=== PATIENT | female | born 1950 | race African-American/Black ===

== ENCOUNTER 2020-01-24 17:23 | Observation (INO) | payer OTHER, SELFPAY ==
[2020-01-24] VITALS (9 sets, daily range): BP systolic 128–148; BP diastolic 79–86; PULSE 65–76; RESP 18–21; TEMP 36.3–37.2; O2SAT 91–100
--- NOTE | ~2020-01-24 | XR_ITS ---
EXAMINATION: XR chest 1V portable INDICATION: Hypoxia and shortness of breath TECHNIQUE: Portable AP chest at 1835 hours COMPARISON: 06/08/2018 FINDINGS: The lungs are free of acute opacities. There is no pleural effusion or pneumothorax. The ca rdiomediastinal silhouette is normal. There is mild osteoarthritis of the shoulders. IMPRESSION: 1. No acute cardiopulmonary abnormality. Reviewed, dictated and finalized at location A. [employer]
--- NOTE | 2020-01-24 17:34 | ED.SOB ---
HPI - SOB/Dyspnea General Chief Complaint: Shortness of Breath/Dyspnea Stated Complaint: SOB Time Seen by Provider: 01/24/20 17:30 Source: EMS Mode of arrival: EMS Limitations: no limitations History of Present Illness HPI Narrative: Patient is a 69-year-old female with a history of congestive heart failure, hypertension, schizophrenia, COPD, asthma, diabetes, previous CVA who presents for evaluation of low oxygen saturation. Patient reportedly had oxygen saturation of 85% at outside care facility, and EMS was called. For EMS, oxygen saturation was 95% on room air. Patient was transferred to our facility is 88-91% on room air. She is denying any chest pain, she reports some nausea without vomiting. She is denying current cough or shortness of breath. Patient reports chronic right knee swelling consistent with her osteoarthritis. She is denying any other acute pain. Patient with recent Covid swab negative per EMS. Related Data Home Medications Medication Instructions Recorded Confirmed amlodipine 01/24/20 aripiprazole mg 01/24/20 benztropine 01/24/20 carbamazepine 01/24/20 divalproex PO 01/24/20 docusate sodium PO 01/24/20 ergocalciferol (vitamin D2) 01/24/20 hydralazine 01/24/20 insulin lispro unit SUBCUT 01/24/20 losartan 01/24/20 metformin mg 01/24/20 potassium chloride [Klor-Con 10] meq PO 01/24/20 simvastatin mg 01/24/20 Allergies Allergy/AdvReac Type Severity Reaction Status Date / Time Penicillins Allergy Unknown Hives / Verified 01/24/20 18:25 Red Face Review of Systems Review of Systems: Narrative: CONSTITUTIONAL: Denies fever, chills, or sweats. ENT: Denies rhinorrhea, congestion, sore throat, or otalgia. CARDIOVASCULAR: Denies chest pain, palpitations, or edema. RESPIRATORY: Denies cough or dyspnea. GASTROINTESTINAL: Denies abdominal pain, reports intermittent nausea, none currently GENITOURINARY: Denies dysuria or hematuria. SKIN: Denies rash or itching. MUSCULOSKELETAL: Denies back pain, reports chronic bilateral knee joint pain, or myalgia. NEUROLOGIC: Denies headache, numbness, or weakness. [facility] Past Medical History Medical History Asthma Congestive heart failure COPD (chronic obstructive pulmonary disease) CVA (cerebral vascular accident) Diabetes Schizophrenia Social History Social History (Updated 01/24/20 @ 17:53 by Ashley Robles MD) Alcohol intake: never Substance use: never Living arrangements: assisted living Gender identity (if verbalized by the patient): Female Exam Narrative: Exam Narrative: GENERAL: Awake, alert, conversant HEAD: Normocephalic, atraumatic. EYES: PERRLA and EOMI. ENT: Nares clear, no rhinorrhea or epistaxis. Mucous membranes moist. NECK: Supple. CHEST: No respiratory distress, breathing even and non labored, no crackles, no wheezing HEART: Regular rate, sinus rhythm ABDOMEN:Non distended, non tender EXTREMITIES: Normal range of motion. No edema. SKIN: Warm, dry, no rash. NEURO:No focal deficits. Patient appears to have mild developmental delay, possibly from CVA. Alert and oriented x3. Course Vital Signs Vital signs: Vital Signs Temperature 36.3 C L 01/24/20 17:24 Pulse Rate 70 01/24/20 17:24 Respiratory Rate 20 01/24/20 17:24 Blood Pressure 145/85 H 01/24/20 17:24 Pulse Oximetry 91 01/24/20 17:24 Temperature 36.3 C L 01/24/20 17:24 Pulse Rate 76 01/24/20 18:02 Respiratory Rate 20 01/24/20 18:02 Blood Pressure 141/86 H 01/24/20 18:02 Pulse Oximetry 99 01/24/20 19:35 MDM - SOB/Dyspnea MDM Narrative Medical decision making narrative: Patient presented for evaluation of hypoxemia found at outside facility. At the time of initial assessment, patient is borderline hypoxic here in the emergency department, no increased work of breathing. No crackles or wheezing bilaterally. Patient is really denying any complaints although
--- NOTE | 2020-01-24 17:54 | ECG_ITS ---
Measurements Intervals [place] Rate: 71 P: 38 NC: 174 QRS: 28 QRSD: 75 T: 160 QT: 411 QTc: 450 Interpretive Statements SINUS RHYTHM ST-T WAVE ABNORMALITY IN ANTEROLATERAL LEADS- CONSIDER ISCHEMIA BASELINE ARTIFACT- I, II, AVR, AVL, AVF, V1-V3 ABNORMAL ECG Electronically Signed On 01-24-2020 19:28:18 SUPERVISOR WEAVING by Willy Crawford D.O.
[2020-01-24 18:15] LABS: Base Excess ABG 4.3 mEq/l (+/-2.0); Carboxyhemoglobin 0.6 % THb (0-2.0); Fractional Inspired Oxygen 24 %; HCO3 ABG 30.3 mEq/l (22.0-26.0); Methemoglobin ABG 0.2 %THb (0-1.5); Oxygen Content ABG 18.8 %vol (16.0-22.0); Oxyhemoglobin 97.4 % THb (90.0-100.0); PCO2 ABG 51.1 mmHg (35.0-45.0); PO2 FiO2 Ratio Arterial Blood 6.54 %; Reduced Hemoglobin 1.8 %THb (0-5.0); Total Hemoglobin 13.5 g/dL (12.0-18.0); pH ABG 7.391 (7.350-7.450)
[2020-01-24 18:16] LABS: Device NASAL CANNULA; Modified Allen's Test Pass; Site Drawn LEFT RADIAL
--- NOTE | 2020-01-24 18:40 | PC.NURSE ---
PT WEANED OFF O2 2L PER DR SAUL
--- NOTE | 2020-01-24 19:10 | PC.NURSE ---
PT NOTED TO HAVE SATS 88% ROOM AIR. PLACED BACK ON 2L O2 PNC
[2020-01-24 19:15] LABS: Basophils Percent Auto 0.8 % (0.2-1.2); Eosinophils Absolute Auto 0.1 K/mm3 (0-0.3); Eosinophils Percent Auto 1.7 % (0-4.4); Hematocrit 39.4 % (37.0-47.0); Hemoglobin 13.3 g/dL (12.0-15.0); Immature Granulocyte Absolute 0.01 K/mm3 (0.00-0.031); Immature Granulocyte Percent A 0.2 % (0-0.5); Lymphocytes Absolute Auto 2.13 K/mm3 (0.9-3.2); Lymphocytes Percent Auto 40.6 % (18.3-44.2); Mean Corpuscular HGB Conc 33.8 g/dl (32-36); Mean Corpuscular Hemoglobin 32.4 pg (26-34); Mean Corpuscular Volume 95.9 fl (80-100); Mean Platelet Volume 11.7 fl (7.4-10.4); Monocytes Absolute Auto 0.5 K/mm3 (0.1-0.6); Monocytes Percent Auto 10.1 % (2.6-8.5); Neutrophils Absolute Auto 2.4 K/mm3 (1.3-6.7); Neutrophils Percent Auto 46.6 % (45.5-73.1); Platelet Count Result 209 k/mm3 (150-375); Red Blood Count 4.11 M/mm3 (4.2-5.4); Red Cell Distribution Width 12.6 % (11.5-14.5); White Blood Count 5.2 K/mm3 (4.5-10.0)
[2020-01-24 19:26] LABS: INR 0.9; Partial Thromboplastin Time 26.9 SECONDS (22.3-36.8); Prothrombin Time 12.9 Seconds (11.1-14.7)
[2020-01-24 19:29] LABS: Anion Gap 6 mmol/L (8-16); Blood Urea Nitrogen 21 mg/dL (7-17); Calcium 9.7 mg/dL (8.4-10.2); Carbon Dioxide 35 mmol/L (22-30); Chloride 100 mmol/L (98-107); Estimated CRCL calculation 44 ml/min; Estimated Glomerular Filt Rate 54; Glucose 94 mg/dL (65-105); Potassium 3.5 mmol/L (3.4-5.0); Sodium 141 mmol/L (137-145)
--- NOTE | 2020-01-24 19:36 | PC.NURSE ---
Patient O2 at 100 on 2L. Patient put at 1L.
[2020-01-24 19:41] LABS: NT Pro B Type Natriuretic Pept 290 PG/ML (5-100); Troponin I 0.018 ng/mL (0.000-0.034)
--- NOTE | 2020-01-24 21:02 | PM.IMHP ---
H&P: HPI History of Present Illness Date/Time: 01/24/20 21:02 Chief complaint: Hypoxemia Narrative: This is a pleasant 69 year old Diabetic female with COPD and CHF presented to the hospital with a complaint of increased fatigue, shortness of breath, and a poorly productive sporadic cough for the past 3 days. She was found to be saturating around 85% at the SNF. On arrival to the hospital she was found to be saturating 89% on room air. Tonight she reports that she has been sleeping a lot and has had generalized joint pains. She isn't sure if she has had fever. The patient was placed on 1 liter of oxygen via NC. She has also been swabbed for COVID-19. Currently she denies any chest pain, nausea, vomiting, abdominal pain, dysuria, hematuria, diarrhea, or rectal bleeding. No other complaints. Review of Systems Review of Systems: All systems reviewed & are unremarkable except as noted in HPI and below PMFSH Past Medical History Medical History Asthma Congestive heart failure COPD (chronic obstructive pulmonary disease) CVA (cerebral vascular accident) Diabetes Schizophrenia Surgical History Surgical History History of section, classical History of left hip replacement Family History Family History Mother Cancer Mother Heart disease Social History Social History Smoking status: Never smoker Alcohol intake: former Substance use: never Living arrangements: assisted living Gender identity (if verbalized by the patient): Female Spiritual care concerns: Yes (OK FOR VISITS) Meds Home Medications and Allergies Home Medications Medication Instructions Recorded Confirmed Type amlodipine 10 mg PO DAILY 01/24/20 01/25/20 History aripiprazole 30 mg PO DAILY 01/24/20 01/25/20 History benztropine 0.5 mg PO BID 01/24/20 01/25/20 History carbamazepine 200 mg PO BID 01/24/20 01/25/20 History divalproex 250 mg PO DAILY 01/24/20 01/25/20 History docusate sodium 100 mg PO DAILY 01/24/20 01/25/20 History ergocalciferol (vitamin D2) 50,000 mcg PO MONTHLY 01/24/20 01/25/20 History hydralazine 100 mg PO TID 01/24/20 01/25/20 History losartan 100 mg PO DAILY 01/24/20 01/25/20 History metformin 250 mg PO BID 01/24/20 01/25/20 History potassium chloride [Klor-Con 10] 10 meq PO DAILY 01/24/20 01/25/20 History simvastatin 20 mg PO HS 01/24/20 01/25/20 History Milk of Magnesia 30 ml PO HS PRN 01/25/20 01/25/20 History acetaminophen 650 mg PO Q4H PRN 01/25/20 01/25/20 History aspirin 81 mg PO DAILY 01/25/20 01/25/20 History divalproex 500 mg PO HS 01/25/20 01/25/20 History famotidine 20 mg PO DAILY 01/25/20 01/25/20 History furosemide 40 mg PO DAILY 01/25/20 01/25/20 History gabapentin 400 mg PO TID 01/25/20 01/25/20 History haloperidol 5 mg PO TID 01/25/20 01/25/20 History ibuprofen 800 mg PO Q6H PRN 01/25/20 01/25/20 History insulin lispro See Protocol SUBCUT AC 01/25/20 01/25/20 History ipratropium-albuterol 3 ml INHALATION QID PRN 01/25/20 01/25/20 History omeprazole 20 mg PO DAILY 01/25/20 01/25/20 History polyethylene glycol 1 ea MISCELLANEOUS DAILY 01/25/20 01/26/20 History sertraline 25 mg PO DAILY 01/25/20 01/25/20 History sertraline 50 mg PO DAILY 01/25/20 01/25/20 History trazodone 50 mg PO HS PRN 01/25/20 01/25/20 History albuterol sulfate [Proventil HFA] 2 puff INHALATION Q6HRT PRN #6.7 g 01/26/20 Rx clonidine [[place]-BDA-6] 1 patch TRANSDERMAL WEEKLY #4 ea 01/26/20 Rx Allergies Allergy/AdvReac Type Severity Reaction Status Date / Time Penicillins Allergy Unknown Hives / Verified 01/24/20 18:25 Red Face Vital Signs Vital Signs - 24 hr 01/24/20 17:24 01/24/20 17:25 01/24/20 17:30 Temperature 36.3 C L Pulse Rate 70 70 Respiratory Rate 20 Blood Pressure 145/85 H
[2020-01-24 22:52] LABS: Glucose Point of Care 95 (65-105)
[2020-01-25] VITALS (11 sets, daily range): BP systolic 117–210; BP diastolic 63–105; PULSE 68–93; RESP 18–20; TEMP 36.4–37.1; O2SAT 92–100
--- NOTE | 2020-01-25 02:02 | PC.NURSE ---
2130 PT RECEIVED PER STRETCHER ALERT AND ORIENTED X3. ORIENETED TO ROOM AND SURROUNDINGS.INSTRUCTED SINGLE NEEDLE OPERATOR LIGHT USE, ISOLATION PROCEEDURES AND BED ALARM USE. NO DISTRESS NOTED.
--- NOTE | 2020-01-25 04:23 | PCRCNOTE ---
Window of time for administration has passed. See next scheduled administration.
[2020-01-25 07:02] LABS: Basophils Percent Auto 0.6 % (0.2-1.2); Eosinophils Absolute Auto 0.1 K/mm3 (0-0.3); Eosinophils Percent Auto 1.6 % (0-4.4); Hematocrit 39.3 % (37.0-47.0); Hemoglobin 13.5 g/dL (12.0-15.0); Immature Granulocyte Absolute 0.01 K/mm3 (0.00-0.031); Immature Granulocyte Percent A 0.2 % (0-0.5); Lymphocytes Absolute Auto 2.66 K/mm3 (0.9-3.2); Lymphocytes Percent Auto 42.6 % (18.3-44.2); Mean Corpuscular HGB Conc 34.4 g/dl (32-36); Mean Corpuscular Hemoglobin 31.9 pg (26-34); Mean Corpuscular Volume 92.9 fl (80-100); Monocytes Absolute Auto 0.7 K/mm3 (0.1-0.6); Monocytes Percent Auto 11.2 % (2.6-8.5); Neutrophils Absolute Auto 2.7 K/mm3 (1.3-6.7); Neutrophils Percent Auto 43.8 % (45.5-73.1); Platelet Count Result 203 k/mm3 (150-375); Red Blood Count 4.23 M/mm3 (4.2-5.4); Red Cell Distribution Width 12.2 % (11.5-14.5); White Blood Count 6.2 K/mm3 (4.5-10.0)
[2020-01-25 07:20] LABS: Anion Gap 6 mmol/L (8-16); Blood Urea Nitrogen 23 mg/dL (7-17); Calcium 10.1 mg/dL (8.4-10.2); Carbon Dioxide 35 mmol/L (22-30); Chloride 102 mmol/L (98-107); Estimated CRCL calculation 45 ml/min; Estimated Glomerular Filt Rate > 60; Glucose 98 mg/dL (65-105); Magnesium 2.4 mg/dL (1.6-2.3); Potassium 3.3 mmol/L (3.4-5.0); Sodium 143 mmol/L (137-145)
[2020-01-25 08:04] LABS: D Dimer 0.32 ug/mL (<0.48)
[2020-01-25] MEDS: hydrALAZINE HCL 50 MG TABLET 100 MG PO ×3 (08:27→17:41)
[2020-01-25] MEDS: GABAPENTIN 400 MG CAPSULE PO ×3 (08:28→17:42)
[2020-01-25] MEDS: SERTRALINE HCL 25 MG TABLET PO (08:28)
[2020-01-25] MEDS: carBAMazepine 200 MG TABLET PO ×2 (08:28→17:42)
[2020-01-25] MEDS: HALOPERIDOL 5 MG TABLET PO ×3 (08:28→17:42)
[2020-01-25] MEDS: ARIPiprazole 10 MG TABLET 30 MG PO (08:28)
[2020-01-25] MEDS: SERTRALINE HCL 50 MG TABLET PO (08:29)
[2020-01-25] MEDS: PANTOPRAZOLE SOD SESQUIHYDRATE 20 MG TAB PO (08:29)
[2020-01-25] MEDS: amLODIPine BESYLATE 5 MG TABLET 10 MG PO (08:29)
[2020-01-25] MEDS: FUROSEMIDE 40 MG TABLET PO (08:29)
[2020-01-25] MEDS: ENOXAPARIN 40 MG/0.4 ML SYRINGE SUB-Q (08:29)
[2020-01-25] MEDS: DOCUSATE SODIUM 100 MG CAPSULE PO (08:29)
[2020-01-25] MEDS: FAMOTIDINE 20 MG TABLET PO (08:29)
[2020-01-25] MEDS: ASPIRIN 81 MG ENTERIC TABLET PO (08:30)
[2020-01-25] MEDS: DEXAMETHASONE SOD PHOS INJ 4 MG/ML VIAL 6 MG IV PUSH (08:30)
[2020-01-25] MEDS: DIVALPROEX SODIUM 250 MG TAB.ER.24H PO (08:31)
[2020-01-25 08:47] LABS: Glucose Point of Care 93 (65-105)
[2020-01-25 09:23] LABS: Glucose Point of Care 94 (65-105)
[2020-01-25] MEDS: ALBUTEROL SULFATE (*SP) AEROSOL 1 PUFF 2 PUFF INHALATION ×3 (10:03→21:00)
[2020-01-25] MEDS: cloNIDine HCL 0.1 MG TABLET 0.3 MG PO ×2 (10:56→17:46)
[2020-01-25] MEDS: LOSARTAN POTASSIUM 100 MG TABLET PO (10:57)
[2020-01-25] MEDS: cloNIDine 0.3 MG/24 HR PATCH 1 PATCH TRANSDERM (10:58)
[2020-01-25 12:38] LABS: Glucose Point of Care 161 (65-105)
[2020-01-25] MEDS: BENZTROPINE MESYLATE 0.5 MG TABLET PO ×2 (13:12→17:41)
[2020-01-25 14:21] LABS: SARS-CoV-2 RNA PCR Negative
[2020-01-25] MEDS: POTASSIUM CHLORIDE 20 MEQ PACKET (FOR LIQUID) 40 MEQ PO (14:21)
--- NOTE | 2020-01-25 15:46 | PM.IMPN ---
Progress Note: A&P Assessment and Plan (1) Acute respiratory failure with hypoxia: Code(s): J96.01 - Acute respiratory failure with hypoxia Status: Acute Assessment and Plan: Patient was admitted to the hospitalist service due to hypoxia of unknown origin -she is being weaned off oxygen and is 96% on 1 L at this time -will order home O2 evaluation -it is unclear why she was hypoxic on admission but it has resolved. May benefit from albuterol inhaler at discharge. Consider bronchospasm -chest x-ray normal, no signs of pneumonia -no chest pain or other evidence of heart failure -COVID-19 test negative -D-dimer negative, PE unlikely -we going home tomorrow if patient continues to improve. May need outpatient sleep study. Will order apnea link test tonight -will stop dexamethasone (2) COPD (chronic obstructive pulmonary disease): Qualifiers: COPD type: unspecified COPD Qualified Code(s): J44.9 - Chronic obstructive pulmonary disease, unspecified Code(s): J44.9 - Chronic obstructive pulmonary disease, unspecified Status: Chronic Assessment and Plan: -Continue bronchodilators -no evidence of COPD exacerbation at this time, will stop steroids (3) Congestive heart failure: Qualifiers: Heart failure type: unspecified Heart failure chronicity: chronic Qualified Code(s): I50.9 - Heart failure, unspecified Code(s): I50.9 - Heart failure, unspecified Status: Chronic Assessment and Plan: Patient appears euvolemic at this time (4) Diabetes: Qualifiers: Diabetes mellitus type: type 2 Diabetes mellitus shelter insulin use: with buttermaker continuous churn use Diabetes mellitus complication status: without complication Qualified Code(s): E11.9 - Type 2 diabetes mellitus without complications; Z79.4 - senior living (current) use of insulin Code(s): E11.9 - Type 2 diabetes mellitus without complications Status: Chronic Assessment and Plan: Last glucose 161 -accuchecks, SSI Coverage, hypoglycemic protocol (5) Schizophrenia: Qualifiers: Schizophrenia type: unspecified Qualified Code(s): F20.9 - Schizophrenia, unspecified Code(s): F20.9 - Schizophrenia, unspecified Status: Chronic Assessment and Plan: Continue home medications -chronic and stable at this time (6) Uncontrolled hypertension: Code(s): I10 - Essential (primary) hypertension Status: Acute Assessment and Plan: Patient has had significant hypertension since admission -some of her home blood pressure medications were held which could be the cause -I am going to transition her from the clonidine pill to the patch to see if this helps with a more steady state -last blood pressure 151/78, much improved from her max which was 210/105 -no neurological deficits or headache on exam Time Spent With Patient Time with patient: 25 - 35 minutes Subjective Date/time seen: 01/25/20 15:46 Interval history: Pt is a 69-year-old female here for hypoxia and hypertension. Patient was seen today and is doing well and has no complaints. She has no shortness of breath while at rest and has been walking to the commode without shortness of breath on exertion. She denies chest pain, headaches, fevers, chills, nausea, vomiting, diarrhea, constipation, abdominal pain, or leg swelling. Review of Systems Review of Systems: All systems reviewed & are unremarkable except as noted in HPI and below Exam Narrative: Exam Narrative: General: Well developed well nourished patient in NAD HEENT: normocephalic Neck: supple Neuro: Alert and oriented x4 CV:RRR Resp:CTA, no crackles, rhonchi or wheezing Abd: Soft, non distended. No pain to palpation. Positive bowel sounds Extremities: No swelling, erythema, or pain to palpation. Objective Data Vital Signs Vital Signs: Vital Signs - 24 hr 01/24/20 17:24 01/24/20 17:2
[2020-01-25 19:03] LABS: Glucose Point of Care 158 (65-105)
[2020-01-25] MEDS: SIMVASTATIN 20 MG TABLET PO (21:01)
[2020-01-25] MEDS: DIVALPROEX SODIUM ER 500 MG TAB PO (21:01)
[2020-01-25 22:24] LABS: Glucose Point of Care 154 (65-105)
[2020-01-26] MEDS: ALBUTEROL SULFATE (*SP) AEROSOL 1 PUFF 2 PUFF INHALATION ×2 (02:25→08:00)
[2020-01-26 05:35] VITALS: BP 148/82; PULSE 61; RESP 18; TEMP 36.2; O2SAT 100
[2020-01-26 06:52] LABS: Alanine Aminotransferase 9 U/L (4-35); Albumin Level 3.5 g/dL (3.5-5.1); Alkaline Phosphatase 57 U/L (38-126); Anion Gap 5 mmol/L (8-16); Aspartate Amino Transferase 18 U/L (14-36); Bilirubin,Total 0.3 mg/dL (0.2-1.3); Blood Urea Nitrogen 28 mg/dL (7-17); Calcium 9.3 mg/dL (8.4-10.2); Carbon Dioxide 33 mmol/L (22-30); Chloride 103 mmol/L (98-107); Estimated CRCL calculation 45 ml/min; Estimated Glomerular Filt Rate > 60; Glucose 93 mg/dL (65-105); Potassium 3.8 mmol/L (3.4-5.0); Sodium 141 mmol/L (137-145)
[2020-01-26 08:00] VITALS: PULSE 61; RESP 18; O2SAT 100
[2020-01-26] MEDS: SERTRALINE HCL 25 MG TABLET PO (08:05)
[2020-01-26] MEDS: DOCUSATE SODIUM 100 MG CAPSULE PO (08:05)
[2020-01-26] MEDS: SERTRALINE HCL 50 MG TABLET PO (08:05)
[2020-01-26] MEDS: FAMOTIDINE 20 MG TABLET PO (08:05)
[2020-01-26] MEDS: LOSARTAN POTASSIUM 100 MG TABLET PO (08:05)
[2020-01-26] MEDS: DIVALPROEX SODIUM 250 MG TAB.ER.24H PO (08:06)
[2020-01-26] MEDS: ARIPiprazole 10 MG TABLET 30 MG PO (08:06)
[2020-01-26] MEDS: ASPIRIN 81 MG ENTERIC TABLET PO (08:06)
[2020-01-26] MEDS: BENZTROPINE MESYLATE 0.5 MG TABLET PO (08:06)
[2020-01-26] MEDS: GABAPENTIN 400 MG CAPSULE PO ×2 (08:06→12:52)
[2020-01-26] MEDS: amLODIPine BESYLATE 5 MG TABLET 10 MG PO (08:06)
[2020-01-26] MEDS: hydrALAZINE HCL 50 MG TABLET 100 MG PO ×2 (08:07→12:51)
[2020-01-26] MEDS: carBAMazepine 200 MG TABLET PO (08:07)
[2020-01-26] MEDS: FUROSEMIDE 40 MG TABLET PO (08:07)
[2020-01-26] MEDS: ENOXAPARIN 40 MG/0.4 ML SYRINGE SUB-Q (08:14)
[2020-01-26] MEDS: HALOPERIDOL 5 MG TABLET PO ×2 (08:14→12:52)
[2020-01-26] MEDS: cloNIDine HCL 0.1 MG TABLET 0.3 MG PO (08:14)
[2020-01-26] MEDS: PANTOPRAZOLE SOD SESQUIHYDRATE 20 MG TAB PO (08:15)
[2020-01-26 10:30] VITALS: O2SAT 87
[2020-01-26 10:35] VITALS: O2SAT 92
[2020-01-26 10:40] VITALS: O2SAT 90
[2020-01-26 10:45] VITALS: O2SAT 93
--- NOTE | 2020-01-26 11:42 | PM.DS ---
DS: Admitting Diagnosis Admitting Diagnosis Admitting Diagnosis: Hypoxemia DS: Discharge Diagnosis Discharge Diagnosis (1) Acute respiratory failure with hypoxia: Code(s): J96.01 - Acute respiratory failure with hypoxia Status: Acute Assessment and Plan: Patient was admitted to the hospitalist service due to hypoxia of unknown origin -she was weaned down on her oxygen to her home settings and was doing great at 93% -suspect bronchospasm as her COVID-19 was negative, chest x-ray was negative, and D-dimer negative. PE seem less likely since the patient improved -no chest pain or other evidence of heart failure (2) COPD (chronic obstructive pulmonary disease): Qualifiers: COPD type: unspecified COPD Qualified Code(s): J44.9 - Chronic obstructive pulmonary disease, unspecified Code(s): J44.9 - Chronic obstructive pulmonary disease, unspecified Status: Chronic Assessment and Plan: -Continue bronchodilators -no evidence of COPD exacerbation at this time, steroids stopped (3) Congestive heart failure: Qualifiers: Heart failure type: unspecified Heart failure chronicity: chronic Qualified Code(s): I50.9 - Heart failure, unspecified Code(s): I50.9 - Heart failure, unspecified Status: Chronic Assessment and Plan: Patient appears euvolemic at this time (4) Diabetes: Qualifiers: Diabetes mellitus type: type 2 Diabetes mellitus terminal computer operator insulin use: with terminal computer operator use Diabetes mellitus complication status: without complication Qualified Code(s): E11.9 - Type 2 diabetes mellitus without complications; Z79.4 - superintendent marine oil terminal (current) use of insulin Code(s): E11.9 - Type 2 diabetes mellitus without complications Status: Chronic Assessment and Plan: Last glucose 140 -continue home regimen (5) Schizophrenia: Qualifiers: Schizophrenia type: unspecified Qualified Code(s): F20.9 - Schizophrenia, unspecified Code(s): F20.9 - Schizophrenia, unspecified Status: Chronic Assessment and Plan: Continue home medications -chronic and stable at this time (6) Uncontrolled hypertension: Code(s): I10 - Essential (primary) hypertension Status: Acute Assessment and Plan: Patient has had significant hypertension since admission -some of her home blood pressure medications were held which was likely the cause -blood pressure is much improved after medication adjustment. Last blood pressure 148/82 -her clonidine pill was changed to a clonidine patch -Her max which was 210/105 -no neurological deficits or headache on exam DS: Summary Hospital Course Reason for hospitalization: Acute respiratory failure with hypoxia Hospital Course: Patient is a 69-year-old female on chronic oxygen with history of schizophrenia, COPD, asthma and CHF who presented emergency room for hypoxia from the facility. Admission to the ER there was no wheezing and chest x-ray was negative. CBC within normal limits. BMP relatively normal. ABG showed chronic CO2 retention within normal pH and oxygen saturation of 99%. She was admitted to the hospitalist service to be observed. Her COVID-19 test was negative and her D-dimer was negative as well. PE seem less likely. She was back to her normal oxygen requirements and doing well on that. She had no complaints the day of discharge. Suspect possible bronchospasm. She has history of COPD and asthma but no wheezing at any time throughout the stay. Steroids were initially given but she was not discharged on any. Overall, the patient did well and was discharged back to her facility in stable condition. Date of discharge 01/26/20 Status at Discharge Overall status at discharge: patient is back to baseline Time Spent with Patient Time attestation: Total time spent providing and/or coordinating discharge services:34 min Time spent: Greater
--- NOTE | 2020-01-26 11:55 | HOMEO2EVAL ---
Home Oxygen Evaluation RC: Home Oxygen (O2) Evaluation Start: 01/25/20 15:52 Freq: ONCE Status: Active Protocol: RPE Activity Type Activity Date Activity User E-Sign Co-Sign Detail Recorded Client Recorded Date Recorded By Document 01/26/20 10:30 SUSY [email or web address] 01/26/20 11:54 SUSY Document 01/26/20 10:35 SUSY [email or web address] 01/26/20 11:54 SUSY Document 01/26/20 10:40 SUSY [email or web address] 01/26/20 11:54 SUSY Document 01/26/20 10:45 SUSY [email or web address] 01/26/20 11:54 SUSY 01/26/20 01/26/20 01/26/20 10:30 10:35 10:40 Home O2 Evaluation Test Phase Resting Resting Exercise Oxygen Delivery Room Air Nasal Cannula Nasal Cannula Oxygen Flow Rate (L/min) 1 1 Pulse Oximetry (90-100 %) 87 L 92 90 Home Oxygen Evaluation Comments 01/26/20 10:45 Home O2 Evaluation Test Phase Resting Oxygen Delivery Nasal Cannula Oxygen Flow Rate (L/min) 1 Pulse Oximetry (90-100 %) 93 Home Oxygen Evaluation Comments Pt requires 1 liters rest and activity
[2020-01-26 13:00] LABS: Glucose Point of Care 140 (65-105)
== END 2020-01-26 13:55 ==
LOC: ANHED 17:56 → ANH3MEDSUR 20:10
PROVIDERS: Physician Assistant; Admitting Provider Family Medicine; Emergency Provider Emergency Medicine; Visit Provider Family Medicine
DX: J96.01 Acute respiratory failure with hypoxia (principal); Z20.828 Contact with and (suspected) exposure to other viral communicable diseases; J44.9 Chronic obstructive pulmonary disease, unspecified; E11.9 Type 2 diabetes mellitus without complications; F20.9 Schizophrenia, unspecified; I11.0 Hypertensive heart disease with heart failure; I50.9 Heart failure, unspecified; Z79.4 Long term (current) use of insulin; Z99.81 Dependence on supplemental oxygen; Z96.642 Presence of left artificial hip joint; Z86.73 Personal history of transient ischemic attack (TIA), and cerebral infarction without residual deficits
CPT/HCPCS: 36415; 36600; 71045; 80048; 80076; 82375; 82805; 83050; 83735; 83880; 84484; 85025; 85380; 85610; 85730; 87635; 93005; 94640; 94762; 96372; 96374; 99291; A9270; C9803; G0378; G0379; J1100; J1650; U0003

== ENCOUNTER 2020-07-12 10:15 | Outpatient (CLI) | payer OTHER, SELFPAY ==
--- NOTE | ~2020-07-12 | MM_ITS ---
EXAMINATION: MM screening vibha BI w asim HISTORY: Screening mammogram TECHNIQUE: Craniocaudal and mediolateral oblique 3-D tomosynthesis images were obtained and synthetic 2-D images were generated. CAD analysis was submitted and interpreted. COMPARISON: No prior mammogram is available for comparison at this institution. BREAST PARENCHYMAL COMPOSITION: There are scattered areas of fibroglandular density. FINDINGS: There is no evidence of suspicious mass, calcification, or architectural distortion to sugg est malignancy in either breast. There has been no suspicious interval change. IMPRESSION: 1. No mammographic evidence of malignancy. 2. Recommend routine screening mammography in one year. BI-RADS Category 1: Negative Reviewed, dictated and finalized at location A.
== END 2020-07-12 10:16 | disposition home or self-care (01) ==
DX: Z12.31 Encounter for screening mammogram for malignant neoplasm of breast (principal)
CPT/HCPCS: 77063; 77067

== ENCOUNTER 2021-05-22 10:00 | Observation (INO) | payer OTHER, SELFPAY ==
[2021-05-22] VITALS (13 sets, daily range): BP systolic 75–117; BP diastolic 46–61; PULSE 59–68; RESP 13–17; TEMP 36.7; O2SAT 91–99
--- NOTE | ~2021-05-22 | CT_ITS ---
EXAMINATION: CT abdomen pelvis wo con EXAM DATE: 05/22/2021 11:23 INDICATION: Abdominal pain. TECHNIQUE: Spiral CT of the abdomen and pelvis was performed without contrast. Axial, coronal and s agittal images of the abdomen and pelvis were reviewed. The dose-length product (DLP) for this exami nation was 1109.22 mGy-cm. The exposure was tailored according to patient size (auto mA exposure con trol), and iterative reconstruction (ASIR) was used as additional dose reduction technique. There is no prior study for comparison. FINDINGS: The liver, spleen, adrenal glands and pancreas are unremarkable. Gallbladder not identifie d, patient likely has had cholecystectomy. There is no nephrolithiasis or hydronephrosis. The uter us is unremarkable. The bladder is unremarkable. There is no retroperitoneal or pelvic lymphadenop athy. There is mild scattered arteriosclerotic disease. Small umbilical fat-containing hernia. The appendix is normal. The stomach and small bowel are unremarkable. Moderately distended colon wi th air-fluid levels, no wall thickening or colitis. Patient could have diarrhea or gastroenteritis. C linical correlation. No free intraperitoneal gas. The heart is normal in size. There are no sarahi cardial or pleural effusions. The lung bases are unremarkable. There are no osteoblastic or osteoly tic lesions identified. Old right inferior ramus fracture. IMPRESSION: Moderately distended colon with air-fluid levels, consider gastroenteritis and/for diarrh ea.. Reviewed, dictated and finalized at location A. IMPRESSION: Moderately distended colon with air-fluid levels, consider gastroen teritis and/for diarrhea..
--- NOTE | ~2021-05-22 | US_ITS ---
EXAMINATION: US venous doppler [facility] DATE: 05/23/2021 16:54 INDICATION: Lower limb pain and swelling TECHNIQUE: Grayscale ultrasound images without and with compression and Doppler ultrasound images of the bilateral lower extremity veins were obtained. COMPARISON: 12/05/2017 FINDINGS: The visualized portions of right common femoral vein, profunda (deep) femoral vein, femoral vein, pop liteal vein, posterior tibial veins, peroneal veins, gastrocnemius vein and greater saphenous vein ou tflow remain patent. The visualized portions of left common femoral vein, profunda femoral vein, femoral vein, popliteal v ein, posterior tibial veins, peroneal veins, gastrocnemius vein and greater saphenous vein outflow re main patent. IMPRESSION: 1. No deep venous thrombosis in either lower limb. Reviewed, dictated and finalized at location B.
--- NOTE | ~2021-05-22 | XR_ITS ---
EXAMINATION: XR chest 1V portable EXAM DATE: 05/22/2021 10:21 INDICATION: Transient Level Of Awareness TECHNIQUE: Portable AP frontal chest x-ray was obtained. Comparison is made to prior examination from 01/24/2020. FINDINGS: The lungs are clear. There are no pleural effusions. Cardiac silhouette is prominent but magnified on this AP technique. There is no pneumothorax suspected. The bones and soft tissues are unremarkable. IMPRESSION: No acute cardiopulmonary findings. Reviewed, dictated and finalized at location A.
--- NOTE | ~2021-05-22 | CT_ITS ---
EXAMINATION: CT brain wo con EXAM DATE: 05/22/2021 11:23 INDICATION: Transient level of awareness, altered mental status. Weakness. TECHNIQUE: Spiral CT of the head was performed without contrast. Axial, coronal and sagittal images were reviewed. The dose-length product (DLP) for this examination was 605.33 mGy-cm. The exposure w as tailored according to patient size, and iterative reconstruction (ASIR) was used as additional dos e reduction technique. Comparison is made to prior examination from 06/04/2018. FINDINGS: There is no acute intraparenchymal hemorrhage. No evidence of intraparenchymal brain mass lesion. No evidence of acute infarction. Please note that initial head CT has limited sensitivity f or small or acute infarctions. There is mild periventricular and subcortical hypodensity, nonspecific but probably related to small vessel ischemic disease. There is mild prominence of the sulci and v entricles related to cerebral atrophy. There is intracranial carotid arteriosclerosis. There are n o extra-axial collections. There is no mass effect or midline shift. The orbits are unremarkable. Soft tissue is unremarkable. The visualized sinuses and mastoid air cells are well aerated. IMPRESSION: 1. No acute intracranial findings. 2. Chronic age related findings. Reviewed, dictated and finalized at location A.
--- NOTE | 2021-05-22 10:07 | ECG_ITS ---
Measurements Intervals [place] Rate: 63 P: 18 NM: 220 QRS: 45 QRSD: 80 T: 161 QT: 443 QTc: 455 Interpretive Statements SINUS RHYTHM WITH FIRST DEGREE AV BLOCK MODERATE T-WAVE ABNORMALITY, CONSIDER LATERAL ISCHEMIA [-0.1+ mV T WAVE IN I/aVL/V5/V6] COMPARED TO ECG 01/24/2020 17:29:32 FIRST DEGREE AV BLOCK NOW PRESENT Electronically Signed On 05-22-2021 14:25:13 CDT by Serena Schwarz M.D.
--- NOTE | 2021-05-22 10:17 | ED.WEAKNESS ---
HPI - Weakness General Chief complaint: Weakness Stated complaint: ALOC, low BP Source: RN notes reviewed History of Present Illness HPI Narrative: [facility] for altered mental status. Per the staff the patient was unresponsive this morning facility and EMS was called when EMS arrived the patient was seen up in bed and awake and alert patient is currently awake and alert x2 she has no complaints at this time she was noted by EMS upon initial arrival to have a low blood pressure and has a low blood pressure upon initial arrival to the emergency department there is no known history of nausea vomiting or diarrhea patient denies any fevers or chills chest pain shortness of breath abdominal pain or any other symptom Related Data Home Medications Medication Instructions Recorded Confirmed aripiprazole 30 mg PO DAILY 01/24/20 01/25/20 benztropine 0.5 mg PO BID 01/24/20 01/25/20 carbamazepine 200 mg PO BID 01/24/20 01/25/20 divalproex 250 mg PO DAILY 01/24/20 01/25/20 docusate sodium 100 mg PO DAILY 01/24/20 01/25/20 ergocalciferol (vitamin D2) 50,000 mcg PO MONTHLY 01/24/20 01/25/20 hydralazine 100 mg PO TID 01/24/20 01/25/20 losartan 100 mg PO DAILY 01/24/20 01/25/20 potassium chloride [Klor-Con 10] 10 meq PO DAILY 01/24/20 01/25/20 simvastatin 20 mg PO HS 01/24/20 01/25/20 Milk of Magnesia 30 ml PO HS PRN 01/25/20 01/25/20 acetaminophen 650 mg PO Q4H PRN 01/25/20 01/25/20 aspirin 81 mg PO DAILY 01/25/20 01/25/20 divalproex 500 mg PO HS 01/25/20 01/25/20 furosemide 40 mg PO DAILY 01/25/20 01/25/20 gabapentin 400 mg PO TID 01/25/20 01/25/20 haloperidol 5 mg PO TID 01/25/20 01/25/20 ibuprofen 800 mg PO Q6H PRN 01/25/20 01/25/20 ipratropium-albuterol 3 ml INHALATION QID PRN 01/25/20 01/25/20 omeprazole 20 mg PO DAILY 01/25/20 01/25/20 polyethylene glycol 1 ea MISCELLANEOUS DAILY 01/25/20 01/26/20 sertraline 25 mg PO DAILY 01/25/20 01/25/20 sertraline 100 mg PO DAILY 01/25/20 01/25/20 trazodone 50 mg PO HS PRN 01/25/20 01/25/20 carvedilol 3.125 mg PO BID 05/22/21 nifedipine 60 mg PO DAILY 05/22/21 05/22/21 pantoprazole PO 05/22/21 05/22/21 Allergies Allergy/AdvReac Type Severity Reaction Status Date / Time Penicillins Allergy Unknown Hives / Verified 05/22/21 11:05 Red Face Review of Systems Review of Systems: Gen.: Denies fevers or chills ENT: Denies congestion Respiratory: Denies shortness of breath or cough CV: Denies chest pain GI: Denies abdominal pain nausea, emesis or diarrhea Musculoskeletal: Denies back pain or muscle pain Neuro: Reports episode of altered mental status Skin: Denies rash Except as documented, all other systems reviewed and negative [facility] Past Medical History Medical History Asthma Cerebrovascular accident Chronic obstructive pulmonary disease Congestive heart failure Deep venous thrombosis Gastroesophageal reflux disease Hypertension Migraine headache Schizophrenia Type 2 diabetes mellitus Vitamin D deficiency Surgical History Surgical History (Updated 05/22/21 @ 13:13 by Chel York PA-C) History of arthroscopy of right knee History of section, classical History of cholecystectomy History of left hip replacement History of sinus surgery Family History Family History (Updated 05/22/21 @ 13:15 by Chel York PA-C) Mother Cancer Heart disease Cerebrovascular accident Social History Social History Social History: Surrogate decision maker: Code status: Full code Smoking status: Never smoker Alcohol intake: former Substance use: never Gender identity (if verbalized by the patient): Female Spiritual care concerns: Yes (OK FOR VISITS) Exam Narrative: APPEARANCE: No acute distress, nontoxic, resting in bed EYES: EOMI HEENT: Normocephalic, atraumatic, OMM RESPIRATORY: No respira
[2021-05-22 10:51] LABS: Basophils Absolute Auto 0.1 K/mm3 (0.0-0.1); Eosinophils Absolute Auto 0.1 K/mm3 (0-0.3); Eosinophils Percent Auto 2.1 % (0-4.4); Hematocrit 33.6 % (37.0-47.0); Hemoglobin 10.9 g/dL (12.0-15.0); Immature Granulocyte Absolute 0.01 K/mm3 (0.00-0.031); Immature Granulocyte Percent A 0.2 % (0-0.5); Lymphocytes Absolute Auto 1.36 K/mm3 (0.9-3.2); Lymphocytes Percent Auto 28.3 % (18.3-44.2); Mean Corpuscular HGB Conc 32.4 g/dl (32-36); Mean Corpuscular Hemoglobin 31.7 pg (26-34); Mean Corpuscular Volume 97.7 fl (80-100); Mean Platelet Volume 10.7 fl (7.4-10.4); Monocytes Absolute Auto 0.7 K/mm3 (0.1-0.6); Neutrophils Absolute Auto 2.6 K/mm3 (1.3-6.7); Neutrophils Percent Auto 53.4 % (45.5-73.1); Platelet Count Result 156 k/mm3 (150-375); Red Blood Count 3.44 M/mm3 (4.2-5.4); Red Cell Distribution Width 13.3 % (11.5-14.5); White Blood Count 4.8 K/mm3 (4.5-10.0)
[2021-05-22 10:55] LABS: Add Urine Microscopic? YES; Appearance Urine Cloudy (Clear); Bilirubin Urine Negative (Negative); Blood Urine Negative (Negative); Color Urine Yellow (Yellow); Glucose Urine UA Negative (Negative); Hyaline Casts Urine 15-19 /lpf; Ketones Urine Negative (Negative); Leukocyte Esterase Ur Negative LEU/UL (Negative); Mucus Urine Rare /lpf; Nitrate Urine Negative (Negative); Protein Urine 1+ mg/dL (Negative); RBC Urine 0-2 /hpf (0-2); Specific Grav Ur 1.021 (1.001-1.035); Squamous Epithelial Cell Urine Rare /hpf (Few); Urobilinogen Urine Negative mg/dL (<2.0)
[2021-05-22 11:02] LABS: Lactic Acid Reflex 1.4 mmol/L (0.7-2.1)
[2021-05-22 11:03] LABS: Alanine Aminotransferase 10 U/L (4-35); Albumin Level 3.8 g/dL (3.5-5.1); Alkaline Phosphatase 69 U/L (38-126); Anion Gap 8 mmol/L (8-16); Aspartate Amino Transferase 24 U/L (14-36); Bilirubin,Total 0.4 mg/dL (0.2-1.3); Blood Urea Nitrogen 46 mg/dL (7-17); Calcium 8.7 mg/dL (8.4-10.2); Carbon Dioxide 29 mmol/L (22-30); Chloride 102 mmol/L (98-107); Estimated CRCL calculation 21 ml/min; Estimated Glomerular Filt Rate 21; Glucose 121 mg/dL (65-110); Lipase 83 U/L (23-300); Sodium 139 mmol/L (137-145)
[2021-05-22 11:08] LABS: Partial Thromboplastin Time 26.2 SECONDS (22.3-36.8)
[2021-05-22 11:13] LABS: INR 1.2; Prothrombin Time 14.3 Seconds (11.1-14.7)
[2021-05-22 11:44] LABS: SARS-CoV-2 RNA PCR Negative
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
[2021-05-22] MEDS: SODIUM CHLORIDE 0.9% IV 1,000 ML 80 ML IV CONT (14:06)
[2021-05-22] MEDS: DIVALPROEX SODIUM ER 500 MG TAB.24H PO (23:18)
[2021-05-22] MEDS: SIMVASTATIN 20 MG TABLET PO (23:18)
[2021-05-22] MEDS: traZODone HCL 50 MG TABLET PO (23:19)
[2021-05-22] MEDS: ACETAMINOPHEN 325 MG TABLET 650 MG PO (23:22)
[2021-05-23] VITALS (15 sets, daily range): BP systolic 145–207; BP diastolic 86–101; PULSE 67–86; RESP 16–18; TEMP 36.1–36.4; O2SAT 93–96
[2021-05-23] MEDS: SODIUM CHLORIDE 0.9% IV 1,000 ML 90 ML IV CONT ×2 (03:35→13:55)
[2021-05-23 05:51] LABS: Basophils Percent Auto 0.5 % (0.2-1.2); Eosinophils Absolute Auto 0.2 K/mm3 (0-0.3); Eosinophils Percent Auto 4.2 % (0-4.4); Hematocrit 35.9 % (37.0-47.0); Hemoglobin 11.4 g/dL (12.0-15.0); Immature Granulocyte Absolute 0.01 K/mm3 (0.00-0.031); Immature Granulocyte Percent A 0.3 % (0-0.5); Lymphocytes Absolute Auto 1.31 K/mm3 (0.9-3.2); Lymphocytes Percent Auto 34.7 % (18.3-44.2); Mean Corpuscular HGB Conc 31.8 g/dl (32-36); Mean Corpuscular Hemoglobin 31.8 pg (26-34); Mean Corpuscular Volume 100.3 fl (80-100); Mean Platelet Volume 10.8 fl (7.4-10.4); Monocytes Absolute Auto 0.5 K/mm3 (0.1-0.6); Monocytes Percent Auto 13.2 % (2.6-8.5); Neutrophils Absolute Auto 1.8 K/mm3 (1.3-6.7); Neutrophils Percent Auto 47.1 % (45.5-73.1); Platelet Count Result 166 k/mm3 (150-375); Red Blood Count 3.58 M/mm3 (4.2-5.4); White Blood Count 3.8 K/mm3 (4.5-10.0)
[2021-05-23 05:58] LABS: Anion Gap 6 mmol/L (8-16); Blood Urea Nitrogen 31 mg/dL (7-17); Calcium 8.6 mg/dL (8.4-10.2); Carbon Dioxide 28 mmol/L (22-30); Chloride 108 mmol/L (98-107); Estimated CRCL calculation 42 ml/min; Estimated Glomerular Filt Rate 49; Glucose 85 mg/dL (65-110); Potassium 3.3 mmol/L (3.4-5.0); Sodium 142 mmol/L (137-145)
[2021-05-23 06:03] LABS: Magnesium 2.1 mg/dL (1.6-2.3)
[2021-05-23 06:46] LABS: Valproic Acid 46.8 ug/mL (50-120)
[2021-05-23 08:12] LABS: Thyroid Stimulating Hormone Reflex 0.609 uIU/mL (0.465-4.68)
--- NOTE | 2021-05-23 08:23 | PM.IMPN ---
Progress Note: A&P Assessment and Plan (1) Unresponsive episode: Code(s): R41.89 - Other symptoms and signs involving cognitive functions and awareness Status: Acute Assessment and Plan: -Patient was reportedly unresponsive for staff at her care facility prior to arrival, though she was alert and oriented to her baseline on EMS arrival. -Her blood pressures were soft however and wondering if that may have caused her decrease in mentation. - No focal findings were noted on exam in her brain CT was unremarkable. -run of v tach this morning, cardiology consulted (2) V tach: Code(s): I47.2 - Ventricular tachycardia Status: Acute Assessment and Plan: -noted on tele today, possibly the cause of unresponsive episode/syncope? -cardiology consult -event monitor on discharge? (3) Elevated troponin: Code(s): R77.8 - Other specified abnormalities of plasma proteins Status: Acute Assessment and Plan: -first trop elevated, serial troponins pending -due to run of vtach? -cardiology consulted (4) Hypotension: Code(s): I95.9 - Hypotension, unspecified Status: Acute Assessment and Plan: -Likely due to hypovolemia as she appears quite dry on exam and blood pressures have improved with IV fluid rehydration. -For now will continue to hold her antihypertensives. -Monitor orthostatic vital signs Q shift. -Initiate fall precautions. (5) Acute kidney injury: Code(s): N17.9 - Acute kidney failure, unspecified Status: Acute Assessment and Plan: -Likely due to hypovolemia and hypoperfusion from hypotension. -I suspect her renal function will improve with IV fluid rehydration alone. -Avoid nephrotoxic agents. -Improving (6) Abnormal computed tomography of abdomen and pelvis: Code(s): R93.5 - Abnormal findings on diagnostic imaging of other abdominal regions, including retroperitoneum Status: Acute Assessment and Plan: -CT shows moderately distended colon with air-fluid levels consistent with gastroenteritis and/or diarrhea. -She denies GI symptoms at this time and her abdominal exam was benign. -Monitor. (7) Hypertension: Code(s): I10 - Essential (primary) hypertension Status: Acute Assessment and Plan: -Blood pressures were soft on arrival but have responded nicely to IV fluid rehydration. -For now will continue to hold antihypertensives and monitor. (8) Schizophrenia: Qualifiers: Schizophrenia type: unspecified Qualified Code(s): F20.9 - Schizophrenia, unspecified Code(s): F20.9 - Schizophrenia, unspecified Status: Chronic Assessment and Plan: -Continue home medications. Subjective Date/time seen: 05/23/21 08:24 Interval history: 70-year-old female with coronary artery disease, congestive heart failure, hypertension, diabetes, schizophrenia, and depression, admitted for unresponsive episode witnessed at her care facility. This morning had a run of v tach. When I saw her today she was naked requesting to go home. She is A/Ox2-3 which is reportedly her baseline. She also ripped her monitor off and does not want to wear it because she thinks it is itchy. She denies cp, sob, N/V/D/abd pain. Denies leg pain or swelling however on exam she is tender in both calves bilaterally and has 1+ edema. Review of Systems Review of Systems: ROS unobtainable: Yes unobtainable due to mental status Exam Narrative: General: Well-developed elderly female sitting up in bed. Weight: 89.5 kg. BMI: 30.9. HEENT: PERRL. Sclerae anicteric. Dry mucous membranes. Poor dental hygiene with multiple missing teeth. Neck: Supple. Respiratory: Respirations are even and nonlabored. Lungs are clear to auscultation bilaterally. Cardiovascular: Regular rate and rhythm with S1-S2. Gastrointestinal: Abdomen is soft, obese, nontender, and
[2021-05-23] MEDS: POTASSIUM CHLORIDE 20 MEQ TABLET PO (08:25)
[2021-05-23] MEDS: polyethylene glycoL 3350 17 GM POWD.PACK PO (08:26)
[2021-05-23] MEDS: ENOXAPARIN 30 MG/0.3 ML SYRINGE SUB-Q (08:26)
[2021-05-23] MEDS: PANTOPRAZOLE SOD SESQUIHYDRATE 20 MG TAB PO (08:27)
[2021-05-23] MEDS: carBAMazepine 200 MG TABLET PO ×2 (08:27→17:48)
[2021-05-23] MEDS: ARIPiprazole 10 MG TABLET 30 MG PO (08:27)
[2021-05-23] MEDS: BENZTROPINE MESYLATE 0.5 MG TABLET PO ×2 (08:27→17:47)
[2021-05-23] MEDS: HALOPERIDOL 5 MG TABLET PO ×3 (08:27→17:48)
[2021-05-23] MEDS: ASPIRIN 81 MG ENTERIC TABLET PO (08:27)
[2021-05-23] MEDS: GABAPENTIN 400 MG CAPSULE PO ×3 (08:27→17:47)
[2021-05-23] MEDS: DOCUSATE SODIUM 100 MG CAPSULE PO (08:27)
[2021-05-23] MEDS: carvediloL 3.125 MG TABLET PO ×2 (08:28→17:48)
[2021-05-23] MEDS: DIVALPROEX SODIUM ER 250 MG TAB.24H PO (09:16)
[2021-05-23 10:05] LABS: Troponin I 0.114 ng/mL (0.000-0.034)
[2021-05-23 12:22] LABS: Troponin I 0.112 ng/mL (0.000-0.034)
--- NOTE | 2021-05-23 15:21 | PCCCNOTE ---
On 05/23/21, the student, [Catherine Baca], provided care and completed [facility] documentation on this patient. I have reviewed the student's documentation and agree with the findings.
[2021-05-23] MEDS: SERTRALINE HCL 25 MG TABLET PO (15:51)
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
[2021-05-23] MEDS: SIMVASTATIN 20 MG TABLET PO (20:30)
[2021-05-23] MEDS: DIVALPROEX SODIUM ER 500 MG TAB.24H PO (20:31)
[2021-05-23] MEDS: ACETAMINOPHEN 325 MG TABLET 650 MG PO (20:32)
[2021-05-23] MEDS: hydrALAZINE HCL 20 MG/ML VIAL 10 MG IV PUSH (23:57)
[2021-05-24] VITALS (13 sets, daily range): BP systolic 145–235; BP diastolic 74–124; PULSE 77–96; RESP 18–20; TEMP 36.4–37.1; O2SAT 94–99
[2021-05-24] MEDS: SODIUM CHLORIDE 0.9% IV 1,000 ML 90 ML IV CONT
[2021-05-24 05:58] LABS: Basophils Absolute Auto 0.1 K/mm3 (0.0-0.1); Basophils Percent Auto 1.4 % (0.2-1.2); Eosinophils Absolute Auto 0.2 K/mm3 (0-0.3); Eosinophils Percent Auto 5.4 % (0-4.4); Hematocrit 38.8 % (37.0-47.0); Hemoglobin 12.4 g/dL (12.0-15.0); Immature Granulocyte Absolute 0.01 K/mm3 (0.00-0.031); Immature Granulocyte Percent A 0.3 % (0-0.5); Lymphocytes Absolute Auto 1.59 K/mm3 (0.9-3.2); Lymphocytes Percent Auto 44.9 % (18.3-44.2); Mean Corpuscular Hemoglobin 31.2 pg (26-34); Mean Corpuscular Volume 97.5 fl (80-100); Mean Platelet Volume 10.5 fl (7.4-10.4); Monocytes Absolute Auto 0.5 K/mm3 (0.1-0.6); Monocytes Percent Auto 14.4 % (2.6-8.5); Neutrophils Absolute Auto 1.2 K/mm3 (1.3-6.7); Neutrophils Percent Auto 33.6 % (45.5-73.1); Platelet Count Result 194 k/mm3 (150-375); Red Blood Count 3.98 M/mm3 (4.2-5.4); Red Cell Distribution Width 12.6 % (11.5-14.5); White Blood Count 3.5 K/mm3 (4.5-10.0)
[2021-05-24] MEDS: hydrALAZINE HCL 20 MG/ML VIAL 10 MG IV PUSH (06:12)
[2021-05-24 06:17] LABS: Alanine Aminotransferase 9 U/L (4-35); Albumin Level 3.7 g/dL (3.5-5.1); Alkaline Phosphatase 86 U/L (38-126); Anion Gap 3 mmol/L (8-16); Aspartate Amino Transferase 22 U/L (14-36); Bilirubin,Total 0.3 mg/dL (0.2-1.3); Blood Urea Nitrogen 16 mg/dL (7-17); Calcium 8.5 mg/dL (8.4-10.2); Carbon Dioxide 32 mmol/L (22-30); Chloride 104 mmol/L (98-107); Estimated CRCL calculation 75 ml/min; Estimated Glomerular Filt Rate > 60; Glucose 92 mg/dL (65-110); Magnesium 1.9 mg/dL (1.6-2.3); Potassium 3.3 mmol/L (3.4-5.0); Sodium 139 mmol/L (137-145)
[2021-05-24] MEDS: POTASSIUM CHLORIDE 20 MEQ TABLET 40 MEQ PO (08:07)
[2021-05-24] MEDS: GABAPENTIN 400 MG CAPSULE PO ×3 (08:07→16:42)
[2021-05-24] MEDS: ENOXAPARIN 30 MG/0.3 ML SYRINGE SUB-Q (08:08)
[2021-05-24] MEDS: ARIPiprazole 10 MG TABLET 30 MG PO (08:08)
[2021-05-24] MEDS: SERTRALINE HCL 25 MG TABLET PO (08:08)
[2021-05-24] MEDS: PANTOPRAZOLE SOD SESQUIHYDRATE 20 MG TAB PO (08:08)
[2021-05-24] MEDS: DOCUSATE SODIUM 100 MG CAPSULE PO (08:08)
[2021-05-24] MEDS: carvediloL 3.125 MG TABLET PO ×2 (08:08→16:42)
[2021-05-24] MEDS: ASPIRIN 81 MG ENTERIC TABLET PO (08:09)
[2021-05-24] MEDS: HALOPERIDOL 5 MG TABLET PO ×3 (08:09→16:42)
[2021-05-24] MEDS: carBAMazepine 200 MG TABLET PO ×2 (08:10→16:42)
[2021-05-24] MEDS: DIVALPROEX SODIUM ER 250 MG TAB.24H PO (08:10)
[2021-05-24] MEDS: ACETAMINOPHEN 325 MG TABLET 650 MG PO (09:18)
[2021-05-24] MEDS: BENZTROPINE MESYLATE 0.5 MG TABLET PO ×2 (09:19→16:42)
[2021-05-24 10:56] LABS: Anion Gap 4 mmol/L (8-16); Blood Urea Nitrogen 16 mg/dL (7-17); Calcium 8.6 mg/dL (8.4-10.2); Carbon Dioxide 31 mmol/L (22-30); Chloride 103 mmol/L (98-107); Estimated CRCL calculation 73 ml/min; Estimated Glomerular Filt Rate > 60; Glucose 108 mg/dL (65-110); Potassium 3.7 mmol/L (3.4-5.0); Sodium 138 mmol/L (137-145)
--- NOTE | 2021-05-24 12:27 | PM.IMPN ---
Progress Note: A&P Assessment and Plan (1) Unresponsive episode: Code(s): R41.89 - Other symptoms and signs involving cognitive functions and awareness Status: Acute Assessment and Plan: -Patient was reportedly unresponsive for staff at her care facility prior to arrival, though she was alert and oriented to her baseline on EMS arrival. -Her blood pressures were soft however and wondering if that may have caused her decrease in mentation. - No focal findings were noted on exam in her brain CT was unremarkable. -run of v tach reported 05/23/21 was actually sinus tach with artifact (2) Hypertension: Code(s): I10 - Essential (primary) hypertension Status: Acute Assessment and Plan: -Blood pressures were soft on arrival but have responded nicely to IV fluid rehydration. -Today BP spiked and increased to 235/124. All of her HTN meds had been on hold due to the hypotension. These have been restarted. -will monitor closely (3) Hypotension: Code(s): I95.9 - Hypotension, unspecified Status: Acute Assessment and Plan: -Likely due to hypovolemia as she appeared quite dry on exam and blood pressures increased with IV fluid rehydration. -Her home HTN meds have been restarted as above (4) Acute kidney injury: Code(s): N17.9 - Acute kidney failure, unspecified Status: Acute Assessment and Plan: -Likely due to hypovolemia and hypoperfusion from hypotension. -Resolved with IV fluid rehydration alone. -Avoid nephrotoxic agents. (5) Abnormal computed tomography of abdomen and pelvis: Code(s): R93.5 - Abnormal findings on diagnostic imaging of other abdominal regions, including retroperitoneum Status: Acute Assessment and Plan: -CT shows moderately distended colon with air-fluid levels consistent with gastroenteritis and/or diarrhea. -She denies GI symptoms at this time and her abdominal exam was benign. -Monitor. (6) Schizophrenia: Qualifiers: Schizophrenia type: unspecified Qualified Code(s): F20.9 - Schizophrenia, unspecified Code(s): F20.9 - Schizophrenia, unspecified Status: Chronic Assessment and Plan: -Continue home medications. (7) V tach: Code(s): I47.2 - Ventricular tachycardia Status: Deleted Assessment and Plan: -noted on tele 05/23/21 but after being reviewed by cardiology they believe it to have been sinus tach with artifact -no further cardiac workup indicated (8) Elevated troponin: Code(s): R77.8 - Other specified abnormalities of plasma proteins Status: Acute Assessment and Plan: -trops elevated but flat -likely due to hypotension and renal insufficiency -no evidence of ACS -cardiology has signed off Subjective Date/time seen: 05/24/21 12:27 Interval history: 70-year-old female with coronary artery disease, congestive heart failure, hypertension, diabetes, schizophrenia, and depression, admitted for unresponsive episode witnessed at her care facility. Today patient is A/Ox3 and wants to go home. She has no complaints. Denies cp/sob/N/V/D/abd pain. No further syncopal or unresponsive episodes. Denies DE or dizziness. Review of Systems Review of Systems: All systems reviewed & are unremarkable except as noted in HPI and below Exam Narrative: General: Well-developed elderly female sitting up in chair at bedside. Weight: 89.5 kg. BMI: 30.9. HEENT: PERRL. Sclerae anicteric. mucous membranes moist. Poor dental hygiene with multiple missing teeth. Neck: Supple. Respiratory: Respirations are even and nonlabored. Lungs are clear to auscultation bilaterally. Cardiovascular: Regular rate and rhythm with S1-S2. Gastrointestinal: Abdomen is soft, obese, nontender, and nondistended with positive bowel sounds. Skin: Warm and dry. No rash or lesions on limited exam. Extremities: No cya
[2021-05-24] MEDS: hydrALAZINE HCL 50 MG TABLET 100 MG PO ×2 (14:12→16:42)
[2021-05-24] MEDS: FUROSEMIDE 40 MG TABLET PO (14:12)
[2021-05-24] MEDS: NIFEdipine 30 MG TAB.ER.24 60 MG PO (14:12)
[2021-05-24] MEDS: LOSARTAN POTASSIUM 100 MG TABLET PO (14:12)
[2021-05-24] MEDS: DIVALPROEX SODIUM ER 500 MG TAB.24H PO (21:32)
[2021-05-24] MEDS: SIMVASTATIN 20 MG TABLET PO (21:32)
[2021-05-25 06:00] VITALS: BP 174/81; PULSE 74; RESP 18; TEMP 37.2; O2SAT 97
[2021-05-25 06:45] LABS: Eosinophils Absolute Auto 0.2 K/mm3 (0-0.3); Eosinophils Percent Auto 4.4 % (0-4.4); Hematocrit 37.3 % (37.0-47.0); Hemoglobin 12.4 g/dL (12.0-15.0); Lymphocytes Absolute Auto 1.85 K/mm3 (0.9-3.2); Lymphocytes Percent Auto 47.9 % (18.3-44.2); Mean Corpuscular HGB Conc 33.2 g/dl (32-36); Mean Corpuscular Hemoglobin 31.7 pg (26-34); Mean Corpuscular Volume 95.4 fl (80-100); Mean Platelet Volume 10.9 fl (7.4-10.4); Monocytes Absolute Auto 0.5 K/mm3 (0.1-0.6); Monocytes Percent Auto 13.7 % (2.6-8.5); Neutrophils Absolute Auto 1.3 K/mm3 (1.3-6.7); Platelet Count Result 204 k/mm3 (150-375); Red Blood Count 3.91 M/mm3 (4.2-5.4); Red Cell Distribution Width 12.8 % (11.5-14.5); White Blood Count 3.9 K/mm3 (4.5-10.0)
[2021-05-25 07:03] LABS: Alanine Aminotransferase 7 U/L (4-35); Albumin Level 3.7 g/dL (3.5-5.1); Alkaline Phosphatase 84 U/L (38-126); Anion Gap 6 mmol/L (8-16); Aspartate Amino Transferase 18 U/L (14-36); Bilirubin,Total 0.3 mg/dL (0.2-1.3); Blood Urea Nitrogen 18 mg/dL (7-17); Calcium 8.7 mg/dL (8.4-10.2); Carbon Dioxide 31 mmol/L (22-30); Chloride 104 mmol/L (98-107); Estimated CRCL calculation 58 ml/min; Estimated Glomerular Filt Rate > 60; Glucose 93 mg/dL (65-110); Potassium 3.4 mmol/L (3.4-5.0); Sodium 141 mmol/L (137-145)
[2021-05-25 08:26] VITALS: PULSE 88
[2021-05-25] MEDS: carvediloL 3.125 MG TABLET PO (08:26)
[2021-05-25] MEDS: LOSARTAN POTASSIUM 100 MG TABLET PO (08:27)
[2021-05-25] MEDS: DIVALPROEX SODIUM ER 250 MG TAB.24H PO (08:27)
[2021-05-25] MEDS: DOCUSATE SODIUM 100 MG CAPSULE PO (08:28)
[2021-05-25] MEDS: NIFEdipine 10 MG CAPSULE 30 MG PO (08:28)
[2021-05-25] MEDS: NIFEdipine 30 MG TAB.ER.24 60 MG PO (08:28)
[2021-05-25] MEDS: PANTOPRAZOLE SOD SESQUIHYDRATE 20 MG TAB PO (08:29)
[2021-05-25] MEDS: hydrALAZINE HCL 50 MG TABLET 100 MG PO ×2 (08:29→12:10)
[2021-05-25] MEDS: SERTRALINE HCL 25 MG TABLET PO (08:29)
[2021-05-25] MEDS: POTASSIUM CHLORIDE 10 MEQ TABLET.ER PO (08:29)
[2021-05-25] MEDS: carBAMazepine 200 MG TABLET PO (08:29)
[2021-05-25] MEDS: HALOPERIDOL 5 MG TABLET PO ×2 (08:29→12:10)
[2021-05-25] MEDS: BENZTROPINE MESYLATE 0.5 MG TABLET PO (08:30)
[2021-05-25] MEDS: ASPIRIN 81 MG ENTERIC TABLET PO (08:30)
[2021-05-25] MEDS: ARIPiprazole 10 MG TABLET 30 MG PO (08:30)
[2021-05-25] MEDS: GABAPENTIN 400 MG CAPSULE PO ×2 (08:30→12:10)
[2021-05-25] MEDS: FUROSEMIDE 40 MG TABLET PO (08:30)
[2021-05-25] MEDS: ENOXAPARIN 30 MG/0.3 ML SYRINGE SUB-Q (08:31)
--- NOTE | 2021-05-25 10:52 | PM.DS ---
DS: Admitting Diagnosis Discharge Date 05/25/21 Admitting Diagnosis hypotension DS: Discharge Diagnosis Discharge Diagnosis (1) Unresponsive episode: Code(s): R41.89 - Other symptoms and signs involving cognitive functions and awareness Status: Acute Assessment and Plan: -Patient was reportedly unresponsive for staff at her care facility prior to arrival, though she was alert and oriented to her baseline on EMS arrival. -Her blood pressures were soft however and wondering if that may have caused her decrease in mentation. -No focal findings were noted on exam in her brain CT was unremarkable. -run of v tach reported 05/23/21 was actually sinus tach with artifact -no further episodes for duration of her admission (2) Hypertension: Code(s): I10 - Essential (primary) hypertension Status: Acute Assessment and Plan: -Blood pressures were soft on arrival but responded nicely to IV fluid rehydration. -Due to IVF and holding her BP meds, yesterday her BP spiked and increased to 235/124. She remains asymptomatic with this. -All of her HTN meds had been on hold due to the hypotension. These have been restarted and she is back down to 154/90 -stable for discharge, continue home medications and pcp follow up (3) Hypotension: Code(s): I95.9 - Hypotension, unspecified Status: Acute Assessment and Plan: -Likely due to hypovolemia as she appeared quite dry on exam and blood pressures increased with IV fluid rehydration. -Her home HTN meds have been restarted as above (4) Acute kidney injury: Code(s): N17.9 - Acute kidney failure, unspecified Status: Acute Assessment and Plan: -Likely due to hypovolemia and hypoperfusion from hypotension. -Resolved with IV fluid rehydration alone. -Avoid nephrotoxic agents. (5) Abnormal computed tomography of abdomen and pelvis: Code(s): R93.5 - Abnormal findings on diagnostic imaging of other abdominal regions, including retroperitoneum Status: Acute Assessment and Plan: -CT shows moderately distended colon with air-fluid levels consistent with gastroenteritis and/or diarrhea. -She denies GI symptoms at this time and her abdominal exam was benign. (6) Schizophrenia: Qualifiers: Schizophrenia type: unspecified Qualified Code(s): F20.9 - Schizophrenia, unspecified Code(s): F20.9 - Schizophrenia, unspecified Status: Chronic Assessment and Plan: -Continued home medications. -stable (7) V tach: Code(s): I47.2 - Ventricular tachycardia Status: Deleted Assessment and Plan: -noted on tele 05/23/21 but after being reviewed by cardiology they believe it to have been sinus tach with artifact -no further cardiac workup indicated (8) Elevated troponin: Code(s): R77.8 - Other specified abnormalities of plasma proteins Status: Acute Assessment and Plan: -trops elevated but flat -likely due to hypotension and renal insufficiency -no evidence of ACS -cardiology has signed off DS: Summary Hospital Course Reason for hospitalization: 70-year-old female with coronary artery disease, congestive heart failure, hypertension, diabetes, schizophrenia, and depression, admitted for unresponsive episode witnessed at her care facility and hypotension. Please see HPI for further details. Hospital Course: Please see above for details of hospital course. Status at Discharge Cognitive/behavioral status at discharge: stable Functional status at discharge: independent ambulation Time Spent with Patient Time attestation: Total time spent providing and/or coordinating discharge services: 35 Time spent: Greater than 30 minutes Exam Narrative: General: Well-developed elderly female sitting up in chair at bedside. Weight: 89.5 kg. BMI: 30.9. HEENT: PERRL. Sclerae anicteric. mucous membranes moist.
[2021-05-25 11:28] VITALS: BP 154/90
[2021-05-25 13:03] LABS: EDCOVIDSCREEN Negative (Negative)
--- NOTE | 2021-05-28 07:33 | PC.NURSE ---
Blood cx is negative
== END 2021-05-25 14:50 ==
LOC: ANHED 10:36 → ANH3MEDSUR 13:44
PROVIDERS: Internal Medicine; Physician Assistant; Admitting Provider Internal Medicine; Emergency Provider Emergency Medicine; Visit Provider Hospitalist
DX: R41.89 Other symptoms and signs involving cognitive functions and awareness (principal); I49.9 Cardiac arrhythmia, unspecified; R77.8 Other specified abnormalities of plasma proteins; R09.02 Hypoxemia; R93.5 Abnormal findings on diagnostic imaging of other abdominal regions, including retroperitoneum; N17.9 Acute kidney failure, unspecified; I95.9 Hypotension, unspecified; N28.9 Disorder of kidney and ureter, unspecified; E86.0 Dehydration; R53.1 Weakness; M79.605 Pain in left leg; M79.604 Pain in right leg; M79.89 Other specified soft tissue disorders; J44.9 Chronic obstructive pulmonary disease, unspecified; I11.0 Hypertensive heart disease with heart failure; I50.9 Heart failure, unspecified; E11.9 Type 2 diabetes mellitus without complications; I25.10 Atherosclerotic heart disease of native coronary artery without angina pectoris; F32.9 Major depressive disorder, single episode, unspecified; E55.9 Vitamin D deficiency, unspecified; K21.9 Gastro-esophageal reflux disease without esophagitis; F20.9 Schizophrenia, unspecified; Z86.718 Personal history of other venous thrombosis and embolism; Z86.73 Personal history of transient ischemic attack (TIA), and cerebral infarction without residual deficits; Z79.82 Long term (current) use of aspirin; Z87.891 Personal history of nicotine dependence; Z79.51 Long term (current) use of inhaled steroids; Z20.822 Contact with and (suspected) exposure to COVID-19
CPT/HCPCS: 36415; 70450; 71045; 74176; 80048; 80053; 80164; 81001; 83605; 83690; 83735; 84443; 84484; 85025; 85610; 85730; 87040; 87426; 93005; 93970; 96360; 96361; 96372; 96374; 99285; A9270; C9803; G0378; G0379; J0360; J1650; J7030; U0003; U0005

== ENCOUNTER 2021-06-10 09:07 | Emergency (ER) | payer OTHER, SELFPAY ==
--- NOTE | ~2021-06-10 | XR_ITS ---
EXAMINATION: XR chest 2V DATE: 06/10/2021 09:46 INDICATION: Midsternal chest pain TECHNIQUE: frontal and lateral views of the chest were obtained. COMPARISON: Chest radiograph dated 05/22/2021 FINDINGS: The lungs remain clear with no focal airspace opacities, pulmonary edema, pleural effusion or pneumot horax. The cardiomediastinal silhouette is normal. Mild thoracic spondylosis. IMPRESSION: 1. No acute cardiopulmonary disease. Reviewed, dictated and finalized at location B.
[2021-06-10 09:07] VITALS: BP 112/79; PULSE 68; RESP 16; TEMP 36.1; O2SAT 96
[2021-06-10 09:16] VITALS: PULSE 66
--- NOTE | 2021-06-10 09:17 | ECG_ITS ---
Measurements Intervals [place] Rate: 52 P: 33 NH: 191 QRS: 22 QRSD: 86 T: 212 QT: 473 QTc: 443 Interpretive Statements SINUS BRADYCARDIA DIFFUSE NONSPECIFIC T-WAVE ABNORMALITY COMPARED TO ECG 05/22/2021 10:13:34 SINUS BRADYCARDIA NOW PRESENT Electronically Signed On 06-10-2021 16:24:40 CDT by Elvis Serna M.D.
[2021-06-10 09:37] LABS: Basophils Percent Auto 0.7 % (0.2-1.2); Eosinophils Absolute Auto 0.1 K/mm3 (0-0.3); Eosinophils Percent Auto 2.1 % (0-4.4); Hematocrit 33.7 % (37.0-47.0); Hemoglobin 10.9 g/dL (12.0-15.0); Immature Granulocyte Absolute 0.01 K/mm3 (0.00-0.031); Immature Granulocyte Percent A 0.2 % (0-0.5); Lymphocytes Absolute Auto 1.23 K/mm3 (0.9-3.2); Lymphocytes Percent Auto 28.2 % (18.3-44.2); Mean Corpuscular HGB Conc 32.3 g/dl (32-36); Mean Corpuscular Hemoglobin 31.5 pg (26-34); Mean Corpuscular Volume 97.4 fl (80-100); Mean Platelet Volume 10.2 fl (7.4-10.4); Monocytes Absolute Auto 0.5 K/mm3 (0.1-0.6); Monocytes Percent Auto 11.2 % (2.6-8.5); Neutrophils Absolute Auto 2.5 K/mm3 (1.3-6.7); Neutrophils Percent Auto 57.6 % (45.5-73.1); Platelet Count Result 191 k/mm3 (150-375); Red Blood Count 3.46 M/mm3 (4.2-5.4); Red Cell Distribution Width 13.1 % (11.5-14.5); White Blood Count 4.4 K/mm3 (4.5-10.0)
[2021-06-10 09:47] LABS: INR 1.1; Prothrombin Time 14.1 Seconds (11.1-14.7)
[2021-06-10 09:48] LABS: Partial Thromboplastin Time 27.9 SECONDS (22.3-36.8)
[2021-06-10 09:50] LABS: Alanine Aminotransferase 8 U/L (4-35); Alkaline Phosphatase 72 U/L (38-126); Anion Gap 8 mmol/L (8-16); Aspartate Amino Transferase 19 U/L (14-36); Bilirubin,Total 0.3 mg/dL (0.2-1.3); Blood Urea Nitrogen 13 mg/dL (7-17); Calcium 8.9 mg/dL (8.4-10.2); Carbon Dioxide 33 mmol/L (22-30); Chloride 99 mmol/L (98-107); Estimated CRCL calculation 82 ml/min; Estimated Glomerular Filt Rate > 60; Glucose 110 mg/dL (65-110); Lipase 56 U/L (23-300); Sodium 140 mmol/L (137-145)
[2021-06-10 10:00] LABS: Troponin I 0.023 ng/mL (0.000-0.034)
--- NOTE | 2021-06-10 10:11 | ED.CHESTPAIN ---
HPI - Chest Pain General Chief Complaint: Chest Pain Stated Complaint: chest pain, SOB Time Seen by Provider: 06/10/21 09:57 Source: patient and EMS Mode of arrival: EMS Limitations: no limitations History of Present Illness HPI narrative: The patient is a 70-year-old female with a past medical history of CVA, coronary artery disease, congestive heart failure, hypertension, diabetes, schizophrenia, and depression, with recent hospitalization, presenting to this emergency department for evaluation of chest pain and shortness of breath. Patient reports chest pain that begins on the right side of her chest and radiates to the right shoulder that began approximately 2 days ago. Pain is dull, aching in nature. Denies radiation of pain to the jaw, neck, abdomen. Denies ripping or tearing sensation to the flank. Patient reports associated shortness of breath and cough with a small amount of sputum production. She denies fever, chills, nausea or vomiting. Denies associated diaphoresis. Patient is not ambulatory, denies any specific leg swelling or calf pain. No redness that she has noticed. Patient alerted the nursing staff at the care facility and was transferred here for evaluation. Apparently, patient was given a nitroglycerin in route which caused her blood pressure to lower, and did not change her pain. Related Data Home Medications Medication Instructions Recorded Confirmed aripiprazole 30 mg PO DAILY 01/24/20 05/22/21 benztropine 0.5 mg PO BID 01/24/20 05/22/21 carbamazepine 200 mg PO BID 01/24/20 05/22/21 divalproex 250 mg PO DAILY 01/24/20 05/22/21 docusate sodium 100 mg PO DAILY 01/24/20 05/22/21 ergocalciferol (vitamin D2) 50,000 mcg PO MONTHLY 01/24/20 05/22/21 hydralazine 100 mg PO TID 01/24/20 05/22/21 losartan 100 mg PO DAILY 01/24/20 05/22/21 potassium chloride [Klor-Con 10] 10 meq PO DAILY 01/24/20 05/22/21 simvastatin 20 mg PO HS 01/24/20 05/22/21 Milk of Magnesia 30 ml PO HS PRN 01/25/20 05/22/21 acetaminophen 650 mg PO Q4H PRN 01/25/20 05/22/21 aspirin 81 mg PO DAILY 01/25/20 05/22/21 divalproex 500 mg PO HS 01/25/20 05/22/21 furosemide 40 mg PO DAILY 01/25/20 05/22/21 gabapentin 400 mg PO TID 01/25/20 05/22/21 haloperidol 5 mg PO TID 01/25/20 05/22/21 ibuprofen 800 mg PO Q6H PRN 01/25/20 05/22/21 ipratropium-albuterol 3 ml INHALATION QID PRN 01/25/20 05/22/21 omeprazole 20 mg PO DAILY 01/25/20 05/22/21 polyethylene glycol 1 ea MISCELLANEOUS DAILY 01/25/20 05/22/21 sertraline 25 mg PO DAILY 01/25/20 05/22/21 sertraline 100 mg PO DAILY 01/25/20 05/22/21 trazodone 50 mg PO HS PRN 01/25/20 05/22/21 carvedilol 3.125 mg PO BID 05/22/21 05/22/21 nifedipine 60 mg PO DAILY 05/22/21 05/22/21 pantoprazole 20 mg PO DAILY 05/22/21 05/22/21 Allergies Allergy/AdvReac Type Severity Reaction Status Date / Time Penicillins Allergy Unknown Hives / Verified 06/10/21 09:46 Red Face Review of Systems Review of Systems: CONSTITUTIONAL: Denies fever, chills, or sweats. EYES: Denies visual changes, redness, or discharge. ENT: Denies rhinorrhea, congestion, sore throat, or otalgia. CARDIOVASCULAR: Reports chest pain, denies palpitations or edema RESPIRATORY: Reports cough and shortness of breath GASTROINTESTINAL: Denies abdominal pain, nausea, vomiting, or diarrhea. GENITOURINARY: Denies dysuria or hematuria. SKIN: Denies rash or itching. MUSCULOSKELETAL: Denies back pain, joint pain, or myalgia. NEUROLOGIC: Denies headache, numbness, or weakness. [facility] Past Medical History Medical History Asthma Cerebrovascular accident Chronic obstructive pulmonary disease Congestive heart failure Deep venous thrombosis Gastroesophageal reflux disease Hypertension Migraine headache Schizophrenia Type 2 diabetes mellitus Diet-controlled. Vitamin D deficiency Surgical History Surgical History History of arthroscopy of right kn
[2021-06-10 10:16] VITALS: BP 127/70; PULSE 52; RESP 17; O2SAT 97
[2021-06-10] MEDS: POTASSIUM CHLORIDE 20 MEQ PACKET (FOR LIQUID) 40 MEQ PO (10:27)
[2021-06-10 10:33] LABS: D Dimer 0.39 ug/mL (<0.48)
[2021-06-10 11:01] VITALS: BP 154/88; PULSE 54; RESP 19; O2SAT 97
[2021-06-10 11:16] VITALS: BP 166/88; PULSE 55; RESP 21; O2SAT 97
[2021-06-10 11:31] VITALS: BP 157/90; PULSE 58; RESP 21; O2SAT 98
--- NOTE | 2021-06-10 11:48 | PC.NURSE ---
Pt angry that she is being discharged. states Get Dr. Washington, he says I need to be admitted Told pt that we do not have a Dr by that name. She states you have Felix on your shirt! there has to be a Dr. Washington!, I had a heart attack Thursday, Thursday and Thursday! I need to be admitted Pt continuing to yell at this RN.
== END 2021-06-10 12:26 ==
LOC: ANHED 11:17
PROVIDERS: Emergency Provider Emergency Medicine
DX: R07.89 Other chest pain (principal); E87.6 Hypokalemia; I25.10 Atherosclerotic heart disease of native coronary artery without angina pectoris; I50.9 Heart failure, unspecified; I11.0 Hypertensive heart disease with heart failure; E11.9 Type 2 diabetes mellitus without complications; E55.9 Vitamin D deficiency, unspecified; J45.909 Unspecified asthma, uncomplicated; K21.9 Gastro-esophageal reflux disease without esophagitis; F32.A Depression, unspecified; F20.9 Schizophrenia, unspecified; Z86.73 Personal history of transient ischemic attack (TIA), and cerebral infarction without residual deficits; Z86.718 Personal history of other venous thrombosis and embolism; Z79.82 Long term (current) use of aspirin; Z96.642 Presence of left artificial hip joint; Z87.891 Personal history of nicotine dependence; R00.1 Bradycardia, unspecified
CPT/HCPCS: 36415; 71046; 80053; 83690; 84484; 85025; 85380; 85610; 85730; 93005; 99284; A9270

== ENCOUNTER 2021-07-01 11:17 | Emergency (ER) | payer OTHER, SELFPAY ==
[2021-07-01] VITALS (23 sets, daily range): BP systolic 88–170; BP diastolic 59–101; PULSE 67–81; RESP 13–24; TEMP 36.8; O2SAT 96–100
--- NOTE | ~2021-07-01 | CT_ITS ---
EXAMINATION: CT brain wo con INDICATION: Transient alteration of awareness COMPARISON: 05/22/2021 TECHNIQUE: Standard unenhanced head CT. The dose-length product (DLP) was 605.33 mGy-cm. The mA was a djusted according to patient size. Iterative reconstruction technique was employed. FINDINGS: There is no intracranial hemorrhage, acute infarction, or abnormal mass lesion. The ventric les are normal. There is no abnormal mass effect or midline shift. The craig-white matter differentiat ion is normal. The basal cisterns are patent. Intracranial calcified cerebral atherosclerosis is note d. The orbits are normal. The paranasal sinuses, mastoids and calvarium are normal. IMPRESSION: 1. No acute intracranial abnormality. Reviewed, dictated and finalized at location A.
--- NOTE | 2021-07-01 11:27 | ECG_ITS ---
Measurements Intervals [place] Rate: 68 P: 44 DC: 175 QRS: 15 QRSD: 75 T: 157 QT: 453 QTc: 483 Interpretive Statements SINUS RHYTHM ST-T WAVE ABNORMALITY IN HIGH LATERAL LEADS- CONSIDER ISCHEMIA BASELINE ARTIFACT- V3, V6 ABNORMAL ECG Electronically Signed On 07-01-2021 15:23:13 CDT by Willy Crawford D.O.
[2021-07-01 11:49] LABS: Basophils Absolute Auto 0.1 K/mm3 (0.0-0.1); Basophils Percent Auto 1.1 % (0.2-1.2); Eosinophils Absolute Auto 0.1 K/mm3 (0-0.3); Hemoglobin 13.3 g/dL (12.0-15.0); Immature Granulocyte Absolute 0.01 K/mm3 (0.00-0.031); Immature Granulocyte Percent A 0.2 % (0-0.5); Lymphocytes Absolute Auto 1.63 K/mm3 (0.9-3.2); Lymphocytes Percent Auto 36.7 % (18.3-44.2); Mean Corpuscular HGB Conc 32.4 g/dl (32-36); Mean Corpuscular Hemoglobin 31.3 pg (26-34); Mean Corpuscular Volume 96.5 fl (80-100); Mean Platelet Volume 10.1 fl (7.4-10.4); Monocytes Absolute Auto 0.4 K/mm3 (0.1-0.6); Neutrophils Absolute Auto 2.3 K/mm3 (1.3-6.7); Platelet Count Result 310 k/mm3 (150-375); Red Blood Count 4.25 M/mm3 (4.2-5.4); Red Cell Distribution Width 12.9 % (11.5-14.5); White Blood Count 4.4 K/mm3 (4.5-10.0)
[2021-07-01 12:00] LABS: Alanine Aminotransferase 18 U/L (6-35); Albumin Level 4.5 g/dL (3.5-5.1); Alkaline Phosphatase 107 U/L (38-126); Anion Gap 10 mmol/L (8-16); Aspartate Amino Transferase 30 U/L (14-36); Bilirubin,Total 0.4 mg/dL (0.2-1.3); Blood Urea Nitrogen 20 mg/dL (7-17); Calcium 9.5 mg/dL (8.4-10.2); Carbon Dioxide 29 mmol/L (22-30); Chloride 100 mmol/L (98-107); Estimated Glomerular Filt Rate 60; Glucose 139 mg/dL (65-110); Potassium 3.7 mmol/L (3.4-5.0); Sodium 139 mmol/L (137-145)
--- NOTE | 2021-07-01 13:05 | PC.NURSE ---
CT REPORTS UNABLE TO SCAN PT BECAUSE SHE HITTING STAFF AND YELLING CALLING STAFF MOTHER PHAM PERAZA NOTIFIED
--- NOTE | 2021-07-01 13:45 | PC.NURSE ---
PT REFUSING LAB DRAWS, EKG OR ANY OTHER TXs. PT HITTING AT STAFF AND YELLING CUSS WORDS.
[2021-07-01] MEDS: HALOPERIDOL LACTATE 5 MG/ML VIAL IV PUSH (14:02)
[2021-07-01] MEDS: SODIUM CHLORIDE 0.9% IV 1,000 ML 999 ML IV CONT (14:02)
[2021-07-01 14:21] LABS: Appearance Urine Clear (Clear); Bilirubin Urine Negative (Negative); Color Urine Yellow (Yellow); Glucose Urine UA Trace mg/dL (Negative); Ketones Urine Negative (Negative); Leukocyte Esterase Ur Negative LEU/UL (Negative); Nitrate Urine Negative (Negative); Protein Urine 2+ mg/dL (Negative); Urobilinogen Urine 0.2 mg/dL (<2.0); pH Urine 7.5 (5.0-9.0)
[2021-07-01 14:27] LABS: Add Urine Microscopic? YES; Blood Urine Trace-Intact (Negative)
[2021-07-01 14:30] LABS: Bacteria Urine Trace /hpf; Mucus Urine Rare /lpf; Squamous Epithelial Cell Urine Occasional /hpf (Few)
[2021-07-01 14:45] LABS: Amphetamine Screen Urine Negative (Negative); Barbiturate Screen Urine Negative (Negative); Benzodiazepines Screen Urine Negative (Negative); Cannabinoid Screen Urine Negative (Negative); Cocaine Screen Urine Negative (Negative); Methadone Screen Urine Negative (Negative); Opiate Screen Urine Negative (Negative); Phencyclidine Screen Urine Negative (Negative)
--- NOTE | 2021-07-01 15:27 | ED.SYNCOPE ---
HPI - Syncope General Chief Complaint: Syncope Stated Complaint: altered LOC Time Seen by Provider: 07/01/21 12:08 Source: patient, RN notes reviewed, old records reviewed, corporate intern and other History of Present Illness HPI narrative: Patient presents with a syncopal event. Per reports patient was bathing herself in the sink when she passed out and fell backwards she was unresponsive. Nursing feeling noted low blood pressure they called EMS and transfer the patient to the ER for further evaluation. Patient was alert and responsive at the time of ER and reported yes to all review of systems questions Related Data Home Medications Medication Instructions Recorded Confirmed aripiprazole 30 mg PO DAILY 01/24/20 05/22/21 benztropine 0.5 mg PO BID 01/24/20 05/22/21 carbamazepine 200 mg PO BID 01/24/20 05/22/21 divalproex 250 mg PO DAILY 01/24/20 05/22/21 docusate sodium 100 mg PO DAILY 01/24/20 05/22/21 ergocalciferol (vitamin D2) 50,000 mcg PO MONTHLY 01/24/20 05/22/21 hydralazine 100 mg PO TID 01/24/20 05/22/21 losartan 100 mg PO DAILY 01/24/20 05/22/21 potassium chloride [Klor-Con 10] 10 meq PO DAILY 01/24/20 05/22/21 simvastatin 20 mg PO HS 01/24/20 05/22/21 Milk of Magnesia 30 ml PO HS PRN 01/25/20 05/22/21 acetaminophen 650 mg PO Q4H PRN 01/25/20 05/22/21 aspirin 81 mg PO DAILY 01/25/20 05/22/21 divalproex 500 mg PO HS 01/25/20 05/22/21 furosemide 40 mg PO DAILY 01/25/20 05/22/21 gabapentin 400 mg PO TID 01/25/20 05/22/21 haloperidol 5 mg PO TID 01/25/20 05/22/21 ibuprofen 800 mg PO Q6H PRN 01/25/20 05/22/21 ipratropium-albuterol 3 ml INHALATION QID PRN 01/25/20 05/22/21 omeprazole 20 mg PO DAILY 01/25/20 05/22/21 polyethylene glycol 1 ea MISCELLANEOUS DAILY 01/25/20 05/22/21 sertraline 25 mg PO DAILY 01/25/20 05/22/21 sertraline 100 mg PO DAILY 01/25/20 05/22/21 trazodone 50 mg PO HS PRN 01/25/20 05/22/21 carvedilol 3.125 mg PO BID 05/22/21 05/22/21 nifedipine 60 mg PO DAILY 05/22/21 05/22/21 pantoprazole 20 mg PO DAILY 05/22/21 05/22/21 Allergies Allergy/AdvReac Type Severity Reaction Status Date / Time Penicillins Allergy Unknown Hives / Verified 06/10/21 09:46 Red Face Review of Systems Review of Systems: ROS unobtainable: Yes other (Patient answered yes to all review of systems questions) PMFSH Past Medical History Medical History Asthma Cerebrovascular accident Chronic obstructive pulmonary disease Congestive heart failure Deep venous thrombosis Gastroesophageal reflux disease Hypertension Migraine headache Schizophrenia Type 2 diabetes mellitus Diet-controlled. Vitamin D deficiency Surgical History Surgical History History of arthroscopy of right knee History of section, classical History of cholecystectomy History of left hip replacement History of sinus surgery Family History Family History Mother Cancer Heart disease Cerebrovascular accident Social History Social History Social History: Lives at: [facility]. Likes to color and do crafts. Surrogate decision maker: Jose Hunt, sibling. Code status: Full code Smoking status: Former smoker Tobacco type: cigarettes Second hand tobacco smoke exposure: No Alcohol intake: never Substance use: never Additional living arrangements comments: Resident at [facility]. Additional occupation/education comments: Disabled. Spiritual care concerns: No Exam Narrative: GENERAL: Well-appearing, well-nourished, and in no acute distress. HEAD: Normocephalic, atraumatic. EYES: PERRLA and EOMI. ENT: Nares clear, no rhinorrhea or epistaxis. Mucous membranes moist. NECK: Supple. No masses. No JVD CHEST: Clear to auscultation. No respiratory distress. No wheezes
== END 2021-07-01 16:20 ==
PROVIDERS: Emergency Provider Emergency Medicine
DX: R55 Syncope and collapse (principal); J44.9 Chronic obstructive pulmonary disease, unspecified; I50.9 Heart failure, unspecified; I11.0 Hypertensive heart disease with heart failure; E11.9 Type 2 diabetes mellitus without complications; E55.9 Vitamin D deficiency, unspecified; F20.9 Schizophrenia, unspecified; Z79.82 Long term (current) use of aspirin; Z86.718 Personal history of other venous thrombosis and embolism; Z86.73 Personal history of transient ischemic attack (TIA), and cerebral infarction without residual deficits; Z87.891 Personal history of nicotine dependence; R94.31 Abnormal electrocardiogram [ECG] [EKG]
CPT/HCPCS: 36415; 70450; 80053; 80307; 81001; 85025; 87086; 93005; 96361; 96374; 99284; J1630; J7030

== ENCOUNTER 2021-09-04 08:38 | Outpatient (CLI) | payer OTHER, SELFPAY ==
--- NOTE | ~2021-09-04 | MM_ITS ---
EXAMINATION: MM screening vibha BI w asim HISTORY: Screening TECHNIQUE: Craniocaudal and mediolateral oblique 3-D tomosynthesis images were obtained and synthetic 2-D images were generated. CAD analysis was submitted and interpreted. COMPARISON: 07/12/2020 BREAST PARENCHYMAL COMPOSITION: Breast composed of scattered areas of fibroglandular density FINDINGS: There is possible new area of architectural distortion/asymmetry in the outer aspect of the right breast on CC view. The left breast is stable without evidence for malignancy. IMPRESSION: 1. Possible new area of architectural distortion/asymmetry outer aspect of the right breast on CC vie w. 2. Additional mammographic views and possible breast ultrasound are recommended. BI-RADS Category 0: Incomplete: Needs additional imaging evaluation. Reviewed, dictated and finalized at location L. IMPRESSION: 1. Possible new area of architectural distortion/asymmetry outer aspect of the right breast on CC view. 2. Additional mammographic views and possible breast ultrasound are recommended . BI-RADS Category 0: Incomplete: Needs additional imaging evaluation.
== END 2021-09-04 08:39 | disposition home or self-care (01) ==
LOC: ANHIMG 08:46
DX: Z12.31 Encounter for screening mammogram for malignant neoplasm of breast (principal); R92.8 Other abnormal and inconclusive findings on diagnostic imaging of breast
CPT/HCPCS: 77063; 77067

== ENCOUNTER 2021-09-10 10:58 | Inpatient (IN) | payer OTHER, SELFPAY ==
[2021-09-10] VITALS (39 sets, daily range): BP systolic 144–206; BP diastolic 74–88; PULSE 54–68; RESP 15–24; TEMP 36.3–36.6; O2SAT 99–100; BMI 35.6
--- NOTE | ~2021-09-10 | XR_ITS ---
EXAMINATION: XR shoulder RT min 2V INDICATION: Right shoulder pain TECHNIQUE: Four views of the right shoulder are submitted. COMPARISON: None FINDINGS: Normal alignment. No fracture. There is mild osteoarthritis of the acromioclavicular and gl enohumeral joints. Soft tissues are unremarkable. There are patchy opacities of the visualized right hemithorax. IMPRESSION: 1. No acute osseous abnormality. 2. Patchy opacities of the right lung, possibly infectious or inflammatory. Reviewed, dictated and finalized at location B.
--- NOTE | ~2021-09-10 | XR_ITS ---
XR chest 2V 09/10/2021 12:20 Indication: Possible pneumonia Procedure: 2 view chest Comparison: Comparison to multiple prior studies sequentially, with oldest reviewed study dated 07/2021. Findings: There is bilateral upper lobe airspace disease. There are prominent bilateral katlin, suspici ous for lymphadenopathy. No pleural effusion or pneumothorax. No acute osseous abnormality. No acute osseous abnormality. Impression: 1: Bilateral upper lobe airspace disease, suspicious for pneumonia. 2: Bilateral hilar prominence, suspicious for lymphadenopathy. Reviewed, dictated and finalized at location A. Impression: 1: Bilateral upper lobe airspace disease, suspicious for pneumonia. 2: Bilateral hilar prominence, suspicious for lymphadenopathy.
--- NOTE | ~2021-09-10 | XR_ITS ---
XR chest 2V 09/11/2021 11:20 Indication: Shortness of breath Procedure: AP and lateral views of the chest Comparison: Comparison to multiple prior studies sequentially, with oldest reviewed study dated 09/2019. Findings: Cardiomegaly. Pulmonary vascular congestion. No pleural effusion or pneumothorax. No acute osseous abnormality. There are calcified mediastinal lymph nodes, consistent with chronic granulomato us disease. Impression: 1: Cardiomegaly with pulmonary vascular congestion. Reviewed, dictated and finalized at location L. Impression: 1: Cardiomegaly with pulmonary vascular congestion.
--- NOTE | ~2021-09-10 | CT_ITS ---
EXAMINATION: CTA chest PE protocol DATE: 09/11/2021 10:52 INDICATION: Shortness of breath. Elevated d-dimer. TECHNIQUE: Computed tomography angiography (CTA) of the chest was performed with 100 mL Omnipaque-350 intravenous contrast timed to evaluate the pulmonary arteries. Coronal maximum intensity projection 3D-reconstructions were created by the technologist. Automated exposure control and iterative reconst ruction technique were employed. Exam dose: 368.73 mGy-cm total exam DLP. COMPARISON: 09/10/2021 AP and lateral chest FINDINGS: There is diagnostic contrast enhancement of the pulmonary arteries and no evidence of pulmo nary embolism. No thoracic aortic aneurysm or dissection. Heart size is within normal limits. There is coronary artery calcification. Mitral annulus calcificat ion. No pericardial effusion. Mild bilateral upper lower lobe dependent atelectasis Minimal bilateral pleural effusion. Mild prominence of the bilateral hilar lymph nodes. No mediastinal lymphadenopathy. No suspicious osteolytic or osteoblastic lesions are noted. IMPRESSION: No evidence of pulmonary embolism Mild bilateral upper and lower lobe dependent atelectasis Reviewed, dictated and finalized at Location A. Reviewed, dictated and finalized at location A.
--- NOTE | ~2021-09-10 | CT_ITS ---
EXAMINATION: CT knee RT wo con DATE: 09/12/2021 14:04 INDICATION: TECHNIQUE: High resolution computed tomography (CT) of the right knee was performed without intraveno us contrast. Additional sagittal and coronal reconstructions were performed. Automated exposure contr ol and iterative reconstruction technique were employed. The dose-length product was 566.97 mGy-cm. COMPARISON: Radiographs dated 09/11/2021 FINDINGS: Mild genu vera. There is advanced osteoarthritis in medial compartment with remodeling of the cortex at the anterior two thirds of the medial tibial plateau which now parallels the contour of the juxtap osed anterior weightbearing medial femoral condyle. Moderate to large marginal osteophytes are presen t. Small to moderate-sized marginal osteophytes in the lateral and patellofemoral compartments. Mild lateral sided joint space narrowing at the patellofemoral articulation with mild lateral patellar til t. No fracture. Small right knee joint effusion. Likely age-related mild fatty atrophy of the muscula ture of the distal thigh and proximal calf. IMPRESSION: 1. Tricompartmental osteoarthritis at the right knee, advanced in the medial compartment with seconda ry mild genu varus. Reviewed, dictated and finalized at location A. IMPRESSION: 1. Tricompartmental osteoarthritis at the right knee, advanced in the medial co mpartment with secondary mild genu varus.
--- NOTE | ~2021-09-10 | XR_ITS ---
XR knee RT 3V 09/11/2021 11:20 Indication: Right knee pain after fall Procedure: 3 views right knee Comparison: No prior studies for comparison. Findings: Severe tricompartment osteoarthritis. Moderate joint effusion. No acute fracture is identif ied. Impression: 1: Severe tricompartment osteoarthritis of the right knee. 2: Moderate joint effusion. Reviewed, dictated and finalized at location L. Impression: 1: Severe tricompartment osteoarthritis of the right knee. 2: Moderate joint effusion.
--- NOTE | 2021-09-10 11:29 | PC.NURSE ---
Pt returning from x ray
--- NOTE | 2021-09-10 11:48 | PC.NURSE ---
national facilities manager of nursing facility called, wondering if pt could have workup for UTI while here. Pt has strong urine smell, urgency, and more incontinence than normal.
[2021-09-10 12:19] LABS: Basophils Percent Auto 0.6 % (0.2-1.2); Eosinophils Absolute Auto 0.2 K/mm3 (0-0.3); Eosinophils Percent Auto 3.1 % (0-4.4); Hematocrit 32.6 % (37.0-47.0); Hemoglobin 9.6 g/dL (12.0-15.0); Immature Granulocyte Absolute 0.01 K/mm3 (0.00-0.031); Immature Granulocyte Percent A 0.2 % (0-0.5); Immature Platelet Fraction Pct 6.3 % (0.9-11.2); Lymphocytes Absolute Auto 0.94 K/mm3 (0.9-3.2); Lymphocytes Percent Auto 19.5 % (18.3-44.2); Mean Corpuscular HGB Conc 29.4 g/dl (32-36); Mean Corpuscular Hemoglobin 31.5 pg (26-34); Mean Corpuscular Volume 106.9 fl (80-100); Mean Platelet Volume 10.7 fl (7.4-10.4); Monocytes Absolute Auto 0.7 K/mm3 (0.1-0.6); Monocytes Percent Auto 14.9 % (2.6-8.5); Neutrophils Percent Auto 61.7 % (45.5-73.1); Platelet Count Result 165 k/mm3 (150-375); Red Blood Count 3.05 M/mm3 (4.2-5.4); Red Cell Distribution Width 14.9 % (11.5-14.5); White Blood Count 4.8 K/mm3 (4.5-10.0)
[2021-09-10 12:23] LABS: Appearance Urine Clear (Clear); Bilirubin Urine Negative (Negative); Blood Urine Negative (Negative); Color Urine Yellow (Yellow); Glucose Urine UA Negative (Negative); Ketones Urine Negative (Negative); Leukocyte Esterase Ur Negative LEU/UL (Negative); Nitrate Urine Negative (Negative); Protein Urine Negative (Negative); Specific Grav Ur 1.015 (1.001-1.035); Urobilinogen Urine 0.2 mg/dL (<2.0)
[2021-09-10 12:25] LABS: Add Urine Microscopic? NO
[2021-09-10 12:29] LABS: Blood Urea Nitrogen 19 mg/dL (7-17); Calcium 8.3 mg/dL (8.4-10.2); Carbon Dioxide > 40 mmol/L (22-30); Chloride 101 mmol/L (98-107); Estimated CRCL calculation 59 ml/min; Estimated Glomerular Filt Rate > 60; Glucose 109 mg/dL (65-110); Potassium 3.6 mmol/L (3.4-5.0); Sodium 147 mmol/L (137-145)
[2021-09-10 12:48] LABS: Band Neutrophils Percent 1 % (0-6); Basophils Absolute Manual 0.04 K/mm3 (0.0-0.1); Basophils Percent Manual 1 % (0-1); Eosinophils Absolute Manual 0.09 K/mm3 (0.02-0.5); Eosinophils Percent Manual 2 % (0-4); Lymphocytes Absolute Manual 1.48 K/mm3 (1.1-4.5); Metamyelocytes Percent 6 %; Monocytes Absolute Manual 0.14 K/mm3 (0.1-0.90); Monocytes Percent Manual 3 % (3-9); Myelocytes Percent 1 %; Neutrophils Absolute Manual 2.64 K/mm3 (1.7-7.2); Neutrophils Percent Manual 54 % (46-73); Plasma Cells 1; Platelet Estimate Adequate (Adequate); Total Cells Counted 100
[2021-09-10 12:49] LABS: Atypical Lymphocytes Present; Hypochromasia 1+ (NORMAL); Stomatocytes 1+ (NORMAL)
[2021-09-10 12:58] LABS: Alveolar/Arterial O2 Gradient 59.8 mmHg; Base Excess ABG 10.1 mEq/l (+/-2.0); Carboxyhemoglobin 0.2 % THb (0-2.0); Fractional Inspired Oxygen 32 %; HCO3 ABG 38.2 mEq/l (22.0-26.0); Methemoglobin ABG 0.1 %THb (0-1.5); Oxygen Content ABG 14.6 %vol (16.0-22.0); PO2 ABG 82.6 mmHg (80.0-100.0); PO2 FiO2 Ratio Arterial Blood 2.58 %; Reduced Hemoglobin 5.7 %THb (0-5.0); pH ABG 7.335 (7.350-7.450)
[2021-09-10 13:01] LABS: PCO2 ABG 73.3 mmHg (35.0-45.0)
[2021-09-10 13:02] LABS: Device NASAL CANNULA; Modified Allen's Test Pass; Site Drawn RIGHT RADIAL
--- NOTE | 2021-09-10 13:50 | ED.GENADULT ---
HPI - General Adult General Chief complaint: Extremity Injury, Upper Stated complaint: arm injury Time Seen by Provider: 09/10/21 11:00 History of Present Illness HPI narrative: Patient is a 71-year-old female who presents ER from her long-term for evaluation of her right shoulder. Patient had a fall 3 days ago and injured her right shoulder and there is concerned that may be fractured or dislocated on outside x-ray. Patient maintains range of motion has pain over the posterior aspect of her shoulder. The long-term is also concerned she may have some sort of infection as she has been more confused and fatigued than usual. Patient is awake alert but does seem to be little blunted in her reaction. Patient reports she did not strike her head when she fell 3 days ago. She is not on any blood thinning medication. Related Data Home Medications Medication Instructions Recorded Confirmed aripiprazole 30 mg tablet 30 mg PO DAILY 01/24/20 05/22/21 benztropine 0.5 mg tablet 0.5 mg PO BID 01/24/20 05/22/21 carbamazepine 200 mg tablet 200 mg PO BID 01/24/20 05/22/21 divalproex 250 mg tablet,extended 250 mg PO DAILY 01/24/20 05/22/21 release 24 hr docusate sodium 100 mg capsule 100 mg PO DAILY 01/24/20 05/22/21 ergocalciferol (vitamin D2) 1,250 50,000 mcg PO MONTHLY 01/24/20 05/22/21 mcg (50,000 unit) capsule hydralazine 100 mg tablet 100 mg PO TID 01/24/20 05/22/21 losartan 100 mg tablet 100 mg PO DAILY 01/24/20 05/22/21 potassium chloride 10 mEq 10 meq PO DAILY 01/24/20 05/22/21 tablet,extended release (Klor-Con) simvastatin 20 mg tablet 20 mg PO HS 01/24/20 05/22/21 Milk of Magnesia 30 ml PO HS PRN Constipation 01/25/20 05/22/21 acetaminophen 325 mg tablet 650 mg PO Q4H PRN PAIN 01/25/20 05/22/21 aspirin 81 mg tablet,delayed 81 mg PO DAILY 01/25/20 05/22/21 release divalproex 500 mg tablet,extended 500 mg PO HS 01/25/20 05/22/21 release 24 hr furosemide 40 mg tablet 40 mg PO DAILY 01/25/20 05/22/21 gabapentin 400 mg tablet 400 mg PO TID 01/25/20 05/22/21 haloperidol 5 mg tablet 5 mg PO TID 01/25/20 05/22/21 ibuprofen 800 mg tablet 800 mg PO Q6H PRN Pain 01/25/20 05/22/21 ipratropium 0.5 mg-albuterol 3 mg 3 ml inhalation QID PRN Shortness 01/25/20 05/22/21 (2.5 mg base)/3 mL nebulization Of Breath Or Wheezing soln omeprazole 20 mg capsule,delayed 20 mg PO DAILY 01/25/20 05/22/21 release polyethylene glycol 1 ea miscellaneous DAILY 01/25/20 05/22/21 sertraline 25 mg tablet 25 mg PO DAILY 01/25/20 05/22/21 sertraline 50 mg tablet 100 mg PO DAILY 01/25/20 05/22/21 trazodone 50 mg tablet 50 mg PO HS PRN Insomnia 01/25/20 05/22/21 carvedilol 3.125 mg tablet 3.125 mg PO BID 05/22/21 05/22/21 nifedipine 60 mg tablet,extended 60 mg PO DAILY 05/22/21 05/22/21 release pantoprazole 20 mg tablet,delayed 20 mg PO DAILY 05/22/21 05/22/21 release Allergies Allergy/AdvReac Type Severity Reaction Status Date / Time Penicillins Allergy Unknown Hives / Verified 09/10/21 11:24 Red Face Review of Systems Review of Systems: All systems reviewed & are unremarkable except as noted in HPI and below Constitutional: Constitutional: Denies chills, Reports fatigue and Denies fever(s) ENT: Denies nasal congestion and Denies sore throat Cardiovascular: Cardiovascular: Denies chest pain, Denies rapid heart rate and Denies radiating jaw, neck or arm pain Respiratory: Respiratory: Denies chest congestion, Reports cough and Denies dyspnea Gastrointestinal: Gastrointestinal: Denies abdominal pain, Denies nausea and Denies vomiting Musculoskeletal: Musculoskeletal: Reports arthralgias and Denies joint swelling [facility] Past Medical History Medical History (Updated 09/10/21 @ 15:36 by Luis Manuel Alberts MD) Asthma Cerebrovascular accident Chronic obstructive pulmonary disease Deep venous thrombosis Gastroesophageal reflux disease Hypertension Migraine headache Schizophrenia Suspected 2019 novel coronavirus infection Type
[2021-09-10 14:14] LABS: SARS-CoV-2 RNA PCR Negative
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
--- NOTE | 2021-09-10 18:03 | ADMGEN ---
This patient, Yenny Hernandez, was admitted to IMU Room 204-01 on 09/10/21 at 1657. Patient/family oriented to hospital policies and general routines including ID bracelet, bed and alarms, visiting hours, pain management, procedures, bathroom and other care routines, personal items, smoking policy, room service/diet, and visiting hours. Information on how to activate the Rapid Response Team has been discussed. Patient/Family are encouraged to report perceived risks to care and to ask questions if they do not understand what they are told or what they should do.
[2021-09-10] MEDS: IPRATROPIUM BR 0.02% INH SOLN 0.5 MG/2.5 ML VIAL INHALATION (19:24)
[2021-09-10 19:39] LABS: Alveolar/Arterial O2 Gradient 68.4 mmHg; Base Excess ABG 12.2 mEq/l (+/-2.0); Carboxyhemoglobin 0.3 % THb (0-2.0); Fractional Inspired Oxygen 35 %; HCO3 ABG 40.4 mEq/l (22.0-26.0); Methemoglobin ABG 0.3 %THb (0-1.5); Oxygen Content ABG 15.5 %vol (16.0-22.0); Oxygen Saturation ABG 96.6 % (95.0-100.0); Oxyhemoglobin 95.4 % THb (90.0-100.0); PO2 ABG 94.9 mmHg (80.0-100.0); PO2 FiO2 Ratio Arterial Blood 2.71 %; Total Hemoglobin 11.5 g/dL (12.0-18.0); pH ABG 7.354 (7.350-7.450)
[2021-09-10 19:43] LABS: PCO2 ABG 74.2 mmHg (35.0-45.0)
[2021-09-10 19:44] LABS: Device BIPAP; Modified Allen's Test Pass; Site Drawn LEFT RADIAL
[2021-09-10 19:45] LABS: Expiratory Pressure 6 cmH2O; Inspiratory Pressure 12 cmH2O
[2021-09-10] MEDS: ACETAMINOPHEN 325 MG TABLET 650 MG PO (20:03)
[2021-09-11] VITALS (33 sets, daily range): BP systolic 151–213; BP diastolic 72–96; PULSE 55–94; RESP 16–30; TEMP 35.9–36.8; O2SAT 89–100
--- NOTE | 2021-09-11 00:15 | PC.NURSE ---
Dr. Celeste notified of elevated blood pressure, Patient has not been restarted on home blood pressure medications. Order to start Coreg, Hydralazine and clonidine, first dose now.
[2021-09-11] MEDS: ACETAMINOPHEN 325 MG TABLET 650 MG PO ×2 (01:06→20:40)
[2021-09-11] MEDS: carvediloL 3.125 MG TABLET PO ×3 (01:06→20:41)
[2021-09-11] MEDS: cloNIDine HCL 0.1 MG TABLET 0.3 MG PO ×3 (01:06→20:42)
[2021-09-11] MEDS: hydrALAZINE HCL 50 MG TABLET 100 MG PO ×4 (01:06→17:53)
[2021-09-11] MEDS: IPRATROPIUM BR 0.02% INH SOLN 0.5 MG/2.5 ML VIAL INHALATION ×4 (02:30→20:35)
[2021-09-11 04:46] LABS: Basophils Percent Auto 0.8 % (0.2-1.2); Eosinophils Absolute Auto 0.2 K/mm3 (0-0.3); Eosinophils Percent Auto 4.3 % (0-4.4); Hematocrit 33.1 % (37.0-47.0); Hemoglobin 10.2 g/dL (12.0-15.0); Immature Granulocyte Absolute 0.01 K/mm3 (0.00-0.031); Immature Granulocyte Percent A 0.3 % (0-0.5); Lymphocytes Absolute Auto 1.13 K/mm3 (0.9-3.2); Lymphocytes Percent Auto 30.1 % (18.3-44.2); Mean Corpuscular HGB Conc 30.8 g/dl (32-36); Mean Corpuscular Volume 103.8 fl (80-100); Monocytes Absolute Auto 0.7 K/mm3 (0.1-0.6); Monocytes Percent Auto 17.8 % (2.6-8.5); Neutrophils Absolute Auto 1.8 K/mm3 (1.3-6.7); Neutrophils Percent Auto 46.7 % (45.5-73.1); Platelet Count Result 155 k/mm3 (150-375); Red Blood Count 3.19 M/mm3 (4.2-5.4); Red Cell Distribution Width 14.5 % (11.5-14.5); White Blood Count 3.8 K/mm3 (4.5-10.0)
[2021-09-11 04:53] LABS: Hemoglobin A1C 5.3 % (<5.7)
[2021-09-11 05:04] LABS: Alanine Aminotransferase 10 U/L (6-35); Albumin Level 3.2 g/dL (3.5-5.1); Alkaline Phosphatase 66 U/L (38-126); Aspartate Amino Transferase 16 U/L (14-36); Bilirubin,Total 0.3 mg/dL (0.2-1.3); Blood Urea Nitrogen 16 mg/dL (7-17); Calcium 8.6 mg/dL (8.4-10.2); Carbon Dioxide > 40 mmol/L (22-30); Chloride 100 mmol/L (98-107); Estimated CRCL calculation 67 ml/min; Estimated Glomerular Filt Rate > 60; Glucose 92 mg/dL (65-110); Magnesium 2.1 mg/dL (1.6-2.3); Potassium 3.5 mmol/L (3.4-5.0); Sodium 143 mmol/L (137-145)
[2021-09-11 08:26] LABS: Glucose Point of Care 92 mg/dl (65-105)
--- NOTE | 2021-09-11 08:30 | P.PNIM_ITS ---
Progress Note: A&P Assessment and Plan (1) Acute respiratory failure with hypercapnia: Code(s): J96.02 - Acute respiratory failure with hypercapnia Status: Acute Assessment and Plan: * Blood gas repeated is showing respiratory acidosis that is compensated, CO2 has increased * BiPAP increased to 17/6 with a rate of 24 * PULM consult thank you for your help * Checks x-ray indicates pneumonia and lymphadenopathy * repeat chest xray * Consider CT of the chest * Continue neb treatments * Repeat ABG at 7:00 p.m. * Adjust therapy as indicated (2) Pneumonia: Code(s): J18.9 - Pneumonia, unspecified organism Status: Acute Assessment and Plan: * Chest x-ray indicates bilateral upper lobe airspace disease suspicious for pneumonia, bilateral Heller her prominence suspicious for lymphadenopathy from 09/10/21 * Repeat chest xray ordered * CT of the chest ordered * Pulmonary consult * Azithromycin and ceftriaxone on board * White blood cell count 4.8 * Sputum culture ordered * Blood culture ordered * Trend chest x-ray (3) Lymphadenopathy: Code(s): R59.1 - Generalized enlarged lymph nodes Status: Acute Assessment and Plan: * Indicated on the chest x-ray * CTA ordered * Pulmonology consult * Currently no indication of malignancy at this time (4) Chronic obstructive pulmonary disease: Code(s): J44.9 - Chronic obstructive pulmonary disease, unspecified Status: Acute Assessment and Plan: * Continue home neb treatments * Trend respiratory status * Adjust therapy as indicated * No acute exacerbation at this time (5) Acute metabolic encephalopathy: Code(s): G93.41 - Metabolic encephalopathy Status: Acute Assessment and Plan: * Appears patient is at baseline * Seems to be getting better now that she is on bipap * Appears to be hypercapnic with a P CO2 73.3 * Continue BiPAP 12/6 BR of 20 * Urine does not appear to be infectious * Could be from the multiple meds used for her schizophrenia * Hold haloperidol and trazodone (6) Hypertension: Code(s): I10 - Essential (primary) hypertension Status: Acute Assessment and Plan: * Current BP 184/81 * Continue Home carvedilol 3.125 mg p.o. b.i.d., clonidine patch hydralazine 100 mg p.o. t.i.d., losartan 100 mg p.o. daily, nifedipine 60 mg p.o. daily * Trend Blood pressure * Adjust therapy as indicated (7) Gastroesophageal reflux disease: Code(s): K21.9 - Gastro-esophageal reflux disease without esophagitis Status: Acute Assessment and Plan: * Continue home Protonix adjust dose to 40 mg p.o. daily (8) Type 2 diabetes mellitus: Code(s): E11.9 - Type 2 diabetes mellitus without complications Status: Acute Assessment and Plan: * Current glucose 96 * No current medical control * Diabetic diet * Insulin Lispro sliding scale * Accu-checks * Ac and HS * Obtain a HgbA1c in the a.m. (9) Schizophrenia: Qualifiers: Schizophrenia type: unspecified Qualified Code(s): F20.9 - Schizophrenia, unspecified Code(s): F20.9 - Schizophrenia, unspecified Status: Chronic Assessment and Plan: * Continue home medications * Adjust therapy as indicated
--- NOTE | 2021-09-11 08:30 | PM.IMPN ---
Progress Note: A&P Assessment and Plan (1) Acute respiratory failure with hypercapnia: Code(s): J96.02 - Acute respiratory failure with hypercapnia Status: Acute Assessment and Plan: Blood gas repeated is showing respiratory acidosis that is compensated, CO2 has increased BiPAP increased to 17/6 with a rate of 24 PULM consult thank you for your help Checks x-ray indicates pneumonia and lymphadenopathy repeat chest xray Consider CT of the chest Continue neb treatments Repeat ABG at 7:00 p.m. Adjust therapy as indicated (2) Pneumonia: Code(s): J18.9 - Pneumonia, unspecified organism Status: Acute Assessment and Plan: Chest x-ray indicates bilateral upper lobe airspace disease suspicious for pneumonia, bilateral Heller her prominence suspicious for lymphadenopathy from 09/10/21 Repeat chest xray ordered CT of the chest ordered Pulmonary consult Azithromycin and ceftriaxone on board White blood cell count 4.8 Sputum culture ordered Blood culture ordered Trend chest x-ray (3) Lymphadenopathy: Code(s): R59.1 - Generalized enlarged lymph nodes Status: Acute Assessment and Plan: Indicated on the chest x-ray CTA ordered Pulmonology consult Currently no indication of malignancy at this time (4) Chronic obstructive pulmonary disease: Code(s): J44.9 - Chronic obstructive pulmonary disease, unspecified Status: Acute Assessment and Plan: Continue home neb treatments Trend respiratory status Adjust therapy as indicated No acute exacerbation at this time (5) Acute metabolic encephalopathy: Code(s): G93.41 - Metabolic encephalopathy Status: Acute Assessment and Plan: Appears patient is at baseline Seems to be getting better now that she is on bipap Appears to be hypercapnic with a P CO2 73.3 Continue BiPAP 12/6 BR of 20 Urine does not appear to be infectious Could be from the multiple meds used for her schizophrenia Hold haloperidol and trazodone (6) Hypertension: Code(s): I10 - Essential (primary) hypertension Status: Acute Assessment and Plan: Current BP 184/81 Continue Home carvedilol 3.125 mg p.o. b.i.d., clonidine patch hydralazine 100 mg p.o. t.i.d., losartan 100 mg p.o. daily, nifedipine 60 mg p.o. daily Trend Blood pressure Adjust therapy as indicated (7) Gastroesophageal reflux disease: Code(s): K21.9 - Gastro-esophageal reflux disease without esophagitis Status: Acute Assessment and Plan: Continue home Protonix adjust dose to 40 mg p.o. daily (8) Type 2 diabetes mellitus: Code(s): E11.9 - Type 2 diabetes mellitus without complications Status: Acute Assessment and Plan: Current glucose 96 No current medical control Diabetic diet Insulin Lispro sliding scale Accu-checks Ac and HS Obtain a HgbA1c in the a.m. (9) Schizophrenia: Qualifiers: Schizophrenia type: unspecified Qualified Code(s): F20.9 - Schizophrenia, unspecified Code(s): F20.9 - Schizophrenia, unspecified Status: Chronic Assessment and Plan: Continue home medications Adjust therapy as indicated (10) NIGEL (obstructive sleep apnea): Code(s): G47.33 - Obstructive sleep apnea (adult) (pediatric) Status: Acute Assessment and Plan: Continue home CPAP or BiPAP at home settings (11) Chest pain: Code(s): R07.9 - Chest pain, unspecified Status: Acute Assessment and Plan: Reports intermittent chest pain, with shortness of breath Seems to only last a few minutes then dissipates Chest xray ordered Trop ordered BNP ordered Probably related to PNA Continue to monitor tele Time Spent With Patient Time with patient: Greater than 35 minutes Subjective Date
[2021-09-11] MEDS: ENOXAPARIN 40 MG/0.4 ML SYRINGE SUB-Q (08:35)
[2021-09-11 09:08] LABS: NT Pro B Type Natriuretic Pept 1370 pg/mL (5-100); Troponin I 0.017 ng/mL (0.000-0.034)
--- NOTE | 2021-09-11 12:42 | PM.CNPUL ---
Assessment and Plan Assessment and plan (1) Chronic respiratory failure with hypoxia and hypercapnia: Code(s): J96.11 - Chronic respiratory failure with hypoxia; J96.12 - Chronic respiratory failure with hypercapnia Status: Acute Assessment and Plan: Patient with chronic hypoxemic respiratory failure on 3 L nasal cannula 24-7. Patient has chronic hypercarbic respiratory failure dating back to blood gas on 01/13/2018 with a pH of 7.37/66/91. Patient had a blood gas on 06/04/2018 with pH of 7.30/67/63. currently the patient has a blood gas of 7.34/73/82 and a serum bicarbonate of greater than 40. The etiology of her chronic hypercarbic respiratory failure includes pneumonia, obesity hypoventilation syndrome, doubt hypothyroidism (TSH 0.609 on 05/23/2021), untreated sleep apnea, cardiac disease and asthma/COPD overlap. Of note she has minimal tobacco exposure per her account at approximately 1 PY and quit in 2002. she is and at a negative CT angiogram of the chest excluding pulmonary embolism. She has no interstitial lung disease or evidence of emphysema on her CT scan. I do not feel she is having an active exacerbation of COPD or asthma at this time. Patient is afebrile with no leukocytosis. Her COVID RT PCR test is negative, blood cultures are negative. Patient is on azithromycin and ceftriaxone day 2 currently. She is at her baseline 3 L nasal cannula and will attempt to wean to maintain saturations greater than 90%. Patient may have obstructive sleep apnea and she will ultimately need an outpatient split night sleep study to confirm this. I will order a echocardiogram to assess LV, RV function and valvular function. I will order a BMP for the morning. Patient may have asthma as she has had intermittent symptoms all her life that have improved with p.r.n. albuterol. Currently the patient is on levalbuterol and ipratropium nebulizers q.6 hours and I will add budesonide 500 mcg nebulized q.12 hours. Patient stated that the BiPAP pressures were uncomfortable for her and that she could not sleep with these pressures. I placed her on the a VATS mode and changed the settings to maximize comfort which ended up AVAPS rate of 16, tidal volume 500, EPAP 5, minimal inspiratory pressure 6, maximal inspiratory pressure 25, inspiratory time 1.0 seconds, rise of 4 and 30%. I will place the patient on these settings tonight and obtain an overnight oximetry and a blood gas in the morning prior to removal. Discussed with Nba Barrios, will follow with you. History of Present Illness History of Present Illness Consult date: 09/11/21 Chief complaint: hypercapnic encephalopathy,bilateral pneumonia Narrative: 09/11/2021: This is a new pulmonary consult for hypoxemic and hypercarbic respiratory failure. 71-year-old woman with a history of hypertension, DVT, asthma, COPD, hypoxic respiratory failure on 3 L at the shelter, CVA, schizophrenia, morbid obesity, schizophrenia and status post recent falls and syncopal episodes. Is difficult to get accurate information from the patient. The patient tells me that at age 11 she was admitted to the hospital and they told her she had asthma. She had shortness of breath and dyspnea on exertion throughout her life and intermittently was taking albuterol since age 23. She says that when she took the albuterol this helps her breathe, helps her take deeper breaths and open her up. Patient remembers as a child the tobacco smoking irritated her. At baseline currently patient is in a wheelchair since 2019 due to weakness is and frequent falls. She has no rest shortness of breath. She takes a short-acting beta agonist 2 times a day and she says it helps her. She wears 3 L nasal cannula at rest, with any activity and at night. We called the shelter and the patient is not on any CPAP and is compliant with her 3 L nasal cannula. patient smoked tobacco from [id number] at 3 at appr
[2021-09-11] MEDS: FUROSEMIDE 40 MG TABLET PO (14:04)
[2021-09-11] MEDS: LOSARTAN POTASSIUM 100 MG TABLET PO (14:04)
[2021-09-11] MEDS: SERTRALINE HCL 50 MG TABLET 100 MG PO (14:05)
[2021-09-11] MEDS: POTASSIUM CHLORIDE 10 MEQ TABLET.ER 20 MEQ PO (14:05)
[2021-09-11] MEDS: NIFEdipine 30 MG TAB.ER.24 60 MG PO ×2 (14:05→20:41)
--- NOTE | 2021-09-11 14:05 | ECHO_ITS ---
Patient Info Name: Yenny Hernandez Age: 71 years : 1950 Gender: Female Ht: 62 in Wt: 195 lbs BSA: 2.01 m2 HR: 68 bpm BP: 213 / 96 mmHg Technical Quality: Good Exam Date: 09/11/2021 4:18 PM Exam Location: [facility] Patient Status: Inpatient Admit Date: 09/10/2021 Staff Ordering Physician: Elvis Vuong MD Stenotype Operator: Peyton Benito RDCS Attending Provider: Ashley Martinez DO Referring Physician: Yevgeniy ANDERSON; Exam Type: CA echo doppler color flow Study Info Indications - ASSESS LV RV FUNCTION Complete two-dimensional, color flow and Doppler transthoracic echocardiogram is performed. Summary 1. Complete two-dimensional, color flow and Doppler transthoracic echocardiogram is performed. 2. Left ventricular systolic function is normal, estimated at 60-65%. 3. The left ventricular diastolic function is grade I diastolic dysfunction. 4. Left atrial chamber dimension is mildly enlarged. 5. There is mild aortic valve calcification. 6. There is mild mitral valve regurgitation. 7. There is mild mitral valve calcification. 8. There is mild tricuspid valve regurgitation. 9. Severe pulmonary hypertension, estimated pulmonary arterial systolic pressure is 63 mmHg. Left Ventricle Left ventricular chamber dimension is normal. Left ventricular systolic function is normal, estimated at 60-65%. There is no increased left ventricular wall thickness. Left ventricular septal wall motion is normal. The left ventricular diastolic function is grade I diastolic dysfunction. Right Ventricle Right ventricular chamber dimension is normal. Right ventricular systolic function is normal. Left Atria Left atrial chamber dimension is mildly enlarged. Right Atria Right atrial chamber dimension is normal. Atrial Septum Intact interatrial septum visualized by color flow imaging. Aortic Valve The aortic valve is not well visualized. There is no aortic valve stenosis. There is no aortic valve regurgitation. There is mild aortic valve calcification. Pulmonic Valve The pulmonic valve is normal. There is no pulmonic valve stenosis. There is no pulmonic regurgitation. Mitral Valve The mitral valve has normal leaflets. There is no mitral valve stenosis. There is mild mitral valve regurgitation. There is mild mitral valve calcification. Tricuspid Valve The tricuspid valve leaflets are normal. There is no significant tricuspid valve stenosis. There is mild tricuspid valve regurgitation. Severe pulmonary hypertension, estimated pulmonary arterial systolic pressure is 63 mmHg. Pericardium/Pleural The pericardium appears normal. There is no pericardial effusion. Inferior Vena Cava Normal inferior vena cava with <50% collapse upon inspiration consistent with elevated right atrial pressure, 10 mmHg. Aorta The aortic root size at the sinus of Valsalva is normal. The prox ascending aorta size is normal. Left Ventricular Outflow Tract Name Value Normal LVOT 2D LVOT Diameter 2.0 cm LVOT Doppler LVOT Peak Gradient 5 mmHg LVOT Mean Gradient
[2021-09-11] MEDS: SERTRALINE HCL 25 MG TABLET PO (14:06)
[2021-09-11] MEDS: GABAPENTIN 400 MG CAPSULE PO ×2 (14:06→17:53)
[2021-09-11] MEDS: BUDESONIDE RESPULE NEB 0.5 MG/2 ML AMP INHALATION ×2 (14:58→20:35)
[2021-09-11 20:37] LABS: Glucose Point of Care 124 mg/dl (65-105)
[2021-09-11] MEDS: ATORVASTATIN 20 MG TABLET PO (20:41)
[2021-09-11] MEDS: DIVALPROEX SODIUM DR 250 MG TABEC 500 MG PO (20:41)
[2021-09-11] MEDS: BENZTROPINE MESYLATE 0.5 MG TABLET PO (20:42)
[2021-09-11] MEDS: carBAMazepine 200 MG TABLET PO (20:42)
[2021-09-12] VITALS (22 sets, daily range): BP systolic 105–193; BP diastolic 48–106; PULSE 52–90; RESP 16–20; TEMP 36.3–36.4; O2SAT 65–100
--- NOTE | 2021-09-12 03:30 | PCRCNOTE ---
0200 UPD treatment on 09/12 not given due to pt being on apnea link. Next available administration is 0800.
[2021-09-12 05:28] LABS: Alveolar/Arterial O2 Gradient 89.2 mmHg; Base Excess ABG 10.1 mEq/l (+/-2.0); Fractional Inspired Oxygen 30 %; Oxygen Content ABG 16.3 %vol (16.0-22.0); Oxygen Saturation ABG 94.5 % (95.0-100.0); Oxyhemoglobin 92.3 % THb (90.0-100.0); PCO2 ABG 48.3 mmHg (35.0-45.0); PO2 FiO2 Ratio Arterial Blood 2.27 %; Site Drawn RIGHT RADIAL; Total Hemoglobin 12.5 g/dL (12.0-18.0); pH ABG 7.478 (7.350-7.450)
[2021-09-12 05:29] LABS: Device OTHER DEVICE; Modified Allen's Test Unable to perform
[2021-09-12 06:41] LABS: Eosinophils Absolute Auto 0.2 K/mm3 (0-0.3); Eosinophils Percent Auto 4.2 % (0-4.4); Hematocrit 35.7 % (37.0-47.0); Hemoglobin 11.6 g/dL (12.0-15.0); Immature Granulocyte Absolute 0.01 K/mm3 (0.00-0.031); Immature Granulocyte Percent A 0.3 % (0-0.5); Lymphocytes Absolute Auto 1.23 K/mm3 (0.9-3.2); Lymphocytes Percent Auto 32.2 % (18.3-44.2); Mean Corpuscular HGB Conc 32.5 g/dl (32-36); Mean Corpuscular Hemoglobin 32.2 pg (26-34); Mean Corpuscular Volume 99.2 fl (80-100); Mean Platelet Volume 10.3 fl (7.4-10.4); Monocytes Absolute Auto 0.7 K/mm3 (0.1-0.6); Monocytes Percent Auto 17.8 % (2.6-8.5); Neutrophils Absolute Auto 1.7 K/mm3 (1.3-6.7); Neutrophils Percent Auto 44.5 % (45.5-73.1); Platelet Count Result 183 k/mm3 (150-375); Red Cell Distribution Width 14.3 % (11.5-14.5); White Blood Count 3.8 K/mm3 (4.5-10.0)
[2021-09-12 06:52] LABS: Alanine Aminotransferase 11 U/L (6-35); Albumin Level 3.5 g/dL (3.5-5.1); Alkaline Phosphatase 74 U/L (38-126); Aspartate Amino Transferase 18 U/L (14-36); Bilirubin,Total 0.4 mg/dL (0.2-1.3); Blood Urea Nitrogen 12 mg/dL (7-17); Calcium 8.8 mg/dL (8.4-10.2); Carbon Dioxide > 40 mmol/L (22-30); Chloride 94 mmol/L (98-107); Estimated CRCL calculation 59 ml/min; Estimated Glomerular Filt Rate > 60; Glucose 90 mg/dL (65-110); Potassium 3.3 mmol/L (3.4-5.0); Sodium 139 mmol/L (137-145)
[2021-09-12 06:59] LABS: NT Pro B Type Natriuretic Pept 1440 pg/mL (5-100)
--- NOTE | 2021-09-12 08:00 | P.PNIM_ITS ---
Progress Note: A&P Assessment and Plan (1) Acute respiratory failure with hypercapnia: Code(s): J96.02 - Acute respiratory failure with hypercapnia Status: Acute Assessment and Plan: * Blood gas repeated is better with a CO2 of 48.3 and pH 7.478 pO 2 68.0, HCO3 35.0 * BiPAP increased to 17/6 with a rate of 24 * PULM consult thank you for your help * Currently on room air * Checks x-ray from 09/11/21 shows pulmonary congestion * Consider CTA No PE, atelectasis * Continue neb treatments * Adjust therapy as indicated * Pulm started on advair (2) Obesity hypoventilation syndrome: Code(s): E66.2 - Morbid (severe) obesity with alveolar hypoventilation Status: Acute Assessment and Plan: * See above * She will go back on bipap (3) Pneumonia: Code(s): J18.9 - Pneumonia, unspecified organism Status: Acute Assessment and Plan: * Chest x-ray indicates bilateral upper lobe airspace disease suspicious for pneumonia, bilateral Heller her prominence suspicious for lymphadenopathy from 09/10/21 * Repeat chest xray 09/11/21 shows pulmonary vascular congestion * CT of the chest no PE * Pulmonary consult * Azithromycin and ceftriaxone continued * White blood cell count 3.8 * Sputum culture ordered * Blood culture NGTD * Trend chest x-ray (4) Joint effusion of knee: Code(s): M25.469 - Effusion, unspecified knee Status: Acute Assessment and Plan: * Xray shows moderate joint effusion * Consulted orthopedic surgery thank you for your help * Will need probable aspiration * Uric acid ordered (5) Lymphadenopathy: Code(s): R59.1 - Generalized enlarged lymph nodes Status: Acute Assessment and Plan: * Indicated on the chest x-ray * CTA No PE atelectasis * Pulmonology consult * Currently no indication of malignancy at this time (6) Chronic obstructive pulmonary disease: Code(s): J44.9 - Chronic obstructive pulmonary disease, unspecified Status: Acute Assessment and Plan: * Continue home neb treatments * Trend respiratory status * Adjust therapy as indicated * No acute exacerbation at this time (7) Acute metabolic encephalopathy: Code(s): G93.41 - Metabolic encephalopathy Status: Acute Assessment and Plan: * Resolved * Appears patient is at baseline * Seems to be getting better now that she is on bipap * Appears to be hypercapnic with a P CO2 73.3 * Continue BiPAP / BR of 20 * Urine does not appear to be infectious * Could be from the multiple meds used for her schizophrenia * Hold haloperidol and trazodone (8) Hypertension: Code(s): I10 - Essential (primary) hypertension Status: Acute Assessment and Plan: * Current BP 178/92 * Continue Home carvedilol 3.125 mg p.o. b.i.d., clonidine patch hydralazine 100 mg p.o. t.i.d., losartan 100 mg p.o. daily, nifedipine 60 mg p.o. daily * Increased nifedipine to 60mg BID * Trend Blood pressure * Adjust therapy as indicated (9) Gastroesophageal reflux disease: Code(s): K21.9 - Gastro-esophageal reflux disease without esophagitis Status: Acute Assessment and Plan: * Continue home Protonix adjust dose to 40 mg p.o. daily (10) Type 2 diabetes me
--- NOTE | 2021-09-12 08:00 | PM.IMPN ---
Progress Note: A&P Assessment and Plan (1) Acute respiratory failure with hypercapnia: Code(s): J96.02 - Acute respiratory failure with hypercapnia Status: Acute Assessment and Plan: Blood gas repeated is better with a CO2 of 48.3 and pH 7.478 pO 2 68.0, HCO3 35.0 BiPAP increased to 17/6 with a rate of 24 PULM consult thank you for your help Currently on room air Checks x-ray from 09/11/21 shows pulmonary congestion Consider CTA No PE, atelectasis Continue neb treatments Adjust therapy as indicated Pulm started on advair (2) Obesity hypoventilation syndrome: Code(s): E66.2 - Morbid (severe) obesity with alveolar hypoventilation Status: Acute Assessment and Plan: See above She will go back on bipap (3) Pneumonia: Code(s): J18.9 - Pneumonia, unspecified organism Status: Acute Assessment and Plan: Chest x-ray indicates bilateral upper lobe airspace disease suspicious for pneumonia, bilateral Heller her prominence suspicious for lymphadenopathy from 09/10/21 Repeat chest xray 09/11/21 shows pulmonary vascular congestion CT of the chest no PE Pulmonary consult Azithromycin and ceftriaxone continued White blood cell count 3.8 Sputum culture ordered Blood culture NGTD Trend chest x-ray (4) Joint effusion of knee: Code(s): M25.469 - Effusion, unspecified knee Status: Acute Assessment and Plan: Xray shows moderate joint effusion Consulted orthopedic surgery thank you for your help Will need probable aspiration Uric acid ordered (5) Lymphadenopathy: Code(s): R59.1 - Generalized enlarged lymph nodes Status: Acute Assessment and Plan: Indicated on the chest x-ray CTA No PE atelectasis Pulmonology consult Currently no indication of malignancy at this time (6) Chronic obstructive pulmonary disease: Code(s): J44.9 - Chronic obstructive pulmonary disease, unspecified Status: Acute Assessment and Plan: Continue home neb treatments Trend respiratory status Adjust therapy as indicated No acute exacerbation at this time (7) Acute metabolic encephalopathy: Code(s): G93.41 - Metabolic encephalopathy Status: Acute Assessment and Plan: Resolved Appears patient is at baseline Seems to be getting better now that she is on bipap Appears to be hypercapnic with a P CO2 73.3 Continue BiPAP 12/6 BR of 20 Urine does not appear to be infectious Could be from the multiple meds used for her schizophrenia Hold haloperidol and trazodone (8) Hypertension: Code(s): I10 - Essential (primary) hypertension Status: Acute Assessment and Plan: Current BP 178/92 Continue Home carvedilol 3.125 mg p.o. b.i.d., clonidine patch hydralazine 100 mg p.o. t.i.d., losartan 100 mg p.o. daily, nifedipine 60 mg p.o. daily Increased nifedipine to 60mg BID Trend Blood pressure Adjust therapy as indicated (9) Gastroesophageal reflux disease: Code(s): K21.9 - Gastro-esophageal reflux disease without esophagitis Status: Acute Assessment and Plan: Continue home Protonix adjust dose to 40 mg p.o. daily (10) Type 2 diabetes mellitus: Code(s): E11.9 - Type 2 diabetes mellitus without complications Status: Acute Assessment and Plan: Current glucose 90 No current medical control Diabetic diet Insulin Lispro sliding scale Accu-checks Ac and HS A1c 5.3 (11) Schizophrenia: Qualifiers: Schizophrenia type: unspecified Qualified Code(s): F20.9 - Schizophrenia, unspecified Code(s): F20.9 - Schizophrenia, unspecified Status: Chronic Assessment and Plan: Continue home medications Adjust therapy as indicated (12) Chest pain: Code(s): R07.9 - Chest pain, unspecifi
[2021-09-12] MEDS: IPRATROPIUM BR 0.02% INH SOLN 0.5 MG/2.5 ML VIAL INHALATION (08:37)
[2021-09-12] MEDS: BUDESONIDE RESPULE NEB 0.5 MG/2 ML AMP INHALATION ×2 (08:38→20:22)
[2021-09-12 08:41] LABS: Glucose Point of Care 94 mg/dl (65-105)
[2021-09-12] MEDS: cloNIDine HCL 0.1 MG TABLET 0.3 MG PO ×2 (09:28→20:13)
[2021-09-12] MEDS: NIFEdipine 30 MG TAB.ER.24 60 MG PO ×2 (09:28→20:12)
[2021-09-12] MEDS: GABAPENTIN 400 MG CAPSULE PO ×3 (09:29→17:20)
[2021-09-12] MEDS: ARIPiprazole 10 MG TABLET 30 MG PO (09:29)
[2021-09-12] MEDS: POTASSIUM CHLORIDE 10 MEQ TABLET.ER 20 MEQ PO (09:29)
[2021-09-12] MEDS: ASPIRIN 81 MG ENTERIC TABLET PO (09:29)
[2021-09-12] MEDS: SERTRALINE HCL 25 MG TABLET PO (09:30)
[2021-09-12] MEDS: BENZTROPINE MESYLATE 0.5 MG TABLET PO ×2 (09:30→20:12)
[2021-09-12 09:31] LABS: Uric Acid 4.9 mg/dL (2.5-7.5)
[2021-09-12] MEDS: SERTRALINE HCL 50 MG TABLET 100 MG PO (09:32)
[2021-09-12] MEDS: hydrALAZINE HCL 50 MG TABLET 100 MG PO ×3 (09:32→17:20)
[2021-09-12] MEDS: carBAMazepine 200 MG TABLET PO ×2 (09:33→20:12)
[2021-09-12] MEDS: PANTOPRAZOLE 40 MG TABLET PO (09:33)
[2021-09-12] MEDS: carvediloL 3.125 MG TABLET PO ×2 (09:33→20:12)
[2021-09-12] MEDS: ENOXAPARIN 40 MG/0.4 ML SYRINGE SUB-Q (09:34)
[2021-09-12] MEDS: DIVALPROEX SODIUM DR 250 MG TABEC 500 MG PO ×2 (09:34→20:13)
[2021-09-12] MEDS: FUROSEMIDE INJ 40 MG/4 ML VIAL IV PUSH ×2 (09:34→17:21)
[2021-09-12] MEDS: LOSARTAN POTASSIUM 100 MG TABLET PO (09:34)
--- NOTE | 2021-09-12 09:46 | PM.PNPUL ---
Progress Note: A&P Assessment and Plan (1) Obesity hypoventilation syndrome: Code(s): E66.2 - Morbid (severe) obesity with alveolar hypoventilation Status: Acute Assessment and Plan: 09/11 Patient with morbid obesity, chronic hypoxemic respiratory failure on 3 L nasal cannula 24-7. Patient has chronic hypercarbic respiratory failure dating back to blood gas on 01/13/2018 with a pH of 7.37/66/91. Patient had a blood gas on 06/04/2018 with pH of 7.30/67/63. currently the patient has a blood gas of 7.34/73/82 and a serum bicarbonate of greater than 40. She has minimal tobacco exposure at approximately 1 pack year and quit in 2002, no emphesema on CT scan of chest, no pulmonary embolism by CT angiogram and no interstitial lung disease with normal TSH on 05/23/2021. The patient has obesity hypoventilation syndrome with chronic hypercarbic respiratory failure and hypoxemic respiratory failure. The patient would benefit from noninvasive ventilation To prevent subsequent deterioration and to prevent hospitalizations in the future.. She struggled with the BiPAP and tolerated the AVAPS much better. Patient is afebrile with no leukocytosis. Her COVID RT PCR test is negative, blood cultures are negative. Patient is on azithromycin and ceftriaxone day 2 currently. She is at her baseline 3 L nasal cannula and will attempt to wean to maintain saturations greater than 90%. I will order a echocardiogram to assess LV, RV function and valvular function. I will order a BMP for the morning. Patient stated that the BiPAP pressures were uncomfortable for her and that she could not sleep with these pressures. I placed her on the a VATS mode and changed the settings to maximize comfort which ended up AVAPS rate of 16, tidal volume 500, EPAP 5, minimal inspiratory pressure 6, maximal inspiratory pressure 25, inspiratory time 1.0 seconds, rise of 4 and 30%. I will place the patient on these settings tonight and obtain an overnight oximetry and a blood gas in the morning prior to removal. 09/12 patient wore the noninvasive ventilator with AVAPS mode rate of 16, tidal volume 500, EPAP 5, minimal inspiratory pressure 6, maximal inspiratory pressure 25, inspiratory time 1.0 seconds, rise of 4 and 30% overnight. she said she tolerated this well and slept well. ABG prior to removal of the mask was 7.48/48/68. Patient had an overnight oximetry on the above settings and her time with saturation less than or equal to 88% was 29 minutes or 8% of the monitored time. The settings provide adequate ventilation and I will increase her FiO2 to 35% and repeat an overnight oximetry on these settings. Our urgent care technician will call [facility] to determine if they can implement BiPAP or noninvasive ventilation with a trilogy machine. Echocardiogram demonstrates normal LV function 60-65%, grade 1 diastolic dysfunction, mildly enlarged left atrium mild mitral regurg, mild tricuspid regurg with severe pulmonary hypertension with an estimated PASP of 63. Her BNP is elevated at 1440. Will discuss increasing diuretics with hospitalist team. Discussed with Nba Barrios, will follow with you. (2) Asthma: Code(s): J45.909 - Unspecified asthma, uncomplicated Status: Acute Assessment and Plan: The patient has had intermittent symptoms since childhood which have responded to p.r.n. albuterol in the past. The albuterol helps her take deeper breaths and relieves chest tightness. Currently the patient is improved on inhaled budesonide 500 mcg b.i.d., levalbuterol and ipratropium nebulizers. I will DC ipratroprium. Will continue. No wheezing and I will not treat with systemic steroids at this time. Subjective Date/time seen: 09/12/21 09:46 Interval history: 09/11/2021:? This is a new pulmonary consult for hypoxemic and hypercarbic respiratory failure. ? 71-year-old woman with a history of hypertension, DVT, asthma, CO
[2021-09-12 12:19] LABS: Glucose Point of Care 175 mg/dl (65-105)
--- NOTE | 2021-09-12 14:48 | PC.NURSE ---
This patient, Yenny Hernandez, was transferred to [facility] on 09/12/21 at 1435. Personal belongings sent with patient. Report given to Summer GOMEZ. Appropriate documentation sent with patient.
[2021-09-12 16:44] LABS: Glucose Point of Care 122 mg/dl (65-105)
--- NOTE | 2021-09-12 17:12 | PCPTNOTE ---
Will see patient once evaluated by ortho surgeon. Will follow.
[2021-09-12] MEDS: ATORVASTATIN 20 MG TABLET PO (20:12)
[2021-09-12] MEDS: ACETAMINOPHEN 325 MG TABLET 650 MG PO (20:15)
[2021-09-12 21:01] LABS: Glucose Point of Care 98 mg/dl (65-105)
[2021-09-13] VITALS (20 sets, daily range): BP systolic 111–151; BP diastolic 56–76; PULSE 51–72; RESP 14–20; TEMP 35.7–36.9; O2SAT 92–98
--- NOTE | 2021-09-13 05:33 | PCRCNOTE ---
0200 breathing treatment omitted due to patient being on an apnea link.
[2021-09-13 06:01] LABS: Alveolar/Arterial O2 Gradient 127.9 mmHg; Fractional Inspired Oxygen 35 %; HCO3 ABG 35.6 mEq/l (22.0-26.0); Oxygen Content ABG 16.5 %vol (16.0-22.0); Oxygen Saturation ABG 92.4 % (95.0-100.0); Oxyhemoglobin 89.8 % THb (90.0-100.0); PCO2 ABG 51.5 mmHg (35.0-45.0); PO2 ABG 61.8 mmHg (80.0-100.0); PO2 FiO2 Ratio Arterial Blood 1.77 %; Total Hemoglobin 13.1 g/dL (12.0-18.0); pH ABG 7.457 (7.350-7.450)
[2021-09-13 06:05] LABS: Device NON-INVASIVE VENT; Modified Allen's Test Pass; Non-Invasive Expiratory Pressure 5 CMH2O; Non-Invasive Inspiratory Pressure 16 CMH2O; Non-Invasive Vent Rate 20 /MIN; Site Drawn RIGHT RADIAL
[2021-09-13 06:55] LABS: Basophils Absolute Auto 0.1 K/mm3 (0.0-0.1); Basophils Percent Auto 1.4 % (0.2-1.2); Eosinophils Absolute Auto 0.2 K/mm3 (0-0.3); Hematocrit 39.5 % (37.0-47.0); Hemoglobin 12.7 g/dL (12.0-15.0); Immature Granulocyte Absolute 0.01 K/mm3 (0.00-0.031); Immature Granulocyte Percent A 0.2 % (0-0.5); Lymphocytes Absolute Auto 1.51 K/mm3 (0.9-3.2); Lymphocytes Percent Auto 34.2 % (18.3-44.2); Mean Corpuscular HGB Conc 32.2 g/dl (32-36); Mean Corpuscular Hemoglobin 32.2 pg (26-34); Mean Platelet Volume 10.7 fl (7.4-10.4); Monocytes Absolute Auto 0.8 K/mm3 (0.1-0.6); Monocytes Percent Auto 18.1 % (2.6-8.5); Neutrophils Absolute Auto 1.8 K/mm3 (1.3-6.7); Neutrophils Percent Auto 41.1 % (45.5-73.1); Platelet Count Result 202 k/mm3 (150-375); Red Blood Count 3.95 M/mm3 (4.2-5.4); Red Cell Distribution Width 14.5 % (11.5-14.5); White Blood Count 4.4 K/mm3 (4.5-10.0)
--- NOTE | 2021-09-13 07:00 | PM.DS ---
DS: Admitting Diagnosis Discharge Date 09/14/21 0700 Admitting Diagnosis Acute on chronic respiratory failure DS: Discharge Diagnosis Discharge Diagnosis (1) Acute respiratory failure with hypercapnia: Code(s): J96.02 - Acute respiratory failure with hypercapnia Status: Acute Assessment and Plan: Blood gas repeated is better with a CO2 of 48.3 and pH 7.478 pO 2 68.0, HCO3 35.0 BiPAP increased to 17/6 with a rate of 24 PULM consult thank you for your help Currently on room air Checks x-ray from 09/11/21 shows pulmonary congestion Consider CTA No PE, atelectasis Continue neb treatments Adjust therapy as indicated Pulm started on advair Bipap at night with 4L bleed in (2) Obesity hypoventilation syndrome: Code(s): E66.2 - Morbid (severe) obesity with alveolar hypoventilation Status: Acute Assessment and Plan: See above She will go back on bipap (3) Pneumonia: Code(s): J18.9 - Pneumonia, unspecified organism Status: Acute Assessment and Plan: Chest x-ray indicates bilateral upper lobe airspace disease suspicious for pneumonia, bilateral Heller her prominence suspicious for lymphadenopathy from 09/10/21 Repeat chest xray 09/11/21 shows pulmonary vascular congestion CT of the chest no PE Pulmonary consult Azithromycin and ceftriaxone continued White blood cell count 3.8 Sputum culture ordered Blood culture NGTD Trend chest x-ray (4) Joint effusion of knee: Code(s): M25.469 - Effusion, unspecified knee Status: Acute Assessment and Plan: Xray shows moderate joint effusion Consulted orthopedic surgery thank you for your help Will need probable aspiration Uric acid 4.9 Patient is refusing wanting to do anything right now (5) Lymphadenopathy: Code(s): R59.1 - Generalized enlarged lymph nodes Status: Acute Assessment and Plan: Indicated on the chest x-ray CTA No PE atelectasis Pulmonology consult Currently no indication of malignancy at this time (6) Chronic obstructive pulmonary disease: Code(s): J44.9 - Chronic obstructive pulmonary disease, unspecified Status: Acute Assessment and Plan: Continue home neb treatments Trend respiratory status Adjust therapy as indicated No acute exacerbation at this time (7) Acute metabolic encephalopathy: Code(s): G93.41 - Metabolic encephalopathy Status: Acute Assessment and Plan: Resolved Appears patient is at baseline Seems to be getting better now that she is on bipap Appears to be hypercapnic with a P CO2 73.3 Continue BiPAP /6 BR of 20 Urine does not appear to be infectious Could be from the multiple meds used for her schizophrenia Hold haloperidol and trazodone (8) Hypertension: Code(s): I10 - Essential (primary) hypertension Status: Acute Assessment and Plan: Current BP 111/56 Continue Home carvedilol 3.125 mg p.o. b.i.d., clonidine patch hydralazine 100 mg p.o. t.i.d., losartan 100 mg p.o. daily, nifedipine 60 mg p.o. daily Increased nifedipine to 60mg BID Trend Blood pressure Adjust therapy as indicated (9) Gastroesophageal reflux disease: Code(s): K21.9 - Gastro-esophageal reflux disease without esophagitis Status: Acute Assessment and Plan: Continue home Protonix adjust dose to 40 mg p.o. daily (10) Type 2 diabetes mellitus: Code(s): E11.9 - Type 2 diabetes mellitus without complications Status: Acute Assessment and Plan: Current glucose 90 No current medical control Diabetic diet Insulin Lispro sliding scale Accu-checks Ac and HS A1c 5.3 (11) Schizophrenia: Qualifiers: Schizophrenia type: unspecified Qualified Code(s): F20.9 - Schizophrenia, unspecified Code(s): F20.9 - Schiz
[2021-09-13 07:12] LABS: Alanine Aminotransferase 11 U/L (6-35); Albumin Level 3.7 g/dL (3.5-5.1); Alkaline Phosphatase 75 U/L (38-126); Anion Gap 6 mmol/L (8-16); Aspartate Amino Transferase 19 U/L (14-36); Bilirubin,Total 0.5 mg/dL (0.2-1.3); Blood Urea Nitrogen 14 mg/dL (7-17); Carbon Dioxide 38 mmol/L (22-30); Chloride 94 mmol/L (98-107); Estimated CRCL calculation 57 ml/min; Estimated Glomerular Filt Rate > 60; Glucose 90 mg/dL (65-110); Potassium 3.3 mmol/L (3.4-5.0); Sodium 138 mmol/L (137-145)
[2021-09-13] MEDS: BUDESONIDE RESPULE NEB 0.5 MG/2 ML AMP INHALATION (07:39)
--- NOTE | 2021-09-13 07:39 | PM.CNOR ---
Assessment and Plan Assessment and plan (1) Joint effusion of knee: Code(s): M25.469 - Effusion, unspecified knee Status: Acute Plan This patient is a 71-year-old female was brought in through the senior care for worsening of chronic respiratory failure. She has history of severe COPD. She has been seen by the manager architectural. A CT angiogram ruled out pulmonary embolism. She was noted to have pain and swelling in the right knee. She reports that she did fall last Thursday and her knee was more sore after that. She has a history of chronic right knee pain at least 3 years duration she states. Currently today she feels it is approximately as sore as it normally is. She normally mobilizes in a wheelchair at the senior care. This is in part because of her severe right knee arthritis. She had an echocardiogram which shows severe pulmonary hypertension 63 mmHg. On exam she is a very pleasant female no acute distress. She answered questions appropriately and seemed to be a good historian this morning. She had full range of motion of her right hip without discomfort. Range of motion of right knee was from 0-125 degrees with mild discomfort medially. She had moderate tenderness over the medial joint line. Ahtv-lz-dzyzuiqk effusion is palpable. She has moderate pseudolaxity to varus valgus stress. She has moderately obese. No significant parapatellar tenderness. Skin looks normal. No warmth. She has a 2+ dorsalis pedis pulse. Normal sensation the right foot. Normal motor function in the right foot. She was able do a straight leg raise against resistance demonstrating only minimal discomfort at medial knee with this maneuver and 5/5 quadriceps strength the same finding minimal discomfort medial knee. X-rays were nonweightbearing and showed prominent wear of the medial tibial plateau and flattening of the medial femoral condyle consistent with advanced medial compartment osteoarthritis. CT scan showed the same showed no evidence of fracture. It did show a spah-iw-eveqcbfz effusion the CT scan. Her laboratory studies show negative urinalysis, hemoglobin A1c of 5.3%. White count of 4.4 1000 platelets 2 100-1000 neutrophils slightly low at 41.1%. Impression: Patient has advanced medial compartment osteoarthritis in her right knee. I discussed with her the option of a cortisone injection into the knee. She declines stating that it does not bother her enough to warrant that at this time. I talked to her about getting a blood test done to make sure she does not have evidence of a severe infection in her body and we will order a sedimentation rate and CRP. If the CRP is greater than 10 times normal then I would strongly advise aspirating the right knee and sending this for culture but she does not have clinical findings to indicate a septic arthritis in the knee currently. She does not have the hypersensitivity or pain with range of motion that we would usually see with an inflammatory arthritis such as infection or gout. will order CRP and sedimentation rate and follow-up with that. Her activity level may be weight-bearing as tolerated on the right leg using the walker with transfers and wheelchair for most of her mobilization as she has been doing for last few years. History of Present Illness HPI Consult date: 09/13/21 Chief complaint: hypercapnic encephalopathy,bilateral pneumonia [facility] Past Medical History Medical History Asthma Cerebrovascular accident Chronic obstructive pulmonary disease Deep venous thrombosis Gastroesophageal reflux disease Hypertension Migraine headache Schizophrenia Suspected 2019 novel coronavirus infection Type 2 diabetes mellitus Diet-controlled. Surgical History Surgical History History of arthroscopy of right knee History of section, classical History of cholecy
[2021-09-13 08:05] LABS: Glucose Point of Care 101 mg/dl (65-105)
--- NOTE | 2021-09-13 08:27 | PM.PNPUL ---
Progress Note: A&P Assessment and Plan (1) Obesity hypoventilation syndrome: Code(s): E66.2 - Morbid (severe) obesity with alveolar hypoventilation Status: Acute Assessment and Plan: 09/11 Patient with morbid obesity, chronic hypoxemic respiratory failure on 3 L nasal cannula 24-7. Patient has chronic hypercarbic respiratory failure dating back to blood gas on 01/13/2018 with a pH of 7.37/66/91. Patient had a blood gas on 06/04/2018 with pH of 7.30/67/63. currently the patient has a blood gas of 7.34/73/82 and a serum bicarbonate of greater than 40. She has minimal tobacco exposure at approximately 1 pack year and quit in 2002, no emphesema on CT scan of chest, no pulmonary embolism by CT angiogram and no interstitial lung disease with normal TSH on 05/23/2021. The patient has obesity hypoventilation syndrome with chronic hypercarbic respiratory failure and hypoxemic respiratory failure. The patient would benefit from noninvasive ventilation To prevent subsequent deterioration and to prevent hospitalizations in the future.. She struggled with the BiPAP and tolerated the AVAPS much better. Patient is afebrile with no leukocytosis. Her COVID RT PCR test is negative, blood cultures are negative. Patient is on azithromycin and ceftriaxone day 2 currently. She is at her baseline 3 L nasal cannula and will attempt to wean to maintain saturations greater than 90%. I will order a echocardiogram to assess LV, RV function and valvular function. I will order a BMP for the morning. Patient stated that the BiPAP pressures were uncomfortable for her and that she could not sleep with these pressures. I placed her on the a VATS mode and changed the settings to maximize comfort which ended up AVAPS rate of 16, tidal volume 500, EPAP 5, minimal inspiratory pressure 6, maximal inspiratory pressure 25, inspiratory time 1.0 seconds, rise of 4 and 30%. I will place the patient on these settings tonight and obtain an overnight oximetry and a blood gas in the morning prior to removal. 09/12 patient wore the noninvasive ventilator with AVAPS mode rate of 16, tidal volume 500, EPAP 5, minimal inspiratory pressure 6, maximal inspiratory pressure 25, inspiratory time 1.0 seconds, rise of 4 and 30% overnight. she said she tolerated this well and slept well. ABG prior to removal of the mask was 7.48/48/68. Patient had an overnight oximetry on the above settings and her time with saturation less than or equal to 88% was 29 minutes or 8% of the monitored time. The settings provide adequate ventilation and I will increase her FiO2 to 35% and repeat an overnight oximetry on these settings. Our specialist wound care will call [facility] to determine if they can implement BiPAP or noninvasive ventilation with a trilogy machine. Echocardiogram demonstrates normal LV function 60-65%, grade 1 diastolic dysfunction, mildly enlarged left atrium mild mitral regurg, mild tricuspid regurg with severe pulmonary hypertension with an estimated PASP of 63. Her BNP is elevated at 1440. Will discuss increasing diuretics with hospitalist team. Lasix changed to IV. 09/13 We spoke with [facility] and they can not administer a noninvasive ventilation with an AVAPS mode but can administer BiPAP. Last night the patient was placed on BiPAP rate of 20, 16/5, 35%, inspiratory time 0.9 seconds, rise of 2 with a rise of 1 our fastest and a rise of 5 the slowest. Patient said she wore this with a fullface mask and did well and slept well. Patient had an ABG prior to removal of the BiPAP with a pH of 7.46/52/62. Patient had an overnight oximetry on the settings with time of saturation less than or equal to 88% at 18 minutes or 6% of the monitored time. The time with saturation less than 88% was toward the end of the night and the tracing was sporadic during this time. The above BiPAP settings provide adequate ventilation and the overnight oxi
[2021-09-13 08:43] LABS: CRP 0.6 mg/dL (<1.0)
[2021-09-13] MEDS: ARIPiprazole 10 MG TABLET 30 MG PO (09:01)
[2021-09-13] MEDS: ASPIRIN 81 MG ENTERIC TABLET PO (09:02)
[2021-09-13] MEDS: carBAMazepine 200 MG TABLET PO ×2 (09:02→21:29)
[2021-09-13] MEDS: BENZTROPINE MESYLATE 0.5 MG TABLET PO ×2 (09:02→21:28)
[2021-09-13] MEDS: cloNIDine HCL 0.1 MG TABLET 0.3 MG PO ×2 (09:03→21:29)
[2021-09-13] MEDS: carvediloL 3.125 MG TABLET PO ×2 (09:03→21:29)
[2021-09-13] MEDS: ENOXAPARIN 40 MG/0.4 ML SYRINGE SUB-Q (09:04)
[2021-09-13] MEDS: DIVALPROEX SODIUM DR 250 MG TABEC 500 MG PO ×2 (09:04→21:29)
[2021-09-13] MEDS: FUROSEMIDE INJ 40 MG/4 ML VIAL IV PUSH (09:05)
[2021-09-13] MEDS: LOSARTAN POTASSIUM 100 MG TABLET PO (09:05)
[2021-09-13] MEDS: GABAPENTIN 400 MG CAPSULE PO ×3 (09:05→17:09)
[2021-09-13] MEDS: hydrALAZINE HCL 50 MG TABLET 100 MG PO ×3 (09:05→17:09)
[2021-09-13 09:06] LABS: Erythrocyte Sedimentation Rate 16 mm/hr (0-20)
[2021-09-13] MEDS: PANTOPRAZOLE 40 MG TABLET PO (09:06)
[2021-09-13] MEDS: NIFEdipine 30 MG TAB.ER.24 60 MG PO ×2 (09:06→21:30)
[2021-09-13] MEDS: SERTRALINE HCL 50 MG TABLET 100 MG PO (09:07)
[2021-09-13] MEDS: POTASSIUM CHLORIDE 10 MEQ TABLET.ER 20 MEQ PO (09:07)
[2021-09-13] MEDS: SERTRALINE HCL 25 MG TABLET PO (09:08)
[2021-09-13 11:34] LABS: Glucose Point of Care 114 mg/dl (65-105)
[2021-09-13] MEDS: FLUTICASONE/SALMETEROL 230-21 MCG INHALER 1 PUFF 2 PUFF INHALATION ×2 (12:47→20:37)
[2021-09-13] MEDS: POTASSIUM CHLORIDE 20 MEQ TABLET 40 MEQ PO (12:53)
--- NOTE | 2021-09-13 14:15 | P.PNIM_ITS ---
Progress Note: A&P Assessment and Plan (1) Acute respiratory failure with hypercapnia: Code(s): J96.02 - Acute respiratory failure with hypercapnia Status: Acute Assessment and Plan: * Blood gas repeated is better with a CO2 of 48.3 and pH 7.478 pO 2 68.0, HCO3 35.0 * BiPAP increased to 17/6 with a rate of 24 * PULM consult thank you for your help * Currently on room air * Checks x-ray from 09/11/21 shows pulmonary congestion * Consider CTA No PE, atelectasis * Continue neb treatments * Adjust therapy as indicated * Pulm started on advair * Bipap at night with 4L bleed in (2) Obesity hypoventilation syndrome: Code(s): E66.2 - Morbid (severe) obesity with alveolar hypoventilation Status: Acute Assessment and Plan: * See above * She will go back on bipap (3) Pneumonia: Code(s): J18.9 - Pneumonia, unspecified organism Status: Acute Assessment and Plan: * Chest x-ray indicates bilateral upper lobe airspace disease suspicious for pneumonia, bilateral Heller her prominence suspicious for lymphadenopathy from 09/10/21 * Repeat chest xray 09/11/21 shows pulmonary vascular congestion * CT of the chest no PE * Pulmonary consult * Azithromycin and ceftriaxone continued * White blood cell count 3.8 * Sputum culture ordered * Blood culture NGTD * Trend chest x-ray (4) Joint effusion of knee: Code(s): M25.469 - Effusion, unspecified knee Status: Acute Assessment and Plan: * Xray shows moderate joint effusion * Consulted orthopedic surgery thank you for your help * Will need probable aspiration * Uric acid 4.9 * Patient is refusing wanting to do anything right now (5) Lymphadenopathy: Code(s): R59.1 - Generalized enlarged lymph nodes Status: Acute Assessment and Plan: * Indicated on the chest x-ray * CTA No PE atelectasis * Pulmonology consult * Currently no indication of malignancy at this time (6) Chronic obstructive pulmonary disease: Code(s): J44.9 - Chronic obstructive pulmonary disease, unspecified Status: Acute Assessment and Plan: * Continue home neb treatments * Trend respiratory status * Adjust therapy as indicated * No acute exacerbation at this time (7) Acute metabolic encephalopathy: Code(s): G93.41 - Metabolic encephalopathy Status: Acute Assessment and Plan: * Resolved * Appears patient is at baseline * Seems to be getting better now that she is on bipap * Appears to be hypercapnic with a P CO2 73.3 * Continue BiPAP 12/6 BR of 20 * Urine does not appear to be infectious * Could be from the multiple meds used for her schizophrenia * Hold haloperidol and trazodone (8) Hypertension: Code(s): I10 - Essential (primary) hypertension Status: Acute Assessment and Plan: * Current BP 111/56 * Continue Home carvedilol 3.125 mg p.o. b.i.d., clonidine patch hydralazine 100 mg p.o. t.i.d., losartan 100 mg p.o. daily, nifedipine 60 mg p.o. daily * Increased nifedipine to 60mg BID * Trend Blood pressure * Adjust therapy as indicated (9) Gastroesophageal reflux disease: Code(s): K21.9 - Gastro-esophageal reflux disease without esophagitis Status: Acute Assessment and Plan: * Continue home Protonix
--- NOTE | 2021-09-13 14:15 | PM.IMPN ---
Progress Note: A&P Assessment and Plan (1) Acute respiratory failure with hypercapnia: Code(s): J96.02 - Acute respiratory failure with hypercapnia Status: Acute Assessment and Plan: Blood gas repeated is better with a CO2 of 48.3 and pH 7.478 pO 2 68.0, HCO3 35.0 BiPAP increased to 17/6 with a rate of 24 PULM consult thank you for your help Currently on room air Checks x-ray from 09/11/21 shows pulmonary congestion Consider CTA No PE, atelectasis Continue neb treatments Adjust therapy as indicated Pulm started on advair Bipap at night with 4L bleed in (2) Obesity hypoventilation syndrome: Code(s): E66.2 - Morbid (severe) obesity with alveolar hypoventilation Status: Acute Assessment and Plan: See above She will go back on bipap (3) Pneumonia: Code(s): J18.9 - Pneumonia, unspecified organism Status: Acute Assessment and Plan: Chest x-ray indicates bilateral upper lobe airspace disease suspicious for pneumonia, bilateral Heller her prominence suspicious for lymphadenopathy from 09/10/21 Repeat chest xray 09/11/21 shows pulmonary vascular congestion CT of the chest no PE Pulmonary consult Azithromycin and ceftriaxone continued White blood cell count 3.8 Sputum culture ordered Blood culture NGTD Trend chest x-ray (4) Joint effusion of knee: Code(s): M25.469 - Effusion, unspecified knee Status: Acute Assessment and Plan: Xray shows moderate joint effusion Consulted orthopedic surgery thank you for your help Will need probable aspiration Uric acid 4.9 Patient is refusing wanting to do anything right now (5) Lymphadenopathy: Code(s): R59.1 - Generalized enlarged lymph nodes Status: Acute Assessment and Plan: Indicated on the chest x-ray CTA No PE atelectasis Pulmonology consult Currently no indication of malignancy at this time (6) Chronic obstructive pulmonary disease: Code(s): J44.9 - Chronic obstructive pulmonary disease, unspecified Status: Acute Assessment and Plan: Continue home neb treatments Trend respiratory status Adjust therapy as indicated No acute exacerbation at this time (7) Acute metabolic encephalopathy: Code(s): G93.41 - Metabolic encephalopathy Status: Acute Assessment and Plan: Resolved Appears patient is at baseline Seems to be getting better now that she is on bipap Appears to be hypercapnic with a P CO2 73.3 Continue BiPAP / BR of 20 Urine does not appear to be infectious Could be from the multiple meds used for her schizophrenia Hold haloperidol and trazodone (8) Hypertension: Code(s): I10 - Essential (primary) hypertension Status: Acute Assessment and Plan: Current BP 111/56 Continue Home carvedilol 3.125 mg p.o. b.i.d., clonidine patch hydralazine 100 mg p.o. t.i.d., losartan 100 mg p.o. daily, nifedipine 60 mg p.o. daily Increased nifedipine to 60mg BID Trend Blood pressure Adjust therapy as indicated (9) Gastroesophageal reflux disease: Code(s): K21.9 - Gastro-esophageal reflux disease without esophagitis Status: Acute Assessment and Plan: Continue home Protonix adjust dose to 40 mg p.o. daily (10) Type 2 diabetes mellitus: Code(s): E11.9 - Type 2 diabetes mellitus without complications Status: Acute Assessment and Plan: Current glucose 90 No current medical control Diabetic diet Insulin Lispro sliding scale Accu-checks Ac and HS A1c 5.3 (11) Schizophrenia: Qualifiers: Schizophrenia type: unspecified Qualified Code(s): F20.9 - Schizophrenia, unspecified Code(s): F20.9 - Schizophrenia, unspecified Status: Chronic Assessment and Plan: Continue home medications Adjust therapy as
[2021-09-13 16:37] LABS: Glucose Point of Care 116 mg/dl (65-105)
[2021-09-13] MEDS: ACETAMINOPHEN 325 MG TABLET 650 MG PO (17:08)
[2021-09-13] MEDS: FUROSEMIDE 40 MG TABLET PO (17:10)
[2021-09-13] MEDS: ATORVASTATIN 20 MG TABLET PO (21:28)
[2021-09-14] VITALS (9 sets, daily range): BP systolic 143–179; BP diastolic 71–81; PULSE 57–72; RESP 15–20; TEMP 36.5; O2SAT 92–96
[2021-09-14 00:01] LABS: Glucose Point of Care 109 mg/dl (65-105)
[2021-09-14 05:23] LABS: Basophils Percent Auto 0.8 % (0.2-1.2); Eosinophils Absolute Auto 0.2 K/mm3 (0-0.3); Eosinophils Percent Auto 4.1 % (0-4.4); Hemoglobin 12.5 g/dL (12.0-15.0); Immature Granulocyte Absolute 0.01 K/mm3 (0.00-0.031); Immature Granulocyte Percent A 0.3 % (0-0.5); Lymphocytes Absolute Auto 1.34 K/mm3 (0.9-3.2); Mean Corpuscular HGB Conc 32.1 g/dl (32-36); Mean Corpuscular Hemoglobin 32.1 pg (26-34); Mean Corpuscular Volume 100.3 fl (80-100); Mean Platelet Volume 10.8 fl (7.4-10.4); Monocytes Absolute Auto 0.8 K/mm3 (0.1-0.6); Monocytes Percent Auto 20.1 % (2.6-8.5); Neutrophils Absolute Auto 1.6 K/mm3 (1.3-6.7); Neutrophils Percent Auto 40.7 % (45.5-73.1); Platelet Count Result 220 k/mm3 (150-375); Red Blood Count 3.89 M/mm3 (4.2-5.4); Red Cell Distribution Width 14.9 % (11.5-14.5); White Blood Count 3.9 K/mm3 (4.5-10.0)
[2021-09-14 05:39] LABS: Alanine Aminotransferase 9 U/L (6-35); Albumin Level 3.6 g/dL (3.5-5.1); Alkaline Phosphatase 75 U/L (38-126); Anion Gap 7 mmol/L (8-16); Aspartate Amino Transferase 21 U/L (14-36); Bilirubin,Total 0.4 mg/dL (0.2-1.3); Blood Urea Nitrogen 16 mg/dL (7-17); Calcium 8.9 mg/dL (8.4-10.2); Carbon Dioxide 36 mmol/L (22-30); Chloride 97 mmol/L (98-107); Estimated CRCL calculation 51 ml/min; Estimated Glomerular Filt Rate > 60; Glucose 90 mg/dL (65-110); Magnesium 2.1 mg/dL (1.6-2.3); Potassium 3.4 mmol/L (3.4-5.0); Sodium 140 mmol/L (137-145)
[2021-09-14 06:18] LABS: EDCOVIDSCREEN Negative (Negative)
[2021-09-14 07:40] LABS: Glucose Point of Care 132 mg/dl (65-105)
[2021-09-14] MEDS: NIFEdipine 30 MG TAB.ER.24 60 MG PO (09:12)
[2021-09-14] MEDS: carBAMazepine 200 MG TABLET PO (09:12)
[2021-09-14] MEDS: BENZTROPINE MESYLATE 0.5 MG TABLET PO (09:12)
[2021-09-14] MEDS: cloNIDine HCL 0.1 MG TABLET 0.3 MG PO (09:12)
[2021-09-14] MEDS: LOSARTAN POTASSIUM 100 MG TABLET PO (09:13)
[2021-09-14] MEDS: GABAPENTIN 400 MG CAPSULE PO (09:13)
[2021-09-14] MEDS: carvediloL 3.125 MG TABLET PO (09:13)
[2021-09-14] MEDS: ARIPiprazole 10 MG TABLET 30 MG PO (09:13)
[2021-09-14] MEDS: POTASSIUM CHLORIDE 10 MEQ TABLET.ER 20 MEQ PO (09:13)
[2021-09-14] MEDS: hydrALAZINE HCL 50 MG TABLET 100 MG PO (09:13)
[2021-09-14] MEDS: FUROSEMIDE 40 MG TABLET PO (09:14)
[2021-09-14] MEDS: DIVALPROEX SODIUM DR 250 MG TABEC 500 MG PO (09:14)
[2021-09-14] MEDS: PANTOPRAZOLE 40 MG TABLET PO (09:14)
[2021-09-14] MEDS: SERTRALINE HCL 25 MG TABLET PO (09:14)
[2021-09-14] MEDS: ASPIRIN 81 MG ENTERIC TABLET PO (09:14)
[2021-09-14] MEDS: ENOXAPARIN 40 MG/0.4 ML SYRINGE SUB-Q (09:14)
[2021-09-14] MEDS: SERTRALINE HCL 50 MG TABLET 100 MG PO (09:14)
[2021-09-14] MEDS: FLUTICASONE/SALMETEROL 230-21 MCG INHALER 1 PUFF 2 PUFF INHALATION (09:18)
== END 2021-09-14 10:00 | DRG 133 ==
LOC: ANHED 15:36 → ANHIMU 19:23 → ANH2MED 09-13 15:59 → ANHIMU 09-16 10:30
PROVIDERS: Internal Medicine Pulmonary Disease; Orthopaedic Surgery; Admitting Provider Student in an Organized Health Care Education/Training Program; Emergency Provider Emergency Medicine; Visit Provider Nurse Practitioner
DX: J96.22 Acute and chronic respiratory failure with hypercapnia (principal); J18.9 Pneumonia, unspecified organism; J44.0 Chronic obstructive pulmonary disease with (acute) lower respiratory infection; J96.11 Chronic respiratory failure with hypoxia; G93.41 Metabolic encephalopathy; I11.0 Hypertensive heart disease with heart failure; I50.32 Chronic diastolic (congestive) heart failure; E66.2 Morbid (severe) obesity with alveolar hypoventilation; E11.9 Type 2 diabetes mellitus without complications; K21.9 Gastro-esophageal reflux disease without esophagitis; F20.9 Schizophrenia, unspecified; I27.20 Pulmonary hypertension, unspecified; R59.1 Generalized enlarged lymph nodes; M17.11 Unilateral primary osteoarthritis, right knee; M25.461 Effusion, right knee; M25.511 Pain in right shoulder; R07.9 Chest pain, unspecified; R60.9 Edema, unspecified; I08.1 Rheumatic disorders of both mitral and tricuspid valves; Z86.718 Personal history of other venous thrombosis and embolism; Z68.35 Body mass index [BMI] 35.0-35.9, adult; Z79.82 Long term (current) use of aspirin; Z87.891 Personal history of nicotine dependence; Z90.49 Acquired absence of other specified parts of digestive tract; Z96.642 Presence of left artificial hip joint; Z99.81 Dependence on supplemental oxygen; Z91.81 History of falling; Z99.3 Dependence on wheelchair; Z86.69 Personal history of other diseases of the nervous system and sense organs; Z86.73 Personal history of transient ischemic attack (TIA), and cerebral infarction without residual deficits
CPT/HCPCS: 36415; 36600; 51701; 71046; 71275; 73030; 73562; 73700; 80048; 80053; 81003; 82375; 82805; 82948; 83036; 83050; 83735; 83880; 84484; 84550; 85025; 85055; 85380; 85652; 86140; 87040; 87426; 93306; 94002; 94003; 94640; 94762; 96365; 96375; 97161; 99285; A9270; C9803; J0456; J0696; J1650; J1940; Q9967; U0003; U0005

== ENCOUNTER 2021-10-14 13:23 | Outpatient (CLI) | payer OTHER, SELFPAY ==
--- NOTE | ~2021-10-14 | MM_ITS ---
EXAMINATION: MM diagnostic vibha RT w asim HISTORY: Right breast asymmetry on screening mammogram TECHNIQUE: Additional 3-D tomosynthesis images of the right breast were performed and synthetic 2-D i mages were generated. CAD analysis was submitted and interpreted. COMPARISON: 09/04/2021, 07/12/2020 BREAST PARENCHYMAL COMPOSITION: There are scattered areas of fibroglandular density. FINDINGS: There is a return to baseline fibroglandular appearance with spot compression of the right breast in the area questioned on screening mammogram. IMPRESSION: 1. No mammographic evidence of malignancy. 2. Recommend routine screening mammography in one year. BI-RADS Category 1: Negative Reviewed, dictated and finalized at location A.
== END 2021-10-14 13:24 | disposition home or self-care (01) ==
LOC: ANHIMG 13:25
PROVIDERS: Visit Provider Internal Medicine Hematology & Oncology
DX: R92.8 Other abnormal and inconclusive findings on diagnostic imaging of breast (principal)
CPT/HCPCS: 77061; 77065; G0279

== ENCOUNTER 2021-10-31 10:06 | Outpatient (CLI) | payer OTHER, SELFPAY ==
--- NOTE | 2021-10-31 13:00 | WPDPFTINT ---
PFT Procedure Performed PFT Procedure Performed Spirometry with Pre/Post Bronchodilator Plethysmography (Lung Vol) Diffusing Cap (DLCO) Flow Vol Loop PFT Interpretation Lung volumes were measured with the body plethysmography method. Lung volumes are unremarkable. Spirometry showed diminished expiratory flow rates and a diminished FEV1 to FVC ratio 67% consistent with obstructive airway disease. Following administration of a bronchodilator there was significant increase in the FVC. The flow volume loop is consistent with obstructive airway disease. Lung diffusion capacity is moderately reduced at 57% predicted. Impression: Moderate obstructive airway disease with significant response to bronchodilators on this testing. Moderately reduced lung diffusion capacity.
== END 2021-10-31 10:07 | disposition home or self-care (01) ==
LOC: ANHPFT 10:09
PROVIDERS: Visit Provider Internal Medicine Pulmonary Disease
DX: R06.02 Shortness of breath (principal)
CPT/HCPCS: 94060; 94726; 94729

== ENCOUNTER 2022-02-01 18:47 | Inpatient (IN) | payer OTHER, SELFPAY ==
[2022-02-01] VITALS (7 sets, daily range): BP systolic 178–179; BP diastolic 82–92; PULSE 67–74; RESP 15–20; TEMP 36.4; O2SAT 85–96
--- NOTE | ~2022-02-01 | XR_ITS ---
EXAMINATION: XR chest 1V portable INDICATION: Altered mental status TECHNIQUE: Portable AP chest at 1143 hours COMPARISON: 09/11/2021 FINDINGS: There are minimal airspace opacities of the lung bases. No pleural effusion or pneumothorax . The cardiomediastinal silhouette is normal. Moderate osteoarthritis is noted in the shoulders. IMPRESSION: 1. Minimal bibasilar airspace opacities, consistent with atelectasis versus pneumonia. Reviewed, dictated and finalized at location A. L FINANCIAL SPECIALIST IMPRESSION: 1. Minimal bibasilar airspace opacities, consistent with atelectasis versus pne umonia.
--- NOTE | ~2022-02-01 | XR_ITS ---
EXAMINATION: XR knee RT 3V DATE: 02/01/2022 19:50 INDICATION: Generalized right knee pain TECHNIQUE: AP, oblique and flexed lateral views of the right knee were obtained COMPARISON: None. FINDINGS: Alignment is normal. No fracture. Severe osteoarthritis in the medial compartment with severe joint space narrowing best appreciated on the lateral image and with remodeling with increased concavity to the anteromedial articular surface of the medial tibial plateau. Additional osteoarthritis with smal l to moderate size marginal ossified to lateral and patellofemoral compartments. Small right knee adan nt effusion at the suprapatellar pouch. Soft tissues are unremarkable. Subcutaneous edema at the visu alized proximal lower leg. IMPRESSION: 1. Tricompartmental osteoarthritis at the right knee, severe in the medial compartment with likely re active small right knee joint effusion. Reviewed, dictated and finalized at location A. ING MACHINE FEEDER IMPRESSION: 1. Tricompartmental osteoarthritis at the right knee, severe in the medial comp artment with likely reactive small right knee joint effusion.
--- NOTE | 2022-02-01 18:54 | ECG_ITS ---
Measurements Intervals [place] Rate: 68 P: 54 [place]: 187 QRS: 43 QRSD: 83 T: 139 QT: 423 QTc: 450 Interpretive Statements SINUS RHYTHM NONSPECIFIC T-WAVE ABNORMALITY COMPARED TO ECG 07/01/2021 15:05:24 NO SIGNIFICANT CHANGES Electronically Signed On 02-01-2022 21:18:22 LAPIDARIST by Serena Schwarz M.D.
--- NOTE | 2022-02-01 19:05 | ED.GENADULT ---
HPI - General Adult General Chief complaint: Altered Mental Status Stated complaint: AMS LOW BP Time Seen by Provider: 02/01/22 19:01 History of Present Illness HPI narrative: Patient is a 71-year-old female who presents ER with reports of hypertension and confusion from her residential. Apparently patient was falling asleep while she was eating her dinner and that is why she got sent in. Patient is alert and orient x4 but has history of schizophrenia. She was reporting that she injured her knee earlier in the day and has some pain on the right side. However at the same time she is reporting she is always worried about the affected knee because she had a fracture in that knee as a child but never healed and she would like it checked out today. Patient denies any chest pain or chest pressure or cough. She has difficulty providing additional history. [facility] chart review shows history of hypercapnia which could be affecting patient today. Related Data Home Medications Medication Instructions Recorded Confirmed aripiprazole 30 mg tablet 30 mg PO DAILY 01/24/20 02/02/22 benztropine 0.5 mg tablet 0.5 mg PO BID 01/24/20 02/02/22 carbamazepine 200 mg tablet 200 mg PO BID 01/24/20 02/02/22 docusate sodium 100 mg capsule 100 mg PO DAILY 01/24/20 02/02/22 ergocalciferol (vitamin D2) 1,250 1,250 mcg PO MONTHLY 01/24/20 02/02/22 mcg (50,000 unit) capsule hydralazine 100 mg tablet 100 mg PO TID 01/24/20 02/02/22 losartan 100 mg tablet 100 mg PO DAILY 01/24/20 02/02/22 potassium chloride 10 mEq 20 meq PO DAILY 01/24/20 02/02/22 tablet,extended release (Klor-Con) Milk of Magnesia 30 ml PO DAILY PRN Constipation 01/25/20 02/02/22 aspirin 81 mg tablet,delayed 81 mg PO DAILY 01/25/20 02/02/22 release furosemide 40 mg tablet 20 mg PO DAILY 01/25/20 02/02/22 gabapentin 400 mg tablet 400 mg PO TID 01/25/20 02/02/22 haloperidol 5 mg tablet 5 mg PO BID 01/25/20 02/02/22 ibuprofen 800 mg tablet 800 mg PO Q8H PRN Pain 01/25/20 02/02/22 polyethylene glycol See Rx Instructions .Route .COMPLEX 01/25/20 02/02/22 sertraline 25 mg tablet 25 mg PO DAILY 01/25/20 02/02/22 sertraline 50 mg tablet 50 mg PO DAILY 01/25/20 02/02/22 trazodone 50 mg tablet 50 mg PO HS 01/25/20 02/02/22 carvedilol 3.125 mg tablet 3.125 mg PO BID 05/22/21 02/02/22 nifedipine 60 mg tablet,extended 60 mg PO DAILY 05/22/21 02/02/22 release pantoprazole 20 mg tablet,delayed 40 mg PO DAILY 05/22/21 02/02/22 release Artificial Tears 1 drp EACH EYE Q6H PRN Dry Eye(S) 09/10/21 02/02/22 acetaminophen 500 mg tablet 1,000 mg PO BID 09/10/21 02/02/22 atorvastatin 20 mg tablet 20 mg PO HS 09/10/21 02/02/22 clonidine HCl 0.3 mg tablet 0.3 mg PO Q12H 09/10/21 02/02/22 nystatin 100,000 unit/gram topical 1 applic topical BID 09/10/21 02/02/22 cream olanzapine 10 mg tablet 10 mg PO DAILY 09/10/21 02/02/22 divalproex 500 mg tablet,delayed 500 mg PO BID 09/11/21 02/02/22 release budesonide-formoterol HFA 80 2 puff inhalation BID 02/02/22 02/02/22 mcg-4.5 mcg/actuation aerosol inhaler (Symbicort) ferrous sulfate 325 mg (65 mg 325 mg PO DAILY 02/02/22 02/02/22 iron) tablet Allergies Allergy/AdvReac Type Severity Reaction Status Date / Time Penicillins Allergy Unknown Hives / Verified 10/14/21 09:35 Red Face Review of Systems Review of Systems: All systems reviewed & are unremarkable except as noted in HPI and below Constitutional: Constitutional: Denies chills, Reports fatigue and Denies fever(s) Cardiovascular: Cardiovascular: Denies chest pain, Denies rapid heart rate and Denies radiating jaw, neck or arm pain Respiratory: Respiratory: Denies cough and Denies dyspnea Gastrointestinal: Gastrointestinal: Denies abdominal pain, Denies nausea and Denies vomiting Musculoskeletal: Musculoskeletal: Reports arthralgias, Denies joint swelling and Denies muscle cramps Neurologic: Denies syncope, Denies numbness and Denies weakness PMFSH Past Medical History Med
[2022-02-01 19:06] LABS: Add Urine Microscopic? NO; Appearance Urine Clear (Clear); Bilirubin Urine Negative (Negative); Blood Urine Negative (Negative); Color Urine Light Yellow (Yellow); Glucose Urine UA Negative (Negative); Ketones Urine Negative (Negative); Leukocyte Esterase Ur Negative LEU/UL (Negative); Nitrate Urine Negative (Negative); Protein Urine Negative (Negative); Specific Grav Ur 1.015 (1.001-1.035); Urobilinogen Urine 0.2 mg/dL (<2.0); pH Urine 5.5 (5.0-9.0)
[2022-02-01 19:13] LABS: RBC Urine 0-2 /hpf (0-2); Squamous Epithelial Cell Urine Rare /hpf (Few); WBC Urine 0-3 /hpf
[2022-02-01 19:15] LABS: Basophils Percent Auto 0.8 % (0.2-1.2); Eosinophils Absolute Auto 0.1 K/mm3 (0-0.3); Eosinophils Percent Auto 2.9 % (0-4.4); Hemoglobin 13.2 g/dL (12.0-15.0); Lymphocytes Absolute Auto 2.07 K/mm3 (0.9-3.2); Lymphocytes Percent Auto 42.9 % (18.3-44.2); Mean Corpuscular HGB Conc 31.4 g/dl (32-36); Mean Corpuscular Hemoglobin 32.2 pg (26-34); Mean Corpuscular Volume 102.4 fl (80-100); Mean Platelet Volume 10.1 fl (7.4-10.4); Monocytes Absolute Auto 0.6 K/mm3 (0.1-0.6); Monocytes Percent Auto 12.8 % (2.6-8.5); Neutrophils Percent Auto 40.6 % (45.5-73.1); Platelet Count Result 177 k/mm3 (150-375); Red Cell Distribution Width 13.9 % (11.5-14.5); White Blood Count 4.8 K/mm3 (4.5-10.0)
[2022-02-01 19:24] LABS: Alanine Aminotransferase 14 U/L (6-35); Albumin Level 4.4 g/dL (3.5-5.1); Alkaline Phosphatase 69 U/L (38-126); Anion Gap 5 mmol/L (8-16); Aspartate Amino Transferase 21 U/L (14-36); Bilirubin,Total 0.3 mg/dL (0.2-1.3); Blood Urea Nitrogen 28 mg/dL (7-17); Calcium 8.6 mg/dL (8.4-10.2); Carbon Dioxide 35 mmol/L (22-30); Chloride 99 mmol/L (98-107); Estimated CRCL calculation 52 ml/min; Estimated Glomerular Filt Rate 60; Glucose 90 mg/dL (65-110); Potassium 3.9 mmol/L (3.4-5.0); Sodium 139 mmol/L (137-145)
[2022-02-01 19:25] LABS: Alveolar/Arterial O2 Gradient 21.4 mmHg; Base Excess ABG 2.1 mEq/l (+/-2.0); Carboxyhemoglobin 1.1 % THb (0-2.0); Fractional Inspired Oxygen 21 %; HCO3 ABG 29.6 mEq/l (22.0-26.0); Methemoglobin ABG 0.2 %THb (0-1.5); Oxygen Content ABG 16.8 %vol (16.0-22.0); PCO2 ABG 58.7 mmHg (35.0-45.0); PO2 FiO2 Ratio Arterial Blood 2.76 %; Reduced Hemoglobin 12.3 %THb (0-5.0); Total Hemoglobin 13.8 g/dL (12.0-18.0)
[2022-02-01 19:26] LABS: Oxygen Saturation ABG 87.4 % (95.0-100.0)
[2022-02-01 19:27] LABS: Device ROOM AIR; Modified Allen's Test Unable to perform; Oxyhemoglobin 86.4 % THb (90.0-100.0); Site Drawn RIGHT RADIAL
[2022-02-01 19:35] LABS: INR 1.1; Prothrombin Time 14.2 Seconds (11.1-14.7)
[2022-02-01 19:36] LABS: Partial Thromboplastin Time 27.8 SECONDS (22.3-36.8)
[2022-02-01] MEDS: ALBUTEROL SULFATE NEB 2.5 MG/3 ML INH 10 MG INHALATION (21:26)
[2022-02-01] MEDS: IPRATROPIUM BR 0.02% INH SOLN 0.5 MG/2.5 ML VIAL 1 MG INHALATION (21:26)
[2022-02-01] MEDS: methylPREDNISolone SOD SUCC 125 MG VIAL IV PUSH (21:53)
[2022-02-01 23:09] LABS: Influenza A QL RT-PCR Negative (Negative); Influenza B QL RT-PCR Negative (Negative); SARS-CoV-2 RNA PCR Negative
--- NOTE | 2022-02-01 23:17 | PC.NURSE ---
Patient 85% on room air and placed on 3L O2 per verbal order from Dr Alberts
--- NOTE | 2022-02-01 23:26 | PM.IMHP ---
H&P: HPI History of Present Illness Date/Time: 02/01/22 23:26 Chief Complaint: Altered mental status Narrative: This is a 71-[facility]-old female [facility] double was sent to the emergency room due to altered mental status patient was obtunded and lethargic while eating dinner. Here preliminary workup was significant for a slightly elevated creatinine from her usual a chest x-ray was significant for opacities. At the time of my visit patient was unable to give any history which I have obtained upon reviewing medical records and speaking to emergency room physician. Patient was hypoxic in the emergency room an ABG showed elevated pCO2 58, PO2 of 58 pH of 7.32 patient was placed on supplemental oxygen by nasal cannula. Patient is been admitted for further evaluation management and treatment. Review of Systems Review of Systems: ROS unobtainable: Yes unobtainable due to mental status PMFSH Past Medical History Medical History Asthma Cerebrovascular accident Chronic obstructive pulmonary disease Deep venous thrombosis Gastroesophageal reflux disease Hypertension Migraine headache Schizophrenia Suspected 2019 novel coronavirus infection Type 2 diabetes mellitus Diet-controlled. Surgical History Surgical History History of arthroscopy of right knee History of section, classical History of cholecystectomy History of left hip replacement History of sinus surgery Family History Family History Mother Heart disease Cancer Cerebrovascular accident Sibling Pacemaker Social History Social History Social History: Lives at: [facility]. Likes to color and do crafts. Her surrogate is Carri Rangel her medical case manager. She does have 4 children which she stated are all over the area. She also stated that her son Jorge is here however he does not know much about her. She wishes to be a go code at this time. Code status: Full code Smoking packs per day: 1 Smoking cigarettes per day: 20.0 Years smoked: 21 Smoking pack-years: 21.00 Smoking status: Former smoker Tobacco type: cigarettes Second hand tobacco smoke exposure: Yes Additional smoking assessment comments: Patient was around a lot of folks at smoked Alcohol intake: never Substance use: never Substance use type: does not use Lack of Transportation: No Lack of Food: Never True Current Housing: I Have Housing Concerned About Future Housing: No Difficulty Paying Gas/Electric Bills: No Difficulty Paying for Meds: No Currently Unemployed: No Education: High School Diploma/GED Difficulty w/ Childcare or Family Care: No Additional living arrangements comments: Resident at [facility]. Additional occupation/education comments: Disabled. Gender identity (if verbalized by the patient): Female Sexual Orientation (if Verbalized by the Patient): Straight or Heterosexual Spiritual care concerns: No Agree to blood products: Yes Meds Home Medications and Allergies Home Medications Medication Instructions Recorded Confirmed Type aripiprazole 30 mg tablet 30 mg PO DAILY 01/24/20 02/02/22 History benztropine 0.5 mg tablet 0.5 mg PO BID 01/24/20 02/02/22 History carbamazepine 200 mg tablet 200 mg PO BID 01/24/20 02/02/22 History docusate sodium 100 mg capsule 100 mg PO DAILY 01/24/20 02/02/22 History ergocalciferol (vitamin D2) 1,250 1,250 mcg PO MONTHLY 01/24/20 02/02/22 History mcg (50,000 unit) capsule hydralazine 100 mg tablet 100 mg PO TID 01/24/20 02/02/22 History losartan 100 mg tablet 100 mg PO DAILY 01/24/20 02/02/22 History potassium chloride 10 mEq 20 meq PO DAILY 01/24/20 02/02/22 History tablet,extended release (Klor-Con) Milk of Magnesia 30 ml PO DA
--- NOTE | 2022-02-01 23:59 | PC.NURSE ---
Talked to Nereida in lab to add on BNP at 23:59
[2022-02-02] VITALS (21 sets, daily range): BP systolic 113–191; BP diastolic 54–95; PULSE 71–88; RESP 16–20; TEMP 36.6–37.1; O2SAT 91–100; BMI 33.7
[2022-02-02 00:23] LABS: NT Pro B Type Natriuretic Pept 250 pg/mL (5-100)
--- NOTE | 2022-02-02 00:45 | ADMGEN ---
This patient, Yenny Hernandez, was admitted to IMU Room 213-01 at 0045. Patient/family oriented to hospital policies and general routines including ID bracelet, bed and alarms, visiting hours, pain management, procedures, bathroom and other care routines, personal items, smoking policy, room service/diet, and visiting hours. Information on how to activate the Rapid Response Team has been discussed. Patient/Family are encouraged to report perceived risks to care and to ask questions if they do not understand what they are told or what they should do.
[2022-02-02] MEDS: HYDROcodone/acetaminophen (*CRX) 5-325 MG TABLET 1 TAB PO (02:52)
[2022-02-02] MEDS: ALBUTEROL SULFATE NEB 2.5 MG/3 ML INH 5 MG INHALATION ×2 (03:13→08:46)
[2022-02-02] MEDS: IPRATROPIUM BR 0.02% INH SOLN 0.5 MG/2.5 ML VIAL INHALATION ×4 (03:13→20:47)
[2022-02-02] MEDS: cefTRIAXone 2 GM in SODIUM CHLORIDE 0.9% IV 100 ML 200 ML IVPB (03:40)
[2022-02-02] MEDS: methylPREDNISolone SOD SUCC 125 MG VIAL 60 MG IV PUSH (05:32)
[2022-02-02] MEDS: hydrALAZINE HCL 20 MG/ML VIAL 10 MG IV PUSH (06:27)
[2022-02-02] MEDS: SERTRALINE HCL 50 MG TABLET PO (08:06)
[2022-02-02] MEDS: BENZTROPINE MESYLATE 0.5 MG TABLET PO ×2 (08:06→17:21)
[2022-02-02] MEDS: SERTRALINE HCL 25 MG TABLET PO (08:06)
[2022-02-02] MEDS: PANTOPRAZOLE 40 MG TABLET PO (08:06)
[2022-02-02] MEDS: NIFEdipine 30 MG TAB.ER.24 60 MG PO (08:07)
[2022-02-02] MEDS: HALOPERIDOL 5 MG TABLET PO ×2 (08:07→17:22)
[2022-02-02] MEDS: carBAMazepine 200 MG TABLET PO ×2 (08:07→17:21)
[2022-02-02] MEDS: GABAPENTIN 400 MG CAPSULE PO ×2 (08:07→17:21)
[2022-02-02] MEDS: FERROUS SULFATE 324 MG TABLET PO (08:07)
[2022-02-02] MEDS: DOCUSATE SODIUM 100 MG CAPSULE PO (08:07)
[2022-02-02] MEDS: carvediloL 3.125 MG TABLET PO ×2 (08:07→20:59)
[2022-02-02] MEDS: OLANZapine 5 MG TABLET 10 MG PO (08:08)
[2022-02-02] MEDS: cloNIDine HCL 0.1 MG TABLET 0.3 MG PO ×2 (08:08→20:59)
[2022-02-02] MEDS: ACETAMINOPHEN 500 MG TABLET 1000 MG PO ×2 (08:08→17:21)
[2022-02-02] MEDS: ARIPiprazole 10 MG TABLET 30 MG PO (08:08)
[2022-02-02] MEDS: DIVALPROEX SODIUM DR 250 MG TABEC 500 MG PO ×2 (08:08→17:21)
[2022-02-02] MEDS: hydrALAZINE HCL 50 MG TABLET 100 MG PO ×3 (08:08→17:22)
[2022-02-02] MEDS: FLUTICASONE/SALMETEROL 45-21 MCG INHALER 1 PUFF 2 PUFF INHALATION (08:47)
[2022-02-02] MEDS: ASPIRIN 81 MG ENTERIC TABLET PO (09:14)
--- NOTE | 2022-02-02 09:14 | PM.IMPN ---
Progress Note: A&P Assessment and Plan (1) Pneumonia: Code(s): J18.9 - Pneumonia, unspecified organism Status: Acute Assessment and Plan: Patient started on Rocephin and Zithromax Cultures in progress (2) Chronic respiratory failure with hypoxia and hypercapnia: Code(s): J96.11 - Chronic respiratory failure with hypoxia; J96.12 - Chronic respiratory failure with hypercapnia Status: Acute Assessment and Plan: On supplemental oxygen by nasal cannula Continue to monitor (3) NIGEL (obstructive sleep apnea): Code(s): G47.33 - Obstructive sleep apnea (adult) (pediatric) Status: Acute Assessment and Plan: Unclear if use of CPAP at nighttime (4) Gastroesophageal reflux disease: Code(s): K21.9 - Gastro-esophageal reflux disease without esophagitis Status: Acute Assessment and Plan: PPI as needed (5) Chronic obstructive pulmonary disease: Code(s): J44.9 - Chronic obstructive pulmonary disease, unspecified Status: Acute Assessment and Plan: Breathing treatments as needed Continue home meds (6) Right knee pain: Code(s): M25.561 - Pain in right knee Status: Acute Assessment and Plan: X-ray ordered Subjective Date/time seen: 02/02/22 09:14 Patient was seen during the morning rounds today. Patient has mild shortness of breath. No chest pain. No abdominal pain, nausea, no vomiting. Mood stable. Review of Systems Review of Systems: ROS unobtainable: Yes unobtainable due to mental status Exam Narrative: Patient is laying in a bed Const: General: comfortable, no acute distress, well developed, awake, patient obtunded and average body habitus Nutritional Appearance: average body habitus Orientation/consciousness: patient oriented x3 and patient obtunded HENMT: Head: normal to inspection, normocephalic and atraumatic Ears: hearing grossly normal bilaterally Face/Nose/Sinus: normal facial exam Face and sinus: normal facial exam Eyes: General: appearance normal, both eyes and all related structures Pupils: Equal, round and reactive pupils present EOM: EOMs intact bilaterally Neck: Neck: full ROM, no lymphadenopathy and no JVD Thyroid: thyroid normal Lymphatic: no lymphadenopathy noted Resp: Effort & Inspection: normal respiratory effort and able to speak in complete sentences Auscultation: clear to auscultation bilaterally Cardio: Jugular venous distension: no JVD Rate: regular rate Rhythm: regular rhythm Heart sounds: S1 normal heart sound present and S2 normal heart sound present : General: Yes deferred Skin: Rashes: no rashes Wounds: no wounds Neuro: General: patient oriented x3, CN's II-XI intact bilaterally, patient obtunded and Unable to assess gait Cranial nerves: Yes CN's II-XII intact bilaterally and Yes Equal, round and reactive pupils present Cognition (Neuro): abnormal cognition (Lethargy) Speech: normal speech Gait exam (Neuro): Unable to assess gait Motor exam (neuro): 5/5 motor strength present throughout Extrem: General: normal to inspection, full ROM, no joint enlargement and no pedal edema Objective Data Vital Signs Vital Signs: Vital Signs - 24 hr 02/01/22 18:42 02/01/22 19:30 02/01/22 21:26 Temperature 36.4 C L Pulse Rate 69 67 Respiratory Rate 20 16 Blood Pressure 179/92 H Pulse Oximetry 96 93 Oxygen Delivery Room Air Nasal Cannula Oxygen Flow Rate 3 02/01/22 22:31 02/01/22 23:00 02/01/22 23:13 Temperature Pulse Rate 70 74 Respiratory Rate 15 18 Blood Pressure 178/82 H Pulse Oximetry 92 85 L Oxygen Delivery Oxygen Flow Rate 02/01/22 23:17 02/02/22 00:56 02/02/22 04:21 Temperature 36.6 C 37.1 C Pulse Rate 71 84 Respiratory Rate 20 20 Blood Pressure 190/95 H 191/87 H Pulse Oximetry 85 L 98 99 Oxygen Delivery Oxygen Flow Rate 02/02/22 03:13 02/02/22 03:25 02/02/22 03:13 Temperature Pulse Rate 79 81 Respir
--- NOTE | 2022-02-02 09:18 | PM.CNPUL ---
Assessment and Plan Assessment and plan (1) Obesity hypoventilation syndrome: Code(s): E66.2 - Morbid (severe) obesity with alveolar hypoventilation Status: Acute Assessment and Plan: Regarding her OHS: Patient with morbid obesity, chronic hypoxemic respiratory failure on 3 L nasal cannula 24-7.? Patient has chronic hypercarbic respiratory failure dating back to blood gas on 01/13/2018 with a pH of 7.37/66/91.? Patient had a blood gas on 06/04/2018 with pH of 7.30/67/63.? On 09/10/2021 the patient had a blood gas of 7.34/73/82 and a serum bicarbonate of greater than 40.? She has minimal tobacco exposure at approximately 1 pack year and quit in 2002, no emphysema on CT scan of chest, no pulmonary embolism by CT angiogram and no interstitial lung disease with normal TSH on 05/23/2021.?The patient has obesity hypoventilation syndrome?with chronic hypercarbic respiratory failure and hypoxemic respiratory failure. Last hospitalization the patient was placed on BiPAP 16/5 and a blood gas at the end of the night was 7.46/52/62 and the patient was discharged with the settings. Unfortunately the patient is intolerant to BiPAP mask and right now is telling me that she cannot tolerate any BiPAP mask. Currently her blood gas on admission was 7.32/59/58 on room air with a serum bicarbonate of 35. This represents a compensated chronic respiratory acidosis and I do not believe this blood gas explains any altered mental status. Since the patient cannot tolerate BiPAP mask our goal will be to provide adequate oxygenation through the evening and I will obtain an overnight oximetry on 2 L nasal cannula tonight. (2) Asthma-COPD overlap syndrome: Code(s): J44.9 - Chronic obstructive pulmonary disease, unspecified Status: Acute Assessment and Plan: Patient with a history of childhood asthma, history of minimal tobacco use by her report (1 PY), no evidence of emphysema on her CT scan of the chest, PFTs on 10/31/2021 with FEV1 0.91, 58%, with bronchodilator response on PFTs 10/31/2021),?hypoxic respiratory failure on 3 L NC 11/09 at the half-way, pulmonary hypertension (Echo 09/11/2021 with PASP of 63 with normal RV size and function normal right atrial size). She was admitted with 2 weeks history of increasing phlegm that improved and is now at baseline, worsening shortness of breath 1 week off for inhaled medicine, and now she has no wheezing and says that she is breathing normally. She has no fever, no leukocytosis and no purulence secretions. Although she has minimal bibasilar infiltrates on her chest x-ray I am not convinced she has pneumonia. Agree with ceftriaxone and azithromycin until blood cultures are negative for 24 hours and then would discontinue. She has no wheezing on exam, no change in her phlegm production or color of the phlegm currently. She told me she was not taking her inhalers for a week. She feels better after being treated with Solu-Medrol and nebulized bronchodilators in the hospital. I am not convinced she has an asthma or COPD exacerbation and at this time I will continue nebulized albuterol at 2.5 mg q.4 hours, nebulized ipratropium at 0.5 mg q.4 hours and nebulized budesonide 500 mcg q.12 hours. I will discontinue the systemic steroids and follow her clinically. currently patient is on 2 L nasal cannula saturation 96%. I will check an overnight oximetry on 2 L nasal cannula. Of note the patient is on multiple medications that could cause altered mental status include: aripoprazole 30 Q am, benztropine 0.5 mg p.o. b.i.d., carbamazepine 200 BIDWM, clonidine 0.3 mg p.o. Q 12, divalproex 500 mg p.o. b.i.d.WM , gabapentin 400 mg p.o. t.i.d., Haldol 5 mg p.o. b.i.d., olanzapine 10 mg p.o. q.day sertraline 25 mg and 50 mg p.o. q.day, and trazodone 50 mg p.o. q.h.s. hospitalist team to consider simplification of this medical regimen. Will follow with you. History of Present Illness History of
[2022-02-02] MEDS: MICONAZOLE NITRATE 2% CREAM 30 GM TUBE 1 APPLIC TOPICAL ×2 (11:09→20:59)
[2022-02-02] MEDS: ALBUTEROL SULFATE NEB 2.5 MG/3 ML INH INHALATION ×2 (14:21→20:47)
[2022-02-02] MEDS: BUDESONIDE RESPULE NEB 0.5 MG/2 ML AMP INHALATION (20:47)
[2022-02-02] MEDS: ATORVASTATIN 20 MG TABLET PO (20:59)
[2022-02-02] MEDS: traZODone HCL 50 MG TABLET PO (20:59)
[2022-02-03] VITALS (26 sets, daily range): BP systolic 110–179; BP diastolic 52–87; PULSE 62–82; RESP 10–21; TEMP 36.1–37.1; O2SAT 92–99
--- NOTE | 2022-02-03 01:30 | PCRCNOTE ---
pt on sleep study. 0000 treatment ommited as to not disturb study.
[2022-02-03] MEDS: cefTRIAXone 2 GM in SODIUM CHLORIDE 0.9% IV 100 ML 200 ML IVPB (03:10)
[2022-02-03] MEDS: ALBUTEROL SULFATE NEB 2.5 MG/3 ML INH INHALATION ×6 (04:59→23:48)
[2022-02-03] MEDS: IPRATROPIUM BR 0.02% INH SOLN 0.5 MG/2.5 ML VIAL INHALATION ×6 (04:59→23:48)
[2022-02-03 05:32] LABS: Hematocrit 35.6 % (37.0-47.0); Hemoglobin 11.4 g/dL (12.0-15.0); Mean Platelet Volume 10.9 fl (7.4-10.4); Platelet Count Result 165 k/mm3 (150-375); Red Blood Count 3.56 M/mm3 (4.2-5.4); Red Cell Distribution Width 13.7 % (11.5-14.5); White Blood Count 4.7 K/mm3 (4.5-10.0)
[2022-02-03 05:37] LABS: Alveolar/Arterial O2 Gradient 33.6 mmHg; Base Excess ABG 8.3 mEq/l (+/-2.0); Fractional Inspired Oxygen 28 %; HCO3 ABG 36.4 mEq/l (22.0-26.0); Oxygen Content ABG 16.1 %vol (16.0-22.0); Oxygen Saturation ABG 95.3 % (95.0-100.0); Oxyhemoglobin 94.3 % THb (90.0-100.0); Total Hemoglobin 12.1 g/dL (12.0-18.0); pH ABG 7.337 (7.350-7.450)
[2022-02-03 05:38] LABS: Device NASAL CANNULA; Modified Allen's Test Unable to perform; PCO2 ABG 69.5 mmHg (35.0-45.0); Site Drawn RIGHT RADIAL
[2022-02-03 05:47] LABS: Alanine Aminotransferase 10 U/L (6-35); Albumin Level 3.5 g/dL (3.5-5.1); Alkaline Phosphatase 46 U/L (38-126); Anion Gap 4 mmol/L (8-16); Aspartate Amino Transferase 16 U/L (14-36); Bilirubin,Total 0.2 mg/dL (0.2-1.3); Blood Urea Nitrogen 34 mg/dL (7-17); Calcium 8.1 mg/dL (8.4-10.2); Carbon Dioxide 33 mmol/L (22-30); Chloride 98 mmol/L (98-107); Estimated CRCL calculation 36 ml/min; Estimated Glomerular Filt Rate 49; Glucose 106 mg/dL (65-110); Potassium 3.4 mmol/L (3.4-5.0); Sodium 135 mmol/L (137-145)
[2022-02-03] MEDS: BENZTROPINE MESYLATE 0.5 MG TABLET PO ×2 (08:12→16:44)
[2022-02-03] MEDS: HALOPERIDOL 5 MG TABLET PO ×2 (08:13→16:45)
[2022-02-03] MEDS: SERTRALINE HCL 25 MG TABLET PO (08:13)
[2022-02-03] MEDS: GABAPENTIN 400 MG CAPSULE PO ×2 (08:13→16:44)
[2022-02-03] MEDS: cloNIDine HCL 0.1 MG TABLET 0.3 MG PO ×2 (08:13→21:50)
[2022-02-03] MEDS: ACETAMINOPHEN 500 MG TABLET 1000 MG PO ×2 (08:13→16:45)
[2022-02-03] MEDS: NIFEdipine 30 MG TAB.ER.24 60 MG PO (08:14)
[2022-02-03] MEDS: DOCUSATE SODIUM 100 MG CAPSULE PO (08:14)
[2022-02-03] MEDS: hydrALAZINE HCL 50 MG TABLET 100 MG PO ×3 (08:14→16:44)
[2022-02-03] MEDS: OLANZapine 5 MG TABLET 10 MG PO (08:14)
[2022-02-03] MEDS: FERROUS SULFATE 324 MG TABLET PO (08:14)
[2022-02-03] MEDS: ARIPiprazole 10 MG TABLET 30 MG PO (08:14)
[2022-02-03] MEDS: SERTRALINE HCL 50 MG TABLET PO (08:15)
[2022-02-03] MEDS: carvediloL 3.125 MG TABLET PO ×2 (08:15→21:49)
[2022-02-03] MEDS: PANTOPRAZOLE 40 MG TABLET PO (08:15)
[2022-02-03] MEDS: DIVALPROEX SODIUM DR 250 MG TABEC 500 MG PO ×2 (08:16→16:44)
[2022-02-03] MEDS: carBAMazepine 200 MG TABLET PO ×2 (08:16→16:45)
[2022-02-03] MEDS: ASPIRIN 81 MG ENTERIC TABLET PO (08:17)
[2022-02-03] MEDS: MICONAZOLE NITRATE 2% CREAM 30 GM TUBE 1 APPLIC TOPICAL ×2 (08:26→21:48)
[2022-02-03] MEDS: polyethylene glycoL 3350 17 GM POWD.PACK PO (08:26)
[2022-02-03] MEDS: ENOXAPARIN 40 MG/0.4 ML SYRINGE SUB-Q (08:26)
[2022-02-03] MEDS: BUDESONIDE RESPULE NEB 0.5 MG/2 ML AMP INHALATION ×2 (09:12→21:41)
--- NOTE | 2022-02-03 10:17 | PCPTNOTE ---
Attempted PT evaluation, pt too drowsy to participate in skilled therapy. RN made aware of pt's drowsiness. Will follow
--- NOTE | 2022-02-03 12:06 | PM.PNPUL ---
Progress Note: A&P Assessment and Plan (1) Obesity hypoventilation syndrome: Code(s): E66.2 - Morbid (severe) obesity with alveolar hypoventilation Status: Acute Assessment and Plan: 71-year-old female with a history of psychiatric illness on multiple medications, also history of chronic hypoxemic hypercapnic respiratory failure probably related to obesity hypo ventilation syndrome with previous elevation of pulmonary artery systolic pressure on echocardiogram presented with confusion. Patient has been refusing treatment with noninvasive ventilatory support. respiratory status has improved over the last 24 hours. Currently the patient is fully alert oriented x3. Physical exam showed clear lungs. Plan: continue to monitor respiratory status. Out of bed to chair. Repeat blood gases today. Repeat testing for RSV, Influenza. (2) Hypoxia: Code(s): R09.02 - Hypoxemia Status: Acute (3) Hypercarbia: Code(s): R06.89 - Other abnormalities of breathing Status: Acute (4) Chronic respiratory failure with hypoxia and hypercapnia: Code(s): J96.11 - Chronic respiratory failure with hypoxia; J96.12 - Chronic respiratory failure with hypercapnia Status: Acute (5) Type 2 diabetes mellitus: Code(s): E11.9 - Type 2 diabetes mellitus without complications Status: Acute (6) Schizophrenia: Qualifiers: Schizophrenia type: unspecified Qualified Code(s): F20.9 - Schizophrenia, unspecified Code(s): F20.9 - Schizophrenia, unspecified Status: Chronic Subjective Date/time seen: 02/03/22 12:06 71-year-old female with history of obesity, chronic hypoxemic hypercapnic respiratory failure likely related to obesity hypoventilation, history of elevated pulmonary artery systolic pressure on last echocardiogram, history of psychiatric illness on multiple medications, [facility] resident, presented with a 1 day history of confusion. She was found to have acute on chronic hypercapnic respiratory failure, no evidence of pneumonia on chest x-ray. Patient refusing treatment with BiPAP. Currently she is fully awake oriented. She stated that her breathing is better. She has chest on supplemental oxygen. Past medical history is also significant for asthma. Review of Systems Review of Systems: All system review is negative except as noted in HPI and below. Exam Narrative: GENERAL APPEARANCE: Well developed, well nourished, alert and cooperative, and appears to be in no acute distress while on supplemental oxygen via nasal cannula SKIN: Inspection of the skin reveals no rashes, ulcerations or petechiae. HEENT: Sclerae anicteric and conjunctivae pink and moist. Extraocular movements were intact and pupils were equal, round. The oral mucosa, hard and soft palate, tongue and posterior pharynx were normal. NECK: Supple. There was no thyroid enlargement, and no tenderness, or masses were felt. LUNGS: Auscultation of the lungs revealed normal breath sounds without any other adventitious sounds or rubs. CARDIAC: There was a regular rate and rhythm without any murmurs, gallops, rubs. ABDOMEN: Soft and nontender with normal bowel sounds. LYMPH NODES: No lymphadenopathy was appreciated in the neck EXTREMITIES: No cyanosis, clubbing or edema. NEUROLOGIC: Alert and oriented x 3. Objective Data Vital Signs Vital Signs: Vital Signs - 24 hr 02/02/22 14:17 02/02/22 14:27 02/02/22 16:00 Temperature 37.1 C Pulse Rate 82 87 77 Respiratory Rate 18 18 16 Blood Pressure 113/54 L Pulse Oximetry 98 Oxygen Delivery Oxygen Flow Rate 02/02/22 16:00 02/02/22 16:00 02/02/22 18:00 Temperature Pulse Rate 81 78 Respiratory Rate Blood Pressure Pulse Oximetry 93 Oxygen Delivery Nasal Cannula Oxygen Flow Rate 3 02/02/22 20:50 02/02/22 20:50 02/02/22 20:59 Temperature Pulse Rate 77 78 Respiratory Rate 16 Blood Pressure Pulse Oximet
[2022-02-03 14:50] LABS: Alveolar/Arterial O2 Gradient 4.2 mmHg; Base Excess ABG 7.1 mEq/l (+/-2.0); Fractional Inspired Oxygen 24 %; HCO3 ABG 35.6 mEq/l (22.0-26.0); Oxygen Content ABG 17.5 %vol (16.0-22.0); Oxygen Saturation ABG 96.2 % (95.0-100.0); Oxyhemoglobin 95.4 % THb (90.0-100.0); PO2 ABG 92.4 mmHg (80.0-100.0); PO2 FiO2 Ratio Arterial Blood 3.85 %; pH ABG 7.319 (7.350-7.450)
[2022-02-03 14:54] LABS: PCO2 ABG 70.9 mmHg (35.0-45.0)
[2022-02-03 14:55] LABS: Device NASAL CANNULA; Modified Allen's Test Pass; Site Drawn RIGHT RADIAL
[2022-02-03 16:35] LABS: Influenza A QL RT-PCR Negative (Negative); Influenza B QL RT-PCR Negative (Negative); RSV RNA, RT-PCR Negative (Negative); SARS-CoV-2 RNA PCR Negative
--- NOTE | 2022-02-03 16:42 | PM.IMPN ---
Progress Note: A&P Assessment and Plan (1) Pneumonia: Code(s): J18.9 - Pneumonia, unspecified organism Status: Acute Assessment and Plan: Patient started on Rocephin and Zithromax blood culture negative so far (2) Chronic respiratory failure with hypoxia and hypercapnia: Code(s): J96.11 - Chronic respiratory failure with hypoxia; J96.12 - Chronic respiratory failure with hypercapnia Status: Acute Assessment and Plan: On supplemental oxygen by nasal cannula Continue to monitor (3) NIGEL (obstructive sleep apnea): Code(s): G47.33 - Obstructive sleep apnea (adult) (pediatric) Status: Acute Assessment and Plan: Unclear if use of CPAP at nighttime (4) Gastroesophageal reflux disease: Code(s): K21.9 - Gastro-esophageal reflux disease without esophagitis Status: Acute Assessment and Plan: PPI as needed (5) Chronic obstructive pulmonary disease: Code(s): J44.9 - Chronic obstructive pulmonary disease, unspecified Status: Acute Assessment and Plan: Breathing treatments as needed Continue home meds (6) Right knee pain: Code(s): M25.561 - Pain in right knee Status: Acute Assessment and Plan: X-ray ordered (7) Respiratory failure with hypercapnia: Code(s): J96.92 - Respiratory failure, unspecified with hypercapnia Status: Acute Assessment and Plan: Abg showed worsening PCO2 with worsening pH BiPAP needed, patient at risk of intubation however still adamantly declines biPAP (8) Respiratory acidosis: Code(s): E87.29 - Other acidosis Status: Acute Assessment and Plan: repeat ABg showed worsening pH and PCO2 If patient continues to decline BiPAP we will be left with the only option of ICU transfer for Intubation. Pulmonology following Subjective Date/time seen: 02/03/22 16:42 Seen and examined at bedside, denies any chest pain, SOB, or abd pain and no vomiting. Firmly rejects BIPAP. Review of Systems Review of Systems: ROS unobtainable: Yes unobtainable due to mental status Exam Narrative: Patient is laying in a bed Const: General: comfortable, no acute distress, well developed, awake, patient obtunded and average body habitus Nutritional Appearance: average body habitus Orientation/consciousness: patient oriented x3 and patient obtunded HENMT: Head: normal to inspection, normocephalic and atraumatic Ears: hearing grossly normal bilaterally Face/Nose/Sinus: normal facial exam Face and sinus: normal facial exam Eyes: General: appearance normal, both eyes and all related structures Pupils: Equal, round and reactive pupils present EOM: EOMs intact bilaterally Neck: Neck: full ROM, no lymphadenopathy and no JVD Thyroid: thyroid normal Lymphatic: no lymphadenopathy noted Resp: Effort & Inspection: normal respiratory effort and able to speak in complete sentences Auscultation: clear to auscultation bilaterally Cardio: Jugular venous distension: no JVD Rate: regular rate Rhythm: regular rhythm Heart sounds: S1 normal heart sound present and S2 normal heart sound present : General: Yes deferred Skin: Rashes: no rashes Wounds: no wounds Neuro: General: patient oriented x3, CN's II-XI intact bilaterally, patient obtunded and Unable to assess gait Cranial nerves: Yes CN's II-XII intact bilaterally and Yes Equal, round and reactive pupils present Cognition (Neuro): abnormal cognition (Lethargy) Speech: normal speech Gait exam (Neuro): Unable to assess gait Motor exam (neuro): 5/5 motor strength present throughout Extrem: General: normal to inspection, full ROM, no joint enlargement and no pedal edema Objective Data Vital Signs Vital Signs: Vital Signs - 24 hr 02/02/22 18:00 02/02/22 20:50 02/02/22 20:50 Temperature Pulse Rate 78 77 Respiratory Rate 16 Blood Pressure Pulse Oximetry 91 Oxygen Delivery Room Air Oxygen Flow Rate Fr
[2022-02-03] MEDS: ATORVASTATIN 20 MG TABLET PO (21:49)
[2022-02-03] MEDS: traZODone HCL 50 MG TABLET PO (21:50)
[2022-02-04] VITALS (25 sets, daily range): BP systolic 112–177; BP diastolic 61–91; PULSE 61–82; RESP 14–20; TEMP 36.4–37.1; O2SAT 93–100
[2022-02-04] MEDS: ALBUTEROL SULFATE NEB 2.5 MG/3 ML INH INHALATION ×5 (03:00→22:29)
[2022-02-04] MEDS: IPRATROPIUM BR 0.02% INH SOLN 0.5 MG/2.5 ML VIAL INHALATION ×5 (03:01→22:29)
[2022-02-04] MEDS: cefTRIAXone 2 GM in SODIUM CHLORIDE 0.9% IV 100 ML 200 ML IVPB (03:45)
[2022-02-04 05:45] LABS: Alveolar/Arterial O2 Gradient 71.1 mmHg; Base Excess ABG 6.1 mEq/l (+/-2.0); Fractional Inspired Oxygen 30 %; HCO3 ABG 33.5 mEq/l (22.0-26.0); Oxygen Content ABG 16.2 %vol (16.0-22.0); Oxygen Saturation ABG 92.6 % (95.0-100.0); Oxyhemoglobin 91.7 % THb (90.0-100.0); PO2 ABG 69.4 mmHg (80.0-100.0); PO2 FiO2 Ratio Arterial Blood 2.31 %; Total Hemoglobin 12.5 g/dL (12.0-18.0); pH ABG 7.347 (7.350-7.450)
[2022-02-04 05:48] LABS: Device BIPAP; Modified Allen's Test Pass; PCO2 ABG 62.5 mmHg (35.0-45.0); Site Drawn RIGHT RADIAL
[2022-02-04 05:49] LABS: Expiratory Pressure 4 cmH2O; Inspiratory Pressure 8 cmH2O
[2022-02-04] MEDS: BUDESONIDE RESPULE NEB 0.5 MG/2 ML AMP INHALATION ×2 (08:08→22:29)
--- NOTE | 2022-02-04 08:52 | PCPTNOTE ---
Attempted PT evaluation, pt getting breathing treatment.
[2022-02-04] MEDS: polyethylene glycoL 3350 17 GM POWD.PACK PO (10:47)
[2022-02-04] MEDS: HALOPERIDOL 5 MG TABLET PO ×2 (10:48→18:23)
[2022-02-04] MEDS: NIFEdipine 30 MG TAB.ER.24 60 MG PO (10:48)
[2022-02-04] MEDS: BENZTROPINE MESYLATE 0.5 MG TABLET PO ×2 (10:48→18:24)
[2022-02-04] MEDS: hydrALAZINE HCL 50 MG TABLET 100 MG PO ×3 (10:48→18:23)
[2022-02-04] MEDS: ASPIRIN 81 MG ENTERIC TABLET PO (10:49)
[2022-02-04] MEDS: cloNIDine HCL 0.1 MG TABLET 0.3 MG PO ×2 (10:49→20:28)
[2022-02-04] MEDS: ACETAMINOPHEN 500 MG TABLET 1000 MG PO ×2 (10:49→18:23)
[2022-02-04] MEDS: DOCUSATE SODIUM 100 MG CAPSULE PO (10:49)
[2022-02-04] MEDS: ARIPiprazole 10 MG TABLET 30 MG PO (10:49)
[2022-02-04] MEDS: FERROUS SULFATE 324 MG TABLET PO (10:49)
[2022-02-04] MEDS: SERTRALINE HCL 50 MG TABLET PO (10:50)
[2022-02-04] MEDS: carvediloL 3.125 MG TABLET PO ×2 (10:50→20:28)
[2022-02-04] MEDS: GABAPENTIN 400 MG CAPSULE PO ×3 (10:50→18:23)
[2022-02-04] MEDS: carBAMazepine 200 MG TABLET PO ×2 (10:50→18:23)
[2022-02-04] MEDS: PANTOPRAZOLE 40 MG TABLET PO (10:51)
[2022-02-04] MEDS: SERTRALINE HCL 25 MG TABLET PO (10:51)
[2022-02-04] MEDS: OLANZapine 5 MG TABLET 10 MG PO (10:51)
[2022-02-04] MEDS: ENOXAPARIN 40 MG/0.4 ML SYRINGE SUB-Q (10:51)
[2022-02-04] MEDS: DIVALPROEX SODIUM DR 250 MG TABEC 500 MG PO ×2 (10:52→18:24)
[2022-02-04] MEDS: MICONAZOLE NITRATE 2% CREAM 30 GM TUBE 1 APPLIC TOPICAL ×2 (10:52→20:31)
--- NOTE | 2022-02-04 11:40 | PM.PNPUL ---
Progress Note: A&P Assessment and Plan (1) Obesity hypoventilation syndrome: Code(s): E66.2 - Morbid (severe) obesity with alveolar hypoventilation Status: Acute Assessment and Plan: 71-year-old female with a history of psychiatric illness on multiple medications, also history of chronic hypoxemic hypercapnic respiratory failure probably related to obesity hypo ventilation syndrome with previous elevation of pulmonary artery systolic pressure on echocardiogram presented with confusion. Patient has been refusing treatment with noninvasive ventilatory support. she finally agreed to start BiPAP support last night. Blood gases this a.m. showed improvement of hypercapnic respiratory acidosis. Patient is willing to continue with BiPAP support again at night and p.r.n. during the day. serum creatinine higher this a.m. Plan: Out of bed to chair. BiPAP support at night and also p.r.n. during the day. (2) Hypoxia: Code(s): R09.02 - Hypoxemia Status: Acute (3) Hypercarbia: Code(s): R06.89 - Other abnormalities of breathing Status: Acute (4) Chronic respiratory failure with hypoxia and hypercapnia: Code(s): J96.11 - Chronic respiratory failure with hypoxia; J96.12 - Chronic respiratory failure with hypercapnia Status: Acute (5) Type 2 diabetes mellitus: Code(s): E11.9 - Type 2 diabetes mellitus without complications Status: Acute (6) Schizophrenia: Qualifiers: Schizophrenia type: unspecified Qualified Code(s): F20.9 - Schizophrenia, unspecified Code(s): F20.9 - Schizophrenia, unspecified Status: Chronic Subjective Date/time seen: 02/04/22 11:40 patient has no new respiratory symptoms. She finally agreed to start a BiPAP treatment yesterday. She was started on low pressure BiPAP support as she had difficulty getting use to high pressures. She tolerated BiPAP 10/4 and kept the BiPAP on throughout the night. She is fully alert this morning. Review of Systems Review of Systems: All system review is negative except as noted in HPI and below. Exam Narrative: GENERAL APPEARANCE: Well developed, well nourished, alert and cooperative, and appears to be in no acute distress while on supplemental oxygen via nasal cannula SKIN: Inspection of the skin reveals no rashes, ulcerations or petechiae. HEENT: Sclerae anicteric and conjunctivae pink and moist. Extraocular movements were intact and pupils were equal, round. The oral mucosa, hard and soft palate, tongue and posterior pharynx were normal. NECK: Supple. There was no thyroid enlargement, and no tenderness, or masses were felt. LUNGS: Auscultation of the lungs revealed normal breath sounds without any other adventitious sounds or rubs. CARDIAC: There was a regular rate and rhythm without any murmurs, gallops, rubs. ABDOMEN: Soft and nontender with normal bowel sounds. LYMPH NODES: No lymphadenopathy was appreciated in the neck EXTREMITIES: No cyanosis, clubbing or edema. NEUROLOGIC: Alert and oriented x 3. Objective Data Vital Signs Vital Signs: Vital Signs - 24 hr 02/03/22 12:05 02/03/22 12:00 02/03/22 12:00 Temperature Pulse Rate 67 70 Respiratory Rate 20 Blood Pressure Pulse Oximetry 97 Oxygen Delivery Nasal Cannula Oxygen Flow Rate 1 Fraction of Inspired Oxygen 02/03/22 12:18 02/03/22 12:00 02/03/22 15:47 Temperature 36.1 C L Pulse Rate 62 70 67 Respiratory Rate 20 15 20 Blood Pressure 139/71 Pulse Oximetry 97 95 Oxygen Delivery BiPAP Oxygen Flow Rate Fraction of Inspired Oxygen 02/03/22 15:50 02/03/22 16:07 02/03/22 16:00 Temperature Pulse Rate 68 65 Respiratory Rate 20 20 Blood Pressure Pulse Oximetry 95 Oxygen Delivery BiPAP Oxygen Flow Rate Fraction of Inspired Oxygen 35 02/03/22 16:00 02/03/22 14:00 02/03/22 16:00 Temperature 36.8 C Pulse Rate 65 63 64 Respiratory Rate 20 Blood Pressur
--- NOTE | 2022-02-04 18:51 | PM.IMPN ---
Progress Note: A&P Assessment and Plan (1) Pneumonia: Code(s): J18.9 - Pneumonia, unspecified organism Status: Acute Assessment and Plan: Patient started on Rocephin and Zithromax blood culture negative so far (2) Chronic respiratory failure with hypoxia and hypercapnia: Code(s): J96.11 - Chronic respiratory failure with hypoxia; J96.12 - Chronic respiratory failure with hypercapnia Status: Acute Assessment and Plan: Now on BiPAP hypercapnea and acidosis improving continue monitoring ] Appreciate help from pulmonology (3) NIGEL (obstructive sleep apnea): Code(s): G47.33 - Obstructive sleep apnea (adult) (pediatric) Status: Acute Assessment and Plan: Encouraged to continue using BiPAP (4) Gastroesophageal reflux disease: Code(s): K21.9 - Gastro-esophageal reflux disease without esophagitis Status: Acute Assessment and Plan: PPI as needed (5) Chronic obstructive pulmonary disease: Code(s): J44.9 - Chronic obstructive pulmonary disease, unspecified Status: Acute Assessment and Plan: Breathing treatments as needed Continue home meds (6) Right knee pain: Code(s): M25.561 - Pain in right knee Status: Acute Assessment and Plan: X-ray ordered (7) Respiratory failure with hypercapnia: Code(s): J96.92 - Respiratory failure, unspecified with hypercapnia Status: Acute Assessment and Plan: Abg showed worsening PCO2 with worsening pH BiPAP needed, patient at risk of intubation however still adamantly declines biPAP (8) Respiratory acidosis: Code(s): E87.29 - Other acidosis Status: Acute Assessment and Plan: repeat ABg showed worsening pH and PCO2 finally agreed using BiPAP and improvement noted clinically and on labs Pulmonology following Subjective Date/time seen: 02/04/22 18:51 Review of Systems Review of Systems: Seen at bedside this mornign, noted marked improvement with use of BiPAP, denies any abd pain, diarrhea, focal weakness and no chest pain. Patient will likely discharge on BiPAP All other systems reviewed adn negative except as noted above Exam Narrative: Patient is laying in a bed Const: General: comfortable, no acute distress, well developed, awake, patient obtunded and average body habitus Nutritional Appearance: average body habitus Orientation/consciousness: patient oriented x3 and patient obtunded HENMT: Head: normal to inspection, normocephalic and atraumatic Ears: hearing grossly normal bilaterally Face/Nose/Sinus: normal facial exam Face and sinus: normal facial exam Eyes: General: appearance normal, both eyes and all related structures Pupils: Equal, round and reactive pupils present EOM: EOMs intact bilaterally Neck: Neck: full ROM, no lymphadenopathy and no JVD Thyroid: thyroid normal Lymphatic: no lymphadenopathy noted Resp: Effort & Inspection: normal respiratory effort and able to speak in complete sentences Auscultation: clear to auscultation bilaterally Cardio: Jugular venous distension: no JVD Rate: regular rate Rhythm: regular rhythm Heart sounds: S1 normal heart sound present and S2 normal heart sound present : General: Yes deferred Skin: Rashes: no rashes Wounds: no wounds Neuro: General: patient oriented x3, CN's II-XI intact bilaterally, patient obtunded and Unable to assess gait Cranial nerves: Yes CN's II-XII intact bilaterally and Yes Equal, round and reactive pupils present Cognition (Neuro): abnormal cognition (Lethargy) Speech: normal speech Gait exam (Neuro): Unable to assess gait Motor exam (neuro): 5/5 motor strength present throughout Extrem: General: normal to inspection, full ROM, no joint enlargement and no pedal edema Objective Data Vital Signs Vital Signs: Vital Signs - 24 hr 02/03/22 20:00 02/03/22 21:41 02/03/22 21:41 Temperature 97.7 F Pulse Rate 69 71 71 Respirator
[2022-02-04] MEDS: ATORVASTATIN 20 MG TABLET PO (20:27)
[2022-02-04] MEDS: traZODone HCL 50 MG TABLET PO (20:29)
[2022-02-04] MEDS: HYDROcodone/acetaminophen (*CRX) 5-325 MG TABLET 1 TAB PO (20:36)
[2022-02-05] VITALS (23 sets, daily range): BP systolic 115–163; BP diastolic 57–77; PULSE 60–108; RESP 14–22; TEMP 36.4–36.9; O2SAT 87–100
--- NOTE | 2022-02-05 02:09 | PCRCNOTE ---
0000 updraft treatment not given due to the last treatment being given at 22:29. Next treatment will be administered at 0300.
[2022-02-05] MEDS: cefTRIAXone 2 GM in SODIUM CHLORIDE 0.9% IV 100 ML IVPB (03:06)
[2022-02-05] MEDS: ALBUTEROL SULFATE NEB 2.5 MG/3 ML INH INHALATION ×5 (03:30→20:06)
[2022-02-05] MEDS: IPRATROPIUM BR 0.02% INH SOLN 0.5 MG/2.5 ML VIAL INHALATION ×5 (03:30→20:06)
[2022-02-05 05:18] LABS: Basophils Percent Auto 0.9 % (0.2-1.2); Eosinophils Absolute Auto 0.2 K/mm3 (0-0.3); Eosinophils Percent Auto 4.7 % (0-4.4); Hemoglobin 11.2 g/dL (12.0-15.0); Immature Granulocyte Absolute 0.01 K/mm3 (0.00-0.031); Immature Granulocyte Percent A 0.3 % (0-0.5); Lymphocytes Absolute Auto 1.23 K/mm3 (0.9-3.2); Lymphocytes Percent Auto 36.5 % (18.3-44.2); Mean Corpuscular Hemoglobin 32.1 pg (26-34); Mean Corpuscular Volume 100.3 fl (80-100); Monocytes Absolute Auto 0.6 K/mm3 (0.1-0.6); Monocytes Percent Auto 16.6 % (2.6-8.5); Neutrophils Absolute Auto 1.4 K/mm3 (1.3-6.7); Platelet Count Result 142 k/mm3 (150-375); Red Blood Count 3.49 M/mm3 (4.2-5.4); Red Cell Distribution Width 13.1 % (11.5-14.5); White Blood Count 3.4 K/mm3 (4.5-10.0)
[2022-02-05 05:23] LABS: Chloride 102 mmol/L (98-107)
[2022-02-05 05:27] LABS: Alanine Aminotransferase 11 U/L (6-35); Albumin Level 3.4 g/dL (3.5-5.1); Alkaline Phosphatase 53 U/L (38-126); Anion Gap 2 mmol/L (8-16); Aspartate Amino Transferase 15 U/L (14-36); Bilirubin,Total 0.2 mg/dL (0.2-1.3); Blood Urea Nitrogen 22 mg/dL (7-17); Calcium 8.3 mg/dL (8.4-10.2); Carbon Dioxide 36 mmol/L (22-30); Estimated CRCL calculation 65 ml/min; Estimated Glomerular Filt Rate > 60; Glucose 87 mg/dL (65-110); Potassium 3.7 mmol/L (3.4-5.0); Sodium 140 mmol/L (137-145)
[2022-02-05] MEDS: BUDESONIDE RESPULE NEB 0.5 MG/2 ML AMP INHALATION ×2 (09:14→20:06)
[2022-02-05] MEDS: ENOXAPARIN 40 MG/0.4 ML SYRINGE SUB-Q (09:46)
[2022-02-05] MEDS: hydrALAZINE HCL 50 MG TABLET 100 MG PO ×3 (09:47→17:23)
[2022-02-05] MEDS: ASPIRIN 81 MG ENTERIC TABLET PO (09:47)
[2022-02-05] MEDS: cloNIDine HCL 0.1 MG TABLET 0.3 MG PO ×2 (09:47→21:09)
[2022-02-05] MEDS: GABAPENTIN 400 MG CAPSULE PO ×3 (09:47→17:25)
[2022-02-05] MEDS: carBAMazepine 200 MG TABLET PO ×2 (09:47→17:25)
[2022-02-05] MEDS: ACETAMINOPHEN 500 MG TABLET 1000 MG PO ×2 (09:48→17:25)
[2022-02-05] MEDS: AZITHROMYCIN 250 MG TABLET 500 MG PO (09:48)
[2022-02-05] MEDS: FERROUS SULFATE 324 MG TABLET PO (09:48)
[2022-02-05] MEDS: ARIPiprazole 10 MG TABLET 30 MG PO (09:48)
[2022-02-05] MEDS: SERTRALINE HCL 50 MG TABLET PO (09:48)
[2022-02-05] MEDS: DOCUSATE SODIUM 100 MG CAPSULE PO (09:48)
[2022-02-05] MEDS: NIFEdipine 30 MG TAB.ER.24 60 MG PO (09:49)
[2022-02-05] MEDS: SERTRALINE HCL 25 MG TABLET PO (09:49)
[2022-02-05] MEDS: BENZTROPINE MESYLATE 0.5 MG TABLET PO ×2 (09:49→17:25)
[2022-02-05] MEDS: HALOPERIDOL 5 MG TABLET PO ×2 (09:49→17:25)
[2022-02-05] MEDS: OLANZapine 5 MG TABLET 10 MG PO (09:49)
[2022-02-05] MEDS: carvediloL 3.125 MG TABLET PO ×2 (09:49→21:09)
[2022-02-05] MEDS: MICONAZOLE NITRATE 2% CREAM 30 GM TUBE 1 APPLIC TOPICAL ×2 (09:49→21:09)
[2022-02-05] MEDS: PANTOPRAZOLE 40 MG TABLET PO (09:49)
[2022-02-05] MEDS: DIVALPROEX SODIUM DR 250 MG TABEC 500 MG PO ×2 (09:50→17:25)
--- NOTE | 2022-02-05 10:53 | PM.PNPUL ---
Progress Note: A&P Assessment and Plan (1) Obesity hypoventilation syndrome: Code(s): E66.2 - Morbid (severe) obesity with alveolar hypoventilation Status: Acute Assessment and Plan: 71-year-old female with a history of psychiatric illness on multiple medications, also history of chronic hypoxemic hypercapnic respiratory failure probably related to obesity hypo ventilation syndrome with previous elevation of pulmonary artery systolic pressure on echocardiogram presented with confusion. Patient has been refusing treatment with noninvasive ventilatory support. she finally agreed to start BiPAP support two days ago. After using BiPAP support for 1 night blood gases showed some improvement of hypercapnic respiratory failure. She again did not use BiPAP support last night. She is fully alert this a.m.. She will try BiPAP support tonight. Plan: Out of bed to chair. BiPAP support at night and also p.r.n. during the day. Will repeat blood gases today. (2) Hypoxia: Code(s): R09.02 - Hypoxemia Status: Acute (3) Hypercarbia: Code(s): R06.89 - Other abnormalities of breathing Status: Acute (4) Chronic respiratory failure with hypoxia and hypercapnia: Code(s): J96.11 - Chronic respiratory failure with hypoxia; J96.12 - Chronic respiratory failure with hypercapnia Status: Acute (5) Type 2 diabetes mellitus: Code(s): E11.9 - Type 2 diabetes mellitus without complications Status: Acute (6) Schizophrenia: Qualifiers: Schizophrenia type: unspecified Qualified Code(s): F20.9 - Schizophrenia, unspecified Code(s): F20.9 - Schizophrenia, unspecified Status: Chronic Subjective Date/time seen: 02/05/22 10:53 Patient has no new respiratory symptoms. She did not use BiPAP support last night. Out of bed sitting in chair this a.m. no shortness of breath. Review of Systems Review of Systems: All system review is negative except as noted in HPI and below. Exam Narrative: GENERAL APPEARANCE: Well developed, well nourished, alert and cooperative, and appears to be in no acute distress while on supplemental oxygen via nasal cannula SKIN: Inspection of the skin reveals no rashes, ulcerations or petechiae. HEENT: Sclerae anicteric and conjunctivae pink and moist. Extraocular movements were intact and pupils were equal, round. The oral mucosa, hard and soft palate, tongue and posterior pharynx were normal. NECK: Supple. There was no thyroid enlargement, and no tenderness, or masses were felt. LUNGS: Auscultation of the lungs revealed normal breath sounds without any other adventitious sounds or rubs. CARDIAC: There was a regular rate and rhythm without any murmurs, gallops, rubs. ABDOMEN: Soft and nontender with normal bowel sounds. LYMPH NODES: No lymphadenopathy was appreciated in the neck EXTREMITIES: No cyanosis, clubbing or edema. NEUROLOGIC: Alert and oriented x 3. Objective Data Vital Signs Vital Signs: Vital Signs - 24 hr 02/04/22 10:59 02/04/22 12:00 02/04/22 13:06 Temperature 36.6 C Pulse Rate 72 70 Respiratory Rate 16 Blood Pressure 177/91 H Pulse Oximetry 100 Oxygen Delivery Nasal Cannula Oxygen Flow Rate 2 02/04/22 12:00 02/04/22 12:00 02/04/22 14:00 Temperature Pulse Rate 77 81 Respiratory Rate Blood Pressure Pulse Oximetry 100 Oxygen Delivery Nasal Cannula Oxygen Flow Rate 2 02/04/22 15:38 02/04/22 15:47 02/04/22 16:00 Temperature Pulse Rate 75 76 76 Respiratory Rate 20 18 Blood Pressure Pulse Oximetry Oxygen Delivery Oxygen Flow Rate 02/04/22 16:00 02/04/22 16:00 02/04/22 18:00 Temperature 36.4 C Pulse Rate 74 Respiratory Rate 14 Blood Pressure 136/68 Pulse Oximetry 97 97 Oxygen Delivery Nasal Cannula Oxygen Flow Rate 2 02/04/22 20:28 02/04/22 20:00 02/04/22 20:00 Temperature 36.4 C Pulse Rate 68 66 Respiratory Rate 20 B
[2022-02-05 12:24] LABS: Alveolar/Arterial O2 Gradient 53.5 mmHg; Base Excess ABG 8.6 mEq/l (+/-2.0); Fractional Inspired Oxygen 28 %; HCO3 ABG 36.9 mEq/l (22.0-26.0); Oxygen Content ABG 15.8 %vol (16.0-22.0); Oxygen Saturation ABG 89.4 % (95.0-100.0); PO2 ABG 62.2 mmHg (80.0-100.0); PO2 FiO2 Ratio Arterial Blood 2.22 %; Total Hemoglobin 12.5 g/dL (12.0-18.0); pH ABG 7.333 (7.350-7.450)
[2022-02-05 12:50] LABS: Modified Allen's Test Pass; PCO2 ABG 71.1 mmHg (35.0-45.0); Site Drawn LEFT RADIAL
[2022-02-05 12:51] LABS: Device NASAL CANNULA
--- NOTE | 2022-02-05 18:19 | PM.IMPN ---
Progress Note: A&P Assessment and Plan (1) Pneumonia: Code(s): J18.9 - Pneumonia, unspecified organism Status: Acute Assessment and Plan: Patient started on Rocephin and Zithromax blood culture negative so far 02/05/2022 interval history: patient is morbidly obese with psychotic illness and resident [facility] emergency department with altered mental status seen by pinion polisher most likely secondary to hypercarbic respiratory failure patient had been refusing BiPAP in and now patient has agreed to use BiPAP, this has improved her mentation and today patient states feeling better will continue the BiPAP at nighttime will continue to monitor and further recommendation to follow. (2) Chronic respiratory failure with hypoxia and hypercapnia: Code(s): J96.11 - Chronic respiratory failure with hypoxia; J96.12 - Chronic respiratory failure with hypercapnia Status: Acute Assessment and Plan: Now on BiPAP hypercapnea and acidosis improving continue monitoring ] Appreciate help from pulmonology (3) NIGEL (obstructive sleep apnea): Code(s): G47.33 - Obstructive sleep apnea (adult) (pediatric) Status: Acute Assessment and Plan: Encouraged to continue using BiPAP (4) Gastroesophageal reflux disease: Code(s): K21.9 - Gastro-esophageal reflux disease without esophagitis Status: Acute Assessment and Plan: PPI as needed (5) Chronic obstructive pulmonary disease: Code(s): J44.9 - Chronic obstructive pulmonary disease, unspecified Status: Acute Assessment and Plan: Breathing treatments as needed Continue home meds (6) Right knee pain: Code(s): M25.561 - Pain in right knee Status: Acute Assessment and Plan: X-ray ordered (7) Respiratory failure with hypercapnia: Code(s): J96.92 - Respiratory failure, unspecified with hypercapnia Status: Acute Assessment and Plan: Abg showed worsening PCO2 with worsening pH BiPAP needed, patient at risk of intubation however still adamantly declines biPAP (8) Respiratory acidosis: Code(s): E87.29 - Other acidosis Status: Acute Assessment and Plan: repeat ABg showed worsening pH and PCO2 finally agreed using BiPAP and improvement noted clinically and on labs Pulmonology following Subjective Date/time seen: 02/05/22 18:19 Altered mental status HPI-Narrative: This is a 71-year-old female [facility] resident double was sent to the emergency room due to altered mental status patient was obtunded and lethargic while eating dinner.? Here preliminary workup was significant for a slightly elevated creatinine from her usual a chest x-ray was significant for opacities.? At the time of my visit patient was unable to give any history which I have obtained upon reviewing medical records and speaking to emergency room physician.? Patient was hypoxic in the emergency room an ABG showed elevated pCO2 58, PO2 of 58 pH of 7.32 patient was placed on supplemental oxygen by nasal cannula.? Patient is been admitted for further evaluation management and treatment. 02/05/2022 interval history: patient is morbidly obese with psychotic illness and [facility] emergency department with altered mental status seen by pinion polisher most likely secondary to hypercarbic respiratory failure patient had been refusing BiPAP in and now patient has agreed to use BiPAP, this has improved her mentation and today patient states feeling better will continue the BiPAP at nighttime will continue to monitor and further recommendation to follow. Review of Systems Review of Systems: ROS unobtainable: Yes unobtainable due to mental status Exam Narrative: Patient is comfortable, NAD HEENT: eyes are clear and none icteric LUNGS: bilateral poor air entry HEART: RR S1S2 ABD: BS+, Soft and nontender Lower extremities: no edema SKIN: nonjaundiced Neuro: gr
[2022-02-05] MEDS: HYDROcodone/acetaminophen (*CRX) 5-325 MG TABLET 1 TAB PO (21:08)
[2022-02-05] MEDS: ATORVASTATIN 20 MG TABLET PO (21:09)
[2022-02-05] MEDS: traZODone HCL 50 MG TABLET PO (21:09)
[2022-02-06] VITALS (23 sets, daily range): BP systolic 104–179; BP diastolic 61–87; PULSE 62–84; RESP 14–20; TEMP 36.1–36.8; O2SAT 94–99
[2022-02-06] MEDS: ALBUTEROL SULFATE NEB 2.5 MG/3 ML INH INHALATION ×5 (00:29→21:06)
[2022-02-06] MEDS: IPRATROPIUM BR 0.02% INH SOLN 0.5 MG/2.5 ML VIAL INHALATION ×5 (00:29→21:06)
[2022-02-06] MEDS: cefTRIAXone 2 GM in SODIUM CHLORIDE 0.9% IV 100 ML IVPB (05:15)
[2022-02-06] MEDS: BUDESONIDE RESPULE NEB 0.5 MG/2 ML AMP INHALATION ×2 (08:27→21:06)
[2022-02-06 08:44] LABS: Blood Urea Nitrogen 16 mg/dL (7-17); Calcium 8.8 mg/dL (8.4-10.2); Carbon Dioxide > 40 mmol/L (22-30); Chloride 100 mmol/L (98-107); Estimated CRCL calculation 66 ml/min; Estimated Glomerular Filt Rate > 60; Glucose 96 mg/dL (65-110); Potassium 4.6 mmol/L (3.4-5.0); Sodium 142 mmol/L (137-145)
[2022-02-06 08:48] LABS: Hematocrit 36.6 % (37.0-47.0); Hemoglobin 11.5 g/dL (12.0-15.0); Mean Corpuscular HGB Conc 31.4 g/dl (32-36); Mean Corpuscular Hemoglobin 31.5 pg (26-34); Mean Corpuscular Volume 100.3 fl (80-100); Mean Platelet Volume 10.3 fl (7.4-10.4); Platelet Count Result 162 k/mm3 (150-375); Red Blood Count 3.65 M/mm3 (4.2-5.4); Red Cell Distribution Width 12.8 % (11.5-14.5); White Blood Count 3.6 K/mm3 (4.5-10.0)
[2022-02-06] MEDS: carvediloL 3.125 MG TABLET PO ×2 (09:09→20:50)
[2022-02-06] MEDS: OLANZapine 5 MG TABLET 10 MG PO (09:09)
[2022-02-06] MEDS: PANTOPRAZOLE 40 MG TABLET PO (09:09)
[2022-02-06] MEDS: NIFEdipine 30 MG TAB.ER.24 60 MG PO (09:09)
[2022-02-06] MEDS: HALOPERIDOL 5 MG TABLET PO ×2 (09:09→17:39)
[2022-02-06] MEDS: SERTRALINE HCL 50 MG TABLET PO (09:09)
[2022-02-06] MEDS: SERTRALINE HCL 25 MG TABLET PO (09:09)
[2022-02-06] MEDS: AZITHROMYCIN 250 MG TABLET 500 MG PO (09:09)
[2022-02-06] MEDS: ASPIRIN 81 MG ENTERIC TABLET PO (09:10)
[2022-02-06] MEDS: BENZTROPINE MESYLATE 0.5 MG TABLET PO ×2 (09:10→17:39)
[2022-02-06] MEDS: GABAPENTIN 400 MG CAPSULE PO ×3 (09:10→17:39)
[2022-02-06] MEDS: ARIPiprazole 10 MG TABLET 30 MG PO (09:10)
[2022-02-06] MEDS: DIVALPROEX SODIUM DR 250 MG TABEC 500 MG PO ×2 (09:10→17:39)
[2022-02-06] MEDS: ACETAMINOPHEN 500 MG TABLET 1000 MG PO ×2 (09:10→17:39)
[2022-02-06] MEDS: hydrALAZINE HCL 50 MG TABLET 100 MG PO ×3 (09:11→17:39)
[2022-02-06] MEDS: carBAMazepine 200 MG TABLET PO ×2 (09:11→17:39)
[2022-02-06] MEDS: cloNIDine HCL 0.1 MG TABLET 0.3 MG PO ×2 (09:11→20:51)
[2022-02-06] MEDS: ENOXAPARIN 40 MG/0.4 ML SYRINGE SUB-Q (09:11)
[2022-02-06] MEDS: FERROUS SULFATE 324 MG TABLET PO (09:11)
[2022-02-06] MEDS: MICONAZOLE NITRATE 2% CREAM 30 GM TUBE 1 APPLIC TOPICAL ×2 (09:11→20:52)
[2022-02-06 11:37] LABS: Alveolar/Arterial O2 Gradient 51.2 mmHg; Base Excess ABG 6.9 mEq/l (+/-2.0); Fractional Inspired Oxygen 28 %; HCO3 ABG 33.8 mEq/l (22.0-26.0); Oxygen Content ABG 15.9 %vol (16.0-22.0); Oxygen Saturation ABG 94.9 % (95.0-100.0); Oxyhemoglobin 93.9 % THb (90.0-100.0); PCO2 ABG 59.7 mmHg (35.0-45.0); PO2 FiO2 Ratio Arterial Blood 2.79 %; pH ABG 7.371 (7.350-7.450)
[2022-02-06 11:41] LABS: Device NASAL CANNULA; Modified Allen's Test Pass; Site Drawn RIGHT RADIAL
--- NOTE | 2022-02-06 12:50 | PM.DS ---
DS: Summary Time Spent with Patient Time attestation: Total time spent providing and/or coordinating discharge services: DS: Data Data Completed and Pending Labs on day of discharge: Labs from last 24 hours 02/06/22 02/06/22 02/06/22 11:26 08:24 08:24 WBC 3.6 L RBC 3.65 L Hgb 11.5 L Hct 36.6 L MCV 100.3 H MCH 31.5 MCHC 31.4 L RDW 12.8 Plt Count 162 MPV 10.3 Puncture Site Right radial ABG pH 7.371 ABG pCO2 59.7 H ABG pO2 78.0 L ABG PO2/FiO2 Ratio 2.79 ABG HCO3 33.8 H ABG O2 Saturation 94.9 L ABG O2 Content 15.9 L ABG Base Excess 6.9 A-a Gradient 51.2 Oxyhemoglobin 93.9 Total Hemoglobin 12.0 O2 Delivery Device Nasal cannula O2 Liters/Min 2.0 FiO2 28 Sodium 142 Potassium 4.6 Chloride 100 Carbon Dioxide > 40 H Anion Gap BUN 16 Creatinine 0.70 Estim Creat Clear Calc 66 Estimated GFR > 60 Glucose 96 Calcium 8.8 02/05/22 12:09 WBC RBC Hgb Hct MCV MCH MCHC RDW Plt Count MPV Puncture Site Left radial ABG pH 7.333 L ABG pCO2 71.1 H* ABG pO2 62.2 L ABG PO2/FiO2 Ratio 2.22 ABG HCO3 36.9 H ABG O2 Saturation 89.4 L ABG O2 Content 15.8 L ABG Base Excess 8.6 A-a Gradient 53.5 Oxyhemoglobin 90.0 Total Hemoglobin 12.5 O2 Delivery Device Nasal cannula O2 Liters/Min 2.0 FiO2 28 Sodium Potassium Chloride Carbon Dioxide Anion Gap BUN Creatinine Estim Creat Clear Calc Estimated GFR Glucose Calcium Preliminary micro results at discharge 02/02/22 04:34 Blood Culture - Preliminary Blood 02/02/22 04:34 Blood Culture - Preliminary Blood Discharge Plan Discharge Attending physician on discharge: Shaneka Merida Consulting providers: Elvis Vuong Discharging Clinician: Shaneka Merida [facility] Activity: as tolerated Diet: heart healthy Discharge Instructions: patient to follow up with her student services director and primary care provider as soon as possible. Patient Instructions: Antibiotic Form, Melatonin (By mouth), Asthma (DC) Stand Alone Forms: General Discharge Information Discharge Medications: New hydrocodone-acetaminophen 5-325 mg Tablet 1 tablet PO Q4H PRN (Reason: Pain Rated 4-6) Qty: 12 0RF albuterol sulfate 2.5 mg /3 mL (0.083 %) Solution For Nebulization 2.5 mg inhalation Q4HRT Qty: 30 0RF ipratropium bromide 0.02 % Solution 0.5 mg inhalation Q4HRT Qty: 30 0RF budesonide [Pulmicort] 0.5 mg/2 mL Suspension For Nebulization 0.5 mg inhalation Q12HRT Qty: 30 0RF Continued benztropine 0.5 mg tablet 0.5 mg PO BID carbamazepine 200 mg tablet 200 mg PO BID aripiprazole 30 mg tablet 30 mg PO DAILY hydralazine 100 mg tablet 100 mg PO TID docusate sodium 100 mg capsule 100 mg PO DAILY ergocalciferol (vitamin D2) 1,250 mcg (50,000 unit) capsule 1,250 mcg PO MONTHLY haloperidol 5 mg Tablet 5 mg PO BID Hold Instructions: until reviewed by primary provider aspirin 81 mg Tablet,Delayed Release (Dr/Ec) 81 mg PO DAILY sertraline 25 mg Tablet 25 mg PO DAILY Rx Instructions: GIVE WITH 50MG TO EQUAL 75MG DAILY sertraline 50 mg Tablet 50 mg PO DAILY Rx Instructions: take with 25mg to equal 75 mg daily polyethylene glycol Powder See Rx Instructions .ROUTE .COMPLEX Rx Instructions: 17 grams PO Daily gabapentin 400 mg Tablet 400 mg PO TID trazodone 50 mg Tablet 50 mg PO HS Hold Instructions: do not give until reviewed by primary care provider Milk of Magnesia 30 ml PO DAILY PRN (Reason: Constipation) albuterol sulfate [Proventil HFA] 90 mcg/actuation Hfa Aerosol Inhaler 2 puff inhalation Q6HRT PRN (Reason: Shortness Of Breath) Qty: 6.7 0RF carvedilol 3.125 mg Tablet 3.125 mg PO BID pantoprazole 20 mg tablet,delayed r
[2022-02-06 13:34] LABS: EDCOVIDSCREEN Negative (Negative)
--- NOTE | 2022-02-06 14:05 | PM.PNPUL ---
Progress Note: A&P Assessment and Plan (1) Obesity hypoventilation syndrome: Code(s): E66.2 - Morbid (severe) obesity with alveolar hypoventilation Status: Acute Assessment and Plan: 71-year-old female with a history of psychiatric illness on multiple medications, also history of chronic hypoxemic hypercapnic respiratory failure related to obesity hypo ventilation syndrome with previous elevation of pulmonary artery systolic pressure on echocardiogram presented with confusion. Patient had been refusing treatment with noninvasive ventilatory support. she finally agreed to start BiPAP support 3 days ago. After using BiPAP support for 1 night blood gases showed some improvement of hypercapnic respiratory failure. She again did not use BiPAP support 2 days ago. ABGs today after she used BiPAP support last night showed further improvement of hypercapnic respiratory failure. PH now in normal range and pCO2 low 50's mmHg. review previous hospitalization in 2019 showed that the patient had adequate apnealimk study on BiPAP 12/6 Plan: Out of bed to chair. BiPAP 12/6 along with 3 liters/minute supplemental oxygen tonight and [facility]. Will consider possible DC following [facility] tonight. The case was discussed with the hospitalist (2) Hypoxia: Code(s): R09.02 - Hypoxemia Status: Acute (3) Hypercarbia: Code(s): R06.89 - Other abnormalities of breathing Status: Acute (4) Chronic respiratory failure with hypoxia and hypercapnia: Code(s): J96.11 - Chronic respiratory failure with hypoxia; J96.12 - Chronic respiratory failure with hypercapnia Status: Acute (5) Type 2 diabetes mellitus: Code(s): E11.9 - Type 2 diabetes mellitus without complications Status: Acute (6) Schizophrenia: Qualifiers: Schizophrenia type: unspecified Qualified Code(s): F20.9 - Schizophrenia, unspecified Code(s): F20.9 - Schizophrenia, unspecified Status: Chronic Subjective Date/time seen: 02/06/22 14:05 Patient fully awake, has no new respiratory symptoms. Use BiPAP support last night. ABGs done today showed further correction of hypercapnic respiratory acidosis. Review of Systems Review of Systems: All system review is negative except as noted in HPI and below. Exam Narrative: GENERAL APPEARANCE: Well developed, well nourished, alert and cooperative, and appears to be in no acute distress while on supplemental oxygen via nasal cannula SKIN: Inspection of the skin reveals no rashes, ulcerations or petechiae. HEENT: Sclerae anicteric and conjunctivae pink and moist. Extraocular movements were intact and pupils were equal, round. The oral mucosa, hard and soft palate, tongue and posterior pharynx were normal. NECK: Supple. There was no thyroid enlargement, and no tenderness, or masses were felt. LUNGS: Auscultation of the lungs revealed normal breath sounds without any other adventitious sounds or rubs. CARDIAC: There was a regular rate and rhythm without any murmurs, gallops, rubs. ABDOMEN: Soft and nontender with normal bowel sounds. LYMPH NODES: No lymphadenopathy was appreciated in the neck EXTREMITIES: No cyanosis, clubbing or edema. NEUROLOGIC: Alert and oriented x 3. Objective Data Vital Signs Vital Signs: Vital Signs - 24 hr 02/05/22 16:00 02/05/22 16:10 02/05/22 16:00 Temperature 36.6 C Pulse Rate 67 62 86 Respiratory Rate 18 18 18 Blood Pressure 142/66 H Pulse Oximetry 99 Oxygen Delivery Oxygen Flow Rate Fraction of Inspired Oxygen 02/05/22 16:00 02/05/22 16:00 02/05/22 18:00 Temperature Pulse Rate 65 69 Respiratory Rate Blood Pressure Pulse Oximetry 97 Oxygen Delivery Nasal Cannula Oxygen Flow Rate 2 Fraction of Inspired Oxygen 02/05/22 20:08 02/05/22 20:08 02/05/22 20:00 Temperature 36.4 C L Pulse Rate 67 67 108 H Respiratory Rate 16 16 20 Blood Pressure 163/77 H Pulse Oxime
[2022-02-06] MEDS: HYDROcodone/acetaminophen (*CRX) 5-325 MG TABLET 1 TAB PO (20:50)
[2022-02-06] MEDS: traZODone HCL 50 MG TABLET PO (20:52)
[2022-02-06] MEDS: ATORVASTATIN 20 MG TABLET PO (20:52)
--- NOTE | 2022-02-06 23:01 | PCRCNOTE ---
[facility] started .
[2022-02-07] VITALS (15 sets, daily range): BP systolic 153–182; BP diastolic 75–92; PULSE 58–79; RESP 16–19; TEMP 36–36.4; O2SAT 94–100
[2022-02-07] MEDS: BUDESONIDE RESPULE NEB 0.5 MG/2 ML AMP INHALATION (08:40)
[2022-02-07] MEDS: ALBUTEROL SULFATE NEB 2.5 MG/3 ML INH INHALATION ×2 (08:40→13:14)
[2022-02-07] MEDS: IPRATROPIUM BR 0.02% INH SOLN 0.5 MG/2.5 ML VIAL INHALATION ×2 (08:40→13:14)
[2022-02-07] MEDS: cloNIDine HCL 0.1 MG TABLET 0.3 MG PO (08:45)
[2022-02-07] MEDS: OLANZapine 5 MG TABLET 10 MG PO (08:45)
[2022-02-07] MEDS: FERROUS SULFATE 324 MG TABLET PO (08:45)
[2022-02-07] MEDS: carBAMazepine 200 MG TABLET PO (08:45)
[2022-02-07] MEDS: ASPIRIN 81 MG ENTERIC TABLET PO (08:46)
[2022-02-07] MEDS: carvediloL 3.125 MG TABLET PO (08:46)
[2022-02-07] MEDS: SERTRALINE HCL 25 MG TABLET PO (08:46)
[2022-02-07] MEDS: SERTRALINE HCL 50 MG TABLET PO (08:46)
[2022-02-07] MEDS: NIFEdipine 30 MG TAB.ER.24 60 MG PO (08:46)
[2022-02-07] MEDS: ARIPiprazole 10 MG TABLET 30 MG PO (08:46)
[2022-02-07] MEDS: DIVALPROEX SODIUM DR 250 MG TABEC 500 MG PO (08:46)
[2022-02-07] MEDS: HALOPERIDOL 5 MG TABLET PO (08:46)
[2022-02-07] MEDS: GABAPENTIN 400 MG CAPSULE PO (08:46)
[2022-02-07] MEDS: ACETAMINOPHEN 500 MG TABLET 1000 MG PO (08:46)
[2022-02-07] MEDS: PANTOPRAZOLE 40 MG TABLET PO (08:46)
[2022-02-07] MEDS: hydrALAZINE HCL 50 MG TABLET 100 MG PO (08:46)
[2022-02-07] MEDS: BENZTROPINE MESYLATE 0.5 MG TABLET PO (08:47)
[2022-02-07] MEDS: MICONAZOLE NITRATE 2% CREAM 30 GM TUBE 1 APPLIC TOPICAL (08:47)
--- NOTE | 2022-02-07 09:44 | PM.PNPUL ---
Progress Note: A&P Assessment and Plan (1) Obesity hypoventilation syndrome: Code(s): E66.2 - Morbid (severe) obesity with alveolar hypoventilation Status: Acute Assessment and Plan: 71-year-old female with a history of psychiatric illness on multiple medications, also history of chronic hypoxemic hypercapnic respiratory failure related to obesity hypo ventilation syndrome with previous elevation of pulmonary artery systolic pressure on echocardiogram presented with confusion. clinical status has improved following BiPAP support especially at night. Patient initially refusing BiPAP support. [facility] on BiPAP support 12/6 and 3 L supplemental oxygen showed no oxyhemoglobin desaturation. Plan: Okay to DC patient to care home today. Patient will resume her BiPAP 12/6 at the care home at night along with supplemental oxygen 3 liters/minute. Would like to see the patient in the outpatient clinic for follow-up in approximately 3-4 weeks. (2) Hypoxia: Code(s): R09.02 - Hypoxemia Status: Acute (3) Hypercarbia: Code(s): R06.89 - Other abnormalities of breathing Status: Acute (4) Chronic respiratory failure with hypoxia and hypercapnia: Code(s): J96.11 - Chronic respiratory failure with hypoxia; J96.12 - Chronic respiratory failure with hypercapnia Status: Acute (5) Type 2 diabetes mellitus: Code(s): E11.9 - Type 2 diabetes mellitus without complications Status: Acute (6) Schizophrenia: Qualifiers: Schizophrenia type: unspecified Qualified Code(s): F20.9 - Schizophrenia, unspecified Code(s): F20.9 - Schizophrenia, unspecified Status: Chronic Subjective Date/time seen: 02/07/22 09:44 Patient doing better. Slept well on BiPAP 12/6 and supplemental oxygen. Underwent [facility], eager to be d/c today. Review of Systems Review of Systems: All system review is negative except as noted in HPI and below. Exam Narrative: GENERAL APPEARANCE: Well developed, well nourished, alert and cooperative, and appears to be in no acute distress while on supplemental oxygen via nasal cannula SKIN: Inspection of the skin reveals no rashes, ulcerations or petechiae. HEENT: Sclerae anicteric and conjunctivae pink and moist. Extraocular movements were intact and pupils were equal, round. The oral mucosa, hard and soft palate, tongue and posterior pharynx were normal. NECK: Supple. There was no thyroid enlargement, and no tenderness, or masses were felt. LUNGS: Auscultation of the lungs revealed normal breath sounds without any other adventitious sounds or rubs. CARDIAC: There was a regular rate and rhythm without any murmurs, gallops, rubs. ABDOMEN: Soft and nontender with normal bowel sounds. LYMPH NODES: No lymphadenopathy was appreciated in the neck EXTREMITIES: No cyanosis, clubbing or edema. NEUROLOGIC: Alert and oriented x 3. Objective Data Vital Signs Vital Signs: Vital Signs - 24 hr 02/06/22 11:29 02/06/22 12:00 02/06/22 16:18 Temperature 36.8 C Pulse Rate 76 67 72 Respiratory Rate 14 16 20 Blood Pressure 125/61 Pulse Oximetry 97 Oxygen Delivery Oxygen Flow Rate Fraction of Inspired Oxygen 02/06/22 16:30 02/06/22 16:00 02/06/22 12:00 Temperature 36.2 C L Pulse Rate 72 68 Respiratory Rate 20 16 Blood Pressure 152/79 H Pulse Oximetry 99 94 Oxygen Delivery Nasal Cannula Oxygen Flow Rate 2 Fraction of Inspired Oxygen 02/06/22 10:00 02/06/22 12:00 02/06/22 14:00 Temperature Pulse Rate 66 71 72 Respiratory Rate Blood Pressure Pulse Oximetry Oxygen Delivery Oxygen Flow Rate Fraction of Inspired Oxygen 02/06/22 16:00 02/06/22 16:00 02/06/22 18:00 Temperature Pulse Rate 67 76 Respiratory Rate Blood Pressure Pulse Oximetry 94 Oxygen Delivery Nasal Cannula Oxygen Flow Rate 2 Fraction of Inspired Oxygen 02/06/22 20:00 02/06/22 20:50
--- NOTE | 2022-02-07 11:01 | PM.IMPN ---
Progress Note: A&P Assessment and Plan (1) Pneumonia: Code(s): J18.9 - Pneumonia, unspecified organism Status: Acute Assessment and Plan: Patient started on Rocephin and Zithromax blood culture negative so far 02/06/2022 interval history: patient is morbidly obese with psychotic illness and resident of shelter patient emergency department with altered mental status seen by reel worker most likely secondary to hypercarbic respiratory failure patient had been refusing BiPAP in and now patient has agreed to use BiPAP, repeat ABG today showed 7.371/ 59.7/78, patient's CO2 has improved, this has improved her mentation and today patient states feeling better will continue the BiPAP at nighttime will continue to monitor and further recommendation to follow (2) Chronic respiratory failure with hypoxia and hypercapnia: Code(s): J96.11 - Chronic respiratory failure with hypoxia; J96.12 - Chronic respiratory failure with hypercapnia Status: Acute Assessment and Plan: Now on BiPAP hypercapnea and acidosis improving continue monitoring ] Appreciate help from pulmonology (3) NIGEL (obstructive sleep apnea): Code(s): G47.33 - Obstructive sleep apnea (adult) (pediatric) Status: Acute Assessment and Plan: Encouraged to continue using BiPAP (4) Gastroesophageal reflux disease: Code(s): K21.9 - Gastro-esophageal reflux disease without esophagitis Status: Acute Assessment and Plan: PPI as needed (5) Chronic obstructive pulmonary disease: Code(s): J44.9 - Chronic obstructive pulmonary disease, unspecified Status: Acute Assessment and Plan: Breathing treatments as needed Continue home meds (6) Right knee pain: Code(s): M25.561 - Pain in right knee Status: Acute Assessment and Plan: X-ray ordered (7) Respiratory failure with hypercapnia: Code(s): J96.92 - Respiratory failure, unspecified with hypercapnia Status: Acute Assessment and Plan: Abg showed worsening PCO2 with worsening pH BiPAP needed, patient at risk of intubation however still adamantly declines biPAP (8) Respiratory acidosis: Code(s): E87.29 - Other acidosis Status: Acute Assessment and Plan: repeat ABg showed worsening pH and PCO2 finally agreed using BiPAP and improvement noted clinically and on labs Pulmonology following Subjective Date/time seen: 02/06/22 11:01 02/06/2022 interval history: patient is morbidly obese with psychotic illness and resident of shelter patient emergency department with altered mental status seen by reel worker most likely secondary to hypercarbic respiratory failure patient had been refusing BiPAP in and now patient has agreed to use BiPAP, repeat ABG today showed 7.371/ 59.7/78, patient's CO2 has improved, this has improved her mentation and today patient states feeling better will continue the BiPAP at nighttime will continue to monitor and further recommendation to follow. Review of Systems Review of Systems: ROS unobtainable: Yes unobtainable due to mental status Exam Narrative: Patient is comfortable, NAD HEENT: eyes are clear and none icteric LUNGS: bilateral poor air entry HEART: RR S1S2 ABD: BS+, Soft and nontender Lower extremities: no edema SKIN: nonjaundiced Neuro: grossly intact. Objective Data Vital Signs Vital Signs: Vital Signs - 24 hr 02/06/22 11:29 02/06/22 12:00 02/06/22 16:18 Temperature 98.3 F Pulse Rate 76 67 72 Respiratory Rate 14 16 20 Blood Pressure 125/61 Pulse Oximetry 97 Oxygen Delivery Oxygen Flow Rate Fraction of Inspired Oxygen 02/06/22 16:30 02/06/22 16:00 02/06/22 12:00 Temperature 97.1 F L Pulse Rate 72 68 Respiratory Rate 20 16 Blood Pressure 152/79 H Pulse Oximetry 99 94 Oxygen Delivery Nasal Cannula Oxygen Flow Rate 2 Fraction of Inspired Oxygen 02/06/22 12:00
--- NOTE | 2022-02-07 11:02 | PM.DS ---
DS: Admitting Diagnosis Discharge Date 02/07/2022 Admitting Diagnosis alter mental status DS: Discharge Diagnosis Discharge Diagnosis (1) Pneumonia: Code(s): J18.9 - Pneumonia, unspecified organism Status: Acute Assessment and Plan: Patient started on Rocephin and Zithromax blood culture negative so far 02/06/2022 interval history: patient is morbidly obese with psychotic illness and resident of retirement patient emergency department with altered mental status seen by stove tender most likely secondary to hypercarbic respiratory failure patient had been refusing BiPAP in and now patient has agreed to use BiPAP, repeat ABG today showed 7.371/ 59.7/78, patient's CO2 has improved, this has improved her mentation and today patient states feeling better will continue the BiPAP at nighttime will continue to monitor and further recommendation to follow (2) Chronic respiratory failure with hypoxia and hypercapnia: Code(s): J96.11 - Chronic respiratory failure with hypoxia; J96.12 - Chronic respiratory failure with hypercapnia Status: Acute Assessment and Plan: Now on BiPAP hypercapnea and acidosis improving continue monitoring ] Appreciate help from pulmonology (3) NIGEL (obstructive sleep apnea): Code(s): G47.33 - Obstructive sleep apnea (adult) (pediatric) Status: Acute Assessment and Plan: Encouraged to continue using BiPAP (4) Gastroesophageal reflux disease: Code(s): K21.9 - Gastro-esophageal reflux disease without esophagitis Status: Acute Assessment and Plan: PPI as needed (5) Chronic obstructive pulmonary disease: Code(s): J44.9 - Chronic obstructive pulmonary disease, unspecified Status: Acute Assessment and Plan: Breathing treatments as needed Continue home meds (6) Right knee pain: Code(s): M25.561 - Pain in right knee Status: Acute Assessment and Plan: X-ray ordered (7) Respiratory failure with hypercapnia: Code(s): J96.92 - Respiratory failure, unspecified with hypercapnia Status: Acute Assessment and Plan: Abg showed worsening PCO2 with worsening pH BiPAP needed, patient at risk of intubation however still adamantly declines biPAP (8) Respiratory acidosis: Code(s): E87.29 - Other acidosis Status: Acute Assessment and Plan: repeat ABg showed worsening pH and PCO2 finally agreed using BiPAP and improvement noted clinically and on labs Pulmonology following DS: Summary Hospital Course Reason for hospitalization: Chief Complaint: Altered mental status Narrative: This is a 71-year-old female retirement resident double was sent to the emergency room due to altered mental status patient was obtunded and lethargic while eating dinner.? Here preliminary workup was significant for a slightly elevated creatinine from her usual a chest x-ray was significant for opacities.? At the time of my visit patient was unable to give any history which I have obtained upon reviewing medical records and speaking to emergency room physician.? Patient was hypoxic in the emergency room an ABG showed elevated pCO2 58, PO2 of 58 pH of 7.32 patient was placed on supplemental oxygen by nasal cannula.? Patient is been admitted for further evaluation management and treatment. Hospital Course: ?patient is morbidly obese with psychotic illness and resident of retirement patient emergency department with altered mental status seen by stove tender most likely secondary to hypercarbic respiratory failure patient had been refusing BiPAP in and now patient has agreed to use BiPAP,? repeat ABG today showed 7.371/ 59.7/78,? patient's CO2 has improved, this has improved her mentation and today patient states feeling better will continue the BiPAP at nighttime will continue to monitor and further recommendation to follow today patient is clinically stable will discharge patient back to [facility]
== END 2022-02-07 13:32 | DRG 133 ==
LOC: ANHED 20:25 → ANHIMU 02-02 00:18
PROVIDERS: Emergency Medicine; Internal Medicine; Internal Medicine Pulmonary Disease; Admitting Provider Internal Medicine; Emergency Provider Emergency Medicine; Visit Provider Family Medicine
DX: J96.22 Acute and chronic respiratory failure with hypercapnia (principal); J18.9 Pneumonia, unspecified organism; E87.29 Other acidosis; E66.2 Morbid (severe) obesity with alveolar hypoventilation; J96.21 Acute and chronic respiratory failure with hypoxia; E11.9 Type 2 diabetes mellitus without complications; J44.0 Chronic obstructive pulmonary disease with (acute) lower respiratory infection; F20.9 Schizophrenia, unspecified; M25.561 Pain in right knee; Z68.35 Body mass index [BMI] 35.0-35.9, adult; Z20.822 Contact with and (suspected) exposure to COVID-19; K21.9 Gastro-esophageal reflux disease without esophagitis; I10 Essential (primary) hypertension; Z96.642 Presence of left artificial hip joint; Z86.73 Personal history of transient ischemic attack (TIA), and cerebral infarction without residual deficits; Z86.16 Personal history of COVID-19; Z90.49 Acquired absence of other specified parts of digestive tract; Z87.891 Personal history of nicotine dependence; Z86.718 Personal history of other venous thrombosis and embolism
CPT/HCPCS: 36415; 36600; 51701; 71045; 73562; 80048; 80053; 81003; 82375; 82805; 83050; 83880; 85025; 85027; 85610; 85730; 87040; 87426; 87636; 87637; 93005; 94002; 94003; 94640; 94660; 94762; 96365; 96367; 96374; 96375; 97161; 99285; A9270; C9803; G0378; G0379; J0360; J0456; J0696; J1650; J2930

== ENCOUNTER 2022-04-29 09:17 | Inpatient (IN) | payer OTHER, SELFPAY ==
[2022-04-29] VITALS (49 sets, daily range): BP systolic 118–208; BP diastolic 61–111; PULSE 45–68; RESP 10–22; TEMP 36–36.8; O2SAT 91–100; BMI 36.4
--- NOTE | ~2022-04-29 | CT_ITS ---
EXAMINATION: CT brain wo con DATE: 04/29/2022 10:18 INDICATION: Altered mental status TECHNIQUE: Computed tomography (CT) of the head was performed without intravenous contrast. Sagittal and coronal reconstructions were performed. The mA was adjusted according to patient size. Iterative reconstruction technique was employed. The dose-length product was 605.33 mGy-cm. COMPARISON: head CT dated 07/01/2021 FINDINGS: No acute intracranial hemorrhage, acute infarction or abnormal extra axial fluid collection. Ventricl es are normal and symmetric. No mass/mass effect. Intracranial calcified cerebral atherosclerosis is noted. The orbits, paranasal sinuses and mastoid air cells are normal. IMPRESSION: 1. No acute intracranial process. Reviewed, dictated and finalized at location L.
--- NOTE | ~2022-04-29 | XR_ITS ---
Portable chest x-ray Comparison: 02/01/2022 Clinical History: Altered mental status Findings: Possible minimal central congestive change. No consolidation or pleural effusion. Cardiom ediastinal silhouette is stable. Bones and soft tissues are unremarkable. Impression: Possible minimal central congestive change. Reviewed, dictated and finalized at location . Impression: Possible minimal central congestive change.
--- NOTE | 2022-04-29 09:26 | ECG_ITS ---
Measurements Intervals [place] Rate: 57 P: 42 CT: 197 QRS: 19 QRSD: 88 T: 215 QT: 464 QTc: 454 Interpretive Statements SINUS BRADYCARDIA T WAVE ABNORMALITY IN DIFFUSE LEADS- CONSIDER ISCHEMIA ABNORMAL ECG COMPARED TO ECG 02/01/2022 18:46:41 SINUS BRADYCARDIA NOW PRESENT T WAVE ABNORMALITY IS MORE PRONOUNCED Electronically Signed On 04-29-2022 9:37:15 CDT by Willy Crawford D.O.
--- NOTE | 2022-04-29 10:03 | ED.AMS ---
HPI - Altered Mental Status General Chief Complaint: Altered Mental Status <Jeanna Lombardi PA-C - Last Filed: 04/29/22 12:57> Stated Complaint: AMS <Jeanna Lombardi PA-C - Last Filed: 04/29/22 12:57> Time Seen by Provider: 04/29/22 09:39 <Jeanna Lombardi PA-C - Last Filed: 04/29/22 12:57> Source: EMS and old records reviewed <MISAEL Johnson Last Filed: 04/29/22 12:57> Mode of arrival: EMS <MISAEL Johnson Last Filed: 04/29/22 12:57> Limitations: altered mental status <Jeanna Lombardi PA-C - Last Filed: 04/29/22 12:57> History of Present Illness HPI narrative: This is a 71-year-old female that presents to the emergency department for altered mental status. Patient from local nursing facility. Noted to be very lethargic today. She was given a dose of Haldol this morning. Also was found not wearing her oxygen. She is supposed to be on 3 L via nasal cannula chronically due to her COPD. Patient is arousable to sternal rub. Unable to obtain any history from her. <Jeanna Lombardi PA-C - Last Filed: 04/29/22 12:57> Related Data Home Medications: Home Medications Medication Instructions Recorded Confirmed aripiprazole 30 mg tablet 30 mg PO DAILY 01/24/20 04/29/22 benztropine 0.5 mg tablet 0.5 mg PO BID 01/24/20 04/29/22 carbamazepine 200 mg tablet 200 mg PO BID 01/24/20 04/29/22 docusate sodium 100 mg capsule 100 mg PO DAILY 01/24/20 04/29/22 ergocalciferol (vitamin D2) 1,250 1,250 mcg PO MONTHLY 01/24/20 04/29/22 mcg (50,000 unit) capsule hydralazine 100 mg tablet 100 mg PO TID 01/24/20 04/29/22 aspirin 81 mg tablet,delayed 81 mg PO DAILY 01/25/20 04/29/22 release haloperidol 5 mg tablet 5 mg PO BID 01/25/20 04/29/22 polyethylene glycol See Rx Instructions .Route .COMPLEX 01/25/20 04/29/22 sertraline 25 mg tablet 25 mg PO DAILY 01/25/20 04/29/22 sertraline 50 mg tablet 50 mg PO DAILY 01/25/20 04/29/22 trazodone 50 mg tablet 50 mg PO HS 01/25/20 04/29/22 carvedilol 3.125 mg tablet 3.125 mg PO BID 05/22/21 04/29/22 nifedipine 60 mg tablet,extended 60 mg PO DAILY 05/22/21 04/29/22 release Artificial Tears 1 drp EACH EYE Q6H PRN Dry Eye(S) 09/10/21 04/29/22 acetaminophen 500 mg tablet 1,000 mg PO BID 09/10/21 04/29/22 atorvastatin 20 mg tablet 20 mg PO HS 09/10/21 04/29/22 clonidine HCl 0.3 mg tablet 0.3 mg PO Q12H 09/10/21 04/29/22 nystatin 100,000 unit/gram topical 1 applic topical BID 09/10/21 04/29/22 cream olanzapine 10 mg tablet 10 mg PO DAILY 09/10/21 04/29/22 divalproex 500 mg tablet,delayed 500 mg PO BID 09/11/21 04/29/22 release budesonide-formoterol HFA 80 2 puff inhalation BID 02/02/22 03/04/22 mcg-4.5 mcg/actuation aerosol inhaler (Symbicort) ferrous sulfate 325 mg (65 mg 325 mg PO DAILY 02/02/22 04/29/22 iron) tablet gabapentin 400 mg capsule 400 mg TID 04/29/22 04/29/22 omeprazole 20 mg capsule,delayed 20 mg DAILY 04/29/22 04/29/22 release <Jeanna Lombardi PA-C - Last Filed: 04/29/22 12:57> Allergies/Adverse Reactions: Allergies Allergy/AdvReac Type Severity Reaction Status Date / Time Penicillins Allergy Unknown Hives / Verified 04/29/22 11:22 Red Face <Jeanna Lombardi PA-C - Last Filed: 04/29/22 12:57> Review of Systems Review of Systems: ROS unobtainable: Yes unobtainable due to mental status <Jeanna Lombardi PA-C - Last Filed: 04/29/22 12:57> FOR[facility], [facility] Past Medical History Medical History: Medical History Asthma Cerebrovascular accident Chronic obstructive pulmonary disease Deep venous thrombosis Gastroesophageal reflux disease Hypertension Migraine headache Schizophrenia Suspected 2019 novel coronavirus infection Type 2 diabetes mellitus Diet-controlled. <Jeanna Lombardi PA-C - Last Filed: 04/29/22 12:57> Surgical History Surgical History: Surgical History H
[2022-04-29 10:30] LABS: Alveolar/Arterial O2 Gradient 47.3 mmHg; Base Excess ABG 7.8 mEq/l (+/-2.0); Carboxyhemoglobin 0.8 % THb (0-2.0); Fractional Inspired Oxygen 28 %; Methemoglobin ABG 0.3 %THb (0-1.5); Oxygen Content ABG 16.8 %vol (16.0-22.0); Oxygen Saturation ABG 92.6 % (95.0-100.0); Oxyhemoglobin 92.3 % THb (90.0-100.0); PO2 ABG 70.8 mmHg (80.0-100.0); PO2 FiO2 Ratio Arterial Blood 2.53 %; Reduced Hemoglobin 6.6 %THb (0-5.0); Total Hemoglobin 12.9 g/dL (12.0-18.0); pH ABG 7.335 (7.350-7.450)
[2022-04-29 10:31] LABS: Device NASAL CANNULA; PCO2 ABG 69.1 mmHg (35.0-45.0); Site Drawn LEFT BRACHIAL
--- NOTE | 2022-04-29 10:40 | PC.NURSE ---
respiratory at bedside setting up bipap.
[2022-04-29 10:49] LABS: Basophils Percent Auto 0.8 % (0.2-1.2); Eosinophils Absolute Auto 0.1 K/mm3 (0-0.3); Eosinophils Percent Auto 3.4 % (0-4.4); Hematocrit 38.4 % (37.0-47.0); Hemoglobin 12.3 g/dL (12.0-15.0); Lymphocytes Absolute Auto 1.45 K/mm3 (0.9-3.2); Lymphocytes Percent Auto 38.1 % (18.3-44.2); Mean Corpuscular Hemoglobin 32.1 pg (26-34); Mean Corpuscular Volume 100.3 fl (80-100); Mean Platelet Volume 10.2 fl (7.4-10.4); Monocytes Absolute Auto 0.5 K/mm3 (0.1-0.6); Monocytes Percent Auto 13.9 % (2.6-8.5); Neutrophils Absolute Auto 1.7 K/mm3 (1.3-6.7); Neutrophils Percent Auto 43.8 % (45.5-73.1); Platelet Count Result 148 k/mm3 (150-375); Red Blood Count 3.83 M/mm3 (4.2-5.4); Red Cell Distribution Width 12.4 % (11.5-14.5); White Blood Count 3.8 K/mm3 (4.5-10.0)
[2022-04-29 10:59] LABS: Lactic Acid Reflex 0.7 mmol/L (0.7-2.0)
[2022-04-29 11:00] LABS: INR 1.1; Partial Thromboplastin Time 27.7 SECONDS (22.3-36.8); Prothrombin Time 14.1 Seconds (11.1-14.7)
[2022-04-29 11:03] LABS: Alanine Aminotransferase 13 U/L (6-35); Albumin Level 3.6 g/dL (3.5-5.1); Alkaline Phosphatase 59 U/L (38-126); Anion Gap -1 mmol/L (8-16); Aspartate Amino Transferase 20 U/L (14-36); Bilirubin,Total 0.3 mg/dL (0.2-1.3); Blood Urea Nitrogen 24 mg/dL (7-17); CRP < 0.5 mg/dL (<1.0); Calcium 8.3 mg/dL (8.4-10.2); Carbon Dioxide 38 mmol/L (22-30); Chloride 104 mmol/L (98-107); Estimated Glomerular Filt Rate > 60; Glucose 100 mg/dL (65-110); Potassium 3.9 mmol/L (3.4-5.0); Sodium 141 mmol/L (137-145)
[2022-04-29 11:11] LABS: Troponin I 0.012 ng/mL (0.000-0.034)
[2022-04-29 11:20] LABS: Amphetamine Screen Urine Negative (Negative); Barbiturate Screen Urine Negative (Negative); Benzodiazepines Screen Urine Negative (Negative); Cannabinoid Screen Urine Negative (Negative); Cocaine Screen Urine Negative (Negative); Methadone Screen Urine Negative (Negative); Opiate Screen Urine Negative (Negative); Phencyclidine Screen Urine Negative (Negative)
--- NOTE | 2022-04-29 11:20 | PC.NURSE ---
Spoke with [facility] to confirm CODE STATUS and have nursing facility paperwork faxed to [facility]. Per facility, patient is a full code, confirmed penicillin allergy. P
--- NOTE | 2022-04-29 11:23 | PC.NURSE ---
Spoke with Adrián at [facility], will fax over paperwork for patient.
[2022-04-29 11:29] LABS: Appearance Urine Clear (Clear); Bacteria Urine None Seen /hpf; Bilirubin Urine Negative (Negative); Blood Urine Negative (Negative); Color Urine Yellow (Yellow); Glucose Urine UA Negative (Negative); Ketones Urine Trace mg/dL (Negative); Leukocyte Esterase Ur Negative LEU/UL (Negative); Need Manual Microscopic Reviewed; Nitrate Urine Negative (Negative); Protein Urine Trace mg/dL (Negative); RBC Urine 0-2 /hpf (0-2); Specific Grav Ur 1.024 (1.001-1.035); Squamous Epithelial Cell Urine None seen /hpf (Few); Urobilinogen Urine 0.2 mg/dL (<2.0); WBC Urine 0-5 /hpf; pH Urine 6.5 (5.0-9.0)
[2022-04-29 11:31] LABS: Add Urine Microscopic? YES
[2022-04-29 11:41] LABS: Influenza A QL RT-PCR Negative (Negative); Influenza B QL RT-PCR Negative (Negative); SARS-CoV-2 RNA PCR Negative
[2022-04-29 11:43] LABS: NT Pro B Type Natriuretic Pept 783 pg/mL (19.9-100)
--- NOTE | 2022-04-29 11:50 | PC.NURSE ---
Spoke with ANANYA Meeks, about hypertension and paperwork faxed from facility. Pt is full code.
[2022-04-29 12:12] LABS: Base Excess ABG 8.7 mEq/l (+/-2.0); Carboxyhemoglobin 0.6 % THb (0-2.0); Fractional Inspired Oxygen 25 %; HCO3 ABG 36.8 mEq/l (22.0-26.0); Methemoglobin ABG 0.4 %THb (0-1.5); Oxygen Content ABG 16.3 %vol (16.0-22.0); PCO2 ABG 67.5 mmHg (35.0-45.0); PO2 ABG 54.1 mmHg (80.0-100.0); PO2 FiO2 Ratio Arterial Blood 2.16 %; Reduced Hemoglobin 12.6 %THb (0-5.0); Total Hemoglobin 13.4 g/dL (12.0-18.0); pH ABG 7.354 (7.350-7.450)
[2022-04-29 12:13] LABS: Device NON-INVASIVE VENT; Non-Invasive Expiratory Pressure 5 CMH2O; Non-Invasive Inspiratory Pressure 18 CMH2O; Non-Invasive Vent Rate 15 /MIN; Oxygen Saturation ABG 85.5 % (95.0-100.0); Oxyhemoglobin 86.4 % THb (90.0-100.0); Site Drawn LEFT BRACHIAL
--- NOTE | 2022-04-29 12:35 | PC.NURSE ---
Tolerating bipap well, sleeping at this time.
--- NOTE | 2022-04-29 13:30 | PM.IMHP ---
H&P: HPI History of Present Illness Date/Time: 04/29/22 13:30 Chief Complaint: Lethargy. Narrative: This is a 71-year-old female with chronic respiratory failure on oxygen, obesity hypoventilation syndrome, coronary artery disease, congestive heart failure, hypertension, diabetes, schizophrenia, and depression who presented to the emergency department via EMS from [facility] for evaluation of lethargy. She is currently on BiPAP and is able to speak somewhat through the mask however it is difficult for her and thus some of the following history is supplemented via a review of her electronic medical records. Staff found her without her oxygen this morning and she was reportedly lethargic and minimally responsive. She was placed on BiPAP on arrival to the emergency department and a blood gas drawn 1 hour thereafter showed a pH of 7.335 and a pCO2 of 69.1. She is much more awake and alert at this time. She has no current complaints and denies fever, chills, sweats, sinus congestion, sore throat, chest pain, shortness of breath, cough, nausea, vomiting, and diarrhea. Review of Systems Review of Systems: Twelve systems were reviewed and are negative except for as per HPI. [facility] Past Medical History Medical History (Updated 04/29/22 @ 20:17 by Chel York PA-C) Asthma-COPD overlap syndrome Cerebrovascular accident Chronic respiratory failure with hypoxia and hypercapnia Deep venous thrombosis Gastroesophageal reflux disease Hypertension Migraine headache Obesity hypoventilation syndrome Schizophrenia Type 2 diabetes mellitus Diet-controlled. Surgical History Surgical History History of arthroscopy of right knee History of section, classical History of cholecystectomy History of left hip replacement History of sinus surgery Family History Family History Mother Heart disease Cancer Cerebrovascular accident Sibling Pacemaker Social History Social History (Updated 04/29/22 @ 20:12 by Chel York PA-C) Social History: Lives at: [facility]. Likes to color and do crafts. Her surrogate is Carri Rangel her major case detective. She does have 4 children which she stated are all over the area. She also stated that her son Jorge is here however he does not know much about her. Code status: Full code Smoking packs per day: 1 Smoking cigarettes per day: 20.0 Years smoked: 21 Smoking pack-years: 21.00 Smoking status: Former smoker Tobacco type: cigarettes Second hand tobacco smoke exposure: Yes Additional smoking assessment comments: Patient was around a lot of folks that smoked. Alcohol intake: never Substance use: never Substance use type: does not use Lack of Transportation: No Lack of Food: Never True Current Housing: I Have Housing Concerned About Future Housing: No Difficulty Paying Gas/Electric Bills: No Difficulty Paying for Meds: No Currently Unemployed: No Education: High School Diploma/GED Difficulty w/ Childcare or Family Care: Decline to Answer Living arrangements: [facility] Additional living arrangements comments: Resident at [facility]. Occupation/Education: retired Additional occupation/education comments: Disabled. Gender identity (if verbalized by the patient): Female Sexual Orientation (if Verbalized by the Patient): Straight or Heterosexual Spiritual care concerns: No Agree to blood products: Yes Meds Home Medications and Allergies Home Medications Medication Instructions Recorded Confirmed Type aripiprazole 30 mg tablet 30 mg PO DAILY 01/24/20 04/29/22 History benztropine 0.5 mg tablet 0.5 mg PO BID 01/24/20 04/29/22 History carbamazepine 200 mg tablet 200 mg PO BID 01/24/20 04/29/22 History docusate sodium 100 mg capsule 100 mg PO DAILY 01/24/20 04/29/22 History
--- NOTE | 2022-04-29 13:58 | PC.NURSE ---
LALO Youssef, called from [facility]. States patient is able to swallow meds whole, feed herself, uses a wheelchair for distances but is able to stand and pivot to bathroom at baseline.
--- NOTE | 2022-04-29 14:01 | PC.NURSE ---
Meds updated for according to custodial records.
--- NOTE | 2022-04-29 16:00 | PC.NURSE ---
ANANYA Meeks aware of BP. No new orders at this time.
--- NOTE | 2022-04-29 16:59 | PC.NURSE ---
Called report to Laura in IMU
--- NOTE | 2022-04-29 17:30 | PC.NURSE ---
Pt lethargic during most of the shift. Upon checking and taking upstairs for admission, patient is alert, answering questions appropriately, waving at people in the hallway and saying hello as she is being transported upstairs. Improvement in status.
--- NOTE | 2022-04-29 18:12 | PC.NURSE ---
Spoke with Domonique at [facility]. Aware patient has been admitted.
[2022-04-29 20:54] LABS: Glucose Point of Care 88 mg/dl (65-105)
[2022-04-29] MEDS: traZODone HCL 50 MG TABLET PO (21:49)
[2022-04-29] MEDS: ACETAMINOPHEN 500 MG TABLET 1000 MG PO (21:49)
[2022-04-29] MEDS: DIVALPROEX SODIUM DR 250 MG TABEC 500 MG PO (21:49)
[2022-04-29] MEDS: carvediloL 3.125 MG TABLET PO (21:50)
[2022-04-29] MEDS: ATORVASTATIN 20 MG TABLET PO (21:50)
[2022-04-29] MEDS: GABAPENTIN 400 MG CAPSULE PO (21:50)
[2022-04-29] MEDS: carBAMazepine 200 MG TABLET PO (21:50)
[2022-04-29] MEDS: hydrALAZINE HCL 50 MG TABLET 100 MG PO (21:50)
[2022-04-29] MEDS: BENZTROPINE MESYLATE 0.5 MG TABLET PO (21:50)
[2022-04-29] MEDS: cloNIDine HCL 0.1 MG TABLET 0.3 MG PO (21:53)
[2022-04-30] VITALS (14 sets, daily range): BP systolic 100–188; BP diastolic 54–96; PULSE 56–76; RESP 18–20; TEMP 35.7–36.7; O2SAT 94–100
[2022-04-30] MEDS: IPRATROPIUM BR 0.02% INH SOLN 0.5 MG/2.5 ML VIAL INHALATION ×2 (02:10→08:02)
[2022-04-30] MEDS: ALBUTEROL SULFATE NEB 2.5 MG/3 ML INH INHALATION ×2 (02:10→08:02)
[2022-04-30 04:10] LABS: Hematocrit 38.9 % (37.0-47.0); Hemoglobin 12.8 g/dL (12.0-15.0); Mean Corpuscular HGB Conc 32.9 g/dl (32-36); Mean Corpuscular Volume 94.2 fl (80-100); Mean Platelet Volume 10.7 fl (7.4-10.4); Platelet Count Result 166 k/mm3 (150-375); Red Blood Count 4.13 M/mm3 (4.2-5.4); Red Cell Distribution Width 11.9 % (11.5-14.5); White Blood Count 3.5 K/mm3 (4.5-10.0)
[2022-04-30 04:22] LABS: Anion Gap 0 mmol/L (8-16); Blood Urea Nitrogen 20 mg/dL (7-17); Calcium 8.7 mg/dL (8.4-10.2); Carbon Dioxide 38 mmol/L (22-30); Chloride 100 mmol/L (98-107); Estimated CRCL calculation 62 ml/min; Estimated Glomerular Filt Rate > 60; Glucose 97 mg/dL (65-110); Magnesium 2.2 mg/dL (1.6-2.3); Potassium 3.8 mmol/L (3.4-5.0); Sodium 138 mmol/L (137-145)
[2022-04-30 05:55] LABS: Alveolar/Arterial O2 Gradient 62.1 mmHg; Base Excess ABG 11.1 mEq/l (+/-2.0); Fractional Inspired Oxygen 32 %; HCO3 ABG 38.1 mEq/l (22.0-26.0); Oxygen Content ABG 18.9 %vol (16.0-22.0); Oxygen Saturation ABG 97.2 % (95.0-100.0); Oxyhemoglobin 96.1 % THb (90.0-100.0); PO2 ABG 95.4 mmHg (80.0-100.0); PO2 FiO2 Ratio Arterial Blood 2.98 %; Total Hemoglobin 13.9 g/dL (12.0-18.0); pH ABG 7.418 (7.350-7.450)
[2022-04-30 05:57] LABS: Device NASAL CANNULA; Modified Allen's Test Pass; PCO2 ABG 60.4 mmHg (35.0-45.0); Site Drawn LEFT RADIAL
[2022-04-30] MEDS: OLANZapine 5 MG TABLET 10 MG PO (08:32)
[2022-04-30] MEDS: hydrALAZINE HCL 50 MG TABLET 100 MG PO ×2 (08:32→12:36)
[2022-04-30] MEDS: ACETAMINOPHEN 500 MG TABLET 1000 MG PO (08:32)
[2022-04-30] MEDS: BENZTROPINE MESYLATE 0.5 MG TABLET PO (08:33)
[2022-04-30] MEDS: ARIPiprazole 10 MG TABLET 30 MG PO (08:33)
[2022-04-30] MEDS: SERTRALINE HCL 50 MG TABLET PO (08:33)
[2022-04-30] MEDS: ASPIRIN 81 MG ENTERIC TABLET PO (08:33)
[2022-04-30] MEDS: DIVALPROEX SODIUM DR 250 MG TABEC 500 MG PO (08:33)
[2022-04-30] MEDS: NIFEdipine 30 MG TAB.ER.24 60 MG PO (08:33)
[2022-04-30] MEDS: carBAMazepine 200 MG TABLET PO (08:33)
[2022-04-30] MEDS: ENOXAPARIN 40 MG/0.4 ML SYRINGE SUB-Q (08:34)
[2022-04-30] MEDS: cloNIDine HCL 0.1 MG TABLET 0.3 MG PO (08:34)
[2022-04-30] MEDS: GABAPENTIN 400 MG CAPSULE PO ×2 (08:34→12:36)
[2022-04-30] MEDS: FERROUS SULFATE 324 MG TABLET PO (08:34)
[2022-04-30] MEDS: polyethylene glycoL 3350 17 GM POWD.PACK PO (08:34)
[2022-04-30] MEDS: MAGNESIUM OXIDE 400 MG TABLET PO (08:34)
[2022-04-30] MEDS: POTASSIUM CHLORIDE 10 MEQ TABLET.ER PO (08:34)
[2022-04-30] MEDS: DOCUSATE SODIUM 100 MG CAPSULE PO (08:34)
[2022-04-30] MEDS: SERTRALINE HCL 25 MG TABLET PO (08:34)
[2022-04-30] MEDS: carvediloL 3.125 MG TABLET PO (08:34)
[2022-04-30] MEDS: MICONAZOLE NITRATE 2% CREAM 30 GM TUBE 1 APPLIC TOPICAL (08:35)
[2022-04-30] MEDS: PANTOPRAZOLE 40 MG TABLET PO (08:35)
[2022-04-30] MEDS: HALOPERIDOL 5 MG TABLET PO (08:55)
--- NOTE | 2022-04-30 10:37 | PM.DS ---
DS: Admitting Diagnosis Discharge Date 04/30/22 Admitting Diagnosis Lethargy DS: Discharge Diagnosis Discharge Diagnosis (1) Acute on chronic respiratory failure with hypoxia and hypercapnia: Code(s): J96.21 - Acute and chronic respiratory failure with hypoxia; J96.22 - Acute and chronic respiratory failure with hypercapnia Status: Acute (2) Altered mental status: Code(s): R41.82 - Altered mental status, unspecified Status: Acute (3) Asthma-COPD overlap syndrome: Code(s): J44.9 - Chronic obstructive pulmonary disease, unspecified Status: Acute (4) Obesity hypoventilation syndrome: Code(s): E66.2 - Morbid (severe) obesity with alveolar hypoventilation Status: Acute (5) Hypertension: Code(s): I10 - Essential (primary) hypertension Status: Acute (6) Schizophrenia: Qualifiers: Schizophrenia type: unspecified Qualified Code(s): F20.9 - Schizophrenia, unspecified Code(s): F20.9 - Schizophrenia, unspecified Status: Chronic DS: Summary Hospital Course Reason for hospitalization: 71yo female with chronic respiratory failure on oxygen, obesity hypoventilation syndrome, coronary artery disease, congestive heart failure, hypertension, diabetes, schizophrenia, and depression who presented to the emergency department via EMS from [facility] for evaluation of lethargy. Please see H&P for details. Hospital Course: Patient here for lethargy and found to have acute on chronic respiratory failure. Staff found her without her oxygen and she was reportedly lethargic and minimally responsive. She also received Haldol prior to the onset of her symptoms which also contributed to her symptoms. She was placed on BiPAP on arrival to the emergency department and a blood gas drawn 1 hour thereafter showed ABG 7.33/69/71 on 2L. With the BiPAP, she had clinically improvement. CT brain showing no acute findings. Chest x-ray was mostly clear and no evidence to suggest asthma or COPD exacerbation. Her home medications were resumed. WBC slightly now but more chronic and felt related to her medications. CBC otherwise was normal. EKG showed T wave changes but more chronic findings. ABG 7.42/60/95 on 3L. She had clinical improvement. She was able to be discharged on 04/30/22. She was agreeable to wear the BiPAP so will send her back with the current settings. Status at Discharge Cognitive/behavioral status at discharge: Stable Time Spent with Patient Time attestation: Total time spent providing and/or coordinating discharge services: 39 minutes Time spent: Greater than 30 minutes Exam Narrative: AF 97.3 188/96 76 18 97% 3L Gen - NARD Chest - few basilar crackles o/w distant breath sounds. No wheezing. nml RR CV - RRR S1/S2. Tele showing PVCs Abd - Soft, NT/ND, Positive BS Ext - No pedal edema Psych - pleasant and cooperative Skin - Warm and dry DS: Data Data Completed and Pending Labs on day of discharge: Labs from last 24 hours 04/30/22 04/30/22 04/30/22 05:36 03:52 03:52 WBC 3.5 L RBC 4.13 L Hgb 12.8 Hct 38.9 MCV 94.2 D MCH 31.0 MCHC 32.9 RDW 11.9 Plt Count 166 MPV 10.7 H Immature Gran % (Auto) Neut % (Auto) Lymph % (Auto) Kemper % (Auto) Eos % (Auto) Baso % (Auto) Lymph # (Auto) Kemper # (Auto) Eos # (Auto) Baso # (Auto) Abs Immat Gran (auto) Absolute Neuts (auto) Absolute Nucleated RBC Nucleated RBC % PT INR APTT Puncture Site Left radial ABG pH 7.418 ABG pCO2 60.4 H* ABG pO2 95.4 ABG PO2/FiO2 Ratio 2.98 ABG HCO3 38.1 H ABG O2 Saturation 97.2 ABG O2 Content 18.9 ABG Base Excess 11.1 A-a Gradient 62.1 Oxyhemoglobin 96.1 Carboxyhemoglobin Methemoglobin Reduced Hemoglobin Total Hemoglobin 13.9 O2 Delivery Device Nasal cannula O2 Liters/Min 3.0 Vent Rate FiO2 32 Expirator
== END 2022-04-30 13:58 | DRG 133 ==
LOC: ANHED 12:47 → ANHIMU 16:37
PROVIDERS: Emergency Medicine; Physician Assistant; Admitting Provider Internal Medicine; Emergency Provider Physician Assistant; Visit Provider Internal Medicine
DX: J96.21 Acute and chronic respiratory failure with hypoxia (principal); E66.2 Morbid (severe) obesity with alveolar hypoventilation; I50.9 Heart failure, unspecified; E11.9 Type 2 diabetes mellitus without complications; J44.9 Chronic obstructive pulmonary disease, unspecified; R41.82 Altered mental status, unspecified; J96.22 Acute and chronic respiratory failure with hypercapnia; Z68.36 Body mass index [BMI] 36.0-36.9, adult; I10 Essential (primary) hypertension; F20.9 Schizophrenia, unspecified; I25.10 Atherosclerotic heart disease of native coronary artery without angina pectoris; F32.A Depression, unspecified
CPT/HCPCS: 36415; 36600; 70450; 71045; 80048; 80053; 80307; 81001; 82375; 82805; 82948; 83050; 83605; 83735; 83880; 84484; 85025; 85027; 85610; 85730; 86140; 87636; 93005; 94002; 94640; 99285; A9270; J1650

== ENCOUNTER 2022-05-14 12:20 | Inpatient (IN) | payer OTHER, SELFPAY ==
[2022-05-14] VITALS (34 sets, daily range): BP systolic 117–190; BP diastolic 70–99; PULSE 51–106; RESP 10–25; TEMP 35.8–36.7; O2SAT 91–100; BMI 36.8
--- NOTE | ~2022-05-14 | XR_ITS ---
XR hand LT min 3V DATE: 05/14/2022 14:02 INDICATION: Pain, swelling TECHNIQUE: 3 views of left hand COMPARISON: None FINDINGS: No fracture or dislocation, periosteal reaction or bone destruction. Joint spaces are prese rved. No erosive change or chondrocalcinosis. IMPRESSION: Negative Reviewed, dictated and finalized at location B. IMPRESSION: Negative
--- NOTE | ~2022-05-14 | XR_ITS ---
Portable chest x-ray Comparison: 04/29/2022 Clinical History: Weakness Findings: Lungs are clear, without focal consolidation or pleural effusion. Cardiomediastinal silho uette is stable. Bones and soft tissues are unremarkable. Impression: Clear lungs. Reviewed, dictated and finalized at location . Impression: Clear lungs.
--- NOTE | ~2022-05-14 | XR_ITS ---
EXAMINATION: XR knee RT 3V DATE: 05/14/2022 14:02 INDICATION: Right knee pain TECHNIQUE: Two views of the right knee were obtained. COMPARISON: 02/01/2022 FINDINGS: Alignment is normal. No fracture or osteochondral lesion. There is severe osteoarthritis in the medial compartment. There is moderate osteoarthritis in the lateral compartment. Soft tissues ar e unremarkable. IMPRESSION: 1. Osteoarthritis without acute osseous abnormality. Reviewed, dictated and finalized at location F.
[2022-05-14 12:53] LABS: Basophils Percent Auto 0.8 % (0.2-1.2); Eosinophils Absolute Auto 0.1 K/mm3 (0-0.3); Eosinophils Percent Auto 2.1 % (0-4.4); Hematocrit 38.4 % (37.0-47.0); Immature Granulocyte Absolute 0.01 K/mm3 (0.00-0.031); Immature Granulocyte Percent A 0.2 % (0-0.5); Mean Corpuscular HGB Conc 31.3 g/dl (32-36); Mean Corpuscular Hemoglobin 31.7 pg (26-34); Mean Corpuscular Volume 101.6 fl (80-100); Mean Platelet Volume 10.5 fl (7.4-10.4); Monocytes Absolute Auto 0.5 K/mm3 (0.1-0.6); Monocytes Percent Auto 10.2 % (2.6-8.5); Neutrophils Absolute Auto 2.5 K/mm3 (1.3-6.7); Neutrophils Percent Auto 52.7 % (45.5-73.1); Platelet Count Result 142 k/mm3 (150-375); Red Blood Count 3.78 M/mm3 (4.2-5.4); White Blood Count 4.7 K/mm3 (4.5-10.0)
--- NOTE | 2022-05-14 12:56 | PC.NURSE ---
Pt moved from room 11 to room 10 at this time, due to call light not working.
[2022-05-14 13:02] LABS: Alanine Aminotransferase 11 U/L (6-35); Albumin Level 3.8 g/dL (3.5-5.1); Alkaline Phosphatase 55 U/L (38-126); Aspartate Amino Transferase 17 U/L (14-36); Bilirubin,Total 0.4 mg/dL (0.2-1.3); Blood Urea Nitrogen 24 mg/dL (7-17); Calcium 8.8 mg/dL (8.4-10.2); Carbon Dioxide > 40 mmol/L (22-30); Chloride 97 mmol/L (98-107); Estimated CRCL calculation 53 ml/min; Estimated Glomerular Filt Rate > 60; Glucose 122 mg/dL (65-110); INR 1.1; Potassium 3.9 mmol/L (3.4-5.0); Prothrombin Time 13.8 Seconds (11.1-14.7); Sodium 141 mmol/L (137-145)
[2022-05-14 13:02] LABS: Base Excess ABG 5.9 mEq/l (+/-2.0); Fractional Inspired Oxygen 32 %; HCO3 ABG 34.3 mEq/l (22.0-26.0); PO2 ABG 58.1 mmHg (80.0-100.0); PO2 FiO2 Ratio Arterial Blood 1.82 %; Total Hemoglobin 12.3 g/dL (12.0-18.0); pH ABG 7.307 (7.350-7.450)
[2022-05-14 13:03] LABS: Partial Thromboplastin Time 27.3 SECONDS (22.3-36.8)
[2022-05-14 13:06] LABS: PCO2 ABG 70.1 mmHg (35.0-45.0)
[2022-05-14 13:07] LABS: Device NASAL CANNULA; Modified Allen's Test Pass; Oxygen Saturation ABG 86.5 % (95.0-100.0); Oxyhemoglobin 86.5 % THb (90.0-100.0); Site Drawn RIGHT RADIAL
[2022-05-14] MEDS: ONDANSETRON INJ 4 MG/2 ML VIAL IV PUSH (13:35)
--- NOTE | 2022-05-14 13:39 | ED.GENADULT ---
HPI - General Adult General Chief complaint: Altered Mental Status Stated complaint: ams Time Seen by Provider: 05/14/22 12:34 History of Present Illness HPI narrative: Patient is a 71-year-old female who presents ER with altered mental status. Fall found at her snf unresponsive on the ground. They thought patient was coding. She turned out to have a pulse. EMS arrived and placed her on oxygen as her O2 sat was low. Patient alert and orient x3 though she is kind to fall asleep. She reports she wears 3 L of O2 chronically. She is unsure why she is not wearing at the snf. She has no complaints of chest pain or shortness of breath. She does report some right knee pain and left hand pain. Related Data Home Medications Medication Instructions Recorded Confirmed aripiprazole 30 mg tablet 30 mg PO DAILY 01/24/20 05/14/22 benztropine 0.5 mg tablet 0.5 mg PO BID 01/24/20 05/14/22 carbamazepine 200 mg tablet 200 mg PO BID 01/24/20 05/14/22 docusate sodium 100 mg capsule 100 mg PO DAILY 01/24/20 05/14/22 ergocalciferol (vitamin D2) 1,250 1,250 mcg PO MONTHLY 01/24/20 05/14/22 mcg (50,000 unit) capsule hydralazine 100 mg tablet 100 mg PO TID 01/24/20 05/14/22 aspirin 81 mg tablet,delayed 81 mg PO DAILY 01/25/20 05/14/22 release haloperidol 5 mg tablet 5 mg PO BID 01/25/20 05/14/22 polyethylene glycol See Rx Instructions .Route .COMPLEX 01/25/20 05/14/22 sertraline 25 mg tablet 25 mg PO DAILY 01/25/20 05/14/22 sertraline 50 mg tablet 50 mg PO DAILY 01/25/20 05/14/22 trazodone 50 mg tablet 50 mg PO HS 01/25/20 05/14/22 carvedilol 3.125 mg tablet 3.125 mg PO BID 05/22/21 05/14/22 nifedipine 60 mg tablet,extended 60 mg PO DAILY 05/22/21 05/14/22 release Artificial Tears 1 drp EACH EYE Q6H PRN Dry Eye(S) 09/10/21 05/14/22 acetaminophen 500 mg tablet 1,000 mg PO BID 09/10/21 05/14/22 atorvastatin 20 mg tablet 20 mg PO HS 09/10/21 05/14/22 clonidine HCl 0.3 mg tablet 0.3 mg PO Q12H 09/10/21 05/14/22 olanzapine 10 mg tablet 10 mg PO DAILY 09/10/21 05/14/22 divalproex 500 mg tablet,delayed 500 mg PO BID 09/11/21 05/14/22 release ferrous sulfate 325 mg (65 mg 325 mg PO DAILY 02/02/22 05/14/22 iron) tablet albuterol sulfate 2.5 mg/3 mL 2.5 mg inhalation Q6H 04/29/22 05/14/22 (0.083 %) solution for nebulization gabapentin 400 mg capsule 400 mg PO TID 04/29/22 05/14/22 ipratropium bromide 0.02 % 0.5 mg inhalation Q6H 04/29/22 05/14/22 solution for inhalation omeprazole 20 mg capsule,delayed 20 mg PO DAILY 04/29/22 05/14/22 release polyvinyl alcohol 1.4 % eye drops 1 drp EACH EYE Q6H PRN Dry Eye(S) 04/29/22 05/14/22 Allergies Allergy/AdvReac Type Severity Reaction Status Date / Time Penicillins Allergy Unknown Hives / Verified 05/14/22 13:43 Red Face PMFSH Past Medical History Medical History Asthma-COPD overlap syndrome Cerebrovascular accident Chronic respiratory failure with hypoxia and hypercapnia Deep venous thrombosis Gastroesophageal reflux disease Hypertension Migraine headache Obesity hypoventilation syndrome Schizophrenia Type 2 diabetes mellitus Diet-controlled. Surgical History Surgical History History of arthroscopy of right knee History of section, classical History of cholecystectomy History of left hip replacement History of sinus surgery Family History Family History Mother Heart disease Cancer Cerebrovascular accident Sibling Pacemaker Social History Social History Social History: Lives at: [facility]. Likes to color and do crafts. Her surrogate is Carri Rangel her manager rn case. She does have 4 children which she stated are all over the area. She also stated that her son Jorge is here however he does not
[2022-05-14 14:07] LABS: Appearance Urine Clear (Clear); Bacteria Urine None Seen /hpf; Bilirubin Urine 1+ (Negative); Blood Urine Negative (Negative); Color Urine Dark Yellow (Yellow); Glucose Urine UA Negative (Negative); Ketones Urine Trace mg/dL (Negative); Leukocyte Esterase Ur Negative LEU/UL (Negative); Need Manual Microscopic Reviewed; Nitrate Urine Negative (Negative); Protein Urine Trace mg/dL (Negative); RBC Urine 0-2 /hpf (0-2); Specific Grav Ur 1.029 (1.001-1.035); Squamous Epithelial Cell Urine None seen /hpf (Few); WBC Urine 0-5 /hpf; pH Urine 5.5 (5.0-9.0)
[2022-05-14 14:08] LABS: Add Urine Microscopic? YES
--- NOTE | 2022-05-14 15:00 | PM.IMHP ---
H&P: HPI History of Present Illness Date/Time: 05/14/22 15:00 Chief Complaint: Hypoxic, confusion. Narrative: This is a 71-year-old female with chronic respiratory failure on oxygen, obesity hypoventilation syndrome, coronary artery disease, congestive heart failure, hypertension, diabetes, schizophrenia, and depression who presented to the emergency department via EMS from [facility] for evaluation of confusion and hypoxia. Patient provides the following history however some of the following is supplemented via a review of her electronic medical records as she is not the greatest historian. She is known to myself and the hospitalist service from several previous admissions for acute on chronic hypercapnic respiratory failure and she was most recently admitted overnight just 2 weeks ago for the same. This morning staff apparently found her unresponsive with an SpO2 of 85%. EMS was reportedly called out for cardiac arrest however the patient had a pulse on their arrival and no CPR was in progress. She was placed on BiPAP on arrival as her ABG showed a pH of 7.307, pCO2 70.1, and bicarb of 34.3. She is much more awake now and she has no current complaints aside from left hand pain and right knee pain of which she cannot give me specifics. She admits that she frequently pulls off her BiPAP at night during this sleep and she states she does not remember doing that. She denies fever, chills, sweats, headache, cold and flu symptoms, chest pain, pleuritic pain, palpitations, cough, nausea, vomiting, diarrhea, and dysuria. She has not had any recent falls or head trauma. Review of Systems Review of Systems: Twelve systems were reviewed and are negative except for as per HPI. [facility] Past Medical History Medical History Asthma-COPD overlap syndrome Cerebrovascular accident Chronic respiratory failure with hypoxia and hypercapnia Deep venous thrombosis Gastroesophageal reflux disease Hypertension Migraine headache Obesity hypoventilation syndrome Schizophrenia Type 2 diabetes mellitus Diet-controlled. Surgical History Surgical History History of arthroscopy of right knee History of section, classical History of cholecystectomy History of left hip replacement History of sinus surgery Family History Family History Mother Heart disease Cancer Cerebrovascular accident Sibling Pacemaker Social History Social History (Updated 05/14/22 @ 21:47 by Chel York PA-C) Social History: Lives at: [facility]. Likes to color and do crafts. Her surrogate is Carri Rangel her vocational case manager. She does have 4 children which she stated are all over the area. She also stated that her son Jorge is here however he does not know much about her. Code status: Full code Smoking packs per day: 1 Smoking cigarettes per day: 20.0 Years smoked: 21 Smoking pack-years: 21.00 Smoking status: Former smoker Tobacco type: cigarettes Second hand tobacco smoke exposure: Yes Additional smoking assessment comments: Patient was around a lot of folks that smoked. Alcohol intake: never Substance use: never Substance use type: does not use Lack of Transportation: No Lack of Food: Never True Current Housing: I Have Housing Concerned About Future Housing: No Difficulty Paying Gas/Electric Bills: No Difficulty Paying for Meds: No Currently Unemployed: No Education: High School Diploma/GED Difficulty w/ Childcare or Family Care: No Living arrangements: snf Additional living arrangements comments: Resident at [facility]. Occupation/Education: retired Additional occupation/education comments: Disabled. Spiritual care concerns: Yes Agree to blood products: Yes Meds Home Medication
[2022-05-14 15:53] LABS: Influenza A QL RT-PCR Negative (Negative); Influenza B QL RT-PCR Negative (Negative); SARS-CoV-2 RNA PCR Negative
[2022-05-14 16:31] LABS: Alveolar/Arterial O2 Gradient 59.2 mmHg; Base Excess ABG 11.9 mEq/l (+/-2.0); Fractional Inspired Oxygen 35 %; HCO3 ABG 40.7 mEq/l (22.0-26.0); Oxygen Content ABG 17.4 %vol (16.0-22.0); Oxyhemoglobin 96.1 % THb (90.0-100.0); PO2 ABG 101.2 mmHg (80.0-100.0); PO2 FiO2 Ratio Arterial Blood 2.89 %; Total Hemoglobin 12.8 g/dL (12.0-18.0); pH ABG 7.343 (7.350-7.450)
[2022-05-14 16:35] LABS: Device NON-INVASIVE VENT; Modified Allen's Test Pass; PCO2 ABG 76.7 mmHg (35.0-45.0); Site Drawn RIGHT RADIAL
[2022-05-14 16:36] LABS: Non-Invasive Expiratory Pressure 7 CMH2O; Non-Invasive Inspiratory Pressure 18 CMH2O; Non-Invasive Vent Rate 18 /MIN
--- NOTE | 2022-05-14 16:45 | ADMGEN ---
This patient, Yenny Hernandez, was admitted to IMU Room 207-01. Patient/family oriented to hospital policies and general routines including ID bracelet, bed and alarms, visiting hours, pain management, procedures, bathroom and other care routines, personal items, smoking policy, room service/diet, and visiting hours. Information on how to activate the Rapid Response Team has been discussed. Patient/Family are encouraged to report perceived risks to care and to ask questions if they do not understand what they are told or what they should do.
--- NOTE | 2022-05-14 16:54 | PC.NURSE ---
Son, Dileep, called for update of pt. Update given and son aware for admission.
[2022-05-14 19:48] LABS: Alveolar/Arterial O2 Gradient 70.7 mmHg; Base Excess ABG 6.4 mEq/l (+/-2.0); Fractional Inspired Oxygen 30 %; HCO3 ABG 33.9 mEq/l (22.0-26.0); Oxygen Content ABG 17.2 %vol (16.0-22.0); Oxygen Saturation ABG 92.9 % (95.0-100.0); Oxyhemoglobin 92.3 % THb (90.0-100.0); PO2 FiO2 Ratio Arterial Blood 2.33 %; Total Hemoglobin 13.2 g/dL (12.0-18.0); pH ABG 7.353 (7.350-7.450)
[2022-05-14 19:53] LABS: Device BIPAP; Modified Allen's Test Pass; PCO2 ABG 62.3 mmHg (35.0-45.0); Site Drawn LEFT RADIAL
[2022-05-14 19:54] LABS: Expiratory Pressure 8 cmH2O; Inspiratory Pressure 20 cmH2O
[2022-05-14] MEDS: hydrALAZINE HCL 50 MG TABLET 100 MG PO (23:01)
[2022-05-14] MEDS: DIVALPROEX SODIUM DR 250 MG TABEC 500 MG PO (23:02)
[2022-05-14] MEDS: GABAPENTIN 400 MG CAPSULE PO (23:03)
[2022-05-14] MEDS: cloNIDine HCL 0.1 MG TABLET 0.3 MG PO (23:03)
[2022-05-14] MEDS: HALOPERIDOL 5 MG TABLET PO (23:03)
[2022-05-14] MEDS: carvediloL 3.125 MG TABLET PO (23:04)
[2022-05-14] MEDS: carBAMazepine 200 MG TABLET PO (23:05)
[2022-05-14] MEDS: traZODone HCL 50 MG TABLET PO (23:05)
[2022-05-14] MEDS: BENZTROPINE MESYLATE 0.5 MG TABLET PO (23:05)
[2022-05-14] MEDS: ATORVASTATIN 20 MG TABLET PO (23:05)
[2022-05-15] VITALS (18 sets, daily range): BP systolic 150–162; BP diastolic 60–86; PULSE 57–90; RESP 18–20; TEMP 36.2–36.4; O2SAT 94–100
[2022-05-15] MEDS: IPRATROPIUM BR 0.02% INH SOLN 0.5 MG/2.5 ML VIAL INHALATION ×3 (02:34→13:44)
[2022-05-15] MEDS: ALBUTEROL SULFATE NEB 2.5 MG/3 ML INH INHALATION ×3 (02:34→13:44)
[2022-05-15 04:25] LABS: Hematocrit 37.3 % (37.0-47.0); Hemoglobin 12.3 g/dL (12.0-15.0); Immature Platelet Fraction Pct 6.5 % (0.9-11.2); Mean Corpuscular Hemoglobin 32.2 pg (26-34); Mean Corpuscular Volume 97.6 fl (80-100); Mean Platelet Volume 10.9 fl (7.4-10.4); Platelet Count Result 148 k/mm3 (150-375); Red Blood Count 3.82 M/mm3 (4.2-5.4); White Blood Count 3.7 K/mm3 (4.5-10.0)
[2022-05-15 04:38] LABS: Anion Gap 2 mmol/L (8-16); Blood Urea Nitrogen 27 mg/dL (7-17); Calcium 9.3 mg/dL (8.4-10.2); Carbon Dioxide 39 mmol/L (22-30); Chloride 98 mmol/L (98-107); Estimated CRCL calculation 55 ml/min; Estimated Glomerular Filt Rate > 60; Glucose 86 mg/dL (65-110); Magnesium 2.2 mg/dL (1.6-2.3); Sodium 139 mmol/L (137-145)
[2022-05-15] MEDS: hydrALAZINE HCL 50 MG TABLET 100 MG PO (09:47)
[2022-05-15] MEDS: NIFEdipine 30 MG TAB.ER.24 60 MG PO (09:47)
[2022-05-15] MEDS: ACETAMINOPHEN 500 MG TABLET 1000 MG PO (09:47)
[2022-05-15] MEDS: OLANZapine 5 MG TABLET 10 MG PO (09:47)
[2022-05-15] MEDS: FERROUS SULFATE 324 MG TABLET PO (09:47)
[2022-05-15] MEDS: SERTRALINE HCL 50 MG TABLET PO (09:47)
[2022-05-15] MEDS: PANTOPRAZOLE 40 MG TABLET PO (09:47)
[2022-05-15] MEDS: HALOPERIDOL 5 MG TABLET PO (09:48)
[2022-05-15] MEDS: ARIPiprazole 10 MG TABLET 30 MG PO (09:48)
[2022-05-15] MEDS: DIVALPROEX SODIUM DR 250 MG TABEC 500 MG PO (09:48)
[2022-05-15] MEDS: SERTRALINE HCL 25 MG TABLET PO (09:48)
[2022-05-15] MEDS: BENZTROPINE MESYLATE 0.5 MG TABLET PO (09:48)
[2022-05-15] MEDS: cloNIDine HCL 0.1 MG TABLET 0.3 MG PO (09:48)
[2022-05-15] MEDS: carBAMazepine 200 MG TABLET PO (09:48)
[2022-05-15] MEDS: ASPIRIN 81 MG ENTERIC TABLET PO (09:49)
[2022-05-15] MEDS: GABAPENTIN 400 MG CAPSULE PO (09:49)
[2022-05-15] MEDS: DOCUSATE SODIUM 100 MG CAPSULE PO (09:49)
[2022-05-15] MEDS: carvediloL 3.125 MG TABLET PO (09:49)
[2022-05-15] MEDS: polyethylene glycoL 3350 17 GM POWD.PACK PO (09:49)
[2022-05-15] MEDS: ENOXAPARIN 40 MG/0.4 ML SYRINGE SUB-Q (09:50)
[2022-05-15 12:12] LABS: EDCOVIDSCREEN Negative (Negative)
--- NOTE | 2022-05-15 14:32 | PM.DS ---
DS: Admitting Diagnosis Discharge Date 05/15/2022 Admitting Diagnosis Hypoxic, confusion. DS: Discharge Diagnosis Discharge Diagnosis (1) Chronic respiratory failure with hypoxia and hypercapnia: Code(s): J96.11 - Chronic respiratory failure with hypoxia; J96.12 - Chronic respiratory failure with hypercapnia Status: Acute (2) Altered mental status: Code(s): R41.82 - Altered mental status, unspecified Status: Acute (3) Asthma-COPD overlap syndrome: Code(s): J44.9 - Chronic obstructive pulmonary disease, unspecified Status: Acute (4) Obesity hypoventilation syndrome: Code(s): E66.2 - Morbid (severe) obesity with alveolar hypoventilation Status: Acute (5) Type 2 diabetes mellitus: Code(s): E11.9 - Type 2 diabetes mellitus without complications Status: Acute (6) Hypertension: Code(s): I10 - Essential (primary) hypertension Status: Acute (7) Schizophrenia: Qualifiers: Schizophrenia type: unspecified Qualified Code(s): F20.9 - Schizophrenia, unspecified Code(s): F20.9 - Schizophrenia, unspecified Status: Chronic Plan The patient presented to the emergency department via EMS for evaluation after she was found minimally responsive and hypoxic as per HPI. Labs, imaging, EKG, and all reports were personally reviewed. According to documentation, the patient was found essentially unresponsive and hypoxic. ABG today was as per HPI and she was started on BiPAP with improvement in her respiratory acidosis. She is back to her baseline mentation thus her altered mental status can be attributed to the hypercapnia. She is to wear her BiPAP with naps and at nighttime and the importance of being compliant with the same was discussed. There is no history or physical exam signs to suggest acute asthma or COPD exacerbations. Vital signs were reviewed and they have been stable. Her home medications will be reviewed and resumed as appropriate. DS: Summary Hospital Course Reason for hospitalization: Hypoxic, confusion. Narrative: This is a 71-year-old female with chronic respiratory failure on oxygen, obesity hypoventilation syndrome, coronary artery disease, congestive heart failure, hypertension, diabetes, schizophrenia, and depression who presented to the emergency department via EMS from [facility] for evaluation of confusion and hypoxia. Patient provides the following history however some of the following is supplemented via a review of her electronic medical records as she is not the greatest historian. She is known to myself and the hospitalist service from several previous admissions for acute on chronic hypercapnic respiratory failure and she was most recently admitted overnight just 2 weeks ago for the same. This morning staff apparently found her unresponsive with an SpO2 of 85%. EMS was reportedly called out for cardiac arrest however the patient had a pulse on their arrival and no CPR was in progress. She was placed on BiPAP on arrival as her ABG showed a pH of 7.307, pCO2 70.1, and bicarb of 34.3. She is much more awake now and she has no current complaints aside from left hand pain and right knee pain of which she cannot give me specifics. She admits that she frequently pulls off her BiPAP at night during this sleep and she states she does not remember doing that. She denies fever, chills, sweats, headache, cold and flu symptoms, chest pain, pleuritic pain, palpitations, cough, nausea, vomiting, diarrhea, and dysuria. She has not had any recent falls or head trauma. Hospital Course: Patient was found hypoxic patient is reluctant to wear her BiPAP, patient was placed on BiPAP while in the hospital her symptoms have improved and patient is now her baseline, instructed and agreeable to wear her BiPAP, patient is clinically stable will discharge the patient today back to halfway Time Spent with Patient Time attestation: Total time spent provid
== END 2022-05-15 14:53 | DRG 133 ==
LOC: ANHED 13:23 → ANHIMU 16:06
PROVIDERS: Physician Assistant; Admitting Provider Family Medicine; Emergency Provider Emergency Medicine; Visit Provider Family Medicine
DX: J96.21 Acute and chronic respiratory failure with hypoxia (principal); J96.22 Acute and chronic respiratory failure with hypercapnia; J44.9 Chronic obstructive pulmonary disease, unspecified; I11.0 Hypertensive heart disease with heart failure; I50.9 Heart failure, unspecified; Z99.81 Dependence on supplemental oxygen; E66.2 Morbid (severe) obesity with alveolar hypoventilation; Z20.822 Contact with and (suspected) exposure to COVID-19; I25.10 Atherosclerotic heart disease of native coronary artery without angina pectoris; F32.A Depression, unspecified; K21.9 Gastro-esophageal reflux disease without esophagitis; F20.9 Schizophrenia, unspecified; Z96.642 Presence of left artificial hip joint; Z86.718 Personal history of other venous thrombosis and embolism; Z86.73 Personal history of transient ischemic attack (TIA), and cerebral infarction without residual deficits; Z90.49 Acquired absence of other specified parts of digestive tract; Z87.891 Personal history of nicotine dependence; Z79.82 Long term (current) use of aspirin; Z68.36 Body mass index [BMI] 36.0-36.9, adult
CPT/HCPCS: 36415; 36600; 71045; 73130; 73562; 80048; 80053; 81001; 82805; 83735; 85025; 85027; 85055; 85610; 85730; 87426; 87636; 94002; 94003; 94640; 96374; 99285; A9270; C9803; J1650; J2405

== ENCOUNTER 2022-07-24 13:48 | Emergency (ER) | payer OTHER, SELFPAY ==
[2022-07-24] VITALS (7 sets, daily range): BP systolic 161–205; BP diastolic 70–107; PULSE 62–73; RESP 14–23; TEMP 36.6; O2SAT 94–100
--- NOTE | ~2022-07-24 | XR_ITS ---
XR chest 2V DATE: 07/24/2022 15:41 INDICATION: Chest pain TECHNIQUE: 2 views COMPARISON: 05/14/2022 portable AP chest at 1310 hours FINDINGS: There is mild infiltrate or atelectasis primarily involving the left lower lung, especially the left lung base. . No pleural effusion or pulmonary vascular congestion or pneumothorax is detected. Borderline heart size. Aortic arch calcification. IMPRESSION: Mild left lower lung infiltrate and/or atelectasis; pneumonia is not excluded Reviewed, dictated and finalized at location L. IMPRESSION: Mild left lower lung infiltrate and/or atelectasis; pneumonia is no t excluded
--- NOTE | 2022-07-24 13:52 | ECG_ITS ---
Measurements Intervals [place] Rate: 74 P: 47 AR: 187 QRS: 29 QRSD: 81 T: 167 QT: 385 QTc: 428 Interpretive Statements SINUS RHYTHM POSSIBLE LEFT ATRIAL ENLARGEMENT [-0.1mV P WAVE IN V1/V2] LOW QRS VOLTAGE IN PRECORDIAL LEADS [QRS DEFLECTION < 1.0 mV IN CHEST LEADS] POSSIBLE RIGHT VENTRICULAR CONDUCTION DELAY [RSR (QR) IN V1/V2] NONSPECIFIC T-WAVE ABNORMALITY COMPARED TO ECG 04/29/2022 09:30:26 SINUS RHYTHM NOW PRESENT Electronically Signed On 07-24-2022 14:12:22 CDT by Deborah Kumar M.D.
[2022-07-24] MEDS: ASPIRIN 81 MG CHEWABLE TABLET 324 MG PO (14:06)
[2022-07-24 14:18] LABS: INR 1.1; Prothrombin Time 14.5 Seconds (11.1-14.7)
[2022-07-24 14:19] LABS: Alanine Aminotransferase 13 U/L (6-35); Albumin Level 4.2 g/dL (3.5-5.1); Alkaline Phosphatase 64 U/L (38-126); Aspartate Amino Transferase 19 U/L (14-36); Basophils Percent Auto 0.5 % (0.2-1.2); Bilirubin,Total 0.5 mg/dL (0.2-1.3); Blood Urea Nitrogen 25 mg/dL (7-17); Calcium 8.5 mg/dL (8.4-10.2); Carbon Dioxide > 40 mmol/L (22-30); Chloride 94 mmol/L (98-107); Eosinophils Absolute Auto 0.1 K/mm3 (0-0.3); Eosinophils Percent Auto 2.2 % (0-4.4); Estimated CRCL calculation 57 ml/min; Estimated Glomerular Filt Rate > 60; Glucose 147 mg/dL (65-110); Hematocrit 37.4 % (37.0-47.0); Hemoglobin 11.8 g/dL (12.0-15.0); Immature Granulocyte Absolute 0.01 K/mm3 (0.00-0.031); Immature Granulocyte Percent A 0.2 % (0-0.5); Lipase 69 U/L (23-300); Lymphocytes Absolute Auto 1.45 K/mm3 (0.9-3.2); Lymphocytes Percent Auto 22.6 % (18.3-44.2); Mean Corpuscular HGB Conc 31.6 g/dl (32-36); Mean Corpuscular Hemoglobin 32.4 pg (26-34); Mean Corpuscular Volume 102.7 fl (80-100); Mean Platelet Volume 10.4 fl (7.4-10.4); Monocytes Absolute Auto 0.8 K/mm3 (0.1-0.6); Monocytes Percent Auto 12.6 % (2.6-8.5); Neutrophils Percent Auto 61.9 % (45.5-73.1); Partial Thromboplastin Time 28.1 SECONDS (22.3-36.8); Platelet Count Result 164 k/mm3 (150-375); Potassium 3.2 mmol/L (3.4-5.0); Red Blood Count 3.64 M/mm3 (4.2-5.4); Red Cell Distribution Width 13.9 % (11.5-14.5); Sodium 139 mmol/L (137-145); White Blood Count 6.4 K/mm3 (4.5-10.0)
[2022-07-24 14:30] LABS: Troponin I 0.013 ng/mL (0.000-0.034)
[2022-07-24] MEDS: BELLADONNA ALK/PHENOB ELIX 10 ML, MAG HYDROX/ALUMINUM HYD/SIMETH 30 ML, LIDOCAINE HCL 2... PO (16:23)
--- NOTE | 2022-07-24 16:25 | ED.CHESTPAIN ---
HPI - Chest Pain General Chief Complaint: Chest Pain Stated Complaint: chest pressure Time Seen by Provider: 07/24/22 15:30 History of Present Illness HPI narrative: This is a 71-year-old female, with past history of COPD and chronic CO2 retention, schizophrenia, brought in by EMS from her halfway complaining of chest pain beginning last night at approximately 10 PM. The patient describes the pain as sharp, substernal and in the right lower lung amaya. There are no obvious aggravating or alleviating factors and the pain is rated 5/10. EMS reports elevated blood pressure and improvement of symptoms with albuterol nebs. Related Data Home Medications Medication Instructions Recorded Confirmed aripiprazole 30 mg tablet 30 mg PO DAILY 01/24/20 06/25/22 benztropine 0.5 mg tablet 0.5 mg PO BID 01/24/20 06/25/22 carbamazepine 200 mg tablet 200 mg PO BID 01/24/20 06/25/22 docusate sodium 100 mg capsule 100 mg PO DAILY 01/24/20 06/25/22 ergocalciferol (vitamin D2) 1,250 1,250 mcg PO MONTHLY 01/24/20 06/25/22 mcg (50,000 unit) capsule hydralazine 100 mg tablet 100 mg PO TID 01/24/20 06/25/22 aspirin 81 mg tablet,delayed 81 mg PO DAILY 01/25/20 06/25/22 release haloperidol 5 mg tablet 5 mg PO BID 01/25/20 06/25/22 polyethylene glycol See Rx Instructions .Route .COMPLEX 01/25/20 06/25/22 sertraline 25 mg tablet 25 mg PO DAILY 01/25/20 06/25/22 sertraline 50 mg tablet 50 mg PO DAILY 01/25/20 06/25/22 trazodone 50 mg tablet 50 mg PO HS 01/25/20 06/25/22 carvedilol 3.125 mg tablet 3.125 mg PO BID 05/22/21 06/25/22 nifedipine 60 mg tablet,extended 60 mg PO DAILY 05/22/21 06/25/22 release Artificial Tears 1 drp EACH EYE Q6H PRN Dry Eye(S) 09/10/21 06/25/22 acetaminophen 500 mg tablet 1,000 mg PO BID 09/10/21 06/25/22 atorvastatin 20 mg tablet 20 mg PO HS 09/10/21 06/25/22 clonidine HCl 0.3 mg tablet 0.3 mg PO Q12H 09/10/21 06/25/22 olanzapine 10 mg tablet 10 mg PO DAILY 09/10/21 06/25/22 divalproex 500 mg tablet,delayed 500 mg PO BID 09/11/21 06/25/22 release ferrous sulfate 325 mg (65 mg 325 mg PO DAILY 02/02/22 06/25/22 iron) tablet gabapentin 400 mg capsule 400 mg PO TID 04/29/22 06/25/22 omeprazole 20 mg capsule,delayed 20 mg PO DAILY 04/29/22 06/25/22 release polyvinyl alcohol 1.4 % eye drops 1 drp EACH EYE Q6H PRN Dry Eye(S) 04/29/22 06/25/22 Allergies Allergy/AdvReac Type Severity Reaction Status Date / Time Penicillins Allergy Unknown Hives / Verified 07/24/22 13:56 Red Face Review of Systems Review of Systems: CONSTITUTIONAL: Denies fever, chills, or sweats. CARDIOVASCULAR: Chest pain denies palpitations, or edema. RESPIRATORY: Denies cough or dyspnea. GASTROINTESTINAL: Denies abdominal pain, nausea, vomiting, or diarrhea. GENITOURINARY: Denies dysuria or hematuria. SKIN: Denies rash or itching. MUSCULOSKELETAL: Denies back pain, joint pain, or myalgia. NEUROLOGIC: Denies headache, numbness, dizziness, or weakness. PSYCHIATRIC: Denies anxiety or depression. [facility] Past Medical History Medical History Asthma-COPD overlap syndrome Cerebrovascular accident Chronic respiratory failure with hypoxia and hypercapnia Deep venous thrombosis Gastroesophageal reflux disease Hypertension Migraine headache Obesity hypoventilation syndrome Schizophrenia Type 2 diabetes mellitus Diet-controlled. Surgical History Surgical History History of arthroscopy of right knee History of section, classical History of cholecystectomy History of left hip replacement History of sinus surgery Family History Family History Mother Heart disease Cancer Cerebrovascular accident Sibling Pacemaker Social History Social History Social History: Lives at: [facility].
[2022-07-24] MEDS: hydrALAZINE HCL 50 MG TABLET 100 MG PO (17:35)
== END 2022-07-24 17:55 ==
PROVIDERS: Emergency Medicine; Emergency Provider Preventive Medicine Aerospace Medicine
DX: J18.9 Pneumonia, unspecified organism (principal); R09.1 Pleurisy; J44.9 Chronic obstructive pulmonary disease, unspecified; I10 Essential (primary) hypertension; E11.9 Type 2 diabetes mellitus without complications; K21.9 Gastro-esophageal reflux disease without esophagitis; E66.2 Morbid (severe) obesity with alveolar hypoventilation; Z68.39 Body mass index [BMI] 39.0-39.9, adult; F20.9 Schizophrenia, unspecified; Z99.81 Dependence on supplemental oxygen; Z96.642 Presence of left artificial hip joint; Z86.718 Personal history of other venous thrombosis and embolism; Z86.73 Personal history of transient ischemic attack (TIA), and cerebral infarction without residual deficits; Z87.891 Personal history of nicotine dependence; Z90.49 Acquired absence of other specified parts of digestive tract; Z79.82 Long term (current) use of aspirin; R94.31 Abnormal electrocardiogram [ECG] [EKG]
CPT/HCPCS: 36415; 71046; 80053; 83690; 84484; 85025; 85610; 85730; 93005; 96365; 99284; A9270; J0131

== ENCOUNTER 2022-08-09 09:59 | Inpatient (IN) | payer OTHER, SELFPAY ==
[2022-08-09] VITALS (20 sets, daily range): BP systolic 127–182; BP diastolic 76–101; PULSE 71–91; RESP 17–22; TEMP 36.2–37.1; O2SAT 93–100; BMI 38.8
--- NOTE | ~2022-08-09 | XR_ITS ---
XR chest 1V portable DATE: 08/09/2022 11:33 INDICATION: Hypoxia TECHNIQUE: Portable upright AP chest on 08/05/2022 at 1132 hours COMPARISON: 07/24/2022 AP and lateral chest FINDINGS: Mild atelectasis or infiltrate is suggested in the lower lung zones, left greater than righ t. No pulmonary vascular congestion or pleural effusion or pneumothorax is evident. Heart size is not optimally evaluated on AP projection because of magnification. Osteopenia. IMPRESSION: Mild infiltrate or atelectasis in the left lower lobe and to a lesser extent right lung b ase Reviewed, dictated and finalized at location A. IMPRESSION: Mild infiltrate or atelectasis in the left lower lobe and to a less er extent right lung base
--- NOTE | ~2022-08-09 | CT_ITS ---
EXAMINATION: CT brain wo con DATE: 08/09/2022 12:00 INDICATION: Altered mental status. Transient alteration of awareness. TECHNIQUE: Computed tomography (CT) of the head was performed without intravenous contrast. The mA wa s adjusted according to patient size. Iterative reconstruction technique was employed. Exam dose: 83 2.33 mGy-cm total exam DLP. COMPARISON: 04/29/2022 CT brain FINDINGS: The examination is limited by motion artifact despite 2 sets of images being obtained. Intracranial calcified atherosclerosis is again noted. No intracranial mass lesion or hemorrhage or cerebrovascular accident, midline shift or mass effect i s evident. No subdural or epidural hematoma is detected. No fracture or bone destruction of the cranial vault is detected. There is patchy soft tissue thickening of the ethmoid air cells bilaterally and minimal mucoperiostea l thickening of the maxillary and sphenoid sinuses. The mastoid air cells are unremarkable. No fracture or bone destruction of the cranial vault. IMPRESSION: No acute intracranial finding Reviewed, dictated and finalized at Location A. Reviewed, dictated and finalized at location A.
--- NOTE | ~2022-08-09 | XR_ITS ---
XR chest 1V portable DATE: 08/10/2022 05:24 INDICATION: Shallow breathing, lethargy. Hypoxia. TECHNIQUE: Portable AP chest on 08/10/2022 at 0522 hours 07/24/2022 2 view chest COMPARISON: 08/05/2022 portable AP chest on 1132 hours FINDINGS: This is a limited rotated single portable AP view. R size appears borderline. There is pulmonary vascular redistribution which may indicate pulmonary ve nous hypertension. Suggestion of mild bilateral perihilar and basilar infiltrate and/atelectasis. No pleural effusion or pneumothorax. IMPRESSION: Limited rotated AP chest suggesting congestive changes, mild bilateral perihilar and basi lar infiltrate and/atelectasis Reviewed, dictated and finalized at location A. IMPRESSION: Limited rotated AP chest suggesting congestive changes, mild bilate ral perihilar and basilar infiltrate and/atelectasis
--- NOTE | ~2022-08-09 | XR_ITS ---
MODIFIED ESOPHAGRAM HISTORY: Aspiration pneumonia TECHNIQUE: Modified barium esophagram was performed on 08/12/2022. I administered fluoroscopy and perf ormed the exam with speech pathologist. Patient was seated for lateral fluoroscopic imaging for delia stion of thin liquids, pudding, solids and quantified amounts, followed by thin liquids in uncontroll ed amounts. This was recorded on tape. A single fluoroscopic spot image was also recorded. The DAP fo r this procedure was 1.943 Gycm2. The amount of fluoroscopy time used during this procedure was 1.8 m inutes. FINDINGS: Oral stage: Reduced lingual movement. Pharyngeal stage: Reduced laryngeal elevation and tongue base retraction resulting in vallecular resi due. Small amount of laryngeal penetration without aspiration.. Cervical/esophageal stage: Adequate function. IMPRESSION: Mild oropharyngeal dysphagia with small amount of laryngeal penetration without aspiratio n. Please correlate with speech pathologist findings and specific feeding recommendations. Reviewed, dictated and finalized at location A. IMPRESSION: Mild oropharyngeal dysphagia with small amount of laryngeal penetra tion without aspiration. Please correlate with speech pathologist findings and specific feeding recommendations.
--- NOTE | ~2022-08-09 | XR_ITS ---
EXAMINATION: XR chest 1V portable Exam Date/Time: 08/11/2022 14:06 CDT HISTORY: shortness of breath Comparison: 08/10/2022. RESULT: Lines, tubes, and devices: None. Lungs and pleura: Ill-defined patchy groundglass opacities and diffuse reticular opacities, with ind istinct vessels, improving since the prior study. Cardiomediastinal silhouette: Stable. Other: No acute osseous or upper abdominal finding. IMPRESSION: Improving atelectasis/edema. Reviewed, dictated and finalized at location K.
--- NOTE | 2022-08-09 10:12 | ECG_ITS ---
Measurements Intervals [place] Rate: 72 P: 20 RI: 187 QRS: 41 QRSD: 82 T: -77 QT: 410 QTc: 449 Interpretive Statements SINUS RHYTHM NONSPECIFIC T-WAVE ABNORMALITY ABNORMAL ECG COMPARED TO ECG 07/24/2022 13:55:32 NO SIGNIFICANT CHANGES Electronically Signed On 08-10-2022 8:19:20 CDT by Elvis Serna M.D.
--- NOTE | 2022-08-09 10:15 | ED.AMS ---
HPI - Altered Mental Status General Chief Complaint: Altered Mental Status Stated Complaint: UNRESPONSIVE PAINFUL STIMULI History of Present Illness HPI narrative: HPI limited by patient's altered mental status This is a 71-year-old female, with past history of COPD and schizophrenia, brought from her fdc by EMS for altered mental status. EMS reports the patient was found minimally responsive to painful stimuli. On arrival she was on her home O2 (4L) satting 88%. Blood sugar noted at 70, for which she was given a bolus of dextrose. Patient was placed on nonrebreather at 15 L with improvement of O2 to 100% and transported. Related Data Home Medications Medication Instructions Recorded Confirmed benztropine 0.5 mg tablet 0.5 mg PO BID 01/24/20 08/09/22 carbamazepine 200 mg tablet 200 mg PO BID 01/24/20 08/09/22 hydralazine 100 mg tablet 100 mg PO TID 01/24/20 08/09/22 haloperidol 5 mg tablet 5 mg PO BID 01/25/20 08/09/22 sertraline 25 mg tablet 25 mg PO DAILY 01/25/20 08/09/22 sertraline 50 mg tablet 50 mg PO DAILY 01/25/20 08/09/22 trazodone 50 mg tablet 50 mg PO HS 01/25/20 08/09/22 carvedilol 3.125 mg tablet 3.125 mg PO BID 05/22/21 08/09/22 nifedipine 60 mg tablet,extended 60 mg PO DAILY 05/22/21 06/25/22 release Artificial Tears 1 drp EACH EYE Q6H PRN Dry Eye(S) 09/10/21 08/09/22 acetaminophen 500 mg tablet 1,000 mg PO BID 09/10/21 08/09/22 atorvastatin 20 mg tablet 20 mg PO HS 09/10/21 08/09/22 clonidine HCl 0.3 mg tablet 0.3 mg PO Q12H 09/10/21 08/09/22 olanzapine 10 mg tablet 10 mg PO Q12H 09/10/21 08/09/22 divalproex 500 mg tablet,delayed 500 mg PO DAILY 09/11/21 08/09/22 release gabapentin 400 mg capsule 400 mg PO TID 04/29/22 08/09/22 polyvinyl alcohol 1.4 % eye drops 1 drp EACH EYE Q6H PRN Dry Eye(S) 04/29/22 08/09/22 divalproex 250 mg tablet,extended 750 mg PO HS 08/09/22 08/09/22 release 24 hr fluticasone propionate 110 1 puff inhalation BID 08/09/22 08/09/22 mcg/actuation HFA aerosol inhaler (Flovent HFA) nystatin-triamcinolone topical 1 applic topical BID 08/09/22 08/09/22 cream polyethylene glycol 3350 17 gram 17 g PO DAILY 08/09/22 08/09/22 oral powder packet Allergies Allergy/AdvReac Type Severity Reaction Status Date / Time Penicillins Allergy Unknown Hives / Verified 07/24/22 13:56 Red Face Review of Systems Review of Systems: Unable to obtain review of systems due to patient's altered mental status PMFSH Past Medical History Medical History Asthma-COPD overlap syndrome Cerebrovascular accident Chronic respiratory failure with hypoxia and hypercapnia Deep venous thrombosis Gastroesophageal reflux disease Hypertension Migraine headache Obesity hypoventilation syndrome Schizophrenia Type 2 diabetes mellitus Diet-controlled. Surgical History Surgical History History of arthroscopy of right knee History of section, classical History of cholecystectomy History of left hip replacement History of sinus surgery Family History Family History Mother Heart disease Cancer Cerebrovascular accident Sibling Pacemaker Social History Social History Social History: Lives at: [facility]. Likes to color and do crafts. Her surrogate is Carri Rangel her pillowcase folder. She does have 4 children which she stated are all over the area. She also stated that her son Jorge is here however he does not know much about her. Code status: Full code Smoking packs per day: 1 Smoking cigarettes per day: 20.0 Years smoked: 21 Smoking pack-years: 21.00 Smoking status: Never smoker Tobacco type: cigarettes Second hand tobacco smoke exposure: Yes Additional smoking assessment comments: Patient was around a lot
[2022-08-09] MEDS: ALBUTEROL SULFATE NEB 2.5 MG/3 ML INH 5 MG INHALATION (10:35)
[2022-08-09] MEDS: IPRATROPIUM BR 0.02% INH SOLN 0.5 MG/2.5 ML VIAL INHALATION ×2 (10:35→21:15)
[2022-08-09] MEDS: SODIUM CHLORIDE 0.9% IV 1,000 ML 999 ML IV CONT (10:45)
[2022-08-09] MEDS: CEFEPIME 2 GM/NS 50 ML 2 GM/50 ML BAG IVPB (10:46)
[2022-08-09 10:48] LABS: Base Excess ABG 9.5 mEq/l (+/-2.0); Fractional Inspired Oxygen 60 %; HCO3 ABG 38.1 mEq/l (22.0-26.0); Oxygen Content ABG 17.2 %vol (16.0-22.0); Oxygen Saturation ABG 99.6 % (95.0-100.0); Oxyhemoglobin 98.1 % THb (90.0-100.0); PO2 FiO2 Ratio Arterial Blood 4.63 %; pH ABG 7.327 (7.350-7.450)
[2022-08-09 10:49] LABS: PCO2 ABG 74.4 mmHg (35.0-45.0); Site Drawn LEFT RADIAL
[2022-08-09 10:50] LABS: Device OTHER DEVICE; Modified Allen's Test Pass
[2022-08-09 10:54] LABS: Basophils Percent Auto 0.6 % (0.2-1.2); Eosinophils Percent Auto 0.3 % (0-4.4); Hematocrit 34.1 % (37.0-47.0); Hemoglobin 10.6 g/dL (12.0-15.0); Immature Granulocyte Absolute 0.05 K/mm3 (0.00-0.031); Immature Granulocyte Percent A 0.7 % (0-0.5); Lymphocytes Absolute Auto 0.76 K/mm3 (0.9-3.2); Lymphocytes Percent Auto 10.7 % (18.3-44.2); Mean Corpuscular HGB Conc 31.1 g/dl (32-36); Mean Platelet Volume 10.8 fl (7.4-10.4); Monocytes Absolute Auto 1.2 K/mm3 (0.1-0.6); Monocytes Percent Auto 16.8 % (2.6-8.5); Neutrophils Absolute Auto 5.1 K/mm3 (1.3-6.7); Neutrophils Percent Auto 70.9 % (45.5-73.1); Platelet Count Result 151 k/mm3 (150-375); Red Blood Count 3.31 M/mm3 (4.2-5.4); Red Cell Distribution Width 13.1 % (11.5-14.5); White Blood Count 7.1 K/mm3 (4.5-10.0)
[2022-08-09 11:06] LABS: INR 1.1; Prothrombin Time 14.8 Seconds (11.1-14.7)
[2022-08-09 11:07] LABS: Partial Thromboplastin Time 30.5 SECONDS (22.3-36.8)
[2022-08-09 11:09] LABS: Alanine Aminotransferase 11 U/L (6-35); Albumin Level 3.5 g/dL (3.5-5.1); Alkaline Phosphatase 57 U/L (38-126); Aspartate Amino Transferase 19 U/L (14-36); Bilirubin,Total 0.3 mg/dL (0.2-1.3); Blood Urea Nitrogen 21 mg/dL (7-17); CRP 5.7 mg/dL (<1.0); Calcium 7.8 mg/dL (8.4-10.2); Carbon Dioxide > 40 mmol/L (22-30); Chloride 98 mmol/L (98-107); Estimated CRCL calculation 62 ml/min; Estimated Glomerular Filt Rate > 60; Glucose 184 mg/dL (65-110); Potassium 3.6 mmol/L (3.4-5.0); Sodium 137 mmol/L (137-145)
[2022-08-09 11:11] LABS: Appearance Urine Clear (Clear); Bacteria Urine None Seen /hpf; Bilirubin Urine 1+ (Negative); Blood Urine Negative (Negative); Color Urine Dark Yellow (Yellow); Glucose Urine UA Negative (Negative); Ketones Urine Trace mg/dL (Negative); Leukocyte Esterase Ur Trace LEU/UL (Negative); Need Manual Microscopic Reviewed; Nitrate Urine Negative (Negative); Protein Urine 1+ mg/dL (Negative); Specific Grav Ur 1.034 (1.001-1.035); Squamous Epithelial Cell Urine Occasional /hpf (Few); WBC Urine 0-5 /hpf; pH Urine 5.5 (5.0-9.0)
[2022-08-09 11:12] LABS: Add Urine Microscopic? YES
[2022-08-09] MEDS: AZITHROMYCIN 500 MG/NS 250 ML 500 MG/250 ML BAG 250 MG IVPB (11:17)
[2022-08-09 11:24] LABS: Ethanol < 10 mg/dL (<10)
[2022-08-09 11:36] LABS: Amphetamine Screen Urine Negative (Negative); Barbiturate Screen Urine Positive (Negative); Benzodiazepines Screen Urine Negative (Negative); Cannabinoid Screen Urine Negative (Negative); Cocaine Screen Urine Negative (Negative); Methadone Screen Urine Negative (Negative); Opiate Screen Urine Negative (Negative); Phencyclidine Screen Urine Negative (Negative)
[2022-08-09 13:19] LABS: Influenza A QL RT-PCR Negative (Negative); Influenza B QL RT-PCR Negative (Negative); SARS-CoV-2 RNA PCR Negative (Negative)
--- NOTE | 2022-08-09 14:41 | PM.IMHP ---
H&P: HPI History of Present Illness Date/Time: 08/09/22 14:41 Chief Complaint: Altered mental status Narrative: This is a 71-year-old female patient who has a history of COPD and schizophrenia. The patient was brought here from the emergency room due to altered mental status. The patient was minimally responsive when she was brought to the emergency room. The patient is typically on oxygen at 4 L per nasal cannula and she is only setting any% on that. Her blood sugar was noted to be 70. The patient was given a bolus of dextrose. Patient was placed on Airvo. The patient was answering questions yes and but would not open her eyes. The patient was satting 100% on the Airvo. H&H is 10.6 and 34.1. ABGs pH 7.327. CO2 was 74.4 PO2 was 278. Bicarb 38.1. Glucose 184. Calcium 7.8. Patient was positive for barbiturates. She was negative for influenza A/B and COVID. Head CT shows no acute intracranial finding. Chest x-ray was read asMild infiltrate or atelectasis in the left lower lobe and to a lesser extent right lung base. The patient was given nebulizer treatments azithromycin and cefepime. The patient is being admitted to observation on 08/09/2022 Review of Systems Review of Systems: All systems reviewed & are unremarkable except as noted in HPI and below Constitutional: Constitutional: Reports as per HPI and Reports no additional constitutional complaints Eyes: Eyes: Reports as per HPI and Reports no additional eye complaints ENT: Reports system reviewed and no additional complaints, except as documented and Reports Normal hearing present Cardiovascular: Cardiovascular: Reports no additional cardiovascular complaints Respiratory: Respiratory: Reports no additional respiratory complaints and Reports no additional respiratory complaints Gastrointestinal: Gastrointestinal: Reports as per HPI and Reports no additional gastrointestinal complaints Musculoskeletal: Musculoskeletal: Reports no additional musculoskeletal complaints Integumentary/Breasts: Skin/Breast: Reports system reviewed and no additional complaints, except as docu and Reports as per HPI Neurologic: Reports system reviewed and no additional complaints, except as documented, Reports as per HPI and Reports Normal hearing present Psychiatric: Psychiatric: Reports no additional psychiatric complaints and Reports as per HPI Endocrine: Endocrine: Reports no additional endocrine complaints Hematologic/Lymphatic: Hematologic/Lymphatic: Reports no additional hematologic/lymphatic complaints Allergic/Immunologic: Allergic/Immunologic: Reports no additional allergic/immunologic complaints [facility] Past Medical History Medical History (Updated 08/09/22 @ 19:30 by Megan Harkins NP) Asthma-COPD overlap syndrome Cerebrovascular accident CHF (congestive heart failure), NYHA class I Chronic respiratory failure with hypoxia and hypercapnia Deep venous thrombosis Depression Gastroesophageal reflux disease Hypertension Joint effusion of knee Migraine headache Obesity hypoventilation syndrome Obesity hypoventilation syndrome NIGEL (obstructive sleep apnea) Pneumonia Pneumonia Right knee buckling Right knee pain Schizophrenia Seizures Type 2 diabetes mellitus Diet-controlled. Surgical History Surgical History History of arthroscopy of right knee History of section, classical History of cholecystectomy History of left hip replacement History of sinus surgery Family History Family History Mother Heart disease Cancer Cerebrovascular accident Sibling Pacemaker Social History Social History Social History: [facility] Likes to color and do crafts. Her surrogate is Carri Rangel her sample case porter. She does have 4 children which she stated are all over the
--- NOTE | 2022-08-09 17:35 | ADMGEN ---
This patient, Yenny Hernandez, was admitted to IMU Room 204-01 at 1728. Patient/family oriented to hospital policies and general routines including ID bracelet, bed and alarms, visiting hours, pain management, procedures, bathroom and other care routines, personal items, smoking policy, room service/diet, and visiting hours. Information on how to activate the Rapid Response Team has been discussed. Patient/Family are encouraged to report perceived risks to care and to ask questions if they do not understand what they are told or what they should do.
--- NOTE | 2022-08-09 17:35 | PCRCNOTE ---
Window of time for administration has passed. See next scheduled administration.
[2022-08-09] MEDS: carBAMazepine 200 MG TABLET PO (20:55)
[2022-08-09] MEDS: ATORVASTATIN 20 MG TABLET PO (20:56)
[2022-08-09] MEDS: GABAPENTIN 400 MG CAPSULE PO (20:56)
[2022-08-09] MEDS: BETAMETHASONE/CLOTRIMAZOLE CR 45 GM TUBE 1 APPLIC TOPICAL (20:57)
[2022-08-09] MEDS: cloNIDine HCL 0.1 MG TABLET 0.3 MG PO (20:58)
[2022-08-09] MEDS: DIVALPROEX SODIUM ER 250 MG TAB.24H 750 MG PO (21:00)
[2022-08-09] MEDS: OLANZapine 5 MG TABLET 10 MG PO (21:00)
[2022-08-09] MEDS: traZODone HCL 50 MG TABLET PO (21:01)
[2022-08-09] MEDS: methylPREDNISolone SOD SUCC 40 MG VIAL IV PUSH (21:08)
[2022-08-09] MEDS: ALBUTEROL SULFATE NEB 2.5 MG/3 ML INH INHALATION (21:14)
[2022-08-10] VITALS (25 sets, daily range): BP systolic 132–165; BP diastolic 78–108; PULSE 61–90; RESP 16–26; TEMP 36.6–37.1; O2SAT 98–100
[2022-08-10] MEDS: IPRATROPIUM BR 0.02% INH SOLN 0.5 MG/2.5 ML VIAL INHALATION ×4 (02:48→20:20)
[2022-08-10] MEDS: ALBUTEROL SULFATE NEB 2.5 MG/3 ML INH INHALATION ×4 (02:49→20:20)
[2022-08-10 05:24] LABS: Alveolar/Arterial O2 Gradient 117.6 mmHg; Base Excess ABG 7.5 mEq/l (+/-2.0); Carboxyhemoglobin 0.3 % THb (0-2.0); Fractional Inspired Oxygen 40 %; HCO3 ABG 35.9 mEq/l (22.0-26.0); Methemoglobin ABG 0.5 %THb (0-1.5); Oxygen Content ABG 16.7 %vol (16.0-22.0); Oxygen Saturation ABG 95.3 % (95.0-100.0); Oxyhemoglobin 94.7 % THb (90.0-100.0); PO2 ABG 85.6 mmHg (80.0-100.0); PO2 FiO2 Ratio Arterial Blood 2.14 %; Reduced Hemoglobin 4.5 %THb (0-5.0); Total Hemoglobin 12.5 g/dL (12.0-18.0)
[2022-08-10 05:25] LABS: PCO2 ABG 71.3 mmHg (35.0-45.0)
[2022-08-10 05:26] LABS: Device HIGH FLOW THERAPY; Modified Allen's Test Pass; Site Drawn LEFT RADIAL
[2022-08-10] MEDS: hydrALAZINE HCL 50 MG TABLET 100 MG PO ×3 (05:57→21:10)
[2022-08-10] MEDS: methylPREDNISolone SOD SUCC 40 MG VIAL IV PUSH (05:57)
[2022-08-10 07:52] LABS: Glucose Point of Care 141 mg/dl (65-105)
[2022-08-10] MEDS: FLUTICASONE PROP 110 MCG INHALER 12 GM (*SP) 1 PUFF INHALATION ×2 (08:29→20:20)
[2022-08-10] MEDS: polyethylene glycoL 3350 17 GM POWD.PACK PO (10:29)
[2022-08-10] MEDS: BETAMETHASONE/CLOTRIMAZOLE CR 45 GM TUBE 1 APPLIC TOPICAL ×2 (10:29→20:32)
[2022-08-10] MEDS: OLANZapine 5 MG TABLET 10 MG PO ×2 (10:29→20:34)
[2022-08-10] MEDS: HALOPERIDOL 5 MG TABLET PO ×2 (10:30→17:58)
[2022-08-10] MEDS: cloNIDine HCL 0.1 MG TABLET 0.3 MG PO ×2 (10:30→20:32)
[2022-08-10] MEDS: GABAPENTIN 400 MG CAPSULE PO ×2 (10:30→17:58)
[2022-08-10] MEDS: SERTRALINE HCL 50 MG TABLET PO (10:31)
[2022-08-10] MEDS: carvediloL 3.125 MG TABLET PO ×2 (10:31→20:31)
[2022-08-10] MEDS: carBAMazepine 200 MG TABLET PO ×2 (10:31→17:58)
[2022-08-10] MEDS: SERTRALINE HCL 25 MG TABLET PO (10:31)
[2022-08-10] MEDS: AZITHROMYCIN 500 MG/NS 250 ML 500 MG/250 ML BAG 250 MG IVPB (10:32)
--- NOTE | 2022-08-10 10:49 | PM.IMPN ---
Progress Note: A&P Assessment and Plan (1) Acute on chronic respiratory failure with hypoxia and hypercapnia: Code(s): J96.21 - Acute and chronic respiratory failure with hypoxia; J96.22 - Acute and chronic respiratory failure with hypercapnia Status: Acute Assessment and Plan: Patient normally on 4 L O2 nasal cannula chronically. She also wears BiPAP obesity hypoventilation syndrome but is only compliant 4 nights per week. Patient was found unresponsive. Urine drug screen is positive for barbiturates (does not appear to be on phenobarb). ABG noted but the hypecarbia could be related to being unresponsive and/or from her minimal compliance with BiPAP. She tolerated BiPAP last night. Wean to her baseline 4L. Repeat ABG in the morning (2) Altered mental status: Qualifiers: Altered mental status type: unspecified Qualified Code(s): R41.82 - Altered mental status, unspecified Code(s): R41.82 - Altered mental status, unspecified Status: Acute Assessment and Plan: Patient was found unresponsive at the assisted. She was minimal responsive to painful stimuli. CT of the brain showed no acute intracranial findings. She states that she felt the nursing was 'giving me too many pills' and 'they looked different'. Urine drug screen is positive for barbiturates (she is not on phenobarb). She was seen here in April with altered mental status and similar presentation. Related to seizures? Related to noncompliance with BiPAP? AMS related to inadvertent medication mix up? Will notify the assisted of this possibility. If seizure, would expect worsening acidosis possibly. Neuro checks. Compliance with BiPAP discussed. (3) Community acquired pneumonia: Qualifiers: Laterality: unspecified laterality Qualified Code(s): J18.9 - Pneumonia, unspecified organism Code(s): J18.9 - Pneumonia, unspecified organism Status: Acute Assessment and Plan: Patient found unresponsive at the assisted. Chest x-ray on admission showed mild airspace disease in left lower lobe. Consider atelectasis. Repeat chest x-ray shows congestive changes and mild bilateral perihilar and basilar infiltrates. She does have a productive cough. No fever. White count normal. Blood cultures and sputum culture ordered. She has been started on azithromycin and Rocephin. Continue nebulizer treatments. (4) CHF (congestive heart failure), NYHA class I: Code(s): I50.9 - Heart failure, unspecified Status: Acute Assessment and Plan: Patient has a history chronic diastolic CHF. Echocardiogram in August 2021 showing EF of 60-65% with grade 1 diastolic dysfunction, mild valvular disease and severe pulmonary hypertension. Continue Coreg. (5) Seizures: Code(s): R56.9 - Unspecified convulsions Status: Acute Assessment and Plan: As above. AMS related to unrecognized seizures. Continue divalproex and Tegretol. Check level. Seizure precautions. Neuro checks (6) Obesity hypoventilation syndrome: Code(s): E66.2 - Morbid (severe) obesity with alveolar hypoventilation Status: Acute Assessment and Plan: As above. Continue with BiPAP (7) Hypertension: Code(s): I10 - Essential (primary) hypertension Status: Acute Assessment and Plan: Patient's blood pressure was reviewed on 08/10 Blood pressure remains mildly elevated at times. On Coreg, Clonidine and hydralazine. Will continue current medications and monitor for now. (8) Type 2 diabetes mellitus: Code(s): E11.9 - Type 2 diabetes mellitus without complications Status: Acute Assessment and Plan: The patient's blood glucose was reviewed on 08/10 Glucose remains well controlled. Start AccuCheks covering with sliding scale. Hypoglycemia protocol will be available as needed. Check A1c (9) Chronic obstructive pulmonary disease: Code(s): J
[2022-08-10 11:46] LABS: Glucose Point of Care 140 mg/dl (65-105)
[2022-08-10 14:16] LABS: Basophils Percent Auto 0.4 % (0.2-1.2); Hematocrit 34.3 % (37.0-47.0); Hemoglobin 10.6 g/dL (12.0-15.0); Immature Granulocyte Absolute 0.04 K/mm3 (0.00-0.031); Immature Granulocyte Percent A 0.4 % (0-0.5); Lymphocytes Absolute Auto 0.88 K/mm3 (0.9-3.2); Mean Corpuscular HGB Conc 30.9 g/dl (32-36); Mean Corpuscular Hemoglobin 32.5 pg (26-34); Mean Corpuscular Volume 105.2 fl (80-100); Monocytes Absolute Auto 0.8 K/mm3 (0.1-0.6); Monocytes Percent Auto 8.4 % (2.6-8.5); Neutrophils Percent Auto 81.8 % (45.5-73.1); Platelet Count Result 148 k/mm3 (150-375); Red Blood Count 3.26 M/mm3 (4.2-5.4); Red Cell Distribution Width 13.1 % (11.5-14.5); White Blood Count 9.8 K/mm3 (4.5-10.0)
[2022-08-10 14:22] LABS: Anion Gap 0 mmol/L (8-16); Blood Urea Nitrogen 21 mg/dL (7-17); Carbon Dioxide 38 mmol/L (22-30); Chloride 99 mmol/L (98-107); Estimated CRCL calculation 57 ml/min; Estimated Glomerular Filt Rate > 60; Glucose 170 mg/dL (65-110); Lactic Acid Reflex 1.3 mmol/L (0.7-2.0); Potassium 3.8 mmol/L (3.4-5.0); Sodium 137 mmol/L (137-145)
[2022-08-10 14:31] LABS: Hemoglobin A1C 5.2 % (<5.7)
[2022-08-10 14:45] LABS: Iron 39 ug/dL (37-170)
[2022-08-10 14:54] LABS: Percent Iron Saturation 16 % (20-50)
[2022-08-10 15:17] LABS: Thyroid Stimulating Hormone Reflex 0.107 uIU/mL (0.465-4.68)
[2022-08-10 15:33] LABS: Folic Acid > 20.0 ng/mL (2.76->20)
[2022-08-10] MEDS: DIVALPROEX SODIUM ER 500 MG TAB.24H PO (15:41)
[2022-08-10 15:59] LABS: Free T4 Free Thyroxine Reflex 1.02 ng/dL (0.78-2.19)
[2022-08-10 16:09] LABS: Glucose Point of Care 125 mg/dl (65-105)
[2022-08-10 16:41] LABS: Total Triiodothyronine (T3) 0.57 NG/ML (0.97-1.69)
[2022-08-10] MEDS: ACETAMINOPHEN 325 MG TABLET 650 MG PO ×2 (18:07→21:09)
[2022-08-10 20:12] LABS: Glucose Point of Care 118 mg/dl (65-105)
[2022-08-10] MEDS: DIVALPROEX SODIUM ER 250 MG TAB.24H 750 MG PO (20:31)
[2022-08-10] MEDS: ATORVASTATIN 20 MG TABLET PO (20:31)
[2022-08-10] MEDS: traZODone HCL 50 MG TABLET PO (20:32)
[2022-08-10] MEDS: guaiFENesin/DEXTROMETHORPHAN 10 ML UDC PO (21:09)
[2022-08-11] VITALS (33 sets, daily range): BP systolic 115–146; BP diastolic 59–79; PULSE 54–76; RESP 11–22; TEMP 35.8–37.2; O2SAT 92–100
[2022-08-11] MEDS: ALBUTEROL SULFATE NEB 2.5 MG/3 ML INH INHALATION ×4 (02:15→21:43)
[2022-08-11] MEDS: IPRATROPIUM BR 0.02% INH SOLN 0.5 MG/2.5 ML VIAL INHALATION ×4 (02:15→21:43)
[2022-08-11 04:48] LABS: Anion Gap 1 mmol/L (8-16); Blood Urea Nitrogen 27 mg/dL (7-17); Calcium 7.9 mg/dL (8.4-10.2); Carbon Dioxide 38 mmol/L (22-30); Chloride 98 mmol/L (98-107); Estimated CRCL calculation 57 ml/min; Estimated Glomerular Filt Rate > 60; Glucose 84 mg/dL (65-110); Potassium 3.8 mmol/L (3.4-5.0); Sodium 137 mmol/L (137-145)
[2022-08-11 05:47] LABS: Alveolar/Arterial O2 Gradient 52.3 mmHg; Base Excess ABG 6.4 mEq/l (+/-2.0); Fractional Inspired Oxygen 30 %; HCO3 ABG 34.8 mEq/l (22.0-26.0); Oxygen Content ABG 14.7 %vol (16.0-22.0); Oxygen Saturation ABG 93.2 % (95.0-100.0); Oxyhemoglobin 93.6 % THb (90.0-100.0); PO2 ABG 75.9 mmHg (80.0-100.0); PO2 FiO2 Ratio Arterial Blood 2.53 %; Total Hemoglobin 11.1 g/dL (12.0-18.0)
[2022-08-11 05:54] LABS: pH ABG 7.297 (7.350-7.450)
[2022-08-11 05:55] LABS: Device NON-INVASIVE VENT; Modified Allen's Test Pass; Non-Invasive Expiratory Pressure 6 CMH2O; Non-Invasive Inspiratory Pressure 12 CMH2O; Non-Invasive Vent Rate 12 /MIN; PCO2 ABG 72.9 mmHg (35.0-45.0); Site Drawn RIGHT RADIAL
[2022-08-11] MEDS: hydrALAZINE HCL 50 MG TABLET 100 MG PO ×2 (06:09→21:26)
[2022-08-11 08:02] LABS: Glucose Point of Care 82 mg/dl (65-105)
[2022-08-11] MEDS: FLUTICASONE PROP 110 MCG INHALER 12 GM (*SP) 1 PUFF INHALATION ×2 (08:24→21:44)
[2022-08-11] MEDS: polyethylene glycoL 3350 17 GM POWD.PACK PO (09:49)
[2022-08-11] MEDS: carBAMazepine 200 MG TABLET PO (09:49)
[2022-08-11] MEDS: cloNIDine HCL 0.1 MG TABLET 0.3 MG PO ×2 (09:50→20:31)
[2022-08-11] MEDS: OLANZapine 5 MG TABLET 10 MG PO ×2 (09:50→20:34)
[2022-08-11] MEDS: DIVALPROEX SODIUM ER 500 MG TAB.24H PO (09:50)
[2022-08-11] MEDS: carvediloL 3.125 MG TABLET PO ×2 (09:50→20:30)
[2022-08-11] MEDS: HALOPERIDOL 5 MG TABLET PO (09:50)
[2022-08-11] MEDS: SERTRALINE HCL 50 MG TABLET PO (09:50)
[2022-08-11] MEDS: predniSONE 20 MG TABLET 40 MG PO (09:50)
[2022-08-11] MEDS: SERTRALINE HCL 25 MG TABLET PO (09:51)
[2022-08-11] MEDS: GABAPENTIN 400 MG CAPSULE PO (09:51)
[2022-08-11] MEDS: BETAMETHASONE/CLOTRIMAZOLE CR 45 GM TUBE 1 APPLIC TOPICAL ×2 (09:51→20:29)
[2022-08-11] MEDS: AZITHROMYCIN 500 MG/NS 250 ML 500 MG/250 ML BAG 250 MG IVPB (10:14)
--- NOTE | 2022-08-11 10:28 | PM.IMPN ---
Progress Note: A&P Assessment and Plan (1) Acute on chronic respiratory failure with hypoxia and hypercapnia: Code(s): J96.21 - Acute and chronic respiratory failure with hypoxia; J96.22 - Acute and chronic respiratory failure with hypercapnia Status: Acute Assessment and Plan: Patient normally on 4 L O2 nasal cannula chronically. She also wears BiPAP for obesity hypoventilation syndrome but is only compliant 4 nights per week. Patient was found unresponsive. Urine drug screen is positive for barbiturates (does not appear to be on phenobarb). ABG noted but the hypercarbia could be related to being unresponsive and/or from her minimal compliance with BiPAP. Her ABG is still not at goal She was here in april and her BiPAP settings were higher so will readjusted and check ABG in the morning. Continue O2 and wean to 4L while awake (2) Altered mental status: Qualifiers: Altered mental status type: unspecified Qualified Code(s): R41.82 - Altered mental status, unspecified Code(s): R41.82 - Altered mental status, unspecified Status: Acute Assessment and Plan: Patient was found unresponsive at the [facility]. She was minimal responsive to painful stimuli. CT of the brain showed no acute intracranial findings. She states that she felt the nursing was 'giving me too many pills' and 'they looked different'. Urine drug screen is positive for barbiturates (she is not on phenobarb or other meds to cause this). The poitive UDS goes unexplained. She was seen here in April with altered mental status and similar presentation. Related to seizures? Related to noncompliance with BiPAP? Related to inadvertent medication mix up? service coordinator notified about the possibility of usp mixing up the medications. If seizure, would expect worsening acidosis possibly. Follow. (3) Community acquired pneumonia: Qualifiers: Laterality: unspecified laterality Qualified Code(s): J18.9 - Pneumonia, unspecified organism Code(s): J18.9 - Pneumonia, unspecified organism Status: Acute Assessment and Plan: Patient found unresponsive at the [facility]. Chest x-ray on admission showed mild airspace disease in left lower lobe. Consider atelectasis vs aspiration. Repeat chest x-ray shows congestive changes and mild bilateral perihilar and basilar infiltrates. She does have a productive cough. No fever. White count normal. Blood cultures and sputum culture ordered. She has been started on azithromycin and Rocephin. Continue nebulizer treatments. Continue abx. Change to oral when O2 requirement improved. (4) CHF (congestive heart failure), NYHA class I: Code(s): I50.9 - Heart failure, unspecified Status: Acute Assessment and Plan: Patient has a history chronic diastolic CHF. Echo in August 2021 showing EF of 60-65% with grade 1 diastolic dysfunction, mild valvular disease and severe pulmonary hypertension. Continue Coreg. (5) Seizures: Code(s): R56.9 - Unspecified convulsions Status: Acute Assessment and Plan: As above. AMS related to unrecognized seizures? VPA level okay. Continue divalproex and Tegretol. Continue seizure precautions. (6) Obesity hypoventilation syndrome: Code(s): E66.2 - Morbid (severe) obesity with alveolar hypoventilation Status: Acute Assessment and Plan: As above. Continue with BiPAP with sleep (7) Hypertension: Code(s): I10 - Essential (primary) hypertension Status: Acute Assessment and Plan: Patient's blood pressure was reviewed on 08/11 Blood pressure better controlled. On Coreg, Clonidine and hydralazine. Also on Procardia but on hold at this time Will continue current medications and monitor for now. (8) Type 2 diabetes mellitus: Code(s): E11.9 - Type 2 diabetes mellitus without complications Status: Acute Assessment and Plan:
[2022-08-11 12:09] LABS: Glucose Point of Care 110 mg/dl (65-105)
[2022-08-11 13:13] LABS: Glucose Point of Care 113 mg/dl (65-105)
[2022-08-11 13:37] LABS: Alveolar/Arterial O2 Gradient 68.2 mmHg; Base Excess ABG 8.6 mEq/l (+/-2.0); Fractional Inspired Oxygen 36 %; HCO3 ABG 38.1 mEq/l (22.0-26.0); Oxygen Saturation ABG 95.8 % (95.0-100.0); Oxyhemoglobin 95.2 % THb (90.0-100.0); PO2 FiO2 Ratio Arterial Blood 2.58 %; Total Hemoglobin 11.9 g/dL (12.0-18.0)
[2022-08-11 13:38] LABS: PCO2 ABG 82.3 mmHg (35.0-45.0); pH ABG 7.283 (7.350-7.450)
[2022-08-11 13:39] LABS: Device NASAL CANNULA; Modified Allen's Test Pass; Site Drawn LEFT RADIAL
[2022-08-11 17:13] LABS: Alveolar/Arterial O2 Gradient 65.2 mmHg; Fractional Inspired Oxygen 30 %; HCO3 ABG 38.1 mEq/l (22.0-26.0); Oxygen Content ABG 14.6 %vol (16.0-22.0); Oxyhemoglobin 90.8 % THb (90.0-100.0); PO2 ABG 63.5 mmHg (80.0-100.0); PO2 FiO2 Ratio Arterial Blood 2.12 %; Total Hemoglobin 11.4 g/dL (12.0-18.0); pH ABG 7.339 (7.350-7.450)
[2022-08-11 17:14] LABS: Modified Allen's Test Pass; PCO2 ABG 72.5 mmHg (35.0-45.0); Site Drawn RIGHT RADIAL
[2022-08-11 17:17] LABS: Device NON-INVASIVE VENT
[2022-08-11 17:50] LABS: Glucose Point of Care 120 mg/dl (65-105)
[2022-08-11 19:58] LABS: Glucose Point of Care 187 mg/dl (65-105)
[2022-08-11] MEDS: ATORVASTATIN 20 MG TABLET PO (20:29)
[2022-08-11] MEDS: DIVALPROEX SODIUM ER 250 MG TAB.24H 750 MG PO (20:32)
[2022-08-11] MEDS: traZODone HCL 50 MG TABLET PO (20:35)
[2022-08-12] VITALS (24 sets, daily range): BP systolic 126–160; BP diastolic 57–89; PULSE 53–79; RESP 16–22; TEMP 36.1–36.8; O2SAT 74–100
[2022-08-12] MEDS: IPRATROPIUM BR 0.02% INH SOLN 0.5 MG/2.5 ML VIAL INHALATION ×3 (02:39→21:03)
[2022-08-12] MEDS: ALBUTEROL SULFATE NEB 2.5 MG/3 ML INH INHALATION ×3 (02:39→21:03)
[2022-08-12 04:42] LABS: Basophils Percent Auto 0.3 % (0.2-1.2); Eosinophils Percent Auto 0.5 % (0-4.4); Hematocrit 30.9 % (37.0-47.0); Hemoglobin 9.8 g/dL (12.0-15.0); Immature Granulocyte Absolute 0.02 K/mm3 (0.00-0.031); Immature Granulocyte Percent A 0.3 % (0-0.5); Lymphocytes Absolute Auto 1.56 K/mm3 (0.9-3.2); Lymphocytes Percent Auto 25.8 % (18.3-44.2); Mean Corpuscular HGB Conc 31.7 g/dl (32-36); Mean Corpuscular Hemoglobin 33.1 pg (26-34); Mean Corpuscular Volume 104.4 fl (80-100); Mean Platelet Volume 10.5 fl (7.4-10.4); Monocytes Absolute Auto 0.9 K/mm3 (0.1-0.6); Monocytes Percent Auto 14.4 % (2.6-8.5); Neutrophils Absolute Auto 3.6 K/mm3 (1.3-6.7); Neutrophils Percent Auto 58.7 % (45.5-73.1); Platelet Count Result 156 k/mm3 (150-375); Red Blood Count 2.96 M/mm3 (4.2-5.4); White Blood Count 6.1 K/mm3 (4.5-10.0)
[2022-08-12 04:57] LABS: Albumin Level 3.3 g/dL (3.5-5.1); Blood Urea Nitrogen 26 mg/dL (7-17); Calcium 8.3 mg/dL (8.4-10.2); Carbon Dioxide > 40 mmol/L (22-30); Chloride 99 mmol/L (98-107); Estimated CRCL calculation 64 ml/min; Estimated Glomerular Filt Rate > 60; Glucose 91 mg/dL (65-110); Magnesium 2.4 mg/dL (1.6-2.3); Phosphorus 3.4 mg/dL (2.5-4.5); Sodium 138 mmol/L (137-145)
[2022-08-12 05:22] LABS: Base Excess ABG 11.7 mEq/l (+/-2.0); Fractional Inspired Oxygen 30 %; HCO3 ABG 39.6 mEq/l (22.0-26.0); Oxygen Content ABG 14.9 %vol (16.0-22.0); Oxygen Saturation ABG 94.8 % (95.0-100.0); Oxyhemoglobin 93.9 % THb (90.0-100.0); PO2 ABG 79.1 mmHg (80.0-100.0); PO2 FiO2 Ratio Arterial Blood 2.64 %; Total Hemoglobin 11.2 g/dL (12.0-18.0); pH ABG 7.362 (7.350-7.450)
[2022-08-12 05:24] LABS: Device NON-INVASIVE VENT; Modified Allen's Test Pass; Non-Invasive Expiratory Pressure 8 CMH2O; Non-Invasive Inspiratory Pressure 20 CMH2O; Non-Invasive Vent Rate 12 /MIN; PCO2 ABG 71.3 mmHg (35.0-45.0); Site Drawn LEFT RADIAL
[2022-08-12] MEDS: hydrALAZINE HCL 50 MG TABLET 100 MG PO ×3 (06:03→21:48)
[2022-08-12] MEDS: SERTRALINE HCL 50 MG TABLET PO (08:17)
[2022-08-12] MEDS: OLANZapine 5 MG TABLET 10 MG PO ×2 (08:17→20:57)
[2022-08-12] MEDS: predniSONE 20 MG TABLET 40 MG PO (08:19)
[2022-08-12] MEDS: carBAMazepine 200 MG TABLET PO ×2 (08:20→16:56)
[2022-08-12] MEDS: HALOPERIDOL 5 MG TABLET PO ×2 (08:21→16:57)
[2022-08-12] MEDS: carvediloL 3.125 MG TABLET PO ×2 (08:21→20:55)
[2022-08-12] MEDS: GABAPENTIN 400 MG CAPSULE PO ×3 (08:21→16:56)
[2022-08-12] MEDS: polyethylene glycoL 3350 17 GM POWD.PACK PO (08:22)
[2022-08-12] MEDS: cloNIDine HCL 0.1 MG TABLET 0.3 MG PO ×2 (08:23→20:55)
[2022-08-12] MEDS: SERTRALINE HCL 25 MG TABLET PO (08:23)
[2022-08-12] MEDS: DIVALPROEX SODIUM ER 500 MG TAB.24H PO (08:24)
[2022-08-12 09:04] LABS: Glucose Point of Care 86 mg/dl (65-105)
[2022-08-12] MEDS: FLUTICASONE PROP 110 MCG INHALER 12 GM (*SP) 1 PUFF INHALATION ×2 (09:12→21:10)
[2022-08-12 11:50] LABS: Glucose Point of Care 178 mg/dl (65-105)
[2022-08-12] MEDS: AZITHROMYCIN 500 MG/NS 250 ML 500 MG/250 ML BAG 250 MG IVPB (11:59)
[2022-08-12] MEDS: BETAMETHASONE/CLOTRIMAZOLE CR 45 GM TUBE 1 APPLIC TOPICAL ×2 (12:07→20:58)
--- NOTE | 2022-08-12 14:08 | PCSTNOTE ---
Please refer to the Bedside Swallow Evaluation in the EMR. Please note, silent aspiration cannot be ruled out at bedside.
--- NOTE | 2022-08-12 15:45 | PCSTNOTE ---
Please refer to the Modified Barium Swallow Evaluation in the EMR.
--- NOTE | 2022-08-12 15:46 | PM.DS ---
DS: Admitting Diagnosis Discharge Date 08/12/22 Admitting Diagnosis Altered mental status DS: Discharge Diagnosis Discharge Diagnosis (1) Acute on chronic respiratory failure with hypoxia and hypercapnia: Code(s): J96.21 - Acute and chronic respiratory failure with hypoxia; J96.22 - Acute and chronic respiratory failure with hypercapnia Status: Acute (2) Altered mental status: Qualifiers: Altered mental status type: unspecified Qualified Code(s): R41.82 - Altered mental status, unspecified Code(s): R41.82 - Altered mental status, unspecified Status: Acute (3) Community acquired pneumonia: Qualifiers: Laterality: unspecified laterality Qualified Code(s): J18.9 - Pneumonia, unspecified organism Code(s): J18.9 - Pneumonia, unspecified organism Status: Acute (4) CHF (congestive heart failure), NYHA class I: Code(s): I50.9 - Heart failure, unspecified Status: Acute (5) Seizures: Code(s): R56.9 - Unspecified convulsions Status: Acute (6) Obesity hypoventilation syndrome: Code(s): E66.2 - Morbid (severe) obesity with alveolar hypoventilation Status: Acute (7) Hypertension: Code(s): I10 - Essential (primary) hypertension Status: Acute (8) Type 2 diabetes mellitus: Code(s): E11.9 - Type 2 diabetes mellitus without complications Status: Acute (9) Chronic obstructive pulmonary disease: Code(s): J44.9 - Chronic obstructive pulmonary disease, unspecified Status: Acute (10) Schizophrenia: Qualifiers: Schizophrenia type: unspecified Qualified Code(s): F20.9 - Schizophrenia, unspecified Code(s): F20.9 - Schizophrenia, unspecified Status: Chronic DS: Summary Hospital Course Reason for hospitalization: 71yo female with COPD and schizophrenia her for altered mental status. Please see H&P for details. Hospital Course: Patient was [facility] unresponsive at the [facility].? She was minimal responsive to painful stimuli.? CT of the brain showed no acute intracranial findings.? She states that she felt the nursing was 'giving me too many pills' and 'they looked different'. Urine drug screen is positive for barbiturates (she is not on phenobarb or other meds to cause this). The positive UDS goes unexplained. She was seen here in April with altered mental status and similar presentation. facility coordinator notified about the possibility of [facility]dc mixing up the medications. Patient normally on 3-4 L O2 nasal cannula chronically.? She also wears BiPAP for obesity hypoventilation syndrome but is only compliant 4 nights per week.? Patient was found unresponsive.? ABG noted with hypercarbia. BiPAP adjusted and her repeat ABG improved. Her mental status improved as well. No dysrhythmias noted ont tele. Chest x-ray on admission showed mild airspace disease in left lower lobe.? Consider atelectasis vs aspiration.? Repeat chest x-ray shows congestive changes and mild bilateral perihilar and basilar infiltrates.? She does have a productive cough but no fever and white count normal.? Blood cultures NGTD.? She has been started on azithromycin and Rocephin and nebulizer treatments.?Patient has a history chronic diastolic CHF.? Echo in August 2021 showing EF of 60-65% with grade 1 diastolic dysfunction, mild valvular disease and severe pulmonary hypertension.?Not felt to have acuter CHF. She has seizures and AMS could be related to unrecognized seizures VPA level okay. We continued divalproex and Tegretol.?She had a MBS showing no overt aspiration but some penetration but the patient was able to clear this. Spoke with the therapist who recommended regular with thin liquid diet. Patient overall did well and was able to be discharged on 08/12. Status at Discharge Cognitive/behavioral status at discharge: stable Time Spent with Patient Time attestation: Total time spent providing and/or coor
[2022-08-12 16:18] LABS: Glucose Point of Care 171 mg/dl (65-105)
[2022-08-12 17:02] LABS: SARS-CoV-2 RNA PCR Negative (Negative)
--- NOTE | 2022-08-12 19:22 | PC.NURSE ---
1700- orders to discharge to [facility]-- report given to Neal MAY- waiting for ambulance for transport back to facility
[2022-08-12 20:15] LABS: Glucose Point of Care 122 mg/dl (65-105)
[2022-08-12] MEDS: ATORVASTATIN 20 MG TABLET PO (20:57)
[2022-08-12] MEDS: traZODone HCL 50 MG TABLET PO (20:58)
[2022-08-12] MEDS: DIVALPROEX SODIUM ER 250 MG TAB.24H 750 MG PO (20:58)
--- NOTE | 2022-08-12 22:11 | PC.NURSE ---
patient left via ambulance, RN called [facility] to update RN.
[2022-08-14 08:35] LABS: Carbamazepine Tegretol 4.6 mcg/mL (4.0-12.0)
[2022-08-14 10:10] LABS: Non-Invasive Expiratory Pressure 8 CMH2O; Non-Invasive Inspiratory Pressure 20 CMH2O; Non-Invasive Vent Rate 12 /MIN
--- NOTE | 2022-08-21 08:36 | PC.NURSE ---
Blood cx are negative.
== END 2022-08-12 22:15 | DRG 139 ==
LOC: ANHED 10:06 → ANHIMU 16:55
PROVIDERS: Internal Medicine; Nurse Practitioner; Admitting Provider Internal Medicine; Emergency Provider Preventive Medicine Aerospace Medicine; Visit Provider Internal Medicine
DX: J18.9 Pneumonia, unspecified organism (principal); J96.21 Acute and chronic respiratory failure with hypoxia; I11.0 Hypertensive heart disease with heart failure; I50.32 Chronic diastolic (congestive) heart failure; E66.2 Morbid (severe) obesity with alveolar hypoventilation; R56.9 Unspecified convulsions; Z99.81 Dependence on supplemental oxygen; F20.9 Schizophrenia, unspecified; J96.22 Acute and chronic respiratory failure with hypercapnia; Z91.199 Patient's noncompliance with other medical treatment and regimen due to unspecified reason; E11.9 Type 2 diabetes mellitus without complications; R40.4 Transient alteration of awareness; J44.0 Chronic obstructive pulmonary disease with (acute) lower respiratory infection; Z20.822 Contact with and (suspected) exposure to COVID-19; K21.9 Gastro-esophageal reflux disease without esophagitis; Z96.642 Presence of left artificial hip joint; Z68.38 Body mass index [BMI] 38.0-38.9, adult; Z86.718 Personal history of other venous thrombosis and embolism; Z86.73 Personal history of transient ischemic attack (TIA), and cerebral infarction without residual deficits; Z90.49 Acquired absence of other specified parts of digestive tract
CPT/HCPCS: 36415; 36600; 70450; 71045; 80048; 80053; 80069; 80156; 80164; 80307; 81001; 82375; 82607; 82728; 82746; 82805; 82948; 83036; 83050; 83540; 83550; 83605; 83735; 84439; 84443; 84480; 85025; 85610; 85730; 86140; 87040; 87635; 87636; 92526; 92610; 92611; 93005; 94002; 94003; 94640; 96365; 96367; 99285; A9270; G0378; J0456; J0692; J0696; J2920; J7030; J7512

== ENCOUNTER 2022-08-25 10:06 | Inpatient (IN) | payer OTHER, SELFPAY ==
[2022-08-25] VITALS (17 sets, daily range): BP systolic 166–196; BP diastolic 76–95; PULSE 60–75; RESP 16–20; TEMP 36.3–37.2; O2SAT 94–100; BMI 39.9
--- NOTE | ~2022-08-25 | CT_ITS ---
EXAMINATION: CT brain wo con DATE: 08/25/2022 11:02 INDICATION: Altered mental status TECHNIQUE: Computed tomography (CT) of the head was performed without intravenous contrast. Sagittal and coronal reconstructions were performed. The mA was adjusted according to patient size. Iterative reconstruction technique was employed. The dose-length product was 681.00 mGy-cm. COMPARISON: head CT dated 08/09/2022 FINDINGS: No acute intracranial hemorrhage, acute infarction or abnormal extra axial fluid collection. May: Whi te matter Ventricles are normal and symmetric. No mass/mass effect. Moderate mucosal thickening throu ghout the paranasal sinuses. Small bilateral mastoid effusions. The orbits are normal. Intracranial c alcified cerebral atherosclerosis is noted. Hyperostosis frontalis. IMPRESSION: 1. No acute intracranial process. 2. Mild scattered white matter hypoattenuation consistent with chronic small vessel ischemic disease. Reviewed, dictated and finalized at location A. IMPRESSION: 1. No acute intracranial process. 2. Mild scattered white matter hypoattenuation consistent with chronic small ve ssel ischemic disease.
--- NOTE | ~2022-08-25 | XR_ITS ---
EXAMINATION: XR chest 1V portable INDICATION: Altered mental status TECHNIQUE: Portable AP chest at 1117 hours COMPARISON: 08/11/2022 FINDINGS: Cardiomegaly is noted. There are diffuse opacities throughout all lung zones. No pleural ef fusion or pneumothorax. IMPRESSION: 1. Diffuse lung disease which could reflect multifocal pneumonia versus pulmonary edema. Reviewed, dictated and finalized at location B. IMPRESSION: 1. Diffuse lung disease which could reflect multifocal pneumonia versus pulmona ry edema.
--- NOTE | ~2022-08-25 | XR_ITS ---
EXAMINATION: [id number] DATE: 08/27/2022 08:38 INDICATION: Medial right-sided knee pain post fall TECHNIQUE: AP and crosstable lateral views of the right knee were obtained. COMPARISON: None. FINDINGS: Alignment is normal. No fracture. Tricompartmental osteoarthritis with marginal osteophytes in all 3 compartments. There is remodeling of the articular surface of the medial tibial plateau suggesting th is is severe although this is not apparent as joint space narrowing likely due to nonweightbearing im aging. Soft tissues are unremarkable. No significant knee joint effusion or layering lipohemarthrosis . IMPRESSION: 1. 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 Reviewed, dictated and finalized at location A. IMPRESSION: 1. 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
--- NOTE | 2022-08-25 10:13 | ECG_ITS ---
Measurements Intervals [place] Rate: 64 P: 38 WY: 184 QRS: 36 QRSD: 81 T: 266 QT: 471 QTc: 487 Interpretive Statements SINUS RHYTHM NONSPECIFIC T-WAVE ABNORMALITY- DIFFUSE LEADS PROLONGED QT INTERVAL BASELINE ARTIFACT- V6 ABNORMAL ECG COMPARED TO ECG 08/09/2022 10:37:51 PROLONGED QT INTERVAL NOW PRESENT Electronically Signed On 08-25-2022 10:20:19 CDT by Willy Crawford D.O.
--- NOTE | 2022-08-25 10:17 | ED.AMS ---
HPI - Altered Mental Status General Chief Complaint: Altered Mental Status Stated Complaint: AMS History of Present Illness HPI narrative: This is a 71-year-old female, with past history of COPD and schizophrenia, well-known to me who is brought in by EMS from her [facility] for altered mental status. EMS reports, they were contacted for reduced responsiveness. On arrival, they state that patient was sitting in a wheelchair, with her head tilted forward with obvious difficulty breathing. Patient's O2 sats reported at 83% on 2 L. EMS reports with repositioning and increasing her O2 to 4 L, her mental status quickly began improving and her sats improved to 100%. There are no other reported changes in the patient's health. Related Data Home Medications Medication Instructions Recorded Confirmed benztropine 0.5 mg tablet 0.5 mg PO BID 01/24/20 08/25/22 carbamazepine 200 mg tablet 200 mg PO BID 01/24/20 08/25/22 hydralazine 100 mg tablet 100 mg PO TID 01/24/20 08/25/22 haloperidol 5 mg tablet 5 mg PO BID 01/25/20 08/25/22 sertraline 25 mg tablet 25 mg PO DAILY 01/25/20 08/25/22 sertraline 50 mg tablet 50 mg PO DAILY 01/25/20 08/25/22 trazodone 50 mg tablet 50 mg PO HS 01/25/20 08/25/22 carvedilol 3.125 mg tablet 3.125 mg PO BID 05/22/21 08/25/22 Artificial Tears 1 drp EACH EYE Q6H PRN Dry Eye(S) 09/10/21 08/25/22 atorvastatin 20 mg tablet 20 mg PO HS 09/10/21 08/25/22 clonidine HCl 0.3 mg tablet 0.3 mg PO Q12H 09/10/21 08/25/22 olanzapine 10 mg tablet 10 mg PO Q12H 09/10/21 08/25/22 gabapentin 400 mg capsule 400 mg PO TID 04/29/22 08/25/22 polyvinyl alcohol 1.4 % eye drops 1 drp EACH EYE Q6H PRN Dry Eye(S) 04/29/22 08/25/22 fluticasone propionate 110 1 puff inhalation BID 08/09/22 08/25/22 mcg/actuation HFA aerosol inhaler (Flovent HFA) nifedipine 60 mg tablet,extended 60 mg PO DAILY 08/09/22 08/25/22 release 24 hr (Procardia XL) nystatin-triamcinolone topical 1 applic topical BID 08/09/22 08/25/22 cream polyethylene glycol 3350 17 gram 17 g PO DAILY 08/09/22 08/25/22 oral powder packet divalproex 250 mg tablet,extended 750 mg PO HS 08/10/22 08/25/22 release 24 hr divalproex 500 mg tablet,extended 500 mg PO DAILY 08/10/22 08/25/22 release 24 hr aripiprazole 30 mg tablet 30 mg PO DAILY 08/25/22 08/25/22 aspirin 81 mg tablet 81 mg PO DAILY 08/25/22 08/25/22 docusate sodium 100 mg capsule 100 mg PO DAILY 08/25/22 08/25/22 ergocalciferol (vitamin D2) 1,250 1,250 mcg PO MONTHLY 08/25/22 08/25/22 mcg (50,000 unit) capsule famotidine 20 mg tablet 20 mg PO DAILY 08/25/22 08/25/22 ferrous sulfate 325 mg (65 mg 325 mg PO DAILY 08/25/22 08/25/22 iron) tablet Allergies Allergy/AdvReac Type Severity Reaction Status Date / Time Penicillins Allergy Unknown Hives / Verified 08/25/22 11:12 [place] Review of Systems Review of Systems: Unable to obtain review of systems due to patient's altered mental status [facility] Past Medical History Medical History (Updated 08/25/22 @ 13:45 by Chel York PA-C) Asthma-COPD overlap syndrome Cerebrovascular accident Chronic respiratory failure with hypoxia and hypercapnia Deep venous thrombosis Depression Diastolic congestive heart failure EF 60 to 65% in August 2021. Gastroesophageal reflux disease Hypertension Migraine headache Obesity hypoventilation syndrome Obstructive sleep apnea treated with BiPAP Pulmonary hypertension Severe on echo in August 2021 with an estimated PASP of 63 mmHg. Schizophrenia Seizure disorder Type 2 diabetes mellitus Diet-controlled with a recent A1c of 5.2%. Surgical History Surgical History (Updated 08/25/22 @ 13:50 by Chel York PA-C) History of arthroscopy of right knee History of cardiac catheterization History of section, classical History of cholecystectomy History of left hip replacement History of sinus surgery Family History Family History
[2022-08-25 10:27] LABS: Basophils Percent Auto 0.8 % (0.2-1.2); Eosinophils Absolute Auto 0.1 K/mm3 (0-0.3); Eosinophils Percent Auto 1.4 % (0-4.4); Hematocrit 35.6 % (37.0-47.0); Immature Granulocyte Absolute 0.02 K/mm3 (0.00-0.031); Immature Granulocyte Percent A 0.4 % (0-0.5); Lymphocytes Absolute Auto 1.08 K/mm3 (0.9-3.2); Mean Corpuscular HGB Conc 30.9 g/dl (32-36); Mean Corpuscular Hemoglobin 33.4 pg (26-34); Mean Corpuscular Volume 108.2 fl (80-100); Mean Platelet Volume 10.1 fl (7.4-10.4); Monocytes Absolute Auto 0.5 K/mm3 (0.1-0.6); Monocytes Percent Auto 10.4 % (2.6-8.5); Neutrophils Absolute Auto 3.2 K/mm3 (1.3-6.7); Platelet Count Result 177 k/mm3 (150-375); Red Blood Count 3.29 M/mm3 (4.2-5.4); Red Cell Distribution Width 14.2 % (11.5-14.5); White Blood Count 4.9 K/mm3 (4.5-10.0)
--- NOTE | 2022-08-25 10:29 | PC.NURSE ---
bladder scanned at this time, most found 189ml
[2022-08-25 10:32] LABS: Fractional Inspired Oxygen 28 %; HCO3 VBG 36.6 mEq/l (24.0-30.0); PO2 VBG 67.4 mmHg (35.0-45.0); pH VBG 7.337 (7.300-7.400)
[2022-08-25 10:34] LABS: Device NASAL CANNULA; PCO2 VBG 69.9 mmHg (42.0-48.0)
[2022-08-25 10:41] LABS: Acetaminophen < 10 ug/mL (10-30); Ethanol < 10 mg/dL (<10); Salicylate < 1.0 mg/dL (2-20)
[2022-08-25] MEDS: IPRATROPIUM BR 0.02% INH SOLN 0.5 MG/2.5 ML VIAL 1 MG INHALATION (10:46)
[2022-08-25] MEDS: ALBUTEROL SULFATE NEB 2.5 MG/3 ML INH 5 MG INHALATION (10:46)
[2022-08-25 10:51] LABS: NT Pro B Type Natriuretic Pept 5760 pg/mL (19.9-100); Troponin I 0.032 ng/mL (0.000-0.034)
[2022-08-25 10:58] LABS: Alanine Aminotransferase 15 U/L (6-35); Albumin Level 3.7 g/dL (3.5-5.1); Alkaline Phosphatase 60 U/L (38-126); Aspartate Amino Transferase 24 U/L (14-36); Bilirubin,Total 0.3 mg/dL (0.2-1.3); Blood Urea Nitrogen 17 mg/dL (7-17); Calcium 8.4 mg/dL (8.4-10.2); Carbon Dioxide > 40 mmol/L (22-30); Chloride 97 mmol/L (98-107); Estimated Glomerular Filt Rate > 60; Glucose 105 mg/dL (65-110); Potassium 3.4 mmol/L (3.4-5.0); Sodium 139 mmol/L (137-145)
[2022-08-25 11:02] LABS: Platelet Estimate Adequate (Adequate)
[2022-08-25 11:03] LABS: Anisocytosis 1+ (NORMAL)
[2022-08-25 11:07] LABS: Appearance Urine Clear (Clear); Bacteria Urine None Seen /hpf; Bilirubin Urine Negative (Negative); Blood Urine Negative (Negative); Color Urine Dark Yellow (Yellow); Glucose Urine UA Negative (Negative); Ketones Urine Trace mg/dL (Negative); Leukocyte Esterase Ur Negative LEU/UL (Negative); Need Manual Microscopic Reviewed; Nitrate Urine Negative (Negative); Protein Urine 2+ mg/dL (Negative); RBC Urine 0-2 /hpf (0-2); Specific Grav Ur 1.028 (1.001-1.035); Squamous Epithelial Cell Urine None seen /hpf (Few); WBC Urine 0-5 /hpf
[2022-08-25 11:08] LABS: Add Urine Microscopic? YES
[2022-08-25 11:15] LABS: Thyroid Stimulating Hormone 0.667 uIU/mL (0.465-4.680)
[2022-08-25 11:20] LABS: Amphetamine Screen Urine Negative (Negative); Barbiturate Screen Urine Negative (Negative); Benzodiazepines Screen Urine Negative (Negative); Cannabinoid Screen Urine Negative (Negative); Cocaine Screen Urine Negative (Negative); Methadone Screen Urine Negative (Negative); Opiate Screen Urine Negative (Negative); Phencyclidine Screen Urine Negative (Negative)
[2022-08-25 11:33] LABS: Schistocytes None Seen (NORMAL)
--- NOTE | 2022-08-25 13:06 | PM.IMHP ---
H&P: HPI History of Present Illness Date/Time: 08/25/22 13:45 Chief Complaint: Altered mental status. Narrative: This is a 71-year-old female with chronic respiratory failure on oxygen, obstructive sleep apnea on BiPAP, obesity hypoventilation syndrome, coronary artery disease, diastolic congestive heart failure, hypertension, diet-controlled diabetes, seizures, schizophrenia, and depression who presented to the emergency department via EMS from [facility] for evaluation of altered mental status. Patient provides the following history however some of the following is supplemented via a review of her EMR as she does not really remember what happened today. She is well known to myself and the hospitalist service and she seems to be at her baseline. Staff at her nursing facility found her sitting in her wheelchair with her head tilted forward and she was reportedly difficult to arouse. She was hypoxic with an SpO2 of 83% on 2 L and with repositioning and increasing her oxygen she quickly improved. The patient does not really remember the event is wondering if she may have had a seizure and in fact she thinks he may have had a seizure yesterday. She was afebrile on arrival to the emergency department with stable vital signs and blood pressures in the 160s systolic. CMP and CBC are comparable to prior lab draws. Her proBNP however is markedly elevated from her baseline. Urinalysis and urine drug screen were really unremarkable. Head CT showed no acute findings. Chest x-ray showed diffuse lung disease which could reflect multifocal pneumonia versus pulmonary edema. Given her elevated proBNP and swelling in the extremities, she was started on diuretics and she is being admitted in this setting. With further questioning she does endorse mild orthopnea and increasing swelling in her feet. He has no current complaint and she denies fever, chills, sweats, sinus congestion, sore throat, cough, chest pain, nausea, vomiting, diarrhea, and dysuria. Review of Systems Review of Systems: Twelve systems were reviewed and are negative except for as per HPI. [facility] Past Medical History Medical History (Updated 08/25/22 @ 13:45 by Chel Yrok PA-C) Asthma-COPD overlap syndrome Cerebrovascular accident Chronic respiratory failure with hypoxia and hypercapnia Deep venous thrombosis Depression Diastolic congestive heart failure EF 60 to 65% in August 2021. Gastroesophageal reflux disease Hypertension Migraine headache Obesity hypoventilation syndrome Obstructive sleep apnea treated with BiPAP Pulmonary hypertension Severe on echo in August 2021 with an estimated PASP of 63 mmHg. Schizophrenia Seizure disorder Type 2 diabetes mellitus Diet-controlled with a recent A1c of 5.2%. Surgical History Surgical History (Updated 08/25/22 @ 13:50 by Chel York PA-C) History of arthroscopy of right knee History of cardiac catheterization History of section, classical History of cholecystectomy History of left hip replacement History of sinus surgery Family History Family History Mother Heart disease Cancer Cerebrovascular accident Sibling Pacemaker Social History Social History (Updated 08/25/22 @ 13:47 by Chel York PA-C) Social History: Surrogate medical decision maker: Carri Rangel. Code status: Full code. Smoking packs per day: 1 Smoking cigarettes per day: 20.0 Years smoked: 21 Smoking pack-years: 21.00 Smoking status: Never smoker Second hand tobacco smoke exposure: Yes Alcohol intake: unknown Substance use: unknown Substance use type: does not use Lack of Transportation: No Lack of Food: Never True Current Housing: I Have Housing Concerned About Future Housing: No Difficulty Paying Gas/Electric Bills: No Difficulty Paying for Meds: No Currently Unemployed: No Education: High School Diploma/GED Di
--- NOTE | 2022-08-25 15:35 | PC.NURSE ---
This patient, Yenny Hernandez, was admitted to Medical Room 341-01. Patient/family oriented to hospital policies and general routines including ID bracelet, bed and alarms, visiting hours, pain management, procedures, bathroom and other care routines, personal items, smoking policy, room service/diet, and visiting hours. Information on how to activate the Rapid Response Team has been discussed. Patient/Family are encouraged to report perceived risks to care and to ask questions if they do not understand what they are told or what they should do.
[2022-08-25 16:28] LABS: Troponin I 0.019 ng/mL (0.000-0.034)
[2022-08-25 16:52] LABS: Valproic Acid 69.9 ug/mL (50-120)
[2022-08-25] MEDS: FUROSEMIDE INJ 40 MG/4 ML VIAL IV PUSH (17:31)
[2022-08-25] MEDS: carBAMazepine 200 MG TABLET PO (23:08)
[2022-08-25] MEDS: DIVALPROEX SODIUM ER 250 MG TAB.24H 750 MG PO (23:08)
[2022-08-25] MEDS: cloNIDine HCL 0.1 MG TABLET 0.3 MG PO (23:08)
[2022-08-25] MEDS: BENZTROPINE MESYLATE 0.5 MG TABLET PO (23:08)
[2022-08-25] MEDS: OLANZapine 5 MG TABLET 10 MG PO (23:09)
[2022-08-25] MEDS: carvediloL 3.125 MG TABLET PO (23:09)
[2022-08-26] VITALS (25 sets, daily range): BP systolic 116–187; BP diastolic 51–97; PULSE 57–85; RESP 14–18; TEMP 36.1–37.1; O2SAT 91–100
[2022-08-26] MEDS: hydrALAZINE HCL 50 MG TABLET 100 MG PO ×2 (06:04→20:42)
[2022-08-26 06:25] LABS: Basophils Percent Auto 0.7 % (0.2-1.2); Eosinophils Absolute Auto 0.1 K/mm3 (0-0.3); Eosinophils Percent Auto 2.5 % (0-4.4); Hematocrit 37.2 % (37.0-47.0); Hemoglobin 11.5 g/dL (12.0-15.0); Immature Granulocyte Absolute 0.01 K/mm3 (0.00-0.031); Immature Granulocyte Percent A 0.2 % (0-0.5); Lymphocytes Absolute Auto 1.28 K/mm3 (0.9-3.2); Lymphocytes Percent Auto 31.5 % (18.3-44.2); Mean Corpuscular HGB Conc 30.9 g/dl (32-36); Mean Corpuscular Hemoglobin 32.4 pg (26-34); Mean Corpuscular Volume 104.8 fl (80-100); Mean Platelet Volume 9.9 fl (7.4-10.4); Monocytes Absolute Auto 0.8 K/mm3 (0.1-0.6); Monocytes Percent Auto 19.5 % (2.6-8.5); Neutrophils Absolute Auto 1.9 K/mm3 (1.3-6.7); Neutrophils Percent Auto 45.6 % (45.5-73.1); Platelet Count Result 195 k/mm3 (150-375); Red Blood Count 3.55 M/mm3 (4.2-5.4); Red Cell Distribution Width 13.6 % (11.5-14.5); White Blood Count 4.1 K/mm3 (4.5-10.0)
[2022-08-26 06:49] LABS: Blood Urea Nitrogen 10 mg/dL (7-17); Calcium 8.7 mg/dL (8.4-10.2); Carbon Dioxide > 40 mmol/L (22-30); Chloride 91 mmol/L (98-107); Estimated CRCL calculation 86 ml/min; Estimated Glomerular Filt Rate > 60; Glucose 95 mg/dL (65-110); Magnesium 1.6 mg/dL (1.6-2.3); Potassium 3.3 mmol/L (3.4-5.0); Sodium 137 mmol/L (137-145)
[2022-08-26] MEDS: FLUTICASONE PROP 110 MCG INHALER 12 GM (*SP) 1 PUFF INHALATION ×2 (07:02→19:12)
[2022-08-26] MEDS: ALBUTEROL SULFATE NEB 2.5 MG/3 ML INH INHALATION ×4 (07:02→19:12)
[2022-08-26] MEDS: IPRATROPIUM BR 0.02% INH SOLN 0.5 MG/2.5 ML VIAL INHALATION ×4 (07:03→19:12)
[2022-08-26] MEDS: ARIPiprazole 10 MG TABLET 30 MG PO (08:57)
[2022-08-26] MEDS: POTASSIUM CHLORIDE 20 MEQ ER TABLET PO (08:57)
[2022-08-26] MEDS: DOCUSATE SODIUM 100 MG CAPSULE PO (08:58)
[2022-08-26] MEDS: FAMOTIDINE 20 MG TABLET PO (08:58)
[2022-08-26] MEDS: carvediloL 3.125 MG TABLET PO ×2 (08:58→20:42)
[2022-08-26] MEDS: DIVALPROEX SODIUM ER 500 MG TAB.24H PO (08:58)
[2022-08-26] MEDS: cloNIDine HCL 0.1 MG TABLET 0.3 MG PO ×2 (08:58→20:42)
[2022-08-26] MEDS: FERROUS SULFATE 324 MG TABLET PO (08:58)
[2022-08-26] MEDS: ASPIRIN 81 MG ENTERIC TABLET PO (08:58)
[2022-08-26] MEDS: BENZTROPINE MESYLATE 0.5 MG TABLET PO ×2 (08:58→20:42)
[2022-08-26] MEDS: BETAMETHASONE/CLOTRIMAZOLE CR 15 GM TUBE 1 APPLIC TOPICAL ×2 (08:58→17:10)
[2022-08-26] MEDS: carBAMazepine 200 MG TABLET PO ×2 (08:58→20:41)
[2022-08-26] MEDS: HALOPERIDOL 5 MG TABLET PO (08:59)
[2022-08-26] MEDS: OLANZapine 5 MG TABLET 10 MG PO ×2 (08:59→20:42)
[2022-08-26] MEDS: SERTRALINE HCL 25 MG TABLET PO (08:59)
[2022-08-26] MEDS: SERTRALINE HCL 50 MG TABLET PO (08:59)
[2022-08-26] MEDS: NIFEdipine 30 MG TAB.ER.24 60 MG PO (08:59)
[2022-08-26] MEDS: polyethylene glycoL 3350 17 GM POWD.PACK PO (08:59)
[2022-08-26] MEDS: GABAPENTIN 400 MG CAPSULE PO ×2 (08:59→17:10)
[2022-08-26] MEDS: FUROSEMIDE INJ 40 MG/4 ML VIAL IV PUSH ×2 (08:59→17:10)
--- NOTE | 2022-08-26 10:59 | PC.NURSE ---
Patient was not responding verbally, very lethargic, and drowsy. Dr Merida is the hospitalist overseeing this patient and was on the unit at the time. Crop Puller notified him of patient's changes from this morning during morning medication pass. Vital signs were taken and within normal limits (see VITALS). Dr Merida was at bedside and reviewed vital signs. nfl player Analia was notified as well and assessed the patient. Crop Puller and nfl player were able to arouse patient, but patient went right back to not responding seconds later. Will continue to monitor patient and take vitals signs again.
--- NOTE | 2022-08-26 13:11 | ECHO_ITS ---
Patient Info Name: Yenny Hernandez Age: 71 years : 1950 Gender: Female Ht: 60 in Wt: 211 lbs BSA: 2.07 m2 HR: 72 bpm BP: 182 / 82 mmHg Heart Rhythm: Sinus Rhythm Technical Quality: Fair Exam Date: 08/26/2022 11:12 AM Exam Location: [facility] Patient Status: Inpatient Admit Date: 08/25/2022 Staff Ordering Physician: Chel York PA-C Associate Merchant: Kevin Gómez RDCS Attending Provider: Benjamin Leavitt MD Referring Physician: Jaylen SALAZAR; Exam Type: CA echo doppler color flow Study Info Indications - CHF/pulmonary edema Complete two-dimensional, color flow and Doppler transthoracic echocardiogram is performed. Summary 1. Complete two-dimensional, color flow and Doppler transthoracic echocardiogram is performed. 2. Left ventricular chamber dimension is normal. 3. Left ventricular systolic function is normal, estimated at 60-65%. 4. The left ventricular diastolic function is grade I diastolic dysfunction. 5. E/e' 17 is elevated. 6. Left atrial chamber dimension is mildly enlarged. 7. The aortic valve is not well visualized. Cannot determine number of aortic valve leaflets. 8. There is moderate aortic valve sclerosis. 9. There is mild aortic valve stenosis with a peak velocity of 170 cm/s, mean gradient of 6 mmHg, and aortic valve area of 1.6 cm2. 10. The mitral valve has moderately calcified annulus. 11. There is trace mitral valve regurgitation. 12. There is mild to moderate tricuspid valve regurgitation. 13. Moderate pulmonary hypertension, estimated pulmonary arterial systolic pressure is 52 mmHg. 14. There is mild pulmonic regurgitation. Left Ventricle E/e' 17 is elevated. Left ventricular chamber dimension is normal. Left ventricular systolic function is normal, estimated at 60-65%. The left ventricular diastolic function is grade I diastolic dysfunction. Right Ventricle Right ventricular systolic function is normal and with normal TAPSE 2.6 cm. Right ventricular chamber dimension is normal. Left Atria Left atrial chamber dimension is mildly enlarged. Right Atria Right atrial chamber dimension is normal. Aortic Valve The aortic valve is not well visualized. Cannot determine number of aortic valve leaflets. There is moderate aortic valve sclerosis. There is mild aortic valve stenosis with a peak velocity of 170 cm/s, mean gradient of 6 mmHg, and aortic valve area of 1.6 cm2. There is no aortic valve regurgitation. Pulmonic Valve There is mild pulmonic regurgitation. Mitral Valve The mitral valve has moderately calcified annulus. There is no mitral valve stenosis. There is trace mitral valve regurgitation. Tricuspid Valve There is mild to moderate tricuspid valve regurgitation. Moderate pulmonary hypertension, estimated pulmonary arterial systolic pressure is 52 mmHg. Pericardium/Pleural There is no pericardial effusion. Inferior Vena Cava Normal inferior vena cava with >50% collapse upon inspiration consistent with normal right atrial pressure, 5 mmHg. Aorta The aortic root size at the sinus of Valsalva is normal. Left Ventricular Outflow Tract Name Value Normal LVOT 2D LVOT Diameter 1.7 cm LVOT Doppler LVOT Peak Gradient 6 mmHg
--- NOTE | 2022-08-26 14:04 | WPDPN ---
Progress Note: A&P Assessment and Plan (1) Altered mental status: Qualifiers: Altered mental status type: unspecified Qualified Code(s): R41.82 - Altered mental status, unspecified Code(s): R41.82 - Altered mental status, unspecified Status: Acute Assessment and Plan: 08/26/2022 interval history: Patient is a poor historian and unable to provider detail ROS, patient was sent with AMS most likely due to polypharmacy as patient is on depakot, Tegretol, clinidine, gabapentin, haldol, and zypreza, unable to wean patient of these medications as high risk of withdrawal, and also found to have shortness of breath 2/2 congestive heart failure, patient is being diurese, will monitor, patient c/o right knee pain, not sure about injury, its appear swollen, will do x-ray and have PT/OT evaluate the patient. (2) CHF (congestive heart failure): Qualifiers: Heart failure chronicity: acute Heart failure type: unspecified Qualified Code(s): I50.9 - Heart failure, unspecified Code(s): I50.9 - Heart failure, unspecified Status: Acute Assessment and Plan: patient with shortness of breath suspect secondary to congestive heart failure patient is being diuresed etiology uncertain will follow-up on cardiac echo (3) Seizure disorder: Code(s): G40.909 - Epilepsy, unspecified, not intractable, without status epilepticus Status: Acute Assessment and Plan: patient with history of seizures discharge on Depakote and Tegretol, will clinically monitor Subjective Date/time seen: 08/26/22 14:04 Interval history: Altered mental status. HPI-Narrative: This is a 71-year-old female with chronic respiratory failure on oxygen, obstructive sleep apnea on BiPAP, obesity hypoventilation syndrome, coronary artery disease, diastolic congestive heart failure, hypertension, diet-controlled diabetes, seizures, schizophrenia, and depression who presented to the emergency department via EMS from [facility] for evaluation of altered mental status. Patient provides the following history however some of the following is supplemented via a review of her EMR as she does not really remember what happened today. She is well known to myself and the hospitalist service and she seems to be at her baseline. Staff at her nursing facility found her sitting in her wheelchair with her head tilted forward and she was reportedly difficult to arouse. She was hypoxic with an SpO2 of 83% on 2 L and with repositioning and increasing her oxygen she quickly improved. The patient does not really remember the event is wondering if she may have had a seizure and in fact she thinks he may have had a seizure yesterday. She was afebrile on arrival to the emergency department with stable vital signs and blood pressures in the 160s systolic. CMP and CBC are comparable to prior lab draws. Her proBNP however is markedly elevated from her baseline. Urinalysis and urine drug screen were really unremarkable. Head CT showed no acute findings. Chest x-ray showed diffuse lung disease which could reflect multifocal pneumonia versus pulmonary edema. Given her elevated proBNP and swelling in the extremities, she was started on diuretics and she is being admitted in this setting. With further questioning she does endorse mild orthopnea and increasing swelling in her feet. He has no current complaint and she denies fever, chills, sweats, sinus congestion, sore throat, cough, chest pain, nausea, vomiting, diarrhea, and dysuria. 08/26/2022 interval history: Patient is a poor historian and unable to provider detail ROS, patient was sent with AMS most likely due to polypharmacy as patient is on depakot, Tegretol, clinidine, gabapentin, haldol, and zypreza, unable to wean patient of these medications as high risk of withdrawal, and also found to have shortness of breath 2/2 congestive heart failure, patient is being diurese, will monitor, patient c/o r
[2022-08-26] MEDS: ATORVASTATIN 20 MG TABLET PO (20:42)
[2022-08-26] MEDS: traZODone HCL 50 MG TABLET PO (20:42)
[2022-08-26] MEDS: DIVALPROEX SODIUM ER 250 MG TAB.24H 750 MG PO (20:42)
[2022-08-27] VITALS (20 sets, daily range): BP systolic 126–154; BP diastolic 73–94; PULSE 60–77; RESP 14–18; TEMP 36.3–36.4; O2SAT 93–100
[2022-08-27] MEDS: hydrALAZINE HCL 50 MG TABLET 100 MG PO ×2 (05:42→20:18)
[2022-08-27 05:56] LABS: Hematocrit 36.2 % (37.0-47.0); Hemoglobin 11.3 g/dL (12.0-15.0); Mean Corpuscular HGB Conc 31.2 g/dl (32-36); Mean Corpuscular Hemoglobin 33.2 pg (26-34); Mean Corpuscular Volume 106.5 fl (80-100); Mean Platelet Volume 10.1 fl (7.4-10.4); Platelet Count Result 207 k/mm3 (150-375); Red Cell Distribution Width 13.9 % (11.5-14.5); White Blood Count 3.5 K/mm3 (4.5-10.0)
[2022-08-27 06:12] LABS: Blood Urea Nitrogen 10 mg/dL (7-17); Calcium 8.3 mg/dL (8.4-10.2); Carbon Dioxide > 40 mmol/L (22-30); Chloride 89 mmol/L (98-107); Estimated CRCL calculation 63 ml/min; Estimated Glomerular Filt Rate > 60; Glucose 90 mg/dL (65-110); Magnesium 1.5 mg/dL (1.6-2.3); Potassium 3.3 mmol/L (3.4-5.0); Sodium 138 mmol/L (137-145)
[2022-08-27] MEDS: IPRATROPIUM BR 0.02% INH SOLN 0.5 MG/2.5 ML VIAL INHALATION ×2 (08:15→20:08)
[2022-08-27] MEDS: ALBUTEROL SULFATE NEB 2.5 MG/3 ML INH INHALATION ×2 (08:16→20:08)
--- NOTE | 2022-08-27 08:17 | PC.NURSE ---
Spoke with Dr. Merida in regards to patients condition update yesterday after AM medications in previous notation. Dr. Merida verbalized to continue all AM medications as patient is on several psych medications and that it is a fragile weaning process that cannot be abruptly stopped.
[2022-08-27] MEDS: MAGNESIUM SULF 2 GM/WATER 50ML 2 GM/50 ML BAG IVPB (09:34)
[2022-08-27] MEDS: POTASSIUM CHLORIDE 20 MEQ PACKET (FOR LIQUID) 40 MEQ PO (09:36)
[2022-08-27] MEDS: POTASSIUM CHLORIDE 20 MEQ ER TABLET PO (09:36)
[2022-08-27] MEDS: BETAMETHASONE/CLOTRIMAZOLE CR 15 GM TUBE 1 APPLIC TOPICAL ×2 (09:36→17:57)
[2022-08-27] MEDS: ARIPiprazole 10 MG TABLET 30 MG PO (09:36)
[2022-08-27] MEDS: ASPIRIN 81 MG ENTERIC TABLET PO (09:36)
[2022-08-27] MEDS: BENZTROPINE MESYLATE 0.5 MG TABLET PO ×2 (09:36→20:20)
[2022-08-27] MEDS: ENOXAPARIN 40 MG/0.4 ML SYRINGE SUB-Q (09:37)
[2022-08-27] MEDS: DIVALPROEX SODIUM ER 500 MG TAB.24H PO (09:37)
[2022-08-27] MEDS: FERROUS SULFATE 324 MG TABLET PO (09:37)
[2022-08-27] MEDS: DOCUSATE SODIUM 100 MG CAPSULE PO (09:37)
[2022-08-27] MEDS: FUROSEMIDE INJ 40 MG/4 ML VIAL IV PUSH ×2 (09:37→20:18)
[2022-08-27] MEDS: carvediloL 3.125 MG TABLET PO ×2 (09:37→20:19)
[2022-08-27] MEDS: GABAPENTIN 400 MG CAPSULE PO ×2 (09:37→17:57)
[2022-08-27] MEDS: carBAMazepine 200 MG TABLET PO ×2 (09:37→20:19)
[2022-08-27] MEDS: cloNIDine HCL 0.1 MG TABLET 0.3 MG PO ×2 (09:37→20:19)
[2022-08-27] MEDS: SERTRALINE HCL 25 MG TABLET PO (09:38)
[2022-08-27] MEDS: MAGNESIUM OXIDE 400 MG TABLET PO (09:38)
[2022-08-27] MEDS: OLANZapine 5 MG TABLET 10 MG PO ×2 (09:38→20:18)
[2022-08-27] MEDS: NIFEdipine 30 MG TAB.ER.24 60 MG PO (09:38)
[2022-08-27] MEDS: HALOPERIDOL 5 MG TABLET PO ×2 (09:38→17:57)
[2022-08-27] MEDS: SERTRALINE HCL 50 MG TABLET PO (09:38)
[2022-08-27] MEDS: polyethylene glycoL 3350 17 GM POWD.PACK PO (09:38)
[2022-08-27] MEDS: FAMOTIDINE 20 MG TABLET PO (09:43)
[2022-08-27] MEDS: DOXYCYCLINE HYCLATE 100 MG TABLET PO ×2 (10:22→18:00)
[2022-08-27] MEDS: guaiFENesin 12 HR 600 MG TABCR PO ×2 (11:48→20:19)
--- NOTE | 2022-08-27 13:34 | PCRCNOTE ---
Window of time for administration has passed. See next scheduled administration.
--- NOTE | 2022-08-27 14:50 | PC.NURSE ---
Gave an update on patient to [facility].
--- NOTE | 2022-08-27 15:18 | WPDPN ---
Progress Note: A&P Assessment and Plan (1) Altered mental status: Qualifiers: Altered mental status type: unspecified Qualified Code(s): R41.82 - Altered mental status, unspecified Code(s): R41.82 - Altered mental status, unspecified Status: Acute Assessment and Plan: 08/27/2022 interval history: Patient is a poor historian and unable to provider detail ROS, patient remains confused patient was sent with AMS most likely due to polypharmacy as patient is on depakot, Tegretol, clinidine, gabapentin, haldol, and zypreza, unable to wean patient of these medications as high risk of withdrawal, and also found to have shortness of breath 2/2 congestive heart failure, patient is being diurese, will monitor, patient c/o right knee pain, not sure about injury, its appear swollen, x-ray showed severed OA, will consult orthopedic for further recommendation to follow and have PT/OT evaluate the patient. (2) CHF (congestive heart failure): Qualifiers: Heart failure chronicity: acute Heart failure type: unspecified Qualified Code(s): I50.9 - Heart failure, unspecified Code(s): I50.9 - Heart failure, unspecified Status: Acute Assessment and Plan: patient with shortness of breath suspect secondary to congestive heart failure patient is being diuresed etiology uncertain will follow-up on cardiac echo (3) Seizure disorder: Code(s): G40.909 - Epilepsy, unspecified, not intractable, without status epilepticus Status: Acute Assessment and Plan: patient with history of seizures discharge on Depakote and Tegretol, will clinically monitor Subjective Date/time seen: 08/27/22 15:18 Interval history: Altered mental status. HPI-Narrative: This is a 71-year-old female with chronic respiratory failure on oxygen, obstructive sleep apnea on BiPAP, obesity hypoventilation syndrome, coronary artery disease, diastolic congestive heart failure, hypertension, diet-controlled diabetes, seizures, schizophrenia, and depression who presented to the emergency department via EMS from [facility] for evaluation of altered mental status. Patient provides the following history however some of the following is supplemented via a review of her EMR as she does not really remember what happened today. She is well known to myself and the hospitalist service and she seems to be at her baseline. Staff at her nursing facility found her sitting in her wheelchair with her head tilted forward and she was reportedly difficult to arouse. She was hypoxic with an SpO2 of 83% on 2 L and with repositioning and increasing her oxygen she quickly improved. The patient does not really remember the event is wondering if she may have had a seizure and in fact she thinks he may have had a seizure yesterday. She was afebrile on arrival to the emergency department with stable vital signs and blood pressures in the 160s systolic. CMP and CBC are comparable to prior lab draws. Her proBNP however is markedly elevated from her baseline. Urinalysis and urine drug screen were really unremarkable. Head CT showed no acute findings. Chest x-ray showed diffuse lung disease which could reflect multifocal pneumonia versus pulmonary edema. Given her elevated proBNP and swelling in the extremities, she was started on diuretics and she is being admitted in this setting. With further questioning she does endorse mild orthopnea and increasing swelling in her feet. He has no current complaint and she denies fever, chills, sweats, sinus congestion, sore throat, cough, chest pain, nausea, vomiting, diarrhea, and dysuria. 08/27/2022 interval history: Patient is a poor historian and unable to provider detail ROS, patient remains confused patient was sent with AMS most likely due to polypharmacy as patient is on depakot, Tegretol, clinidine, gabapentin, haldol, and zypreza, unable to wean patient of these medications as high risk of withdrawal,
--- NOTE | 2022-08-27 16:56 | PCRCNOTE ---
Window of time for administration has passed. See next scheduled administration.
--- NOTE | 2022-08-27 17:50 | PC.NURSE ---
Sample Paster called pharmacy because Pyxis will not allow RN to pull scheduled 1700 Lasix. medical laboratory technicians spoke with pharmacist and will tube up medication to floor.
[2022-08-27] MEDS: ATORVASTATIN 20 MG TABLET PO (20:19)
[2022-08-27] MEDS: traZODone HCL 50 MG TABLET PO (20:19)
[2022-08-27] MEDS: DIVALPROEX SODIUM ER 250 MG TAB.24H 750 MG PO (20:19)
[2022-08-28] VITALS (8 sets, daily range): BP systolic 177–178; BP diastolic 88–89; PULSE 60–71; RESP 17–18; TEMP 36.1; O2SAT 98–100
[2022-08-28] MEDS: DOXYCYCLINE HYCLATE 100 MG TABLET PO (05:43)
[2022-08-28] MEDS: hydrALAZINE HCL 50 MG TABLET 100 MG PO (05:43)
[2022-08-28 05:46] LABS: Hematocrit 36.2 % (37.0-47.0); Hemoglobin 11.4 g/dL (12.0-15.0); Mean Corpuscular HGB Conc 31.5 g/dl (32-36); Mean Corpuscular Hemoglobin 32.9 pg (26-34); Mean Corpuscular Volume 104.6 fl (80-100); Mean Platelet Volume 9.9 fl (7.4-10.4); Platelet Count Result 197 k/mm3 (150-375); Red Blood Count 3.46 M/mm3 (4.2-5.4); Red Cell Distribution Width 13.6 % (11.5-14.5); White Blood Count 2.3 K/mm3 (4.5-10.0)
[2022-08-28 06:02] LABS: Blood Urea Nitrogen 15 mg/dL (7-17); Calcium 8.1 mg/dL (8.4-10.2); Carbon Dioxide > 40 mmol/L (22-30); Chloride 87 mmol/L (98-107); Estimated CRCL calculation 63 ml/min; Estimated Glomerular Filt Rate > 60; Glucose 88 mg/dL (65-110); Magnesium 1.8 mg/dL (1.6-2.3); Potassium 3.4 mmol/L (3.4-5.0); Sodium 134 mmol/L (137-145)
[2022-08-28] MEDS: IPRATROPIUM BR 0.02% INH SOLN 0.5 MG/2.5 ML VIAL INHALATION (07:32)
[2022-08-28] MEDS: ALBUTEROL SULFATE NEB 2.5 MG/3 ML INH INHALATION (07:32)
[2022-08-28] MEDS: FLUTICASONE PROP 110 MCG INHALER 12 GM (*SP) 1 PUFF INHALATION (07:34)
[2022-08-28] MEDS: polyethylene glycoL 3350 17 GM POWD.PACK PO (09:31)
[2022-08-28] MEDS: POTASSIUM CHLORIDE 20 MEQ PACKET (FOR LIQUID) 40 MEQ PO (09:32)
[2022-08-28] MEDS: ASPIRIN 81 MG ENTERIC TABLET PO (09:33)
[2022-08-28] MEDS: BENZTROPINE MESYLATE 0.5 MG TABLET PO (09:33)
[2022-08-28] MEDS: ARIPiprazole 10 MG TABLET 30 MG PO (09:33)
[2022-08-28] MEDS: BETAMETHASONE/CLOTRIMAZOLE CR 15 GM TUBE 1 APPLIC TOPICAL (09:33)
[2022-08-28] MEDS: carBAMazepine 200 MG TABLET PO (09:34)
[2022-08-28] MEDS: DIVALPROEX SODIUM ER 500 MG TAB.24H PO (09:34)
[2022-08-28] MEDS: carvediloL 3.125 MG TABLET PO (09:34)
[2022-08-28] MEDS: cloNIDine HCL 0.1 MG TABLET 0.3 MG PO (09:34)
[2022-08-28] MEDS: FERROUS SULFATE 325 MG TABLET DR PO (09:35)
[2022-08-28] MEDS: DOCUSATE SODIUM 100 MG CAPSULE PO (09:35)
[2022-08-28] MEDS: FAMOTIDINE 20 MG TABLET PO (09:35)
[2022-08-28] MEDS: GABAPENTIN 400 MG CAPSULE PO (09:35)
[2022-08-28] MEDS: FUROSEMIDE INJ 40 MG/4 ML VIAL IV PUSH (09:35)
[2022-08-28] MEDS: ENOXAPARIN 40 MG/0.4 ML SYRINGE SUB-Q (09:35)
[2022-08-28] MEDS: MAGNESIUM OXIDE 400 MG TABLET PO (09:36)
[2022-08-28] MEDS: HALOPERIDOL 5 MG TABLET PO (09:36)
[2022-08-28] MEDS: guaiFENesin 12 HR 600 MG TABCR PO (09:36)
[2022-08-28] MEDS: OLANZapine 5 MG TABLET 10 MG PO (09:36)
[2022-08-28] MEDS: NIFEdipine 30 MG TAB.ER.24 60 MG PO (09:36)
[2022-08-28] MEDS: SERTRALINE HCL 50 MG TABLET PO (09:36)
[2022-08-28] MEDS: POTASSIUM CHLORIDE 20 MEQ ER TABLET PO (09:36)
[2022-08-28] MEDS: SERTRALINE HCL 25 MG TABLET PO (09:36)
--- NOTE | 2022-08-28 10:25 | P.CDI_ITS ---
CDI Query Clarification Request Documented history of CHF. CHF noted on the assessment and plan. Patient receiving Lasix. Patient presented with complaints of shortness of breath,orthopnea and increased LE edema. Elevated BNP on 08/25/22 lab work. Pulmonary edema noted on the 08/25/22 chest xray. Please specify type and acuity of heart failure if known. * Acute * Chronic * Acute on Chronic * Unknown * Systolic * Diastolic * Combined Systolic and Diastolic * Unknown <Elida Dao RN - Last Filed: 08/28/22 10:32> Provider Comments most likely acute on chronic diastolic congestive heart failure <Shaneka Merida MD - Last Filed: 09/25/22 07:15>
--- NOTE | 2022-08-28 10:55 | PM.DS ---
DS: Admitting Diagnosis Discharge Date 08/28/2022 Admitting Diagnosis Altered mental status. DS: Discharge Diagnosis Discharge Diagnosis (1) Altered mental status: Qualifiers: Altered mental status type: unspecified Qualified Code(s): R41.82 - Altered mental status, unspecified Code(s): R41.82 - Altered mental status, unspecified Status: Acute Assessment and Plan: 08/27/2022 interval history: Patient is a poor historian and unable to provider detail ROS, patient remains confused patient was sent with AMS most likely due to polypharmacy as patient is on depakot, Tegretol, clinidine, gabapentin, haldol, and zypreza, unable to wean patient of these medications as high risk of withdrawal, and also found to have shortness of breath 2/2 congestive heart failure, patient is being diurese, will monitor, patient c/o right knee pain, not sure about injury, its appear swollen, x-ray showed severed OA, will consult orthopedic for further recommendation to follow and have PT/OT evaluate the patient. (2) CHF (congestive heart failure): Qualifiers: Heart failure chronicity: acute Heart failure type: unspecified Qualified Code(s): I50.9 - Heart failure, unspecified Code(s): I50.9 - Heart failure, unspecified Status: Acute Assessment and Plan: patient with shortness of breath suspect secondary to congestive heart failure patient is being diuresed etiology uncertain will follow-up on cardiac echo (3) Seizure disorder: Code(s): G40.909 - Epilepsy, unspecified, not intractable, without status epilepticus Status: Chronic Assessment and Plan: patient with history of seizures discharge on Depakote and Tegretol, will clinically monitor DS: Summary Hospital Course Reason for hospitalization: Altered mental status. Narrative: This is a 71-year-old female with chronic respiratory failure on oxygen, obstructive sleep apnea on BiPAP, obesity hypoventilation syndrome, coronary artery disease, diastolic congestive heart failure, hypertension, diet-controlled diabetes, seizures, schizophrenia, and depression who presented to the emergency department via EMS from [facility] for evaluation of altered mental status. Patient provides the following history however some of the following is supplemented via a review of her EMR as she does not really remember what happened today. She is well known to myself and the hospitalist service and she seems to be at her baseline. Staff at her nursing facility found her sitting in her wheelchair with her head tilted forward and she was reportedly difficult to arouse. She was hypoxic with an SpO2 of 83% on 2 L and with repositioning and increasing her oxygen she quickly improved. The patient does not really remember the event is wondering if she may have had a seizure and in fact she thinks he may have had a seizure yesterday. She was afebrile on arrival to the emergency department with stable vital signs and blood pressures in the 160s systolic. CMP and CBC are comparable to prior lab draws. Her proBNP however is markedly elevated from her baseline. Urinalysis and urine drug screen were really unremarkable. Head CT showed no acute findings. Chest x-ray showed diffuse lung disease which could reflect multifocal pneumonia versus pulmonary edema. Given her elevated proBNP and swelling in the extremities, she was started on diuretics and she is being admitted in this setting. With further questioning she does endorse mild orthopnea and increasing swelling in her feet. He has no current complaint and she denies fever, chills, sweats, sinus congestion, sore throat, cough, chest pain, nausea, vomiting, diarrhea, and dysuria. Hospital Course: Patient is a poor historian and unable to provider detail ROS, patient remains confused patient was sent with AMS most likely due to polypharmacy as patient is on depakot, Tegretol, clinidine, gabapentin, haldol,
[2022-08-28 12:32] LABS: SARS-CoV-2 RNA PCR Negative (Negative)
[2022-08-29 19:04] LABS: Carbamazepine Tegretol 4.3 mcg/mL (4.0-12.0)
--- NOTE | 2022-09-25 13:29 | PM.CNOR ---
History of Present Illness HPI Consult date: 09/25/22 Chief complaint: New Onset CHF Narrative: I HAVE REVIEWED THE CHART AND ALL PROVIDER NOTES. THERE ARE NO ORTHOPEDIC PROBLEMS THAT I HAVE FOUND DOCUMENTED. THE PATIENT WAS DISCHARGED PRIOR TO BEING SEEN FOR ORTHOPEDIC CONSULT. FOR[facility]LY [facility] Past Medical History Medical History (Updated 09/03/22 @ 14:25 by Catina Roblero PA-C) Asthma-COPD overlap syndrome Cerebrovascular accident Chronic respiratory failure with hypoxia and hypercapnia Deep venous thrombosis Depression Diastolic congestive heart failure EF 60 to 65% in August 2021. Gastroesophageal reflux disease Hypertension Migraine headache Obesity hypoventilation syndrome Obstructive sleep apnea treated with BiPAP Pulmonary hypertension Severe on echo in August 2021 with an estimated PASP of 63 mmHg. Schizophrenia Seizure disorder Type 2 diabetes mellitus Diet-controlled with a recent A1c of 5.2%. Surgical History Surgical History (Updated 08/25/22 @ 13:50 by Chel York PA-C) History of arthroscopy of right knee History of cardiac catheterization History of section, classical History of cholecystectomy History of left hip replacement History of sinus surgery Family History Family History Mother Heart disease Cancer Cerebrovascular accident Sibling Pacemaker Social History Social History (Updated 08/25/22 @ 13:47 by Chel York PA-C) Social History: Surrogate medical decision maker: Carri Juan Carlos. Code status: Full code. Smoking packs per day: 1 Smoking cigarettes per day: 20.0 Years smoked: 21 Smoking pack-years: 21.00 Smoking status: Former smoker Tobacco type: cigarettes Second hand tobacco smoke exposure: Yes Alcohol intake: never Substance use: never Substance use type: does not use Lack of Transportation: No Lack of Food: Never True Current Housing: I Have Housing Concerned About Future Housing: No Difficulty Paying Gas/Electric Bills: No Difficulty Paying for Meds: No Currently Unemployed: No Education: High School Diploma/GED Difficulty w/ Childcare or Family Care: No Living arrangements: alf Additional living arrangements comments: Resident at [facility]. Likes to color and do crafts. Has 4 children. Occupation/Education: retired Additional occupation/education comments: Disabled. Spiritual care concerns: No Agree to blood products: Yes Meds Home Medications and Allergies Home Medications Medication Instructions Recorded Confirmed Type benztropine 0.5 mg tablet 0.5 mg PO Q12H 01/24/20 08/31/22 History carbamazepine 200 mg tablet 200 mg PO Q12H 01/24/20 08/31/22 History hydralazine 100 mg tablet 100 mg PO TID 01/24/20 08/31/22 History haloperidol 5 mg tablet 5 mg PO Q12H 01/25/20 08/31/22 History sertraline 25 mg tablet 25 mg PO DAILY 01/25/20 08/31/22 History sertraline 50 mg tablet 50 mg PO DAILY 01/25/20 08/31/22 History trazodone 50 mg tablet 50 mg PO HS 01/25/20 08/31/22 History albuterol sulfate 90 mcg/actuation 2 puff inhalation Q6HRT PRN 01/26/20 08/31/22 Rx aerosol inhaler (Proventil HFA) Shortness Of Breath #6.7 grams carvedilol 3.125 mg tablet 3.125 mg PO Q12H 05/22/21 08/31/22 History Artificial Tears 1 drp EACH EYE Q6H PRN Dry Eye(S) 09/10/21 08/31/22 History atorvastatin 20 mg tablet 20 mg PO HS 09/10/21 08/31/22 History clonidine HCl 0.3 mg tablet 0.3 mg PO Q12H 09/10/21 08/31/22 History olanzapine 10 mg tablet 10 mg PO Q12H 09/10/21 08/31/22 History gabapentin 400 mg capsule 400 mg PO TID 04/29/22 08/31/22 History polyvinyl alcohol 1.4 % eye drops 1 drp EACH EYE Q6H PRN Dry Eye(S) 04/29/22 08/31/22 History ipratropium 0.5 mg-albuterol 3 mg 3 ml inhalation QID #180 mL 06/25/22 08/31/22 Rx (2.5 mg base)/3 mL nebulization soln fluticasone propionate 110 1 puff inhalation BID 08/09/22 08/31/22 History mcg/actua
== END 2022-08-28 13:43 | DRG 194 ==
LOC: ANHED 12:49 → ANH3MED 13:23
PROVIDERS: Physician Assistant; Admitting Provider Hospitalist; Emergency Provider Preventive Medicine Aerospace Medicine; Visit Provider Family Medicine
DX: I11.0 Hypertensive heart disease with heart failure (principal); I50.33 Acute on chronic diastolic (congestive) heart failure; J96.11 Chronic respiratory failure with hypoxia; Z99.81 Dependence on supplemental oxygen; E66.2 Morbid (severe) obesity with alveolar hypoventilation; F20.9 Schizophrenia, unspecified; E11.9 Type 2 diabetes mellitus without complications; D64.9 Anemia, unspecified; F32.A Depression, unspecified; R41.82 Altered mental status, unspecified; T42.1X5A Adverse effect of iminostilbenes, initial encounter; T42.6X5A Adverse effect of other antiepileptic and sedative-hypnotic drugs, initial encounter; T43.4X5A Adverse effect of butyrophenone and thiothixene neuroleptics, initial encounter; T43.595A Adverse effect of other antipsychotics and neuroleptics, initial encounter; J96.12 Chronic respiratory failure with hypercapnia; G40.909 Epilepsy, unspecified, not intractable, without status epilepticus; K21.9 Gastro-esophageal reflux disease without esophagitis; I25.10 Atherosclerotic heart disease of native coronary artery without angina pectoris; Z96.642 Presence of left artificial hip joint; Z68.37 Body mass index [BMI] 37.0-37.9, adult; Z86.73 Personal history of transient ischemic attack (TIA), and cerebral infarction without residual deficits; Z86.718 Personal history of other venous thrombosis and embolism; Z90.49 Acquired absence of other specified parts of digestive tract
CPT/HCPCS: 36415; 70450; 71045; 73560; 80048; 80053; 80156; 80164; 80307; 81001; 82803; 83735; 83880; 84443; 84484; 85025; 85027; 87635; 93005; 93306; 94640; 96374; 99285; A9270; G0378; G0379; J1650; J1940; J3475

== ENCOUNTER 2022-08-31 10:39 | Inpatient (IN) | payer OTHER, SELFPAY ==
[2022-08-31] VITALS (14 sets, daily range): BP systolic 124–175; BP diastolic 69–92; PULSE 51–72; RESP 15–20; TEMP 36.2–36.6; O2SAT 93–100; BMI 36.7
--- NOTE | ~2022-08-31 | XR_ITS ---
Portable chest x-ray Comparison: 08/31/2022 Clinical History: CHF Findings: Possible minimal central congestive change. Lungs are otherwise clear. No consolidation or pleural effusion. Cardiomediastinal silhouette is stable. Bones and soft tissues are unremarkable. Impression: Possible minimal central congestive changes. Reviewed, dictated and finalized at location . Impression: Possible minimal central congestive changes.
--- NOTE | ~2022-08-31 | XR_ITS ---
XR chest 1V portable DATE: 08/31/2022 11:20 INDICATION: Shortness of breath TECHNIQUE: Portable AP chest on 08/31/2022 at 1118 hours COMPARISON: 08/25/2022 portable AP chest at 1117 hours FINDINGS: Cardiomegaly. There is pulmonary vascular congestion. Small pleural effusions are suggested by mild blunting of the costophrenic angles. There are mild bibasilar infiltrates and/atelectasis. IMPRESSION: Cardiomegaly, pulmonary vascular congestion Bibasilar infiltrate or atelectasis Reviewed, dictated and finalized at location A.
--- NOTE | ~2022-08-31 | CT_ITS ---
EXAMINATION: CT brain wo con DATE: 08/31/2022 13:22 INDICATION: Altered mental state TECHNIQUE: Computed tomography (CT) of the head was performed without intravenous contrast. The mA wa s adjusted according to patient size. Iterative reconstruction technique was employed. Exam dose: 75 6.67 mGy-cm total exam DLP. COMPARISON: 08/25/2022 CT brain FINDINGS: Bilateral vertebral artery, basilar artery and bilateral carotid siphon internal carotid ar darshan calcifications. There is nonspecific diminished attenuation of the cerebral white matter, likely due to chronic small vessel ischemic changes. No intracranial mass lesion or hemorrhage or cerebrovascular accident is detected. No midline shift o r mass effect. No subdural or epidural hematoma. Slight posterior left maxillary sinus mucosal thickening and focal opacified anterior right ethmoid a ir cell. The included paranasal sinuses are otherwise unremarkable. There is some right mastoid effusions. The left mastoid air cells are unremarkable. No fracture or bone destruction of the cranial vault. IMPRESSION: Cerebral atherosclerosis and chronic small vessel ischemic changes of cerebral white mat ter No acute intracranial finding Reviewed, dictated and finalized at Location A. Reviewed, dictated and finalized at location A. IMPRESSION: Cerebral atherosclerosis and chronic small vessel ischemic changes of cerebral white matter No acute intracranial finding
--- NOTE | 2022-08-31 10:43 | ECG_ITS ---
Measurements Intervals [place] Rate: 61 P: 15 MA: 192 QRS: 16 QRSD: 88 T: 260 QT: 452 QTc: 459 Interpretive Statements SINUS RHYTHM ST-T WAVE ABNORMALITY IN DIFFUSE LEADS- CONSIDER ISCHEMIA PROLONGED QT INTERVAL BASELINE WANDER- II, III, AVR, AVL, AVF, V4-V5 ABNORMAL ECG COMPARED TO ECG 08/25/2022 10:13:42 ST-T WAVE ABNORMALITY NOW PRESENT Electronically Signed On 08-31-2022 16:21:56 CDT by Willy Crawford D.O.
[2022-08-31 11:03] LABS: Basophils Percent Auto 1.1 % (0.2-1.2); Eosinophils Absolute Auto 0.1 K/mm3 (0-0.3); Hematocrit 38.9 % (37.0-47.0); Hemoglobin 12.2 g/dL (12.0-15.0); Immature Granulocyte Absolute 0.01 K/mm3 (0.00-0.031); Immature Granulocyte Percent A 0.3 % (0-0.5); Lymphocytes Absolute Auto 1.36 K/mm3 (0.9-3.2); Lymphocytes Percent Auto 38.1 % (18.3-44.2); Mean Corpuscular HGB Conc 31.4 g/dl (32-36); Mean Corpuscular Hemoglobin 32.8 pg (26-34); Mean Corpuscular Volume 104.6 fl (80-100); Monocytes Absolute Auto 0.5 K/mm3 (0.1-0.6); Monocytes Percent Auto 13.2 % (2.6-8.5); Neutrophils Absolute Auto 1.6 K/mm3 (1.3-6.7); Neutrophils Percent Auto 45.3 % (45.5-73.1); Platelet Count Result 194 k/mm3 (150-375); Red Blood Count 3.72 M/mm3 (4.2-5.4); White Blood Count 3.6 K/mm3 (4.5-10.0)
[2022-08-31 11:09] LABS: Alveolar/Arterial O2 Gradient < 0.0 mmHg; Base Excess ABG 13.7 mEq/l (+/-2.0); Fractional Inspired Oxygen 28 %; HCO3 ABG 39.3 mEq/l (22.0-26.0); Oxygen Content ABG 17.9 %vol (16.0-22.0); Oxygen Saturation ABG 98.8 % (95.0-100.0); Oxyhemoglobin 96.8 % THb (90.0-100.0); PCO2 ABG 53.8 mmHg (35.0-45.0); PO2 ABG 136.8 mmHg (80.0-100.0); PO2 FiO2 Ratio Arterial Blood 4.89 %; pH ABG 7.482 (7.350-7.450)
[2022-08-31 11:10] LABS: Device NASAL CANNULA; Modified Allen's Test Pass; Site Drawn RIGHT RADIAL
[2022-08-31 11:15] LABS: INR 1.1; Prothrombin Time 14.7 Seconds (11.1-14.7)
[2022-08-31 11:16] LABS: Partial Thromboplastin Time 27.3 SECONDS (22.3-36.8)
[2022-08-31 11:24] LABS: Alanine Aminotransferase 13 U/L (6-35); Albumin Level 3.8 g/dL (3.5-5.1); Alkaline Phosphatase 53 U/L (38-126); Aspartate Amino Transferase 21 U/L (14-36); Bilirubin,Total 0.4 mg/dL (0.2-1.3); Blood Urea Nitrogen 29 mg/dL (7-17); Calcium 8.6 mg/dL (8.4-10.2); Carbon Dioxide > 40 mmol/L (22-30); Chloride 89 mmol/L (98-107); Estimated CRCL calculation 33 ml/min; Estimated Glomerular Filt Rate 45; Glucose 113 mg/dL (65-110); Potassium 3.5 mmol/L (3.4-5.0); Sodium 136 mmol/L (137-145)
[2022-08-31 11:57] LABS: NT Pro B Type Natriuretic Pept 4900 pg/mL (19.9-100)
--- NOTE | 2022-08-31 13:03 | ED.GENADULT ---
HPI - General Adult General Chief complaint: Altered Mental Status Stated complaint: AMS, SOB, HYPOTENSIVE Time Seen by Provider: 08/31/22 10:39 History of Present Illness HPI narrative: Patient is a 8-year-old female who presents ER with new alteration mental status. Is noticed that she is poorly responsive at her detention. Patient has history of hypercapnia as well as CHF. Patient was recently hospitalized. Patient awakens and tries to speak to sternal rub but otherwise can provide no history. EMS report stated patient was hypotensive but there is no such hypotension at this time. Related Data Home Medications Medication Instructions Recorded Confirmed benztropine 0.5 mg tablet 0.5 mg PO Q12H 01/24/20 08/31/22 carbamazepine 200 mg tablet 200 mg PO Q12H 01/24/20 08/31/22 hydralazine 100 mg tablet 100 mg PO TID 01/24/20 08/31/22 haloperidol 5 mg tablet 5 mg PO Q12H 01/25/20 08/31/22 sertraline 25 mg tablet 25 mg PO DAILY 01/25/20 08/31/22 sertraline 50 mg tablet 50 mg PO DAILY 01/25/20 08/31/22 trazodone 50 mg tablet 50 mg PO HS 01/25/20 08/31/22 carvedilol 3.125 mg tablet 3.125 mg PO Q12H 05/22/21 08/31/22 Artificial Tears 1 drp EACH EYE Q6H PRN Dry Eye(S) 09/10/21 08/31/22 atorvastatin 20 mg tablet 20 mg PO HS 09/10/21 08/31/22 clonidine HCl 0.3 mg tablet 0.3 mg PO Q12H 09/10/21 08/31/22 olanzapine 10 mg tablet 10 mg PO Q12H 09/10/21 08/31/22 gabapentin 400 mg capsule 400 mg PO TID 04/29/22 08/31/22 polyvinyl alcohol 1.4 % eye drops 1 drp EACH EYE Q6H PRN Dry Eye(S) 04/29/22 08/31/22 fluticasone propionate 110 1 puff inhalation BID 08/09/22 08/31/22 mcg/actuation HFA aerosol inhaler (Flovent HFA) nifedipine 60 mg tablet,extended 60 mg PO DAILY 08/09/22 08/31/22 release 24 hr (Procardia XL) nystatin-triamcinolone topical 1 applic topical Q12H 08/09/22 08/31/22 cream polyethylene glycol 3350 17 gram 17 g PO DAILY 08/09/22 08/31/22 oral powder packet divalproex 250 mg tablet,extended 750 mg PO HS 08/10/22 08/31/22 release 24 hr divalproex 500 mg tablet,extended 500 mg PO DAILY 08/10/22 08/31/22 release 24 hr aripiprazole 30 mg tablet 30 mg PO DAILY 08/25/22 08/31/22 aspirin 81 mg tablet 81 mg PO DAILY 08/25/22 08/31/22 docusate sodium 100 mg capsule 100 mg PO DAILY 08/25/22 08/31/22 ergocalciferol (vitamin D2) 1,250 1,250 mcg PO MONTHLY 08/25/22 08/31/22 mcg (50,000 unit) capsule famotidine 20 mg tablet 20 mg PO DAILY 08/25/22 08/31/22 ferrous sulfate 325 mg (65 mg 325 mg PO DAILY 08/25/22 08/31/22 iron) tablet doxycycline hyclate 100 mg tablet 100 mg PO Q12H 08/31/22 08/31/22 Allergies Allergy/AdvReac Type Severity Reaction Status Date / Time Penicillins Allergy Unknown Hives / Verified 08/31/22 10:46 Red Face Review of Systems Review of Systems: ROS unobtainable: Yes unobtainable due to mental status PMFSH Past Medical History Medical History (Updated 08/31/22 @ 18:49 by Luis Manuel Alberts MD) Asthma-COPD overlap syndrome Cerebrovascular accident Chronic respiratory failure with hypoxia and hypercapnia Deep venous thrombosis Depression Diastolic congestive heart failure EF 60 to 65% in August 2021. Gastroesophageal reflux disease Hypertension Migraine headache Obesity hypoventilation syndrome Obstructive sleep apnea treated with BiPAP Pulmonary hypertension Severe on echo in August 2021 with an estimated PASP of 63 mmHg. Schizophrenia Seizure disorder Type 2 diabetes mellitus Diet-controlled with a recent A1c of 5.2%. Surgical History Surgical History (Updated 08/25/22 @ 13:50 by Chel York PA-C) History of arthroscopy of right knee History of cardiac catheterization History of section, classical History of cholecystectomy History of left hip replacement History of sinus surgery Family History Family History Mother Heart disease Cancer Cerebrovascular accident Sibling Pacemaker Soci
--- NOTE | 2022-08-31 13:14 | PM.IMHP ---
H&P: HPI History of Present Illness Date/Time: 08/31/22 13:15 Chief Complaint: Altered mental status. Narrative: This is a 71-year-old female with chronic respiratory failure on oxygen, obstructive sleep apnea on BiPAP, obesity hypoventilation syndrome, coronary artery disease, diastolic congestive heart failure, hypertension, diet-controlled diabetes, seizures, schizophrenia, and depression who presented to the emergency department via EMS from [facility] for evaluation of altered mental status. The patient provides the following history. According to EMS, the patient was found slumped over in her chair without her oxygen. On EMS arrival she was alert to person only with slurred speech and appeared drowsy and less responsive than usual. She was placed on 4 L and she eventually came around and was more responsive. Vital signs have been stable since arrival. Labs were significant for an elevated BUN and creatinine from baseline (she was just discharged from the hospital couple of days ago after being treated for CHF exacerbation). She is being admitted in this setting for further treatment and evaluation. The patient is well known to myself and at the time my evaluation she is alert and oriented and at her baseline. Her only complaint is that she is hungry and she is specifically requesting a banana. She reports having a cough earlier this morning though that is not necessarily unusual for her. She denies fever, chills, sweats, headache, chest pain, shortness a breath, nausea, vomiting, diarrhea, dysuria, and concerns for seizure today. Review of Systems Review of Systems: Twelve systems were reviewed and are negative except for as per HPI. [facility] Past Medical History Medical History (Updated 09/01/22 @ 00:23 by Chel York PA-C) Asthma-COPD overlap syndrome Cerebrovascular accident Chronic respiratory failure with hypoxia and hypercapnia Deep venous thrombosis Depression Diastolic congestive heart failure EF 60 to 65% in August 2021. Gastroesophageal reflux disease Hypertension Migraine headache Obesity hypoventilation syndrome Obstructive sleep apnea treated with BiPAP Pulmonary hypertension Severe on echo in August 2021 with an estimated PASP of 63 mmHg. Schizophrenia Seizure disorder Type 2 diabetes mellitus Diet-controlled with a recent A1c of 5.2%. Surgical History Surgical History (Updated 08/25/22 @ 13:50 by Chel York PA-C) History of arthroscopy of right knee History of cardiac catheterization History of section, classical History of cholecystectomy History of left hip replacement History of sinus surgery Family History Family History Mother Heart disease Cancer Cerebrovascular accident Sibling Pacemaker Social History Social History (Updated 08/25/22 @ 13:47 by Chel York PA-C) Social History: Surrogate medical decision maker: Carri Rangel. Code status: Full code. Smoking packs per day: 1 Smoking cigarettes per day: 20.0 Years smoked: 21 Smoking pack-years: 21.00 Smoking status: Former smoker Tobacco type: cigarettes Second hand tobacco smoke exposure: Yes Alcohol intake: never Substance use: never Substance use type: does not use Lack of Transportation: No Lack of Food: Never True Current Housing: I Have Housing Concerned About Future Housing: No Difficulty Paying Gas/Electric Bills: No Difficulty Paying for Meds: No Currently Unemployed: No Education: High School Diploma/GED Difficulty w/ Childcare or Family Care: No Living arrangements: jail Additional living arrangements comments: Resident at [facility]. Likes to color and do crafts. Has 4 children. Occupation/Education: retired Additional occupation/education comments: Disabled. Spiritual care concerns: No Agree to blood products: Yes Meds Home Medica
--- NOTE | 2022-08-31 15:01 | PC.NURSE ---
Called Britney at [facility] and gave report on pt - informed pt has a room and will be admitted. [phone]
--- NOTE | 2022-08-31 16:04 | ADMGEN ---
This patient, Yenny Hernandez, was admitted to IMU Room 232-01. Patient/family oriented to hospital policies and general routines including ID bracelet, bed and alarms, visiting hours, pain management, procedures, bathroom and other care routines, personal items, smoking policy, room service/diet, and visiting hours. Information on how to activate the Rapid Response Team has been discussed. Patient/Family are encouraged to report perceived risks to care and to ask questions if they do not understand what they are told or what they should do.
[2022-08-31 16:44] LABS: Glucose Point of Care 85 mg/dl (65-105)
[2022-08-31] MEDS: ACETAMINOPHEN 325 MG TABLET 650 MG PO (17:19)
[2022-08-31] MEDS: SODIUM CHLORIDE 0.9% IV 1,000 ML 80 ML IV CONT (17:19)
[2022-08-31 20:33] LABS: Glucose Point of Care 108 mg/dl (65-105)
[2022-09-01] VITALS (25 sets, daily range): BP systolic 121–170; BP diastolic 69–117; PULSE 57–78; RESP 11–20; TEMP 35.9–36.4; O2SAT 97–100
[2022-09-01 04:54] LABS: Hematocrit 42.2 % (37.0-47.0); Hemoglobin 13.4 g/dL (12.0-15.0); Mean Corpuscular HGB Conc 31.8 g/dl (32-36); Mean Corpuscular Hemoglobin 33.5 pg (26-34); Mean Corpuscular Volume 105.5 fl (80-100); Platelet Count Result 193 k/mm3 (150-375); Red Cell Distribution Width 13.5 % (11.5-14.5); White Blood Count 2.8 K/mm3 (4.5-10.0)
[2022-09-01 05:26] LABS: Blood Urea Nitrogen 28 mg/dL (7-17); Calcium 8.7 mg/dL (8.4-10.2); Carbon Dioxide > 40 mmol/L (22-30); Chloride 88 mmol/L (98-107); Estimated CRCL calculation 44 ml/min; Estimated Glomerular Filt Rate > 60; Glucose 93 mg/dL (65-110); Potassium 3.8 mmol/L (3.4-5.0); Sodium 139 mmol/L (137-145)
[2022-09-01 05:50] LABS: Alveolar/Arterial O2 Gradient 40.4 mmHg; Base Excess ABG 10.7 mEq/l (+/-2.0); Fractional Inspired Oxygen 32 %; HCO3 ABG 40.2 mEq/l (22.0-26.0); Methemoglobin ABG 0.4 %THb (0-1.5); Oxygen Content ABG 19.2 %vol (16.0-22.0); Oxygen Saturation ABG 96.5 % (95.0-100.0); Oxyhemoglobin 94.9 % THb (90.0-100.0); PO2 ABG 95.9 mmHg (80.0-100.0); Reduced Hemoglobin 3.7 %THb (0-5.0); Total Hemoglobin 14.3 g/dL (12.0-18.0); pH ABG 7.327 (7.350-7.450)
[2022-09-01 05:51] LABS: Modified Allen's Test Pass; PCO2 ABG 78.5 mmHg (35.0-45.0); Site Drawn RIGHT RADIAL
[2022-09-01 05:52] LABS: Device NASAL CANNULA
[2022-09-01] MEDS: TRIAMCINOLONE ACET 0.1% CREAM 15 GM TUBE 1 APPLIC TOPICAL ×2 (08:46→20:18)
[2022-09-01] MEDS: NIFEdipine 30 MG TAB.ER.24 60 MG PO (08:46)
[2022-09-01] MEDS: ARIPiprazole 10 MG TABLET 30 MG PO (08:46)
[2022-09-01] MEDS: DIVALPROEX SODIUM ER 500 MG TAB.24H PO (08:46)
[2022-09-01] MEDS: OLANZapine 5 MG TABLET 10 MG PO ×2 (08:46→20:17)
[2022-09-01] MEDS: GABAPENTIN 400 MG CAPSULE PO ×3 (08:46→18:16)
[2022-09-01] MEDS: BENZTROPINE MESYLATE 0.5 MG TABLET PO ×2 (08:46→20:19)
[2022-09-01] MEDS: ASPIRIN 81 MG CHEWABLE TABLET PO (08:47)
[2022-09-01] MEDS: carBAMazepine 200 MG TABLET PO ×2 (08:47→20:17)
[2022-09-01] MEDS: FERROUS SULFATE 325 MG TABLET DR BY MOUTH (08:47)
[2022-09-01] MEDS: SERTRALINE HCL 25 MG TABLET 75 MG PO (08:47)
[2022-09-01] MEDS: DOCUSATE SODIUM 100 MG CAPSULE PO (08:47)
[2022-09-01] MEDS: POTASSIUM CHLORIDE 20 MEQ PACKET (FOR LIQUID) PO (08:47)
[2022-09-01] MEDS: guaiFENesin 12 HR 600 MG TABCR PO ×2 (08:47→20:17)
[2022-09-01] MEDS: MAGNESIUM OXIDE 400 MG TABLET PO (08:47)
[2022-09-01] MEDS: polyethylene glycoL 3350 17 GM POWD.PACK PO (08:47)
[2022-09-01] MEDS: HALOPERIDOL 5 MG TABLET PO ×2 (08:47→20:17)
[2022-09-01] MEDS: cloNIDine HCL 0.1 MG TABLET 0.3 MG PO ×2 (08:47→20:17)
[2022-09-01] MEDS: hydrALAZINE HCL 50 MG TABLET 100 MG PO ×3 (08:47→18:16)
[2022-09-01] MEDS: carvediloL 3.125 MG TABLET PO ×2 (08:47→20:17)
[2022-09-01] MEDS: FAMOTIDINE 20 MG TABLET PO (08:47)
[2022-09-01] MEDS: MICONAZOLE NITRATE 2% CREAM 30 GM TUBE 1 APPLIC TOPICAL ×2 (08:48→20:18)
[2022-09-01] MEDS: FLUTICASONE PROP 110 MCG INHALER 12 GM (*SP) 1 PUFF INHALATION ×2 (08:49→20:45)
[2022-09-01] MEDS: IPRATROPIUM BR 0.02% INH SOLN 0.5 MG/2.5 ML VIAL INHALATION ×3 (10:53→20:41)
[2022-09-01] MEDS: ALBUTEROL SULFATE NEB 2.5 MG/3 ML INH INHALATION ×3 (10:53→20:41)
--- NOTE | 2022-09-01 14:58 | PM.IMPN ---
Progress Note: A&P Assessment and Plan (1) Altered mental status: Qualifiers: Altered mental status type: unspecified Qualified Code(s): R41.82 - Altered mental status, unspecified Code(s): R41.82 - Altered mental status, unspecified Status: Acute (2) Acute on chronic respiratory failure with hypoxia and hypercapnia: Code(s): J96.21 - Acute and chronic respiratory failure with hypoxia; J96.22 - Acute and chronic respiratory failure with hypercapnia Status: Acute (3) Acute kidney injury: Code(s): N17.9 - Acute kidney failure, unspecified Status: Acute (4) Diastolic congestive heart failure: Code(s): I50.30 - Unspecified diastolic (congestive) heart failure Status: Acute (5) Pulmonary edema: Qualifiers: Chronicity: acute Qualified Code(s): J81.0 - Acute pulmonary edema Code(s): J81.1 - Chronic pulmonary edema Status: Acute (6) Obstructive sleep apnea treated with BiPAP: Code(s): G47.33 - Obstructive sleep apnea (adult) (pediatric) Status: Acute (7) Asthma-COPD overlap syndrome: Code(s): J44.9 - Chronic obstructive pulmonary disease, unspecified Status: Acute (8) Chronic obstructive pulmonary disease: Code(s): J44.9 - Chronic obstructive pulmonary disease, unspecified Status: Acute (9) Schizophrenia: Qualifiers: Schizophrenia type: unspecified Qualified Code(s): F20.9 - Schizophrenia, unspecified Code(s): F20.9 - Schizophrenia, unspecified Status: Chronic (10) Seizure disorder: Code(s): G40.909 - Epilepsy, unspecified, not intractable, without status epilepticus Status: Acute Plan patient presented with altered mental status. Patient reports has some problem with the right lower extremity that she has wanted to get some sort of surgery on. I am not sure what she is referring to. Looks like recent admission workup reveals severe osteoarthritis on the right knee and was suggested to have a orthopedic follow-up as an outpatient for surgical evaluation. She has history of seizures and multiple different medications Depakote Tegretol clonidine gabapentin Haldol and Zyprexa some which are for her underlying schizophrenia and depression. She has a history of obstructive sleep apnea on BiPAP obesity hypoventilation syndrome coronary artery disease diastolic congestive heart failure hypertension diet-controlled diabetes seizures. She is from [facility]. She was apparently poorly responsive at the nursing facility and was found slumped over in her chair without her oxygen. She was only responsive to sternal rub in the ER. EMS reported patient to be hypotensive however blood pressure was adequate upon arrival to the ER. She was alert to person only with slurred speech and appeared drowsy and rhythm less responsive than usual. She is placed on 4 L and eventually improved and became more responsive. Workup in the ER revealed WBCs 3.6 normal hemoglobin creatinine 1.4 normal LFT BNP off 4900 ABG 7.48/53/136/39 chest x-ray with cardiomegaly and pulmonary vascular congestion bibasilar infiltrate or atelectasis. Head CT with cerebral atherosclerosis and chronic small-vessel ischemic disease of cerebral white matter with no acute intracranial finding. She has mild leukopenia noted in previous labs on and off mild VARSHA on admission with creatinine 1.4. Previous BNP level was 5760 and most recent admission. VARSHA resolved today will stop her IV fluid. Resume all her home medication. Subjective Date/time seen: 09/01/22 14:58 Interval history: patient presented with altered mental status. Patient reports has some problem with the right lower extremity that she has wanted to get some sort of surgery on. I am not sure what she is referring to. Looks like recent admission workup reveals severe osteoarthritis on the right knee and was suggested to have a orthopedic foll
--- NOTE | 2022-09-01 16:09 | PCPTNOTE ---
On 09/01/22, the student, Tiffani Worthington, provided care and completed [employer] documentation on this patient. I have reviewed the student's documentation and agree with the findings.
[2022-09-01] MEDS: DIVALPROEX SODIUM ER 250 MG TAB.24H 750 MG PO (20:16)
[2022-09-01] MEDS: ATORVASTATIN 20 MG TABLET PO (20:17)
[2022-09-01] MEDS: traZODone HCL 50 MG TABLET PO (20:17)
[2022-09-02] VITALS (23 sets, daily range): BP systolic 142–179; BP diastolic 82–102; PULSE 51–68; RESP 16–22; TEMP 35.7–37.1; O2SAT 18–100
[2022-09-02 06:51] LABS: Basophils Percent Auto 1.1 % (0.2-1.2); Eosinophils Absolute Auto 0.2 K/mm3 (0-0.3); Eosinophils Percent Auto 6.1 % (0-4.4); Hematocrit 43.5 % (37.0-47.0); Hemoglobin 13.6 g/dL (12.0-15.0); Immature Granulocyte Absolute 0.01 K/mm3 (0.00-0.031); Immature Granulocyte Percent A 0.4 % (0-0.5); Lymphocytes Absolute Auto 1.47 K/mm3 (0.9-3.2); Lymphocytes Percent Auto 52.7 % (18.3-44.2); Mean Corpuscular HGB Conc 31.3 g/dl (32-36); Mean Corpuscular Hemoglobin 32.7 pg (26-34); Mean Corpuscular Volume 104.6 fl (80-100); Mean Platelet Volume 10.3 fl (7.4-10.4); Monocytes Absolute Auto 0.4 K/mm3 (0.1-0.6); Monocytes Percent Auto 15.8 % (2.6-8.5); Neutrophils Absolute Auto 0.7 K/mm3 (1.3-6.7); Neutrophils Percent Auto 23.9 % (45.5-73.1); Platelet Count Result 174 k/mm3 (150-375); Red Blood Count 4.16 M/mm3 (4.2-5.4); Red Cell Distribution Width 13.3 % (11.5-14.5); White Blood Count 2.8 K/mm3 (4.5-10.0)
[2022-09-02] MEDS: ALBUTEROL SULFATE NEB 2.5 MG/3 ML INH INHALATION ×3 (07:02→19:20)
[2022-09-02] MEDS: IPRATROPIUM BR 0.02% INH SOLN 0.5 MG/2.5 ML VIAL INHALATION ×3 (07:02→19:20)
[2022-09-02 07:09] LABS: Alanine Aminotransferase 12 U/L (6-35); Albumin Level 3.8 g/dL (3.5-5.1); Alkaline Phosphatase 61 U/L (38-126); Aspartate Amino Transferase 19 U/L (14-36); Bilirubin,Total 0.4 mg/dL (0.2-1.3); Blood Urea Nitrogen 18 mg/dL (7-17); Calcium 8.8 mg/dL (8.4-10.2); Carbon Dioxide > 40 mmol/L (22-30); Chloride 88 mmol/L (98-107); Estimated CRCL calculation 62 ml/min; Estimated Glomerular Filt Rate > 60; Glucose 83 mg/dL (65-110); Magnesium 2.1 mg/dL (1.6-2.3); Sodium 135 mmol/L (137-145)
[2022-09-02] MEDS: FLUTICASONE PROP 110 MCG INHALER 12 GM (*SP) 1 PUFF INHALATION ×2 (07:19→19:23)
[2022-09-02 07:48] LABS: Platelet Estimate Adequate (Adequate)
[2022-09-02 07:49] LABS: Large Platelets Present; Macrocytosis 1+ (NORMAL); Schistocytes None Seen (NORMAL)
[2022-09-02] MEDS: NIFEdipine 30 MG TAB.ER.24 60 MG PO (08:29)
[2022-09-02] MEDS: ARIPiprazole 10 MG TABLET 30 MG PO (08:29)
[2022-09-02] MEDS: ACETAMINOPHEN 325 MG TABLET 650 MG PO ×2 (08:29→20:34)
[2022-09-02] MEDS: polyethylene glycoL 3350 17 GM POWD.PACK PO (08:29)
[2022-09-02] MEDS: BENZTROPINE MESYLATE 0.5 MG TABLET PO ×2 (08:30→20:34)
[2022-09-02] MEDS: DIVALPROEX SODIUM ER 500 MG TAB.24H PO (08:30)
[2022-09-02] MEDS: FAMOTIDINE 20 MG TABLET PO (08:30)
[2022-09-02] MEDS: FERROUS SULFATE 325 MG TABLET DR BY MOUTH (08:30)
[2022-09-02] MEDS: MAGNESIUM OXIDE 400 MG TABLET PO (08:30)
[2022-09-02] MEDS: cloNIDine HCL 0.1 MG TABLET 0.3 MG PO ×2 (08:30→20:34)
[2022-09-02] MEDS: FUROSEMIDE 40 MG TABLET PO (08:30)
[2022-09-02] MEDS: SERTRALINE HCL 25 MG TABLET 75 MG PO (08:30)
[2022-09-02] MEDS: DOCUSATE SODIUM 100 MG CAPSULE PO (08:30)
[2022-09-02] MEDS: carvediloL 3.125 MG TABLET PO ×2 (08:30→20:35)
[2022-09-02] MEDS: GABAPENTIN 400 MG CAPSULE PO ×3 (08:30→16:19)
[2022-09-02] MEDS: OLANZapine 5 MG TABLET 10 MG PO ×2 (08:30→20:34)
[2022-09-02] MEDS: carBAMazepine 200 MG TABLET PO ×2 (08:30→20:35)
[2022-09-02] MEDS: HALOPERIDOL 5 MG TABLET PO ×2 (08:31→20:34)
[2022-09-02] MEDS: hydrALAZINE HCL 50 MG TABLET 100 MG PO ×3 (08:31→16:19)
[2022-09-02] MEDS: TRIAMCINOLONE ACET 0.1% CREAM 15 GM TUBE 1 APPLIC TOPICAL ×2 (08:36→21:02)
[2022-09-02] MEDS: ASPIRIN 81 MG CHEWABLE TABLET PO (08:36)
[2022-09-02] MEDS: MICONAZOLE NITRATE 2% CREAM 30 GM TUBE 1 APPLIC TOPICAL ×2 (08:36→21:02)
[2022-09-02] MEDS: guaiFENesin 12 HR 600 MG TABCR PO ×2 (08:36→20:34)
--- NOTE | 2022-09-02 09:25 | PC.NURSE ---
Addendum entered by Gayathri Sanderson RN 09/02/22 09:33: This patient, Yenny Hernandez, was transferred to 255 on 09/02/22 at 0933. Personal belongings sent with patient. Appropriate documentation sent with patient. Original Note: This patient, Yenny Hernandez, was transferred to [ ] on 09/02/22 at 0933. Personal belongings sent with patient. Report given to [ ]. Appropriate documentation sent with patient.
[2022-09-02] MEDS: POTASSIUM CHLORIDE 20 MEQ PACKET (FOR LIQUID) PO (10:03)
[2022-09-02 12:10] LABS: Glucose Point of Care 104 mg/dl (65-105)
--- NOTE | 2022-09-02 14:23 | PM.IMPN ---
Progress Note: A&P Assessment and Plan (1) Altered mental status: Qualifiers: Altered mental status type: unspecified Qualified Code(s): R41.82 - Altered mental status, unspecified Code(s): R41.82 - Altered mental status, unspecified Status: Acute (2) Acute on chronic respiratory failure with hypoxia and hypercapnia: Code(s): J96.21 - Acute and chronic respiratory failure with hypoxia; J96.22 - Acute and chronic respiratory failure with hypercapnia Status: Acute (3) Acute kidney injury: Code(s): N17.9 - Acute kidney failure, unspecified Status: Acute (4) Diastolic congestive heart failure: Code(s): I50.30 - Unspecified diastolic (congestive) heart failure Status: Acute (5) Pulmonary edema: Qualifiers: Chronicity: acute Qualified Code(s): J81.0 - Acute pulmonary edema Code(s): J81.1 - Chronic pulmonary edema Status: Acute (6) Obstructive sleep apnea treated with BiPAP: Code(s): G47.33 - Obstructive sleep apnea (adult) (pediatric) Status: Acute (7) Asthma-COPD overlap syndrome: Code(s): J44.9 - Chronic obstructive pulmonary disease, unspecified Status: Acute (8) Chronic obstructive pulmonary disease: Code(s): J44.9 - Chronic obstructive pulmonary disease, unspecified Status: Acute (9) Schizophrenia: Qualifiers: Schizophrenia type: unspecified Qualified Code(s): F20.9 - Schizophrenia, unspecified Code(s): F20.9 - Schizophrenia, unspecified Status: Chronic (10) Seizure disorder: Code(s): G40.909 - Epilepsy, unspecified, not intractable, without status epilepticus Status: Acute Plan 09/02/2022: patient presented with altered mental status. Patient reports has some problem with the right lower extremity that she has wanted to get some sort of surgery on. I am not sure what she is referring to. Looks like recent admission workup reveals severe osteoarthritis on the right knee and was suggested to have a orthopedic follow-up as an outpatient for surgical evaluation. She has history of seizures and multiple different medications Depakote Tegretol clonidine gabapentin Haldol and Zyprexa some which are for her underlying schizophrenia and depression. She has a history of obstructive sleep apnea on BiPAP obesity hypoventilation syndrome coronary artery disease diastolic congestive heart failure hypertension diet-controlled diabetes seizures. She is from [facility]. She was apparently poorly responsive at the nursing facility and was found slumped over in her chair without her oxygen. She was only responsive to sternal rub in the ER. EMS reported patient to be hypotensive however blood pressure was adequate upon arrival to the ER. She was alert to person only with slurred speech and appeared drowsy and rhythm less responsive than usual. She is placed on 4 L and eventually improved and became more responsive. Workup in the ER revealed WBCs 3.6 normal hemoglobin creatinine 1.4 normal LFT BNP off 4900 ABG 7.48/53/136/39 chest x-ray with cardiomegaly and pulmonary vascular congestion bibasilar infiltrate or atelectasis. Head CT with cerebral atherosclerosis and chronic small-vessel ischemic disease of cerebral white matter with no acute intracranial finding. She has mild leukopenia noted in previous labs on and off mild VARSHA on admission with creatinine 1.4. Previous BNP level was 5760 and most recent admission. VARSHA resolved and IV fluid has been stopped. Resume all her home medication. Will recheck ABG in a.m.. Does have mild pulmonary vascular congestion on chest x-ray on admission. Recheck chest x-ray in a.m. and repeat labs. If stable mental status preston plan to DC back to [facility] Subjective Date/time seen: 09/02/22 14:23 Interval history: patient presented with altered mental status. Patient reports has some problem with the right lowe
[2022-09-02] MEDS: DIVALPROEX SODIUM ER 250 MG TAB.24H 750 MG PO (20:34)
[2022-09-02] MEDS: traZODone HCL 50 MG TABLET PO (20:35)
[2022-09-02] MEDS: ATORVASTATIN 20 MG TABLET PO (20:35)
[2022-09-03] VITALS (19 sets, daily range): BP systolic 130–184; BP diastolic 61–91; PULSE 55–78; RESP 16–19; TEMP 36.1–37.1; O2SAT 95–100
[2022-09-03] MEDS: IPRATROPIUM BR 0.02% INH SOLN 0.5 MG/2.5 ML VIAL INHALATION ×4 (01:41→21:05)
[2022-09-03] MEDS: ALBUTEROL SULFATE NEB 2.5 MG/3 ML INH INHALATION ×4 (01:41→21:04)
[2022-09-03 05:39] LABS: Alveolar/Arterial O2 Gradient 25.3 mmHg; Base Excess ABG 12.4 mEq/l (+/-2.0); Fractional Inspired Oxygen 24 %; HCO3 ABG 39.7 mEq/l (22.0-26.0); Oxygen Content ABG 17.1 %vol (16.0-22.0); Oxygen Saturation ABG 93.6 % (95.0-100.0); Oxyhemoglobin 91.9 % THb (90.0-100.0); PO2 ABG 69.7 mmHg (80.0-100.0); Total Hemoglobin 13.2 g/dL (12.0-18.0); pH ABG 7.411 (7.350-7.450)
[2022-09-03 05:41] LABS: Device NASAL CANNULA; Modified Allen's Test Pass; Site Drawn RIGHT RADIAL
[2022-09-03 05:48] LABS: Basophils Percent Auto 1.5 % (0.2-1.2); Eosinophils Absolute Auto 0.1 K/mm3 (0-0.3); Hematocrit 37.8 % (37.0-47.0); Hemoglobin 12.4 g/dL (12.0-15.0); Lymphocytes Absolute Auto 1.31 K/mm3 (0.9-3.2); Lymphocytes Percent Auto 50.2 % (18.3-44.2); Mean Corpuscular HGB Conc 32.8 g/dl (32-36); Mean Corpuscular Hemoglobin 33.1 pg (26-34); Mean Corpuscular Volume 100.8 fl (80-100); Mean Platelet Volume 9.9 fl (7.4-10.4); Monocytes Absolute Auto 0.4 K/mm3 (0.1-0.6); Monocytes Percent Auto 16.9 % (2.6-8.5); Neutrophils Absolute Auto 0.7 K/mm3 (1.3-6.7); Neutrophils Percent Auto 26.4 % (45.5-73.1); Platelet Count Result 167 k/mm3 (150-375); Red Blood Count 3.75 M/mm3 (4.2-5.4); White Blood Count 2.6 K/mm3 (4.5-10.0)
[2022-09-03 06:16] LABS: Alanine Aminotransferase 9 U/L (6-35); Albumin Level 3.4 g/dL (3.5-5.1); Alkaline Phosphatase 55 U/L (38-126); Aspartate Amino Transferase 16 U/L (14-36); Bilirubin,Total 0.3 mg/dL (0.2-1.3); Blood Urea Nitrogen 17 mg/dL (7-17); Calcium 8.6 mg/dL (8.4-10.2); Carbon Dioxide > 40 mmol/L (22-30); Chloride 86 mmol/L (98-107); Estimated CRCL calculation 63 ml/min; Estimated Glomerular Filt Rate > 60; Glucose 90 mg/dL (65-110); Potassium 3.7 mmol/L (3.4-5.0); Sodium 130 mmol/L (137-145)
[2022-09-03] MEDS: FLUTICASONE PROP 110 MCG INHALER 12 GM (*SP) 1 PUFF INHALATION ×2 (09:04→21:07)
[2022-09-03] MEDS: DOCUSATE SODIUM 100 MG CAPSULE PO (09:10)
[2022-09-03] MEDS: POTASSIUM CHLORIDE 20 MEQ PACKET (FOR LIQUID) PO (09:10)
[2022-09-03] MEDS: GABAPENTIN 400 MG CAPSULE PO ×3 (09:11→16:55)
[2022-09-03] MEDS: BENZTROPINE MESYLATE 0.5 MG TABLET PO ×2 (09:11→20:57)
[2022-09-03] MEDS: NIFEdipine 30 MG TAB.ER.24 60 MG PO (09:11)
[2022-09-03] MEDS: ASPIRIN 81 MG CHEWABLE TABLET PO (09:11)
[2022-09-03] MEDS: hydrALAZINE HCL 50 MG TABLET 100 MG PO ×3 (09:11→16:55)
[2022-09-03] MEDS: carvediloL 3.125 MG TABLET PO ×2 (09:11→20:57)
[2022-09-03] MEDS: FAMOTIDINE 20 MG TABLET PO (09:11)
[2022-09-03] MEDS: MAGNESIUM OXIDE 400 MG TABLET PO (09:12)
[2022-09-03] MEDS: ARIPiprazole 10 MG TABLET 30 MG PO (09:12)
[2022-09-03] MEDS: OLANZapine 5 MG TABLET 10 MG PO ×2 (09:12→20:57)
[2022-09-03] MEDS: cloNIDine HCL 0.1 MG TABLET 0.3 MG PO ×2 (09:12→20:57)
[2022-09-03] MEDS: SERTRALINE HCL 25 MG TABLET 75 MG PO (09:13)
[2022-09-03] MEDS: carBAMazepine 200 MG TABLET PO ×2 (09:13→20:58)
[2022-09-03] MEDS: FUROSEMIDE 40 MG TABLET PO (09:13)
[2022-09-03] MEDS: FERROUS SULFATE 325 MG TABLET DR BY MOUTH (09:13)
[2022-09-03] MEDS: DIVALPROEX SODIUM ER 500 MG TAB.24H PO (09:13)
[2022-09-03] MEDS: guaiFENesin 12 HR 600 MG TABCR PO ×2 (09:13→20:57)
[2022-09-03] MEDS: TRIAMCINOLONE ACET 0.1% CREAM 15 GM TUBE 1 APPLIC TOPICAL ×2 (09:14→21:02)
[2022-09-03] MEDS: MICONAZOLE NITRATE 2% CREAM 30 GM TUBE 1 APPLIC TOPICAL ×2 (09:14→21:02)
[2022-09-03] MEDS: HALOPERIDOL 5 MG TABLET PO ×2 (09:14→20:57)
[2022-09-03] MEDS: polyethylene glycoL 3350 17 GM POWD.PACK PO (09:18)
[2022-09-03] MEDS: amLODIPine BESYLATE 5 MG TABLET 10 MG PO (11:16)
[2022-09-03 12:12] LABS: Blood Urea Nitrogen 14 mg/dL (7-17); Carbon Dioxide > 40 mmol/L (22-30); Chloride 84 mmol/L (98-107); Potassium 3.9 mmol/L (3.4-5.0); Sodium 129 mmol/L (137-145)
[2022-09-03 12:13] LABS: Calcium 8.5 mg/dL (8.4-10.2); Estimated CRCL calculation 73 ml/min; Estimated Glomerular Filt Rate > 60; Glucose 97 mg/dL (65-110)
--- NOTE | 2022-09-03 14:10 | PM.IMPN ---
Progress Note: A&P Assessment and Plan (1) Acute on chronic respiratory failure with hypoxia and hypercapnia: Code(s): J96.21 - Acute and chronic respiratory failure with hypoxia; J96.22 - Acute and chronic respiratory failure with hypercapnia Status: Acute Assessment and Plan: Patient was found to be hypoxic on EMS arrival with an ABG revealing a pCO2 to more elevated than usual for her. Patient states that she chronically wears 3 L of oxygen at home. Patient was placed on 4 L when she presented to the hospital was wean down to maintain greater than 90%. Patient instructed to wear her BiPAP as prescribed. (2) Altered mental status: Qualifiers: Altered mental status type: unspecified Qualified Code(s): R41.82 - Altered mental status, unspecified Code(s): R41.82 - Altered mental status, unspecified Status: Resolved Assessment and Plan: Patient from [facility] and they called EMS due to patient being unresponsive. Workup in the ER revealed: WBCs 3.6 normal hemoglobin creatinine 1.4 normal LFT BNP off 4900 ABG 7.48/53/136/39 chest x-ray with cardiomegaly and pulmonary vascular congestion bibasilar infiltrate or atelectasis. Head CT with cerebral atherosclerosis and chronic small-vessel ischemic disease of cerebral white matter with no acute intracranial finding. (3) Acute kidney injury: Code(s): N17.9 - Acute kidney failure, unspecified Status: Acute Assessment and Plan: with you patient was found have a creatinine of 1.4 which is above her baseline. Patient was given IV fluids in AKA resolved. IV fluids then discontinued. (4) Diastolic congestive heart failure: Code(s): I50.30 - Unspecified diastolic (congestive) heart failure Status: Acute Assessment and Plan: Patient had echocardiogram on 08/26/2022 that revealed EF of 60-65%, grade 1 diastolic dysfunction mild valvular disease and moderate pulmonary hypertension. Continue furosemide daily. (5) Pulmonary edema: Qualifiers: Chronicity: acute Qualified Code(s): J81.0 - Acute pulmonary edema Code(s): J81.1 - Chronic pulmonary edema Status: Acute Assessment and Plan: chest x-ray revealing pulmonary edema. Repeat chest x-ray on 09/03/2022 showing possible minimal central congestive changes. (6) Obstructive sleep apnea treated with BiPAP: Code(s): G47.33 - Obstructive sleep apnea (adult) (pediatric) Status: Acute Assessment and Plan: Instructed to wear BiPAP at home and BiPAP provided in the facility. (7) Asthma-COPD overlap syndrome: Code(s): J44.9 - Chronic obstructive pulmonary disease, unspecified Status: Acute Assessment and Plan: DuoNebs p.r.n.. Continue home medications as prescribed. (8) Chronic obstructive pulmonary disease: Code(s): J44.9 - Chronic obstructive pulmonary disease, unspecified Status: Acute Assessment and Plan: See above (9) Seizure disorder: Code(s): G40.909 - Epilepsy, unspecified, not intractable, without status epilepticus Status: Chronic Assessment and Plan: She has history of seizures and multiple different medications Depakote Tegretol clonidine gabapentin Haldol and Zyprexa some which are for her underlying schizophrenia and depression. (10) Schizophrenia: Qualifiers: Schizophrenia type: unspecified Qualified Code(s): F20.9 - Schizophrenia, unspecified Code(s): F20.9 - Schizophrenia, unspecified Status: Chronic Assessment and Plan: Continue home medications. (11) Hyponatremia: Code(s): E87.1 - Hypo-osmolality and hyponatremia Status: Acute Assessment and Plan: Patient found to have a sodium of 129 which is below her baseline. She typically runs in the mid 130s. Fluid restriction initiated. She is on daily furosemide but this is a daily m
[2022-09-03 16:09] LABS: Creatinine Urine 29.4 mg/dL
[2022-09-03 16:10] LABS: Sodium Urine Random 93 meq/L
[2022-09-03 19:47] LABS: Glucose Point of Care 104 mg/dl (65-105)
[2022-09-03] MEDS: DIVALPROEX SODIUM ER 250 MG TAB.24H 750 MG PO (20:56)
[2022-09-03] MEDS: ATORVASTATIN 20 MG TABLET PO (20:57)
[2022-09-03] MEDS: traZODone HCL 50 MG TABLET PO (20:57)
[2022-09-04] VITALS (23 sets, daily range): BP systolic 126–154; BP diastolic 61–78; PULSE 53–86; RESP 16–22; TEMP 36.4–36.9; O2SAT 95–100
[2022-09-04] MEDS: ALBUTEROL SULFATE NEB 2.5 MG/3 ML INH INHALATION ×4 (03:01→19:59)
[2022-09-04] MEDS: IPRATROPIUM BR 0.02% INH SOLN 0.5 MG/2.5 ML VIAL INHALATION ×4 (03:01→19:59)
[2022-09-04 05:35] LABS: Hemoglobin 11.9 g/dL (12.0-15.0); Mean Corpuscular HGB Conc 32.2 g/dl (32-36); Mean Corpuscular Hemoglobin 32.1 pg (26-34); Mean Corpuscular Volume 99.7 fl (80-100); Mean Platelet Volume 10.2 fl (7.4-10.4); Platelet Count Result 164 k/mm3 (150-375); Red Blood Count 3.71 M/mm3 (4.2-5.4); Red Cell Distribution Width 12.8 % (11.5-14.5); White Blood Count 2.8 K/mm3 (4.5-10.0)
[2022-09-04 05:55] LABS: Alanine Aminotransferase 9 U/L (6-35); Albumin Level 3.3 g/dL (3.5-5.1); Alkaline Phosphatase 50 U/L (38-126); Aspartate Amino Transferase 18 U/L (14-36); Bilirubin,Total 0.4 mg/dL (0.2-1.3); Blood Urea Nitrogen 17 mg/dL (7-17); Calcium 8.5 mg/dL (8.4-10.2); Carbon Dioxide > 40 mmol/L (22-30); Chloride 85 mmol/L (98-107); Estimated CRCL calculation 63 ml/min; Estimated Glomerular Filt Rate > 60; Glucose 86 mg/dL (65-110); Potassium 3.9 mmol/L (3.4-5.0); Sodium 127 mmol/L (137-145)
[2022-09-04 06:16] LABS: Cortisol Random 4.84 ug/dL
[2022-09-04] MEDS: FLUTICASONE PROP 110 MCG INHALER 12 GM (*SP) 1 PUFF INHALATION ×2 (09:14→20:00)
[2022-09-04] MEDS: SODIUM CHLORIDE 0.9% IV 500 ML 100 ML IV CONT (10:01)
[2022-09-04] MEDS: ASPIRIN 81 MG CHEWABLE TABLET PO (10:02)
[2022-09-04] MEDS: DIVALPROEX SODIUM ER 500 MG TAB.24H PO (10:02)
[2022-09-04] MEDS: HALOPERIDOL 5 MG TABLET PO ×2 (10:03→21:09)
[2022-09-04] MEDS: amLODIPine BESYLATE 5 MG TABLET 10 MG PO (10:03)
[2022-09-04] MEDS: carBAMazepine 200 MG TABLET PO ×2 (10:03→21:09)
[2022-09-04] MEDS: SERTRALINE HCL 25 MG TABLET 75 MG PO (10:03)
[2022-09-04] MEDS: BENZTROPINE MESYLATE 0.5 MG TABLET PO ×2 (10:03→21:10)
[2022-09-04] MEDS: carvediloL 3.125 MG TABLET PO ×2 (10:04→21:09)
[2022-09-04] MEDS: hydrALAZINE HCL 50 MG TABLET 100 MG PO ×3 (10:04→17:52)
[2022-09-04] MEDS: FAMOTIDINE 20 MG TABLET PO (10:04)
[2022-09-04] MEDS: guaiFENesin 12 HR 600 MG TABCR PO ×2 (10:04→21:09)
[2022-09-04] MEDS: OLANZapine 5 MG TABLET 10 MG PO ×2 (10:04→21:09)
[2022-09-04] MEDS: MAGNESIUM OXIDE 400 MG TABLET PO (10:04)
[2022-09-04] MEDS: GABAPENTIN 400 MG CAPSULE PO ×3 (10:04→17:52)
[2022-09-04] MEDS: DOCUSATE SODIUM 100 MG CAPSULE PO (10:04)
[2022-09-04] MEDS: POTASSIUM CHLORIDE 20 MEQ PACKET (FOR LIQUID) PO (10:05)
[2022-09-04] MEDS: polyethylene glycoL 3350 17 GM POWD.PACK PO (10:05)
[2022-09-04] MEDS: ARIPiprazole 10 MG TABLET 30 MG PO (10:05)
[2022-09-04] MEDS: FERROUS SULFATE 325 MG TABLET DR BY MOUTH (10:05)
[2022-09-04] MEDS: NIFEdipine 30 MG TAB.ER.24 60 MG PO (10:05)
[2022-09-04] MEDS: cloNIDine HCL 0.1 MG TABLET 0.3 MG PO ×2 (10:05→21:09)
[2022-09-04] MEDS: TRIAMCINOLONE ACET 0.1% CREAM 15 GM TUBE 1 APPLIC TOPICAL ×2 (10:06→21:10)
[2022-09-04] MEDS: MICONAZOLE NITRATE 2% CREAM 30 GM TUBE 1 APPLIC TOPICAL ×2 (10:06→21:10)
[2022-09-04 14:10] LABS: Blood Urea Nitrogen 18 mg/dL (7-17); Calcium 8.5 mg/dL (8.4-10.2); Carbon Dioxide > 40 mmol/L (22-30); Chloride 86 mmol/L (98-107); Estimated CRCL calculation 63 ml/min; Estimated Glomerular Filt Rate > 60; Glucose 107 mg/dL (65-110); Sodium 129 mmol/L (137-145)
--- NOTE | 2022-09-04 15:48 | P.PNIM_ITS ---
Progress Note: A&P Assessment and Plan (1) Acute on chronic respiratory failure with hypoxia and hypercapnia: Code(s): J96.21 - Acute and chronic respiratory failure with hypoxia; J96.22 - Acute and chronic respiratory failure with hypercapnia Status: Acute Assessment and Plan: Patient was found to be hypoxic on EMS arrival with an ABG revealing a pCO2 to more elevated than usual for her. Patient states that she chronically wears 3 L of oxygen at home. * Patient was placed on 4 L when she presented to the hospital was wean down to maintain greater than 90%. * Patient instructed to wear her BiPAP as prescribed. (2) Altered mental status: Qualifiers: Altered mental status type: unspecified Qualified Code(s): R41.82 - Altered mental status, unspecified Code(s): R41.82 - Altered mental status, unspecified Status: Resolved Assessment and Plan: Patient from [facility] and they called EMS due to patient being unresponsive. Workup in the ER revealed: * WBCs 3.6 normal hemoglobin creatinine 1.4 normal LFT BNP off 4900 ABG 7.48/53/136/39 * chest x-ray with cardiomegaly and pulmonary vascular congestion bibasilar i nfiltrate or atelectasis. * Head CT with cerebral atherosclerosis and chronic small-vessel ischemic disease of cerebral white matter with no acute intracranial finding. (3) Acute kidney injury: Code(s): N17.9 - Acute kidney failure, unspecified Status: Acute Assessment and Plan: with you patient was found have a creatinine of 1.4 which is above her baseline. * Patient was given IV fluids in AKA resolved. * IV fluids then discontinued. (4) Diastolic congestive heart failure: Code(s): I50.30 - Unspecified diastolic (congestive) heart failure Status: Acute Assessment and Plan: Patient had echocardiogram on 08/26/2022 that revealed EF of 60-65%, grade 1 diastolic dysfunction mild valvular disease and moderate pulmonary hypertension. Continue furosemide daily. (5) Pulmonary edema: Qualifiers: Chronicity: acute Qualified Code(s): J81.0 - Acute pulmonary edema Code(s): J81.1 - Chronic pulmonary edema Status: Acute Assessment and Plan: chest x-ray revealing pulmonary edema. Repeat chest x-ray on 09/03/2022 showing possible minimal central congestive changes. (6) Obstructive sleep apnea treated with BiPAP: Code(s): G47.33 - Obstructive sleep apnea (adult) (pediatric) Status: Acute Assessment and Plan: Instructed to wear BiPAP at home and BiPAP provided in the facility. (7) Asthma-COPD overlap syndrome: Code(s): J44.9 - Chronic obstructive pulmonary disease, unspecified Status: Acute Assessment and Plan: DuoNebs p.r.n.. Continue home medications as prescribed. (8) Chronic obstructive pulmonary disease: Code(s): J44.9 - Chronic obstructive pulmonary disease, unspecified Status: Acute Assessment and Plan: See above (9) Seizure disorder: Code(s): G40.909 - Epilepsy, unspecified, not intractable, without status epilepticus Status: Chronic Assessment and Plan: She has history of seizures and multiple different medications Depakote Tegretol clonidine gabapentin Haldol and Zyprexa some which are for her underlying schizophrenia and depression. (10) Schizophrenia: Qualifiers: Schizophrenia type: unspecified Qualified Code(s): F20.9 - Schizophrenia, unspecified Code(s): F20.9 - Schizophrenia, unspecified
[2022-09-04] MEDS: traZODone HCL 50 MG TABLET PO (21:09)
[2022-09-04] MEDS: DIVALPROEX SODIUM ER 250 MG TAB.24H 750 MG PO (21:09)
[2022-09-04] MEDS: ATORVASTATIN 20 MG TABLET PO (21:09)
[2022-09-05] VITALS (8 sets, daily range): BP systolic 133–140; BP diastolic 65–67; PULSE 56–78; RESP 16–27; TEMP 36.7–36.8; O2SAT 95–100
--- NOTE | 2022-09-05 05:53 | PCRCNOTE ---
Pt given 0200 TX
[2022-09-05 07:47] LABS: Alanine Aminotransferase 10 U/L (6-35); Albumin Level 3.3 g/dL (3.5-5.1); Alkaline Phosphatase 52 U/L (38-126); Aspartate Amino Transferase 16 U/L (14-36); Bilirubin,Total 0.3 mg/dL (0.2-1.3); Blood Urea Nitrogen 20 mg/dL (7-17); Calcium 8.6 mg/dL (8.4-10.2); Carbon Dioxide > 40 mmol/L (22-30); Chloride 88 mmol/L (98-107); Estimated CRCL calculation 63 ml/min; Estimated Glomerular Filt Rate > 60; Glucose 93 mg/dL (65-110); Potassium 3.9 mmol/L (3.4-5.0); Sodium 131 mmol/L (137-145)
[2022-09-05] MEDS: IPRATROPIUM BR 0.02% INH SOLN 0.5 MG/2.5 ML VIAL INHALATION ×2 (07:58→13:05)
[2022-09-05] MEDS: ALBUTEROL SULFATE NEB 2.5 MG/3 ML INH INHALATION ×2 (07:58→13:04)
[2022-09-05] MEDS: MAGNESIUM OXIDE 400 MG TABLET PO (08:05)
[2022-09-05] MEDS: amLODIPine BESYLATE 5 MG TABLET 10 MG PO (08:06)
[2022-09-05] MEDS: ARIPiprazole 10 MG TABLET 30 MG PO (08:06)
[2022-09-05] MEDS: carBAMazepine 200 MG TABLET PO (08:06)
[2022-09-05] MEDS: BENZTROPINE MESYLATE 0.5 MG TABLET PO (08:06)
[2022-09-05] MEDS: cloNIDine HCL 0.1 MG TABLET 0.3 MG PO (08:06)
[2022-09-05] MEDS: OLANZapine 5 MG TABLET 10 MG PO (08:06)
[2022-09-05] MEDS: FAMOTIDINE 20 MG TABLET PO (08:06)
[2022-09-05] MEDS: GABAPENTIN 400 MG CAPSULE PO ×2 (08:06→12:13)
[2022-09-05] MEDS: ASPIRIN 81 MG CHEWABLE TABLET PO (08:06)
[2022-09-05] MEDS: guaiFENesin 12 HR 600 MG TABCR PO (08:06)
[2022-09-05] MEDS: NIFEdipine 30 MG TAB.ER.24 60 MG PO (08:06)
[2022-09-05] MEDS: hydrALAZINE HCL 50 MG TABLET 100 MG PO ×2 (08:06→12:13)
[2022-09-05] MEDS: DIVALPROEX SODIUM ER 500 MG TAB.24H PO (08:07)
[2022-09-05] MEDS: SERTRALINE HCL 25 MG TABLET 75 MG PO (08:07)
[2022-09-05] MEDS: HALOPERIDOL 5 MG TABLET PO (08:07)
[2022-09-05] MEDS: DOCUSATE SODIUM 100 MG CAPSULE PO (08:07)
[2022-09-05] MEDS: carvediloL 3.125 MG TABLET PO (08:07)
[2022-09-05] MEDS: polyethylene glycoL 3350 17 GM POWD.PACK PO (08:07)
[2022-09-05] MEDS: FERROUS SULFATE 325 MG TABLET DR BY MOUTH (08:07)
[2022-09-05] MEDS: MICONAZOLE NITRATE 2% CREAM 30 GM TUBE 1 APPLIC TOPICAL (08:07)
[2022-09-05] MEDS: POTASSIUM CHLORIDE 20 MEQ PACKET (FOR LIQUID) PO (08:07)
[2022-09-05] MEDS: TRIAMCINOLONE ACET 0.1% CREAM 15 GM TUBE 1 APPLIC TOPICAL (08:08)
[2022-09-05 09:25] LABS: Basophils Percent Auto 0.7 % (0.2-1.2); Eosinophils Absolute Auto 0.1 K/mm3 (0-0.3); Eosinophils Percent Auto 3.2 % (0-4.4); Hemoglobin 11.8 g/dL (12.0-15.0); Lymphocytes Absolute Auto 1.22 K/mm3 (0.9-3.2); Lymphocytes Percent Auto 43.4 % (18.3-44.2); Mean Corpuscular HGB Conc 31.9 g/dl (32-36); Mean Corpuscular Hemoglobin 32.6 pg (26-34); Mean Corpuscular Volume 102.2 fl (80-100); Mean Platelet Volume 10.5 fl (7.4-10.4); Monocytes Absolute Auto 0.5 K/mm3 (0.1-0.6); Monocytes Percent Auto 19.2 % (2.6-8.5); Neutrophils Absolute Auto 0.9 K/mm3 (1.3-6.7); Neutrophils Percent Auto 33.5 % (45.5-73.1); Platelet Count Result 168 k/mm3 (150-375); Red Blood Count 3.62 M/mm3 (4.2-5.4); Red Cell Distribution Width 13.2 % (11.5-14.5); White Blood Count 2.8 K/mm3 (4.5-10.0)
--- NOTE | 2022-09-05 12:49 | PM.DS ---
DS: Admitting Diagnosis Discharge Date 09/05/22 Admitting Diagnosis CHF exacerbation DS: Discharge Diagnosis Discharge Diagnosis (1) Acute on chronic respiratory failure with hypoxia and hypercapnia: Code(s): J96.21 - Acute and chronic respiratory failure with hypoxia; J96.22 - Acute and chronic respiratory failure with hypercapnia Status: Acute Assessment and Plan: Patient was found to be hypoxic on EMS arrival with an ABG revealing a pCO2 to more elevated than usual for her. Patient states that she chronically wears 3 L of oxygen at home. Patient was placed on 4 L when she presented to the hospital was wean down to maintain greater than 90%. Patient instructed to wear her BiPAP as prescribed. (2) Altered mental status: Qualifiers: Altered mental status type: unspecified Qualified Code(s): R41.82 - Altered mental status, unspecified Code(s): R41.82 - Altered mental status, unspecified Status: Resolved Assessment and Plan: Patient from [facility] and they called EMS due to patient being unresponsive. Workup in the ER revealed: WBCs 3.6 normal hemoglobin creatinine 1.4 normal LFT BNP off 4900 ABG 7.48/53/136/39 chest x-ray with cardiomegaly and pulmonary vascular congestion bibasilar infiltrate or atelectasis. Head CT with cerebral atherosclerosis and chronic small-vessel ischemic disease of cerebral white matter with no acute intracranial finding. (3) Acute kidney injury: Code(s): N17.9 - Acute kidney failure, unspecified Status: Acute Assessment and Plan: with you patient was found have a creatinine of 1.4 which is above her baseline. Patient was given IV fluids in AKA resolved. IV fluids then discontinued. (4) Diastolic congestive heart failure: Code(s): I50.30 - Unspecified diastolic (congestive) heart failure Status: Acute Assessment and Plan: Patient had echocardiogram on 08/26/2022 that revealed EF of 60-65%, grade 1 diastolic dysfunction mild valvular disease and moderate pulmonary hypertension. Continue furosemide daily. (5) Pulmonary edema: Qualifiers: Chronicity: acute Qualified Code(s): J81.0 - Acute pulmonary edema Code(s): J81.1 - Chronic pulmonary edema Status: Acute Assessment and Plan: chest x-ray revealing pulmonary edema. Repeat chest x-ray on 09/03/2022 showing possible minimal central congestive changes. (6) Obstructive sleep apnea treated with BiPAP: Code(s): G47.33 - Obstructive sleep apnea (adult) (pediatric) Status: Acute Assessment and Plan: Instructed to wear BiPAP at home and BiPAP provided in the facility. (7) Asthma-COPD overlap syndrome: Code(s): J44.9 - Chronic obstructive pulmonary disease, unspecified Status: Acute Assessment and Plan: DuoNebs p.r.n.. Continue home medications as prescribed. (8) Chronic obstructive pulmonary disease: Code(s): J44.9 - Chronic obstructive pulmonary disease, unspecified Status: Acute Assessment and Plan: See above (9) Seizure disorder: Code(s): G40.909 - Epilepsy, unspecified, not intractable, without status epilepticus Status: Chronic Assessment and Plan: She has history of seizures and multiple different medications Depakote Tegretol clonidine gabapentin Haldol and Zyprexa some which are for her underlying schizophrenia and depression. (10) Schizophrenia: Qualifiers: Schizophrenia type: unspecified Qualified Code(s): F20.9 - Schizophrenia, unspecified Code(s): F20.9 - Schizophrenia, unspecified Status: Chronic Assessment and Plan: Continue home medications. (11) Hyponatremia: Code(s): E87.1 - Hypo-osmolality and hyponatremia Status: Acute Assessment and Plan: Patient found to have a sodium of 129 which is below her baseline. She typically runs in
[2022-09-05] MEDS: FLUTICASONE PROP 110 MCG INHALER 12 GM (*SP) 1 PUFF INHALATION (13:05)
--- NOTE | 2022-09-05 17:08 | PC.NURSE ---
attempted to call report to [facility] 3x. discharge packet faxed over, awaiting EMS
== END 2022-09-05 20:30 | DRG 469 ==
LOC: ANHED 11:04 → ANHIMU 15:14 → ANH2MED 09-02 09:23
PROVIDERS: Internal Medicine; Physician Assistant; Admitting Provider Chiropractor; Emergency Provider Emergency Medicine; Visit Provider Internal Medicine Critical Care Medicine
DX: N17.9 Acute kidney failure, unspecified (principal); I27.20 Pulmonary hypertension, unspecified; E87.1 Hypo-osmolality and hyponatremia; E66.2 Morbid (severe) obesity with alveolar hypoventilation; I11.0 Hypertensive heart disease with heart failure; I50.32 Chronic diastolic (congestive) heart failure; F20.9 Schizophrenia, unspecified; R41.82 Altered mental status, unspecified; J44.9 Chronic obstructive pulmonary disease, unspecified; G40.909 Epilepsy, unspecified, not intractable, without status epilepticus; J96.11 Chronic respiratory failure with hypoxia; J96.12 Chronic respiratory failure with hypercapnia; F45.8 Other somatoform disorders; I25.10 Atherosclerotic heart disease of native coronary artery without angina pectoris; E11.9 Type 2 diabetes mellitus without complications; K21.9 Gastro-esophageal reflux disease without esophagitis; F32.A Depression, unspecified; M17.11 Unilateral primary osteoarthritis, right knee; R47.81 Slurred speech; Z99.81 Dependence on supplemental oxygen; Z87.891 Personal history of nicotine dependence; Z88.0 Allergy status to penicillin; Z86.73 Personal history of transient ischemic attack (TIA), and cerebral infarction without residual deficits; Z86.718 Personal history of other venous thrombosis and embolism; Z68.36 Body mass index [BMI] 36.0-36.9, adult; Z99.89 Dependence on other enabling machines and devices; Z90.49 Acquired absence of other specified parts of digestive tract; Z96.642 Presence of left artificial hip joint
CPT/HCPCS: 36415; 36600; 70450; 71045; 80048; 80053; 82375; 82533; 82570; 82805; 82948; 83050; 83735; 83880; 84300; 85025; 85027; 85610; 85730; 93005; 94002; 94003; 94640; 96360; 96361; 97161; 99285; A9270; G0378; G0379; J7030; J7040

== ENCOUNTER 2022-10-31 12:52 | Emergency (ER) | payer OTHER, SELFPAY ==
[2022-10-31] VITALS (26 sets, daily range): BP systolic 135–174; BP diastolic 66–86; PULSE 62–70; RESP 16–20; TEMP 36.6; O2SAT 97–100
--- NOTE | ~2022-10-31 | CT_ITS ---
EXAMINATION: CT brain wo con DATE: 10/31/2022 14:55 INDICATION: Head injury. TECHNIQUE: Computed tomography (CT) of the head was performed without intravenous contrast. The mA wa s adjusted according to patient size. Iterative reconstruction technique was employed. The dose-lengt h product was 605.33 mGy-cm. COMPARISON: Head CT 08/31/2022 FINDINGS: There are scattered areas of low attenuation in the cerebral white matter. There is an empt y sella. There is no intracranial hemorrhage, acute infarction, or abnormal intracranial mass lesion. The ventricles are normal in size. The paranasal sinuses are clear. The orbits are normal. There are small bilateral mastoid effusions. IMPRESSION: 1. Stable mild nonspecific cerebral white matter disease, which likely represents chronic small vesse l ischemic disease. Reviewed, dictated and finalized at location A. IMPRESSION: 1. Stable mild nonspecific cerebral white matter disease, which likely represen ts chronic small vessel ischemic disease.
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
--- NOTE | ~2022-10-31 | XR_ITS ---
Right Knee Technique: AP, lateral, and oblique views were obtained. Clinical History: Pain Findings: No fracture or dislocation is seen. Osseous alignment is anatomic. There is advanced degene rative change of the medial compartment, with medial joint line spurring and medial compartment narro wing. There is mild to moderate degenerative change of the lateral patellofemoral compartment.. Small joint effusion is seen. Impression: Tricompartmental osteoarthritis, as detailed above, worst in the medial compartment. Small joint effusion. Reviewed, dictated and finalized at location M. Impression: Tricompartmental osteoarthritis, as detailed above, worst in the medial compart ment. Small joint effusion.
--- NOTE | ~2022-10-31 | XR_ITS ---
Left ankle Technique: AP, oblique, and lateral views were obtained. Clinical History: Pain Findings: No acute fracture or dislocation is seen., Healed fracture deformities of the distal fibula noted. Osseous alignment is anatomic. Ankle mortise and other visualized joint spaces are preserved. Soft tissues are otherwise unremarkable. Impression: No acute abnormality. Reviewed, dictated and finalized at location . Impression: No acute abnormality.
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
== END 2022-10-31 19:08 | disposition home or self-care (01) ==
PROVIDERS: Emergency Provider Preventive Medicine Aerospace Medicine
DX: M25.561 Pain in right knee (principal); M25.572 Pain in left ankle and joints of left foot; V49.50XA Passenger injured in collision with unspecified motor vehicles in traffic accident, initial encounter; J96.12 Chronic respiratory failure with hypercapnia; J96.11 Chronic respiratory failure with hypoxia; J44.9 Chronic obstructive pulmonary disease, unspecified; I11.0 Hypertensive heart disease with heart failure; I50.30 Unspecified diastolic (congestive) heart failure; F32.A Depression, unspecified; K21.9 Gastro-esophageal reflux disease without esophagitis; G47.33 Obstructive sleep apnea (adult) (pediatric); F20.9 Schizophrenia, unspecified; E11.9 Type 2 diabetes mellitus without complications; G40.909 Epilepsy, unspecified, not intractable, without status epilepticus; Z79.82 Long term (current) use of aspirin; Z86.73 Personal history of transient ischemic attack (TIA), and cerebral infarction without residual deficits; Z86.718 Personal history of other venous thrombosis and embolism; Z87.891 Personal history of nicotine dependence
CPT/HCPCS: 70450; 72125; 73562; 73610; 99284

== ENCOUNTER 2023-02-27 11:23 | Outpatient (CLI) | payer OTHER, SELFPAY ==
[2023-02-27 11:45] LABS: Hematocrit 32.6 % (37.0-47.0); Hemoglobin 10.1 g/dL (12.0-15.0); Mean Corpuscular Hemoglobin 33.4 pg (26-34); Mean Corpuscular Volume 107.9 fl (80-100); Platelet Count Result 147 k/mm3 (150-375); Red Blood Count 3.02 M/mm3 (4.2-5.4); Red Cell Distribution Width 13.5 % (11.5-14.5); White Blood Count 4.5 K/mm3 (4.5-10.0)
== END 2023-02-27 11:24 | disposition home or self-care (01) ==
LOC: ANHLAB 11:25
PROVIDERS: Visit Provider Internal Medicine Hematology & Oncology
DX: D64.9 Anemia, unspecified (principal)
CPT/HCPCS: 36415; 85027

== ENCOUNTER 2023-04-26 21:36 | Emergency (ER) | payer OTHER, SELFPAY ==
[2023-04-26] VITALS (8 sets, daily range): BP systolic 139–159; BP diastolic 79–90; PULSE 59–67; RESP 16–19; TEMP 36.9; O2SAT 97–100
--- NOTE | ~2023-04-26 | XR_ITS ---
Clinical Indication: Chest pain PA and lateral views of the chest: Comparison: 09/03/2022 Findings: The lungs are clear, without evidence of focal consolidation or pleural effusion. Cardiome diastinal silhouette is stable. Bones and soft tissues are unremarkable. Impression: Clear lungs. Reviewed, dictated and finalized at location . Impression: Clear lungs.
--- NOTE | ~2023-04-26 | CT_ITS ---
Non-contrast Head CT History: Altered mental status COMPARISON: 10/31/2022 Technique: Axial non-contrast imaging of the brain was performed. Dose reduction technique was used on this scan by utilizing automated exposure control and iterative reconstruction technique. The dose -length product (DLP) was 681.00 mGy-cm. Findings: There is no evidence of intracranial hemorrhage, mass lesion, or acute infarct. Brain par enchyma appears normal. The ventricles and subarachnoid spaces are normal in size. The calvarium ap pears normal. The visualized paranasal sinuses and mastoid air cells are clear. Impression: No significant abnormality seen. Reviewed, dictated and finalized at location . Impression: No significant abnormality seen.
--- NOTE | 2023-04-26 21:42 | ECG_ITS ---
Measurements Intervals [place] Rate: 59 P: 44 [place]: 180 QRS: 35 QRSD: 80 T: 134 QT: 450 QTc: 447 Interpretive Statements SINUS BRADYCARDIA BORDERLINE ST-T WAVE ABNORMALITY- DIFFUSE LEADS BASELINE ARTIFACT- I, II, III, AVR, AVL, AVF, V1-V6 BORDERLINE ECG COMPARED TO ECG 08/31/2022 10:44:37 SINUS BRADYCARDIA NOW PRESENT PROLONGED QT INTERVAL NO LONGER PRESENT Electronically Signed On 04-27-2023 6:38:01 CDT by Willy Crawford D.O.
[2023-04-26 22:04] LABS: Eosinophils Absolute Auto 0.1 K/mm3 (0-0.3); Eosinophils Percent Auto 3.5 % (0-4.4); Hematocrit 39.7 % (37.0-47.0); Hemoglobin 12.6 g/dL (12.0-15.0); Lymphocytes Absolute Auto 1.17 K/mm3 (0.9-3.2); Lymphocytes Percent Auto 37.1 % (18.3-44.2); Mean Corpuscular HGB Conc 31.7 g/dl (32-36); Mean Corpuscular Hemoglobin 32.4 pg (26-34); Mean Corpuscular Volume 102.1 fl (80-100); Mean Platelet Volume 10.8 fl (7.4-10.4); Monocytes Absolute Auto 0.5 K/mm3 (0.1-0.6); Monocytes Percent Auto 15.6 % (2.6-8.5); Neutrophils Absolute Auto 1.4 K/mm3 (1.3-6.7); Neutrophils Percent Auto 42.8 % (45.5-73.1); Platelet Count Result 221 k/mm3 (150-375); Red Blood Count 3.89 M/mm3 (4.2-5.4); White Blood Count 3.2 K/mm3 (4.5-10.0)
[2023-04-26 22:14] LABS: Alanine Aminotransferase 11 U/L (6-35); Alkaline Phosphatase 70 U/L (38-126); Anion Gap 1 mmol/L (8-16); Aspartate Amino Transferase 24 U/L (14-36); Bilirubin,Total 0.5 mg/dL (0.2-1.3); Blood Urea Nitrogen 18 mg/dL (7-17); Carbon Dioxide 38 mmol/L (22-30); Chloride 101 mmol/L (98-107); Estimated CRCL calculation 47 ml/min; Estimated Glomerular Filt Rate > 60; Glucose 95 mg/dL (65-110); Lactic Acid Reflex 0.9 mmol/L (0.7-2.0); Potassium 3.3 mmol/L (3.4-5.0); Sodium 140 mmol/L (137-145)
[2023-04-26 23:05] LABS: Influenza A QL RT-PCR Negative (Negative); Influenza B QL RT-PCR Negative (Negative); RSV RNA, RT-PCR Negative (Negative); SARS-CoV-2 RNA PCR Negative (Negative)
--- NOTE | 2023-04-26 23:29 | PC.NURSE ---
Magnesium added to pre sent labs. This RN spoke chary Padron.
[2023-04-26 23:49] LABS: Magnesium 2.2 mg/dL (1.6-2.3)
--- NOTE | 2023-04-27 00:01 | ED.AMS ---
HPI - Altered Mental Status General Chief Complaint: Syncope Stated Complaint: pain all over Time Seen by Provider: 04/26/23 23:28 Source: patient and EMS Mode of arrival: EMS Limitations: altered mental status History of Present Illness HPI narrative: This is a 72 year old female that presents to the ER for altered mental status. Patient with decreased mentation noted at her nursing facility. She was normal around 8:30. They went to check on her about an hour later and she was very lethargic. Facility reports she currently has COVID. Unable to obtain any further history from the patient. Related Data Home Medications Medication Instructions Recorded Confirmed benztropine 0.5 mg tablet 0.5 mg PO Q12H 01/24/20 08/31/22 carbamazepine 200 mg tablet 200 mg PO Q12H 01/24/20 08/31/22 hydralazine 100 mg tablet 100 mg PO TID 01/24/20 08/31/22 haloperidol 5 mg tablet 5 mg PO Q12H 01/25/20 08/31/22 sertraline 25 mg tablet 25 mg PO DAILY 01/25/20 08/31/22 sertraline 50 mg tablet 50 mg PO DAILY 01/25/20 08/31/22 trazodone 50 mg tablet 50 mg PO HS 01/25/20 08/31/22 carvedilol 3.125 mg tablet 3.125 mg PO Q12H 05/22/21 08/31/22 Artificial Tears 1 drp EACH EYE Q6H PRN Dry Eye(S) 09/10/21 08/31/22 atorvastatin 20 mg tablet 20 mg PO HS 09/10/21 08/31/22 clonidine HCl 0.3 mg tablet 0.3 mg PO Q12H 09/10/21 08/31/22 olanzapine 10 mg tablet 10 mg PO Q12H 09/10/21 08/31/22 gabapentin 400 mg capsule 400 mg PO TID 04/29/22 08/31/22 polyvinyl alcohol 1.4 % eye drops 1 drp EACH EYE Q6H PRN Dry Eye(S) 04/29/22 08/31/22 fluticasone propionate 110 1 puff inhalation BID 08/09/22 08/31/22 mcg/actuation HFA aerosol inhaler (Flovent HFA) nifedipine 60 mg tablet,extended 60 mg PO DAILY 08/09/22 08/31/22 release 24 hr (Procardia XL) nystatin-triamcinolone topical 1 applic topical Q12H 08/09/22 08/31/22 cream polyethylene glycol 3350 17 gram 17 g PO DAILY 08/09/22 08/31/22 oral powder packet divalproex 250 mg tablet,extended 750 mg PO HS 08/10/22 08/31/22 release 24 hr divalproex 500 mg tablet,extended 500 mg PO DAILY 08/10/22 08/31/22 release 24 hr aripiprazole 30 mg tablet 30 mg PO DAILY 08/25/22 08/31/22 aspirin 81 mg tablet 81 mg PO DAILY 08/25/22 08/31/22 docusate sodium 100 mg capsule 100 mg PO DAILY 08/25/22 08/31/22 ergocalciferol (vitamin D2) 1,250 1,250 mcg PO MONTHLY 08/25/22 08/31/22 mcg (50,000 unit) capsule famotidine 20 mg tablet 20 mg PO DAILY 08/25/22 08/31/22 ferrous sulfate 325 mg (65 mg 325 mg PO DAILY 08/25/22 08/31/22 iron) tablet doxycycline hyclate 100 mg tablet 100 mg PO Q12H 08/31/22 08/31/22 Allergies Allergy/AdvReac Type Severity Reaction Status Date / Time Penicillins Allergy Unknown Hives / Verified 04/26/23 21:46 [place] Review of Systems Review of Systems: ROS unobtainable: Yes unobtainable due to mental status PMFSH Past Medical History Medical History Asthma-COPD overlap syndrome Cerebrovascular accident Chronic respiratory failure with hypoxia and hypercapnia Deep venous thrombosis Depression Diastolic congestive heart failure EF 60 to 65% in August 2021. Gastroesophageal reflux disease Hypertension Migraine headache Obesity hypoventilation syndrome Obstructive sleep apnea treated with BiPAP Pulmonary hypertension Severe on echo in August 2021 with an estimated PASP of 63 mmHg. Schizophrenia Seizure disorder Type 2 diabetes mellitus Diet-controlled with a recent A1c of 5.2%. Surgical History Surgical History History of arthroscopy of right knee History of cardiac catheterization History of section, classical History of cholecystectomy History of left hip replacement History of sinus surgery Family History Family History Mother Heart disease Cancer Cerebrovascular accident Sibling Pacemaker Soc
[2023-04-27 00:03] LABS: Troponin I 0.014 ng/mL (0.000-0.034)
[2023-04-27 00:16] LABS: Alveolar/Arterial O2 Gradient 10.7 mmHg; Base Excess ABG 6.9 mEq/l (+/-2.0); Carboxyhemoglobin 0.7 % THb (0-2.0); Fractional Inspired Oxygen 21 %; HCO3 ABG 34.1 mEq/l (22.0-26.0); Methemoglobin ABG 0.3 %THb (0-1.5); Oxygen Content ABG 17.2 %vol (16.0-22.0); Oxygen Saturation ABG 92.2 % (95.0-100.0); Oxyhemoglobin 91.1 % THb (90.0-100.0); PO2 ABG 66.6 mmHg (80.0-100.0); PO2 FiO2 Ratio Arterial Blood 3.17 %; Reduced Hemoglobin 7.9 %THb (0-5.0); Total Hemoglobin 13.4 g/dL (12.0-18.0); pH ABG 7.369 (7.350-7.450)
[2023-04-27 00:18] LABS: Device ROOM AIR; Modified Allen's Test Pass; PCO2 ABG 60.5 mmHg (35.0-45.0); Site Drawn LEFT RADIAL
[2023-04-27 00:19] LABS: NT Pro B Type Natriuretic Pept 336 pg/mL (19.9-100)
--- NOTE | 2023-04-27 00:20 | PC.NURSE ---
EDP ANANYA Meeks VORB 500 mL normal saline to run with potassium.
[2023-04-27] MEDS: POTASSIUM CHLORIDE INJ 40 MEQ in SODIUM CHLORIDE 0.9% IV 500 ML 130 MEQ IVPB (00:21)
[2023-04-27] MEDS: SODIUM CHLORIDE 0.9% IV 500 ML 999 ML IV CONT (00:22)
[2023-04-27 00:33] VITALS: BP 169/92; PULSE 59; RESP 20; O2SAT 100
[2023-04-27 00:34] LABS: CRP < 0.5 mg/dL (<1.0)
[2023-04-27 00:36] LABS: Appearance Urine Clear (Clear); Bilirubin Urine Negative (Negative); Blood Urine Negative (Negative); Color Urine Yellow (Yellow); Glucose Urine UA Negative (Negative); Ketones Urine Negative (Negative); Leukocyte Esterase Ur Negative LEU/UL (Negative); Nitrate Urine Negative (Negative); Protein Urine Negative (Negative); Specific Grav Ur 1.015 (1.001-1.035); Urobilinogen Urine 0.2 mg/dL (<2.0); pH Urine 5.5 (5.0-9.0)
[2023-04-27 00:46] VITALS: BP 176/89; PULSE 59; RESP 20; O2SAT 100
[2023-04-27 00:48] LABS: Add Urine Microscopic? NO
[2023-04-27 01:01] VITALS: BP 182/84; PULSE 57; RESP 17; O2SAT 100
[2023-04-27 02:30] LABS: Amphetamine Screen Urine Negative (Negative); Barbiturate Screen Urine Negative (Negative); Benzodiazepines Screen Urine Negative (Negative); Cannabinoid Screen Urine Negative (Negative); Cocaine Screen Urine Negative (Negative); Methadone Screen Urine Negative (Negative); Opiate Screen Urine Negative (Negative); Phencyclidine Screen Urine Negative (Negative)
[2023-04-27 03:13] VITALS: BP 180/75; PULSE 72; RESP 17; O2SAT 98
--- NOTE | 2023-04-27 03:40 | PC.NURSE ---
Report called to [facility] at this time. Spoke w Bre. Pt transport on way.
[2023-04-27 03:42] VITALS: BP 169/76; PULSE 70; RESP 16; O2SAT 100
== END 2023-04-27 04:23 ==
PROVIDERS: Emergency Medicine; Emergency Provider Physician Assistant
DX: R40.4 Transient alteration of awareness (principal); E87.6 Hypokalemia; Z20.822 Contact with and (suspected) exposure to COVID-19; J44.9 Chronic obstructive pulmonary disease, unspecified; J96.11 Chronic respiratory failure with hypoxia; J96.12 Chronic respiratory failure with hypercapnia; I50.30 Unspecified diastolic (congestive) heart failure; I11.0 Hypertensive heart disease with heart failure; I27.20 Pulmonary hypertension, unspecified; G40.909 Epilepsy, unspecified, not intractable, without status epilepticus; E11.9 Type 2 diabetes mellitus without complications; E66.2 Morbid (severe) obesity with alveolar hypoventilation; Z68.23 Body mass index [BMI] 23.0-23.9, adult; K21.9 Gastro-esophageal reflux disease without esophagitis; F20.9 Schizophrenia, unspecified; F32.A Depression, unspecified; Z96.642 Presence of left artificial hip joint; Z86.718 Personal history of other venous thrombosis and embolism; Z86.73 Personal history of transient ischemic attack (TIA), and cerebral infarction without residual deficits; Z87.891 Personal history of nicotine dependence; Z90.49 Acquired absence of other specified parts of digestive tract; Z79.82 Long term (current) use of aspirin; R00.1 Bradycardia, unspecified; R94.31 Abnormal electrocardiogram [ECG] [EKG]
CPT/HCPCS: 36415; 36600; 70450; 71046; 80053; 80307; 81003; 82375; 82805; 83050; 83605; 83735; 83880; 84484; 85025; 86140; 87637; 93005; 96365; 96366; 99284; J3480; J7040

== ENCOUNTER 2023-05-01 18:34 | Emergency (ER) | payer OTHER, SELFPAY ==
[2023-05-01] VITALS (8 sets, daily range): BP systolic 158–197; BP diastolic 85–97; PULSE 61–66; RESP 15–19; TEMP 35.4; O2SAT 93–100
--- NOTE | ~2023-05-01 | CT_ITS ---
EXAMINATION: CT BRAIN W/O DATE: 05/01/2023 19:33 INDICATION: Altered mental status TECHNIQUE: Computed tomography (CT) of the head was performed without intravenous contrast. The dose- length product was 756.00 mGy-cm. Automated exposure control and iterative reconstruction technique w ere employed. COMPARISON: CT dated 04/26/2023 FINDINGS: Generalized atrophy. There are scattered mild periventricular and subcortical white matter changes, most likely related to small vessel ischemic disease (microangiopathy). There is intracrania l atherosclerosis. No ventriculomegaly or midline shift. Midline sagittal images demonstrate a normal corpus callosum, c raniovertebral junction and sella turcica. Basilar cisterns are patent. Paranasal sinuses and mastoids are pneumatized. No depressed skull fractures. IMPRESSION: 1. No acute intracranial abnormality. Reviewed, dictated and finalized at location A.
--- NOTE | ~2023-05-01 | XR_ITS ---
[id number] 05/01/2023 22:59 Indication: Right knee pain Procedure: 3 views right knee Comparison: 08/27/2022 Findings: There is severe tricompartment osteoarthritis of the right knee. Small joint effusion. Ther e is atherosclerosis. No acute fracture or traumatic malalignment. No foreign bodies. Impression: 1: Severe osteoarthritis with small knee effusion. Reviewed, dictated and finalized at location A. Impression: 1: Severe osteoarthritis with small knee effusion.
--- NOTE | ~2023-05-01 | XR_ITS ---
XR elbow LT 2V 05/01/2023 22:59 Indication: Left elbow pain Procedure: 2 views left elbow Comparison: No prior studies for comparison. Findings: Severe osteoarthritis of the left elbow with prominent marginal osteophytes. No acute fract ure is identified. There is a joint effusion, nonspecific. Impression: 1: Severe osteoarthritis. 2: Moderate joint effusion. Reviewed, dictated and finalized at location A. Impression: 1: Severe osteoarthritis. 2: Moderate joint effusion.
--- NOTE | ~2023-05-01 | XR_ITS ---
EXAMINATION: XR chest 1V portable 05/01/2023 19:38 INDICATION: Dyspnea PROCEDURE: AP portable chest COMPARISON: Comparison to multiple prior studies sequentially, with oldest reviewed study dated 08/25. FINDINGS: The lungs are clear. Cardiomegaly. There are no pleural effusions. There is no pneumothora x suspected. IMPRESSION: 1: NO ACUTE CARDIOPULMONARY DISEASE. Reviewed, dictated and finalized at location A.
--- NOTE | 2023-05-01 18:38 | ECG_ITS ---
Measurements Intervals [place] Rate: 62 P: 39 TN: 180 QRS: 21 QRSD: 84 T: 159 QT: 421 QTc: 429 Interpretive Statements SINUS RHYTHM POSSIBLE LEFT ATRIAL ENLARGEMENT INCOMPLETE RIGHT BUNDLE BRANCH BLOCK MINIMAL Q WAVES- INFERIOR LEADS NONSPECIFIC ST-T WAVE ABNORMALITY- DIFFUSE LEADS BORDERLINE ECG NO PREVIOUS ECG AVAILABLE FOR COMPARISON Electronically Signed On 05-01-2023 20:31:26 CDT by Willy Crawford D.O.
[2023-05-01 18:50] LABS: Glucose Point of Care 102 mg/dl (65-105)
--- NOTE | 2023-05-01 18:52 | ED.AMS ---
HPI - Altered Mental Status General Chief Complaint: Altered Mental Status Stated Complaint: UNRESPONSIVE S/P SYNCOPAL EPISODE Time Seen by Provider: 05/01/23 18:38 Source: EMS Mode of arrival: EMS Limitations: altered mental status History of Present Illness HPI narrative: 72-year-old with a history of seizure disorder, hypertension unknown psychiatric disorder was brought in from shelter with a complaint of being unresponsive for past 1-1/2 hour as per the EMS patient does have periods of unresponsiveness holds this episode is more than normal for her. Patient was given 2 mg of Narcan EN route no change. Upon arrival to the ER patient is unresponsive however she is able to maintain her respirations and the secretions I did do a sternal rub and patient is awake MD complaint: altered mental status Context: unknown Related Data Home Medications Medication Instructions Recorded Confirmed acetaminophen 500 mg tablet 1,000 mg TID 05/02/23 albuterol sulfate 90 mcg/actuation inhalation 05/02/23 aerosol inhaler amlodipine 5 mg tablet mg 05/02/23 aripiprazole 30 mg tablet mg 05/02/23 aspirin 81 mg tablet 81 mg PO DAILY 05/02/23 atorvastatin 40 mg tablet mg 05/02/23 benztropine 0.5 mg tablet mg 05/02/23 carbamazepine 200 mg tablet mg 05/02/23 carvedilol 3.125 mg tablet mg 05/02/23 divalproex 250 mg tablet,extended mg PO 05/02/23 release 24 hr divalproex 500 mg tablet,extended mg PO 05/02/23 release 24 hr docusate sodium 100 mg capsule mg PO 05/02/23 ergocalciferol (vitamin D2) 1,250 05/02/23 mcg (50,000 unit) capsule famotidine 20 mg tablet mg 05/02/23 ferrous sulfate 325 mg (65 mg mg 05/02/23 iron) tablet fluticasone propionate 110 inhalation 05/02/23 mcg/actuation HFA aerosol inhaler furosemide 40 mg tablet mg 05/02/23 gabapentin 400 mg capsule mg 05/02/23 guaifenesin 600 mg tablet, mg PO 05/02/23 extended release 12 hr (Mucinex) haloperidol 5 mg tablet mg 05/02/23 hydralazine 50 mg tablet mg 05/02/23 ipratropium 0.5 mg-albuterol 3 mg ml inhalation 05/02/23 (2.5 mg base)/3 mL nebulization soln magnesium oxide mg 05/02/23 olanzapine 2.5 mg tablet mg 05/02/23 potassium chloride 10 mEq meq PO 05/02/23 tablet,extended release(part/cryst) potassium chloride 20 mEq meq PO 05/02/23 tablet,extended release(part/cryst) sertraline 25 mg tablet mg 05/02/23 sertraline 50 mg tablet 100 mg 05/02/23 trazodone 50 mg tablet mg 05/02/23 vitamin B complex 1 tablet PO DAILY 05/02/23 Allergies Allergy/AdvReac Type Severity Reaction Status Date / Time Penicillins Allergy Unknown Verified 05/01/23 20:26 Review of Systems Review of Systems: ROS unobtainable: Yes unobtainable due to mental status Exam Narrative: GENERAL: Unresponsive, well-nourished, and in no acute distress. HEAD: Normocephalic, atraumatic. EYES: PERRLA and EOMI. pupils constricted ENT: Nares clear, no rhinorrhea or epistaxis. Mucous membranes moist. NECK: Supple. CHEST: Clear to auscultation. No respiratory distress. HEART: Regular rate and rhythm. No murmur heard. Normal peripheral pulses. ABDOMEN: Soft, nontender, nondistended, normal active bowel sounds. EXTREMITIES: Normal range of motion. No edema. SKIN: Warm, dry, no rash. NEURO: No focal deficits. Course Vital Signs Vital signs: Vital Signs Temperature 35.4 C L 05/01/23 18:37 Pulse Rate 62 05/01/23 18:37 Respiratory Rate 16 05/01/23 18:37 Blood Pressure 158/89 H 05/01/23 18:37 Pulse Oximetry 100 05/01/23 18:37 Oxygen Delivery Nasal Cannula 05/01/23 18:37 Oxygen Flow Rate 3 05/01/23 18:37 Temperature 36.5 C 05/02/23 00:47 Pulse Rate 71 05/02/23 02:15 Respiratory Rate 18 05/02/23 02:15 Blood Pressure 186/96 H 05/02/23 02:15 Pulse Oximetry 91 05/02/23 02:15 Oxygen Delivery Nasal Cannula 05/01/23 19:02 Oxygen Flow Rate 3 05/01/23 19:02 MDM - Altered Mental Status Differen
[2023-05-01] MEDS: SODIUM CHLORIDE 0.9% IV 1,000 ML 150 ML IV CONT (19:02)
[2023-05-01 19:04] LABS: Basophils Percent Auto 0.9 % (0.2-1.2); Eosinophils Absolute Auto 0.1 K/mm3 (0-0.3); Eosinophils Percent Auto 1.9 % (0-4.4); Hematocrit 39.7 % (37.0-47.0); Hemoglobin 12.5 g/dL (12.0-15.0); Immature Granulocyte Absolute 0.01 K/mm3 (0.00-0.031); Immature Granulocyte Percent A 0.2 % (0-0.5); Lymphocytes Absolute Auto 1.53 K/mm3 (0.9-3.2); Lymphocytes Percent Auto 36.3 % (18.3-44.2); Mean Corpuscular HGB Conc 31.5 g/dl (32-36); Mean Corpuscular Hemoglobin 32.6 pg (26-34); Mean Corpuscular Volume 103.7 fl (80-100); Mean Platelet Volume 11.7 fl (7.4-10.4); Monocytes Absolute Auto 0.6 K/mm3 (0.1-0.6); Monocytes Percent Auto 14.9 % (2.6-8.5); Neutrophils Absolute Auto 1.9 K/mm3 (1.3-6.7); Neutrophils Percent Auto 45.8 % (45.5-73.1); Platelet Count Result 187 k/mm3 (150-375); Red Blood Count 3.83 M/mm3 (4.2-5.4); Red Cell Distribution Width 12.7 % (11.5-14.5); White Blood Count 4.2 K/mm3 (4.5-10.0)
[2023-05-01 19:07] LABS: Alveolar/Arterial O2 Gradient 13.8 mmHg; Base Excess ABG 4.1 mEq/l (+/-2.0); Fractional Inspired Oxygen 32 %; HCO3 ABG 31.9 mEq/l (22.0-26.0); Oxygen Content ABG 18.6 %vol (16.0-22.0); Oxygen Saturation ABG 98.5 % (95.0-100.0); Oxyhemoglobin 97.5 % THb (90.0-100.0); PO2 ABG 140.8 mmHg (80.0-100.0); Total Hemoglobin 13.4 g/dL (12.0-18.0); pH ABG 7.323 (7.350-7.450)
[2023-05-01 19:10] LABS: PCO2 ABG 62.9 mmHg (35.0-45.0)
[2023-05-01 19:11] LABS: Device NASAL CANNULA; Modified Allen's Test Pass; Site Drawn LEFT RADIAL
[2023-05-01 19:18] LABS: Prothrombin Time 13.2 Seconds (11.1-14.7)
[2023-05-01 19:31] LABS: Valproic Acid 49.6 ug/mL (50-120)
[2023-05-01 19:38] LABS: Lactic Acid Reflex 1.1 mmol/L (0.7-2.0)
[2023-05-01 19:41] LABS: Appearance Urine Clear (Clear); Bilirubin Urine Negative (Negative); Blood Urine Negative (Negative); Color Urine Yellow (Yellow); Glucose Urine UA Negative (Negative); Ketones Urine Negative (Negative); Leukocyte Esterase Ur Negative LEU/UL (Negative); Nitrate Urine Negative (Negative); Protein Urine Negative (Negative); Specific Grav Ur 1.009 (1.001-1.035); Urobilinogen Urine 0.2 mg/dL (<2.0)
[2023-05-01 19:52] LABS: Add Urine Microscopic? NO
[2023-05-01 22:20] LABS: Alveolar/Arterial O2 Gradient < 0.0 mmHg; Base Excess ABG 6.1 mEq/l (+/-2.0); Fractional Inspired Oxygen 28 %; HCO3 ABG 34.1 mEq/l (22.0-26.0); Oxygen Content ABG 18.9 %vol (16.0-22.0); Oxygen Saturation ABG 98.4 % (95.0-100.0); Oxyhemoglobin 97.3 % THb (90.0-100.0); PO2 ABG 133.4 mmHg (80.0-100.0); PO2 FiO2 Ratio Arterial Blood 4.76 %; Total Hemoglobin 13.7 g/dL (12.0-18.0); pH ABG 7.336 (7.350-7.450)
[2023-05-01 22:23] LABS: Device NASAL CANNULA; Modified Allen's Test Pass; PCO2 ABG 65.2 mmHg (35.0-45.0); Site Drawn LEFT RADIAL
--- NOTE | 2023-05-01 22:28 | PC.NURSE ---
Twila, with [facility] called for update on patient
--- NOTE | 2023-05-01 23:09 | PC.NURSE ---
Assumed care of pt at this time. Pt A&Ox3, upright on stretcher, with c/o R knee and L arm pain.
[2023-05-02 00:06] VITALS: BP 203/102; PULSE 60; RESP 17; O2SAT 96
[2023-05-02] MEDS: hydrALAZINE HCL 20 MG/ML VIAL 10 MG IV PUSH ×2 (00:28→04:07)
[2023-05-02 00:47] VITALS: BP 184/83; PULSE 62; RESP 16; TEMP 36.5
--- NOTE | 2023-05-02 01:24 | PC.NURSE ---
Pt is a hard stick. This RN attempted x2 for CMP. Phlebotomy called.
[2023-05-02 01:57] LABS: Alanine Aminotransferase 11 U/L (6-35); Albumin Level 4.2 g/dL (3.5-5.1); Alkaline Phosphatase 76 U/L (38-126); Anion Gap 5 mmol/L (8-16); Aspartate Amino Transferase 24 U/L (14-36); Bilirubin,Total 0.6 mg/dL (0.2-1.3); Blood Urea Nitrogen 16 mg/dL (7-17); Carbon Dioxide 35 mmol/L (22-30); Chloride 102 mmol/L (98-107); Estimated Glomerular Filt Rate > 60; Glucose 83 mg/dL (65-110); Potassium 3.6 mmol/L (3.4-5.0); Sodium 142 mmol/L (137-145)
[2023-05-02 02:15] VITALS: BP 186/96; PULSE 71; RESP 18; O2SAT 91
[2023-05-02 03:32] VITALS: BP 193/101; PULSE 71; RESP 17; O2SAT 100
[2023-05-02 04:04] VITALS: BP 204/101; PULSE 66; RESP 18
[2023-05-05 00:39] LABS: Carbamazepine Tegretol 7.2 mcg/mL (4.0-12.0)
== END 2023-05-02 04:24 ==
PROVIDERS: Family Medicine; Emergency Provider Emergency Medicine
DX: R41.82 Altered mental status, unspecified (principal); R55 Syncope and collapse; G40.909 Epilepsy, unspecified, not intractable, without status epilepticus; I10 Essential (primary) hypertension; F99 Mental disorder, not otherwise specified; M17.11 Unilateral primary osteoarthritis, right knee; M19.022 Primary osteoarthritis, left elbow; Z79.82 Long term (current) use of aspirin; I45.10 Unspecified right bundle-branch block; R94.31 Abnormal electrocardiogram [ECG] [EKG]
CPT/HCPCS: 36415; 36600; 70450; 71045; 73070; 73560; 80053; 80156; 80164; 82805; 82948; 83605; 85025; 85610; 93005; 96361; 96374; 96376; 99284; J0360; J7030

== ENCOUNTER 2023-08-11 09:41 | Emergency (ER) | payer OTHER, SELFPAY ==
--- NOTE | ~2023-08-11 | XR_ITS ---
EXAMINATION: XR knee RT 3V DATE: 08/11/2023 11:31 INDICATION: Right knee injury. TECHNIQUE: 3 views of right knee were obtained. COMPARISON: Right knee radiographs 10/31/2022 FINDINGS: There is varus angulation at the knee. No fracture. There is severe osteoarthritis of media l compartment and mild osteoarthritis of lateral and patellofemoral compartments. No knee joint effus ion. IMPRESSION: 1. Severe right knee osteoarthritis. Reviewed, dictated and finalized at location A.
--- NOTE | ~2023-08-11 | CT_ITS ---
EXAMINATION: CT brain wo con DATE: 08/11/2023 11:15 INDICATION: Trauma with indeterminate head injury and lower extremity fracture. TECHNIQUE: Computed tomography (CT) of the head was performed without intravenous contrast. Sagittal and coronal reconstructions were performed. The mA was adjusted according to patient size. Iterative reconstruction technique was employed. The dose-length product was 605.33 mGy-cm. COMPARISON: head CT dated 05/01/2023 FINDINGS: No fracture. No acute intracranial hemorrhage, acute infarction or abnormal extra axial fluid collect ion. There is mild scattered white matter hypoattenuation consistent with chronic small vessel ischem ic disease. There is an empty sella. Ventricles are normal and symmetric. No mass/mass effect. Small right mastoid effusion. The orbits, paranasal sinuses and left mastoid air cells are normal. Intracra nial calcified cerebral atherosclerosis is noted. IMPRESSION: 1. No fracture or acute intracranial process. 2. Mild scattered white matter hypoattenuation consistent with chronic small vessel ischemic disease. Reviewed, dictated and finalized at location B. IMPRESSION: 1. No fracture or acute intracranial process. 2. Mild scattered white matter hypoattenuation consistent with chronic small ve ssel ischemic disease.
--- NOTE | ~2023-08-11 | XR_ITS ---
EXAMINATION: XR hip RT min 3V w AP pelvis DATE: 08/11/2023 11:32 INDICATION: Right hip injury. TECHNIQUE: An anteroposterior view the pelvis and 3 views of right hip were obtained. COMPARISON: Pelvis and hip radiographs 01/13/2018 FINDINGS: Bone alignment is normal. No acute fracture. There is plate and screw fixation of left femu r. There is mild right hip osteoarthritis and moderate left hip osteoarthritis. IMPRESSION: 1. Mild right hip osteoarthritis and moderate left hip osteoarthritis. Reviewed, dictated and finalized at location A.
--- NOTE | ~2023-08-11 | XR_ITS ---
EXAMINATION: XR tibia fibula LT 2V DATE: 08/11/2023 11:31 INDICATION: Left lower leg injury. TECHNIQUE: 2 views of left tibia and fibula on 3 radiographs were obtained. COMPARISON: None. FINDINGS: There are old healed fractures of the distal tibia and fibula. No acute fracture. There is mild left knee osteoarthritis. There is mild ankle joint osteoarthritis. No knee joint effusion. Part ially visualized is instrumentation of the left femur. IMPRESSION: 1. Mild polyarticular osteoarthritis. Reviewed, dictated and finalized at location A.
[2023-08-11 09:40] VITALS: BP 167/91; PULSE 65; RESP 16; TEMP 36.4; O2SAT 99
--- NOTE | 2023-08-11 10:57 | ED.GENADULT ---
HPI - General Adult General Chief complaint: Extremity Injury, Lower Stated complaint: leg fx Time Seen by Provider: 08/11/23 09:46 History of Present Illness HPI narrative: 72-year-old female presenting to the emergency department for evaluation after a suspected ground level fall. Patient began complaining of bilateral leg pain. X-ray was done at the facility showing a left fibular fracture, patient is complaining of right knee pain and the right leg is shortened and externally rotated, patient is unsure if she struck her head or not. Patient denies any other pain or injury. Related Data Home Medications Medication Instructions Recorded Confirmed benztropine 0.5 mg tablet 0.5 mg PO Q12H 01/24/20 06/02/23 carbamazepine 200 mg tablet 200 mg PO Q12H 01/24/20 06/02/23 hydralazine 100 mg tablet 100 mg PO TID 01/24/20 06/02/23 haloperidol 5 mg tablet 5 mg PO Q12H 01/25/20 06/02/23 sertraline 25 mg tablet 25 mg PO DAILY 01/25/20 06/02/23 sertraline 50 mg tablet 50 mg PO DAILY 01/25/20 06/02/23 trazodone 50 mg tablet 50 mg PO HS 01/25/20 06/02/23 carvedilol 3.125 mg tablet 3.125 mg PO Q12H 05/22/21 06/02/23 Artificial Tears 1 drp EACH EYE Q6H PRN Dry Eye(S) 09/10/21 06/02/23 atorvastatin 20 mg tablet 20 mg PO HS 09/10/21 06/02/23 clonidine HCl 0.3 mg tablet 0.3 mg PO Q12H 09/10/21 06/02/23 olanzapine 10 mg tablet 10 mg PO Q12H 09/10/21 06/02/23 gabapentin 400 mg capsule 400 mg PO TID 04/29/22 06/02/23 polyvinyl alcohol 1.4 % eye drops 1 drp EACH EYE Q6H PRN Dry Eye(S) 04/29/22 06/02/23 fluticasone propionate 110 1 puff inhalation BID 08/09/22 06/02/23 mcg/actuation HFA aerosol inhaler (Flovent HFA) nifedipine 60 mg tablet,extended 60 mg PO DAILY 08/09/22 06/02/23 release 24 hr (Procardia XL) nystatin-triamcinolone topical 1 applic topical Q12H 08/09/22 06/02/23 cream polyethylene glycol 3350 17 gram 17 g PO DAILY 08/09/22 06/02/23 oral powder packet divalproex 250 mg tablet,extended 750 mg PO HS 08/10/22 06/02/23 release 24 hr divalproex 500 mg tablet,extended 500 mg PO DAILY 08/10/22 06/02/23 release 24 hr aripiprazole 30 mg tablet 30 mg PO DAILY 08/25/22 06/02/23 aspirin 81 mg tablet 81 mg PO DAILY 08/25/22 06/02/23 docusate sodium 100 mg capsule 100 mg PO DAILY 08/25/22 06/02/23 ergocalciferol (vitamin D2) 1,250 1,250 mcg PO MONTHLY 08/25/22 06/02/23 mcg (50,000 unit) capsule famotidine 20 mg tablet 20 mg PO DAILY 08/25/22 06/02/23 ferrous sulfate 325 mg (65 mg 325 mg PO DAILY 08/25/22 06/02/23 iron) tablet doxycycline hyclate 100 mg tablet 100 mg PO Q12H 08/31/22 06/02/23 acetaminophen 500 mg tablet 1,000 mg TID 05/02/23 06/02/23 albuterol sulfate 90 mcg/actuation inhalation 05/02/23 06/02/23 aerosol inhaler amlodipine 5 mg tablet mg 05/02/23 06/02/23 aripiprazole 30 mg tablet mg 05/02/23 06/02/23 aspirin 81 mg tablet 81 mg PO DAILY 05/02/23 06/02/23 atorvastatin 40 mg tablet mg 05/02/23 06/02/23 benztropine 0.5 mg tablet mg 05/02/23 06/02/23 carbamazepine 200 mg tablet mg 05/02/23 06/02/23 carvedilol 3.125 mg tablet mg 05/02/23 06/02/23 divalproex 250 mg tablet,extended mg PO 05/02/23 06/02/23 release 24 hr divalproex 500 mg tablet,extended mg PO 05/02/23 06/02/23 release 24 hr docusate sodium 100 mg capsule mg PO 05/02/23 06/02/23 ergocalciferol (vitamin D2) 1,250 05/02/23 06/02/23 mcg (50,000 unit) capsule famotidine 20 mg tablet mg 05/02/23 06/02/23 ferrous sulfate 325 mg (65 mg mg 05/02/23 06/02/23 iron) tablet fluticasone propionate 110 inhalation 05/02/23 06/02/23 mcg/actuation HFA aerosol inhaler furosemide 40 mg tablet mg 05/02/23 06/02/23 gabapentin 400 mg capsule mg 05/02/23 06/02/23 guaifenesin 600 mg tablet, mg PO 05/02/23 06/02/23 extended release 12 hr (Mucinex) haloperidol 5 mg tablet mg 05/02/23 06/02/23 hydralazine 50 mg tablet mg 05/02/23 06/02/23 ipratropium 0.5 mg-albuterol 3 mg ml inhalation 05/02/23 06/02/23 (2.5 mg base)/3 mL nebulization soln magnesium oxide mg
[2023-08-11 11:45] VITALS: BP 172/89; PULSE 72; RESP 18; O2SAT 100
[2023-08-11 12:31] VITALS: BP 185/100; O2SAT 100
[2023-08-11 14:02] VITALS: BP 177/100; O2SAT 100
[2023-08-11 14:03] VITALS: O2SAT 100
[2023-08-11 15:30] VITALS: BP 194/94; PULSE 65; RESP 16; O2SAT 94
== END 2023-08-11 16:45 ==
PROVIDERS: Emergency Provider Emergency Medicine
DX: S09.90XA Unspecified injury of head, initial encounter (principal); M79.604 Pain in right leg; M79.605 Pain in left leg; I11.0 Hypertensive heart disease with heart failure; I50.30 Unspecified diastolic (congestive) heart failure; E11.9 Type 2 diabetes mellitus without complications; Z87.891 Personal history of nicotine dependence; W19.XXXA Unspecified fall, initial encounter
CPT/HCPCS: 70450; 73502; 73562; 73590; 99284

== ENCOUNTER 2024-04-21 18:10 | Emergency (ER) | payer OTHER, SELFPAY ==
--- NOTE | ~2024-04-21 | XR_ITS ---
XR knee RT 3V Ordering provider: Jon Travis MD History: . pain . Comparison: None. FINDINGS: BONES: No acute fracture or dislocation. JOINT SPACES: Severe narrowing of the medial compartment. Marginal osteophytes in the patella and kne e. SOFT TISSUES: Normal. IMPRESSION: No acute osseous abnormality right knee. Severe osteoarthritic changes. Reviewed, dictated and finalized at location A. ER ROOM ATTENDANT
--- NOTE | ~2024-04-21 | XR_ITS ---
XR chest 2V Ordering provider: Forrest Rene III, DO History: 73 years Female with . weakness . Comparison: May 01, 2023 FINDINGS: MEDIASTINUM: The cardiac silhouette is slightly enlarged. Prominent katlin. LUNGS: No infiltrates, effusions or pneumothorax. OTHER: No free air under the diaphragm. Degenerative changes of the spine with kyphosis centered at t he level of T12-L1. IMPRESSION: No acute cardiopulmonary pathology. Reviewed, dictated and finalized at location A. T MAGISTRATE
[2024-04-21 18:09] VITALS: PULSE 67; RESP 15; TEMP 36.8; O2SAT 100
[2024-04-21 18:19] VITALS: BP 170/86
--- NOTE | 2024-04-21 18:19 | ECG_ITS ---
Test Date: 2024-04-21 18:21:33 Measurements Intervals [place] Rate: 68 P: 52 [place]: 211 QRS: 33 QRSD: 69 T: 52 QT: 389 QTc: 415 Interpretive Statements SINUS RHYTHM WITH FIRST DEGREE AV BLOCK LOW QRS VOLTAGE IN PRECORDIAL LEADS [QRS DEFLECTION < 1.0 mV IN CHEST LEADS] NONSPECIFIC T-WAVE ABNORMALITY No previous ECG available for comparison Electronically Signed On 04-22-2024 16:22:14 NURSE OB by Deborah Kumar M.D.
[2024-04-21 18:33] LABS: Basophils Percent Auto 0.4 % (0.2-1.2); Eosinophils Absolute Auto 0.1 K/mm3 (0-0.3); Eosinophils Percent Auto 2.1 % (0-4.4); Hematocrit 36.7 % (37.0-47.0); Hemoglobin 11.8 g/dL (12.0-15.0); Immature Granulocyte Absolute 0.02 K/mm3 (0.00-0.031); Immature Granulocyte Percent A 0.4 % (0-0.5); Lymphocytes Absolute Auto 1.74 K/mm3 (0.9-3.2); Lymphocytes Percent Auto 32.6 % (18.3-44.2); Mean Corpuscular HGB Conc 32.2 g/dl (32-36); Mean Corpuscular Hemoglobin 32.7 pg (26-34); Mean Corpuscular Volume 101.7 fl (80-100); Mean Platelet Volume 9.9 fl (7.4-10.4); Monocytes Absolute Auto 0.9 K/mm3 (0.1-0.6); Monocytes Percent Auto 16.5 % (2.6-8.5); Neutrophils Absolute Auto 2.6 K/mm3 (1.3-6.7); Platelet Count Result 195 k/mm3 (150-375); Red Blood Count 3.61 M/mm3 (4.2-5.4); Red Cell Distribution Width 12.9 % (11.5-14.5); White Blood Count 5.3 K/mm3 (4.5-10.0)
[2024-04-21 18:43] LABS: Alanine Aminotransferase 12 U/L (6-35); Albumin Level 4.1 g/dL (3.5-5.1); Alkaline Phosphatase 82 U/L (38-126); Anion Gap 4 mmol/L (4-12); Aspartate Amino Transferase 21 U/L (14-36); Bilirubin,Total 0.3 mg/dL (0.2-1.3); Blood Urea Nitrogen 35 mg/dL (7-17); Calcium 8.8 mg/dL (8.4-10.2); Carbon Dioxide 37 mmol/L (22-30); Chloride 94 mmol/L (98-107); Estimated CRCL calculation 28 ml/min; Estimated Glomerular Filt Rate 33; Glucose 106 mg/dL (65-110); Sodium 135 mmol/L (137-145)
[2024-04-21 20:11] VITALS: BP 175/96; PULSE 70; RESP 15; O2SAT 100
[2024-04-21 20:24] LABS: Add Urine Microscopic? YES; Appearance Urine Turbid (Clear); Bacteria Urine 4+ /hpf; Bilirubin Urine Negative (Negative); Blood Urine 2+ (Negative); Color Urine Yellow (Yellow); Glucose Urine UA Negative (Negative); Hyaline Casts Urine Present /lpf; Ketones Urine Negative (Negative); Leukocyte Esterase Ur 3+ LEU/UL (Negative); Need Manual Microscopic Reviewed; Nitrate Urine Negative (Negative); Protein Urine 1+ mg/dL (Negative); RBC Urine >100 /hpf (0-2); Specific Grav Ur 1.015 (1.001-1.035); Squamous Epithelial Cell Urine None Seen /hpf (Few); Urobilinogen Urine 0.2 mg/dL (<2.0); WBC Urine >100 /hpf (0-3); pH Urine 5.5 (5.0-9.0)
[2024-04-21 20:32] LABS: Influenza A QL RT-PCR Negative (Negative); Influenza B QL RT-PCR Negative (Negative); RSV RNA, RT-PCR Negative (Negative); SARS-CoV-2 RNA PCR Negative (Negative)
--- NOTE | 2024-04-21 21:16 | ED_ITS ---
HPI - General Adult General Chief complaint: Weakness Stated complaint: weakness Time Seen by Provider: 04/21/24 19:30 History of Present Illness HPI narrative: Patient is a 71-year-old female who presents emergency department with chief complaint of lethargy patient is from [facility] and the patient has history of developmental delays and facility report that she has been more tired than usual and there were concerns for possible infection. The patient otherwise has no real complaint Related Data Home Medications ?Medication ?Instructions ?Recorded ?Confirmed ?Last Taken ?Type benztropine 0.5 mg tablet 0.5 mg PO Q12H 01/24/20 06/02/23 01/24/20 16:00 History carbamazepine 200 mg tablet 200 mg PO Q12H 01/24/20 06/02/23 01/24/20 16:00 History hydralazine 100 mg tablet 100 mg PO TID 01/24/20 06/02/23 01/24/20 08:00 History haloperidol 5 mg tablet 5 mg PO Q12H 01/25/20 06/02/23 01/24/20 16:00 History sertraline 25 mg tablet 25 mg PO DAILY 01/25/20 06/02/23 01/24/20 08:00 History sertraline 50 mg tablet 50 mg PO DAILY 01/25/20 06/02/23 01/24/20 08:00 History trazodone 50 mg tablet 50 mg PO HS 01/25/20 06/02/23 Unknown History carvedilol 3.125 mg tablet 3.125 mg PO Q12H 05/22/21 06/02/23 Unknown History Artificial Tears 1 drp EACH EYE Q6H PRN Dry Eye(S) 09/10/21 06/02/23 Unknown History atorvastatin 20 mg tablet 20 mg PO HS 09/10/21 06/02/23 Unknown History olanzapine 10 mg tablet 10 mg PO Q12H 09/10/21 06/02/23 Unknown History gabapentin 400 mg capsule 400 mg PO TID 04/29/22 06/02/23 Unknown History fluticasone propionate 110 1 puff inhalation BID 08/09/22 06/02/23 Unknown History mcg/actuation HFA aerosol inhaler (Flovent HFA) polyethylene glycol 3350 17 gram 17 g PO DAILY 08/09/22 06/02/23 Unknown History oral powder packet divalproex 250 mg tablet,extended 750 mg PO HS 08/10/22 06/02/23 Unknown History release 24 hr divalproex 500 mg tablet,extended 500 mg PO DAILY 08/10/22 06/02/23 Unknown History release 24 hr aripiprazole 30 mg tablet 30 mg PO DAILY 08/25/22 06/02/23 Unknown History aspirin 81 mg tablet 81 mg PO DAILY 08/25/22 06/02/23 Unknown History docusate sodium 100 mg capsule 100 mg PO DAILY 08/25/22 06/02/23 Unknown History ergocalciferol (vitamin D2) 1,250 1,250 mcg PO MONTHLY 08/25/22 06/02/23 Unknown History mcg (50,000 unit) capsule famotidine 20 mg tablet 20 mg PO DAILY 08/25/22 06/02/23 Unknown History ferrous sulfate 325 mg (65 mg 325 mg PO DAILY 08/25/22 06/02/23 Unknown History iron) tablet acetaminophen 500 mg tablet 1,000 mg TID 05/02/23 06/02/23 Unknown History albuterol sulfate 90 mcg/actuation inhalation 05/02/23 06/02/23 Unknown History aerosol inhaler amlodipine 5 mg tablet mg 05/02/23 06/02/23 Unknown History aripiprazole 30 mg tablet mg 05/02/23 06/02/23 Unknown History aspirin 81 mg tablet 81 mg PO DAILY 05/02/23 06/02/23 Unknown History atorvastatin 40 mg tablet mg 05/02/23 06/02/23 Unknown History benztropine 0.5 mg tablet mg 05/02/23 06/02/23 Unknown History carbamazepine 200 mg tablet mg 05/02/23 06/02/23 Unknown History carvedilol 3.125 mg tablet mg 05/02/23 06/02/23 Unknown History divalproex 250 mg tablet,extended mg PO 05/02/23 06/02/23 Unknown History release 24 hr divalproex 500 mg tablet,extended mg PO 05/02/23 06/02/23 Unknown History release 24 hr docusate sodium 100 mg capsule mg PO 05/02/23 06/02/23 Unknown History ergocalciferol (vitamin D2) 1,250 05/02/23 06/02/23 Unknown History mcg (50,000 unit) capsule famotidine 20 mg tablet mg 05/02/23 06/02/23 Unknown History ferrous sulfate 325 mg (65 mg mg 05/02/23 06/02/23 Unknown History iron) tablet fluticasone propionate 110 inhalation 05/02/23 06/02/23 Unknown History mcg/actuation HFA aerosol inhaler furosemide 40 mg tablet mg 05/02/23 06/02/23 Unknown History gabapentin 400 mg capsule mg 05/02/23 06/02/23 Unknown History guaifenesin 600 mg tablet, mg PO 05/02/23 06/02/23 Unknown History extended release 12 hr (Mucinex) haloperidol 5 mg tablet mg 05/02/23 06/02/23 Unknown History hydralazine 50 mg tablet mg 05/02/23 06/02/23 Unknown History ipratropium 0.5 mg-albuterol 3 mg ml inhalation 05/02/23 06/02/23 Unknown History (2.5 mg base)/3 mL nebulization soln magnesium oxide mg 05/02/23 06/02/23 Unknown History olanzapine 2.5 mg tablet mg 05/02/23 06/02/23 Unknown History potassium chloride 10 mEq meq PO 05/02/23 06/02/23 Unknown History tablet,extended release(part/cryst) potassium chloride 20 mEq meq PO 05/02/23 06/02/23 Unknown History tablet,extended release(part/cryst) sertraline 25 mg tablet mg 05/02/23 06/02/23 Unknown History sertraline 50 mg tablet 100 mg 05/02/23 06/02/23 Unknown History trazodone 50 mg tablet mg 05/02/23 06/02/23 Unknown History vitamin B complex 1 tablet PO DAILY 05/02/23 06/02/23 Unknown History mirabegron 50 mg tablet,extended 50 mg PO DAILY 12/14/23 Unknown History release 24 hr spironolactone 25 mg tablet 25 mg PO DAILY 12/14/23 Unknown History Allergies Allergy/AdvReac Type Severity Reaction Status Date / Time Penicillins Allergy Unknown Hives / Verified 12/14/23 09:14 Red Face Review of Systems 2 Review of Systems: A 10 system review of systems was completed on the patient and is negative except for what is stated in the HPI. Nursing and ancillary documentation was reviewed. [facility] Past Medical History Medical History Seizure disorder Pulmonary hypertension Severe on echo in August 2021 with an estimated PASP of 63 mmHg. Diastolic congestive heart failure EF 60 to 65% in August 2021. Obstructive sleep apnea treated with BiPAP Depression Chronic respiratory failure with hypoxia and hypercapnia Asthma-COPD overlap syndrome Obesity hypoventilation syndrome Hypertension Deep venous thrombosis Gastroesophageal reflux disease Type 2 diabetes mellitus Diet-controlled with a recent A1c of 5.2%. Migraine headache Cerebrovascular accident Schizophrenia Surgical History Surgical History History of cardiac catheterization History of cholecystectomy History of sinus surgery History of arthroscopy of right knee History of section, classical History of left hip replacement Family History Family History Mother Heart disease Cancer Cerebrovascular accident Sibling Pacemaker Social History Social History Social History: Surrogate medical decision maker: Carri Rangel. Code status: Full code. Smoking packs per day: 1 Smoking cigarettes per day: 20.0 Years smoked: 21 Smoking pack-years: 21.00 Smoking status: Former smoker Tobacco type: cigarettes Second hand tobacco smoke exposure: Yes Alcohol intake: never Substance use: never Substance use type: does not use Lack of Transportation: No Lack of Food: Never True Current Housing: I Have Housing Concerned About Future Housing: No Difficulty Paying Gas/Electric Bills: No Difficulty Paying for Meds: No Currently Unemployed: No Education: High School Diploma/GED Difficulty w/ Childcare or Family Care: No Living arrangements: correction Additional living arrangements comments: Resident at [facility]. Likes to color and do crafts. Has 4 children. Occupation/Education: retired Additional occupation/education comments: Disabled. Spiritual care concerns: No Agree to blood products: Yes Exam 2 Narrative: GENERAL: Well-appearing, well-nourished, and in no acute distress. HEAD: Normocephalic, atraumatic. EYES: PERRLA and EOMI. ENT: Nares clear, no rhinorrhea or epistaxis. Mucous membranes moist. NECK: Supple. CHEST: Clear to auscultation. No respiratory distress. HEART: Regular rate and rhythm. No murmur heard. Normal peripheral pulses. ABDOMEN: Soft, nontender, nondistended, normal active bowel sounds. EXTREMITIES: Normal range of motion tenderness palpation in the right knee. No edema. SKIN: Warm, dry, no rash. NEURO: No focal deficits. Alert and oriented x3. PSYCH: Normal mood and affect. Course Course Emergency Course: Differential diagnosis includes UTI, pneumonia, COVID, flu, RSV, electrolyte abnormality, dehydration Patient did have a slightly elevated creatinine at 1.55 patient had a white count of 5.3 urinalysis was turbid with 4+ bacteria greater than 100 whites 3+ leukocyte esterase chest x-ray was negative the patient also complained of right knee pain x-ray showed severe osteoarthritis The patient is currently afebrile and vital signs are stable the patient be given a dose of Rocephin in the emergency department and plan will be to discharge the patient back to her facility on antibiotics. Vital Signs Vital signs: Vital Signs Temperature 36.8 C 04/21/24 18:09 Pulse Rate 67 04/21/24 18:09 Respiratory Rate 15 04/21/24 18:09 Pulse Oximetry 100 04/21/24 18:09 Oxygen Delivery Nasal Cannula 04/21/24 18:09 Oxygen Flow Rate 3 04/21/24 18:09 Temperature 36.8 C 04/21/24 18:09 Pulse Rate 70 04/21/24 20:11 Respiratory Rate 15 04/21/24 20:11 Blood Pressure 175/96 H 04/21/24 20:11 Pulse Oximetry 100 04/21/24 20:11 Oxygen Delivery Nasal Cannula 04/21/24 18:09 Oxygen Flow Rate 3 04/21/24 18:09 Medical Decision Making Vital Signs Vital Signs: Vital Signs Temperature 36.8 C 04/21/24 18:09 Pulse Rate 67 04/21/24 18:09 Respiratory Rate 15 04/21/24 18:09 Pulse Oximetry 100 04/21/24 18:09 Oxygen Delivery Nasal Cannula 04/21/24 18:09 Oxygen Flow Rate 3 04/21/24 18:09 Temperature 36.8 C 04/21/24 18:09 Pulse Rate 70 04/21/24 20:11 Respiratory Rate 15 04/21/24 20:11 Blood Pressure 175/96 H 04/21/24 20:11 Pulse Oximetry 100 04/21/24 20:11 Oxygen Delivery Nasal Cannula 04/21/24 18:09 Oxygen Flow Rate 3 04/21/24 18:09 Lab Data 04/21/24 18:26 04/21/24 18:26 Labs: Lab Results 04/21/24 04/21/24 04/21/24 Range/Units 18:26 19:50 20:09 WBC 5.3 (4.5-10.0) K/mm3 RBC 3.61 L (4.2-5.4) M/mm3 Hgb 11.8 L (12.0-15.0) g/dL Hct 36.7 L (37.0-47.0) % MCV 101.7 H (80-100) fl MCH 32.7 (26-34) pg MCHC 32.2 (32-36) g/dl RDW 12.9 (11.5-14.5) % Plt Count 195 (150-375) k/mm3 MPV 9.9 (7.4-10.4) fl Immature Gran % (Auto) 0.4 (0-0.5) % Neut % (Auto) 48.0 (45.5-73.1) % Lymph % (Auto) 32.6 (18.3-44.2) % [place] % (Auto) 16.5 H (2.6-8.5) % Eos % (Auto) 2.1 (0-4.4) % Baso % (Auto) 0.4 (0.2-1.2) % Lymph # (Auto) 1.74 (0.9-3.2) K/mm3 [place] # (Auto) 0.9 H (0.1-0.6) K/mm3 Eos # (Auto) 0.1 (0-0.3) K/mm3 Baso # (Auto) 0.0 (0.0-0.1) K/mm3 Abs Immat Gran (auto) 0.02 (0.00-0.031) K/mm3 Absolute Neuts (auto) 2.6 (1.3-6.7) K/mm3 Absolute Nucleated RBC 0.000 (0.0-0.012) K/mm3 Nucleated RBC % 0.0 (0.0-0.2) % Sodium 135 L (137-145) mmol/L Potassium 4.0 (3.4-5.0) mmol/L Chloride 94 L (98-107) mmol/L Carbon Dioxide 37 H (22-30) mmol/L Anion Gap 4 (4-12) mmol/L BUN 35 H D (7-17) mg/dL Creatinine 1.55 H (0.7-1.0) mg/dL Estim Creat Clear Calc 28 ml/min Estimated GFR 33 L (59 - ) Glucose 106 (65-110) mg/dL Calcium 8.8 (8.4-10.2) mg/dL Total Bilirubin 0.3 (0.2-1.3) mg/dL AST 21 (14-36) U/L ALT 12 (6-35) U/L Alkaline Phosphatase 82 (38-126) U/L Total Protein 7.0 (6.3-8.2) g/dL Albumin 4.1 (3.5-5.1) g/dL Urine Color Yellow (Yellow) Urine Appearance Turbid H (Clear) Urine pH 5.5 (5.0-9.0) Ur Specific [place] 1.015 (1.001-1.035) Urine Protein 1+ H (Negative) mg/dL Urine Glucose (UA) Negative (Negative) mg/dL Urine Ketones Negative (Negative) mg/dL Ur Blood (Man) 2+ H (Negative) Urine Nitrate Negative (Negative) Urine Bilirubin Negative (Negative) Urine Urobilinogen 0.2 (<2.0) mg/dL Add Ur Microanalysis Reviewed Leukocyte Esterase Rfl 3+ H (Negative) JANNETTE/UL Urine RBC >100 H (0-2) /hpf Urine WBC >100 H (0-3) /hpf Ur Squamous Epith Cells None seen (Few) /hpf Urine Bacteria 4+ H /hpf Urine Casts 6-10 Hyaline Casts Present (None) /lpf Influenza A (RT-PCR) Negative (Negative) Influenza B (RT-PCR) Negative (Negative) RSV (RT-PCR) Negative (Negative) SARS-CoV-2 RNA (RT-PCR) Negative (Negative) Discharge Plan Discharge Clinical Impression: Urinary tract infection Patient Disposition: NH Shelter/Asst Living Condition: Stable Instructions: Antibiotic Form, Urinary Tract Infection in Women (ED) Patient Language: Yoruba Prescriptions: New cephalexin 500 mg capsule 500 mg PO Q12H 7 Days Qty: 14 0RF No Action mirabegron 50 mg tablet extended release 24 hr 50 mg PO DAILY spironolactone 25 mg tablet 25 mg PO DAILY ipratropium-albuterol 0.5 mg-3 mg(2.5 mg base)/3 mL solution for nebulization 3 ml inhalation QID Qty: 180 6RF polyethylene glycol 3350 17 gram Powder In Packet 17 g PO DAILY fluticasone propionate [Flovent HFA] 110 mcg/actuation HFA aerosol inhaler 1 puff INHALATION BID divalproex 500 mg tablet extended release 24 hr 500 mg PO DAILY Rx Instructions: Divalproex 500 mg am divalproex 250 mg tablet extended release 24 hr 750 mg PO HS Rx Instructions: Take 250 mg PO HS, in addition to 500 mg PO HS - to equal 750 mg HS amlodipine [Norvasc] 5 mg Tablet 10 mg PO DAILY Qty: 30 0RF furosemide 40 mg tablet atorvastatin 40 mg tablet benztropine 0.5 mg tablet ipratropium-albuterol 0.5 mg-3 mg(2.5 mg base)/3 mL solution for nebulization INHALATION haloperidol 5 mg tablet trazodone 50 mg tablet gabapentin 400 mg capsule amlodipine 5 mg tablet olanzapine 2.5 mg tablet acetaminophen 500 mg Tablet 1,000 mg TID carvedilol 3.125 mg tablet carbamazepine 200 mg tablet potassium chloride 20 mEq tablet,ER particles/crystals PO famotidine 20 mg tablet ferrous sulfate 325 mg (65 mg iron) tablet divalproex 500 mg tablet extended release 24 hr PO docusate sodium 100 mg capsule PO sertraline 25 mg tablet vitamin B complex [B Complex-Vitamin B12] Tablet 1 tablet PO DAILY hydralazine 50 mg tablet aspirin 81 mg Tablet 81 mg PO DAILY ergocalciferol (vitamin D2) 1,250 mcg (50,000 unit) capsule albuterol sulfate 90 mcg/actuation HFA aerosol inhaler INHALATION sertraline 50 mg tablet 100 mg fluticasone propionate 110 mcg/actuation HFA aerosol inhaler INHALATION aripiprazole 30 mg tablet divalproex 250 mg tablet extended release 24 hr PO potassium chloride 10 mEq tablet,ER particles/crystals PO guaifenesin [Mucinex] 600 mg Tablet Extended Release 12hr PO magnesium oxide 400 mg magnesium Tablet benztropine 0.5 mg tablet 0.5 mg PO Q12H carbamazepine 200 mg tablet 200 mg PO Q12H hydralazine 100 mg tablet 100 mg PO TID haloperidol 5 mg Tablet 5 mg PO Q12H sertraline 25 mg Tablet 25 mg PO DAILY Rx Instructions: GIVE WITH 50MG TO EQUAL 75MG DAILY sertraline 50 mg Tablet 50 mg PO DAILY Rx Instructions: take with 25mg to equal 75 mg daily trazodone 50 mg Tablet 50 mg PO HS albuterol sulfate [Proventil HFA] 90 mcg/actuation Hfa Aerosol Inhaler 2 puff inhalation Q6HRT PRN (Reason: Shortness Of Breath) Qty: 6.7 0RF carvedilol 3.125 mg Tablet 3.125 mg PO Q12H Artificial Tears 1 drp EACH EYE Q6H PRN (Reason: Dry Eye(S)) atorvastatin 20 mg tablet 20 mg PO HS olanzapine 10 mg tablet 10 mg PO Q12H gabapentin 400 mg Capsule 400 mg PO TID famotidine 20 mg tablet 20 mg PO DAILY ferrous sulfate 325 mg (65 mg iron) tablet 325 mg PO DAILY docusate sodium 100 mg capsule 100 mg PO DAILY ergocalciferol (vitamin D2) 1,250 mcg (50,000 unit) capsule 1,250 mcg PO MONTHLY Rx Instructions: 31st of every month aripiprazole 30 mg tablet 30 mg PO DAILY aspirin 81 mg Tablet 81 mg PO DAILY guaifenesin [Mucus Relief ER] 600 mg Tablet Extended Release 12hr 600 mg PO Q12HR Qty: 30 0RF magnesium oxide 400 mg (241.3 mg magnesium) Tablet 400 mg PO QAM Qty: 30 0RF potassium chloride 20 mEq packet 20 meq PO DAILY Qty: 30 0RF furosemide 40 mg tablet 40 mg PO DAILY Qty: 30 0RF Follow-up/Referrals: UNKNOWN,DOCTOR [Primary Care Provider] - Time of Disposition: :
--- OUTSIDE RECORDS SUMMARY | 2024-04-21 21:37 | XMS_ITS | Clinical Summary ---
Author Organization [facility] Address [address] [place] [id number] Care Team Providers Care Hot Room Attendant Name Role Phone Kolby Sung MD Primary Care Provider [phone] Colten Kimble MD Unavailable Allergies Active Allergy Reactions Criticality Noted Date Comments Penicillins Other (see Comments),Rash,Swelling Medium 08/22/2015 Medications divalproex (DEPAKOTE ER) 500 MG TABLET SR 24 HR 01/23/2023 Active sertraline (ZOLOFT) 25 MG Tablet 08/20/2023 Active sertraline (ZOLOFT) 100 MG Tablet Take 100 mg by mouth. Active spironolactone (ALDACTONE) 25 MG Tablet 08/11/2023 Active famotidine (PEPCID) 20 MG Tablet Take 20 mg by mouth daily. 06/27/2022 Active amLODIPine (NORVASC) 10 MG Tablet Take 10 mg by mouth. Active aspirin 81 MG Chewable Tablet Take 81 mg by mouth. Active docusate sodium (DOK) 100 MG Tablet 07/03/2021 Active ferrous sulfate 325 (65 Fe) MG Tablet Take 325 mg by mouth. 07/17/2022 Active magnesium oxide (MAG-OX) 400 MG Tablet Take 400 mg by mouth. Active polyethylene glycol (GLYCOLAX) 17 GM/SCOOP Powder Take 17 g by mouth. 07/22/2021 Active potassium chloride SA (KLORCON M) 10 MEQ Tablet Controlled Release 08/09/2023 Active benztropine (COGENTIN) 0.5 MG Tablet Take 0.5 mg by mouth. 07/27/2021 Active carvedilol (COREG) 3.125 MG Tablet 06/17/2021 Active Flovent HFA 110 MCG/ACT Aerosol take 1 Puff by inhalation. 07/07/2022 Active furosemide (LASIX) 40 MG Tablet Take 40 mg by mouth. 08/20/2021 Active acetaminophen (TYLENOL) 500 MG Tablet Take 1,000 mg by mouth. Active haloperidol (HALDOL) 5 MG Tablet 08/07/2021 Active hydrALAZINE 50 MG Tablet 08/23/2023 Active albuterol 108 (90 Base) MCG/ACT Aerosol Solution take 2 Puffs by inhalation. 06/20/2021 Active gabapentin (NEURONTIN) 400 MG Capsule 07/22/2021 Active atorvastatin (LIPITOR) 40 MG Tablet Take 40 mg by mouth. 06/12/2022 Active hydrOXYzine (ATARAX) 25 MG Tablet Take 25 mg by mouth. Active oxybutynin (DITROPAN-XL) 10 MG TABLET SR 24 HRIndications:Urg e urinary incontinence Take 1 Tablet by mouth daily. 90 Tablet 12/21/2023 Active Immunizations Immunization Administration Dates Next Due Covid-19, Mrna, Lnp-s, Pf, 30 Mcg/0.3 Ml Dose (P fizer) 11/30/2020 Influenza Vaccine, Quadrivalent, PF 11/25/2014 Pneumococcal Vaccine Adult - 23 Valent 4 Social History Tobacco Use Types Packs/Day Years Used Date Smoking Tobacco: Never Smokeless Tobacco: Never Tobacco Cessation:Counseling Given: Not Answered Alcohol Use Standard Drinks/Week Comments Not Currently 0 (1 standard drink = 0.6 oz pur e alcohol) Sexually Active Control Partners Comments Not Currently Comments No Sex and Gender Information Value Date Recorded Sex Assigned at Not on file Legal Sex Female 7:41 PM CDT Gender Identity Not on file Sexual Orientation Not on file Last Filed Vital Signs Vital Sign Reading Time Taken Comments Blood Pressure 165/96 12/03/2023 9:40 AM CDT Pulse 69 12/03/2023 9:40 AM CDT Temperature - - Respiratory Rate 20 12/03/2023 9:40 AM CDT Oxygen Saturation 100% 12/03/2023 9:40 AM CDT Inhaled Oxygen Concentration - - Weight 121.6 kg (268 lb 1.6 oz) 12/03/2023 9:40 AM CDT Height 152.4 cm (5') 12/03/2023 9:40 AM CDT Body Mass Index 52.36 12/03/2023 9:40 AM CDT Plan of Treatment Upcoming Encounters Date Type Department Care Team (Late st Contact Info) Description 06/02/2024 10:00 AM CDT Office Visit [facility] [address] [place] [phone] Colten Kimble MD [address], [facility] [address] [place] [address] Health Maintenance Due Date Last Done Comments DEXA Bone Density 1950 Hepatitis C Virus (HCV) Screening 1950 Mammogram 1950 TdaP Immunization 1950 Colonoscopy 09/01/1996 Colorectal Cancer Screening 09/01/1996 Cologuard 09/01/2001 Immunochemical Fecal Occult Blood 09/01/2001 Zoster Immunization (1 of 2) 09/01/2001 Respiratory Syncytial Virus (RSV) Immunization (Adult) (1 - Risk 60-74 years 1-dose series) 2011 Pneumococcal Immunization (50+ years) (2 of 2 - PCV) 05/15/2014 05/15/2013 Influenza Immunization (#1) 2023 11/25/2014 SARS-COV-2 Immunization ( season) 2023 11/27/2022, 01/03/2022, 08/31/2021, Additional history exists Hepatitis B Immunization Aged Out No longer eligible based on patient's age to complete this topic Meningococcal Immunization (ACWY) Aged Out No longer eligible based on patient's age to complete this topic Rotavirus Immunization Aged Out No lo nger eligible based on patient's age to complete this topic Insurance MEDICAID [employer] Care Teams Hot Room Attendant Relationship Specialty Start Date End Date Kolby Sung MD [address] [facility] [address] [place] [address] PCP - General Internal Medicine 10/15/23 Colten Kimble MD [address] [facility] [address] [place] [address] Consulting Physician Urology 10/15/23
--- OUTSIDE RECORDS SUMMARY | 2024-04-21 21:37 | XMS_ITS | Clinical Summary ---
Author Organization [facility] Address [address] [place] [address] Care Team Providers Care Patient Access Name Role Phone Unavailable Primary Care Provider Unavailabl e Allergies Active Allergy Reactions Criticality Noted Date Comments Penicillins Other (See Comments) 06/26/2021 Medications acetaminophen (TYLENOL) 500 mg tablet Take 500 mg by mouth every 4 hours as needed. Active albuterol sulfate 90 mcg/Actuation inhaler 2 Active ARIPiprazole (ABILIFY) 30 mg tablet 2 Active aspirin (NICKY CHEWABLE) 81 mg Tablet, Chewable Take 81 mg by mouth daily. Active atorvastatin (LIPITOR) 20 mg tablet 2 Active benztropine (COGENTIN) 0.5 mg tablet 2 Active carBAMazepine (TEGretol) 200 mg tablet 2 Active carvediloL (COREG) 3.125 mg tablet 2 Active cloNIDine HCL (CATAPRES) 0.3 mg tablet 2 Active divalproex (DEPAKOTE) 500 mg delayed release tablet 2 Active docusate sodium (COLACE) 100 mg capsule 2 Active DOK 100 mg Tablet 2 Active ergocalciferol (VITAMIN D2) 50,000 unit capsule 2 Active famotidine (PEPCID) 20 mg tablet famotidine 20 mg tablet Active furosemide (LASIX) 40 mg tablet 2 Active gabapentin (NEURONTIN) 400 mg capsule 2 Active glucagon (GLUCAGEN HYPOKIT) 1 mg Recon Soln Inject 1 mg by subcutaneous injection. Active haloperidoL (HALDOL) 10 mg tablet 2 Active haloperidoL (HALDOL) 5 mg tablet 2 Active hydrALAZINE (APRESOLINE) 100 mg Tablet tablet 2 Active Proctosol HC 2.5 % cream with perineal applicator 2 Active ibuprofen (MOTRIN) 800 mg tablet 2 Active ipratropium-albu teroL (DUONEB) 0.5 mg-3 mg(2.5 mg base)/3 mL Solution for Nebulization 2 Active insulin lispro (HumaLOG) 100 unit/mL pen syringe insulin lispro (U-100) 100 unit/mL subcutaneous pen Active magnesium hydroxide (MILK OF MAGNESIA) 400 mg/5 mL suspension Take 30 mL by mouth 1 time daily as needed. Active OLANZapine (ZyPREXA) 10 mg tablet 2 Active omeprazole (PriLOSEC) 20 mg Capsule, Delayed Release(E.C.) 2 Active ondansetron (ZOFRAN) 4 mg Tablet Take 4 mg by mouth every 8 hours as needed. Active oxybutynin chloride (DITROPAN XL) 5 mg Extended Release 24 hour tablet Take 10 mg by mouth daily. Active polyethylene glycol 3350 (MIRALAX) 17 gram/dose Powder 2 Active Klor-Con 10 10 mEq Extended Release tablet 2 Active potassium chloride (KLOR-CON) 20 mEq Extended Release tablet 2 Active pravastatin (PRAVACHOL) 20 mg tablet Take 20 mg by mouth. Active raNITIdine (ZANTAC) 150 mg tablet Take 150 mg by mouth daily. Active sertraline (ZOLOFT) 50 mg tablet Take 125 mg by mouth daily. 2 Active traZODone (DESYREL) 50 mg tablet 2 Active tolterodine (DETROL) 2 mg tablet Take 2 mg by mouth daily. Active simvastatin (ZOCOR) 40 mg tablet simvastatin 40 mg tablet Active ferrous sulfate 325 mg (65 mg iron) tablet 3 Active ipratropium bromide (ATROVENT) 0.02 % Solution 3 Active hydrOXYzine HCL (ATARAX) 25 mg tablet Take 25 mg by mouth 3 times daily as needed for Itching. Active amLODIPine (NORVASC) 10 mg tablet Take 10 mg by mouth. Active traMADoL (ULTRAM) 50 mg tablet Take 50 mg by mouth every 6 hours as needed for Pain. Active Active Problems Problem Noted Date Diagnosed Date Leukopenia 06/26/2021 Chronic anemia 06/26/2021 Encounters Date Type Department Care Team Description 04/20/2024 External Device Data [facility] Provider, Abstract 04/06/2024 External Device Data [facility] Provider, Abstract 03/10/2024 External Device Data [facility] Provider, Abstract from Last 3 Months Family History Relation Name Status Comments Brother 1 Brother 2 Alive Daughter Alive Father Mother Sister 1 Alive Sister 2 Alive Son 1 Alive Son 2 Alive Son 3 Alive Social History Tobacco Use Types Packs/Day Years Used Date Smoking Tobacco: Never Tobacco Cessation:Counseling Given: Not Answered Alcohol Use Standard Drinks/Week Comments Never 0 (1 standard drink = 0.6 oz pur e alcohol) Comments Unknown Sex and Gender Information Value Date Recorded Sex Assigned at Not on file Legal Sex Female 3:25 PM CDT Gender Identity Not on file Sexual Orientation Not on file Last Filed Vital Signs Vital Sign Reading Time Taken Comments Blood Pressure 161/97 01/20/2024 10:02 AM [employer] Pulse 71 01/20/2024 10:02 AM [employer] Temperature 36.3 C (97.3 F) 01/20/2024 10:02 AM [employer] Respiratory Rate 16 01/20/2024 10:02 AM [employer] Oxygen Saturation 98% 01/20/2024 10:02 AM [employer] Inhaled Oxygen Concentration - - Weight 81.6 kg (180 lb) 01/20/2024 10:02 AM [employer] Height 154.9 cm (5' 1 ) 11/21/2021 11:32 AM CDT Body Mass Index 34.01 11/21/2021 11:32 AM CDT Plan of Treatment Upcoming Encounters Date Type Department Care Team (Late st Contact Info) Description 07/21/2024 10:00 AM CDT Office Visit [facility] Oncology and Hematology - [place] [address] [place] [address] Carrington Matta MD [address] [place] [address] Health Maintenance Due Date Last Done Comments DTAP/TDAP/TD VACCINES (1 - Tdap) 09/01/1970 COLORECTAL SCREENING 09/01/1996 Colorectal Cancer Screening 09/01/1996 FIT-DNA Q 3 years 09/01/1996 FIT/FOBT Q 1 year 09/01/1996 Flex Sig/CT Colonography Q 5 years 09/01/1996 ZOSTER VACCINE (1 of 2) 09/01/2001 PNEUMOCOCCAL VACCINE 50+ YEARS (2 of 2 - PCV) 05/16/19 15 05/15/2013 OSTEOPOROSIS SCREENING 09/01/2016 BREAST CANCER SCREENING 09/04/2022 09/04/2021 INFLUENZA VACCINE (#1) 2023 11/25/2014 COVID-19 Vaccine (2 - season) 2023 RSV VACCINE (60+ or ) (1 - 1-dose 75+ series) 09/01/2026 Procedures Procedure Name Priority Date/Time Associated Diagnosis Comments MAMMO SCREENING BILAT Routine 09/04/2021 from Last 3 Months or Most Recently Relevant to Health Maintenance Results * MAMMO SCREENING BILAT (09/04/2021) Anatomical Region Laterality Modality Breast Bilateral Other us Abstract Provider MAMMO ORDERABLES Final Result from Last 3 Months or Most Recently Relevant to Health Maintenance Insurance [facility] MEDICAID
--- OUTSIDE RECORDS SUMMARY | 2024-04-21 21:37 | XMS_ITS | CONTINUITY OF CARE DOCUMENT ---
Author Name sonny dennis Address Unknown Organization [facility] Address [address] [place] [address] Phone [phone] Care Team Providers Care Employee Health Nurse Name Role Phone Kevin Crawford MD Unavailable Kevin Crawford MD Unavailable [phone] [employer]ANCE [employer] Payer name Policy type / Coverage type [place] [employer] [place] [employer] (2) Medicaid [id number]
--- OUTSIDE RECORDS SUMMARY | 2024-04-21 21:37 | XMS_ITS | Encounter Summary ---
Author Organization [facility] Address [address] [place] [address] Care Team Providers Care Caisson Worker Name Role Phone Unavailable Primary Care Provider Unavailabl e Encounter Details Date Type Department Care Team (Late st Contact Info) Description 04/20/2024 External Device Data [facility] Provider, Abstract NO ADDRESS ON FILE Social History Tobacco Use Types Packs/Day Years Used Date Smoking Tobacco: Never Alcohol Use Standard Drinks/Week Comments Never 0 (1 standard drink = 0.6 oz pur e alcohol) Comments Unknown Sex and Gender Information Value Date Recorded Sex Assigned at Not on file Legal Sex Female 3:25 PM CDT Gender Identity Not on file Sexual Orientation Not on file documented as of this encounter Plan of Treatment Upcoming Encounters Date Type Department Care Team (Late st Contact Info) Description 07/21/2024 10:00 AM CDT Office Visit [facility] Oncology and Hematology - [place] [address] [facility] [address] [place] [address] Carrington Matta MD [address] [place] [address] documented as of this encounter Visit Diagnoses Not on filedocumented in this encounter
--- OUTSIDE RECORDS SUMMARY | 2024-04-21 21:37 | XMS_ITS | Data Portability ---
Author Organization [facility] [place] Address [address] [place] [address] Assessment Encounter Date Assessment Date Assessment LastModified by Organization Details LastModified Time 11/22/2019 11/22/2019 Annual gynecological exam performed. Patient will come back in a year unless there are new symptoms. [email or web address] Not available 11/22/2019 13:41:17 Plan of Treatment Reminders Order Date Submit Date Provider Last Modified By Organization Details Last Modified Time Details Appointments None recorded. Lab None recorded. Referral None recorded. Procedures None recorded. Surgeries None recorded. Imaging None recorded. Medication Orders metronidazo le 500 mg tablet 2021 022 JOJO Not available 2 16:25:23 Flagyl 500 mg tablet 2020 021 Not available 2 11:29:29 Diflucan 150 mg tablet 2019 020 Not available 1 12:18:24 nystatin-tr iamcinolone 100,000 unit/gram-0 .1 % topical ointment 2019 020 [email or web address] Not available 0 16:18:17 Patient TargetsNo targets recorded. Patient InstructionsNo instructions recorded. Reason for Referral None Reported. Results Created Date Observation Date Name Description Value Unit Range Abnormal Flag Note LastModifiedBy Organization Detail LastModifiedTime 11/22/19 20 11/24/2019 bacte rial vagin osis + vagin itis panel , vagin al elbert sp. Not Detect ed normal Trich omona s vagin reggie: DNA testi ng perfo rmed by Trans [employer] earl Ampli ficat ion (TMA) These resul ts shoul d be inter prete d in light of all clini rachel and labor atory findi ngs. This assay is highl y accur ate, but rare false posit maximus and negat maximus resul ts may occur . Posit maximus resul ts in low preva lence popul ation s may requi re re-ev aluat ion. A negat maximus resul t does not precl ude a possi ble infec tion due to a speci men inade quacy or sampl ing error . Test perfo rmed by [facility], d/b/a [facility], [address], [place] [address] , Nithin Corona ra, DO, Labor atory Direc tor. Mark ceja a vagin reggie, Verito da speci es: Genom ic DNA is isola earl from patie nt speci mens by stand gail labor atory techn iques and estevan zed using custo m OpenA rray plate s, perfo rmed on the Quant Studi o 12K Flex Real Time PCR syste m. A posit maximus resul t is provi ded for patho genic bacte jose luis, virus and/o r funga l speci es based on detec tion of ampli ficat ion produ cts. Cheri l vagin al david resul ts of Cheri l or [place] earl are deter mined by calcu latin g the ratio of the organ ism to the total bacte jose luis prese nt in the speci men, and darin ring that ratio to a PathG roup patie nt popul ation . Overa ll resul ts of Cheri l, Borde rline and Abnor mal are deter mined using a proba bilit y model which was devel oped by an exten sive estevan sis and integ ratio n of clini rachel thres holds for marke r organ isms on a large set of sympt omati c & asymp tomat ic speci mens. Patie nt popul ation s with diffe rent demog raphi cs from the PathG roup model popul ation may have diffe rent indic ator organ isms with diffe rent relat maximus ratio s, which would influ ence the final resul ts. Resul ts shoul d be inter prete d in the osei xt of all clini rachel and labor atory findi ngs. The test was devel oped and its perfo rmanc e danilo cteri stics deter mined by [employer], [employer] d/b/a [facility]. It has not been clear ed or appro demetra by the U.S. Food and Drug Admin istra tion. The FDA has deter mined that such clear ance or appro yevgeniy is not neces kimberly. Perti nent refer ence inter vals are avail able from the labor atory on reque st. Test( s) perfo rmed by [facility] [employer], [employer], d/b/a Path [facility], [address] [place] [address] , Nithin Corona ra, DO, Labor atory Direc tor. Not Available [facility] ([facility]) [address], [place], [address], 11/24/2019 17:09:25 11/22/19 20 11/24/2019 bacte rial vagin osis + vagin itis panel , vagin al gardnerella vaginalis Detect ed abnormal Trich omona s vagin reggie: DNA testi ng perfo rmed by Trans cript ion Media earl Ampli ficat ion (TMA) These resul ts shoul d be inter prete d in light of all clini rachel and labor atory findi ngs. This assay is highl y accur ate, but rare false posit maximus and negat maximus resul ts may occur . Posit maximus resul ts in low preva lence popul ation s may requi re re-ev aluat ion. A negat maximus resul t does not precl ude a possi ble infec tion due to a speci men inade quacy or sampl ing error . Test perfo rmed by [facility] [employer], [employer], d/b/a [facility] roued, [address], [place] [address] , Nithin Corona ra, DO, Labor atory Direc tor. Mark ceja a mckenziein reggie, Verito da speci es: Genom ic DNA is isola earl from patie nt speci mens by stand gail labor atory techn iques and estevan zed using custo m OpenA rray plate s, perfo rmed on the Quant Studi o 12K Flex Real Time PCR syste m. A posit maximus resul t is provi ded for patho genic bacte jose luis, virus and/o r funga l speci es based on detec tion of ampli ficat ion produ cts. Cheri l vagin al david resul ts of Cheri l or [place] earl are deter mined by calcu latin g the ratio of the organ ism to the total bacte jose luis prese nt in the speci men, and darin ring that ratio to a PathG roup patie nt popul ation . Overa ll resul ts of Cheri l, Borde rline and Abnor mal are deter mined using a proba bilit y model which was devel oped by an exten sive estevan sis and integ ratio n of clini rachel thres holds for marke r organ isms on a large set of sympt omati c & asymp tomat ic speci mens. Patie nt popul ation s with diffe rent demog raphi cs from the PathG roup model popul ation may have diffe rent indic ator organ isms with diffe rent relat maximus ratio s, which would influ ence the final resul ts. Resul ts shoul d be inter prete d in the osei xt of all clini rachel and labor atory findi ngs. The test was devel oped and its perfo rmanc e danilo cteri stics deter mined by [facility] d/b/a [facility]oup. It has not been clear ed or appro demetra by the U.S. Food and Drug Admin istra tion. The FDA has deter mined that such clear ance or appro yevgeniy is not neces kimberly. Perti nent refer ence inter vals are avail able from the labor atory on reque st. Test( s) perfo rmed by [facility], [employer], d/b/a [employer] [facility], [address], [place] [address] , Nithin Corona ra, DO, Labor atory Direc tor. Not Available [facility] ([facility]) [address], [place], [address], 11/24/2019 17:09:25 11/22/19 20 11/24/2019 bacte rial vagin osis + vagin itis panel , vagin al trichomonas vaginalis, aptima (panther) NOT DETECT ED normal Trich omona s vagin reggie: DNA testi ng perfo rmed by Trans cript ion Media earl Ampli ficat ion (TMA) These resul ts shoul d be inter prete d in light of all clini rachel and labor atory findi ngs. This assay is highl y accur ate, but rare false posit maximus and negat maximus resul ts may occur . Posit maximus resul ts in low preva lence popul ation s may requi re re-ev aluat ion. A negat maximus resul t does not precl ude a possi ble infec tion due to a speci men inade quacy or sampl ing error . Test perfo rmed by [facility] [employer], [employer], d/b/a Estefani hewitt, [address], [place] [address] , Nithin Corona ra, , Labor atory Direc tor. Gardn erell a vagin reggie, Verito da speci es: Genom ic DNA is isola earl from patie nt speci mens by stand gail labor atory techn iques and estevan zed using custo m OpenA rray plate s, perfo rmed on the Quant Studi o 12K Flex Real Time PCR syste m. A posit maximus resul t is provi ded for patho genic bacte jose luis, virus and/o r funga l speci es based on detec tion of ampli ficat ion produ cts. Cheri l vagin al david resul ts of Cheri l or [place] earl are deter mined by calcu latin g the ratio of the organ ism to the total bacte jose luis prese nt in the speci men, and darin ring that ratio to a PathG roup patie nt popul ation . Overa ll resul ts of Cheri l, Borde rline and Abnor mal are deter mined using a proba bilit y model which was devel oped by an exten sive estevan sis and integ ratio n of clini rachel thres holds for marke r organ isms on a large set of sympt omati c & asymp tomat ic speci mens. Patie nt popul ation s with diffe rent demog raphi cs from the PathG roup model popul ation may have diffe rent indic ator organ isms with diffe rent relat maximus ratio s, which would influ ence the final resul ts. Resul ts shoul d be inter prete d in the osei xt of all clini rachel and labor atory findi ngs. The test was devel oped and its perfo rmanc e danilo cteri stics deter mined by [employer], [employer] d/b/a [employer]. It has not been clear ed or appro demetra by the U.S. Food and Drug Admin istra tion. The FDA has deter mined that such clear ance or appro yevgeniy is not neces kimberly. Perti nent refer ence inter vals are avail able from the labor atory on reque st. Test( s) perfo rmed by [facility], [employer], d/b/a [facility]oup, [address], [place] [address] , Nithin Coorna ra, DO, Labor atory Direc tor. Not Available [facility] ([facility]) [address], [place], [address], 11/24/2019 17:09:25 09/20/19 21 09/19/2020 CT/GC AND TRICH OMONA S VAGIN REGGIE (RRNA ), SWAB chlamydia trachomatis, PCR Negati ve negati ve Not Available [facility] (Lab) [address], [place], [address], 09/20/2020 14:17:59 09/20/19 21 09/19/2020 CT/GC AND TRICH OMONA S VAGIN REGGIE (RRNA ), SWAB neisseria gonorrhoeae, PCR Negati ve negati ve Not Available [facility] (Lab) [address], [place], [address], 09/20/2020 14:17:59 09/20/19 21 09/19/2020 CT/GC AND TRICH OMONA S VAGIN REGGIE (RRNA ), SWAB trichomonas vaginalis ribosomal RNA (rrna) Negati ve negati ve Not Available [facility] (Lab) [address], [place], [address], 09/20/2020 14:17:59 09/20/19 21 09/19/2020 VAGIN ITIS/ VAGIN OSIS, DNA PROBE elbert sp. detection, direct probe Negati ve negati ve Not Available [facility] (Lab) [address], [place], [address], 09/20/2020 14:17:59 09/20/19 21 09/19/2020 VAGIN ITIS/ VAGIN OSIS, DNA PROBE gardnerella vag. detection, direct probe Negati ve negati ve Not Available [facility] (Lab) [address], [place], [address], 09/20/2020 14:17:59 09/20/19 21 09/19/2020 VAGIN ITIS/ VAGIN OSIS, DNA PROBE trichomonas vag. detection, direct probe Negati ve negati ve Not Available [facility] (Lab) [address], [place], [address], 09/20/2020 14:17:59 04/10/19 22 04/10/2021 VAGIN ITIS/ VAGIN OSIS, DNA PROBE elbert sp. detection, direct probe Negati ve negati ve Not Available [facility] (Lab) [address] [place], [address], 04/11/2021 12:03:11 04/10/19 22 04/10/2021 VAGIN ITIS/ VAGIN OSIS, DNA PROBE gardnerella vag. detection, direct probe Negati ve negati ve Not Available [facility] (Lab) [address] [place], [address], 04/11/2021 12:03:11 04/10/19 22 04/10/2021 VAGIN ITIS/ VAGIN OSIS, DNA PROBE trichomonas vag. detection, direct probe Negati ve negati ve Not Available [facility] (Lab) [address] [place], [address], 04/11/2021 12:03:11 Result Notes None recorded. Medical Equipment None Reported. Allergies Allergen ID Allergen Name Allergen Category Reaction Reaction Severity Criticality Documentation Date Start Date Code Code System Note Provider Name and Address Organization Details Recorded Time 2280 Product containin g penicilli n (product) medicatio n Not available Not available Not available 11/22/2019 16111 8001 SNDAY Villasenor [facility] [place] - [facility] 0 13:41:37 Medications Name Sig Start Date Stop Date Status Note LastModified by Organization Details LastModified Time furosemide 40 mg tablet active Not Available Not Available Not Available fluconazole 100 mg tablet 09/19 completed Not Available Not Available Not Available metformin 500 mg tablet active Not Available Not Available Not Available doxycycline hyclate 100 mg capsule active Not Available Not Available N ot Available benztropine 0.5 mg tablet active Not Available Not Available Not Available ipratropium 0.5 mg-albutero l 3 mg (2.5 mg base)/3 mL nebulizatio n soln active Not Available Not Available Not Available haloperidol 5 mg tablet 04/10 completed Not Available Not Available Not Available Klor-Con 10 mEq tablet,exte nded release active Not Available Not Available Not Available clindamycin HCl 300 mg capsule active Not Available Not Available Not Available trazodone 50 mg tablet active Not Available Not Available Not Available azithromyci n 250 mg tablet 09/19 completed Not Available Not Available Not Available ibuprofen 800 mg tablet active Not Available Not Available Not Available fluconazole 150 mg tablet Take 1 tablet every day by oral route for 1 day. 09/19 completed Not Available Not Available Not Available metronidazo le 0.75 % (37.5 mg/5 gram) vaginal gel Insert 1 applicato rful every day by vaginal route for 5 days. 04/10 completed Not Available Not Available Not Available clonidine HCl 0.3 mg tablet active Not Available Not Available Not Available gabapentin 400 mg capsule active Not Available Not Available Not Available sertraline 100 mg tablet active Not Available Not Available Not Available metronidazo le 500 mg tablet Take 1 tablet twice a day by oral route for 7 days. active Not Available Not Available No t Available omeprazole 40 mg capsule,del ayed release active Not Available Not Available Not Available simvastatin 40 mg tablet active Not Available Not Available Not Available isosorbide mononitrate ER 120 mg tablet,exte nded release 24 hr active Not Available Not Available Not Available pantoprazol e 20 mg tablet,braxton yed release active Not Available Not Available Not Available nystatin-tr iamcinolone 100,000 unit/gram-0 .1 % topical ointment APPLY TO THE AFFECTED AREA(S) BY TOPICAL ROUTE 2 TIMES PER DAY 2019 active Not Available Not Available Not Avai lable carbamazepi ne 200 mg tablet active Not Available Not Available Not Available potassium chloride ER 20 mEq tablet,exte nded release(par t/cryst) active Not Available Not Available Not Available famotidine 20 mg tablet active Not Available Not Available Not Available amlodipine 10 mg tablet active Not Available Not Available Not Available hydralazine 100 mg tablet active Not Available Not Available Not Available simvastatin 20 mg tablet 04/10 completed Not Available Not Available Not Available divalproex ER 500 mg tablet,exte nded release 24 hr active Not Available Not Available Not Available haloperidol 10 mg tablet active Not Available Not Available Not Available docusate sodium 100 mg capsule active Not Available Not Available N ot Available sertraline 25 mg tablet active Not Available Not Available Not Available omeprazole 20 mg capsule,del ayed release 09/19 completed Not Available Not Available Not Available clonidine 0.3 mg/24 hr weekly transdermal patch 09/19 completed Not Available Not Available Not Available ergocalcife rol (vitamin D2) 1,250 mcg (50,000 unit) capsule active Not Available Not Available Not Available insulin lispro (U-100) 100 unit/mL subcutaneou s solution 09/19 completed Not Available Not Available Not Available ibuprofen 600 mg tablet 09/19 completed Not Available Not Available Not Available polyethylen e glycol 3350 17 gram/dose oral powder active Not Available Not Available Not Available albuterol sulfate HFA 90 mcg/actuati on aerosol inhaler active Not Available Not Available Not Available losartan 100 mg tablet active Not Available Not Available Not Available sertraline 50 mg tablet 04/10 completed Not Available Not Available Not Available metronidazo le 0.75 % topical gel 09/19 completed Not Available Not Available Not Available insulin lispro (U-100) 100 unit/mL subcutaneou s cartridge Inject by subcutane ous route. 09/19 completed Not Available Not Available Not Available insulin lispro (U-100) 100 unit/mL subcutaneou s pen active Not Available Not Available Not Available aripiprazol e 30 mg tablet active Not Available Not Available Not Available divalproex ER 250 mg tablet,exte nded release 24 hr active Not Available Not Available Not Available sertraline 09/19 completed Not Available Not Available Not Available Milk of Magnesia active Not Available Not Available Not Available aspirin 09/19 completed Not Available Not Available Not Available clonidine 09/19 completed Not Available Not Available Not Available carbamazepi ne 09/19 completed Not Available Not Available Not Available benztropine 09/19 completed Not Available Not Available Not Available famotidine 09/19 completed Not Available Not Available Not Available ibuprofen 09/19 completed Not Available Not Available Not Available furosemide 09/19 completed Not Available Not Available Not Available hydralazine 09/19 completed Not Available Not Available Not Available amlodipine 09/19 completed Not Available Not Available Not Available divalproex 09/19 completed Not Available Not Available Not Available simvastatin 09/19 completed Not Available Not Available Not Available losartan 09/19 completed Not Available Not Available Not Available Klor-Con 09/19 completed Not Available Not Available Not Available trazodone 09/19 completed Not Available Not Available Not Available metformin 09/19 completed Not Available Not Available Not Available gabapentin 09/19 completed Not Available Not Available Not Available aripiprazol e 09/19 completed Not Available Not Available Not Available acetaminoph en (bulk) 04/10 completed Not Available Not Available Not Available Vitamin D2 active Not Available Not Av ailable Not Available polyethylen glycol 1450-stevia 09/19 completed Not Available Not Available Not Available sodium 175 mg-potas 65 mg-chlor 211 mg-mag 10 mg-phos 103 mg ER tablet Take by oral route. 09/19 completed Not Available Not Available Not Available Vitals Date Recorded Body weight Systolic blood pressure Diastolic blood pressure Provider Name and Address Organization Details Last Updated DateTime 09/19/2020 32106.96 g 120 mm[Hg] 78 mm[Hg] Elida Pizarro [facility] 09/19/2020 12:32:38 Date Recorded Body weight Systolic blood pressure Diastolic blood pressure Provider Name and Address Organization Details Last Updated DateTime 04/10/2021 33107.96 g 130 mm[Hg] 80 mm[Hg] Elida Pizarro [facility] 04/10/2021 11:29:19 Date Recorded Systolic blood pressure Diastolic blood pressure Provider Name and Address Organization Details Last Updated DateTime 11/22/2019 130 mm[Hg] 88 mm[Hg] Ashanti Villasenor [facility] 11/22/2019 13:53:22 Social History Question Answer Notes LastModified by Organizat ion Details LastModified Time Tobacco Smoking Status Never Smoker Ashanti fulton [facility] 11/22/2019 13:42:05 What Is Your Level Of Alcohol Consumption? None Information not available 09/19/2020 Are You Blind Or Do You Have Difficulty Seeing? No Information not available 09/19/2020 What Is Your Level Of Caffeine Consumption? Occasional Information not available 09/19/2020 Are You Deaf Or Do You Have Serious Difficulty Hearing? No Information not available 09/19/2020 What Type Of Diet Are You Following? REGULAR Information not available 09/19/2020 Do You Use Your Seat Belt Or Car Seat Routinely? Yes Information not available 09/19/2020 Do You Have Smoke And Carbon Monoxide Detectors In Your Home? Yes Information not available 09/19/2020 Do You Feel Stressed (tense, Restless, Nervous, Or Anxious, Or Unable To Sleep At Night)? [id number] Information not available 09/19/2020 Do You Use Any Illicit Or Recreational Drugs? No Information not available 09/19/2020 Do You Use Sunscreen Routinely? Yes Information not available 09/19/2020 Sex: Unknown Functional Status Question Answer Note LastModified by Organizat ion Details LastModified Time Are you able to walk? NOMINWHEEL Information not available 09/19/2020 What is your exercise level? None Information not available 09/19/2020 Mental Status None recorded. Family History Nothing Reported. Medical History Condition Response Diabetes Y High Cholesterol Y Heart Disease Y Hypertension Y Asthma Y Psychiatric Illness Y Gynecological History Statement/Question Response STIs/STDs N HPV Vaccine N Date of Last Pap Smear Sexual Problems? N Current Control Method None LMP Unknown Sexually Active? N Obstetrics History GPAL:G 0 P 0 0 0 0 Past Encounters Encounter ID Performer Location Encounter Start Date Encounter Closed Date Diagnosis/Indication Diagnosis SNOMED-CT Code Diagnosis ICD10 Code Diagnosis Note [id number] Kezia Treviño [facility] [address] [address] 11/22/2019 14:00:11 11/22/2019 17:10:09 Vaginitis 43135989 N76.0 With child welfare caseworker present we agreed to send medication for probable yeast infection; will send swabs & contact with results if additional treatment needed. relief worker will help submit request to obtain records so that we can determine KILN OPERATOR/OB History in regards to colonoscop y/Dexa/Pap Hx etc. Much assistance needed to prepare & during exam. Mammo order given. Time spent in visit is a total of 30 mins with at least 50% of visit consisting of counseling and review of plan of care. [id number] Kezia Treviño [facility] [address],[place] [address] 09/19/2020 12:13:45 09/19/2020 13:17:10 Vaginitis [id number] N76.0 Suspect BV infectionR x sent to [facility] contact with results if changes to plan of care need to be updated. Time spent in visit is a total of 15 mins with at least 50% of visit consisting of counseling and review of plan of care.Addit ional precaution adriana measures were taken to minimize potential exposure to the Covid-19 virus during this patient s visit, including available hand germ drier upon arrive, temperatur e check and being asked a series of screening questions. All staff wore face coverings during this encounter, as well as provided additional cleaning and sanitizing of all surfaces, including countertop s, pens, chairs, door handles, light switches, etc, prior to and following the patient s visit. [id number] Kezia Treviño [facility] [address],[place] [address] 04/10/2021 10:50:24 04/10/2021 14:02:14 Vaginitis [id number] N76.0 Suspect BV infectionR x sent to [facility] update on results when returned. Time spent in visit is a total of 15 mins with at least 50% of visit consisting of counseling and review of plan of care.Addit ional precaution adriana measures were taken to minimize potential exposure to the Covid-19 virus during this patient s visit, including available hand germ drier upon arrive, temperatur e check and being asked a series of screening questions. All staff wore face coverings during this encounter, as well as provided additional cleaning and sanitizing of all surfaces, including countertop s, pens, chairs, door handles, light switches, etc, prior to and following the patient s visit. Health Concerns Section Related Observation LastModified by Organization Detai ls LastModified Time None Recorded Concern Status LastModified by Organization Details LastModified Time None Recorded Advance Directives Directive None Recorded Payers Encounter Date Sequence Insurance Name Policy Number Policy Pena Covered Member ID Pena Member ID Guarantor Name 11/22/2019 1 [facility] (MEDICAID HMO) [id number] Yenny Hernandez [id number] Yenny Hernandez 09/19/2020 1 [facility] (MEDICAID HMO) [id number] Yenny Hernandez [id number] Yenny Hernandez 04/10/2021 1 [facility] (MEDICAID HMO) [id number] Yenny Hernandez [id number] Yenny Hernandez Notes Date Note Type Note Provider Name and Address Organization Details Recorded Time 11/22/2019 text/html Vaginal/Vulvar ProblemReported bypatient.Notes:Bridgett hernandez is a 69yo AA female here with child welfare caseworker from assisted living facility due to dementia and other health issues. She is a poor historian due to dementia. She has urinary incontinence for which she wears adult diaper. Unable to obtain accurate KILN OPERATOR/OB History from patient. relief worker with limited knowledge of patient history. Patient voices vaginal irritation & some itching. ??Discharge?? Wheel chair bound. Assistance to dress required. Gait unstable. DONNY Murry [address], [place], [address], [facility] 11/22/2019 16:19:47 09/19/2020 text/html Vaginal/Vulvar ProblemReported bypatient.Location:[facility] Onset/Timing:gradual Duration:present for 2-4 weeks Quality:itching; irritation; Thick and thin white to yellow d/c with odor at times. Itching+ Severity:moderate Context:not sexually active Alleviating Factors:none Aggravating Factors:none Associated Symptoms:no vaginal pain; no vulvar swelling/erythema; no vulvar pain; no vulvar lesions; no pelvic pain; no dyspareunia; no dysuria; no fever; no abdominal pain;vaginal itching;vaginal irritation;vulvar itching/irritation DONNY Murry [address], [place], [address], [facility] 09/19/2020 12:53:00 04/10/2021 text/html Vaginal/Vulvar ProblemReported bypatient.Notes:Here today for complaints of fishy vaginal odor x 1wk.She is wheel chair bound but is able to stand and assist with mobilization.Her human resources assistant from the home she lives in is with her today.She wears adult pull ups on a daily basis for incontinence issues.She is able to make it to the restroom most of the time but since needs assistance this is a precaution; especially at night.She voices she is not SA & has no d/c or itching.Neg urinary /GI sx'sNeg Abd/flank/pelvic painNeg N/V/F/D/C Kezia Treviño, [facility]- [address], [place], [address], [place] [facility] 04/10/2021 13:59:10 OBGyn Episode No OBEpisode recorded.
--- OUTSIDE RECORDS SUMMARY | 2024-04-21 21:38 | XMS_ITS | Clinical Summary ---
Author Organization [facility] Address [address] [address] Care Team Providers Care Honing Machine Try Out Setter Name Role Phone Missael Boyce MD Primary Care Provider Source Comments [facility],non-owned Affiliates and Associated Physician Practices is amultiple site organization consisting of ambulatory clinics and hospital sitesin [place], [place], [place] and [place]. This disclosure is being madepursuant to the Care Everywhere program and may not contain all information available regarding this patient. Last updated 17.[facility] [place] Allergies Active Allergy Reactions Criticality Noted Date Comments Penicillins 08/22/2015 Medications * Be aware that medications may not be up to date on this document. Alwaysverify current medications with the patient. Medication Sig Dispensed Refills Start Date End Date Status ARIPiprazole (ABILIFY) 30 MG tablet Take 30 mg by mouth once daily Active amLODIPine (NORVASC) 10 MG tablet Take 10 mg by mouth once daily Active aspirin (ASPIRIN) 81 MG chew tablet Take 81 mg by mouth once daily Active benztropine (COGENTIN) 0.5 MG tablet Take 0.5 mg by mouth 2 times daily Active carBAMazepine XR 12hr (TEGRETOL XR) 400 MG tablet Take 400 mg by mouth 2 times daily with morning and evening meal Active cloNIDine (CATAPRES) 0.1 MG tablet Take 0.1 mg by mouth 3 times daily as needed Active cromolyn (CROLOM) 4 % ophthalmic solution Instill 1 Drop into both eyes 4 times daily Active gabapentin (NEURONTIN) 300 MG capsule Take 300 mg by mouth 3 times daily Active haloperidol (HALDOL) 10 MG tablet Take 10 mg by mouth 3 times daily Active isosorbide dinitrate (ISORDIL) 30 MG tablet Take 30 mg by mouth once daily Active lisinopril (PRINIVIL; ZESTRIL) 10 MG tablet Take 10 mg by mouth once daily Active naproxen (NAPROSYN) 500 MG tablet Take 500 mg by mouth 2 times daily Active potassium chloride (KLOR-CON M) 20 MEQ tablet Take 40 mEq by mouth 2 times daily Active pravastatin (PRAVACHOL) 20 MG tablet Take 20 mg by mouth at bedtime Active ranitidine (ZANTAC) 150 MG tablet Take 150 mg by mouth once daily Active sertraline (ZOLOFT) 50 MG tablet Take 75 mg by mouth once daily Active tolterodine (DETROL) 2 MG tablet Take 2 mg by mouth once daily Active Cholecalciferol (VITAMIN D3) 84961 UNITS capsule Take 50,000 Units by mouth every 7 days 08/27/2015 Active albuterol HFA (PROVENTIL;VENTOLI N;PROAIR) 108 (90 BASE) MCG/ACT inhaler Inhale 1 Puff by mouth every 6 hours as needed Active ondansetron (ZOFRAN) 4 MG tablet Take 4 mg by mouth every 8 hours as needed for Nausea/Vomiting Active OLANZapine (ZYPREXA) 10 MG tabletIndications: Agitation Take 10 mg by mouth every 6 hours as needed Reasons: Agitation Active OLANZAPINE IM Inject 10 mg into muscle every 6 hours as needed Active magnesium hydroxide (MILK OF MAGNESIA) 400 MG/5ML suspension Take 30 mL by mouth once daily as needed Active LORazepam (ATIVAN) 2 MG tablet Take 2 mg by mouth 3 times daily as needed for Anxiety Active LORazepam (ATIVAN) injectionIndicatio ns:Anxiety Inject 2 mg into muscle every 4 hours to 6 hours prn Reasons: Feeling Anxious Active glucagon (GLUCAGEN) injection Inject 1 mg subcutaneously as needed Active acetaminophen (TYLENOL) 500 MG tablet Take 500 mg by mouth every 4 hours as needed for Fever or Pain Maximum allowable Acetaminophen amount = 4 Grams (4000 mg) / 24 hours. Active oxybutynin CR 24hr (DITROPAN-XL) 5 MG tablet Take 5 mg by mouth once daily Active Social History Tobacco Use Types Packs/Day Years Used Date Smoking Tobacco: Never Assessed Sex and Gender Information Value Date Recorded Sex Assigned at Not on file Gender Identity Not on file Sexual Orientation Not on file Last Filed Vital Signs Vital Sign Reading Time Taken Comments Blood Pressure 165/89 08/23/2015 8:00 AM CDT Pulse 74 08/23/2015 8:00 AM CDT Temperature 36.4 C (97.5 F) 08/23/2015 8:00 AM CDT Respiratory Rate 18 08/23/2015 8:00 AM CDT Oxygen Saturation 96% 08/23/2015 8:00 AM CDT Inhaled Oxygen Concentration - - Weight 99.3 kg (219 lb) 08/17/2013 6:28 PM CDT Height 157.5 cm (5' 2 ) 08/17/2013 6:28 PM CDT Body Mass Index 40.06 08/17/2013 6:28 PM CDT Plan of Treatment Health Maintenance Due Date Last Done Comments BONE DENSITY TESTING 1950 COLOGUARD (AGES 45-75) - COL ON CA SCREENING 1950 COLON MONITORING 1950 COLONOSCOPY - COLON CA SCREENING 1950 CT COLONOGRAPHY - COLON CA SCREENING 1950 Colorectal Cancer Screening 1950 FIT - COLON CA SCREENING 1950 FLEX SIG - COLON CA SCREENING 1950 MAMMOGRAM 1950 HEPATITIS C SCREENING 08/28/1969 DTAP/TDAP/TD VACCINES (1 - Tdap) 09/01/1970 PNEUMOCOCCAL VACCINE 50+ (1 of 1 - PCV) 09/01/2001 ZOSTER VACCINE (1 of 2) 09/01/2001 Respiratory Syncytial Virus (RSV) Vaccine Pt: or over 60 yrs (1 - Risk 60-74 years 1-dose series) 2011 COVID-19 VACCINE ( - 2023-2 5 season) 2023 INFLUENZA VACCINE (#1) 2023 DEPRESSION SCREENING 02/17/2024 HEPATITIS B VACCINE Aged Out No longe r eligible based on patient's age to complete this topic HIB VACCINE Aged Out No longer eligi ble based on patient's age to complete this topic HPV VACCINE Aged Out No longer eligi ble based on patient's age to complete this topic MENINGOCOCCAL (Group B) VACCINE Aged Out No longer eligible based on patient's age to complete this topic MENINGOCOCCAL VACCINE Aged Out No rodney curtis eligible based on patient's age to complete this topic Care Teams Honing Machine Try Out Setter Relationship Specialty Start Date End Date Missael Boyce MD [address] [place] [address] PCP - General Internal Medicine 08/22/15
--- OUTSIDE RECORDS SUMMARY | 2024-04-21 21:38 | XMS_ITS | Patient Health Summary ---
Author Organization [facility] Address [address] [place] [address] Care Team Providers Care Car Builder Name Role Phone Missael Boyce MD Primary Care Provider [phone] Note from [facility],non-owned Affiliates and Associated Physician Practices is amultiple site organization consisting of ambulatory clinics and hospital sitesin [place], [place], [place] and [place]. This disclosure is being madepursuant to the Care Everywhere program and may not contain all information available regarding this patient. Last updated 17.[facility] Allergies * Penicillins Medications * Be aware that medications may not be up to date on this document. Alwaysverify current medications with the patient. * ARIPiprazole (ABILIFY) 30 MG tablet Take 30 mg by mouth once daily * amLODIPine (NORVASC) 10 MG tablet Take 10 mg by mouth once daily * aspirin (ASPIRIN) 81 MG chew tablet Take 81 mg by mouth once daily * benztropine (COGENTIN) 0.5 MG tablet Take 0.5 mg by mouth 2 times daily * carBAMazepine XR 12hr (TEGRETOL XR) 400 MG tablet Take 400 mg by mouth 2 times daily with morning and evening meal * cloNIDine (CATAPRES) 0.1 MG tablet Take 0.1 mg by mouth 3 times daily as needed * cromolyn (CROLOM) 4 % ophthalmic solution Instill 1 Drop into both eyes 4 times daily * gabapentin (NEURONTIN) 300 MG capsule Take 300 mg by mouth 3 times daily * haloperidol (HALDOL) 10 MG tablet Take 10 mg by mouth 3 times daily * isosorbide dinitrate (ISORDIL) 30 MG tablet Take 30 mg by mouth once daily * lisinopril (PRINIVIL; ZESTRIL) 10 MG tablet Take 10 mg by mouth once daily * naproxen (NAPROSYN) 500 MG tablet Take 500 mg by mouth 2 times daily * potassium chloride (KLOR-CON M) 20 MEQ tablet Take 40 mEq by mouth 2 times daily * pravastatin (PRAVACHOL) 20 MG tablet Take 20 mg by mouth at bedtime * ranitidine (ZANTAC) 150 MG tablet Take 150 mg by mouth once daily * sertraline (ZOLOFT) 50 MG tablet Take 75 mg by mouth once daily * tolterodine (DETROL) 2 MG tablet Take 2 mg by mouth once daily * Cholecalciferol (VITAMIN D3) 94633 UNITS capsule(Started 08/27/2015) Take 50,000 Units by mouth every 7 days * albuterol HFA (PROVENTIL;VENTOLIN;PROAIR) 108 (90 BASE) MCG/ACT inhaler Inhale 1 Puff by mouth every 6 hours as needed * ondansetron (ZOFRAN) 4 MG tablet Take 4 mg by mouth every 8 hours as needed for Nausea/Vomiting * OLANZapine (ZYPREXA) 10 MG tablet Take 10 mg by mouth every 6 hours as needed Reasons: Agitation * OLANZAPINE IM Inject 10 mg into muscle every 6 hours as needed * magnesium hydroxide (MILK OF MAGNESIA) 400 MG/5ML suspension Take 30 mL by mouth once daily as needed * LORazepam (ATIVAN) 2 MG tablet Take 2 mg by mouth 3 times daily as needed for Anxiety * LORazepam (ATIVAN) injection Inject 2 mg into muscle every 4 hours to 6 hours prn Reasons: Feeling Anxious * glucagon (GLUCAGEN) injection Inject 1 mg subcutaneously as needed * acetaminophen (TYLENOL) 500 MG tablet Take 500 mg by mouth every 4 hours as needed for Fever or Pain Maximum allowable Acetaminophen amount = 4 Grams (4000 mg) / 24 hours. * oxybutynin CR 24hr (DITROPAN-XL) 5 MG tablet Take 5 mg by mouth once daily Social History Tobacco Use Types Packs/Day Years [...] Mass Index 40.06 08/17/2013 6:28 PM CDT Procedures * CT HEAD WO CONTRAST(Performed 08/23/2015) Performed for Head injury, initial encounter * CARBAMAZEPINE LEVEL TOTAL(Performed 08/23/2015) * COMPREHENSIVE METABOLIC PANEL(Performed 08/23/2015) * CBC W AUTO DIFFERENTIAL(Performed 08/23/2015) * TROPONIN I(Performed 08/18/2013) * CK + CKMB PANEL(Performed 08/18/2013) * CARBAMAZEPINE LEVEL TOTAL(Performed 08/18/2013) * CULTURE URINE(Performed 08/18/2013) * CT HEAD WO CONTRAST(Performed 08/18/2013) * BASIC METABOLIC PANEL (CALCIUM TOTAL)(Performed 08/18/2013) * PHOSPHORUS BLOOD(Performed 08/18/2013) * MAGNESIUM BLOOD(Performed 08/18/2013) * CBC W AUTO DIFFERENTIAL(Performed 08/18/2013) * CBC W AUTO DIFFERENTIAL(Performed 08/18/2013) * CK + CKMB PANEL(Performed 08/18/2013) * TROPONIN I(Performed 08/18/2013) * HEMOGLOBIN A1C(Performed 08/17/2013) * LIPID PROFILE(Performed 08/17/2013) * URINALYSIS REFLEX TO MICROSCOPIC NO CULTURE(Performed 08/17/2013) * XR CHEST 1VW PORTABLE(Performed 08/17/2013) * EKG 12-LEAD(Performed 08/17/2013) Results * CT HEAD NON CONTRAST (08/23/2015 1:44 AM CDT) Only the most recent of2 resultswithin the time period is included. Anatomical Region Laterality Modality Head Computed Tomogra phy 08/23/2015 7:16 AM CDT Impressions 08/23/2015 7:40 AM CDT Negative for intracranial mass or hemorrhage. Edited by Carri Murray on 08/23/2015 7:18 AM Narrative 08/23/2015 7:[address] BRAIN WITHOUT CONTRAST HISTORY: Mental status changes. A non-infusion study from the skull base to the vertex shows no mass or hemorrhage. No extracerebral fluid collections are seen. Bone windows show no gross skull lesion. There may be a mild proptosis present. Procedure Note Jay Santana MD - 08/23/2015 CT BRAIN WITHOUT CONTRAST HISTORY: Mental status changes. A non-infusion study from the skull base to the vertex shows no mass or hemorrhage. No extracerebral fluid collections are seen. Bone windows show no gross skull lesion. There may be a mild proptosis present. IMPRESSION Negative for intracranial mass or hemorrhage. Edited by Carri Murray on 08/23/2015 7:18 AM Michael Lockett MD CT ORDERABLES * (ABNORMAL) CBC W AUTO DIFFERENTIAL (08/23/2015 1:30 AM CDT) Only the most recent of3 resultswithin the time period is included. WBC 5.3 4.4 - 10.7 x10E9/L 08/23/2015 2:04 AM CDT [facility] WBC Corrected x10E9/L 08/23/2015 2:04 AM CDT [facility] RBC 4.57 3.80 - 5.20 x10E12/L 08/23/2015 2:04 AM CDT [facility] Hemoglobin 14.4 12.0 - 15.6 gm/dL 08/23/2015 2:04 AM CDT [facility] Hematocrit 43.4 35.9 - 45.5 % 08/23/2015 2:04 AM CDT [facility] MCV 95.0 80.7 - 98.3 fl 08/23/2015 2:04 AM CDT [facility] MCH 31.5 26.7 - 34.0 pg 08/23/2015 2:04 AM CDT [facility] MCHC 33.2 30.8 - 35.9 gm/dL 08/23/2015 2:04 AM CDT [facility] Platelet Count 202 153 - 416 x10E9/L 08/23/2015 2:04 AM CDT [facility] RDW-CV 12.5 12.1 - 14.9 % 08/23/2015 2:04 AM CDT [facility] MPV 10.5 9.4 - 12.9 fl 08/23/2015 2:[address] [facility] Neutrophils % 38.9(L) 44.0 - 73.0 % 08/23/2015 2:[address] [facility] Lymphocytes % 46.5(H) 20.0 - 43.0 % 08/23/2015 2:[address] [facility] Monocytes % 10.1 5.0 - 13.0 % 08/23/2015 2:04 AM T [facility] Eosinophils % 3.2 0.0 - 6.0 % 08/23/2015 2:[address] [facility] Basophils % 1.1 0.0 - 2.0 % 08/23/2015 2:[address] [facility] Immature Granulocytes 0.2 0 - 1 % 08/23/2015 2:[address] [facility] Neutrophil Absolute 2.07 2.01 - 7.14 x10E9/L 08/23/2015 2:[address] [facility] Lymphocytes Absolute 2.48 1.07 - 3.94 x10E9/L 08/23/2015 2:[address] [facility] Monocytes Absolute 0.54 0.26 - 1.07 x10E9/L 08/23/2015 2:[address] [facility] Eosinophils Absolute 0.17 0 - 0.47 x10E9/L 08/23/2015 2:[address] [facility] Basophils Absolute 0.06 0 - 0.08 x10E9/L 08/23/2015 2:[address] [facility] Immature Granulocytes Absolute 0.01 0.00 - 0.06 x10E9/L 08/23/2015 2:[address] [facility] nRBC Auto 0 /100 WBC 08/23/2015 2:[address] [facility] Blood BLOOD SPECIMEN / Unknown Venipuncture / Unknown 08/23/2015 1:30 AM CDT 08/23/2015 2:00 AM CDT Michael Lockett MD LAB - HEMATOLOGY ORD ERABLES [facility] Organization Address City/State/ZIP Co de Phone Number [facility] [address] [place] [address] * (ABNORMAL) COMPREHENSIVE METABOLIC PANEL (08/23/2015 1:30 AM CDT) [facility] Glucose 97 74 - 106 mg/dL 08/23/2015 2:17 AM CDT [facility] Sodium 140 136 - 145 mmol/L 08/23/2015 2:17 AM CDT [facility] Potassium 3.4(L) 3.5 - 5.1 mmol/L 08/23/2015 2:17 AM CDT [facility] Chloride 103 98 - 107 mmol/L 08/23/2015 2:17 AM CDT [facility] CO2 34(H) 22 - 31 mmol/L 08/23/2015 2:17 AM CDT [facility] Calcium 8.9 8.5 - 10.1 mg/dL 08/23/2015 2:17 AM CDT [facility] Anion Gap 3(L) 5 - 20 mmol/L 08/23/2015 2:17 AM CDT [facility] BUN 16 7 - 21 mg/dL 08/23/2015 2:17 AM CDT [facility] Creatinine 0.72 0.50 - 1.30 mg/dL 08/23/2015 2:17 AM CDT [facility] Alkaline Phosphatase 143(H) 38 - 126 U/L 08/23/2015 2:17 AM CDT [facility] ALT 24 13 - 61 U/L 08/23/2015 2:17 AM CDT [facility] Comment:See reference range update AST 18 5 - 40 U/L 08/23/2015 2:17 AM CDT [facility] Protein Total 8.4(H) 6.4 - 8.2 gm/dL 08/23/2015 2:17 AM CDT [facility] Albumin 4.0 3.4 - 5.0 gm/dL 08/23/2015 2:17 AM CDT [facility] Bilirubin Total 0.3 0.2 - 1.0 mg/dL 08/23/2015 2:17 AM CDT [facility] eGFR by MDRD >60 >60 mL/min/1.7 3m2 08/23/2015 2:17 AM CDT [facility] eGFR by MDRD >60 >60 mL/min/1.7 3m2 08/23/2015 2:17 AM CDT [facility] Blood BLOOD SPECIMEN / Unknown Venipuncture / Unknown 08/23/2015 1:30 AM CDT 08/23/2015 2:04 AM CDT Michael Lockett MD LAB - CHEMISTRY VIVIANE MANCIA Performing Organization Address [facility]/ZIP Co de Phone Number [facility] [address] [place] [address] * (ABNORMAL) CARBAMAZEPINE LEVEL TOTAL (08/23/2015 1:30 AM CDT) Only the most recent of2 resultswithin the time period is included. Pathologist [facility] Carbamazepine 13.2(HH) 4.0 - 10.0 ug/mL 08/23/2015 6:21 AM CDT [facility] Blood BLOOD SPECIMEN / Unknown Venipuncture / Unknown 08/23/2015 1:30 AM CDT 08/23/2015 6:05 AM CDT Michael Lockett MD LAB - CHEMISTRY VIVIANE MANCIA Performing Organization Address [facility] Co de Phone Number [facility] [address] [place] [address] * TROPONIN I (08/18/2013 12:17 PM CDT) Only the most recent of2 resultswithin the time period is included. [facility] Troponin I <0.032 <0.032 ng/mL [facility] Blood specimen (specimen) BLOOD SPECIMEN / Unknown 08/18/2013 12:17 PM CDT 08/18/2013 12:17 PM CDT Sandro Dennison MD LAB - CHEMISTRY VIVIANE MANCIA Performing Organization Address City/[facility]/ZIP Co de Phone Number [address] [phone] * (ABNORMAL) CK + CKMB PANEL (08/18/2013 12:17 PM CDT) Only the most recent of2 resultswithin the time period is included. [facility] CK Total 26(L) 30 - 200 Units/L [facility] CK-MB 0.9 0.0 - 6.6 ng/mL [facility] Blood specimen (specimen) BLOOD SPECIMEN / Unknown 08/18/2013 12:17 PM CDT 08/18/2013 12:17 PM CDT Sandro Dennison MD LAB - CHEMISTRY ORDAlec MANCIA Performing Organization Address [facility] de Phone Number [address] [phone] * (ABNORMAL) CULTURE URINE (08/18/2013 10:50 AM CDT) Culture Urine ESCHERICHIA COLI(A) [facility] Comment: 100,000 CFU/ML Escherichia Coli Both organisms identified as Escherichia Coli Urine specimen (specimen) URINE / Unknown 08/18/2013 10:50 AM CDT 08/18/2013 10:58 AM CDT Narrative [facility] - 08/21/2013 10:32 AM CDT Specimen Type->Urine Organism Antibiotic Method Susceptibility Escherichia coli Amikacin SUSCEPTIBILITY <=2: Sensitive Escherichia coli Ampicillin SUSCEPTIBILITY >=32: Resistant Escherichia coli Ampicillin-sulbactam SUSCEPTIBILITY 16: Intermediate Escherichia coli Cefazolin SUSCEPTIBILITY <=4: Sensitive Escherichia coli Cefepime SUSCEPTIBILITY <=1: Sensitive Escherichia coli Ceftazidime SUSCEPTIBILITY <=1: Sensitive Escherichia coli Ceftriaxone SUSCEPTIBILITY <=1: Sensitive Escherichia coli Gentamicin SUSCEPTIBILITY <=1: Sensitive Escherichia coli Imipenem SUSCEPTIBILITY <=0.25: Sensitive Escherichia coli Levofloxacin SUSCEPTIBILITY >=8: Resistant Escherichia coli Nitrofurantoin SUSCEPTIBILITY <=16: Sensitive Escherichia coli Piperacillin-tazobactam SUSCEPTIBILIT Y <=4: Sensitive Escherichia coli Tobramycin SUSCEPTIBILITY <=1: Sensitive Escherichia coli Trimethoprim-sulfamethoxazole SUSCEPT IBILITY >=320: Resistant Escherichia coli Extended-Spectrum Beta-Lactamase SUSC EPTIBILITY Neg: - Sandro Dennison MD LAB - MICROBIOLOGY O RDERABLES Performing Organization Address [facility]/ZIP Co de Phone Number [address] [phone] * (ABNORMAL) BASIC METABOLIC PANEL (CALCIUM TOTAL) (08/18/2013 2:45 AM CDT) BUN 16 7 - 26 mg/dL [facility] Anion Gap 16 8 - 18 [facility] BUN/Creatinine Ratio 20 7 - 23 [facility] Osmolality Calculated 285 270 - 300 mOsm/kg [facility] Creatinine 0.8 0.6 - 1.2 mg/dL [facility] Sodium 144 136 - 145 mmol/L [facility] Potassium 2.6(LL) 3.5 - 4.5 mmol/L [facility] Comment:Critical value(s) strong ve been verified and called to and ready back by Odalis at 0345 on 08/18/13. Chloride 103 98 - 107 mmol/L [facility] CO2 28 22 - 29 mmol/L [facility] Glucose 115 70 - 115 mg/dL [facility] Calcium 9.5 8.4 - 10.2 mg/dL [facility] eGFR >60 >60 mL/min/1.7 3 m2 [facility] Blood specimen (specimen) BLOOD SPECIMEN / Unknown 08/18/2013 2:45 AM CDT 08/18/2013 3:18 AM CDT Sandro Dennison MD LAB - CHEMISTRY VIVIANE MANCIA Performing Organization Address City/[facility]/ZIP Co de Phone Number [address] [phone] * PHOSPHORUS BLOOD (08/18/2013 2:45 AM CDT) Phosphorus 3.3 2.3 - 4.7 mg/dL [facility] Blood specimen (specimen) BLOOD SPECIMEN / Unknown 08/18/2013 2:45 AM CDT 08/18/2013 3:18 AM CDT Sandro Dennison MD LAB - CHEMISTRY VIVIANE MANCIA [address] [phone] * MAGNESIUM BLOOD (08/18/2013 2:45 AM CDT) Magnesium 1.9 1.6 - 2.6 mg/dL [facility] Blood specimen (specimen) BLOOD SPECIMEN / Unknown 08/18/2013 2:45 AM CDT 08/18/2013 3:18 AM CDT Sandro Dennison MD LAB - CHEMISTRY VIVIANE MANCIA Performing Organization Address [facility] Co de Phone Number [address] [phone] * HEMOGLOBIN A1C (08/17/2013 10:07 PM CDT) Hemoglobin A1c 5.7 4.4 - 6.3 % [facility] Estimated Average Glucose 117 mg/dL [facility] Comment: HbA1c Interpretation: Treatment target values recommended by ADA and other clinical organizations, not reference intervals, should be used to evaluate metabolic control in patients. Treatment Target Values: Normal : < 5.7% Pre-diabetes: 5.7-6.4% Diabetes: > 6.4% Test results diagnostic of diabetes should be repeated for confirmation. The Tosoh G8 assay for the measurement of HbA1c is a National Glycohemoglobin Standardization Program (NGSP)certified method. Results for patients with HbE disease should be interpreted with caution as this hemoglobinopathy has been shown to interfere with the Tosoh G8 assay. Blood specimen (specimen) BLOOD SPECIMEN / Unknown 08/17/2013 10:07 PM CDT 08/17/2013 10:13 PM CDT Sandro Dennison MD LAB - CHEMISTRY VIVIANE MANCIA Performing Organization Address City/[facility]/ZIP Co de Phone Number [address] [phone] * (ABNORMAL) LIPID PROFILE (08/17/2013 10:07 PM CDT) Cholesterol Total 211(H) <200 mg/dL [facility] HDL 36(L) >40 mg/dL [facility] Comment: ATP III Classification of HDL Cholesterol: <40 mg/dL: Considered a major risk factor. >60 mg/dL: Considered a negative risk factor. LDL Calculated 143(H) <100 mg/dL [facility] Comment: ATP III Classification of LDL Cholesterol: <100 mg/dL: Optimal 100 - 129 mg/dL: Near Optimal/Above Optimal 130 - 159 mg/dL: Borderline High 160 - 189 mg/dL: High >190 mg/dL: Very High Triglycerides 160(H) <150 mg/dL [facility] Comment: ATP III Classification of Triglycerides: <150 mg/dL: Normal 150 - 199 mg/dL: Borderline High 200 - 400 mg/dL: High >500 mg/dL: Very High Blood specimen (specimen) BLOOD SPECIMEN / Unknown 08/17/2013 10:07 PM CDT 08/17/2013 10:13 PM CDT Sandro Dennsion MD LAB - CHEMISTRY VIVIANE MANCIA [address] [phone] * (ABNORMAL) URINALYSIS REFLEX TO MICROSCOPIC NO CULTURE (08/17/2013 9:43 PM CDT) Color UA Yellow Straw, Yellow, Colorless, Light Yellow [facility] Clarity UA Clear Clear [facility] Specific [place] UA 1.009 1.001 - 1.030 [facility] pH UA 6.5 5.0 - 8.0 [facility] Protein UA Negative <=20 mg/dL [facility] Glucose UA Negative Negative mg/dL [facility] Ketone UA Negative Negative mg/dL [facility] Bilirubin UA Negative Negative mg/dL [facility] Blood UA Negative Negative [facility] Nitrite UA Negative Negative [facility] Leukocyte Esterase Large(A) Negative [facility] Urobilinogen UA <2.0 <2.0 mg/dL [facility] RBC UA 2 0 - 8 /HPF [facility] WBC UA 12(H) 0 - 2 /HPF [facility] Bacteria UA Rare Rare, Occasional, None /HPF [facility] Squamous Epithelial Cells UA 2(H) 0 - 1 /HPF [facility] Mucus UA Rare(A) None /LPF [facility] Urine specimen (specimen) URINE SPECIMEN OBTAINED BY CLEAN CATCH PROCEDURE / Unknown 08/17/2013 9:43 PM CDT 08/17/2013 9:52 PM CDT Sandro Dennison MD LAB - URINALYSIS ORD ERABLES [address] [phone] * XR CHEST 1VW PORTABLE (08/17/2013 7:10 PM CDT) Anatomical Region Laterality Modality Chest Other Impressions 08/18/2013 11:08 AM CDT Impression: No acute pulmonary process. This report was approved by Tomas Soares M.D. on 08/18/2013 10:[address] GENARO Chin M.D. have personally reviewed and interpreted this examination/study. This report was electronically signed by GENARO HERNANDEZ M.D. on 08/18/2013 11:08 AM . Narrative 08/18/2013 11:08 AM CDT Exam: Portable chest, AP view Date: 08/17/2013 History: Acute ischemic stroke Comparison: Outside hospital radiograph dated 08/17/2013. Findings: Minimal left basilar atelectasis has resolved from outside radiograph. No focal consolidation, pleural effusion, or pneumothorax is present. The cardiomediastinal silhouette is normal in size. Calcified mediastinal lymph nodes are noted. The visible bony thorax is intact. Procedure Note Genaro Hernandez MD - 05/16/2017 Exam: Portable chest, AP view Date: 08/17/2013 History: Acute ischemic stroke Comparison: Outside hospital radiograph dated 08/17/2013. Findings: Minimal left basilar atelectasis has resolved from outside radiograph. Nofocal consolidation, pleural effusion, or pneumothorax is present. Thecardiomediastinal silhouette is normal in size. Calcified mediastinallymph nodes are noted. The visible bony thorax is intact. IMPRESSION Impression: No acute pulmonary process. This report was approved by Tomas Soares M.D. on 08/18/2013 10:[address] GENARO Chin M.D. have personally reviewed and interpretedthis examination/study. This report was electronically signed by GENARO HERNANDEZ M.D. on08/18/2013 11:08 AM . Sandro Dennison MD DIAGNOSTIC IMAGING O RDERABLES * EKG 12-LEAD (08/17/2013 12:00 AM CDT) EKG [facility] Comment: Exam Date/Time: Aug 17 2013 19:46:08 Test Reason : to look for QT prolongation Blood Pressure : / mmHG Vent. Rate : 058 BPM Atrial Rate : 058 BPM P-R Int : 180 ms QRS Dur : 078 ms QT Int : 472 ms P-R-T Axes : 056 051 -25 degrees QTc Int : 463 ms Sinus bradycardia Nonspecific T wave abnormality Abnormal ECG No previous ECGs available Confirmed by Shreya TANG, FRANSISCO ([id number]), news copy editor Terence Tony ([id number]) on 08/31/2013 3:07:19 PM Referred By: REFERRING NO Confirmed By:FRANSISCO TANG M.D. 08/17/2013 Sandro Dennison MD ECG ORDERABLES [facility] Care Teams Car Builder Relationship Specialty Start Date End Date Missael Boyce MD [address] [place] [phone] PCP - General Internal Medicine 08/22/15
--- OUTSIDE RECORDS SUMMARY | 2024-04-21 21:38 | XMS_ITS | Referral Summary ---
Author Organization [facility] Address [address] [place] [address] Care Team Providers Care Customer Contact Sales Associate Name Role Phone Missael Boyce MD Primary Care Provider [phone] Source Comments [facility],non-owned Affiliates and Associated Physician Practices is amultiple site organization consisting of ambulatory clinics and hospital sitesin [place]. This disclosure is being madepursuant to the Care Everywhere program and may not contain all information available regarding this patient. Last updated 17.[facility] Allergies Active Allergy Reactions Criticality Noted Date [...] mouth once daily Active Cholecalciferol (VITAMIN D3) 62433 UNITS capsule Take 50,000 Units by mouth [...] 08/17/2013 6:28 PM CDT Plan of Treatment Not on file Care Teams Customer Contact Sales Associate Relationship Specialty Start Date End Date Missael Boyce MD [address] [place] [phone] PCP - General Internal Medicine 08/22/15
--- NOTE | 2024-04-21 22:07 | PC.NURSE ---
Report called to JASON Rodriguez at [facility]. All questions answered. Pt to go back via [facility]. ETA [id number].
== END 2024-04-21 22:41 ==
PROVIDERS: Emergency Medicine; Emergency Provider Emergency Medicine
DX: N39.0 Urinary tract infection, site not specified (principal); Z20.822 Contact with and (suspected) exposure to COVID-19; I27.20 Pulmonary hypertension, unspecified; I50.30 Unspecified diastolic (congestive) heart failure; I11.0 Hypertensive heart disease with heart failure; G47.33 Obstructive sleep apnea (adult) (pediatric); G40.909 Epilepsy, unspecified, not intractable, without status epilepticus; J96.11 Chronic respiratory failure with hypoxia; J96.12 Chronic respiratory failure with hypercapnia; J44.9 Chronic obstructive pulmonary disease, unspecified; E66.2 Morbid (severe) obesity with alveolar hypoventilation; Z68.35 Body mass index [BMI] 35.0-35.9, adult; E11.9 Type 2 diabetes mellitus without complications; K21.9 Gastro-esophageal reflux disease without esophagitis; R62.50 Unspecified lack of expected normal physiological development in childhood; F20.9 Schizophrenia, unspecified; F32.A Depression, unspecified; Z86.73 Personal history of transient ischemic attack (TIA), and cerebral infarction without residual deficits; Z86.718 Personal history of other venous thrombosis and embolism; I44.0 Atrioventricular block, first degree; R94.31 Abnormal electrocardiogram [ECG] [EKG]; Z79.899 Other long term (current) drug therapy; Z79.82 Long term (current) use of aspirin
CPT/HCPCS: 36415; 71046; 73562; 80053; 81001; 85025; 87086; 87186; 87637; 93005; 96365; 99284; J0696

== ENCOUNTER 2024-05-05 13:19 | Inpatient (IN) | payer OTHER, SELFPAY ==
[2024-05-05] VITALS (11 sets, daily range): BP systolic 122–141; BP diastolic 59–109; PULSE 69–78; RESP 12–20; TEMP 36.4; O2SAT 97–100
--- NOTE | ~2024-05-05 | XR_ITS ---
Portable chest x-ray Comparison: 04/21/2024 Clinical History: Weakness Findings: Lungs are clear, without focal consolidation or pleural effusion. Cardiomediastinal silho uette is stable. Bones and soft tissues are unremarkable. Impression: Clear lungs. Reviewed, dictated and finalized at location . Impression: Clear lungs.
--- NOTE | ~2024-05-05 | CT_ITS ---
EXAMINATION: CT chest abdomen pelvis wo con DATE: 05/09/2024 22:35 INDICATION: Leukocytosis . TECHNIQUE: Computed tomography (CT) of the chest, abdomen, and pelvis was performed with 100 mL Omnip aque-350 intravenous contrast. Automated exposure control and iterative reconstruction technique were employed. The dose-length product was 1343.32 mGy-cm. COMPARISON: [facility] 09/11/2021; CT abdomen pelvis 05/22/2021 FINDINGS: CHEST: Thoracic aorta: No significant dilation. Atherosclerotic calcifications at the arch. Lung parenchyma and airways: Moderate respiratory motion artifact. Lungs and airways are clear. Thoracic inlet, axillae and chest wall: No thyroid or soft tissue mass. No axillary lymphadenopathy. Mediastinum: No mass or lymphadenopathy. Dilated central pulmonary arteries as can be seen with pulmo nary hypertension. Mildly patulous air-filled esophagus. Heart and pericardium: Aortic valve and mitral annulus calcification. Cardiomegaly. Coronary artery calcifications: Moderate. Pleura: No effusion or mass. Thoracic bones: No acute osseous finding in the chest. ABDOMEN/PELVIS: Motion artifact throughout the abdomen. Liver: Normal. Biliary/Gallbladder: The gallbladder is absent or contracted. No definite bile duct dilation, althoug h evaluation is limited. Question of inflammatory stranding in the ketan hepatis. Pancreas: No mass or duct dilation. Stranding about the pancreatic head. Spleen: Normal. Adrenals:No mass. Kidneys: No suspicious mass, obstructing stone, or hydronephrosis. GI tract: Small hiatal hernia. Pronounced wall thickening in the distal sigmoid and rectum, with mild chronic inflammatory change and presacral edema. Mild upstream dilation of the more proximal sigmoid . No small bowel dilation. Normal appendix. Mesentery/Peritoneum: No ascites, mass, or free air. Retroperitoneum: No mass Pelvis: Pelvic organs are within normal limits Soft Tissues: Mild body wall edema. Small fat-containing umbilical hernia with mild stranding. Fatty atrophy of the right rectus musculature. Abdominopelvic bones: No acute osseous finding in the abdomen/pelvis. Partially visualized left femo ral fixation hardware. IMPRESSION: Mild inflammatory stranding at the ketan hepatis with poorly visualized ducts, probably secondary to reactive change and motion artifact, noting that cholangitis could appear similarly. Suggestion of stranding about the pancreatic head, consider acute interstitial pancreatitis and corre late with pancreatic labs. Distal sigmoid and rectal wall thickening, may represent infectious, inflammatory, or ischemic coliti s. Mild body wall edema. Mild inflammatory change around a small fat-containing of local hernia, correlate for pain/tenderness . Reviewed, dictated and finalized at location K. IMPRESSION: Mild inflammatory stranding at the ketan hepatis with poorly visualized ducts, probably secondary to reactive change and motion artifact, noting that cholangi tis could appear similarly. Suggestion of stranding about the pancreatic head, consider acute interstitial pancreatitis and correlate with pancreatic labs. Distal sigmoid and rectal wall thickening, may represent infectious, inflammato ry, or ischemic colitis. Mild body wall edema. Mild inflammatory change around a small fat-containing of local hernia, correla te for pain/tenderness.
--- NOTE | ~2024-05-05 | CT_ITS ---
CT brain wo con Ordering provider: Nalini Kohli MD History: 73 years Female with . GENERAL WEAKNESS, CONFUSION . Comparison: August 11, 2023 Technique: CT of the head without contrast. Radiation reduction technique utilized. The dose-length p roduct was 605.33 mGy-cm. FINDINGS: BRAIN PARENCHYMA AND CSF SPACES: No midline shift, mass effect or hemorrhage. The brain parenchyma a nd CSF spaces are otherwise normal. VISUALIZED PARANASAL SINUSES: Well aerated. MASTOIDS: Well aerated. BONES: The bones appear intact. SOFT TISSUES: Visualized nasopharynx is normal. Superficial soft tissues are normal. IMPRESSION: No acute intracranial findings. Reviewed, dictated and finalized at location A.
--- NOTE | ~2024-05-05 | XR_ITS ---
XR knee RT 3V Ordering provider: Nalini Kohli MD History: . NONTRAUMATIC PAIN /DIFFICULT PT . Comparison: April 21, 2024 FINDINGS: BONES: No acute fracture or dislocation. JOINT SPACES: Severe narrowing of the medial compartment. Marginal osteophytes seen in the knee and p atella. SOFT TISSUES: Normal. IMPRESSION: No acute osseous abnormality right knee. Severe osteoarthritic changes. Reviewed, dictated and finalized at location A.
--- NOTE | ~2024-05-05 | CT_ITS ---
EXAMINATION: CT brain wo con DATE: 05/10/2024 23:53 INDICATION: Lethargy TECHNIQUE: Computed tomography (CT) of the head was performed without intravenous contrast. The dose- length product was 908.00 mGy-cm. Automated exposure control and iterative reconstruction technique w ere employed. COMPARISON: CT dated 05/06/2019 FINDINGS: Mild generalized atrophy. There are scattered mild-moderate periventricular and subcortical white matter changes, most likely related to small vessel ischemic disease (microangiopathy). There is intracranial atherosclerosis. No ventriculomegaly or midline shift. Basilar cisterns are patent. P aranasal sinuses and mastoids are pneumatized. Orbits are symmetric without disconjugate gaze. [place] e sagittal images demonstrate a normal corpus callosum. IMPRESSION: 1. No acute intracranial abnormality. Reviewed, dictated and finalized at location A.
--- NOTE | ~2024-05-05 | XR_ITS ---
EXAMINATION: XR chest 1V portable DATE: 05/09/2024 09:34 INDICATION: Leukocytosis TECHNIQUE: frontal view of the chest was obtained. COMPARISON: Chest radiograph dated 05/05/2024 FINDINGS: The lungs remain clear with no focal airspace opacities, pulmonary edema, pleural effusion or pneumot horax. Heart size is normal. IMPRESSION: 1. No acute cardiopulmonary disease. Reviewed, dictated and finalized at location B.
--- NOTE | ~2024-05-05 | US_ITS ---
EXAM: RENAL ULTRASOUND HISTORY: genevieve COMPARISON: None FINDINGS: RIGHT KIDNEY: 11.2 x 5.0 x 5.1 cm. The parenchyma of the right kidney is unremarkable in echogenicity. No hydronephrosis or bulky renal calculi. LEFT KIDNEY: 10.1 x 5.0 x 4.0 cm No hydronephrosis or renal calculi. The parenchyma of the left kidney is unremarkable in echogenicity. BLADDER: Minimally distended, limiting its evaluation. IMPRESSION: No hydronephrosis or renal calculi. Reviewed, dictated and finalized at location A.
--- NOTE | 2024-05-05 13:29 | ED_ITS ---
HPI - Weakness General Chief complaint: Weakness Stated complaint: WEAKNESS,LETHARGY Time Seen by Provider: 05/05/24 13:25 Source: EMS Mode of arrival: EMS History of Present Illness HPI Narrative: PATIENT CAME FROM RESIDENTIAL BECAUSE OF INCREASED WEAKNESS OVER THE LAST 2 DAYS. STAFF REPORTED THAT PATIENT ALSO HAVE DECREASED P.O. INTAKE PATIENT ON OXYGEN 2 L AT ALL TIME, HISTORY OF COPD, CHF, HYPERTENSION AND DEMENTIA. ON ARRIVAL TO THE ED PATIENT MAIN COMPLAINT IS RIGHT KNEE PAIN FOR UNKNOWN DURATION. Related Data Home Medications ?Medication ?Instructions ?Recorded ?Confirmed ?Last Taken ?Type benztropine 0.5 mg tablet 0.5 mg PO Q12H 01/24/20 06/02/23 01/24/20 16:00 History carbamazepine 200 mg tablet 200 mg PO Q12H 01/24/20 06/02/23 01/24/20 16:00 History hydralazine 100 mg tablet 100 mg PO TID 01/24/20 06/02/23 01/24/20 08:00 History haloperidol 5 mg tablet 5 mg PO Q12H 01/25/20 06/02/23 01/24/20 16:00 History sertraline 25 mg tablet 25 mg PO DAILY 01/25/20 06/02/23 01/24/20 08:00 History sertraline 50 mg tablet 50 mg PO DAILY 01/25/20 06/02/23 01/24/20 08:00 History trazodone 50 mg tablet 50 mg PO HS 01/25/20 06/02/23 Unknown History carvedilol 3.125 mg tablet 3.125 mg PO Q12H 05/22/21 06/02/23 Unknown History Artificial Tears 1 drp EACH EYE Q6H PRN Dry Eye(S) 09/10/21 06/02/23 Unknown History atorvastatin 20 mg tablet 20 mg PO HS 09/10/21 06/02/23 Unknown History olanzapine 10 mg tablet 10 mg PO Q12H 09/10/21 06/02/23 Unknown History gabapentin 400 mg capsule 400 mg PO TID 04/29/22 06/02/23 Unknown History fluticasone propionate 110 1 puff inhalation BID 08/09/22 06/02/23 Unknown History mcg/actuation HFA aerosol inhaler (Flovent HFA) polyethylene glycol 3350 17 gram 17 g PO DAILY 08/09/22 06/02/23 Unknown History oral powder packet divalproex 250 mg tablet,extended 750 mg PO HS 08/10/22 06/02/23 Unknown History release 24 hr divalproex 500 mg tablet,extended 500 mg PO DAILY 08/10/22 06/02/23 Unknown History release 24 hr aripiprazole 30 mg tablet 30 mg PO DAILY 08/25/22 06/02/23 Unknown History aspirin 81 mg tablet 81 mg PO DAILY 08/25/22 06/02/23 Unknown History docusate sodium 100 mg capsule 100 mg PO DAILY 08/25/22 06/02/23 Unknown History ergocalciferol (vitamin D2) 1,250 1,250 mcg PO MONTHLY 08/25/22 06/02/23 Unknown History mcg (50,000 unit) capsule famotidine 20 mg tablet 20 mg PO DAILY 08/25/22 06/02/23 Unknown History ferrous sulfate 325 mg (65 mg 325 mg PO DAILY 08/25/22 06/02/23 Unknown History iron) tablet acetaminophen 500 mg tablet 1,000 mg TID 05/02/23 06/02/23 Unknown History albuterol sulfate 90 mcg/actuation inhalation 05/02/23 06/02/23 Unknown History aerosol inhaler amlodipine 5 mg tablet mg 05/02/23 06/02/23 Unknown History aripiprazole 30 mg tablet mg 05/02/23 06/02/23 Unknown History aspirin 81 mg tablet 81 mg PO DAILY 05/02/23 06/02/23 Unknown History atorvastatin 40 mg tablet mg 05/02/23 06/02/23 Unknown History benztropine 0.5 mg tablet mg 05/02/23 06/02/23 Unknown History carbamazepine 200 mg tablet mg 05/02/23 06/02/23 Unknown History carvedilol 3.125 mg tablet mg 05/02/23 06/02/23 Unknown History divalproex 250 mg tablet,extended mg PO 05/02/23 06/02/23 Unknown History release 24 hr divalproex 500 mg tablet,extended mg PO 05/02/23 06/02/23 Unknown History release 24 hr docusate sodium 100 mg capsule mg PO 05/02/23 06/02/23 Unknown History ergocalciferol (vitamin D2) 1,250 05/02/23 06/02/23 Unknown History mcg (50,000 unit) capsule famotidine 20 mg tablet mg 05/02/23 06/02/23 Unknown History ferrous sulfate 325 mg (65 mg mg 05/02/23 06/02/23 Unknown History iron) tablet fluticasone propionate 110 inhalation 05/02/23 06/02/23 Unknown History mcg/actuation HFA aerosol inhaler furosemide 40 mg tablet mg 05/02/23 06/02/23 Unknown History gabapentin 400 mg capsule mg 05/02/23 06/02/23 Unknown History guaifenesin 600 mg tablet, mg PO 05/02/23 06/02/23 Unknown History extended release 12 hr (Mucinex) haloperidol 5 mg tablet mg 05/02/23 06/02/23 Unknown History hydralazine 50 mg tablet mg 05/02/23 06/02/23 Unknown History ipratropium 0.5 mg-albuterol 3 mg ml inhalation 05/02/23 06/02/23 Unknown History (2.5 mg base)/3 mL nebulization soln magnesium oxide mg 05/02/23 06/02/23 Unknown History olanzapine 2.5 mg tablet mg 05/02/23 06/02/23 Unknown History potassium chloride 10 mEq meq PO 05/02/23 06/02/23 Unknown History tablet,extended release(part/cryst) potassium chloride 20 mEq meq PO 05/02/23 06/02/23 Unknown History tablet,extended release(part/cryst) sertraline 25 mg tablet mg 05/02/23 06/02/23 Unknown History sertraline 50 mg tablet 100 mg 05/02/23 06/02/23 Unknown History trazodone 50 mg tablet mg 05/02/23 06/02/23 Unknown History vitamin B complex 1 tablet PO DAILY 05/02/23 06/02/23 Unknown History mirabegron 50 mg tablet,extended 50 mg PO DAILY 12/14/23 Unknown History release 24 hr spironolactone 25 mg tablet 25 mg PO DAILY 12/14/23 Unknown History Allergies Allergy/AdvReac Type Severity Reaction Status Date / Time Penicillins Allergy Unknown Hives / Verified 05/05/24 13:58 Red Face Review of Systems 2 Review of Systems: All systems reviewed & are unremarkable except as noted in HPI and below PMFSH Past Medical History Medical History Seizure disorder Pulmonary hypertension Severe on echo in August 2021 with an estimated PASP of 63 mmHg. Diastolic congestive heart failure EF 60 to 65% in August 2021. Obstructive sleep apnea treated with BiPAP Depression Chronic respiratory failure with hypoxia and hypercapnia Asthma-COPD overlap syndrome Obesity hypoventilation syndrome Hypertension Deep venous thrombosis Gastroesophageal reflux disease Type 2 diabetes mellitus Diet-controlled with a recent A1c of 5.2%. Migraine headache Cerebrovascular accident Schizophrenia Surgical History Surgical History History of cardiac catheterization History of cholecystectomy History of sinus surgery History of arthroscopy of right knee History of section, classical History of left hip replacement Family History Family History Mother Heart disease Cancer Cerebrovascular accident Sibling Pacemaker Social History Social History Social History: Surrogate medical decision maker: Carri Rangel. Code status: Full code. Smoking packs per day: 1 Smoking cigarettes per day: 20.0 Years smoked: 21 Smoking pack-years: 21.00 Smoking status: Former smoker Tobacco type: cigarettes Second hand tobacco smoke exposure: Yes Alcohol intake: never Substance use: never Substance use type: does not use Lack of Transportation: No Lack of Food: Never True Current Housing: I Have Housing Concerned About Future Housing: No Difficulty Paying Gas/Electric Bills: No Difficulty Paying for Meds: No Currently Unemployed: No Education: High School Diploma/GED Difficulty w/ Childcare or Family Care: No Living arrangements: [facility] Additional living arrangements comments: Resident at [facility]. Likes to color and do crafts. Has 4 children. Occupation/Education: retired Additional occupation/education comments: Disabled. Spiritual care concerns: No Agree to blood products: Yes Exam 2 Narrative: GENERAL APPEARANCE: WELL-DEVELOPED, WELL-NOURISHED BACK DOES NOT LOOK IN PAIN OR DISTRESS SKIN: NORMAL COLOR HEAD: NORMOCEPHALIC, NONTRAUMATIC EYES: CLEAR CONJUNCTIVA ENT: OROPHARYNX NORMAL, EARS NORMAL, NOSE NORMAL CHRONIC NASAL CANNULA, 2 LITER/MINUTE NECK: SUPPLE, NONTENDER CHEST AND RESPIRATORY: AIRWAY PATENT, NO RESPIRATORY DISTRESS, NO ACCESSORY MUSCLE USE HEART: REGULAR RATE/RHYTHM ABDOMEN: SOFT, NONTENDER, NO ORGANOMEGALY, QUIET BOWEL SOUNDS VASCULAR: NORMAL PERIPHERAL PULSES, NORMAL CAPILLARY REFILL. MUSCULOSKELETAL: RIGHT KNEE IN A FLEXED POSITION, NO LOCALIZED TENDERNESS, PAIN WHEN I TRIED TO STRAIGHTEN OUT THE KNEE, NO BRUISES, NO SWELLING, NO DEFORMITY NEUROLOGIC: ALERT AND ORIENTED ? TO HER NAME AND AGE ONLY Course Vital Signs Vital signs: Vital Signs Temperature 36.4 C L 05/05/24 13:20 Pulse Rate 71 05/05/24 13:20 Respiratory Rate 16 05/05/24 13:20 Blood Pressure 136/109 H 05/05/24 13:20 Pulse Oximetry 99 05/05/24 13:20 Oxygen Delivery Room Air 05/05/24 13:20 Temperature 36.4 C L 05/05/24 13:20 Pulse Rate 74 05/05/24 16:48 Respiratory Rate 17 05/05/24 16:48 Blood Pressure 135/72 05/05/24 16:48 Pulse Oximetry 100 05/05/24 16:48 Oxygen Delivery Room Air 05/05/24 13:20 MDM - Weakness MDM Narrative Medical decision making narrative: PATIENT CAME WITH PROGRESSIVE WEAKNESS VITAL SIGNS ARE STABLE PHYSICAL EXAMINATION SHOWING PATIENT IS AWAKE, ALERT AND ORIENTED TO HER NAME AND AGE ONLY, COMPLAINING OF RIGHT KNEE PAIN WHICH IS PAINFUL WHEN YOU TRY TO STRAIGHTEN IT OUT. DIFFERENTIAL DIAGNOSIS INCLUDE ELECTROLYTE IMBALANCE, DEHYDRATION, URINARY TRACT INFECTION, PNEUMONIA, HYPOXIA, HYPERCAPNIA, RIGHT KNEE OSTEOARTHRITIS, RIGHT KNEE TRAUMA, LESS LIKELY CVA BLOOD WORKUP TODAY INCLUDES CBC, CMP, TROPONIN, LACTIC ACID, BLOOD CULTURE, CRP SHOWED PLATELET 51 COMPARED TO 195 /14 DAYS AGO CARBON DIOXIDE 35, CREATININE 1.7, BUN 41 URINALYSIS SHOWED EVIDENCE OF INFECTION CHEST X-RAY SHOWED NO ACUTE ABNORMALITIES CT HEAD WITHOUT CONTRAST SHOWED NO ACUTE ABNORMALITY X-RAY OF THE RIGHT KNEE SHOWED NO ACUTE OSSEOUS ABNORMALITY, OSTEOARTHRITIS EKG SHOWED NORMAL SINUS RHYTHM ADMIT TO HOSPITALIST DIAGNOSIS ACUTE URINARY TRACT INFECTION, THROMBOCYTOPENIA, VARSHA Differential Diagnosis Differential diagnosis: Likely other ( ABOVE) Medical Records Attestation: I reviewed the patient's medical records. Lab Data Attestation: I reviewed the patient's lab results. 05/05/24 13:40 05/05/24 13:40 Labs: Lab Results 05/05/24 05/05/24 05/05/24 Range/Units 13:40 13:47 13:55 WBC 9.9 (4.5-10.0) K/mm3 RBC 4.20 (4.2-5.4) M/mm3 Hgb 13.4 (12.0-15.0) g/dL Hct 42.4 (37.0-47.0) % MCV 101.0 H (80-100) fl MCH 31.9 (26-34) pg MCHC 31.6 L (32-36) g/dl RDW 13.6 (11.5-14.5) % Plt Count 51 L D (150-375) k/mm3 MPV 12.8 H (7.4-10.4) fl Immature Gran % (Auto) 0.4 (0-0.5) % Neut % (Auto) 76.0 H (45.5-73.1) % Lymph % (Auto) 9.1 L (18.3-44.2) % [place] % (Auto) 5.7 (2.6-8.5) % Eos % (Auto) 8.5 H (0-4.4) % Baso % (Auto) 0.3 (0.2-1.2) % Lymph # (Auto) 0.90 (0.9-3.2) K/mm3 [place] # (Auto) 0.6 (0.1-0.6) K/mm3 Eos # (Auto) 0.8 H (0-0.3) K/mm3 Baso # (Auto) 0.0 (0.0-0.1) K/mm3 Abs Immat Gran (auto) 0.04 H (0.00-0.031) K/mm3 Absolute Neuts (auto) 7.5 H (1.3-6.7) K/mm3 Absolute Nucleated RBC 0.000 (0.0-0.012) K/mm3 Band Neutrophils % Not Reportable Nucleated RBC % 0.0 (0.0-0.2) % Platelet Estimate Decreased (Adequate) % Immature Plt Fraction 20.7 H (0.9-11.2) % Schistocytes None seen PT 14.4 (11.1-14.7) Seconds INR 1.1 APTT 27.1 (22.3-36.8) Seconds Sodium 137 (137-145) mmol/L Potassium 4.7 (3.4-5.0) mmol/L Chloride 97 L (98-107) mmol/L Carbon Dioxide 35 H (22-30) mmol/L Anion Gap 5 (4-12) mmol/L BUN 41 H (7-17) mg/dL Creatinine 1.75 H (0.7-1.0) mg/dL Estim Creat Clear Calc 32 ml/min Estimated GFR 29 L (59 - ) Glucose 91 (65-110) mg/dL POC Capillary Glucose 85 (65-105) mg/dl Lactic Acid 1.3 (0.7-2.0) mmol/L Calcium 8.5 (8.4-10.2) mg/dL Total Bilirubin 0.5 (0.2-1.3) mg/dL AST 22 (14-36) U/L ALT 12 (6-35) U/L Alkaline Phosphatase 92 (38-126) U/L Total Creatine Kinase 22 L (30-135) U/L Troponin I < 0.012 (0.000-0.034) ng/mL C-Reactive Protein 4.2 H (<1.0) mg/dL Total Protein 7.0 (6.3-8.2) g/dL Albumin 3.4 L (3.5-5.1) g/dL TSH 0.847 (0.465-4.680) uIU/mL Urine Color Yellow (Yellow) Urine Appearance Turbid H (Clear) Urine pH 5.5 (5.0-9.0) Ur Specific [place] 1.020 (1.001-1.035) Urine Protein Trace (Negative) mg/dL Urine Glucose (UA) Negative (Negative) mg/dL Urine Ketones Trace H (Negative) mg/dL Ur Blood (Man) Negative (Negative) Urine Nitrate Negative (Negative) Urine Bilirubin Negative (Negative) Urine Urobilinogen 0.2 (<2.0) mg/dL Add Ur Microanalysis Reviewed Leukocyte Esterase Rfl 3+ H (Negative) JANNETTE/UL Urine RBC 0-2 (0-2) /hpf Urine WBC >100 H (0-3) /hpf Urine WBC Clumps Present H (None) /HPF Ur Squamous Epith Cells Few (Few) /hpf Urine Bacteria None seen /hpf Urine Casts >20 Hyaline Casts Present (None) /lpf Influenza A (RT-PCR) Negative (Negative) Influenza B (RT-PCR) Negative (Negative) RSV (RT-PCR) Negative (Negative) SARS-CoV-2 RNA (RT-PCR) Negative (Negative) ABG Data ABG results: 05/05/24 13:57 Puncture Site Right brachial ABG pH 7.363 ABG pCO2 55.5 H ABG pO2 80.3 ABG PO2/FiO2 Ratio 2.87 ABG HCO3 30.9 H ABG O2 Saturation 95.3 ABG O2 Content 18.2 ABG Base Excess 4.1 A-a Gradient 53.9 Oxyhemoglobin 94.0 Total Hemoglobin 13.7 O2 Delivery Device Nasal cannula O2 Liters/Min 2.0 FiO2 28 Imaging Data Radiologist's impression: Impressions Chest X-Ray 05/05/24 14:13 Impression: Clear lungs. Head CT 05/05/24 14:35 IMPRESSION: No acute intracranial findings. Knee X-Ray 05/05/24 14:41 IMPRESSION: No acute osseous abnormality right knee. Severe osteoarthritic changes. ECG Data EKG #1: Attestation: I personally reviewed and interpreted this ECG as follows: ECG completion date: 05/05/24 ECG completion time: 15:18 Interpretation: NORMAL SINUS RHYTHM AT 70 BEATS PER MINUTE, NONSPECIFIC T-WAVE ABNORMALITY, COMPARED TO EKG ON THE 6 OF THIS MONTH NO SIGNIFICANT ABNORMALITY Critical Care Time Critical Care Time Critical Care Time: No Discharge Plan Discharge Clinical Impression: Urinary tract infection, VARSHA (acute kidney injury), Thrombocytopenia Patient Disposition: Still a Patient Condition: Guarded Prognosis Patient Language: Faroese Prescriptions: No Action mirabegron 50 mg tablet extended release 24 hr 50 mg PO DAILY spironolactone 25 mg tablet 25 mg PO DAILY ipratropium-albuterol 0.5 mg-3 mg(2.5 mg base)/3 mL solution for nebulization 3 ml inhalation QID Qty: 180 6RF polyethylene glycol 3350 17 gram Powder In Packet 17 g PO DAILY fluticasone propionate [Flovent HFA] 110 mcg/actuation HFA aerosol inhaler 1 puff INHALATION BID divalproex 500 mg tablet extended release 24 hr 500 mg PO DAILY Rx Instructions: Divalproex 500 mg am divalproex 250 mg tablet extended release 24 hr 750 mg PO HS Rx Instructions: Take 250 mg PO HS, in addition to 500 mg PO HS - to equal 750 mg HS amlodipine [Norvasc] 5 mg Tablet 10 mg PO DAILY Qty: 30 0RF furosemide 40 mg tablet atorvastatin 40 mg tablet benztropine 0.5 mg tablet ipratropium-albuterol 0.5 mg-3 mg(2.5 mg base)/3 mL solution for nebulization INHALATION haloperidol 5 mg tablet trazodone 50 mg tablet gabapentin 400 mg capsule amlodipine 5 mg tablet olanzapine 2.5 mg tablet acetaminophen 500 mg Tablet 1,000 mg TID carvedilol 3.125 mg tablet carbamazepine 200 mg tablet potassium chloride 20 mEq tablet,ER particles/crystals PO famotidine 20 mg tablet ferrous sulfate 325 mg (65 mg iron) tablet divalproex 500 mg tablet extended release 24 hr PO docusate sodium 100 mg capsule PO sertraline 25 mg tablet vitamin B complex [B Complex-Vitamin B12] Tablet 1 tablet PO DAILY hydralazine 50 mg tablet aspirin 81 mg Tablet 81 mg PO DAILY ergocalciferol (vitamin D2) 1,250 mcg (50,000 unit) capsule albuterol sulfate 90 mcg/actuation HFA aerosol inhaler INHALATION sertraline 50 mg tablet 100 mg fluticasone propionate 110 mcg/actuation HFA aerosol inhaler INHALATION aripiprazole 30 mg tablet divalproex 250 mg tablet extended release 24 hr PO potassium chloride 10 mEq tablet,ER particles/crystals PO guaifenesin [Mucinex] 600 mg Tablet Extended Release 12hr PO magnesium oxide 400 mg magnesium Tablet cephalexin 500 mg capsule 500 mg PO Q12H 7 Days Qty: 14 0RF benztropine 0.5 mg tablet 0.5 mg PO Q12H carbamazepine 200 mg tablet 200 mg PO Q12H hydralazine 100 mg tablet 100 mg PO TID haloperidol 5 mg Tablet 5 mg PO Q12H sertraline 25 mg Tablet 25 mg PO DAILY Rx Instructions: GIVE WITH 50MG TO EQUAL 75MG DAILY sertraline 50 mg Tablet 50 mg PO DAILY Rx Instructions: take with 25mg to equal 75 mg daily trazodone 50 mg Tablet 50 mg PO HS albuterol sulfate [Proventil HFA] 90 mcg/actuation Hfa Aerosol Inhaler 2 puff inhalation Q6HRT PRN (Reason: Shortness Of Breath) Qty: 6.7 0RF carvedilol 3.125 mg Tablet 3.125 mg PO Q12H Artificial Tears 1 drp EACH EYE Q6H PRN (Reason: Dry Eye(S)) atorvastatin 20 mg tablet 20 mg PO HS olanzapine 10 mg tablet 10 mg PO Q12H gabapentin 400 mg Capsule 400 mg PO TID famotidine 20 mg tablet 20 mg PO DAILY ferrous sulfate 325 mg (65 mg iron) tablet 325 mg PO DAILY docusate sodium 100 mg capsule 100 mg PO DAILY ergocalciferol (vitamin D2) 1,250 mcg (50,000 unit) capsule 1,250 mcg PO MONTHLY Rx Instructions: of every month aripiprazole 30 mg tablet 30 mg PO DAILY aspirin 81 mg Tablet 81 mg PO DAILY guaifenesin [Mucus Relief ER] 600 mg Tablet Extended Release 12hr 600 mg PO Q12HR Qty: 30 0RF magnesium oxide 400 mg (241.3 mg magnesium) Tablet 400 mg PO QAM Qty: 30 0RF potassium chloride 20 mEq packet 20 meq PO DAILY Qty: 30 0RF furosemide 40 mg tablet 40 mg PO DAILY Qty: 30 0RF Follow-up/Referrals: UNKNOWN,DOCTOR [Primary Care Provider] -
--- NOTE | 2024-05-05 13:30 | ECG_ITS ---
Test Date: 2024-05-05 13:37:48 Measurements Intervals [place] Rate: 70 P: 51 HI: 189 QRS: 32 QRSD: 86 T: 120 QT: 407 QTc: 439 Interpretive Statements SINUS RHYTHM NONSPECIFIC T-WAVE ABNORMALITY Compared to ECG 04/21/2024 18:21:33 NO SIGNIFICANT CHANGES Electronically Signed On 05-06-2024 18:19:17 CDT by Deborah Kumar M.D.
[2024-05-05] MEDS: SODIUM CHLORIDE 0.9% IV 1,000 ML 500 ML IV CONT (13:45)
[2024-05-05 14:00] LABS: Glucose Point of Care 85 mg/dl (65-105)
[2024-05-05 14:01] LABS: Alveolar/Arterial O2 Gradient 53.9 mmHg; Base Excess ABG 4.1 mEq/l (+/-2.0); Fractional Inspired Oxygen 28 %; HCO3 ABG 30.9 mEq/l (22.0-26.0); Oxygen Content ABG 18.2 %vol (16.0-22.0); Oxygen Saturation ABG 95.3 % (95.0-100.0); PCO2 ABG 55.5 mmHg (35.0-45.0); PO2 ABG 80.3 mmHg (80.0-100.0); PO2 FiO2 Ratio Arterial Blood 2.87 %; Total Hemoglobin 13.7 g/dL (12.0-18.0); pH ABG 7.363 (7.350-7.450)
[2024-05-05 14:02] LABS: Device NASAL CANNULA; Site Drawn RIGHT BRACHIAL
[2024-05-05 14:12] LABS: Basophils Percent Auto 0.3 % (0.2-1.2); Eosinophils Absolute Auto 0.8 K/mm3 (0-0.3); Eosinophils Percent Auto 8.5 % (0-4.4); Hematocrit 42.4 % (37.0-47.0); Hemoglobin 13.4 g/dL (12.0-15.0); Immature Granulocyte Absolute 0.04 K/mm3 (0.00-0.031); Immature Granulocyte Percent A 0.4 % (0-0.5); Immature Platelet Fraction Pct 20.7 % (0.9-11.2); Lymphocytes Percent Auto 9.1 % (18.3-44.2); Mean Corpuscular HGB Conc 31.6 g/dl (32-36); Mean Corpuscular Hemoglobin 31.9 pg (26-34); Mean Platelet Volume 12.8 fl (7.4-10.4); Monocytes Absolute Auto 0.6 K/mm3 (0.1-0.6); Monocytes Percent Auto 5.7 % (2.6-8.5); Neutrophils Absolute Auto 7.5 K/mm3 (1.3-6.7); Platelet Count Result 51 k/mm3 (150-375); Red Cell Distribution Width 13.6 % (11.5-14.5); White Blood Count 9.9 K/mm3 (4.5-10.0)
[2024-05-05 14:18] LABS: INR 1.1; Prothrombin Time 14.4 Seconds (11.1-14.7)
[2024-05-05 14:19] LABS: Partial Thromboplastin Time 27.1 Seconds (22.3-36.8)
[2024-05-05 14:21] LABS: Lactic Acid Reflex 1.3 mmol/L (0.7-2.0)
[2024-05-05 14:22] LABS: Alanine Aminotransferase 12 U/L (6-35); Albumin Level 3.4 g/dL (3.5-5.1); Alkaline Phosphatase 92 U/L (38-126); Anion Gap 5 mmol/L (4-12); Aspartate Amino Transferase 22 U/L (14-36); Bilirubin,Total 0.5 mg/dL (0.2-1.3); Blood Urea Nitrogen 41 mg/dL (7-17); Calcium 8.5 mg/dL (8.4-10.2); Carbon Dioxide 35 mmol/L (22-30); Chloride 97 mmol/L (98-107); Creatine Kinase 22 U/L (30-135); Estimated CRCL calculation 32 ml/min; Estimated Glomerular Filt Rate 29; Glucose 91 mg/dL (65-110); Potassium 4.7 mmol/L (3.4-5.0); Sodium 137 mmol/L (137-145)
[2024-05-05 14:26] LABS: Add Urine Microscopic? YES; Appearance Urine Turbid (Clear); Bacteria Urine None Seen /hpf; Bilirubin Urine Negative (Negative); Blood Urine Negative (Negative); Color Urine Yellow (Yellow); Glucose Urine UA Negative (Negative); Hyaline Casts Urine Present /lpf; Ketones Urine Trace mg/dL (Negative); Leukocyte Esterase Ur 3+ LEU/UL (Negative); Need Manual Microscopic Reviewed; Nitrate Urine Negative (Negative); Non Pathogenic Casts >20; Protein Urine Trace mg/dL (Negative); RBC Urine 0-2 /hpf (0-2); Squamous Epithelial Cell Urine Few /hpf (Few); Urobilinogen Urine 0.2 mg/dL (<2.0); WBC Clumps Urine Present /HPF; WBC Urine >100 /hpf (0-3); pH Urine 5.5 (5.0-9.0)
--- OUTSIDE RECORDS SUMMARY | 2024-05-05 14:32 | XMS_ITS | Clinical Summary ---
Author Organization [facility] Address [address] [place] [address] Care Team Providers Care Straightedge Man Name Role Phone Unavailable Primary Care Provider [...] Encounters Date Type Department Care Team Description 04/23/2024 External Device Data ST[facility] ABSTRACTION Provider, Abstract 04/23/2024 External Device Data [facility] ABSTRACTION Provider, Abstract 04/20/2024 External Device Data [facility] ABSTRACTION Provider, [...] Comments Blood Pressure 161/97 01/20/2024 10:02 AM CASSANDRA ARCHITECT Pulse 71 01/20/2024 10:02 AM CASSANDRA ARCHITECT Temperature 36.3 C (97.3 F) 01/20/2024 10:02 AM CASSANDRA ARCHITECT Respiratory Rate 16 01/20/2024 10:02 AM CASSANDRA ARCHITECT Oxygen Saturation 98% 01/20/2024 10:02 AM CASSANDRA ARCHITECT Inhaled Oxygen Concentration - - Weight 81.6 kg (180 lb) 01/20/2024 10:02 AM CASSANDRA ARCHITECT Height 154.9 cm (5' 1 ) 11/21/2021 11:32 AM CDT Body Mass Index 34.01 11/21/2021 11:32 AM CDT Plan of Treatment Upcoming Encounters Date Type Department Care Team (Late st Contact Info) Description 07/21/2024 10:00 AM CDT Office Visit [facility] Oncology and Hematology - [place] [address] [place] [address] Carrington Matta MD [address] [place] [address] Health Maintenance Due Date Last [...] (09/04/2021) Anatomical Region Laterality Modality Breast Bilateral Mammography us Abstract Provider MAMMO ORDERABLES Final Result from Last 3 Months or Most Recently Relevant to Health Maintenance [place] [address] [place] [address] PLAN MEDICAID
--- OUTSIDE RECORDS SUMMARY | 2024-05-05 14:32 | XMS_ITS | Clinical Summary ---
Author Organization [facility] Address [address] [address] Care Team Providers Care Biotechnician Name Role Phone Missael Boyce MD Primary Care Provider [phone] Source Comments [facility],non-owned Affiliates and Associated Physician Practices is amultiple site organization consisting of ambulatory clinics and hospital sitesin [place], [place], [place] and [place]. This disclosure is being madepursuant to the Care Everywhere program and may not contain all information available regarding this patient. Last updated 17.[facility] [employer] Allergies Active Allergy Reactions Criticality Noted Date [...] mouth once daily Active Cholecalciferol (VITAMIN D3) 20522 UNITS capsule Take 50,000 Units by mouth [...] to complete this topic MENINGOCOCCAL (Group B) VACC INE SHARED DECISION-MAKING Aged Out No longer eligibl e based on patient's age to complete this topic MENINGOCOCCAL GROUPS A/C/Y/W VACCINE Aged Out No longer eligible b ased on patient's age to complete this topic Care Teams Biotechnician Relationship Specialty Start Date End Date Missael Boyce MD [address] [place] [phone] PCP - General Internal Medicine 08/22/15
--- OUTSIDE RECORDS SUMMARY | 2024-05-05 14:32 | XMS_ITS | Clinical Summary ---
Author Organization [facility] Address [address] [place] [phone] Care Team Providers Care Metal Cleaner Name Role Phone Kolby Sung MD Primary Care Provider [phone] Colten Kimble MD Unavailable Allergies Active Allergy [...] Description 06/02/2024 10:00 AM CDT Office Visit [facility] [address] [place] [phone] Colten Kimble MD [address], [facility] [address] [place] [address] Health Maintenance Due Date Last Done Comments [...] Insurance MEDICAID [employer] Care Teams Metal Cleaner Relationship Specialty Start Date End Date Kolby Sung MD [address] [facility] [address] [place] [address] PCP - General Internal Medicine 10/15/23 Colten Kimble MD [address] [facility] [address] [place] [address] Consulting Physician Urology 10/15/23
--- OUTSIDE RECORDS SUMMARY | 2024-05-05 14:32 | XMS_ITS | Data Portability ---
Author Organization [facility] [place] Address [address] [place] [address] Assessment Encounter Date Assessment Date Assessment LastModified [...] [address], [place] [address] , Nithin Corona ra, DO, Labor atory [...] david resul ts of Cheri l or [place] earl are deter mined by calcu latin [...] e danilo cteri stics deter mined by [employer], [employer] d/b/a Path rou. It has not been clear ed or appro demetra by the U.S. Food and Drug Admin istra tion. The FDA has deter mined that such clear ance or appro yevgeniy is not neces kimberly. Perti nent refer ence inter vals are avail able from the labor atory on reque st. Test( s) perfo rmed by [employer] Patho logis [employer], [employer], d/b/a Path rou, [address], [place] [address] , Nithin Corona ra, DO, Labor atory Direc tor. Not Available [facility] ([facility]) [address], [place], [address], 11/24/2019 17:09:25 11/22/19 20 11/24/2019 bacte rial [...] ing error . Test perfo rmed by [employer] Patho logis [employer], [employer], d/b/a PathG roued, [address], [place] [address] , Nithin Corona ra, DO, Labor atory [...] david resul ts of Cheri l or Redmond earl are deter mined by calcu latin [...] rmed by Assoc iated Patho logis ts, [employer], d/b/a Estefani hewitt, [address], [place] [address] , Nithin Corona ra, DO, Labor atory Direc tor. Not Available [facility] ([facility]) [address], [place], [address], 11/24/2019 17:09:25 11/22/19 20 11/24/2019 bacte rial [...] perfo rmed by Assoc iated Patho logis [employer], [employer], d/b/a Estefani hewitt, [address], [place] [address] , Nithin Corona ra, , Labor atory [...] david resul ts of Cheri l or [place] earl are deter mined by calcu latin [...] e danilo cteri stics deter mined by [employer], [employer] d/b/a [employer]. It has not been clear ed or appro demetra by the U.S. Food and Drug Admin istra tion. The FDA has deter mined that such clear ance or appro yevgeniy is not neces kimberly. Perti nent refer ence inter vals are avail able from the labor atory on reque st. Test( s) perfo rmed by [employer] Patho logis ts, [employer], d/b/a PathG roup, [address], [place] [address] , Nithin Corona ra, DO, Labor atory Direc tor. Not Available [facility] ([facility]) [address], [place], [address], 11/24/2019 17:09:25 09/20/19 21 09/19/2020 CT/GC AND TRICH OMONA S VAGIN REGGIE (RRNA ), SWAB chlamydia trachomatis, PCR Negati ve negati ve Not Available [facility] (Lab) [address] [facility] [address], [place], [address], 09/20/2020 14:17:59 09/20/19 21 09/19/2020 CT/GC AND TRICH OMONA S VAGIN REGGIE (RRNA ), SWAB neisseria gonorrhoeae, PCR Negati ve negati ve Not Available [facility] (Lab) [address], [place], [address], 09/20/2020 14:17:59 09/20/19 21 09/19/2020 CT/GC AND TRICH OMONA S VAGIN REGGIE (RRNA ), SWAB trichomonas vaginalis ribosomal RNA (rrna) Negati ve negati ve Not Available [facility] (Lab) [address] [facility], [place], [address], 09/20/2020 14:17:59 09/20/19 21 09/19/2020 VAGIN ITIS/ VAGIN OSIS, DNA PROBE elbert sp. detection, direct probe Negati ve negati ve Not Available [facility] (Lab) [address] [facility], [place], [address], 09/20/2020 14:17:59 09/20/19 21 09/19/2020 VAGIN ITIS/ VAGIN OSIS, DNA PROBE gardnerella vag. detection, direct probe Negati ve negati ve Not Available [facility] (Lab) [address] [facility], [place], [address], 09/20/2020 14:17:59 09/20/19 21 09/19/2020 VAGIN ITIS/ VAGIN OSIS, DNA PROBE trichomonas vag. detection, direct probe Negati ve negati ve Not Available [facility] (Lab) [address] [facility], [place], [address], 09/20/2020 14:17:59 04/10/19 22 04/10/2021 VAGIN ITIS/ VAGIN OSIS, DNA PROBE elbert sp. detection, direct probe Negati ve negati ve Not Available [facility] (Lab) [address] [place], [address], 04/11/2021 12:03:11 04/10/19 22 04/10/2021 VAGIN ITIS/ VAGIN OSIS, DNA PROBE gardnerella vag. detection, direct probe Negati ve negati ve Not Available [facility] (Lab) [address] [place], [address], 04/11/2021 12:03:11 04/10/19 22 04/10/2021 VAGIN ITIS/ VAGIN OSIS, DNA PROBE trichomonas vag. detection, direct probe Negati ve negati ve Not Available [facility] (Lab) [address] [place], [address], 04/11/2021 12:03:11 Result Notes None recorded. Medical Equipment None Reported. Allergies Allergen ID Allergen Name Allergen Category Reaction Reaction Severity Criticality Documentation Date Start Date Code Code System Note Provider Name and Address Organization Details Recorded Time 2280 Product containin g penicilli n (product) medicatio n Not available Not available Not available 11/22/2019 19398 8001 SNDAY Villasenor [facility] [place] - [facility] 0 13:41:37 Medications Name Sig [...] Address Organization Details Last Updated DateTime 09/19/2020 31816.96 g 120 mm[Hg] 78 mm[Hg] Elida Pizarro [facility] 09/19/2020 12:32:38 Date Recorded Body weight Systolic blood pressure Diastolic blood pressure Provider Name and Address Organization Details Last Updated DateTime 04/10/2021 50908.96 g 130 mm[Hg] 80 mm[Hg] Elida Pizarro [facility] 04/10/2021 11:29:19 Date Recorded Systolic blood pressure Diastolic blood pressure Provider Name and Address Organization Details Last Updated DateTime 11/22/2019 130 mm[Hg] 88 mm[Hg] Ashanti Villasenor [facility] 11/22/2019 13:53:22 Social History Question Answer Notes LastModified by Organizat ion Details LastModified Time Tobacco Smoking Status Never Smoker Ashanti fulton [facility] 11/22/2019 13:42:05 What Is Your [...] Anxious, Or Unable To Sleep At Night)? [id number] Information not available 09/19/2020 Do You Use [...] SNOMED-CT Code Diagnosis ICD10 Code Diagnosis Note [id number] Kezia Treviño [facility] [address] [address] 11/22/2019 14:00:11 11/22/2019 17:10:09 Vaginitis [id number] N76.0 With spring encaser present we agreed to send medication for probable yeast infection; will send swabs & contact with results if additional treatment needed. campaign worker will help submit request to obtain records so that we can determine HOME THEATER SPECIALIST/OB History in regards to colonoscop y/Dexa/Pap Hx etc. Much assistance needed to prepare & during exam. Mammo order given. Time spent in visit is a total of 30 mins with at least 50% of visit consisting of counseling and review of plan of care. [id number] Kezia Treviño [facility] [address],[place] [address] 09/19/2020 12:13:45 09/19/2020 13:17:10 Vaginitis [id number] N76.0 Suspect BV infectionR x sent to [facility] contact with results if changes to plan of care need to be updated. Time spent in visit is a total of 15 mins with at least 50% of visit consisting of counseling and review of plan of care.Addit ional precaution adriana measures were taken to minimize potential exposure to the Covid-19 virus during this patient s visit, including available hand air force senior officer upon arrive, temperatur e check and being asked a series of screening questions. All staff wore face coverings during this encounter, as well as provided additional cleaning and sanitizing of all surfaces, including countertop s, pens, chairs, door handles, light switches, etc, prior to and following the patient s visit. [id number] Kezia Treviño [facility] [address],[facility] [place] [address] 04/10/2021 10:50:24 04/10/2021 14:02:14 Vaginitis [id number] N76.0 Suspect BV infectionR x sent to [facility] update on results when returned. Time spent in visit is a total of 15 mins with at least 50% of visit consisting of counseling and review of plan of care.Addit ional precaution adriana measures were taken to minimize potential exposure to the Covid-19 virus during this patient s visit, including available hand air force senior officer upon arrive, temperatur e check and being [...] Pena Member ID Guarantor Name 11/22/2019 1 [facility] (MEDICAID HMO) [id number] 0003 Yenny Hernandez [id number] Yenny Hernandez 09/19/2020 1 [facility] (MEDICAID HMO) [id number] 0003 Yenny Hernandez [id number] Yenny Hernandez 04/10/2021 1 [facility] (MEDICAID HMO) [id number] 0003 Yenny Hernandez [id number] Yenny Hernandez Notes Date Note Type Note Provider Name and Address Organization Details Recorded Time 11/22/2019 text/html Vaginal/Vulvar ProblemReported bypatient.Notes:Bridgett hernandez is a 69yo AA female here with spring encaser from assisted living facility due to dementia and other health issues. She is a poor historian due to dementia. She has urinary incontinence for which she wears adult diaper. Unable to obtain accurate HOME THEATER SPECIALIST/OB History from patient. campaign worker with limited knowledge of patient history. Patient voices vaginal irritation & some itching. ??Discharge?? Wheel chair bound. Assistance to dress required. Gait unstable. DONNY Murry [address], [place], [address], [facility] 11/22/2019 16:19:47 09/19/2020 text/html Vaginal/Vulvar ProblemReported bypatient.Location:[facility] Onset/Timing:gradual Duration:present for 2-4 weeks Quality:itching; irritation; Thick and thin white to yellow d/c with odor at times. Itching+ Severity:moderate Context:not sexually active Alleviating Factors:none Aggravating Factors:none Associated Symptoms:no vaginal pain; no vulvar swelling/erythema; no vulvar pain; no vulvar lesions; no pelvic pain; no dyspareunia; no dysuria; no fever; no abdominal pain;vaginal itching;vaginal irritation;vulvar itching/irritation DONNY Murry [address], [place], [address], [facility] 09/19/2020 12:53:00 04/10/2021 text/html Vaginal/Vulvar ProblemReported bypatient.Notes:Here today for complaints of fishy vaginal odor x 1wk.She is wheel chair bound but is able to stand and assist with mobilization.Her assistant maintenance manager from the home she lives in is [...] N/V/F/D/C Kezia Treviño, [facility]- [address], [place], [address], [place] - [facility] 04/10/2021 13:59:10 OBGyn Episode No OBEpisode recorded.
--- OUTSIDE RECORDS SUMMARY | 2024-05-05 14:32 | XMS_ITS | CONTINUITY OF CARE DOCUMENT ---
Author Name sonny dennis Address Unknown Organization [facility] Address [address] [place] [address] Phone [phone] Care Team Providers Care Staffing Program Manager Name Role Phone Kevin Crawford MD Unavailable [phone] Kevin Crawford MD Unavailable [phone] INSURANCE PROVIDERS Payer name Policy type / Coverage type [employer] ID [place] MEDICA[employer] (2) Medicaid [id number]
[2024-05-05 14:34] LABS: Troponin I < 0.012 ng/mL (0.000-0.034)
[2024-05-05 14:48] LABS: Influenza A QL RT-PCR Negative (Negative); Influenza B QL RT-PCR Negative (Negative); Platelet Estimate Decreased (Adequate); RSV RNA, RT-PCR Negative (Negative); SARS-CoV-2 RNA PCR Negative (Negative)
[2024-05-05 14:49] LABS: Schistocytes None Seen
[2024-05-05 14:52] LABS: Thyroid Stimulating Hormone 0.847 uIU/mL (0.465-4.680)
[2024-05-05 16:51] LABS: CRP 4.2 mg/dL (<1.0)
--- NOTE | 2024-05-05 17:54 | P.HP_ITS ---
H&P: HPI History of Present Illness Date/Time: 05/05/24 17:54 Chief Complaint: Weakness, Poor Appetite Narrative: 73 y/o F presents here with weakness and poor appetite with PMH of seizures, pulmonary hypertension, CHF, NIGEL on BiPAP, chronic respiratory failure, asthma/COPD overlap, obesity with hypoventilation syndrome, GERD, diet- controlled diabetes, CVA, and schizophrenia. The patient presents here from [facility] via EMS for further evaluation of generalized weakness. The patient is currently orientated to self only. HPI obtained through chart review, provider report, and EMS report. halfway reported to EMS that the patient began feeling generally weak approximately 2 days ago and is accompanied by reduced intake. She is currently reports that she might have a fever, dysuria, and urinary frequency. Denies abdominal pain, nausea, vomiting, diarrhea. She was also recently seen at [facility] on 04/21/2024 for evaluation of lethargy. During this visit it was noted that she had a mild increase in her renal function and she was diagnosed with a UTI. She was discharged on Keflex 500 mg b.i.d. x7 days. Urine culture grew pansensitive E coli. The patient is a poor historian. Initial VS at presentation: 97.5? F, HR 71, R 16, 136/109, and 99% on RA. ED workup showed: No leukocytosis, no anemia, normal coags, creatinine 1.75 and GFR 29 (previously 1.55 and GFR 33 on 04/21/24, , CK 22, CRP 4.2, TSH 0.847. UA suspicious for UTI. Viral PCR negative. CXR showed clear lungs. Head CT showed no acute intracranial findings. Knee XR, right, showed no acute osseous abnormality and severe osteoarthritic changes. Initial EKG showed sinus rhythm, nonspecific T-wave abnormality, rate 70 (awaiting formal read). Review of Systems Review of Systems: ROS unobtainable: Yes unobtainable due to mental status (A&O x1) [facility] Past Medical History Medical History Seizure disorder Pulmonary hypertension Severe on echo in August 2021 with an estimated PASP of 63 mmHg. Diastolic congestive heart failure EF 60 to 65% in August 2021. Obstructive sleep apnea treated with BiPAP Depression Chronic respiratory failure with hypoxia and hypercapnia Asthma-COPD overlap syndrome Obesity hypoventilation syndrome Hypertension Deep venous thrombosis Gastroesophageal reflux disease Type 2 diabetes mellitus Diet-controlled with a recent A1c of 5.2%. Migraine headache Cerebrovascular accident Schizophrenia Surgical History Surgical History History of cardiac catheterization History of cholecystectomy History of sinus surgery History of arthroscopy of right knee History of section, classical History of left hip replacement Family History Family History Mother Heart disease Cancer Cerebrovascular accident Sibling Pacemaker Social History Social History Social History: Surrogate medical decision maker: Carri Rangel. Code status: Full code. Smoking packs per day: 1 Smoking cigarettes per day: 20.0 Years smoked: 21 Smoking pack-years: 21.00 Smoking status: Former smoker Second hand tobacco smoke exposure: Yes Alcohol intake: unknown Substance use: unknown Substance use type: does not use Lack of Transportation: No Lack of Food: Never True Current Housing: I Have Housing Concerned About Future Housing: No Difficulty Paying Gas/Electric Bills: No Difficulty Paying for Meds: No Currently Unemployed: No Education: High School Diploma/GED Difficulty w/ Childcare or Family Care: No Living arrangements: long term Additional living arrangements comments: Resident at [facility]. Likes to color and do crafts. Has 4 children. Occupation/Education: retired Additional occupation/education comments: Disabled. Spiritual care concerns: No Agree to blood products: Yes Meds Home Medications and Allergies Home Medications ?Medication ?Instructions ?Recorded ?Confirmed ?Type benztropine 0.5 mg tablet 0.5 mg PO Q12H 01/24/20 05/05/24 History carbamazepine 200 mg tablet 200 mg PO Q12H 01/24/20 05/05/24 History haloperidol 5 mg tablet 5 mg PO TID 01/25/20 05/05/24 History trazodone 50 mg tablet 50 mg PO HS 01/25/20 05/05/24 History carvedilol 3.125 mg tablet 3.125 mg PO Q12H 05/22/21 05/05/24 History atorvastatin 20 mg tablet 40 mg PO HS 09/10/21 05/05/24 History gabapentin 400 mg capsule 400 mg PO TID 04/29/22 05/05/24 History ipratropium 0.5 mg-albuterol 3 mg 3 ml inhalation QID #180 mL 06/25/22 05/05/24 Rx (2.5 mg base)/3 mL nebulization soln fluticasone propionate 110 1 puff inhalation BID 08/09/22 05/05/24 History mcg/actuation HFA aerosol inhaler (Flovent HFA) polyethylene glycol 3350 17 gram 17 g PO DAILY 08/09/22 05/05/24 History oral powder packet divalproex 250 mg tablet,extended 750 mg PO HS 08/10/22 05/05/24 History release 24 hr aripiprazole 30 mg tablet 30 mg PO DAILY 08/25/22 05/05/24 History aspirin 81 mg tablet 81 mg PO DAILY 08/25/22 05/05/24 History ergocalciferol (vitamin D2) 1,250 1,250 mcg PO MONTHLY 08/25/22 05/05/24 History mcg (50,000 unit) capsule famotidine 20 mg tablet 20 mg PO DAILY 08/25/22 05/05/24 History ferrous sulfate 325 mg (65 mg 325 mg PO DAILY 08/25/22 05/05/24 History iron) tablet guaifenesin 600 mg tablet, 600 mg PO Q12HR #30 tabs 08/28/22 05/05/24 Rx extended release 12 hr (Mucus Relief ER) magnesium oxide 400 mg (241.3 mg 400 mg PO QAM #30 tabs 08/28/22 05/05/24 Rx magnesium) tablet potassium chloride 20 mEq oral 20 meq PO DAILY #30 ea 08/28/22 05/05/24 Rx packet acetaminophen 500 mg tablet 1,000 mg PO TID PRN pain 05/02/23 05/05/24 History albuterol sulfate 90 mcg/actuation 2 puff inhalation QID 05/02/23 05/05/24 History aerosol inhaler amlodipine 5 mg tablet 10 mg PO DAILY 05/02/23 05/05/24 History divalproex 500 mg tablet,extended 500 mg PO Q12H 05/02/23 05/05/24 History release 24 hr docusate sodium 100 mg capsule 100 mg PO DAILY 05/02/23 05/05/24 History hydralazine 50 mg tablet 50 mg PO TID 05/02/23 05/05/24 History olanzapine 2.5 mg tablet 2.5 mg PO BID 05/02/23 05/05/24 History sertraline 25 mg tablet 25 mg PO Q24H 05/02/23 05/05/24 History sertraline 50 mg tablet 100 mg PO Q24H 05/02/23 05/05/24 History vitamin B complex 1 tablet PO DAILY 05/02/23 05/05/24 History spironolactone 25 mg tablet 25 mg PO DAILY 12/14/23 05/05/24 History furosemide 40 mg tablet 40 mg PO BID 05/05/24 05/05/24 History oxybutynin chloride 10 mg 10 mg PO DAILY 05/05/24 05/05/24 History tablet,extended release 24 hr Allergies Allergy/AdvReac Type Severity Reaction Status Date / Time Penicillins Allergy Unknown Hives / Verified 05/05/24 13:58 Red Face Vital Signs Vital Signs - 24 hr 05/05/24 13:20 05/05/24 13:30 05/05/24 14:01 Temperature 97.5 F L Pulse Rate 71 71 72 Respiratory Rate 16 16 Blood Pressure 136/109 H 122/66 Pulse Oximetry 99 100 Oxygen Delivery Room Air 05/05/24 14:46 05/05/24 16:48 05/05/24 17:30 Temperature Pulse Rate 69 74 74 Respiratory Rate 15 17 17 Blood Pressure 135/72 141/80 H Pulse Oximetry 100 100 100 Oxygen Delivery Exam Narrative: AA. A/O to self only. otherwise fine. Const: General: comfortable and no acute distress Other: , female, nontoxic appearance HENMT: Face/Nose/Sinus: Normal nares present Mouth: Yes moist mucous membranes Eyes: General: appearance normal, both eyes and all related structures Sclera: sclerae normal Pupils: Equal, round and reactive pupils present EOM: EOMs intact bilaterally Resp: Effort & Inspection: normal respiratory effort Auscultation: clear to auscultation bilaterally Cardio: Rate: regular rate Rhythm: regular rhythm Other: S1-S2 present without murmur, rub, ectopy GI: Other: Abdomen soft, nondistended, nontender. Normoactive bowel sounds in all quadrants. Skin: General skin exam: normal color and no rashes or lesions noted Wounds: no wounds Neuro: Speech: normal speech Motor exam (neuro): 5/5 motor strength present throughout Sensory Exam: normal sensation Other: A&O x1, self only. Extrem: General: normal to inspection Psych: Mental Status: mental status grossly normal Affect: normal affect Other: Poor insight and judgment, very pleasant. H&P: Results Labs Labs: Short CBC 05/05/24 Range/Units 13:40 WBC 9.9 (4.5-10.0) K/mm3 Hgb 13.4 (12.0-15.0) g/dL Hct 42.4 (37.0-47.0) % Plt Count 51 L D (150-375) k/mm3 BMP 05/05/24 13:40 Sodium 137 Potassium 4.7 Chloride 97 L Carbon Dioxide 35 H BUN 41 H Creatinine 1.75 H Glucose 91 Calcium 8.5 Cardiac Enzymes 05/05/24 Range/Units 13:40 Total Creatine Kinase 22 L (30-135) U/L Troponin I < 0.012 (0.000-0.034) ng/mL Liver Function 05/05/24 Range/Units 13:40 Total Bilirubin 0.5 (0.2-1.3) mg/dL AST 22 (14-36) U/L ALT 12 (6-35) U/L Alkaline Phosphatase 92 (38-126) U/L Albumin 3.4 L (3.5-5.1) g/dL Urine 05/05/24 Range/Units 13:55 Urine Color Yellow (Yellow) Urine Appearance Turbid H (Clear) Urine pH 5.5 (5.0-9.0) Ur Specific [place] 1.020 (1.001-1.035) Urine Protein Trace (Negative) mg/dL Urine Glucose (UA) Negative (Negative) mg/dL Assessment and Plan Assessment and plan (1) VARSHA (acute kidney injury): Code(s): N17.9 - Acute kidney failure, unspecified Status: Acute Assessment and Plan: - labs: 05/05/2024 1.75 and GFR 29 04/21/2024 1.55 and GFR 33 05/02/2023 0.5 and normal GFR - renal ultrasound - add CK, urine sodium, protein/creatinine, urea - UA suspicious for UTI, see below. ABX initiated. - bladder scan for postvoid residual - monitor I&Os - IV fluids: NS at 150 mL/hour - trend renal function - trend electrolytes, correct as needed (2) Urinary tract infection: Qualifiers: Hematuria presence: without hematuria Urinary tract infection type: acute cystitis Qualified Code(s): N30.00 - Acute cystitis without hematuria Code(s): N39.0 - Urinary tract infection, site not specified Status: Acute Assessment and Plan: - UA: Turbid, trace ketones, 3+ leuks, greater than 100 WBC, WBC clumps present, few epithelial cells, no bacteria. - UC pending - previous micro reviewed, pansensitive E coli on 04/21/2024 - started on Ceftriaxone on 05/05 (3) Type 2 diabetes mellitus: Qualifiers: Diabetes mellitus complication status: without complication Diabetes mellitus dedicated intermodal truck driver insulin use: without senior care use Qualified Code(s): E11.9 - Type 2 diabetes mellitus without complications Code(s): E11.9 - Type 2 diabetes mellitus without complications Status: Chronic Assessment and Plan: - diet controlled, initial glucose 91 - has had poor p.o. intake over the last few days, hypoglycemia protocol in place (4) Hypertension: Qualifiers: Hypertension type: unspecified Qualified Code(s): I10 - Essential (primary) hypertension Code(s): I10 - Essential (primary) hypertension Status: Chronic Assessment and Plan: - chronic, currently 141/80 - continue home medications - monitor (5) Obstructive sleep apnea treated with BiPAP: Code(s): G47.33 - Obstructive sleep apnea (adult) (pediatric) Status: Acute Assessment and Plan: - continue home BiPAP Plan Diet: Heart healthy GI Prophylaxis: Not currently indicated DVT Prophylaxis: SCD Lines: Peripheral Code Status: Full code Quality VTE Prophylaxis VTE prophylaxis: mechanical ordered Hospitalist MIPS Advance Care Plan I have confirmed that the patient's Advanced Care Plan is present, code status is documented, or surrogate decision maker is listed in patient medical record.: Yes Medication Reconciliation I have utilized all available resources to obtain, update and review the patients current medications (includes all prescriptions, OTC, herbals, cannabis, and nutritional supplements).: Yes
--- NOTE | 2024-05-05 18:25 | ADMGEN ---
This patient, Yenny Hernandez, was admitted to Medical Room 254-01. Patient/family oriented to hospital policies and general routines including ID bracelet, bed and alarms, visiting hours, pain management, procedures, bathroom and other care routines, personal items, smoking policy, room service/diet, and visiting hours. Information on how to activate the Rapid Response Team has been discussed. Patient/Family are encouraged to report perceived risks to care and to ask questions if they do not understand what they are told or what they should do.
[2024-05-05 19:35] LABS: Creatine Kinase 25 U/L (30-135)
[2024-05-05 21:25] LABS: Urea Random Urine 456 MG/DL
[2024-05-05 21:26] LABS: Total Protein Urine Random 23 mg/dL
[2024-05-05 21:30] LABS: Sodium Urine Random 48 meq/L
[2024-05-05] MEDS: SODIUM CHLORIDE 0.9% IV 1,000 ML 150 ML IV CONT (23:00)
[2024-05-05] MEDS: carvediloL 3.125 MG TABLET PO (23:10)
[2024-05-05] MEDS: ATORVASTATIN 40 MG TABLET PO (23:10)
[2024-05-05] MEDS: BENZTROPINE MESYLATE 0.5 MG TABLET PO (23:10)
[2024-05-05] MEDS: traZODone HCL 50 MG TABLET PO (23:10)
[2024-05-05] MEDS: guaiFENesin 12 HR 600 MG TABCR PO (23:10)
[2024-05-05] MEDS: GABAPENTIN 400 MG CAPSULE PO (23:10)
[2024-05-05] MEDS: hydrALAZINE HCL 50 MG TABLET PO (23:10)
[2024-05-06] VITALS (11 sets, daily range): BP systolic 111–137; BP diastolic 48–68; PULSE 70–79; RESP 18–20; TEMP 36.2–37.1; O2SAT 93–100
[2024-05-06] MEDS: DIVALPROEX SODIUM ER 500 MG TAB.24H PO ×3 (00:03→20:01)
[2024-05-06] MEDS: DIVALPROEX SODIUM ER 250 MG TAB.24H PO ×2 (00:03→20:01)
[2024-05-06 05:16] LABS: Basophils Absolute Auto 0.1 K/mm3 (0.0-0.1); Basophils Percent Auto 0.8 % (0.2-1.2); Eosinophils Absolute Auto 0.9 K/mm3 (0-0.3); Eosinophils Percent Auto 10.1 % (0-4.4); Hematocrit 42.7 % (37.0-47.0); Hemoglobin 12.9 g/dL (12.0-15.0); Immature Granulocyte Absolute 0.03 K/mm3 (0.00-0.031); Immature Granulocyte Percent A 0.3 % (0-0.5); Lymphocytes Absolute Auto 1.15 K/mm3 (0.9-3.2); Lymphocytes Percent Auto 13.1 % (18.3-44.2); Mean Corpuscular HGB Conc 30.2 g/dl (32-36); Mean Corpuscular Hemoglobin 32.5 pg (26-34); Mean Corpuscular Volume 107.6 fl (80-100); Mean Platelet Volume 11.5 fl (7.4-10.4); Monocytes Absolute Auto 0.9 K/mm3 (0.1-0.6); Monocytes Percent Auto 9.8 % (2.6-8.5); Neutrophils Absolute Auto 5.8 K/mm3 (1.3-6.7); Neutrophils Percent Auto 65.9 % (45.5-73.1); Nucleated Red Blood Cells Perc 0.2 % (0.0-0.2); Platelet Count Result 182 k/mm3 (150-375); Red Blood Count 3.97 M/mm3 (4.2-5.4); Red Cell Distribution Width 13.6 % (11.5-14.5); White Blood Count 8.8 K/mm3 (4.5-10.0)
[2024-05-06 05:29] LABS: Anion Gap 8 mmol/L (4-12); Blood Urea Nitrogen 37 mg/dL (7-17); Calcium 7.7 mg/dL (8.4-10.2); Carbon Dioxide 24 mmol/L (22-30); Chloride 103 mmol/L (98-107); Estimated CRCL calculation 39 ml/min; Estimated Glomerular Filt Rate 43; Glucose 80 mg/dL (65-110); Potassium 4.3 mmol/L (3.4-5.0); Sodium 135 mmol/L (137-145)
[2024-05-06] MEDS: hydrALAZINE HCL 50 MG TABLET PO ×3 (05:46→21:21)
[2024-05-06] MEDS: SODIUM CHLORIDE 0.9% IV 1,000 ML 150 ML IV CONT ×2 (05:46→12:29)
[2024-05-06] MEDS: FERROUS SULFATE 325 MG TABLET DR PO (08:42)
[2024-05-06] MEDS: VITAMIN B COMPLEX CAPSULE 1 CAP PO (08:42)
[2024-05-06] MEDS: ASPIRIN 81 MG CHEWABLE TABLET PO (08:42)
[2024-05-06] MEDS: MAGNESIUM OXIDE 400 MG TABLET PO (08:43)
[2024-05-06] MEDS: GABAPENTIN 400 MG CAPSULE PO ×3 (08:43→18:41)
[2024-05-06] MEDS: FAMOTIDINE 20 MG TABLET PO (08:43)
[2024-05-06] MEDS: FUROSEMIDE 40 MG TABLET PO (08:43)
[2024-05-06] MEDS: BENZTROPINE MESYLATE 0.5 MG TABLET PO ×2 (08:43→20:01)
[2024-05-06] MEDS: amLODIPine BESYLATE 10 MG TABLET PO (08:43)
[2024-05-06] MEDS: SPIRONOLACTONE 25 MG TABLET PO (08:43)
[2024-05-06] MEDS: SERTRALINE HCL 25 MG TABLET PO (08:43)
[2024-05-06] MEDS: carvediloL 3.125 MG TABLET PO ×2 (08:44→20:01)
[2024-05-06] MEDS: ARIPiprazole 10 MG TABLET 30 MG PO (08:44)
[2024-05-06] MEDS: SERTRALINE HCL 50 MG TABLET 100 MG PO (08:44)
[2024-05-06] MEDS: oxyBUTYnin CHLORIDE XL 5 MG TAB.ER.24 10 MG PO (08:44)
[2024-05-06] MEDS: guaiFENesin 12 HR 600 MG TABCR PO ×2 (08:44→20:01)
[2024-05-06] MEDS: POTASSIUM CHLORIDE 20 MEQ PACKET (FOR LIQUID) PO (08:45)
[2024-05-06] MEDS: IPRATROPIUM 0.5 MG/ALBUTEROL SULFATE 2.5 MG AMPUL.NEB 3 ML INHALATION (09:22)
[2024-05-06] MEDS: FLUTICASONE PROP 110 MCG INHALER 12 GM (*SP) 1 PUFF INHALATION (09:40)
--- NOTE | 2024-05-06 09:51 | PM.IMPN ---
Progress Note: A&P Assessment and Plan (1) VARSHA (acute kidney injury): Code(s): N17.9 - Acute kidney failure, unspecified Status: Acute (2) Urinary tract infection: Qualifiers: Hematuria presence: without hematuria Urinary tract infection type: acute cystitis Qualified Code(s): N30.00 - Acute cystitis without hematuria Code(s): N39.0 - Urinary tract infection, site not specified Status: Acute (3) Type 2 diabetes mellitus: Qualifiers: Diabetes mellitus halfway insulin use: without halfway use Diabetes mellitus complication status: without complication Qualified Code(s): E11.9 - Type 2 diabetes mellitus without complications Code(s): E11.9 - Type 2 diabetes mellitus without complications Status: Chronic (4) Hypertension: Qualifiers: Hypertension type: unspecified Qualified Code(s): I10 - Essential (primary) hypertension Code(s): I10 - Essential (primary) hypertension Status: Chronic (5) Obstructive sleep apnea treated with BiPAP: Code(s): G47.33 - Obstructive sleep apnea (adult) (pediatric) Status: Acute Plan This is a 73-year-old female who presents from a halfway with increased weakness over the past 2 days. Decreased p.o. intake. On ED evaluation her vitals were stable. Laboratory workup revealed normal WBC at 9.9 hemoglobin of 13.4 creatinine elevated at 1.7 which is not her baseline suggesting VARSHA. Lactic acid was normal at 1.3 troponin negative TSH was normal at 0.847. Urinalysis showed more than 100 WBC with WBC clumps more than 20 casts along with hyaline casts. Influenza RSV COVID swab was negative. ABG 7.36/55/80/30. Chest x-ray was clear. Head CT with no acute intracranial abnormality. Right knee x-ray showed severe osteoarthritic changes with no acute osseous abnormality. EKG with normal sinus rhythm with nonspecific ST-T changes. Generalized weakness likely due to UTI. VARSHA creatinine 1.7 on admission. Baseline creatinine 0.5 in 2023. Normal saline for hydration. Creatinine down today. Will stop IV fluid. Renal ultrasound with no hydronephrosis or renal calculi. UTI pansensitive E coli on 04/21/2024. Start ceftriaxone Right knee osteoarthritis History of seizures Pulmonary hypertension Chronic diastolic Congestive heart failure NIGEL on BiPAP Chronic respiratory failure Asthma/COPD overlap Obesity hypoventilation syndrome GERD Diet-controlled diabetes History of CVA History of schizophrenia DVT prophylaxis SCDs Code status full code Subjective Date/time seen: 05/06/24 09:51 Interval history: No overnight events. Patient confused. Trying to eat breakfast this morning. States she is from [facility] Review of Systems Review of Systems: All systems reviewed & are unremarkable except as noted in HPI and below Exam Narrative: GENERAL APPEARANCE: WELL-DEVELOPED, WELL-NOURISHED not in acute distress SKIN: NORMAL COLOR HEAD: NORMOCEPHALIC, NONTRAUMATIC EYES: CLEAR CONJUNCTIVA ENT: OROPHARYNX NORMAL, EARS NORMAL, NOSE NORMAL CHRONIC NASAL CANNULA, 2 LITER/MINUTE NECK: SUPPLE, NONTENDER CHEST AND RESPIRATORY: AIRWAY PATENT, NO RESPIRATORY DISTRESS, NO ACCESSORY MUSCLE USE HEART: REGULAR RATE/RHYTHM ABDOMEN: SOFT, NONTENDER, NO ORGANOMEGALY, QUIET BOWEL SOUNDS VASCULAR: NORMAL PERIPHERAL PULSES, NORMAL CAPILLARY REFILL. MUSCULOSKELETAL: No tenderness NEUROLOGIC: ALERT AND ORIENTED ? 1-2 Objective Data Vital Signs Vital Signs: Vital Signs - 24 hr 05/05/24 13:20 05/05/24 13:30 05/05/24 14:01 Temperature 97.5 F L Pulse Rate 71 71 72 Respiratory Rate 16 16 Blood Pressure 136/109 H 122/66 Pulse Oximetry 99 100 Oxygen Delivery Room Air Oxygen Flow Rate 05/05/24 14:46 05/05/24 16:48 05/05/24 17:30 Temperature Pulse Rate 69 74 74 Respiratory Rate 15 17 17 Blood Pressure 135/72 141/80 H Pulse Oximetry 100 100 100 Oxygen Delivery Oxygen Flow Rate 05/05/24 18:12 05/05/24 20:29 05/05/24 21:00 Temperature 97.6 F Pulse Rate 78 77 Respiratory Rate 18 20 Blood Pressure 141/99 H 135/59 L Pulse Oximetry 100 100 100 Oxygen Delivery Nasal Cannula Oxygen Flow Rate 2 05/05/24 22:34 05/05/24 23:10 05/06/24 05:00 Temperature 97.1 F L Pulse Rate 74 71 70 Respiratory Rate 12 18 Blood Pressure 128/53 L Pulse Oximetry 97 100 Oxygen Delivery Autopap Oxygen Flow Rate 05/06/24 07:33 05/06/24 08:44 05/06/24 09:26 Temperature 97.4 F L Pulse Rate 71 71 74 Respiratory Rate 20 20 Blood Pressure 111/48 L Pulse Oximetry 100 98 Oxygen Delivery Nasal Cannula Oxygen Flow Rate 2 05/06/24 09:27 Temperature Pulse Rate 74 Respiratory Rate 20 Blood Pressure Pulse Oximetry Oxygen Delivery Oxygen Flow Rate Intake/Output Intake/Output: Intake & Output 05/03/24 05/04/24 05/05/24 05/06/24 23:59 23:59 23:59 23:59 Intake Total 1050 1390 Output Total 150 200 Balance 900 1190 Meds/Results Medications: Active Medications Generic Name Dose Route Start Last Admin Trade Name Freq PRN Reason Stop Dose Admin Acetaminophen 650 mg 05/05/24 16:18 Acetaminophen 325 Mg Tablet PO Q4H PRN Mild Pain (1-3) or Fever Albuterol 2 puff 05/06/24 09:00 Albuterol Sulfate (*Sp) Aerosol 1 Puff INHALATION QID TEOFILO Albuterol/Ipratropium 3 ml 05/06/24 08:00 05/06/24 09:22 Ipratropium 0.5 Mg/Albuterol Sulfate 2.5 Mg Ampul.Neb 3 Ml INHALATION 3 ml QIDRT TEOFILO Administration Amlodipine Besylate 10 mg 05/06/24 09:00 05/06/24 08:43 Amlodipine Besylate 10 Mg Tablet PO 10 mg DAILY TEOFILO Administration Aripiprazole 30 mg 05/06/24 09:00 05/06/24 08:44 Aripiprazole 10 Mg Tablet PO 30 mg DAILY TEOFILO Administration Aspirin 81 mg 05/06/24 09:00 05/06/24 08:42 Aspirin 81 Mg Chewable Tablet PO 81 mg DAILY TEOFILO Administration Atorvastatin Calcium 40 mg 05/05/24 23:00 05/05/24 23:10 Atorvastatin 40 Mg Tablet PO 40 mg HS TEOFILO Administration Benztropine Mesylate 0.5 mg 05/05/24 22:50 05/06/24 08:43 Benztropine Mesylate 0.5 Mg Tablet PO 0.5 mg Q12HR TEOFILO Administration Carbamazepine 200 mg 05/05/24 22:50 05/06/24 00:00 Carbamazepine 200 Mg Tablet PO 200 mg Q12HR TEOFILO Administration Carvedilol 3.125 mg 05/05/24 22:50 05/06/24 08:44 Carvedilol 3.125 Mg Tablet PO 3.125 mg Q12HR TEOFILO Administration Dextrose 12.5 gm 05/05/24 18:11 Dextrose 50% 25 Gm/50 Ml Syringe IV PUSH PRN PRN Hypoglycemia Protocol Divalproex Sodium 250 mg 05/05/24 23:10 05/06/24 00:03 Divalproex Sodium Er 250 Mg Tab.24h PO 250 mg HS TEOFILO Administration Divalproex Sodium 500 mg 05/05/24 22:50 05/06/24 08:42 Divalproex Sodium Er 500 Mg Tab.24h PO 500 mg Q12HR TEOFILO Administration Docusate Sodium 100 mg 05/06/24 09:00 05/06/24 08:45 Docusate Sodium 100 Mg Capsule PO Not Given DAILY TEOFILO Ergocalciferol 50,000 units 05/16/24 09:00 Ergocalciferol 50,000 Units Capsule PO Q30D TEOFILO Famotidine 20 mg 05/06/24 09:00 05/06/24 08:43 Famotidine 20 Mg Tablet PO 20 mg DAILY TEOFILO Administration Ferrous Sulfate 325 mg 05/06/24 09:00 05/06/24 08:42 Ferrous Sulfate [address] PO 325 mg DAILY TEOFILO Administration Fluticasone Propionate 1 puff 05/06/24 09:00 05/06/24 09:40 Fluticasone Prop 110 Mcg Inhaler 12 Gm (*Sp) INHALATION 1 puff BID TEOFILO Administration Furosemide 40 mg 05/06/24 09:00 05/06/24 08:43 Furosemide 40 Mg Tablet PO 40 mg BID TEOFILO Administration Gabapentin 400 mg 05/05/24 23:05 05/06/24 08:43 Gabapentin 400 Mg Capsule PO 400 mg TID TEOFILO Administration Glucagon 1 mg 05/05/24 18:11 Glucagon For Inj 1 Mg Vial IM PRN PRN Hypoglycemia Protocol Glucose 15 gm 05/05/24 18:11 Glucose Oral Gel 15 Gm Of Glucse In 37.5 Gm Tube PO PRN PRN Hypoglycemia Protocol Guaifenesin 600 mg 05/05/24 23:05 05/06/24 08:44 Guaifenesin 12 Hr 600 Mg Tabcr PO 600 mg Q12HR TEOFILO Administration Haloperidol 5 mg 05/06/24 09:00 Haloperidol 5 Mg Tablet PO TID TEOFILO Hydralazine HCl 50 mg 05/05/24 23:05 05/06/24 05:46 Hydralazine Hcl 50 Mg Tablet PO 50 mg Q8HR TEOFILO Administration Ceftriaxone Sodium 1 gm in 50 mls @ 100 mls/hr 05/05/24 15:20 05/05/24 18:06 Rocephin 1 Gm/Ns 50 Ml IVPB Infused DAILY@1200 TEOFILO Infusion Sodium Chloride 1,000 mls @ 150 mls/hr 05/05/24 16:25 05/06/24 05:46 Normal Saline Iv IV CONT 150 mls/hr .Q6H40M TEOFILO Administration Dextrose 1,000 mls @ 100 mls/hr 05/05/24 18:11 Dextrose 5% 1,000 Ml IVPB PRN PRN Hypoglycemia Protocol Magnesium Oxide 400 mg 05/06/24 09:00 05/06/24 08:43 Magnesium Oxide 400 Mg Tablet PO 400 mg QAM TEOFILO Administration Miscellaneous Information 1 each 05/06/24 00:01 Scheduled Albuterol Inhaler Is Duplicate Therapy With Scheduled Duoneb XX 06/05/24 00:00 CLARIFY TEOFILO Miscellaneous Information 1 each 05/06/24 00:01 Clarify Scheduled Olanzapine And Scheduled Haloperidol Should Pt Be Taking Both. Haloperid XX 06/05/24 00:00 CLARIFY TEOFILO Olanzapine 2.5 mg 05/06/24 09:00 Olanzapine 2.5 Mg Tablet PO BID TEOFILO Oxybutynin Chloride 10 mg 05/06/24 09:00 05/06/24 08:44 Oxybutynin Chloride Xl 5 Mg Tab.Er.24 PO 10 mg DAILY TEOFILO Administration Polyethylene Glycol 17 gm 05/06/24 09:00 05/06/24 08:45 Polyethylene Glycol 3350 17 Gm Powd.Pack PO Not Given DAILY TEOFILO Potassium Chloride 20 meq 05/06/24 09:00 05/06/24 08:45 Potassium Chloride 20 Meq Packet (For Liquid) PO 20 meq DAILY TEOFILO Administration Sertraline HCl 25 mg 05/06/24 09:00 05/06/24 08:43 Sertraline Hcl 25 Mg Tablet PO 25 mg Q24H TEOFILO Administration Sertraline HCl 100 mg 05/06/24 09:00 05/06/24 08:44 Sertraline Hcl 50 Mg Tablet PO 100 mg QAM TEOFILO Administration Spironolactone 25 mg 05/06/24 09:00 05/06/24 08:43 Spironolactone 25 Mg Tablet PO 25 mg DAILY TEOFILO Administration Trazodone HCl 50 mg 05/05/24 23:05 05/05/24 23:10 Trazodone Hcl 50 Mg Tablet PO 50 mg HS TEOFILO Administration Vitamin B Complex 1 cap 05/06/24 09:00 05/06/24 08:42 Vitamin B Complex Capsule PO 1 cap DAILY TEOFILO Administration Radiology Results: ITS Impressions Chest X-Ray 05/05/24 14:13 Impression: Clear lungs. Head CT 05/05/24 14:35 IMPRESSION: No acute intracranial findings. Knee X-Ray 05/05/24 14:41 IMPRESSION: No acute osseous abnormality right knee. Severe osteoarthritic changes. Renal Ultrasound 05/05/24 21:27 IMPRESSION: No hydronephrosis or renal calculi. Labs Labs: Laboratory Results - last 24 hr 05/05/24 05/05/24 05/05/24 13:40 13:47 13:55 WBC 9.9 RBC 4.20 Hgb 13.4 Hct 42.4 MCV 101.0 H MCH 31.9 MCHC 31.6 L RDW 13.6 Plt Count 51 L D MPV 12.8 H Immature Gran % (Auto) 0.4 Neut % (Auto) 76.0 H Lymph % (Auto) 9.1 L [place] % (Auto) 5.7 Eos % (Auto) 8.5 H Baso % (Auto) 0.3 Lymph # (Auto) 0.90 [place] # (Auto) 0.6 Eos # (Auto) 0.8 H Baso # (Auto) 0.0 Abs Immat Gran (auto) 0.04 H Absolute Neuts (auto) 7.5 H Absolute Nucleated RBC 0.000 Band Neutrophils % Not Reportable Nucleated RBC % 0.0 Platelet Estimate Decreased % Immature Plt Fraction 20.7 H Schistocytes None seen PT 14.4 INR 1.1 APTT 27.1 Puncture Site ABG pH ABG pCO2 ABG pO2 ABG PO2/FiO2 Ratio ABG HCO3 ABG O2 Saturation ABG O2 Content ABG Base Excess A-a Gradient Oxyhemoglobin Total Hemoglobin O2 Delivery Device O2 Liters/Min FiO2 Sodium 137 Potassium 4.7 Chloride 97 L Carbon Dioxide 35 H Anion Gap 5 BUN 41 H Creatinine 1.75 H Estim Creat Clear Calc 32 Estimated GFR 29 L Glucose 91 POC Capillary Glucose 85 Lactic Acid 1.3 Calcium 8.5 Total Bilirubin 0.5 AST 22 ALT 12 Alkaline Phosphatase 92 Total Creatine Kinase 22 L Troponin I < 0.012 C-Reactive Protein 4.2 H Total Protein 7.0 Albumin 3.4 L TSH 0.847 Urine Color Yellow Urine Appearance Turbid H Urine pH 5.5 Ur Specific [place] 1.020 Urine Protein Trace Urine Glucose (UA) Negative Urine Ketones Trace H Ur Blood (Man) Negative Urine Nitrate Negative Urine Bilirubin Negative Urine Urobilinogen 0.2 Add Ur Microanalysis Reviewed Leukocyte Esterase Rfl 3+ H Urine RBC 0-2 Urine WBC >100 H Urine WBC Clumps Present H Ur Squamous Epith Cells Few Urine Bacteria None seen Urine Casts >20 Hyaline Casts Present U Random Total Protein Ur Random Sodium Ur Random Urea Urine Creatinine Protein/Creat Ratio 2 Influenza A (RT-PCR) Negative Influenza B (RT-PCR) Negative RSV (RT-PCR) Negative SARS-CoV-2 RNA (RT-PCR) Negative 05/05/24 05/05/24 05/05/24 13:57 19:22 20:47 WBC RBC Hgb Hct MCV MCH MCHC RDW Plt Count MPV Immature Gran % (Auto) Neut % (Auto) Lymph % (Auto) [place] % (Auto) Eos % (Auto) Baso % (Auto) Lymph # (Auto) [place] # (Auto) Eos # (Auto) Baso # (Auto) Abs Immat Gran (auto) Absolute Neuts (auto) Absolute Nucleated RBC Band Neutrophils % Nucleated RBC % Platelet Estimate % Immature Plt Fraction Schistocytes PT INR APTT Puncture Site Right brachial ABG pH 7.363 ABG pCO2 55.5 H ABG pO2 80.3 ABG PO2/FiO2 Ratio 2.87 ABG HCO3 30.9 H ABG O2 Saturation 95.3 ABG O2 Content 18.2 ABG Base Excess 4.1 A-a Gradient 53.9 Oxyhemoglobin 94.0 Total Hemoglobin 13.7 O2 Delivery Device Nasal cannula O2 Liters/Min 2.0 FiO2 28 Sodium Potassium Chloride Carbon Dioxide Anion Gap BUN Creatinine Estim Creat Clear Calc Estimated GFR Glucose POC Capillary Glucose Lactic Acid Calcium Total Bilirubin AST ALT Alkaline Phosphatase Total Creatine Kinase 25 L Troponin I C-Reactive Protein Total Protein Albumin TSH Urine Color Urine Appearance Urine pH Ur Specific [place] Urine Protein Urine Glucose (UA) Urine Ketones Ur Blood (Man) Urine Nitrate Urine Bilirubin Urine Urobilinogen Add Ur Microanalysis Leukocyte Esterase Rfl Urine RBC Urine WBC Urine WBC Clumps Ur Squamous Epith Cells Urine Bacteria Urine Casts Hyaline Casts U Random Total Protein 23 Ur Random Sodium 48 Ur Random Urea 456 Urine Creatinine 76.0 Protein/Creat Ratio 2 0.30 H Influenza A (RT-PCR) Influenza B (RT-PCR) RSV (RT-PCR) SARS-CoV-2 RNA (RT-PCR) 05/06/24 04:55 WBC 8.8 RBC 3.97 L Hgb 12.9 Hct 42.7 MCV 107.6 H D MCH 32.5 MCHC 30.2 L RDW 13.6 Plt Count 182 D MPV 11.5 H Immature Gran % (Auto) 0.3 Neut % (Auto) 65.9 Lymph % (Auto) 13.1 L [place] % (Auto) 9.8 H Eos % (Auto) 10.1 H Baso % (Auto) 0.8 Lymph # (Auto) 1.15 [place] # (Auto) 0.9 H Eos # (Auto) 0.9 H Baso # (Auto) 0.1 Abs Immat Gran (auto) 0.03 Absolute Neuts (auto) 5.8 Absolute Nucleated RBC 0.020 H Band Neutrophils % Nucleated RBC % 0.2 Platelet Estimate % Immature Plt Fraction Schistocytes PT INR APTT Puncture Site ABG pH ABG pCO2 ABG pO2 ABG PO2/FiO2 Ratio ABG HCO3 ABG O2 Saturation ABG O2 Content ABG Base Excess A-a Gradient Oxyhemoglobin Total Hemoglobin O2 Delivery Device O2 Liters/Min FiO2 Sodium 135 L Potassium 4.3 Chloride 103 Carbon Dioxide 24 Anion Gap 8 BUN 37 H Creatinine 1.24 H Estim Creat Clear Calc 39 Estimated GFR 43 L Glucose 80 POC Capillary Glucose Lactic Acid Calcium 7.7 L Total Bilirubin AST ALT Alkaline Phosphatase Total Creatine Kinase Troponin I C-Reactive Protein Total Protein Albumin TSH Urine Color Urine Appearance Urine pH Ur Specific [place] Urine Protein Urine Glucose (UA) Urine Ketones Ur Blood (Man) Urine Nitrate Urine Bilirubin Urine Urobilinogen Add Ur Microanalysis Leukocyte Esterase Rfl Urine RBC Urine WBC Urine WBC Clumps Ur Squamous Epith Cells Urine Bacteria Urine Casts Hyaline Casts U Random Total Protein Ur Random Sodium Ur Random Urea Urine Creatinine Protein/Creat Ratio 2 Influenza A (RT-PCR) Influenza B (RT-PCR) RSV (RT-PCR) SARS-CoV-2 RNA (RT-PCR)
[2024-05-06] MEDS: carBAMazepine 200 MG TABLET PO ×3 (10:01→20:00)
--- NOTE | 2024-05-06 15:12 | PC.NURSE ---
On 05/06/24, the student, Charly Hitchcock, provided care and completed [facility] documentation on this patient. I have reviewed the student's documentation and agree with the findings.
[2024-05-06] MEDS: traZODone HCL 50 MG TABLET PO (20:01)
[2024-05-06] MEDS: ATORVASTATIN 40 MG TABLET PO (20:01)
[2024-05-07] VITALS (8 sets, daily range): BP systolic 120–145; BP diastolic 49–69; PULSE 74–78; RESP 17–20; TEMP 36.7–38.2; O2SAT 93–97
[2024-05-07 05:44] LABS: Basophils Percent Auto 0.4 % (0.2-1.2); Eosinophils Absolute Auto 1.4 K/mm3 (0-0.3); Eosinophils Percent Auto 17.5 % (0-4.4); Hematocrit 37.3 % (37.0-47.0); Hemoglobin 11.9 g/dL (12.0-15.0); Immature Granulocyte Absolute 0.03 K/mm3 (0.00-0.031); Immature Granulocyte Percent A 0.4 % (0-0.5); Lymphocytes Absolute Auto 1.18 K/mm3 (0.9-3.2); Lymphocytes Percent Auto 14.9 % (18.3-44.2); Mean Corpuscular HGB Conc 31.9 g/dl (32-36); Mean Corpuscular Hemoglobin 32.4 pg (26-34); Mean Corpuscular Volume 101.6 fl (80-100); Mean Platelet Volume 10.7 fl (7.4-10.4); Monocytes Absolute Auto 0.8 K/mm3 (0.1-0.6); Monocytes Percent Auto 10.6 % (2.6-8.5); Neutrophils Absolute Auto 4.5 K/mm3 (1.3-6.7); Neutrophils Percent Auto 56.2 % (45.5-73.1); Platelet Count Result 170 k/mm3 (150-375); Red Blood Count 3.67 M/mm3 (4.2-5.4); Red Cell Distribution Width 13.4 % (11.5-14.5); White Blood Count 7.9 K/mm3 (4.5-10.0)
[2024-05-07] MEDS: hydrALAZINE HCL 50 MG TABLET PO ×3 (05:45→20:11)
[2024-05-07 05:58] LABS: Alanine Aminotransferase 11 U/L (6-35); Albumin Level 2.7 g/dL (3.5-5.1); Alkaline Phosphatase 108 U/L (38-126); Anion Gap 1 mmol/L (4-12); Aspartate Amino Transferase 16 U/L (14-36); Bilirubin,Total 0.2 mg/dL (0.2-1.3); Blood Urea Nitrogen 23 mg/dL (7-17); Calcium 7.9 mg/dL (8.4-10.2); Carbon Dioxide 33 mmol/L (22-30); Chloride 103 mmol/L (98-107); Estimated CRCL calculation 51 ml/min; Estimated Glomerular Filt Rate 59; Glucose 87 mg/dL (65-110); Magnesium 2.1 mg/dL (1.6-2.3); Potassium 4.2 mmol/L (3.4-5.0); Sodium 137 mmol/L (137-145)
[2024-05-07] MEDS: FLUTICASONE PROP 110 MCG INHALER 12 GM (*SP) 1 PUFF INHALATION (08:29)
[2024-05-07] MEDS: SERTRALINE HCL 25 MG TABLET PO (10:41)
[2024-05-07] MEDS: GABAPENTIN 400 MG CAPSULE PO ×2 (10:41→14:26)
[2024-05-07] MEDS: SPIRONOLACTONE 25 MG TABLET PO (10:41)
[2024-05-07] MEDS: SERTRALINE HCL 50 MG TABLET 100 MG PO (10:41)
[2024-05-07] MEDS: MAGNESIUM OXIDE 400 MG TABLET PO (10:41)
[2024-05-07] MEDS: oxyBUTYnin CHLORIDE XL 5 MG TAB.ER.24 10 MG PO (10:41)
[2024-05-07] MEDS: guaiFENesin 12 HR 600 MG TABCR PO ×2 (10:41→20:10)
[2024-05-07] MEDS: carvediloL 3.125 MG TABLET PO ×2 (10:42→20:10)
[2024-05-07] MEDS: ASPIRIN 81 MG CHEWABLE TABLET PO (10:44)
[2024-05-07] MEDS: carBAMazepine 200 MG TABLET PO ×2 (10:44→20:10)
[2024-05-07] MEDS: BENZTROPINE MESYLATE 0.5 MG TABLET PO ×2 (10:44→20:10)
[2024-05-07] MEDS: DIVALPROEX SODIUM ER 500 MG TAB.24H PO ×2 (10:44→20:10)
[2024-05-07] MEDS: amLODIPine BESYLATE 10 MG TABLET PO (10:44)
[2024-05-07] MEDS: DOCUSATE SODIUM 100 MG CAPSULE PO (10:44)
[2024-05-07] MEDS: FAMOTIDINE 20 MG TABLET PO (10:44)
[2024-05-07] MEDS: ARIPiprazole 10 MG TABLET 30 MG PO (10:44)
[2024-05-07] MEDS: VITAMIN B COMPLEX CAPSULE 1 CAP PO (10:44)
[2024-05-07] MEDS: FERROUS SULFATE 325 MG TABLET DR PO (10:44)
[2024-05-07] MEDS: POTASSIUM CHLORIDE 20 MEQ PACKET (FOR LIQUID) PO (10:45)
[2024-05-07] MEDS: polyethylene glycoL 3350 17 GM POWD.PACK PO (10:45)
--- NOTE | 2024-05-07 12:45 | PM.IMPN ---
Progress Note: A&P Assessment and Plan (1) VARSHA (acute kidney injury): Code(s): N17.9 - Acute kidney failure, unspecified Status: Acute (2) Urinary tract infection: Qualifiers: Hematuria presence: without hematuria Urinary tract infection type: acute cystitis Qualified Code(s): N30.00 - Acute cystitis without hematuria Code(s): N39.0 - Urinary tract infection, site not specified Status: Acute (3) Type 2 diabetes mellitus: Qualifiers: Diabetes mellitus fdc insulin use: without fdc use Diabetes mellitus complication status: without complication Qualified Code(s): E11.9 - Type 2 diabetes mellitus without complications Code(s): E11.9 - Type 2 diabetes mellitus without complications Status: Chronic (4) Hypertension: Qualifiers: Hypertension type: unspecified Qualified Code(s): I10 - Essential (primary) hypertension Code(s): I10 - Essential (primary) hypertension Status: Chronic (5) Obstructive sleep apnea treated with BiPAP: Code(s): G47.33 - Obstructive sleep apnea (adult) (pediatric) Status: Acute Plan This is a 73-year-old female who presents from a halfway with increased weakness over the past 2 days. Decreased p.o. intake. On ED evaluation her vitals were stable. Laboratory workup revealed normal WBC at 9.9 hemoglobin of 13.4 creatinine elevated at 1.7 which is not her baseline suggesting VARSHA. Lactic acid was normal at 1.3 troponin negative TSH was normal at 0.847. Urinalysis showed more than 100 WBC with WBC clumps more than 20 casts along with hyaline casts. Influenza RSV COVID swab was negative. ABG 7.36/55/80/30. Chest x-ray was clear. Head CT with no acute intracranial abnormality. Right knee x-ray showed severe osteoarthritic changes with no acute osseous abnormality. EKG with normal sinus rhythm with nonspecific ST-T changes. Generalized weakness likely due to UTI. VARSHA creatinine 1.7 on admission. Baseline creatinine 0.5 in 2023. Normal saline for hydration. Creatinine down and back to baseline. With IV fluids. Renal ultrasound with no hydronephrosis or renal calculi. UTI pansensitive E coli on 04/21/2024. Start ceftriaxone. Urine culture no growth. Will switch to oral Right knee osteoarthritis History of seizures Pulmonary hypertension Chronic diastolic Congestive heart failure NIGEL on BiPAP Chronic respiratory failure Asthma/COPD overlap Obesity hypoventilation syndrome GERD Diet-controlled diabetes History of CVA History of schizophrenia DVT prophylaxis SCDs Code status full code Subjective Date/time seen: 05/07/24 12:45 Interval history: No overnight events. No new complaints. Patient from halfway. Pending PT OT evaluation Review of Systems Review of Systems: All systems reviewed & are unremarkable except as noted in HPI and below Exam Narrative: GENERAL APPEARANCE: WELL-DEVELOPED, WELL-NOURISHED not in acute distress SKIN: NORMAL COLOR HEAD: NORMOCEPHALIC, NONTRAUMATIC EYES: CLEAR CONJUNCTIVA ENT: OROPHARYNX NORMAL, EARS NORMAL, NOSE NORMAL CHRONIC NASAL CANNULA, 2 LITER/MINUTE NECK: SUPPLE, NONTENDER CHEST AND RESPIRATORY: AIRWAY PATENT, NO RESPIRATORY DISTRESS, NO ACCESSORY MUSCLE USE HEART: REGULAR RATE/RHYTHM ABDOMEN: SOFT, NONTENDER, NO ORGANOMEGALY, QUIET BOWEL SOUNDS VASCULAR: NORMAL PERIPHERAL PULSES, NORMAL CAPILLARY REFILL. MUSCULOSKELETAL: No tenderness NEUROLOGIC: ALERT AND ORIENTED ? 1-2 Objective Data Vital Signs Vital Signs: Vital Signs - 24 hr 05/06/24 13:52 05/06/24 15:20 05/06/24 20:00 Temperature 97.4 F L 98.8 F Pulse Rate 79 77 Respiratory Rate 19 20 Blood Pressure 133/57 L 137/68 Pulse Oximetry 93 100 100 Oxygen Delivery Nasal Cannula Oxygen Flow Rate 2 05/06/24 20:01 05/06/24 22:00 05/07/24 06:00 Temperature 98.4 F 98.0 F Pulse Rate 78 79 75 Respiratory Rate 18 18 Blood Pressure 136/53 L 120/49 L Pulse Oximetry 95 93 Oxygen Delivery Oxygen Flow Rate 05/07/24 08:29 05/07/24 08:29 05/07/24 10:42 Temperature Pulse Rate 78 75 Respiratory Rate 20 Blood Pressure Pulse Oximetry 95 Oxygen Delivery Nasal Cannula Oxygen Flow Rate 3 Intake/Output Intake/Output: Intake & Output 05/04/24 05/05/24 05/06/24 05/07/24 23:59 23:59 23:59 23:59 Intake Total 1050 3157 0 Output Total 150 1410 1000 Balance 900 1747 -1000 Meds/Results Medications: Active Medications Generic Name Dose Route Start Last Admin Trade Name Freq PRN Reason Stop Dose Admin Acetaminophen 650 mg 05/05/24 16:18 Acetaminophen 325 Mg Tablet PO Q4H PRN Mild Pain (1-3) or Fever Albuterol 2 puff 05/06/24 09:00 Albuterol Sulfate (*Sp) Aerosol 1 Puff INHALATION QID TEOFILO Albuterol/Ipratropium 3 ml 05/06/24 11:59 Ipratropium 0.5 Mg/Albuterol Sulfate 2.5 Mg Ampul.Neb 3 Ml INHALATION QIDRT PRN Wheezing Amlodipine Besylate 10 mg 05/06/24 09:00 05/07/24 10:44 Amlodipine Besylate 10 Mg Tablet PO 10 mg DAILY TEOFILO Administration Aripiprazole 30 mg 05/06/24 09:00 05/07/24 10:44 Aripiprazole 10 Mg Tablet PO 30 mg DAILY TEOFILO Administration Aspirin 81 mg 05/06/24 09:00 05/07/24 10:44 Aspirin 81 Mg Chewable Tablet PO 81 mg DAILY TEOFILO Administration Atorvastatin Calcium 40 mg 05/05/24 23:00 05/06/24 20:01 Atorvastatin 40 Mg Tablet PO 40 mg HS TEOFILO Administration Benztropine Mesylate 0.5 mg 05/05/24 22:50 05/07/24 10:44 Benztropine Mesylate 0.5 Mg Tablet PO 0.5 mg Q12HR TEOFILO Administration Carbamazepine 200 mg 05/05/24 22:50 05/07/24 10:44 Carbamazepine 200 Mg Tablet PO 200 mg Q12HR TEOFILO Administration Carvedilol 3.125 mg 05/05/24 22:50 05/07/24 10:42 Carvedilol 3.125 Mg Tablet PO 3.125 mg Q12HR TEOFILO Administration Dextrose 12.5 gm 05/05/24 18:11 Dextrose 50% 25 Gm/50 Ml Syringe IV PUSH PRN PRN Hypoglycemia Protocol Divalproex Sodium 250 mg 05/05/24 23:10 05/06/24 20:01 Divalproex Sodium Er 250 Mg Tab.24h PO 250 mg HS TEOFILO Administration Divalproex Sodium 500 mg 05/05/24 22:50 05/07/24 10:44 Divalproex Sodium Er 500 Mg Tab.24h PO 500 mg Q12HR TEOFILO Administration Docusate Sodium 100 mg 05/06/24 09:00 05/07/24 10:44 Docusate Sodium 100 Mg Capsule PO 100 mg DAILY TEOFILO Administration Ergocalciferol 50,000 units 05/16/24 09:00 Ergocalciferol 50,000 Units Capsule PO Q30D [facility] Famotidine 20 mg 05/06/24 09:00 05/07/24 10:44 Famotidine 20 Mg Tablet PO 20 mg DAILY TEOFILO Administration Ferrous Sulfate 325 mg 05/06/24 09:00 05/07/24 10:44 Ferrous Sulfate [address] PO 325 mg DAILY TEOFILO Administration Fluticasone Propionate 1 puff 05/06/24 09:00 05/07/24 08:29 Fluticasone Prop 110 Mcg Inhaler 12 Gm (*Sp) INHALATION 1 puff BID TEOFILO Administration Furosemide 40 mg 05/06/24 09:00 05/06/24 08:43 Furosemide 40 Mg Tablet PO 40 mg BID TEOFILO Administration Gabapentin 400 mg 05/05/24 23:05 05/07/24 10:41 Gabapentin 400 Mg Capsule PO 400 mg TID TEOFILO Administration Glucagon 1 mg 05/05/24 18:11 Glucagon For Inj 1 Mg Vial IM PRN PRN Hypoglycemia Protocol Glucose 15 gm 05/05/24 18:11 Glucose Oral Gel 15 Gm Of Glucse In 37.5 Gm Tube PO PRN PRN Hypoglycemia Protocol Guaifenesin 600 mg 05/05/24 23:05 05/07/24 10:41 Guaifenesin 12 Hr 600 Mg Tabcr PO 600 mg Q12HR TEOFILO Administration Haloperidol 5 mg 05/06/24 09:00 Haloperidol 5 Mg Tablet PO TID TEOFILO Hydralazine HCl 50 mg 05/05/24 23:05 05/07/24 05:45 Hydralazine Hcl 50 Mg Tablet PO 50 mg Q8HR TEOFILO Administration Ceftriaxone Sodium 1 gm in 50 mls @ 100 mls/hr 05/05/24 15:20 05/07/24 11:03 Rocephin 1 Gm/Ns 50 Ml IVPB 100 mls/hr DAILY@1200 TEOFILO Administration Dextrose 1,000 mls @ 100 mls/hr 05/05/24 18:11 Dextrose 5% 1,000 Ml IVPB PRN PRN Hypoglycemia Protocol Magnesium Oxide 400 mg 05/06/24 09:00 05/07/24 10:41 Magnesium Oxide 400 Mg Tablet PO 400 mg QAM TEOFILO Administration Miscellaneous Information 1 each 05/06/24 00:01 05/07/24 10:53 Scheduled Albuterol Inhaler Is Duplicate Therapy With Scheduled Duoneb XX 06/05/24 00:00 Not Given CLARIFY [facility] Miscellaneous Information 1 each 05/06/24 00:01 05/07/24 10:53 Clarify Scheduled Olanzapine And Scheduled Haloperidol Should Pt Be Taking Both. Haloperid XX 06/05/24 00:00 Not Given CLARIFY TEOFILO Olanzapine 2.5 mg 05/06/24 09:00 Olanzapine 2.5 Mg Tablet PO BID TEOFILO Oxybutynin Chloride 10 mg 05/06/24 09:00 05/07/24 10:41 Oxybutynin Chloride Xl 5 Mg Tab.Er.24 PO 10 mg DAILY TEOFILO Administration Polyethylene Glycol 17 gm 05/06/24 09:00 05/07/24 10:45 Polyethylene Glycol 3350 17 Gm Powd.Pack PO 17 gm DAILY TEOFILO Administration Potassium Chloride 20 meq 05/06/24 09:00 05/07/24 10:45 Potassium Chloride 20 Meq Packet (For Liquid) PO 20 meq DAILY TEOFILO Administration Sertraline HCl 25 mg 05/06/24 09:00 05/07/24 10:41 Sertraline Hcl 25 Mg Tablet PO 25 mg Q24H TEOFILO Administration Sertraline HCl 100 mg 05/06/24 09:00 05/07/24 10:41 Sertraline Hcl 50 Mg Tablet PO 100 mg QAM TEOFILO Administration Spironolactone 25 mg 05/06/24 09:00 05/07/24 10:41 Spironolactone 25 Mg Tablet PO 25 mg DAILY TEOFILO Administration Trazodone HCl 50 mg 05/05/24 23:05 05/06/24 20:01 Trazodone Hcl 50 Mg Tablet PO 50 mg HS TEOFILO Administration Vitamin B Complex 1 cap 05/06/24 09:00 05/07/24 10:44 Vitamin B Complex Capsule PO 1 cap DAILY TEOFILO Administration Radiology Results: ITS Impressions Chest X-Ray 05/05/24 14:13 Impression: Clear lungs. Head CT 05/05/24 14:35 IMPRESSION: No acute intracranial findings. Knee X-Ray 05/05/24 14:41 IMPRESSION: No acute osseous abnormality right knee. Severe osteoarthritic changes. Renal Ultrasound 05/05/24 21:27 IMPRESSION: No hydronephrosis or renal calculi. Labs Labs: Laboratory Results - last 24 hr 05/07/24 05:28 WBC 7.9 RBC 3.67 L Hgb 11.9 L Hct 37.3 MCV 101.6 H D MCH 32.4 MCHC 31.9 L RDW 13.4 Plt Count 170 MPV 10.7 H Immature Gran % (Auto) 0.4 Neut % (Auto) 56.2 Lymph % (Auto) 14.9 L [place] % (Auto) 10.6 H Eos % (Auto) 17.5 H Baso % (Auto) 0.4 Lymph # (Auto) 1.18 [place] # (Auto) 0.8 H Eos # (Auto) 1.4 H Baso # (Auto) 0.0 Abs Immat Gran (auto) 0.03 Absolute Neuts (auto) 4.5 Absolute Nucleated RBC 0.000 Nucleated RBC % 0.0 Sodium 137 Potassium 4.2 Chloride 103 Carbon Dioxide 33 H Anion Gap 1 L BUN 23 H D Creatinine 0.93 Estim Creat Clear Calc 51 Estimated GFR 59 Glucose 87 Calcium 7.9 L Magnesium 2.1 Total Bilirubin 0.2 AST 16 ALT 11 Alkaline Phosphatase 108 Total Protein 5.0 L Albumin 2.7 L
--- NOTE | 2024-05-07 14:43 | PCOTNOTE ---
Attempted OT evaluation. Patient declines and keeps eyes shut. Will follow.
[2024-05-07 18:06] LABS: Glucose Point of Care 97 mg/dl (65-105)
[2024-05-07] MEDS: ATORVASTATIN 40 MG TABLET PO (20:10)
[2024-05-07] MEDS: traZODone HCL 50 MG TABLET PO (20:10)
[2024-05-07] MEDS: DIVALPROEX SODIUM ER 250 MG TAB.24H PO (20:10)
[2024-05-08] MEDS: hydrALAZINE HCL 50 MG TABLET PO ×3 (05:40→20:47)
[2024-05-08 05:42] VITALS: BP 147/65; PULSE 81; RESP 18; TEMP 36.9; O2SAT 91
[2024-05-08 05:58] LABS: Basophils Absolute Auto 0.1 K/mm3 (0.0-0.1); Basophils Percent Auto 0.6 % (0.2-1.2); Eosinophils Absolute Auto 1.8 K/mm3 (0-0.3); Eosinophils Percent Auto 16.3 % (0-4.4); Hematocrit 39.2 % (37.0-47.0); Hemoglobin 12.8 g/dL (12.0-15.0); Immature Granulocyte Absolute 0.05 K/mm3 (0.00-0.031); Immature Granulocyte Percent A 0.5 % (0-0.5); Lymphocytes Absolute Auto 2.18 K/mm3 (0.9-3.2); Lymphocytes Percent Auto 19.7 % (18.3-44.2); Mean Corpuscular HGB Conc 32.7 g/dl (32-36); Mean Corpuscular Hemoglobin 32.7 pg (26-34); Mean Platelet Volume 10.6 fl (7.4-10.4); Monocytes Percent Auto 8.7 % (2.6-8.5); Neutrophils Percent Auto 54.2 % (45.5-73.1); Platelet Count Result 186 k/mm3 (150-375); Red Blood Count 3.92 M/mm3 (4.2-5.4); Red Cell Distribution Width 13.7 % (11.5-14.5); White Blood Count 11.1 K/mm3 (4.5-10.0)
[2024-05-08 06:12] LABS: Alanine Aminotransferase 12 U/L (6-35); Albumin Level 2.9 g/dL (3.5-5.1); Alkaline Phosphatase 130 U/L (38-126); Anion Gap 3 mmol/L (4-12); Aspartate Amino Transferase 18 U/L (14-36); Bilirubin,Total 0.4 mg/dL (0.2-1.3); Blood Urea Nitrogen 21 mg/dL (7-17); Calcium 8.3 mg/dL (8.4-10.2); Carbon Dioxide 32 mmol/L (22-30); Chloride 102 mmol/L (98-107); Estimated CRCL calculation 50 ml/min; Estimated Glomerular Filt Rate 57; Glucose 90 mg/dL (65-110); Magnesium 2.2 mg/dL (1.6-2.3); Potassium 4.5 mmol/L (3.4-5.0); Sodium 137 mmol/L (137-145)
[2024-05-08 08:25] VITALS: PULSE 77; RESP 16; O2SAT 91
[2024-05-08] MEDS: FLUTICASONE PROP 110 MCG INHALER 12 GM (*SP) 1 PUFF INHALATION (08:25)
[2024-05-08] MEDS: ASPIRIN 81 MG CHEWABLE TABLET PO (08:47)
[2024-05-08] MEDS: oxyBUTYnin CHLORIDE XL 5 MG TAB.ER.24 10 MG PO (08:47)
[2024-05-08] MEDS: SERTRALINE HCL 50 MG TABLET 100 MG PO (08:48)
[2024-05-08] MEDS: ARIPiprazole 10 MG TABLET 30 MG PO (08:48)
[2024-05-08] MEDS: SPIRONOLACTONE 25 MG TABLET PO (08:48)
[2024-05-08] MEDS: VITAMIN B COMPLEX CAPSULE 1 CAP PO (08:48)
[2024-05-08] MEDS: amLODIPine BESYLATE 10 MG TABLET PO (08:48)
[2024-05-08 08:49] VITALS: PULSE 78
[2024-05-08] MEDS: MAGNESIUM OXIDE 400 MG TABLET PO (08:49)
[2024-05-08] MEDS: GABAPENTIN 400 MG CAPSULE PO ×3 (08:49→17:57)
[2024-05-08] MEDS: SERTRALINE HCL 25 MG TABLET PO (08:49)
[2024-05-08] MEDS: DIVALPROEX SODIUM ER 500 MG TAB.24H PO ×2 (08:49→20:47)
[2024-05-08] MEDS: carvediloL 3.125 MG TABLET PO ×2 (08:49→20:47)
[2024-05-08] MEDS: POTASSIUM CHLORIDE 20 MEQ PACKET (FOR LIQUID) PO (08:49)
[2024-05-08] MEDS: polyethylene glycoL 3350 17 GM POWD.PACK PO (08:49)
[2024-05-08] MEDS: FERROUS SULFATE 325 MG TABLET DR PO (08:49)
[2024-05-08] MEDS: FAMOTIDINE 20 MG TABLET PO (08:49)
[2024-05-08] MEDS: BENZTROPINE MESYLATE 0.5 MG TABLET PO ×2 (08:49→20:47)
[2024-05-08] MEDS: DOCUSATE SODIUM 100 MG CAPSULE PO (08:49)
[2024-05-08] MEDS: guaiFENesin 12 HR 600 MG TABCR PO ×2 (08:49→20:47)
[2024-05-08] MEDS: CEFDINIR 300 MG CAPSULE PO ×2 (08:59→20:47)
[2024-05-08] MEDS: carBAMazepine 200 MG TABLET PO ×2 (08:59→20:47)
--- NOTE | 2024-05-08 12:57 | P.PNIM_ITS ---
Progress Note: A&P Assessment and Plan (1) VARSHA (acute kidney injury): Code(s): N17.9 - Acute kidney failure, unspecified Status: Acute (2) Urinary tract infection: Qualifiers: Hematuria presence: without hematuria Urinary tract infection type: acute cystitis Qualified Code(s): N30.00 - Acute cystitis without hematuria Code(s): N39.0 - Urinary tract infection, site not specified Status: Acute (3) Type 2 diabetes mellitus: Qualifiers: Diabetes mellitus mcc insulin use: without mcc use Diabetes mellitus complication status: without complication Qualified Code(s): E11.9 - Type 2 diabetes mellitus without complications Code(s): E11.9 - Type 2 diabetes mellitus without complications Status: Chronic (4) Hypertension: Qualifiers: Hypertension type: unspecified Qualified Code(s): I10 - Essential (primary) hypertension Code(s): I10 - Essential (primary) hypertension Status: Chronic (5) Obstructive sleep apnea treated with BiPAP: Code(s): G47.33 - Obstructive sleep apnea (adult) (pediatric) Status: Acute Plan This is a 73-year-old female who presents from a fdc with increased weakness over the past 2 days. Decreased p.o. intake. On ED evaluation her vitals were stable. Laboratory workup revealed normal WBC at 9.9 hemoglobin of 13.4 creatinine elevated at 1.7 which is not her baseline suggesting VARSHA. Lactic acid was normal at 1.3 troponin negative TSH was normal at 0.847. Urinalysis showed more than 100 WBC with WBC clumps more than 20 casts along with hyaline casts. Influenza RSV COVID swab was negative. ABG 7.36/55/80/30. Chest x-ray was clear. Head CT with no acute intracranial abnormality. Right knee x-ray showed severe osteoarthritic changes with no acute osseous abnormality. EKG with normal sinus rhythm with nonspecific ST-T changes. Generalized weakness likely due to UTI. VARSHA creatinine 1.7 on admission. Baseline creatinine 0.5 in 2023. Normal saline for hydration. Creatinine down and back to baseline. With IV fluids. Renal ultrasound with no hydronephrosis or renal calculi. UTI pansensitive E coli on 04/21/2024. Start ceftriaxone. Urine culture no growth. Will switch to oral cefdinir. Mild leukocytosis today will recheck tomorrow Right knee osteoarthritis History of seizures Pulmonary hypertension Chronic diastolic Congestive heart failure NIGEL on BiPAP Chronic respiratory failure Asthma/COPD overlap Obesity hypoventilation syndrome GERD Diet-controlled diabetes History of CVA History of schizophrenia DVT prophylaxis SCDs Code status full code Subjective Date/time seen: 05/08/24 12:57 Interval history: No overnight events. Denies any new complaints. Review of Systems Review of Systems: All systems reviewed & are unremarkable except as noted in HPI and below Exam Narrative: GENERAL APPEARANCE: WELL-DEVELOPED, WELL-NOURISHED not in acute distress SKIN: NORMAL COLOR HEAD: NORMOCEPHALIC, NONTRAUMATIC EYES: CLEAR CONJUNCTIVA ENT: OROPHARYNX NORMAL, EARS NORMAL, NOSE NORMAL CHRONIC NASAL CANNULA, 2 LITER/MINUTE NECK: SUPPLE, NONTENDER CHEST AND RESPIRATORY: AIRWAY PATENT, NO RESPIRATORY DISTRESS, NO ACCESSORY MUSCLE USE HEART: REGULAR RATE/RHYTHM ABDOMEN: SOFT, NONTENDER, NO ORGANOMEGALY, QUIET BOWEL SOUNDS VASCULAR: NORMAL PERIPHERAL PULSES, NORMAL CAPILLARY REFILL. MUSCULOSKELETAL: No tenderness NEUROLOGIC: ALERT AND ORIENTED ? 1-2 Objective Data Vital Signs Vital Signs: Vital Signs - 24 hr 05/07/24 14:00 05/07/24 16:40 05/07/24 20:00 Temperature 100.7 F H 98.1 F Pulse Rate 75 Respiratory Rate 20 Blood Pressure 128/56 L Pulse Oximetry 94 97 Oxygen Delivery Room Air Fraction of Inspired Oxygen 05/07/24 20:10 05/07/24 20:12 05/08/24 05:42 Temperature 98.2 F 98.4 F Pulse Rate 74 74 81 Respiratory Rate 17 18 Blood Pressure 145/69 H 147/65 H Pulse Oximetry 97 91 Oxygen Delivery Fraction of Inspired Oxygen 05/08/24 08:00 05/08/24 08:25 05/08/24 08:25 Temperature Pulse Rate 77 Respiratory Rate 16 Blood Pressure Pulse Oximetry 91 Oxygen Delivery Room Air Room Air Fraction of Inspired Oxygen 21 05/08/24 08:49 05/08/24 10:20 Temperature Pulse Rate 78 Respiratory Rate Blood Pressure Pulse Oximetry Oxygen Delivery Room Air Fraction of Inspired Oxygen Intake/Output Intake/Output: Intake & Output 05/05/24 05/06/24 05/07/24 05/08/24 23:59 23:59 23:59 23:59 Intake Total 1050 3157 350 200 Output Total 150 1410 1400 500 Balance 900 1747 -1050 -300 Meds/Results Medications: Active Medications Generic Name Dose Route Start Last Admin Trade Name Freq PRN Reason Stop Dose Admin Acetaminophen 650 mg 05/05/24 16:18 Acetaminophen 325 Mg Tablet PO Q4H PRN Mild Pain (1-3) or Fever Albuterol 2 puff 05/06/24 09:00 Albuterol Sulfate (*Sp) Aerosol 1 Puff INHALATION QID TEOFILO Albuterol/Ipratropium 3 ml 05/06/24 11:59 Ipratropium 0.5 Mg/Albuterol Sulfate 2.5 Mg Ampul.Neb 3 Ml INHALATION QIDRT PRN Wheezing Amlodipine Besylate 10 mg 05/06/24 09:00 05/08/24 08:48 Amlodipine Besylate 10 Mg Tablet PO 10 mg DAILY TEOFILO Administration Aripiprazole 30 mg 05/06/24 09:00 05/08/24 08:48 Aripiprazole 10 Mg Tablet PO 30 mg DAILY TEOFILO Administration Aspirin 81 mg 05/06/24 09:00 05/08/24 08:47 Aspirin 81 Mg Chewable Tablet PO 81 mg DAILY TEOFILO Administration Atorvastatin Calcium 40 mg 05/05/24 23:00 05/07/24 20:10 Atorvastatin 40 Mg Tablet PO 40 mg HS TEOFILO Administration Benztropine Mesylate 0.5 mg 05/05/24 22:50 05/08/24 08:49 Benztropine Mesylate 0.5 Mg Tablet PO 0.5 mg Q12HR TEOFILO Administration Carbamazepine 200 mg 05/05/24 22:50 05/08/24 08:59 Carbamazepine 200 Mg Tablet PO 200 mg Q12HR TEOFILO Administration Carvedilol 3.125 mg 05/05/24 22:50 05/08/24 08:49 Carvedilol 3.125 Mg Tablet PO 3.125 mg Q12HR TEOFILO Administration Cefdinir 300 mg 05/08/24 09:00 05/08/24 08:59 Cefdinir 300 Mg Capsule PO 300 mg Q12HR TEOFILO Administration Dextrose 12.5 gm 05/05/24 18:11 Dextrose 50% 25 Gm/50 Ml Syringe IV PUSH PRN PRN Hypoglycemia Protocol Divalproex Sodium 250 mg 05/05/24 23:10 05/07/24 20:10 Divalproex Sodium Er 250 Mg Tab.24h PO 250 mg HS TEOFILO Administration Divalproex Sodium 500 mg 05/05/24 22:50 05/08/24 08:49 Divalproex Sodium Er 500 Mg Tab.24h PO 500 mg Q12HR TEOFILO Administration Docusate Sodium 100 mg 05/06/24 09:00 05/08/24 08:49 Docusate Sodium 100 Mg Capsule PO 100 mg DAILY TEOFILO Administration Ergocalciferol 50,000 units 05/16/24 09:00 Ergocalciferol 50,000 Units Capsule PO Q30D [facility] Famotidine 20 mg 05/06/24 09:00 05/08/24 08:49 Famotidine 20 Mg Tablet PO 20 mg DAILY TEOFILO Administration Ferrous Sulfate 325 mg 05/06/24 09:00 05/08/24 08:49 Ferrous Sulfate [address] PO 325 mg DAILY TEOFILO Administration Fluticasone Propionate 1 puff 05/06/24 09:00 05/08/24 08:25 Fluticasone Prop 110 Mcg Inhaler 12 Gm (*Sp) INHALATION 1 puff BID TEOFILO Administration Furosemide 40 mg 05/06/24 09:00 05/06/24 08:43 Furosemide 40 Mg Tablet PO 40 mg BID TEOFILO Administration Gabapentin 400 mg 05/05/24 23:05 05/08/24 08:49 Gabapentin 400 Mg Capsule PO 400 mg TID TEOFILO Administration Glucagon 1 mg 05/05/24 18:11 Glucagon For Inj 1 Mg Vial IM PRN PRN Hypoglycemia Protocol Glucose 15 gm 05/05/24 18:11 Glucose Oral Gel 15 Gm Of Glucse In 37.5 Gm Tube PO PRN PRN Hypoglycemia Protocol Guaifenesin 600 mg 05/05/24 23:05 05/08/24 08:49 Guaifenesin 12 Hr 600 Mg Tabcr PO 600 mg Q12HR TEOFILO Administration Haloperidol 5 mg 05/08/24 13:00 Haloperidol 5 Mg Tablet PO TID TEOFILO Hydralazine HCl 50 mg 05/05/24 23:05 05/08/24 05:40 Hydralazine Hcl 50 Mg Tablet PO 50 mg Q8HR TEOFILO Administration Dextrose 1,000 mls @ 100 mls/hr 05/05/24 18:11 Dextrose 5% 1,000 Ml IVPB PRN PRN Hypoglycemia Protocol Magnesium Oxide 400 mg 05/06/24 09:00 05/08/24 08:49 Magnesium Oxide 400 Mg Tablet PO 400 mg QAM TEOFILO Administration Miscellaneous Information 1 each 05/06/24 00:01 05/07/24 10:53 Scheduled Albuterol Inhaler Is Duplicate Therapy With Scheduled Duoneb XX 06/05/24 00:00 Not Given CLARIFY [facility] Miscellaneous Information 1 each 05/06/24 00:01 05/07/24 10:53 Clarify Scheduled Olanzapine And Scheduled Haloperidol Should Pt Be Taking Both. Haloperid XX 06/05/24 00:00 Not Given CLARIFY TEOFILO Olanzapine 2.5 mg 05/08/24 21:00 Olanzapine 2.5 Mg Tablet PO Q12HR TEOFILO Oxybutynin Chloride 10 mg 05/06/24 09:00 05/08/24 08:47 Oxybutynin Chloride Xl 5 Mg Tab.Er.24 PO 10 mg DAILY TEOFILO Administration Polyethylene Glycol 17 gm 05/06/24 09:00 05/08/24 08:49 Polyethylene Glycol 3350 17 Gm Powd.Pack PO 17 gm DAILY TEOFILO Administration Potassium Chloride 20 meq 05/06/24 09:00 05/08/24 08:49 Potassium Chloride 20 Meq Packet (For Liquid) PO 20 meq DAILY TEOFILO Administration Sertraline HCl 25 mg 05/06/24 09:00 05/08/24 08:49 Sertraline Hcl 25 Mg Tablet PO 25 mg Q24H TEOFILO Administration Sertraline HCl 100 mg 05/06/24 09:00 05/08/24 08:48 Sertraline Hcl 50 Mg Tablet PO 100 mg QAM TEOFILO Administration Spironolactone 25 mg 05/06/24 09:00 05/08/24 08:48 Spironolactone 25 Mg Tablet PO 25 mg DAILY TEOFILO Administration Trazodone HCl 50 mg 05/05/24 23:05 05/07/24 20:10 Trazodone Hcl 50 Mg Tablet PO 50 mg HS TEOFILO Administration Vitamin B Complex 1 cap 05/06/24 09:00 05/08/24 08:48 Vitamin B Complex Capsule PO 1 cap DAILY TEOFILO Administration Radiology Results: ITS Impressions Chest X-Ray 05/05/24 14:13 Impression: Clear lungs. Head CT 05/05/24 14:35 IMPRESSION: No acute intracranial findings. Knee X-Ray 05/05/24 14:41 IMPRESSION: No acute osseous abnormality right knee. Severe osteoarthritic changes. Renal Ultrasound 05/05/24 21:27 IMPRESSION: No hydronephrosis or renal calculi. Labs Labs: Laboratory Results - last 24 hr 05/07/24 05/08/24 18:02 05:47 WBC 11.1 H RBC 3.92 L Hgb 12.8 Hct 39.2 MCV 100.0 MCH 32.7 MCHC 32.7 RDW 13.7 Plt Count 186 MPV 10.6 H Immature Gran % (Auto) 0.5 Neut % (Auto) 54.2 Lymph % (Auto) 19.7 [place] % (Auto) 8.7 H Eos % (Auto) 16.3 H Baso % (Auto) 0.6 Lymph # (Auto) 2.18 [place] # (Auto) 1.0 H Eos # (Auto) 1.8 H Baso # (Auto) 0.1 Abs Immat Gran (auto) 0.05 H Absolute Neuts (auto) 6.0 Absolute Nucleated RBC 0.000 Nucleated RBC % 0.0 Sodium 137 Potassium 4.5 Chloride 102 Carbon Dioxide 32 H Anion Gap 3 L BUN 21 H Creatinine 0.96 Estim Creat Clear Calc 50 Estimated GFR 57 L Glucose 90 POC Capillary Glucose 97 Calcium 8.3 L Magnesium 2.2 Total Bilirubin 0.4 AST 18 ALT 12 Alkaline Phosphatase 130 H Total Protein 6.0 L Albumin 2.9 L
[2024-05-08 13:22] VITALS: BMI 10.0
[2024-05-08] MEDS: HALOPERIDOL 5 MG TABLET PO ×2 (13:34→17:57)
[2024-05-08 14:00] VITALS: BP 160/80; PULSE 81; RESP 20; TEMP 36.9; O2SAT 99
[2024-05-08 20:31] VITALS: BP 145/64; PULSE 81; RESP 16; TEMP 36.6; O2SAT 95
[2024-05-08] MEDS: DIVALPROEX SODIUM ER 250 MG TAB.24H PO (20:47)
[2024-05-08] MEDS: OLANZapine 2.5 MG TABLET PO (20:47)
[2024-05-08] MEDS: traZODone HCL 50 MG TABLET PO (20:47)
[2024-05-08] MEDS: ATORVASTATIN 40 MG TABLET PO (20:47)
[2024-05-09] VITALS (9 sets, daily range): BP systolic 148–156; BP diastolic 70–76; PULSE 80–95; RESP 16–20; TEMP 36.4–37.1; O2SAT 93–99
[2024-05-09] MEDS: hydrALAZINE HCL 50 MG TABLET PO ×3 (05:05→20:50)
[2024-05-09 05:35] LABS: Basophils Absolute Auto 0.1 K/mm3 (0.0-0.1); Basophils Percent Auto 0.4 % (0.2-1.2); Eosinophils Absolute Auto 2.5 K/mm3 (0-0.3); Eosinophils Percent Auto 18.4 % (0-4.4); Hematocrit 37.2 % (37.0-47.0); Hemoglobin 12.1 g/dL (12.0-15.0); Immature Granulocyte Absolute 0.08 K/mm3 (0.00-0.031); Immature Granulocyte Percent A 0.6 % (0-0.5); Lymphocytes Absolute Auto 2.68 K/mm3 (0.9-3.2); Lymphocytes Percent Auto 20.1 % (18.3-44.2); Mean Corpuscular HGB Conc 32.5 g/dl (32-36); Mean Corpuscular Hemoglobin 31.9 pg (26-34); Mean Corpuscular Volume 98.2 fl (80-100); Mean Platelet Volume 10.3 fl (7.4-10.4); Monocytes Absolute Auto 0.9 K/mm3 (0.1-0.6); Monocytes Percent Auto 6.6 % (2.6-8.5); Neutrophils Absolute Auto 7.2 K/mm3 (1.3-6.7); Neutrophils Percent Auto 53.9 % (45.5-73.1); Platelet Count Result 143 k/mm3 (150-375); Red Blood Count 3.79 M/mm3 (4.2-5.4); Red Cell Distribution Width 13.8 % (11.5-14.5); White Blood Count 13.4 K/mm3 (4.5-10.0)
[2024-05-09 05:45] LABS: Alanine Aminotransferase 13 U/L (6-35); Albumin Level 3.1 g/dL (3.5-5.1); Alkaline Phosphatase 139 U/L (38-126); Anion Gap 7 mmol/L (4-12); Aspartate Amino Transferase 15 U/L (14-36); Bilirubin,Total 0.4 mg/dL (0.2-1.3); Blood Urea Nitrogen 20 mg/dL (7-17); Calcium 8.8 mg/dL (8.4-10.2); Carbon Dioxide 31 mmol/L (22-30); Chloride 98 mmol/L (98-107); Estimated CRCL calculation 49 ml/min; Estimated Glomerular Filt Rate 56; Glucose 100 mg/dL (65-110); Magnesium 2.2 mg/dL (1.6-2.3); Potassium 4.4 mmol/L (3.4-5.0); Sodium 136 mmol/L (137-145)
[2024-05-09] MEDS: FLUTICASONE PROP 110 MCG INHALER 12 GM (*SP) 1 PUFF INHALATION ×2 (07:44→21:20)
[2024-05-09] MEDS: ALBUTEROL SULFATE (*SP) AEROSOL 1 PUFF 2 PUFF INHALATION ×3 (07:44→21:20)
[2024-05-09] MEDS: oxyBUTYnin CHLORIDE XL 5 MG TAB.ER.24 10 MG PO (08:58)
[2024-05-09] MEDS: SERTRALINE HCL 50 MG TABLET 100 MG PO (08:59)
[2024-05-09] MEDS: SPIRONOLACTONE 25 MG TABLET PO (08:59)
[2024-05-09] MEDS: carBAMazepine 200 MG TABLET PO ×2 (08:59→20:50)
[2024-05-09] MEDS: ASPIRIN 81 MG CHEWABLE TABLET PO (08:59)
[2024-05-09] MEDS: SERTRALINE HCL 25 MG TABLET PO (08:59)
[2024-05-09] MEDS: BENZTROPINE MESYLATE 0.5 MG TABLET PO ×2 (08:59→20:50)
[2024-05-09] MEDS: OLANZapine 2.5 MG TABLET PO ×2 (08:59→20:50)
[2024-05-09] MEDS: DIVALPROEX SODIUM ER 500 MG TAB.24H PO ×2 (08:59→20:50)
[2024-05-09] MEDS: ARIPiprazole 10 MG TABLET 30 MG PO (08:59)
[2024-05-09] MEDS: DOCUSATE SODIUM 100 MG CAPSULE PO (09:00)
[2024-05-09] MEDS: guaiFENesin 12 HR 600 MG TABCR PO ×2 (09:00→20:50)
[2024-05-09] MEDS: carvediloL 3.125 MG TABLET PO ×2 (09:00→20:50)
[2024-05-09] MEDS: MAGNESIUM OXIDE 400 MG TABLET PO (09:00)
[2024-05-09] MEDS: GABAPENTIN 400 MG CAPSULE PO ×3 (09:00→17:37)
[2024-05-09] MEDS: FERROUS SULFATE 325 MG TABLET DR PO (09:00)
[2024-05-09] MEDS: HALOPERIDOL 5 MG TABLET PO ×3 (09:00→17:37)
[2024-05-09] MEDS: FAMOTIDINE 20 MG TABLET PO (09:00)
[2024-05-09] MEDS: VITAMIN B COMPLEX CAPSULE 1 CAP PO (09:00)
[2024-05-09] MEDS: amLODIPine BESYLATE 10 MG TABLET PO (09:00)
[2024-05-09] MEDS: POTASSIUM CHLORIDE 20 MEQ PACKET (FOR LIQUID) PO (09:01)
[2024-05-09] MEDS: polyethylene glycoL 3350 17 GM POWD.PACK PO (09:01)
[2024-05-09] MEDS: CEFDINIR 300 MG CAPSULE PO ×2 (09:01→20:50)
[2024-05-09 10:21] LABS: Add Urine Microscopic? YES; Appearance Urine Cloudy (Clear); Bacteria Urine 1+ /hpf; Bilirubin Urine Negative (Negative); Blood Urine Negative (Negative); Color Urine Yellow (Yellow); Glucose Urine UA Negative (Negative); Ketones Urine Trace mg/dL (Negative); Leukocyte Esterase Ur 2+ LEU/UL (Negative); Need Manual Microscopic Reviewed; Nitrate Urine Negative (Negative); Protein Urine Trace mg/dL (Negative); Squamous Epithelial Cell Urine Moderate /hpf (Few); Urobilinogen Urine 0.2 mg/dL (<2.0); WBC Urine 21-50 /hpf (0-3)
--- NOTE | 2024-05-09 16:04 | P.PNIM_ITS ---
Progress Note: A&P Assessment and Plan (1) VARSHA (acute kidney injury): Code(s): N17.9 - Acute kidney failure, unspecified Status: Acute (2) Urinary tract infection: Qualifiers: Hematuria presence: without hematuria Urinary tract infection type: acute cystitis Qualified Code(s): N30.00 - Acute cystitis without hematuria Code(s): N39.0 - Urinary tract infection, site not specified Status: Acute (3) Type 2 diabetes mellitus: Qualifiers: Diabetes mellitus [facility] insulin use: without [facility] use Diabetes mellitus complication status: without complication Qualified Code(s): E11.9 - Type 2 diabetes mellitus without complications Code(s): E11.9 - Type 2 diabetes mellitus without complications Status: Chronic (4) Hypertension: Qualifiers: Hypertension type: unspecified Qualified Code(s): I10 - Essential (primary) hypertension Code(s): I10 - Essential (primary) hypertension Status: Chronic (5) Obstructive sleep apnea treated with BiPAP: Code(s): G47.33 - Obstructive sleep apnea (adult) (pediatric) Status: Acute Plan This is a 73-year-old female who presents from a alf with increased weakness over the past 2 days. Decreased p.o. intake. On ED evaluation her vitals were stable. Laboratory workup revealed normal WBC at 9.9 hemoglobin of 13.4 creatinine elevated at 1.7 which is not her baseline suggesting VARSHA. Lactic acid was normal at 1.3 troponin negative TSH was normal at 0.847. Urinalysis showed more than 100 WBC with WBC clumps more than 20 casts along with hyaline casts. Influenza RSV COVID swab was negative. ABG 7.36/55/80/30. Chest x-ray was clear. Head CT with no acute intracranial abnormality. Right knee x-ray showed severe osteoarthritic changes with no acute osseous abnormality. EKG with normal sinus rhythm with nonspecific ST-T changes. Generalized weakness likely due to UTI. VARSHA creatinine 1.7 on admission. Baseline creatinine 0.5 in 2023. Normal saline for hydration. Creatinine down and back to baseline. With IV fluids. Renal ultrasound with no hydronephrosis or renal calculi. UTI pansensitive E coli on 04/21/2024. Start ceftriaxone. Urine culture no growth. Switched to oral cefdinir. Leukocytosis continues to worsen. Recheck urinalysis with improved but still has urine WBC. Chest x-ray with no acute cardiopulmonary disease Right knee osteoarthritis History of seizures Pulmonary hypertension Chronic diastolic Congestive heart failure NIGEL on BiPAP Chronic respiratory failure Asthma/COPD overlap Obesity hypoventilation syndrome GERD Diet-controlled diabetes History of CVA History of schizophrenia DVT prophylaxis SCDs Code status full code Subjective Date/time seen: 05/09/24 16:04 Interval history: Patient is a bit more confused today. No diarrhea. Leukocytosis worsening. Review of Systems Review of Systems: All systems reviewed & are unremarkable except as noted in HPI and below Exam Narrative: GENERAL APPEARANCE: WELL-DEVELOPED, WELL-NOURISHED not in acute distress SKIN: NORMAL COLOR HEAD: NORMOCEPHALIC, NONTRAUMATIC EYES: CLEAR CONJUNCTIVA ENT: OROPHARYNX NORMAL, EARS NORMAL, NOSE NORMAL CHRONIC NASAL CANNULA, 2 LITER/MINUTE NECK: SUPPLE, NONTENDER CHEST AND RESPIRATORY: AIRWAY PATENT, NO RESPIRATORY DISTRESS, NO ACCESSORY MUSCLE USE HEART: REGULAR RATE/RHYTHM ABDOMEN: SOFT, NONTENDER, NO ORGANOMEGALY, QUIET BOWEL SOUNDS VASCULAR: NORMAL PERIPHERAL PULSES, NORMAL CAPILLARY REFILL. MUSCULOSKELETAL: No tenderness NEUROLOGIC: ALERT AND ORIENTED ? 1-2 lower extremity weakness not at baseline Objective Data Vital Signs Vital Signs: Vital Signs - 24 hr 05/08/24 20:00 05/08/24 20:31 05/09/24 05:28 Temperature 98 F 98.7 F Pulse Rate 81 87 Respiratory Rate 16 20 Blood Pressure 145/64 H 156/71 H Pulse Oximetry 95 94 Oxygen Delivery Room Air 05/09/24 07:44 05/09/24 07:44 05/09/24 08:00 Temperature Pulse Rate 95 Respiratory Rate 20 Blood Pressure Pulse Oximetry 93 Oxygen Delivery Room Air Room Air 05/09/24 09:00 05/09/24 11:33 05/09/24 14:00 Temperature 98.5 F Pulse Rate 80 84 80 Respiratory Rate 20 20 Blood Pressure 151/76 H Pulse Oximetry 96 Oxygen Delivery Intake/Output Intake/Output: Intake & Output 05/06/24 05/07/24 05/08/24 05/09/24 23:59 23:59 23:59 23:59 Intake Total 3157 350 830 370 Output Total 1410 1400 500 400 Balance 1747 -1050 330 -30 Meds/Results Medications: Active Medications Generic Name Dose Route Start Last Admin Trade Name Freq PRN Reason Stop Dose Admin Acetaminophen 650 mg 05/05/24 16:18 Acetaminophen 325 Mg Tablet PO Q4H PRN Mild Pain (1-3) or Fever Albuterol 2 puff 05/06/24 09:00 05/09/24 11:33 Albuterol Sulfate (*Sp) Aerosol 1 Puff INHALATION 2 puff QID TEOFILO Administration Albuterol/Ipratropium 3 ml 05/06/24 11:59 Ipratropium 0.5 Mg/Albuterol Sulfate 2.5 Mg Ampul.Neb 3 Ml INHALATION QIDRT PRN Wheezing Amlodipine Besylate 10 mg 05/06/24 09:00 05/09/24 09:00 Amlodipine Besylate 10 Mg Tablet PO 10 mg DAILY TEOFILO Administration Aripiprazole 30 mg 05/06/24 09:00 05/09/24 08:59 Aripiprazole 10 Mg Tablet PO 30 mg DAILY TEOFILO Administration Aspirin 81 mg 05/06/24 09:00 05/09/24 08:59 Aspirin 81 Mg Chewable Tablet PO 81 mg DAILY TEOFILO Administration Atorvastatin Calcium 40 mg 05/05/24 23:00 05/08/24 20:47 Atorvastatin 40 Mg Tablet PO 40 mg HS TEOFILO Administration Benztropine Mesylate 0.5 mg 05/05/24 22:50 05/09/24 08:59 Benztropine Mesylate 0.5 Mg Tablet PO 0.5 mg Q12HR TEOFILO Administration Carbamazepine 200 mg 05/05/24 22:50 05/09/24 08:59 Carbamazepine 200 Mg Tablet PO 200 mg Q12HR TEOFILO Administration Carvedilol 3.125 mg 05/05/24 22:50 05/09/24 09:00 Carvedilol 3.125 Mg Tablet PO 3.125 mg Q12HR TEOFILO Administration Cefdinir 300 mg 05/08/24 09:00 05/09/24 09:01 Cefdinir 300 Mg Capsule PO 300 mg Q12HR TEOFILO Administration Dextrose 12.5 gm 05/05/24 18:11 Dextrose 50% 25 Gm/50 Ml Syringe IV PUSH PRN PRN Hypoglycemia Protocol Divalproex Sodium 250 mg 05/05/24 23:10 05/08/24 20:47 Divalproex Sodium Er 250 Mg Tab.24h PO 250 mg HS TEOFILO Administration Divalproex Sodium 500 mg 05/05/24 22:50 05/09/24 08:59 Divalproex Sodium Er 500 Mg Tab.24h PO 500 mg Q12HR TEOFILO Administration Docusate Sodium 100 mg 05/06/24 09:00 05/09/24 09:00 Docusate Sodium 100 Mg Capsule PO 100 mg DAILY TEOFILO Administration Ergocalciferol 50,000 units 05/16/24 09:00 Ergocalciferol 50,000 Units Capsule PO Q30D [facility] Famotidine 20 mg 05/06/24 09:00 05/09/24 09:00 Famotidine 20 Mg Tablet PO 20 mg DAILY TEOFILO Administration Ferrous Sulfate 325 mg 05/06/24 09:00 05/09/24 09:00 Ferrous Sulfate [address] PO 325 mg DAILY TEOFILO Administration Fluticasone Propionate 1 puff 05/06/24 09:00 05/09/24 10:39 Fluticasone Prop 110 Mcg Inhaler 12 Gm (*Sp) INHALATION Not Given BID [facility] Furosemide 40 mg 05/06/24 09:00 05/06/24 08:43 Furosemide 40 Mg Tablet PO 40 mg BID TEOFILO Administration Gabapentin 400 mg 05/05/24 23:05 05/09/24 13:34 Gabapentin 400 Mg Capsule PO 400 mg TID TEOFILO Administration Glucagon 1 mg 05/05/24 18:11 Glucagon For Inj 1 Mg Vial IM PRN PRN Hypoglycemia Protocol Glucose 15 gm 05/05/24 18:11 Glucose Oral Gel 15 Gm Of Glucse In 37.5 Gm Tube PO PRN PRN Hypoglycemia Protocol Guaifenesin 600 mg 05/05/24 23:05 05/09/24 09:00 Guaifenesin 12 Hr 600 Mg Tabcr PO 600 mg Q12HR TEOFILO Administration Haloperidol 5 mg 05/08/24 13:00 05/09/24 13:34 Haloperidol 5 Mg Tablet PO 5 mg TID TEOFILO Administration Hydralazine HCl 50 mg 05/05/24 23:05 05/09/24 13:34 Hydralazine Hcl 50 Mg Tablet PO 50 mg Q8HR TEOFILO Administration Dextrose 1,000 mls @ 100 mls/hr 05/05/24 18:11 Dextrose 5% 1,000 Ml IVPB PRN PRN Hypoglycemia Protocol Magnesium Oxide 400 mg 05/06/24 09:00 05/09/24 09:00 Magnesium Oxide 400 Mg Tablet PO 400 mg QAM TEOFILO Administration Olanzapine 2.5 mg 05/08/24 21:00 05/09/24 08:59 Olanzapine 2.5 Mg Tablet PO 2.5 mg Q12HR TEOFILO Administration Oxybutynin Chloride 10 mg 05/06/24 09:00 05/09/24 08:58 Oxybutynin Chloride Xl 5 Mg Tab.Er.24 PO 10 mg DAILY TEOFILO Administration Polyethylene Glycol 17 gm 05/06/24 09:00 05/09/24 09:01 Polyethylene Glycol 3350 17 Gm Powd.Pack PO 17 gm DAILY TEOFILO Administration Potassium Chloride 20 meq 05/06/24 09:00 05/09/24 09:01 Potassium Chloride 20 Meq Packet (For Liquid) PO 20 meq DAILY TEOFILO Administration Sertraline HCl 25 mg 05/06/24 09:00 05/09/24 08:59 Sertraline Hcl 25 Mg Tablet PO 25 mg Q24H TEOFILO Administration Sertraline HCl 100 mg 05/06/24 09:00 05/09/24 08:59 Sertraline Hcl 50 Mg Tablet PO 100 mg QAM TEOFILO Administration Spironolactone 25 mg 05/06/24 09:00 05/09/24 08:59 Spironolactone 25 Mg Tablet PO 25 mg DAILY TEOFILO Administration Trazodone HCl 50 mg 05/05/24 23:05 05/08/24 20:47 Trazodone Hcl 50 Mg Tablet PO 50 mg HS TEOFILO Administration Vitamin B Complex 1 cap 05/06/24 09:00 05/09/24 09:00 Vitamin B Complex Capsule PO 1 cap DAILY TEOFILO Administration Radiology Results: ITS Impressions Head CT 05/05/24 14:35 IMPRESSION: No acute intracranial findings. Knee X-Ray 05/05/24 14:41 IMPRESSION: No acute osseous abnormality right knee. Severe osteoarthritic changes. Renal Ultrasound 05/05/24 21:27 IMPRESSION: No hydronephrosis or renal calculi. Chest X-Ray 05/09/24 09:38 IMPRESSION: 1. No acute cardiopulmonary disease. Labs Labs: Laboratory Results - last 24 hr 05/09/24 05/09/24 05:24 09:56 WBC 13.4 H RBC 3.79 L Hgb 12.1 Hct 37.2 MCV 98.2 MCH 31.9 MCHC 32.5 RDW 13.8 Plt Count 143 L MPV 10.3 Immature Gran % (Auto) 0.6 H Neut % (Auto) 53.9 Lymph % (Auto) 20.1 [place] % (Auto) 6.6 Eos % (Auto) 18.4 H Baso % (Auto) 0.4 Lymph # (Auto) 2.68 [place] # (Auto) 0.9 H Eos # (Auto) 2.5 H Baso # (Auto) 0.1 Abs Immat Gran (auto) 0.08 H Absolute Neuts (auto) 7.2 H Absolute Nucleated RBC 0.000 Nucleated RBC % 0.0 Sodium 136 L Potassium 4.4 Chloride 98 Carbon Dioxide 31 H Anion Gap 7 BUN 20 H Creatinine 0.97 Estim Creat Clear Calc 49 Estimated GFR 56 L Glucose 100 Calcium 8.8 Magnesium 2.2 Total Bilirubin 0.4 AST 15 ALT 13 Alkaline Phosphatase 139 H Total Protein 6.0 L Albumin 3.1 L Urine Color Yellow Urine Appearance Cloudy H Urine pH 6.0 Ur Specific [place] 1.020 Urine Protein Trace Urine Glucose (UA) Negative Urine Ketones Trace H Ur Blood (Man) Negative Urine Nitrate Negative Urine Bilirubin Negative Urine Urobilinogen 0.2 Add Ur Microanalysis Reviewed Leukocyte Esterase Rfl 2+ H Urine RBC 6-10 H Urine WBC 21-50 H Ur Squamous Epith Cells Moderate Urine Bacteria 1+ H Urine Casts 3-5
[2024-05-09] MEDS: traZODone HCL 50 MG TABLET PO (20:50)
[2024-05-09] MEDS: ATORVASTATIN 40 MG TABLET PO (20:50)
[2024-05-09] MEDS: DIVALPROEX SODIUM ER 250 MG TAB.24H PO (20:50)
[2024-05-10] VITALS (9 sets, daily range): BP systolic 120–154; BP diastolic 53–78; PULSE 74–81; RESP 16–22; TEMP 36.9–37.3; O2SAT 96–97
[2024-05-10] MEDS: hydrALAZINE HCL 50 MG TABLET PO ×2 (05:20→13:31)
[2024-05-10 05:30] LABS: Basophils Absolute Auto 0.1 K/mm3 (0.0-0.1); Basophils Percent Auto 0.5 % (0.2-1.2); Eosinophils Absolute Auto 3.1 K/mm3 (0-0.3); Eosinophils Percent Auto 27.3 % (0-4.4); Hematocrit 33.4 % (37.0-47.0); Immature Granulocyte Absolute 0.07 K/mm3 (0.00-0.031); Immature Granulocyte Percent A 0.6 % (0-0.5); Lymphocytes Absolute Auto 2.55 K/mm3 (0.9-3.2); Lymphocytes Percent Auto 22.3 % (18.3-44.2); Mean Corpuscular HGB Conc 32.9 g/dl (32-36); Mean Corpuscular Hemoglobin 32.2 pg (26-34); Mean Corpuscular Volume 97.7 fl (80-100); Mean Platelet Volume 10.2 fl (7.4-10.4); Monocytes Absolute Auto 1.1 K/mm3 (0.1-0.6); Monocytes Percent Auto 9.3 % (2.6-8.5); Neutrophils Absolute Auto 4.6 K/mm3 (1.3-6.7); Nucleated Red Blood Cells Perc 0.2 % (0.0-0.2); Platelet Count Result 160 k/mm3 (150-375); Red Blood Count 3.42 M/mm3 (4.2-5.4); Red Cell Distribution Width 13.7 % (11.5-14.5); White Blood Count 11.4 K/mm3 (4.5-10.0)
[2024-05-10 05:48] LABS: Alanine Aminotransferase 12 U/L (6-35); Albumin Level 2.7 g/dL (3.5-5.1); Alkaline Phosphatase 106 U/L (38-126); Anion Gap 2 mmol/L (4-12); Aspartate Amino Transferase 19 U/L (14-36); Bilirubin,Total 0.4 mg/dL (0.2-1.3); Blood Urea Nitrogen 18 mg/dL (7-17); Calcium 8.4 mg/dL (8.4-10.2); Carbon Dioxide 34 mmol/L (22-30); Chloride 99 mmol/L (98-107); Estimated CRCL calculation 63 ml/min; Estimated Glomerular Filt Rate > 60; Glucose 83 mg/dL (65-110); Magnesium 2.2 mg/dL (1.6-2.3); Potassium 4.3 mmol/L (3.4-5.0); Sodium 135 mmol/L (137-145)
[2024-05-10] MEDS: ALBUTEROL SULFATE (*SP) AEROSOL 1 PUFF 2 PUFF INHALATION ×2 (08:22→14:05)
[2024-05-10] MEDS: FLUTICASONE PROP 110 MCG INHALER 12 GM (*SP) 1 PUFF INHALATION (08:22)
[2024-05-10] MEDS: SERTRALINE HCL 25 MG TABLET PO (10:00)
[2024-05-10] MEDS: oxyBUTYnin CHLORIDE XL 5 MG TAB.ER.24 10 MG PO (10:00)
[2024-05-10] MEDS: POTASSIUM CHLORIDE 20 MEQ PACKET (FOR LIQUID) PO (10:00)
[2024-05-10] MEDS: DIVALPROEX SODIUM ER 500 MG TAB.24H PO (10:00)
[2024-05-10] MEDS: HALOPERIDOL 5 MG TABLET PO ×3 (10:01→16:49)
[2024-05-10] MEDS: carBAMazepine 200 MG TABLET PO (10:01)
[2024-05-10] MEDS: amLODIPine BESYLATE 10 MG TABLET PO (10:01)
[2024-05-10] MEDS: FAMOTIDINE 20 MG TABLET PO (10:01)
[2024-05-10] MEDS: SERTRALINE HCL 50 MG TABLET 100 MG PO (10:01)
[2024-05-10] MEDS: CEFDINIR 300 MG CAPSULE PO (10:01)
[2024-05-10] MEDS: BENZTROPINE MESYLATE 0.5 MG TABLET PO (10:02)
[2024-05-10] MEDS: OLANZapine 2.5 MG TABLET PO (10:02)
[2024-05-10] MEDS: guaiFENesin 12 HR 600 MG TABCR PO (10:02)
[2024-05-10] MEDS: ASPIRIN 81 MG CHEWABLE TABLET PO (10:02)
[2024-05-10] MEDS: carvediloL 3.125 MG TABLET PO (10:02)
[2024-05-10] MEDS: MAGNESIUM OXIDE 400 MG TABLET PO (10:02)
[2024-05-10] MEDS: SPIRONOLACTONE 25 MG TABLET PO (10:03)
[2024-05-10] MEDS: ARIPiprazole 10 MG TABLET 30 MG PO (10:03)
[2024-05-10] MEDS: VITAMIN B COMPLEX CAPSULE 1 CAP PO (10:03)
[2024-05-10] MEDS: FERROUS SULFATE 325 MG TABLET DR PO (10:03)
[2024-05-10] MEDS: GABAPENTIN 400 MG CAPSULE PO ×3 (10:03→16:49)
--- NOTE | 2024-05-10 11:03 | P.PNIM_ITS ---
Progress Note: A&P Assessment and Plan (1) VARSHA (acute kidney injury): Code(s): N17.9 - Acute kidney failure, unspecified Status: Acute (2) Urinary tract infection: Qualifiers: Hematuria presence: without hematuria Urinary tract infection type: acute cystitis Qualified Code(s): N30.00 - Acute cystitis without hematuria Code(s): N39.0 - Urinary tract infection, site not specified Status: Acute (3) Type 2 diabetes mellitus: Qualifiers: Diabetes mellitus complication status: without complication Diabetes mellitus prison insulin use: without prison use Qualified Code(s): E11.9 - Type 2 diabetes mellitus without complications Code(s): E11.9 - Type 2 diabetes mellitus without complications Status: Chronic (4) Hypertension: Qualifiers: Hypertension type: unspecified Qualified Code(s): I10 - Essential (primary) hypertension Code(s): I10 - Essential (primary) hypertension Status: Chronic (5) Obstructive sleep apnea treated with BiPAP: Code(s): G47.33 - Obstructive sleep apnea (adult) (pediatric) Status: Acute Plan This is a 73-year-old female who presents from a fdc with increased weakness over the past 2 days. Decreased p.o. intake. On ED evaluation her vitals were stable. Laboratory workup revealed normal WBC at 9.9 hemoglobin of 13.4 creatinine elevated at 1.7 which is not her baseline suggesting VARSHA. Lactic acid was normal at 1.3 troponin negative TSH was normal at 0.847. Urinalysis showed more than 100 WBC with WBC clumps more than 20 casts along with hyaline casts. Influenza RSV COVID swab was negative. ABG 7.36/55/80/30. Chest x-ray was clear. Head CT with no acute intracranial abnormality. Right knee x-ray showed severe osteoarthritic changes with no acute osseous abnormality. EKG with normal sinus rhythm with nonspecific ST-T changes. Generalized weakness likely due to UTI. VARSHA creatinine 1.7 on admission. Baseline creatinine 0.5 in 2023. Normal saline for hydration. Creatinine down and back to baseline. With IV fluids. Renal ultrasound with no hydronephrosis or renal calculi. UTI pansensitive E coli on 04/21/2024. Start ceftriaxone. Urine culture no growth. Switched to oral cefdinir. Leukocytosis continues to worsen. Recheck urinalysis with improved but still has urine WBC. Chest x-ray with no acute cardiopulmonary disease further workup with CT chest abdomen pelvis revealed multiple different findings with wall thickening in the distal sigmoid and rectum with mild chronic inflammatory change. There is also stranding around the pancreatic head and questionable inflammatory stranding in the ketan hepatitis. Lipase level was checked and was normal. Will further evaluate these pancreatic and right upper quadrant findings with MRI. Possible diverticulitis on sigmoid area added Flagyl. GI consultation. This area likely res evaluation colonoscoppically. Leukocytosis does seem improved today without any change in antibiotic. Will continue cefdinir and Flagyl Right knee osteoarthritis History of seizures Pulmonary hypertension Chronic diastolic Congestive heart failure NIGEL on BiPAP Chronic respiratory failure Asthma/COPD overlap Obesity hypoventilation syndrome GERD Diet-controlled diabetes History of CVA History of schizophrenia DVT prophylaxis SCDs Code status full code Subjective Date/time seen: 05/10/24 11:03 Interval history: No overnight events. Patient mildly confused. Remains afebrile. Denies any obvious abdominal pain nausea vomiting. Review of Systems Review of Systems: All systems reviewed & are unremarkable except as noted in HPI and below Exam Narrative: GENERAL APPEARANCE: WELL-DEVELOPED, WELL-NOURISHED not in acute distress SKIN: NORMAL COLOR HEAD: NORMOCEPHALIC, NONTRAUMATIC EYES: CLEAR CONJUNCTIVA ENT: OROPHARYNX NORMAL, EARS NORMAL, NOSE NORMAL CHRONIC NASAL CANNULA, 2 LIT ER/MINUTE NECK: SUPPLE, NONTENDER CHEST AND RESPIRATORY: AIRWAY PATENT, NO RESPIRATORY DISTRESS, NO ACCESSORY MUSCLE USE HEART: REGULAR RATE/RHYTHM ABDOMEN: SOFT, NONTENDER, NO ORGANOMEGALY, QUIET BOWEL SOUNDS VASCULAR: NORMAL PERIPHERAL PULSES, NORMAL CAPILLARY REFILL. MUSCULOSKELETAL: No tenderness NEUROLOGIC: ALERT AND ORIENTED ? 1-2 lower extremity weakness not at baseline Objective Data Vital Signs Vital Signs: Vital Signs - 24 hr 05/09/24 11:33 05/09/24 14:00 05/09/24 20:00 Temperature 98.5 F Pulse Rate 84 80 Respiratory Rate 20 20 Blood Pressure 151/76 H Pulse Oximetry 96 Oxygen Delivery Room Air 05/09/24 21:20 05/09/24 21:30 05/09/24 21:35 Temperature 97.6 F Pulse Rate 80 80 86 Respiratory Rate 16 16 18 Blood Pressure 148/70 H Pulse Oximetry 99 Oxygen Delivery 05/09/24 22:16 05/10/24 06:00 05/10/24 08:23 Temperature 98.4 F Pulse Rate 79 81 Respiratory Rate 16 16 Blood Pressure 154/78 H Pulse Oximetry 96 97 Oxygen Delivery Room Air 05/10/24 10:02 Temperature Pulse Rate 80 Respiratory Rate Blood Pressure Pulse Oximetry Oxygen Delivery Intake/Output Intake/Output: Intake & Output 05/07/24 05/08/24 05/09/24 05/10/24 23:59 23:59 23:59 23:59 Intake Total 350 830 450 118 Output Total 1400 500 850 400 Balance -1050 330 -400 -282 Meds/Results Medications: Active Medications Generic Name Dose Route Start Last Admin Trade Name Freq PRN Reason Stop Dose Admin Acetaminophen 650 mg 05/05/24 16:18 Acetaminophen 325 Mg Tablet PO Q4H PRN Mild Pain (1-3) or Fever Albuterol 2 puff 05/06/24 09:00 05/10/24 10:05 Albuterol Sulfate (*Sp) Aerosol 1 Puff INHALATION Not Given QID TEOFILO Albuterol/Ipratropium 3 ml 05/06/24 11:59 Ipratropium 0.5 Mg/Albuterol Sulfate 2.5 Mg Ampul.Neb 3 Ml INHALATION QIDRT PRN Wheezing Amlodipine Besylate 10 mg 05/06/24 09:00 05/10/24 10:01 Amlodipine Besylate 10 Mg Tablet PO 10 mg DAILY TEOFILO Administration Aripiprazole 30 mg 05/06/24 09:00 05/10/24 10:03 Aripiprazole 10 Mg Tablet PO 30 mg DAILY TEOFILO Administration Aspirin 81 mg 05/06/24 09:00 05/10/24 10:02 Aspirin 81 Mg Chewable Tablet PO 81 mg DAILY TEOFILO Administration Atorvastatin Calcium 40 mg 05/05/24 23:00 05/09/24 20:50 Atorvastatin 40 Mg Tablet PO 40 mg HS TEOFILO Administration Benztropine Mesylate 0.5 mg 05/05/24 22:50 05/10/24 10:02 Benztropine Mesylate 0.5 Mg Tablet PO 0.5 mg Q12HR TEOFILO Administration Carbamazepine 200 mg 05/05/24 22:50 05/10/24 10:01 Carbamazepine 200 Mg Tablet PO 200 mg Q12HR TEOFILO Administration Carvedilol 3.125 mg 05/05/24 22:50 05/10/24 10:02 Carvedilol 3.125 Mg Tablet PO 3.125 mg Q12HR TEOFILO Administration Cefdinir 300 mg 05/08/24 09:00 05/10/24 10:01 Cefdinir 300 Mg Capsule PO 300 mg Q12HR TEOFILO Administration Dextrose 12.5 gm 05/05/24 18:11 Dextrose 50% 25 Gm/50 Ml Syringe IV PUSH PRN PRN Hypoglycemia Protocol Divalproex Sodium 250 mg 05/05/24 23:10 05/09/24 20:50 Divalproex Sodium Er 250 Mg Tab.24h PO 250 mg HS TEOFILO Administration Divalproex Sodium 500 mg 05/05/24 22:50 05/10/24 10:00 Divalproex Sodium Er 500 Mg Tab.24h PO 500 mg Q12HR TEOFILO Administration Docusate Sodium 100 mg 05/06/24 09:00 05/10/24 10:04 Docusate Sodium 100 Mg Capsule PO Not Given DAILY TEOFILO Ergocalciferol 50,000 units 05/16/24 09:00 Ergocalciferol 50,000 Units Capsule PO Q30D TEOFILO Famotidine 20 mg 05/06/24 09:00 05/10/24 10:01 Famotidine 20 Mg Tablet PO 20 mg DAILY TEOFILO Administration Ferrous Sulfate 325 mg 05/06/24 09:00 05/10/24 10:03 Ferrous Sulfate [address] PO 325 mg DAILY TEOFILO Administration Fluticasone Propionate 1 puff 05/06/24 09:00 05/10/24 08:22 Fluticasone Prop 110 Mcg Inhaler 12 Gm (*Sp) INHALATION 1 puff BID TEOFILO Administration Furosemide 40 mg 05/06/24 09:00 05/06/24 08:43 Furosemide 40 Mg Tablet PO 40 mg BID TEOFILO Administration Gabapentin 400 mg 05/05/24 23:05 05/10/24 10:03 Gabapentin 400 Mg Capsule PO 400 mg TID TEOFILO Administration Glucagon 1 mg 05/05/24 18:11 Glucagon For Inj 1 Mg Vial IM PRN PRN Hypoglycemia Protocol Glucose 15 gm 05/05/24 18:11 Glucose Oral Gel 15 Gm Of Glucse In 37.5 Gm Tube PO PRN PRN Hypoglycemia Protocol Guaifenesin 600 mg 05/05/24 23:05 05/10/24 10:02 Guaifenesin 12 Hr 600 Mg Tabcr PO 600 mg Q12HR TEOFILO Administration Haloperidol 5 mg 05/08/24 13:00 05/10/24 10:01 Haloperidol 5 Mg Tablet PO 5 mg TID TEOFILO Administration Hydralazine HCl 50 mg 05/05/24 23:05 05/10/24 05:20 Hydralazine Hcl 50 Mg Tablet PO 50 mg Q8HR TEOFILO Administration Dextrose 1,000 mls @ 100 mls/hr 05/05/24 18:11 Dextrose 5% 1,000 Ml IVPB PRN PRN Hypoglycemia Protocol Metronidazole 500 mg in 100 mls @ 100 mls/hr 05/10/24 21:00 Flagyl 500 Mg/Iso Soln 100 Ml IVPB Q8HR TEOFILO Metronidazole 500 mg in 100 mls @ 100 mls/hr 05/10/24 12:00 Flagyl 500 Mg/Iso Soln 100 Ml IVPB 05/10/24 12:59 ONCE ONE Magnesium Oxide 400 mg 05/06/24 09:00 05/10/24 10:02 Magnesium Oxide 400 Mg Tablet PO 400 mg QAM TEOFILO Administration Olanzapine 2.5 mg 05/08/24 21:00 05/10/24 10:02 Olanzapine 2.5 Mg Tablet PO 2.5 mg Q12HR TEOFILO Administration Oxybutynin Chloride 10 mg 05/06/24 09:00 05/10/24 10:00 Oxybutynin Chloride Xl 5 Mg Tab.Er.24 PO 10 mg DAILY TEOFILO Administration Polyethylene Glycol 17 gm 05/06/24 09:00 05/10/24 10:04 Polyethylene Glycol 3350 17 Gm Powd.Pack PO Not Given DAILY TEOFILO Potassium Chloride 20 meq 05/06/24 09:00 05/10/24 10:00 Potassium Chloride 20 Meq Packet (For Liquid) PO 20 meq DAILY TEOFILO Administration Sertraline HCl 25 mg 05/06/24 09:00 05/10/24 10:00 Sertraline Hcl 25 Mg Tablet PO 25 mg Q24H TEOFILO Administration Sertraline HCl 100 mg 05/06/24 09:00 05/10/24 10:01 Sertraline Hcl 50 Mg Tablet PO 100 mg QAM TEOFILO Administration Spironolactone 25 mg 05/06/24 09:00 05/10/24 10:03 Spironolactone 25 Mg Tablet PO 25 mg DAILY TEOFILO Administration Trazodone HCl 50 mg 05/05/24 23:05 05/09/24 20:50 Trazodone Hcl 50 Mg Tablet PO 50 mg HS TEOFILO Administration Vitamin B Complex 1 cap 05/06/24 09:00 05/10/24 10:03 Vitamin B Complex Capsule PO 1 cap DAILY TEOFILO Administration Radiology Results: ITS Impressions Head CT 05/05/24 14:35 IMPRESSION: No acute intracranial findings. Knee X-Ray 05/05/24 14:41 IMPRESSION: No acute osseous abnormality right knee. Severe osteoarthritic changes. Renal Ultrasound 05/05/24 21:27 IMPRESSION: No hydronephrosis or renal calculi. Chest X-Ray 05/09/24 09:38 IMPRESSION: 1. No acute cardiopulmonary disease. Chest/Abdomen/Pelvis CT 05/09/24 22:39 IMPRESSION: Mild inflammatory stranding at the ketan hepatis with poorly visualized ducts, probably secondary to reactive change and motion artifact, noting that cholangitis could appear similarly. Suggestion of stranding about the pancreatic head, consider acute interstitial pancreatitis and correlate with pancreatic labs. Distal sigmoid and rectal wall thickening, may represent infectious, inflammato ry, or ischemic colitis. Mild body wall edema. Mild inflammatory change around a small fat-containing of local hernia, correlate for pain/tenderness. Labs Labs: Laboratory Results - last 24 hr 05/10/24 05:17 WBC 11.4 H RBC 3.42 L Hgb 11.0 L Hct 33.4 L MCV 97.7 MCH 32.2 MCHC 32.9 RDW 13.7 Plt Count 160 MPV 10.2 Immature Gran % (Auto) 0.6 H Neut % (Auto) 40.0 L Lymph % (Auto) 22.3 [place] % (Auto) 9.3 H Eos % (Auto) 27.3 H Baso % (Auto) 0.5 Lymph # (Auto) 2.55 [place] # (Auto) 1.1 H Eos # (Auto) 3.1 H Baso # (Auto) 0.1 Abs Immat Gran (auto) 0.07 H Absolute Neuts (auto) 4.6 Absolute Nucleated RBC 0.020 H Nucleated RBC % 0.2 Sodium 135 L Potassium 4.3 Chloride 99 Carbon Dioxide 34 H Anion Gap 2 L BUN 18 H Creatinine 0.75 Estim Creat Clear Calc 63 Estimated GFR > 60 Glucose 83 Calcium 8.4 Magnesium 2.2 Total Bilirubin 0.4 AST 19 ALT 12 Alkaline Phosphatase 106 Total Protein 6.0 L Albumin 2.7 L
[2024-05-10 11:17] LABS: Lipase 23 U/L (23-300)
[2024-05-10] MEDS: metroNIDAZOLE 500 MG/ISO 100ML 500 MG/100 ML BAG 100 MG IVPB ×2 (11:58→21:34)
--- NOTE | 2024-05-10 18:49 | P.CONGI_ITS ---
Assessment and Plan Assessment and plan (1) Diverticulitis: Code(s): K57.92 - Diverticulitis of intestine, part unspecified, without perforation or abscess without bleeding Status: Acute Assessment and Plan: The patient's clinical presentation and CT findings are consistent with mild, uncomplicated diverticulitis. The current antibiotic regimen adequately addresses both the diverticulitis and the concurrent urinary tract infection. The goal is to achieve normalization of the white blood cell count before discharge. A total 14-day course of antibiotics is recommended, either with amoxicillin/clavulanate or ciprofloxacin and metronidazole. Given the potential for quinolone interactions with the patient's psychiatric medications, amoxicillin/clavulanate is the preferred option. GI Consult Note Consult date/time: 05/10/24 18:49 HPI: Yenny Hernandez, a 73-year-old female with a history of COPD, dementia, and CHF with diastolic dysfunction, was admitted on May 05 for acute exacerbation of shortness of breath. Initial evaluation revealed leukocyturia, and she was started on ceftriaxone. Subsequent abdominal CT imaging demonstrated significant sigmoid and rectosigmoid colon wall thickening with presacral edema, concerning for diverticulitis. Non-contrast CT also revealed mild peripancreatic and ketan hepatis stranding. However, the patient denied abdominal pain, and her lipase level was within normal limits, making pancreatitis less likely. Given the CT findings antibiotic coverage was broadened to include Omnicef, and intravenous metronidazole was added today. Review of Systems 2 Review of Systems: All systems reviewed & are unremarkable except as noted in HPI and below PMFSH Past Medical History Medical History Seizure disorder Pulmonary hypertension Severe on echo in August 2021 with an estimated PASP of 63 mmHg. Diastolic congestive heart failure EF 60 to 65% in August 2021. Obstructive sleep apnea treated with BiPAP Depression Chronic respiratory failure with hypoxia and hypercapnia Asthma-COPD overlap syndrome Obesity hypoventilation syndrome Hypertension Deep venous thrombosis Gastroesophageal reflux disease Type 2 diabetes mellitus Diet-controlled with a recent A1c of 5.2%. Migraine headache Cerebrovascular accident Schizophrenia Surgical History Surgical History History of cardiac catheterization History of cholecystectomy History of sinus surgery History of arthroscopy of right knee History of section, classical History of left hip replacement Family History Family History Mother Heart disease Cancer Cerebrovascular accident Sibling Pacemaker Social History Social History Social History: Surrogate medical decision maker: Carri Rangel. Code status: Full code. Smoking packs per day: 1 Smoking cigarettes per day: 20.0 Years smoked: 21 Smoking pack-years: 21.00 Smoking status: Former smoker Second hand tobacco smoke exposure: Yes Alcohol intake: unknown Substance use: unknown Substance use type: does not use Lack of Transportation: No Lack of Food: Never True Current Housing: I Have Housing Concerned About Future Housing: No Difficulty Paying Gas/Electric Bills: No Difficulty Paying for Meds: No Currently Unemployed: No Education: High School Diploma/GED Difficulty w/ Childcare or Family Care: No Living arrangements: detention Additional living arrangements comments: Resident at [facility]. Likes to color and do crafts. Has 4 children. Occupation/Education: retired Additional occupation/education comments: Disabled. Spiritual care concerns: No Agree to blood products: Yes Meds Home Medications and Allergies Home Medications ?Medication ?Instructions ?Recorded ?Confirmed ?Type benztropine 0.5 mg tablet 0.5 mg PO Q12H 01/24/20 05/05/24 History carbamazepine 200 mg tablet 200 mg PO Q12H 01/24/20 05/05/24 History haloperidol 5 mg tablet 5 mg PO TID 01/25/20 05/05/24 History trazodone 50 mg tablet 50 mg PO HS 01/25/20 05/05/24 History carvedilol 3.125 mg tablet 3.125 mg PO Q12H 05/22/21 05/05/24 History atorvastatin 20 mg tablet 40 mg PO HS 09/10/21 05/05/24 History gabapentin 400 mg capsule 400 mg PO TID 04/29/22 05/05/24 History ipratropium 0.5 mg-albuterol 3 mg 3 ml inhalation QID #180 mL 06/25/22 05/05/24 Rx (2.5 mg base)/3 mL nebulization soln fluticasone propionate 110 1 puff inhalation BID 08/09/22 05/05/24 History mcg/actuation HFA aerosol inhaler (Flovent HFA) polyethylene glycol 3350 17 gram 17 g PO DAILY 08/09/22 05/05/24 History oral powder packet divalproex 250 mg tablet,extended 750 mg PO HS 08/10/22 05/05/24 History release 24 hr aripiprazole 30 mg tablet 30 mg PO DAILY 08/25/22 05/05/24 History aspirin 81 mg tablet 81 mg PO DAILY 08/25/22 05/05/24 History ergocalciferol (vitamin D2) 1,250 1,250 mcg PO MONTHLY 08/25/22 05/05/24 History mcg (50,000 unit) capsule famotidine 20 mg tablet 20 mg PO DAILY 08/25/22 05/05/24 History ferrous sulfate 325 mg (65 mg 325 mg PO DAILY 08/25/22 05/05/24 History iron) tablet guaifenesin 600 mg tablet, 600 mg PO Q12HR #30 tabs 08/28/22 05/05/24 Rx extended release 12 hr (Mucus Relief ER) magnesium oxide 400 mg (241.3 mg 400 mg PO QAM #30 tabs 08/28/22 05/05/24 Rx magnesium) tablet potassium chloride 20 mEq oral 20 meq PO DAILY #30 ea 08/28/22 05/05/24 Rx packet acetaminophen 500 mg tablet 1,000 mg PO TID PRN pain 05/02/23 05/05/24 History albuterol sulfate 90 mcg/actuation 2 puff inhalation QID 05/02/23 05/05/24 History aerosol inhaler amlodipine 5 mg tablet 10 mg PO DAILY 05/02/23 05/05/24 History divalproex 500 mg tablet,extended 500 mg PO Q12H 05/02/23 05/05/24 History release 24 hr docusate sodium 100 mg capsule 100 mg PO DAILY 05/02/23 05/05/24 History hydralazine 50 mg tablet 50 mg PO TID 05/02/23 05/05/24 History olanzapine 2.5 mg tablet 2.5 mg PO Q12H 05/02/23 05/06/24 History sertraline 25 mg tablet 25 mg PO Q24H 05/02/23 05/05/24 History sertraline 50 mg tablet 100 mg PO Q24H 05/02/23 05/05/24 History vitamin B complex 1 tablet PO DAILY 05/02/23 05/05/24 History spironolactone 25 mg tablet 25 mg PO DAILY 12/14/23 05/05/24 History furosemide 40 mg tablet 40 mg PO BID 05/05/24 05/05/24 History oxybutynin chloride 10 mg 10 mg PO DAILY 05/05/24 05/05/24 History tablet,extended release 24 hr Allergies Allergy/AdvReac Type Severity Reaction Status Date / Time Penicillins Allergy Unknown Hives / Verified 05/05/24 13:58 Red Face Vital Signs Vital Signs - 24 hr 05/09/24 20:00 05/09/24 21:20 05/09/24 21:30 Temperature Pulse Rate 80 80 Respiratory Rate 16 16 Blood Pressure Pulse Oximetry Oxygen Delivery Room Air 05/09/24 21:35 05/09/24 22:16 05/10/24 06:00 Temperature 97.6 F 98.4 F Pulse Rate 86 79 Respiratory Rate 18 16 Blood Pressure 148/70 H 154/78 H Pulse Oximetry 99 96 97 Oxygen Delivery Room Air 05/10/24 08:23 05/10/24 10:02 05/10/24 10:03 Temperature Pulse Rate 81 80 Respiratory Rate 16 16 Blood Pressure Pulse Oximetry 97 Oxygen Delivery Room Air 05/10/24 13:41 05/10/24 14:05 Temperature 99.1 F Pulse Rate 80 77 Respiratory Rate 18 16 Blood Pressure 148/71 H Pulse Oximetry 97 Oxygen Delivery Exam 2 Narrative: The patient is cooperative but drowsy, probably secondary to multiple psychiatric medications including haloperidol. Abdomen: Soft, tender in both lower quadrants, no rebound. Results Labs 05/10/24 05:17 05/10/24 05:17 Labs: Short CBC 05/10/24 Range/Units 05:17 WBC 11.4 H (4.5-10.0) K/mm3 Hgb 11.0 L (12.0-15.0) g/dL Hct 33.4 L (37.0-47.0) % Plt Count 160 (150-375) k/mm3 BMP 05/10/24 05:17 Sodium 135 L Potassium 4.3 Chloride 99 Carbon Dioxide 34 H BUN 18 H Creatinine 0.75 Glucose 83 Calcium 8.4 Liver Function 05/10/24 Range/Units 05:17 Total Bilirubin 0.4 (0.2-1.3) mg/dL AST 19 (14-36) U/L ALT 12 (6-35) U/L Alkaline Phosphatase 106 (38-126) U/L Albumin 2.7 L (3.5-5.1) g/dL
[2024-05-10] MEDS: IPRATROPIUM 0.5 MG/ALBUTEROL SULFATE 2.5 MG AMPUL.NEB 3 ML INHALATION (19:46)
[2024-05-10 22:59] LABS: Alveolar/Arterial O2 Gradient 52.7 mmHg; Base Excess ABG 1.6 mEq/l (+/-2.0); Fractional Inspired Oxygen 28 %; HCO3 ABG 27.1 mEq/l (22.0-26.0); Oxygen Content ABG 14.7 %vol (16.0-22.0); Oxygen Saturation ABG 96.8 % (95.0-100.0); Oxyhemoglobin 95.7 % THb (90.0-100.0); PCO2 ABG 46.7 mmHg (35.0-45.0); PO2 ABG 91.8 mmHg (80.0-100.0); PO2 FiO2 Ratio Arterial Blood 3.28 %; Total Hemoglobin 10.8 g/dL (12.0-18.0); pH ABG 7.382 (7.350-7.450)
[2024-05-10 23:02] LABS: Device BIPAP; Modified Allen's Test Pass; Site Drawn LEFT RADIAL
[2024-05-11] VITALS (10 sets, daily range): BP systolic 152–164; BP diastolic 74–85; PULSE 71–80; RESP 10–20; TEMP 36.8–37.1; O2SAT 94–97
[2024-05-11] MEDS: carvediloL 3.125 MG TABLET PO ×3 (00:23→23:20)
[2024-05-11] MEDS: carBAMazepine 200 MG TABLET PO ×3 (00:23→23:20)
[2024-05-11] MEDS: CEFDINIR 300 MG CAPSULE PO ×3 (00:23→23:20)
[2024-05-11] MEDS: guaiFENesin 12 HR 600 MG TABCR PO ×3 (00:23→23:20)
[2024-05-11] MEDS: BENZTROPINE MESYLATE 0.5 MG TABLET PO ×3 (00:23→23:19)
[2024-05-11] MEDS: DIVALPROEX SODIUM ER 500 MG TAB.24H PO ×3 (00:23→23:19)
[2024-05-11] MEDS: hydrALAZINE HCL 50 MG TABLET PO ×4 (00:24→23:20)
[2024-05-11] MEDS: ATORVASTATIN 40 MG TABLET PO ×2 (00:24→23:19)
[2024-05-11] MEDS: DIVALPROEX SODIUM ER 250 MG TAB.24H PO ×2 (00:24→23:20)
[2024-05-11] MEDS: metroNIDAZOLE 500 MG/ISO 100ML 500 MG/100 ML BAG 100 MG IVPB ×3 (05:12→23:22)
[2024-05-11 05:21] LABS: Basophils Percent Auto 0.4 % (0.2-1.2); Eosinophils Absolute Auto 3.5 K/mm3 (0-0.3); Eosinophils Percent Auto 32.8 % (0-4.4); Hematocrit 33.4 % (37.0-47.0); Hemoglobin 10.6 g/dL (12.0-15.0); Immature Granulocyte Absolute 0.06 K/mm3 (0.00-0.031); Immature Granulocyte Percent A 0.6 % (0-0.5); Lymphocytes Absolute Auto 2.33 K/mm3 (0.9-3.2); Lymphocytes Percent Auto 21.7 % (18.3-44.2); Mean Corpuscular HGB Conc 31.7 g/dl (32-36); Mean Corpuscular Hemoglobin 31.5 pg (26-34); Mean Corpuscular Volume 99.4 fl (80-100); Mean Platelet Volume 10.1 fl (7.4-10.4); Monocytes Absolute Auto 1.2 K/mm3 (0.1-0.6); Monocytes Percent Auto 10.7 % (2.6-8.5); Neutrophils Absolute Auto 3.6 K/mm3 (1.3-6.7); Neutrophils Percent Auto 33.8 % (45.5-73.1); Nucleated Red Blood Cells Perc 0.2 % (0.0-0.2); Platelet Count Result 154 k/mm3 (150-375); Red Blood Count 3.36 M/mm3 (4.2-5.4); Red Cell Distribution Width 13.9 % (11.5-14.5); White Blood Count 10.7 K/mm3 (4.5-10.0)
[2024-05-11 05:27] LABS: Alanine Aminotransferase 12 U/L (6-35); Albumin Level 2.8 g/dL (3.5-5.1); Alkaline Phosphatase 120 U/L (38-126); Anion Gap 6 mmol/L (4-12); Aspartate Amino Transferase 18 U/L (14-36); Bilirubin,Total 0.2 mg/dL (0.2-1.3); Blood Urea Nitrogen 15 mg/dL (7-17); Calcium 8.7 mg/dL (8.4-10.2); Carbon Dioxide 33 mmol/L (22-30); Chloride 98 mmol/L (98-107); Estimated CRCL calculation 55 ml/min; Estimated Glomerular Filt Rate > 60; Glucose 85 mg/dL (65-110); Magnesium 2.2 mg/dL (1.6-2.3); Potassium 3.9 mmol/L (3.4-5.0); Sodium 137 mmol/L (137-145)
[2024-05-11] MEDS: FLUTICASONE PROP 110 MCG INHALER 12 GM (*SP) 1 PUFF INHALATION ×2 (08:03→19:48)
[2024-05-11] MEDS: ALBUTEROL SULFATE (*SP) AEROSOL 1 PUFF 2 PUFF INHALATION ×4 (08:03→19:48)
[2024-05-11] MEDS: ARIPiprazole 10 MG TABLET 30 MG PO (08:46)
[2024-05-11] MEDS: SERTRALINE HCL 50 MG TABLET 100 MG PO (08:46)
[2024-05-11] MEDS: SERTRALINE HCL 25 MG TABLET PO (08:46)
[2024-05-11] MEDS: HALOPERIDOL 5 MG TABLET PO ×3 (08:46→17:07)
[2024-05-11] MEDS: polyethylene glycoL 3350 17 GM POWD.PACK PO (08:46)
[2024-05-11] MEDS: VITAMIN B COMPLEX CAPSULE 1 CAP PO (08:47)
[2024-05-11] MEDS: MAGNESIUM OXIDE 400 MG TABLET PO (08:47)
[2024-05-11] MEDS: POTASSIUM CHLORIDE 20 MEQ PACKET (FOR LIQUID) PO (08:47)
[2024-05-11] MEDS: amLODIPine BESYLATE 10 MG TABLET PO (08:47)
[2024-05-11] MEDS: GABAPENTIN 400 MG CAPSULE PO ×3 (08:47→17:07)
[2024-05-11] MEDS: SPIRONOLACTONE 25 MG TABLET PO (08:47)
[2024-05-11] MEDS: oxyBUTYnin CHLORIDE XL 5 MG TAB.ER.24 10 MG PO (08:47)
[2024-05-11] MEDS: ASPIRIN 81 MG CHEWABLE TABLET PO (08:47)
[2024-05-11] MEDS: OLANZapine 2.5 MG TABLET PO ×2 (08:47→23:19)
[2024-05-11] MEDS: FAMOTIDINE 20 MG TABLET PO (08:48)
[2024-05-11] MEDS: FERROUS SULFATE 325 MG TABLET DR PO (08:48)
[2024-05-11] MEDS: DOCUSATE SODIUM 100 MG CAPSULE PO (08:48)
--- NOTE | 2024-05-11 16:16 | WPDGIPROGNO ---
Progress Note: A&P Assessment and Plan (1) Diverticulitis: Code(s): K57.92 - Diverticulitis of intestine, part unspecified, without perforation or abscess without bleeding Status: Acute Assessment and Plan: The patient is getting better from the infectious standpoint, with the current antibiotic regimen. From my standpoint, she can be discharged home tomorrow on antibiotics to cover anaerobic and anaerobic, preferably amoxicillin/clavulanic acid as discussed in yesterday's note, since quinolones can interact significantly with her psychotropic medication regimen. She should complete a total 14 days of treatment, which should also cover her current urinary tract infection. Subjective Date/time seen: 05/11/24 16:16 Interval history: The patient is doing better, white count trending down, no fever, No abdominal pain. Exam Narrative: Abdomen: Soft, nontender, no rebound. Rectal examination within normal limits Objective Data Vital Signs Vital Signs: Vital Signs - 24 hr 05/10/24 19:35 05/10/24 19:46 05/10/24 19:46 Temperature 98.5 F Pulse Rate 78 75 74 Respiratory Rate 16 22 H 16 Blood Pressure 120/53 L Pulse Oximetry 96 96 97 Oxygen Delivery Autopap Nasal Cannula Oxygen Flow Rate 2 05/10/24 19:46 05/10/24 20:00 05/11/24 02:11 Temperature Pulse Rate 74 Respiratory Rate 16 10 L Blood Pressure Pulse Oximetry 97 Oxygen Delivery Nasal Cannula Autopap Oxygen Flow Rate 2 05/11/24 04:22 05/11/24 08:07 05/11/24 08:48 Temperature 98.2 F Pulse Rate 71 72 Respiratory Rate 18 Blood Pressure 152/85 H Pulse Oximetry 97 96 Oxygen Delivery Nasal Cannula Oxygen Flow Rate 2 05/11/24 08:48 05/11/24 14:00 Temperature 98.7 F Pulse Rate 78 Respiratory Rate 18 16 Blood Pressure 155/74 H Pulse Oximetry 96 94 Oxygen Delivery Nasal Cannula Oxygen Flow Rate 2 Intake/Output Intake/Output: Intake & Output 05/08/24 05/09/24 05/10/24 05/11/24 23:59 23:59 23:59 23:59 Intake Total 830 450 518 760 Output Total 500 850 650 250 Balance 330 400 -132 510 Meds/Results Medications: Active Medications Generic Name Dose Route Start Last Admin Trade Name Freq PRN Reason Stop Dose Admin Acetaminophen 650 mg 05/05/24 16:18 Acetaminophen 325 Mg Tablet PO Q4H PRN Mild Pain (1-3) or Fever Albuterol 2 puff 05/06/24 09:00 05/11/24 12:01 Albuterol Sulfate (*Sp) Aerosol 1 Puff INHALATION 2 puff QID TEOFILO Administration Albuterol/Ipratropium 3 ml 05/06/24 11:59 05/10/24 19:46 Ipratropium 0.5 Mg/Albuterol Sulfate 2.5 Mg Ampul.Neb 3 Ml INHALATION 3 ml QIDRT PRN Administration Wheezing Amlodipine Besylate 10 mg 05/06/24 09:00 05/11/24 08:47 Amlodipine Besylate 10 Mg Tablet PO 10 mg DAILY TEOFILO Administration Aripiprazole 30 mg 05/06/24 09:00 05/11/24 08:46 Aripiprazole 10 Mg Tablet PO 30 mg DAILY TEOFILO Administration Aspirin 81 mg 05/06/24 09:00 05/11/24 08:47 Aspirin 81 Mg Chewable Tablet PO 81 mg DAILY TEOFILO Administration Atorvastatin Calcium 40 mg 05/05/24 23:00 05/11/24 00:24 Atorvastatin 40 Mg Tablet PO 40 mg HS TEOFILO Administration Benztropine Mesylate 0.5 mg 05/05/24 22:50 05/11/24 08:47 Benztropine Mesylate 0.5 Mg Tablet PO 0.5 mg Q12HR TOEFILO Administration Carbamazepine 200 mg 05/05/24 22:50 05/11/24 08:47 Carbamazepine 200 Mg Tablet PO 200 mg Q12HR TEOFILO Administration Carvedilol 3.125 mg 05/05/24 22:50 05/11/24 08:48 Carvedilol 3.125 Mg Tablet PO 3.125 mg Q12HR TEOFILO Administration Cefdinir 300 mg 05/08/24 09:00 05/11/24 08:48 Cefdinir 300 Mg Capsule PO 300 mg Q12HR TEOFILO Administration Dextrose 12.5 gm 05/05/24 18:11 Dextrose 50% 25 Gm/50 Ml Syringe IV PUSH PRN PRN Hypoglycemia Protocol Divalproex Sodium 250 mg 05/05/24 23:10 05/11/24 00:24 Divalproex Sodium Er 250 Mg Tab.24h PO 250 mg HS TEOFILO Administration Divalproex Sodium 500 mg 05/05/24 22:50 05/11/24 08:47 Divalproex Sodium Er 500 Mg Tab.24h PO 500 mg Q12HR [facility] Administration Docusate Sodium 100 mg 05/06/24 09:00 05/11/24 08:48 Docusate Sodium 100 Mg Capsule PO 100 mg DAILY TEOFILO Administration Ergocalciferol 50,000 units 05/16/24 09:00 Ergocalciferol 50,000 Units Capsule PO Q30D [facility] Famotidine 20 mg 05/06/24 09:00 05/11/24 08:48 Famotidine 20 Mg Tablet PO 20 mg DAILY TEOFILO Administration Ferrous Sulfate 325 mg 05/12/24 12:00 Ferrous Sulfate [address] PO DAILY@1200 [facility] Fluticasone Propionate 1 puff 05/06/24 09:00 05/11/24 08:03 Fluticasone Prop 110 Mcg Inhaler 12 Gm (*Sp) INHALATION 1 puff BID [facility] Administration Furosemide 40 mg 05/06/24 09:00 05/06/24 08:43 Furosemide 40 Mg Tablet PO 40 mg BID [facility] Administration Gabapentin 400 mg 05/05/24 23:05 05/11/24 12:40 Gabapentin 400 Mg Capsule PO 400 mg TID [facility] Administration Glucagon 1 mg 05/05/24 18:11 Glucagon For Inj 1 Mg Vial IM PRN PRN Hypoglycemia Protocol Glucose 15 gm 05/05/24 18:11 Glucose Oral Gel 15 Gm Of Glucse In 37.5 Gm Tube PO PRN PRN Hypoglycemia Protocol Guaifenesin 600 mg 05/05/24 23:05 05/11/24 08:46 Guaifenesin 12 Hr 600 Mg Tabcr PO 600 mg Q12HR [facility] Administration Haloperidol 5 mg 05/08/24 13:00 05/11/24 12:41 Haloperidol 5 Mg Tablet PO 5 mg TID [facility] Administration Hydralazine HCl 50 mg 05/05/24 23:05 05/11/24 14:14 Hydralazine Hcl 50 Mg Tablet PO 50 mg Q8HR [facility] Administration Dextrose 1,000 mls @ 100 mls/hr 05/05/24 18:11 Dextrose 5% 1,000 Ml IVPB PRN PRN Hypoglycemia Protocol Metronidazole 500 mg in 100 mls @ 100 mls/hr 05/10/24 21:00 05/11/24 15:14 Flagyl 500 Mg/Iso Soln 100 Ml IVPB Infused Q8HR [facility] Infusion Magnesium Oxide 400 mg 05/12/24 12:00 Magnesium Oxide 400 Mg Tablet PO DAILY@1200 [facility] Olanzapine 2.5 mg 05/08/24 21:00 05/11/24 08:47 Olanzapine 2.5 Mg Tablet PO 2.5 mg Q12HR [facility] Administration Oxybutynin Chloride 10 mg 05/06/24 09:00 05/11/24 08:47 Oxybutynin Chloride Xl 5 Mg Tab.Er.24 PO 10 mg DAILY [facility] Administration Polyethylene Glycol 17 gm 05/06/24 09:00 05/11/24 08:46 Polyethylene Glycol 3350 17 Gm Powd.Pack PO 17 gm DAILY [facility]OF[facility] Administration Potassium Chloride 20 meq 05/06/24 09:00 05/11/24 08:47 Potassium Chloride 20 Meq Packet (For Liquid) PO 20 meq DAILY [facility] Administration Sertraline HCl 25 mg 05/06/24 09:00 05/11/24 08:46 Sertraline Hcl 25 Mg Tablet PO 25 mg Q24H [facility] Administration Sertraline HCl 100 mg 05/06/24 09:00 05/11/24 08:46 Sertraline Hcl 50 Mg Tablet PO 100 mg QAM [facility] Administration Spironolactone 25 mg 05/06/24 09:00 05/11/24 08:47 Spironolactone 25 Mg Tablet PO 25 mg DAILY [facility] Administration Trazodone HCl 50 mg 05/05/24 23:05 05/10/24 21:53 Trazodone Hcl 50 Mg Tablet PO Not Given HS [facility]OF[facility] Vitamin B Complex 1 cap 05/06/24 09:00 05/11/24 08:47 Vitamin B Complex Capsule PO 1 cap DAILY TEOF[facility] Administration Radiology Results: ITS Impressions Knee X-Ray 05/05/24 14:41 IMPRESSION: No acute osseous abnormality right knee. Severe osteoarthritic changes. Renal Ultrasound 05/05/24 21:27 IMPRESSION: No hydronephrosis or renal calculi. Chest X-Ray 05/09/24 09:38 IMPRESSION: 1. No acute cardiopulmonary disease. Chest/Abdomen/Pelvis CT 05/09/24 22:39 IMPRESSION: Mild inflammatory stranding at the ketan hepatis with poorly visualized ducts, probably secondary to reactive change and motion artifact, noting that cholangitis could appear similarly. Suggestion of stranding about the pancreatic head, consider acute interstitial pancreatitis and correlate with pancreatic labs. Distal sigmoid and rectal wall thickening, may represent infectious, inflammatory, or ischemic colitis. Mild body wall edema. Mild inflammatory change around a small fat-containing of local hernia, correlate for pain/tenderness. Head CT 05/11/24 06:00 IMPRESSION: 1. No acute intracranial abnormality. Labs Labs: Laboratory Results - last 24 hr 05/10/24 05/11/24 22:50 04:47 WBC 10.7 H RBC 3.36 L Hgb 10.6 L Hct 33.4 L MCV 99.4 MCH 31.5 MCHC 31.7 L RDW 13.9 Plt Count 154 MPV 10.1 Immature Gran % (Auto) 0.6 H Neut % (Auto) 33.8 L Lymph % (Auto) 21.7 [place] % (Auto) 10.7 H Eos % (Auto) 32.8 H Baso % (Auto) 0.4 Lymph # (Auto) 2.33 [place] # (Auto) 1.2 H Eos # (Auto) 3.5 H Baso # (Auto) 0.0 Abs Immat Gran (auto) 0.06 H Absolute Neuts (auto) 3.6 Absolute Nucleated RBC 0.020 H Nucleated RBC % 0.2 Puncture Site Left radial ABG pH 7.382 ABG pCO2 46.7 H ABG pO2 91.8 ABG PO2/FiO2 Ratio 3.28 ABG HCO3 27.1 H ABG O2 Saturation 96.8 ABG O2 Content 14.7 L ABG Base Excess 1.6 A-a Gradient 52.7 Oxyhemoglobin 95.7 Total Hemoglobin 10.8 L O2 Delivery Device Bipap O2 Liters/Min 2.0 FiO2 28 Expiratory Pressure Not Reportable Inspiratory Pressure Not Reportable Sodium 137 Potassium 3.9 Chloride 98 Carbon Dioxide 33 H Anion Gap 6 BUN 15 Creatinine 0.86 Estim Creat Clear Calc 55 Estimated GFR > 60 Glucose 85 Calcium 8.7 Magnesium 2.2 Total Bilirubin 0.2 AST 18 ALT 12 Alkaline Phosphatase 120 Total Protein 6.0 L Albumin 2.8 L
--- NOTE | 2024-05-11 17:46 | P.PNIM_ITS ---
Progress Note: A&P Assessment and Plan (1) VARSHA (acute kidney injury): Code(s): N17.9 - Acute kidney failure, unspecified Status: Acute (2) Urinary tract infection: Qualifiers: Hematuria presence: without hematuria Urinary tract infection type: acute cystitis Qualified Code(s): N30.00 - Acute cystitis without hematuria Code(s): N39.0 - Urinary tract infection, site not specified Status: Acute (3) Type 2 diabetes mellitus: Qualifiers: Diabetes mellitus complication status: without complication Diabetes mellitus fdc insulin use: without fdc use Qualified Code(s): E11.9 - Type 2 diabetes mellitus without complications Code(s): E11.9 - Type 2 diabetes mellitus without complications Status: Chronic (4) Hypertension: Qualifiers: Hypertension type: unspecified Qualified Code(s): I10 - Essential (primary) hypertension Code(s): I10 - Essential (primary) hypertension Status: Chronic (5) Obstructive sleep apnea treated with BiPAP: Code(s): G47.33 - Obstructive sleep apnea (adult) (pediatric) Status: Acute Plan AMS - patient was confused and difficult to arouse last night. ABG noted. CT brain showing nothing acute. She is back to baseline. Follow for now. Weakness - felt related to VARSHA and diverticulitis. PT/OT Hx of UTI - UCx positive on 04/21/24 when in the ED and was treated appropriately. Repeat UCx here negative. VARSHA - creatinine 1.7 on admission. Baseline creatinine 0.5 in 2023. Normal saline for hydration. Creatinine down and back to baseline with IV fluids. Renal ultrasound with no hydronephrosis or renal calculi. IV fluids off now. Lasix remains on hold. Leukocytosis - Started ceftriaxone for possible UTI but UCx negative. Switched to oral cefdinir but WBC worsen. UA improved but with persistent urine WBC. CXR clear. CT ch/abd/pelvis showing wall thickening in the distal sigmoid and rectum with mild chronic inflammatory change. Possible diverticulitis in sigmoid area so WBC improved prior to change in abx. Flagyl added. GI consultation and recommendation noted. Continue with Cefdinir since allergic to PCN. Continue Flagyl but change to oral. Possible pancreatic inflammation - CT showing stranding around the pancreatic head and questionable inflammatory stranding in the ketan hepatitis. Lipase normal. There was motion artifact throughout the abdomen. LFTs are normal. Suspect this is artifact and not a true finding. History of seizures - stable Asthma/COPD overlap with Obesity hypoventilation syndrome - stable on RA. NIGEL on BiPAP - Has pulmonary HTN as well. Continue to encourage compliance with BiPAP. Chronic diastolic CHF - clinically euvolemic. History of schizophrenia - mood stable. Continue home meds. DVT prophylaxis SCDs Code status full code Subjective Date/time seen: 05/11/24 17:46 Interval history: 73yo female with seizures, pulmonary hypertension, CHF, NIGEL on BiPAP, chronic respiratory failure, asthma/COPD overlap, obesity with hypoventilation syndrome, GERD, diet-controlled diabetes, CVA, and schizophrenia here for weakness. Assuming care. Chart reviewed. She was difficult to arouse last night and so ABG was performed as well as a CT of the head. She feels okay today. Eating normally. No abdominal pain. Asked about the event she states that she was ?out of it?. No chest pain or jaw pain. No feeling of lip or tongue swelling. She is alert but confused. Exam Narrative: AF 98.7 155/74 78 16 94% 2L Gen - NARD HEENT - lips are enlarged but tongue normal in size (Per RN, no change in size of lips) Chest - CTA bilaterally, nml RR CV - RRR S1/S2 Abd - Soft, NT/ND, Positive BS Ext - No pedal edema Neuro - Alert but confused Psych - Nml mood and affect Skin - Warm and dry Objective Data Vital Signs Vital Signs: Vital Signs - 24 hr 05/10/24 19:35 05/10/24 19:46 05/10/24 19:46 Temperature 98.5 F Pulse Rate 78 75 74 Respiratory Rate 16 22 H 16 Blood Pressure 120/53 L Pulse Oximetry 96 96 97 Oxygen Delivery Autopap Nasal Cannula Oxygen Flow Rate 2 05/10/24 19:46 05/10/24 20:00 05/11/24 02:11 Temperature Pulse Rate 74 Respiratory Rate 16 10 L Blood Pressure Pulse Oximetry 97 Oxygen Delivery Nasal Cannula Autopap Oxygen Flow Rate 2 05/11/24 04:22 05/11/24 08:07 05/11/24 08:48 Temperature 98.2 F Pulse Rate 71 72 Respiratory Rate 18 Blood Pressure 152/85 H Pulse Oximetry 97 96 Oxygen Delivery Nasal Cannula Oxygen Flow Rate 2 05/11/24 08:48 05/11/24 14:00 Temperature 98.7 F Pulse Rate 78 Respiratory Rate 18 16 Blood Pressure 155/74 H Pulse Oximetry 96 94 Oxygen Delivery Nasal Cannula Oxygen Flow Rate 2 Intake/Output Intake/Output: Intake & Output 05/08/24 05/09/24 05/10/24 05/11/24 23:59 23:59 23:59 23:59 Intake Total 830 406 712 7849 Output Total 500 195 730 0741 Balance 230 -671 -551 -519 Meds/Results Medications: Active Medications Generic Name Dose Route Start Last Admin Trade Name Freq PRN Reason Stop Dose Admin Acetaminophen 650 mg 05/05/24 16:18 Acetaminophen 325 Mg Tablet PO Q4H PRN Mild Pain (1-3) or Fever Albuterol 2 puff 05/06/24 09:00 05/11/24 12:01 Albuterol Sulfate (*Sp) Aerosol 1 Puff INHALATION 2 puff QID TEOFILO Administration Albuterol/Ipratropium 3 ml 05/06/24 11:59 05/10/24 19:46 Ipratropium 0.5 Mg/Albuterol Sulfate 2.5 Mg Ampul.Neb 3 Ml INHALATION 3 ml QIDRT PRN Administration Wheezing Amlodipine Besylate 10 mg 05/06/24 09:00 05/11/24 08:47 Amlodipine Besylate 10 Mg Tablet PO 10 mg DAILY TEOFILO Administration Aripiprazole 30 mg 05/06/24 09:00 05/11/24 08:46 Aripiprazole 10 Mg Tablet PO 30 mg DAILY TEOFILO Administration Aspirin 81 mg 05/06/24 09:00 05/11/24 08:47 Aspirin 81 Mg Chewable Tablet PO 81 mg DAILY TEOFILO Administration Atorvastatin Calcium 40 mg 05/05/24 23:00 05/11/24 00:24 Atorvastatin 40 Mg Tablet PO 40 mg HS TEOFILO Administration Benztropine Mesylate 0.5 mg 05/05/24 22:50 05/11/24 08:47 Benztropine Mesylate 0.5 Mg Tablet PO 0.5 mg Q12HR TEOFILO Administration Carbamazepine 200 mg 05/05/24 22:50 05/11/24 08:47 Carbamazepine 200 Mg Tablet PO 200 mg Q12HR TEOFILO Administration Carvedilol 3.125 mg 05/05/24 22:50 05/11/24 08:48 Carvedilol 3.125 Mg Tablet PO 3.125 mg Q12HR TEOFILO Administration Cefdinir 300 mg 05/08/24 09:00 05/11/24 08:48 Cefdinir 300 Mg Capsule PO 300 mg Q12HR TEOFILO Administration Dextrose 12.5 gm 05/05/24 18:11 Dextrose 50% 25 Gm/50 Ml Syringe IV PUSH PRN PRN Hypoglycemia Protocol Divalproex Sodium 250 mg 05/05/24 23:10 05/11/24 00:24 Divalproex Sodium Er 250 Mg Tab.24h PO 250 mg HS TEOFILO Administration Divalproex Sodium 500 mg 05/05/24 22:50 05/11/24 08:47 Divalproex Sodium Er 500 Mg Tab.24h PO 500 mg Q12HR TEOFILO Administration Docusate Sodium 100 mg 05/06/24 09:00 05/11/24 08:48 Docusate Sodium 100 Mg Capsule PO 100 mg DAILY TEOFILO Administration Ergocalciferol 50,000 units 05/16/24 09:00 Ergocalciferol 50,000 Units Capsule PO Q30D TEOFILO Famotidine 20 mg 05/06/24 09:00 05/11/24 08:48 Famotidine 20 Mg Tablet PO 20 mg DAILY TEOFILO Administration Ferrous Sulfate 325 mg 05/12/24 12:00 Ferrous Sulfate [address] PO DAILY@1200 [facility] Fluticasone Propionate 1 puff 05/06/24 09:00 05/11/24 08:03 Fluticasone Prop 110 Mcg Inhaler 12 Gm (*Sp) INHALATION 1 puff BID TEOFILO Administration Furosemide 40 mg 05/06/24 09:00 05/06/24 08:43 Furosemide 40 Mg Tablet PO 40 mg BID TEOFILO Administration Gabapentin 400 mg 05/05/24 23:05 05/11/24 17:07 Gabapentin 400 Mg Capsule PO 400 mg TID TEOFILO Administration Glucagon 1 mg 05/05/24 18:11 Glucagon For Inj 1 Mg Vial IM PRN PRN Hypoglycemia Protocol Glucose 15 gm 05/05/24 18:11 Glucose Oral Gel 15 Gm Of Glucse In 37.5 Gm Tube PO PRN PRN Hypoglycemia Protocol Guaifenesin 600 mg 05/05/24 23:05 05/11/24 08:46 Guaifenesin 12 Hr 600 Mg Tabcr PO 600 mg Q12HR TEOFILO Administration Haloperidol 5 mg 05/08/24 13:00 05/11/24 17:07 Haloperidol 5 Mg Tablet PO 5 mg TID TEOFILO Administration Hydralazine HCl 50 mg 05/05/24 23:05 05/11/24 14:14 Hydralazine Hcl 50 Mg Tablet PO 50 mg Q8HR TEOFILO Administration Dextrose 1,000 mls @ 100 mls/hr 05/05/24 18:11 Dextrose 5% 1,000 Ml IVPB PRN PRN Hypoglycemia Protocol Metronidazole 500 mg in 100 mls @ 100 mls/hr 05/10/24 21:00 05/11/24 15:14 Flagyl 500 Mg/Iso Soln 100 Ml IVPB Infused Q8HR TEOFILO Infusion Magnesium Oxide 400 mg 05/12/24 12:00 Magnesium Oxide 400 Mg Tablet PO DAILY@1200 TEOFILO Olanzapine 2.5 mg 05/08/24 21:00 05/11/24 08:47 Olanzapine 2.5 Mg Tablet PO 2.5 mg Q12HR TEOFILO Administration Oxybutynin Chloride 10 mg 05/06/24 09:00 05/11/24 08:47 Oxybutynin Chloride Xl 5 Mg Tab.Er.24 PO 10 mg DAILY TEOFILO Administration Polyethylene Glycol 17 gm 05/06/24 09:00 05/11/24 08:46 Polyethylene Glycol 3350 17 Gm Powd.Pack PO 17 gm DAILY TEOFILO Administration Potassium Chloride 20 meq 05/06/24 09:00 05/11/24 08:47 Potassium Chloride 20 Meq Packet (For Liquid) PO 20 meq DAILY TEOFILO Administration Sertraline HCl 25 mg 05/06/24 09:00 05/11/24 08:46 Sertraline Hcl 25 Mg Tablet PO 25 mg Q24H TEOFILO Administration Sertraline HCl 100 mg 05/06/24 09:00 05/11/24 08:46 Sertraline Hcl 50 Mg Tablet PO 100 mg QAM TEOFILO Administration Spironolactone 25 mg 05/06/24 09:00 05/11/24 08:47 Spironolactone 25 Mg Tablet PO 25 mg DAILY TEOFILO Administration Trazodone HCl 50 mg 05/05/24 23:05 05/10/24 21:53 Trazodone Hcl 50 Mg Tablet PO Not Given HS TEOFILO Vitamin B Complex 1 cap 05/06/24 09:00 05/11/24 08:47 Vitamin B Complex Capsule PO 1 cap DAILY TEOFILO Administration Radiology Results: ITS Impressions Knee X-Ray 05/05/24 14:41 IMPRESSION: No acute osseous abnormality right knee. Severe osteoarthritic changes. Renal Ultrasound 05/05/24 21:27 IMPRESSION: No hydronephrosis or renal calculi. Chest X-Ray 05/09/24 09:38 IMPRESSION: 1. No acute cardiopulmonary disease. Chest/Abdomen/Pelvis CT 05/09/24 22:39 IMPRESSION: Mild inflammatory stranding at the ketan hepatis with poorly visualized ducts, probably secondary to reactive change and motion artifact, noting that cholangitis could appear similarly. Suggestion of stranding about the pancreatic head, consider acute interstitial pancreatitis and correlate with pancreatic labs. Distal sigmoid and rectal wall thickening, may represent infectious, inflammatory, or ischemic colitis. Mild body wall edema. Mild inflammatory change around a small fat-containing of local hernia, correlate for pain/tenderness. Head CT 05/11/24 06:00 IMPRESSION: 1. No acute intracranial abnormality. Labs Labs: Laboratory Results - last 24 hr 05/10/24 05/11/24 22:50 04:47 WBC 10.7 H RBC 3.36 L Hgb 10.6 L Hct 33.4 L MCV 99.4 MCH 31.5 MCHC 31.7 L RDW 13.9 Plt Count 154 MPV 10.1 Immature Gran % (Auto) 0.6 H Neut % (Auto) 33.8 L Lymph % (Auto) 21.7 [place] % (Auto) 10.7 H Eos % (Auto) 32.8 H Baso % (Auto) 0.4 Lymph # (Auto) 2.33 [place] # (Auto) 1.2 H Eos # (Auto) 3.5 H Baso # (Auto) 0.0 Abs Immat Gran (auto) 0.06 H Absolute Neuts (auto) 3.6 Absolute Nucleated RBC 0.020 H Nucleated RBC % 0.2 Puncture Site Left radial ABG pH 7.382 ABG pCO2 46.7 H ABG pO2 91.8 ABG PO2/FiO2 Ratio 3.28 ABG HCO3 27.1 H ABG O2 Saturation 96.8 ABG O2 Content 14.7 L ABG Base Excess 1.6 A-a Gradient 52.7 Oxyhemoglobin 95.7 Total Hemoglobin 10.8 L O2 Delivery Device Bipap O2 Liters/Min 2.0 FiO2 28 Expiratory Pressure Not Reportable Inspiratory Pressure Not Reportable Sodium 137 Potassium 3.9 Chloride 98 Carbon Dioxide 33 H Anion Gap 6 BUN 15 Creatinine 0.86 Estim Creat Clear Calc 55 Estimated GFR > 60 Glucose 85 Calcium 8.7 Magnesium 2.2 Total Bilirubin 0.2 AST 18 ALT 12 Alkaline Phosphatase 120 Total Protein 6.0 L Albumin 2.8 L
[2024-05-12] VITALS (7 sets, daily range): BP systolic 163–185; BP diastolic 79–83; PULSE 70–83; RESP 18–20; TEMP 36.7–37.3; O2SAT 94–96
[2024-05-12] MEDS: hydrALAZINE HCL 50 MG TABLET PO ×3 (05:02→20:26)
[2024-05-12 05:03] LABS: Basophils Absolute Auto 0.1 K/mm3 (0.0-0.1); Basophils Percent Auto 0.6 % (0.2-1.2); Eosinophils Absolute Auto 4.6 K/mm3 (0-0.3); Eosinophils Percent Auto 33.8 % (0-4.4); Hematocrit 32.4 % (37.0-47.0); Hemoglobin 10.6 g/dL (12.0-15.0); Immature Granulocyte Absolute 0.09 K/mm3 (0.00-0.031); Immature Granulocyte Percent A 0.7 % (0-0.5); Lymphocytes Absolute Auto 3.14 K/mm3 (0.9-3.2); Lymphocytes Percent Auto 23.2 % (18.3-44.2); Mean Corpuscular HGB Conc 32.7 g/dl (32-36); Mean Corpuscular Volume 97.9 fl (80-100); Mean Platelet Volume 9.9 fl (7.4-10.4); Monocytes Absolute Auto 1.2 K/mm3 (0.1-0.6); Monocytes Percent Auto 8.9 % (2.6-8.5); Neutrophils Absolute Auto 4.5 K/mm3 (1.3-6.7); Neutrophils Percent Auto 32.8 % (45.5-73.1); Nucleated Red Blood Cells Perc 0.1 % (0.0-0.2); Platelet Count Result 169 k/mm3 (150-375); Red Blood Count 3.31 M/mm3 (4.2-5.4); Red Cell Distribution Width 13.7 % (11.5-14.5); White Blood Count 13.6 K/mm3 (4.5-10.0)
[2024-05-12 05:17] LABS: Albumin Level 3.3 g/dL (3.5-5.1); Anion Gap 3 mmol/L (4-12); Blood Urea Nitrogen 8 mg/dL (7-17); Calcium 9.1 mg/dL (8.4-10.2); Carbon Dioxide 34 mmol/L (22-30); Chloride 99 mmol/L (98-107); Estimated CRCL calculation 67 ml/min; Estimated Glomerular Filt Rate > 60; Glucose 81 mg/dL (65-110); Magnesium 2.1 mg/dL (1.6-2.3); Phosphorus 3.1 mg/dL (2.5-4.5); Potassium 3.8 mmol/L (3.4-5.0); Sodium 136 mmol/L (137-145)
[2024-05-12] MEDS: metroNIDAZOLE 500 MG/ISO 100ML 500 MG/100 ML BAG 100 MG IVPB (05:48)
[2024-05-12] MEDS: FLUTICASONE PROP 110 MCG INHALER 12 GM (*SP) 1 PUFF INHALATION (08:23)
[2024-05-12] MEDS: ALBUTEROL SULFATE (*SP) AEROSOL 1 PUFF 2 PUFF INHALATION ×2 (08:23→14:45)
[2024-05-12] MEDS: ARIPiprazole 10 MG TABLET 30 MG PO (09:13)
[2024-05-12] MEDS: SERTRALINE HCL 50 MG TABLET 100 MG PO (09:13)
[2024-05-12] MEDS: carBAMazepine 200 MG TABLET PO ×2 (09:14→20:27)
[2024-05-12] MEDS: BENZTROPINE MESYLATE 0.5 MG TABLET PO ×2 (09:14→20:26)
[2024-05-12] MEDS: FERROUS SULFATE 325 MG TABLET DR PO (09:14)
[2024-05-12] MEDS: amLODIPine BESYLATE 10 MG TABLET PO (09:14)
[2024-05-12] MEDS: SERTRALINE HCL 25 MG TABLET PO (09:14)
[2024-05-12] MEDS: SPIRONOLACTONE 25 MG TABLET PO (09:14)
[2024-05-12] MEDS: HALOPERIDOL 5 MG TABLET PO ×3 (09:14→16:50)
[2024-05-12] MEDS: oxyBUTYnin CHLORIDE XL 5 MG TAB.ER.24 10 MG PO (09:14)
[2024-05-12] MEDS: ASPIRIN 81 MG CHEWABLE TABLET PO (09:14)
[2024-05-12] MEDS: VITAMIN B COMPLEX CAPSULE 1 CAP PO (09:15)
[2024-05-12] MEDS: DIVALPROEX SODIUM ER 500 MG TAB.24H PO ×2 (09:15→20:26)
[2024-05-12] MEDS: OLANZapine 2.5 MG TABLET PO ×2 (09:15→20:27)
[2024-05-12] MEDS: MAGNESIUM OXIDE 400 MG TABLET PO (09:15)
[2024-05-12] MEDS: guaiFENesin 12 HR 600 MG TABCR PO ×2 (09:15→20:27)
[2024-05-12] MEDS: FAMOTIDINE 20 MG TABLET PO (09:15)
[2024-05-12] MEDS: carvediloL 3.125 MG TABLET PO ×2 (09:15→20:27)
[2024-05-12] MEDS: POTASSIUM CHLORIDE 20 MEQ PACKET (FOR LIQUID) PO (09:16)
[2024-05-12] MEDS: GABAPENTIN 400 MG CAPSULE PO ×3 (09:17→16:50)
[2024-05-12] MEDS: FUROSEMIDE 40 MG TABLET PO (09:21)
[2024-05-12] MEDS: metroNIDAZOLE 500 MG TABLET PO ×2 (13:18→20:28)
--- NOTE | 2024-05-12 14:31 | P.DS_ITS ---
DS: Admitting Diagnosis Discharge Date 05/12/24 Admitting Diagnosis Weakness, Poor Appetite DS: Discharge Diagnosis Discharge Diagnosis (1) VARSHA (acute kidney injury): Code(s): N17.9 - Acute kidney failure, unspecified Status: Acute (2) Diverticulitis: Code(s): K57.92 - Diverticulitis of intestine, part unspecified, without perforation or abscess without bleeding Status: Acute (3) Eosinophilia: Code(s): D72.10 - Eosinophilia, unspecified Status: Acute (4) Type 2 diabetes mellitus: Qualifiers: Diabetes mellitus correction insulin use: without correction use Diabetes mellitus complication status: without complication Qualified Code(s): E11.9 - Type 2 diabetes mellitus without complications Code(s): E11.9 - Type 2 diabetes mellitus without complications Status: Chronic (5) Hypertension: Qualifiers: Hypertension type: unspecified Qualified Code(s): I10 - Essential (primary) hypertension Code(s): I10 - Essential (primary) hypertension Status: Chronic (6) Obstructive sleep apnea treated with BiPAP: Code(s): G47.33 - Obstructive sleep apnea (adult) (pediatric) Status: Acute (7) Schizophrenia: Qualifiers: Schizophrenia type: unspecified Qualified Code(s): F20.9 - Schizophrenia, unspecified Code(s): F20.9 - Schizophrenia, unspecified Status: Chronic (8) Diastolic congestive heart failure: Code(s): I50.30 - Unspecified diastolic (congestive) heart failure Status: Acute (9) Polypharmacy: Code(s): Z79.899 - Other intermediate teacher (current) drug therapy Status: Acute DS: Summary Hospital Course Reason for hospitalization: 73yo female with seizures, pulmonary hypertension, CHF, NIGEL on BiPAP, chronic re spiratory failure, asthma/COPD overlap, obesity with hypoventilation syndrome, GERD, diet-controlled diabetes, CVA, and schizophrenia here for weakness. Please see H&P for details. Hospital Course: Patient presents with weakness. UCx was positive in ED visit 04/21/24 and treated with cephalexin for 7 days. UA noted here with persistent leukouria and was started on Rocephin in the ED. Creatinine 1.7 on admission. Baseline creatinine 0.5 in 2023. Started on IV fluids. Lasix held. Creatinine improved and back to baseline with IV fluids. Renal ultrasound with no hydronephrosis or renal calculi. IV fluids stopped. Switched to oral cefdinir but WBC worsen. UA improved but with persistent urine WBC. CXR clear. CT ch/abd/pelvis showing wall thickening in the distal sigmoid and rectum with mild chronic inflammatory change. Possible diverticulitis in sigmoid area. WBC improved prior to change in abx with adding Flagyl. GI consultation and recommendation noted. Patient had low grade eosinophilia (800 cells) on admission but worsened (4600). She has an allergy to PCN so felt this was related to a reaction to cephalosporins (cephalexin prior to admission, Rocephin on admission then cefdinir) although patient remained asymptomatic from this. WBC worsened felt related to drug reaction then from poorly treated infection. Cefdinir stopped. No Cipro since can interact with her home medications. Discussed with GI who recommended Bactrim and flagyl for 1 more week. Repeat UCx here negative. Weakness felt related to VARSHA and diverticulitis. PT/OT ordered. CT showing stranding around the pancreatic head and questionable inflammatory stranding in the ketan hepatitis. Lipase normal. There was motion artifact throughout the abdomen. LFTs are normal. Suspect this is artifact and not a true finding. Patient was confused and difficult to arouse the other night. ABG okay. CT brain showing nothing acute. She returned to her baseline. She was encouraged to use her BiPAP. She is at risk for polypharmacy. She overall did well and was able to be discharged on 05/12/24. Status at Discharge Cognitive/behavioral status at discharge: stable Time Spent with Patient Time attestation: Total time spent providing and/or coordinating discharge services: 35 minutes Time spent: Greater than 30 minutes Exam Narrative: AF 98.1 185/79 71 20 94% ra Gen - NARD Chest - lungs clear anteriorly, nml RR CV - RRR S1/S2 Abd - Soft, NT/ND, Positive BS Ext - No pedal edema Psych - Nml mood and affect Skin - Warm and dry DS: Data Data Completed and Pending Labs on day of discharge: Labs from last 24 hours 05/12/24 04:50 WBC 13.6 H RBC 3.31 L Hgb 10.6 L Hct 32.4 L MCV 97.9 MCH 32.0 MCHC 32.7 RDW 13.7 Plt Count 169 MPV 9.9 Immature Gran % (Auto) 0.7 H Neut % (Auto) 32.8 L Lymph % (Auto) 23.2 [place] % (Auto) 8.9 H Eos % (Auto) 33.8 H Baso % (Auto) 0.6 Lymph # (Auto) 3.14 [place] # (Auto) 1.2 H Eos # (Auto) 4.6 H Baso # (Auto) 0.1 Abs Immat Gran (auto) 0.09 H Absolute Neuts (auto) 4.5 Absolute Nucleated RBC 0.020 H Nucleated RBC % 0.1 Sodium 136 L Potassium 3.8 Chloride 99 Carbon Dioxide 34 H Anion Gap 3 L BUN 8 D Creatinine 0.69 L Estim Creat Clear Calc 67 Estimated GFR > 60 Glucose 81 Calcium 9.1 Phosphorus 3.1 Magnesium 2.1 Albumin 3.3 L Discharge Plan Discharge Attending physician on discharge: Jon Mackay Discharging Clinician: Jon Mackay Anticipated Discharge Date/Time: 05/12/24 14:48 Patient Disposition: [facility] Activity: as tolerated Diet: heart healthy Discharge Instructions: Encourage BiPAP use at night, with naps and able to use as needed. Check blood pressure 1 to 2 times a day. Record for the doctor's review. Take precautions to avoid falls. Patient at risk for poly-pharmacy. Please have primary provider review medication list to see if this is still appropriate. Rise slowly from a lying or sitting position. Pause before standing or walking. Check daily morning weights after voiding. Call the doctor if the patient gains more than 3 lb in 2 days or 5 lb in 1 week. Contact the doctor if the patient has fevers or other worrisome symptoms. Avoid NSAIDs (ibuprofen, naproxen, Aleve). Tylenol is safe to take. Follow-up with the provider at the facility. Follow-up with Dr Hicks in 1 month. Please call for an appointment. Thank you for using [facility] for your health care needs. Patient Instructions: Antibiotic Form, Heart Failure (DC) Patient Language: [place]an Stand Alone Forms: General Discharge Information Follow-up/Referrals: Deangelo Hicks MD [Physician] - Call for Appointment UNKNOWN,DOCTOR [Primary Care Provider] - Discharge Medications: New sulfamethoxazole-trimethoprim [Bactrim DS] 800-160 mg tablet 1 tablet PO Q12H Qty: 15 0RF metronidazole 500 mg Tablet 500 mg PO Q8HR Qty: 22 0RF Continued ipratropium-albuterol 0.5 mg-3 mg(2.5 mg base)/3 mL solution for nebulization 3 ml inhalation QID Qty: 180 6RF polyethylene glycol 3350 17 gram Powder In Packet 17 g PO DAILY fluticasone propionate [Flovent HFA] 110 mcg/actuation HFA aerosol inhaler 1 puff INHALATION BID amlodipine 5 mg tablet 10 mg PO DAILY olanzapine 2.5 mg tablet 2.5 mg PO Q12H acetaminophen 500 mg Tablet 1,000 mg PO TID PRN (Reason: pain) divalproex 500 mg tablet extended release 24 hr 500 mg PO Q12H docusate sodium 100 mg capsule 100 mg PO DAILY sertraline 25 mg tablet 25 mg PO Q24H Rx Instructions: TO TOTAL 125 vitamin B complex [B Complex-Vitamin B12] Tablet 1 tablet PO DAILY hydralazine 50 mg tablet 50 mg PO TID albuterol sulfate 90 mcg/actuation HFA aerosol inhaler 2 puff INHALATION QID sertraline 50 mg tablet 100 mg PO Q24H oxybutynin chloride 10 mg tablet extended release 24hr 10 mg PO DAILY furosemide 40 mg tablet 40 mg PO BID benztropine 0.5 mg tablet 0.5 mg PO Q12H carbamazepine 200 mg tablet 200 mg PO Q12H haloperidol 5 mg Tablet 5 mg PO TID carvedilol 3.125 mg Tablet 3.125 mg PO Q12H atorvastatin 20 mg tablet 40 mg PO HS gabapentin 400 mg Capsule 400 mg PO TID famotidine 20 mg tablet 20 mg PO DAILY ferrous sulfate 325 mg (65 mg iron) tablet 325 mg PO DAILY ergocalciferol (vitamin D2) 1,250 mcg (50,000 unit) capsule 1,250 mcg PO MONTHLY Rx Instructions: 31st of every month aripiprazole 30 mg tablet 30 mg PO DAILY aspirin 81 mg Tablet 81 mg PO DAILY guaifenesin [Mucus Relief ER] 600 mg Tablet Extended Release 12hr 600 mg PO Q12HR Qty: 30 0RF magnesium oxide 400 mg (241.3 mg magnesium) Tablet 400 mg PO QAM Qty: 30 0RF Changed divalproex 250 mg tablet extended release 24 hr 250 mg PO HS Qty: 30 0RF Rx Instructions: Take 250 mg PO HS, in addition to 500 mg PO HS - to equal 750 mg HS Held spironolactone 25 mg tablet 25 mg PO DAILY Hold Instructions: HOLD - resume once Bactrim is completed. trazodone 50 mg Tablet 50 mg PO HS Hold Instructions: hold - resume if okay with her provider potassium chloride 20 mEq packet 20 meq PO DAILY Qty: 30 0RF Hold Instructions: HOLD - resume once Bactrim is completed. Other Ambulatory Orders: Complete Blood Count with Diff (Routine) Timeframe: 20240523 Location: Determined by Patient Ordered By: Jon Mackay Comprehensive Metabolic Panel (Routine) Timeframe: 20240523 Location: Determined by Patient Ordered By: Jon Mackay Date of admission: 05/06/24 15:56 Primary Care Provider: UNKNOWN,DOCTOR Admitting Provider: Juvencio Pena Attending physician on admission: Juvencio Pena Condition: Stable Hospitalist MIPS Heart Failure (Exclusion) Patient has history of Heart Transplant or Left Ventricular Assistive Device?: No IF YES, STOP HERE Heart Failure (Qualifier) Patient has current or prior documentation of LVEF less than or equal to 40%, or mod/servere depressed LVSF?: No IF NO, STOP HERE
[2024-05-12 15:59] LABS: SARS-CoV-2 RNA PCR Negative (Negative)
[2024-05-12] MEDS: ATORVASTATIN 40 MG TABLET PO (20:26)
[2024-05-12] MEDS: DIVALPROEX SODIUM ER 250 MG TAB.24H PO (20:27)
== END 2024-05-12 22:15 | DRG 469 ==
LOC: ANHED 15:22 → ANH2MED 17:53
PROVIDERS: Internal Medicine; Student in an Organized Health Care Education/Training Program; Admitting Provider Internal Medicine; Emergency Provider Emergency Medicine; Visit Provider Internal Medicine
DX: N17.9 Acute kidney failure, unspecified (principal); E66.2 Morbid (severe) obesity with alveolar hypoventilation; K21.9 Gastro-esophageal reflux disease without esophagitis; I11.0 Hypertensive heart disease with heart failure; I50.32 Chronic diastolic (congestive) heart failure; K57.32 Diverticulitis of large intestine without perforation or abscess without bleeding; J96.10 Chronic respiratory failure, unspecified whether with hypoxia or hypercapnia; F20.9 Schizophrenia, unspecified; J44.9 Chronic obstructive pulmonary disease, unspecified; G40.909 Epilepsy, unspecified, not intractable, without status epilepticus; E11.9 Type 2 diabetes mellitus without complications; D72.829 Elevated white blood cell count, unspecified; M17.11 Unilateral primary osteoarthritis, right knee; Z20.822 Contact with and (suspected) exposure to COVID-19; Z68.30 Body mass index [BMI] 30.0-30.9, adult; Z86.73 Personal history of transient ischemic attack (TIA), and cerebral infarction without residual deficits; Z79.899 Other long term (current) drug therapy; Z86.718 Personal history of other venous thrombosis and embolism; Z90.49 Acquired absence of other specified parts of digestive tract; Z96.642 Presence of left artificial hip joint
CPT/HCPCS: 36415; 36600; 70450; 71045; 71250; 73562; 74176; 76775; 80048; 80053; 80069; 81001; 82550; 82570; 82805; 82948; 83605; 83690; 83735; 84156; 84300; 84443; 84484; 84540; 85018; 85025; 85055; 85610; 85730; 86140; 87040; 87086; 87635; 87637; 93005; 94640; 96361; 96365; 97163; 97165; 97530; 97535; 99285; A9270; G0378; G0379; J0696; J1836; J7030

== ENCOUNTER 2025-01-10 13:20 | Outpatient (CLI) | payer OTHER, SELFPAY ==
--- NOTE | ~2025-01-10 | US_ITS ---
EXAMINATION: US venous doppler [facility] DATE: 01/10/2025 14:23 INDICATION: Bilateral lower extremity swelling. TECHNIQUE: Grayscale ultrasound images without and with compression and Doppler ultrasound images of the bilateral lower extremity veins were obtained. COMPARISON: None. FINDINGS: No evidence of DVT is noted in the common femoral, profunda femoral and popliteal veins of both lower extremities. Noncompressible deep vein in the right calf, involving the peroneal vein suspicious of thrombus. Visualization of calf veins on the left side is limited. IMPRESSION: 1. No proximal deep vein thrombosis at the femoral and popliteal levels on both sides. 2. Suspect thrombus of the peroneal vein in the right calf. A repeat venous Doppler study is recommended after one week to rule out extension of the thrombus into the proximal veins. Reviewed, dictated and finalized at location [facility] IMPRESSION: 1. No proximal deep vein thrombosis at the femoral and popliteal levels on bot h sides. 2. Suspect thrombus of the peroneal vein in the right calf. A repeat venous Dop pler study is recommended after one week to rule out extension of the thrombus into the proximal veins.
--- OUTSIDE RECORDS SUMMARY | 2025-01-10 15:00 | XMS_ITS | Clinical Summary ---
[facility] Address [address] [place] [address] Care Team Providers Care Cash Specialist Name Role Phone Unavailable Primary Care Provider [...] Encounters Date Type Department Care Team Description 12/07/2024 External Device Data [facility] ABSTRACTION Provider, Abstract 12/06/2024 External Device Data [facility] ABSTRACTION Provider, Abstract 11/08/2024 External Device Data [facility] ABSTRACTION Provider, Abstract 11/01/2024 External Device Data [facility] ABSTRACTION Provider, Abstract 10/25/2024 External Device Data ST[facility] ABSTRACTION Provider, Abstract [...] Sign Reading Time Taken Comments Blood Pressure 121/78 07/21/2024 10:19 AM CDT Pulse 69 07/21/2024 10:19 AM CDT Temperature 36.2 C (97.2 F) 07/21/2024 10:19 AM CDT Respiratory Rate 15 07/21/2024 10:19 AM CDT Oxygen Saturation 99% 07/21/2024 10:19 AM CDT Inhaled Oxygen Concentration - - Weight 81.6 kg (180 lb) 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 [employer] Height 154.9 cm (5' 1) 11/21/2021 11:32 AM CDT Body Mass Index 34.01 11/21/2021 11:32 AM CDT Plan of Treatment Upcoming Encounters Date Type Department Care Team (Late st Contact Info) Description 01/25/2025 10:00 AM [employer] Office Visit [facility] Oncology and Hematology - [address] [place] [id number] Carrington Matta MD [address] [facility] [facility] [address] [place] [address] Health Maintenance Due Date Last [...] CANCER SCREENING 09/04/2022 09/04/2021 INFLUENZA VACCINE (#1) 2024 11/25/2014 COVID-19 Vaccine (2 - season) 2024 RSV VACCINE (60+ or ) (1 - [...] Most Recently Relevant to Health Maintenance [place] [address] [address] [place] [address] PLAN MEDICAID
--- OUTSIDE RECORDS SUMMARY | 2025-01-10 15:01 | XMS_ITS | Encounter Summary ---
Author Organization [facility] Address [address] [place] [address] [place] [address] Care Team Providers Care Feed Mixer Helper Name Role Phone Missael Boyce MD Primary Care Provider [phone] Encounter Details Date Type Department Care Team (Late st Contact Info) Description 10/15/2024 Lab Requisition [facility] [address] [place] [address] Unknown, Provider Social History Tobacco Use Types Packs/Day Years Used Date Smoking Tobacco: Never Assessed Comments Unknown Sex and Gender Information Value Date Recorded Sex Assigned at Not on file Legal Sex Female 8:21 PM CDT Gender Identity Not on file Sexual Orientation Not on file documented as of this encounter Plan of Treatment Not on file documented as of this encounter Procedures Procedure Name Priority Date/Time Associated Diagnosis Comments CBC W AUTO DIFFERENTIAL STAT 10/15/2024 1:35 PM CDT documented in this encounter Results * (ABNORMAL) CBC WITH DIFFERENTIAL (10/15/2024 1:35 PM CDT) WBC 4.9 4.0 - 10.7 x10E9/L 10/15/2024 2:43 PM CDT [facility] RBC Count 3.30(L) 3.90 - 5.20 x10E12/L 10/15/2024 2:43 PM CDT [facility] Hemoglobin 10.6(L) 11.9 - 15.8 g/dL 10/15/2024 2:43 PM CDT [facility] Hematocrit 31.7(L) 34.8 - 46.1 % 10/15/2024 2:43 PM CDT [facility] MCV 96.1 80.0 - 98.0 fL 10/15/2024 2:43 PM CDT [facility] MCH 32.1 26.7 - 33.6 pg 10/15/2024 2:43 PM CDT [facility] MCHC 33.4 31.7 - 36.3 g/dL 10/15/2024 2:43 PM CDT [facility] RDW-CV 13.3 11.3 - 14.8 % 10/15/2024 2:43 PM CDT [facility] Platelet Count 241 150 - 420 x10E9/L 10/15/2024 2:43 PM CDT [facility] MPV 10.8 7.8 - 11.4 fL 10/15/2024 2:43 PM CDT [facility] Neutrophil % 52.4 41.0 - 74.0 % 10/15/2024 2:43 PM CDT [facility] Lymphocyte % 31.8 17.0 - 47.0 % 10/15/2024 2:43 PM CDT [facility] Monocyte % 12.6(H) 3.0 - 11.0 % 10/15/2024 2:43 PM CDT [facility] Eosinophil % 1.8 0.0 - 7.0 % 10/15/2024 2:43 PM CDT [facility] Basophil % 1.0 0.0 - 1.6 % 10/15/2024 2:43 PM CDT [facility] Immature Granulocytes % 0.4 0.0 - 1.0 % 10/15/2024 2:43 PM CDT [facility] Neutrophil Absolute 2.57 1.60 - 7.50 x10E9/L 10/15/2024 2:43 PM CDT [facility] Lymphocyte Absolute 1.56 1.00 - 4.40 x10E9/L 10/15/2024 2:43 PM CDT [facility] Monocyte Absolute 0.62 0.15 - 1.00 x10E9/L 10/15/2024 2:43 PM CDT [facility] Eosinophil Absolute 0.09 0.00 - 0.60 x10E9/L 10/15/2024 2:43 PM CDT [facility] Basophil Absolute 0.05 0.00 - 0.13 x10E9/L 10/15/2024 2:43 [facility] Blood BLOOD SPECIMEN / Unknown 10/15/2024 1:35 PM CDT 10/15/2024 2:39 PM CDT us Provider Unknown LAB - HEMATOLOGY ORDERABLES Fin al Result Performing Organization Address City/State/[facility] Co de Phone Number [facility] [address] [place] [address] documented in this encounter Visit Diagnoses Not on filedocumented in this encounter Care Teams Feed Mixer Helper Relationship Specialty Start Date End Date Missael Boyce MD [address] [place] [phone] PCP - General Internal Medicine 08/22/15 documented as of this encounter
--- OUTSIDE RECORDS SUMMARY | 2025-01-10 15:01 | XMS_ITS | Clinical Summary ---
Author Organization [facility] Address [address] [place] [address] Care Team Providers Care Molding Press Operator Name Role Phone Missael Boyce MD Primary Care Provider [phone] Source Comments [facility],non-owned Affiliates and Associated Physician Practices is amultiple site organization consisting of ambulatory clinics and hospital sitesin [place], [place], [place] and [place]. This disclosure is being madepursuant to the Care Everywhere program and may not contain all information available regarding this patient. Last updated 17.[facility] [employer] Allergies Active Allergy Reactions Criticality Noted Date Comments Penicillins 08/22/2015 Medications * Be aware that medications may not be up to date on this document. Alwaysverify current medications with the patient. ARIPiprazole (ABILIFY) 30 MG tablet Take 30 [...] 2 mg by mouth once daily Active Cholecalcifero l (VITAMIN D3) 98048 UNITS capsule Take 50,000 Units by mouth every 7 days 6 Active albuterol HFA (PROVENTIL;KRISS TOLIN;PROAIR) 108 (90 BASE) MCG/ACT inhaler Inhale 1 Puff by mouth every 6 hours as needed Active ondansetron (ZOFRAN) 4 MG tablet Take 4 mg by mouth every 8 hours as needed for Nausea/Vomiting Active OLANZapine (ZYPREXA) 10 MG tabletIndicati ons:Agitation Take 10 mg by mouth every 6 [...] as needed for Anxiety Active LORazepam (ATIVAN) injectionIndic ations:Anxiety Inject 2 mg into muscle every 4 [...] 5 mg by mouth once daily Active Encounters Date Type Department Care Team Description 10/15/2024 Lab Requisition [facility] [address] [place] [id number] Unknown, Provider from Last 3 Months Social History Tobacco Use Types Packs/Day Years [...] 6:28 PM CDT Height 157.5 cm (5' 2) 08/17/2013 6:28 PM CDT Body Mass Index [...] 50+ (1 of 1 - PCV) 09/01/2001 Respiratory Syncytial Virus (RSV) Vaccine Pt: or over 60 yrs (1 - Risk 50-74 years 1-dose series) 09/01/2001 ZOSTER VACCINE (1 of 2) 09/01/2001 DEPRESSION SCREENING 02/17/2024 COVID-19 VACCINE ( - 2024-2 6 season) 2024 INFLUENZA VACCINE (#1) 2024 HEPATITIS B VACCINE Aged Out No longe [...] on patient's age to complete this topic Procedures Procedure Name Priority Date/Time Associated Diagnosis Comments CBC W AUTO DIFFERENTIAL STAT 10/15/2024 1:35 PM CDT from Last 3 Months Results * (ABNORMAL) CBC WITH DIFFERENTIAL (10/15/2024 1:35 PM CDT) Pathologist [facility] WBC 4.9 4.0 - 10.7 x10E9/L 10/15/2024 2:43 PM CDT [facility] RBC Count 3.30(L) 3.90 - 5.20 x10E12/L 10/15/2024 2:43 PM CDT [facility] Hemoglobin 10.6(L) 11.9 - 15.8 g/dL 10/15/2024 2:43 PM CDT [facility] Hematocrit 31.7(L) 34.8 - 46.1 % 10/15/2024 2:43 PM CDT [facility] MCV 96.1 80.0 - 98.0 fL 10/15/2024 2:43 PM CDT [facility] MCH 32.1 26.7 - 33.6 pg 10/15/2024 2:43 PM CDT [facility] MCHC 33.4 31.7 - 36.3 g/dL 10/15/2024 2:43 PM CDT [facility] RDW-CV 13.3 11.3 - 14.8 % 10/15/2024 2:43 PM CDT [facility] Platelet Count 241 150 - 420 x10E9/L 10/15/2024 2:43 PM CDT [facility] MPV 10.8 7.8 - 11.4 fL 10/15/2024 2:43 PM CDT [facility] Neutrophil % 52.4 41.0 - 74.0 % 10/15/2024 2:43 PM CDT [facility] Lymphocyte % 31.8 17.0 - 47.0 % 10/15/2024 2:43 PM CDT [facility] Monocyte % 12.6(H) 3.0 - 11.0 % 10/15/2024 2:43 PM CDT [facility] Eosinophil % 1.8 0.0 - 7.0 % 10/15/2024 2:43 PM CDT [facility] Basophil % 1.0 0.0 - 1.6 % 10/15/2024 2:43 PM CDT [facility] Immature Granulocytes % 0.4 0.0 - 1.0 % 10/15/2024 2:43 PM CDT [facility] Neutrophil Absolute 2.57 1.60 - 7.50 x10E9/L 10/15/2024 2:43 PM CDT [facility] Lymphocyte Absolute 1.56 1.00 - 4.40 x10E9/L 10/15/2024 2:43 PM CDT [facility] Monocyte Absolute 0.62 0.15 - 1.00 x10E9/L 10/15/2024 2:43 PM CDT [facility] Eosinophil Absolute 0.09 0.00 - 0.60 x10E9/L 10/15/2024 2:43 PM CDT [facility] Basophil Absolute 0.05 0.00 - 0.13 x10E9/L 10/15/2024 2:43 PM CDT [facility] Blood BLOOD SPECIMEN / Unknown 10/15/2024 1:35 PM CDT 10/15/2024 2:39 PM CDT us Provider Unknown LAB - HEMATOLOGY ORDERABLES Fin al Result Performing Organization Address City/State/[facility] Co de Phone Number [facility] [address] [place], [place] [id number] from Last 3 Months Insurance [facility] Care Teams Molding Press Operator Relationship Specialty Start Date End Date Missael Boyce MD [address] [place] [phone] PCP - General Internal Medicine 08/22/15
--- OUTSIDE RECORDS SUMMARY | 2025-01-10 15:01 | XMS_ITS | Clinical Summary ---
Author Organization [facility] Address [facility] [place] [address] Care Team Providers Care Water Conservation Specialist Name Role Phone None, Provider MD Primary Care Provider Unavaila ble Allergies Active Allergy Reactions Criticality Noted Date Comments Penicillins Unknown 06/02/2024 Medications * This document contains information received from the source organization and may not represent a complete record from that organization. sertraline (ZOLOFT) 100 MG tablet Take 1 tablet (100 mg total) by mouth daily. Total dose = 125 mg every morning Active sertraline (ZOLOFT) 25 MG tablet Take 1 tablet (25 mg total) by mouth daily. Total dose = 125 mg every morning 5 Active vitamin D2, ergocalciferol, (DRISDOL) 1.25 mg capsule Take 1 capsule (1.25 mg total) by mouth every 30 (thirty) days. 5 Active benztropine (COGENTIN) 0.5 MG Tab Take 1 tablet (0.5 mg total) by mouth 2 (two) times daily. Active ARIPiprazole (ABILIFY) 30 MG Tab tablet Take 1 tablet (30 mg total) by mouth daily. Active amLODIPine (NORVASC) 10 MG tablet Take 1 tablet (10 mg total) by mouth daily. Active potassium chloride CR (KLOR-CON M) 20 MEQ tablet Take 1 tablet (20 mEq total) by mouth daily. Active carBAMazepine (TEGRETOL) 200 MG tablet Take 1 tablet (200 mg total) by mouth 2 (two) times daily. 5 Active divalproex ER (DEPAKOTE) 250 MG 24 hr tablet Take 1 tablet (250 mg total) by mouth nightly at bedtime. Takes 500 mg by mouth in the morning and takes 750 mg by mouth in the evening. 5 Active divalproex ER (DEPAKOTE) 500 MG 24 hr tablet Take 1 tablet (500 mg total) by mouth 2 (two) times a day. Takes 500 mg by mouth in the morning and takes 750 mg by mouth in the evening. 5 Active ferrous sulfate, 65 mg elemental, 325 (65 FE) MG tablet Take 1 tablet (325 mg total) by mouth daily with breakfast. 4 Active atorvastatin (LIPITOR) 40 MG tablet Take 1 tablet (40 mg total) by mouth nightly at bedtime. 5 Active albuterol sulfate HFA 108 (90 Base) MCG/ACT inhaler Inhale 2 puffs into the lungs 4 (four) times daily. Active carvedilol (COREG) 3.125 MG tablet Take 1 tablet (3.125 mg total) by mouth 2 (two) times daily. 5 Active docusate sodium (COLACE) 100 MG capsule Take 1 capsule (100 mg total) by mouth daily. Active spironolactone (ALDACTONE) 25 MG tablet Take 1 tablet (25 mg total) by mouth daily. Active famotidine (PEPCID) 20 MG tablet Take 1 tablet (20 mg total) by mouth daily. Active fluticasone (FLOVENT HFA) 110 MCG/ACT inhaler Inhale 1 puff into the lungs 2 (two) times daily. Active ipratropium-alb uterol (DUONEB) 0.5-2.5 (3) MG/3ML Solution Take 3 mLs by nebulization every 6 (six) hours as needed (shortness of breath). Active magnesium oxide (MAG-OX) 400 (240 Mg) MG tablet Take 1 tablet (400 mg total) by mouth daily. Active acetaminophen (TYLENOL) 500 MG tablet Take 2 tablets (1,000 mg total) by mouth 3 (three) times daily. Active aspirin EC 81 MG tablet Take 1 tablet (81 mg total) by mouth daily. Active furosemide (LASIX) 40 MG tablet Take 1 tablet (40 mg total) by mouth daily. 30 tablet Active Active Problems Problem Noted Date Diagnosed Date VARSHA (acute kidney injury) 10/21/2024 Altered mental state 10/02/2024 Encounters Date Type Department Care Team Description 10/22/2024 Travel 10/21/2024 2:41 PM CDT - 10/23/2024 8:27 AM CDT Hospital Encounter [facility] [place] [address] Marija Trevizo, Ángel Barroso MD Syncope (While having BM) Discharge Disposition: Retirement Facility 10/21/2024 Travel from Last 3 Months Family History Relation Status Comments Father Alive Mother Unknown Social History Tobacco Use Types Packs/Day Years Used Date Smoking Tobacco: Never Smokeless Tobacco: Never Tobacco Cessation:Counseling Given: Not Answered Alcohol Use Standard Drinks/Week Comments Never 0 (1 standard drink = 0.6 oz pur e alcohol) [facility] Utilities Answer Date Recorded In the past 12 months has [employer], gas, oil, or water [employer] threatened to shut off services in your home? No 10/22/2024 Humiliation, Afraid, Rape, and Kick questionnair e Answer Date Recorded Within the last year, have y ou been afraid of your partner or ex-partner? No 10/22/2024 Within the last year, have y ou been humiliated or emotionally abused in other ways by your partner or ex-partner? No Within the last year, have y ou been kicked, hit, slapped, or otherwise physically hurt by your partner or ex-partner? No 10/22/2024 Within the last year, have y ou been raped or forced to have any kind of sexual activity by your partner or ex-partner? No 10/22/2024 AUDIT-C Answer Date Recorded Q1: How often do you have a drink containing alcohol? Never 10/22/2024 Q2: How many drinks containi ng alcohol do you have on a typical day when you are drinking? Patient does not drink Q3: How often do you have si x or more drinks on one occasion? Never 10/22/2024 Overall Financial Resource Strain (CARDIA) Answe r Date Recorded How hard is it for you to pa y for the very basics like food, housing, medical care, and heating? Not hard at all 10/22/2024 Hunger Vital Sign Answer Date Recorded Within the past 12 months, y ou worried that your food would run out before you got the money to buy more. Never true 10/23/19 25 Within the past 12 months, t he food you bought just didn't last and you didn't have money to get more. Never true 10/22/2024 PRAPARE - Transportation Answer Date Re corded In the past 12 months, has l ack of transportation kept you from medical appointments or from getting medications? No 07/2024 In the past 12 months, has l ack of transportation kept you from meetings, work, or from getting things needed for daily living? No 10/22/2024 Housing Stability Vital Sign Answer Isiah e Recorded In the last 12 months, was t here a time when you were not able to pay the mortgage or rent on time? No 10/22/2024 In the past 12 months, how m any times have you moved where you were living? 0 10/22/2024 At any time in the past 12 m [facility], were you homeless or living in a intermediate (including now)? No 10/22/2024 Comments Unknown Sex and Gender Information Value Date Recorded Sex Assigned at Female 06/02/2024 2:17 PM CDT Legal Sex Female 9:19 PM CDT Gender Identity Not on file Sexual Orientation Not on file Last Filed Vital Signs Vital Sign Reading Time Taken Comments Blood Pressure 154/78 10/23/2024 7:54 AM CDT Pulse 73 10/22/2024 7:22 PM CDT Temperature 36.7 C (98.1 F) 10/23/2024 7:54 AM CDT Respiratory Rate 20 10/22/2024 7:22 PM CDT Oxygen Saturation 100% 10/23/2024 7:54 AM CDT Inhaled Oxygen Concentration - - Weight 61.6 kg (135 lb 14.4 oz) 025 10:40 PM CDT Height 167.6 cm (5' 6) 10/21/2024 2:52 PM CDT Body Mass Index 21.93 10/21/2024 2:52 PM CDT Plan of Treatment Health Maintenance Due Date Last Done Comments Colorectal Cancer Screening Colonoscopy (10 Years) 1950 Hepatitis C 09/01/1969 DTaP, Tdap and Td Vaccines (1 - Tdap) 09/01/1970 Mammogram Screening 1991 Zoster Vaccines (1 of 2) 09/01/2001 RSV Immunization or 60+ Years (1 - Risk 60-74 years 1-dose series) 2011 Pneumococcal Vaccine: 50+ Years (2 of 2 - PCV) 05/15/2014 05/15/2013 Dexa Scan (General) 09/01/2016 COVID-19 Vaccine ( season) 2024 11/27/2022, 01/03/2022, 08/31/2021, Additional history exists Influenza Adult (#1) 2024 11/25/2014 Hepatitis A Vaccines Aged Out No long er eligible based on patient's age to complete this topic Meningococcal B Vaccine Aged Out No l onger eligible based on patient's age to complete this topic Meningococcal Vaccine Aged Out No rodney curtis eligible based on patient's age to complete this topic RSV Immunizations Under 20 Months Aged Out No longer eligible based on patient's age to complete this topic Procedures Procedure Name Priority Date/Time Associated Diagnosis Comments POCT GLUCOSE - DOCKED DEVICE Routine 10/23/2024 5:51 AM CDT POCT GLUCOSE - DOCKED DEVICE Routine 10/22/2024 7:25 PM CDT POCT GLUCOSE - DOCKED DEVICE Routine 10/22/2024 4:[address] HEAD WO CON STAT 10/22/2024 3:40 PM CDT USE ECHOCARDIOGRAM W CON Today 10/22/2024 11:33 AM CDT POCT GLUCOSE - DOCKED DEVICE Routine 10/22/2024 11:28 AM CDT HC BASIC METABOLIC PANEL Routine 10/22/2024 6:54 AM CDT POCT GLUCOSE - DOCKED DEVICE Routine 10/22/2024 5:59 AM CDT POCT GLUCOSE - DOCKED DEVICE Routine 10/21/2024 11:06 PM CDT HC TROPONIN QN STAT 10/21/2024 5:57 PM CDT XR CHEST PORTABLE STAT 10/21/2024 4:4 0 PM CDT PRO-BRAIN NATRIURETIC PEPTIDE Routine 10/21/2024 3:40 PM CDT HC TROPONIN QN STAT 10/21/2024 3:40 PM CDT HC COMPREHENSIVE METABOLIC PANEL STAT 10/21/2024 3:40 PM CDT HC CBC AUTO W/AUTO DIFF STAT 10/22/19 3:40 PM CDT ECG 12-LEAD Routine 10/21/2024 2:47 PM CDT from Last 3 Months Results * POCT glucose (10/23/2024 5:51 AM CDT) Only the most recent of6 resultswithin the time period is included. [facility] GLUCOSE POC 81 70 - 99 mg/dL 10/23/2024 5:55 AM CDT [facility] 10/23/2024 5:51 AM CDT us Ángel Bailey MD POCT ORDERABLES - DEVICE Melania l Result [facility] [address] [place] [address], [place] [phone] * CT HEAD WO CON (10/22/2024 3:40 PM CDT) Anatomical Region Laterality Modality Head Computed Tomogra phy 10/22/2024 4:15 PM CDT Impressions 10/22/2024 4:22 PM CDT IMPRESSION:===== 1. No acute intracranial abnormality is demonstrated. 2. Chronic small vessel ischemic changes, atrophy and cranial atherosclerosis. Referred By: Interpreted By: Dario Beaver MD, 10/22/2024 4:15 PM Narrative 10/22/2024 4:22 PM CDT [address] [address] EXAMINATION: CT of the head without contrast EXAM DATE/TIME: 10/22/2024 3:35 PM REASON FOR EXAM: Headache. Unwitnessed fall. COMPARISON: 10/02/2024 TECHNIQUE: No contrast. Automated exposure control was utilized for dose reduction. FINDINGS: No acute intracranial hemorrhage, mass effect or midline shift. Mild to moderate diffuse brain atrophy with diffusely prominent sulci. Moderate chronic small vessel ischemic changes in the white matter bilaterally. Few tiny chronic lacunar infarcts are suggested. Bustamante-white matter differentiation is adequately preserved. Deep nuclei and insular cortices are well-defined. Brainstem is somewhat obscured by artifact at the level of the skull base. Moderate intracranial atherosclerosis. Sinuses are clear. No acute fracture or destructive bone lesion. Proptosis of the globes. Empty sella noted. ===== Procedure Note Dario Beaver MD - 10/22/[address] [address] EXAMINATION: CT of the head without contrast EXAM DATE/TIME: 10/22/2024 3:35 PM REASON FOR EXAM: Headache. Unwitnessed fall. COMPARISON: 10/02/2024 TECHNIQUE: No contrast. Automated exposure control was utilized for dosereduction. FINDINGS: No acute intracranial hemorrhage, mass effect or midline shift.Mild to moderate diffuse brain atrophy with diffusely prominent sulci.Moderate chronic small vessel ischemic changes in the white matterbilaterally. Few tiny chronic lacunar infarcts are suggested. Bustamante-whitematter differentiation is adequately preserved. Deep nuclei and insularcortices are well-defined. Brainstem is somewhat obscured by artifact atthe level of the skull base. Moderate intracranial atherosclerosis.Sinuses are clear. No acute fracture or destructive bone lesion. Proptosisof the globes. Empty sella noted. ===== IMPRESSION:===== 1. No acute intracranial abnormality is demonstrated. 2. Chronic small vessel ischemic changes, atrophy and cranialatherosclerosis. Referred By: Interpreted By: Dario Beaver MD, 10/22/2024 4:15 PM us Ethan Du MD CT Final Result * USE ECHOCARDIOGRAM W CON (10/22/2024 11:33 AM CDT) Anatomical Region Laterality Modality NA Echocardiogram 10/22/2024 10:4 7 AM CDT Narrative 10/22/2024 12:32 PM CDT Echocardiography Report Pat.Name: GERMAINE ROSALES Pat.ID: [id number] St.Date: 10/22/2024 Refer.MD: MARY Exam Time: 10:47:00 AM Study Type:ECHO WITH CARDIAC DOPPLER COMP Height: 66 in Weight: 135 lb BSA: 1.69 m2 Age: 7 1950,74Y Sex: F BP: 142/77 HR: 70 bpm Sonogrphr: Deuce Mcmanus [facility] Pat. Stat.:Inpatient Room: [facility] Reason for Study:Elevated Troponin Procedures: 2D, M-mode, Doppler, Color Flow, Definity was used to enhance endocardial definition. The study quality is technically difficult. Diagnostic quality after administration of myocardial contrast. Race: B ++++++++++++++++++++++++++++++++++++ SUMMARY: ++++++++++++++++++++++++++++++++++++ Estimated left ventricular ejection fraction is 60-65%. Mild concentric left ventricular hypertrophy. Left ventricular diastolic function is abnormal (grade 1 - impaired relaxation). The mean left atrial pressure is normal. Wall motion appears normal in all segments. No significant valvular abnormalities seen. ++++++++++++++++++++++++++++++++++++ FINDINGS: ++++++++++++++++++++++++++++++++++++ LV: The left ventricular size is normal. Estimated left ventricular ejection fraction is 60-65%. Mild concentric left ventricular hypertrophy. Left ventricular diastolic function is abnormal (grade 1 - impaired relaxation). The mean left atrial pressure is normal. WM: Wall motion appears normal in all segments. RV: The right ventricular size is normal. Right ventricular systolic function is normal. IVS: No evidence of ventricular septal defect. LA: The left atrial volume is normal ( less than 34 ml/M2). RA: Right atrial size is normal. IAS: Atrial septum appears intact. EARNEST: No evidence of pericardial effusion. AO: Normal aortic root. SVn: Systemic veins not well visualized. AV: No evidence of aortic valve stenosis. No evidence of aortic valve regurgitation. The aortic valve not well visualized, appears to be trileaflet. MV: No evidence of significant mitral regurgitation. No evidence of mitral stenosis. Mildly calcified posterior mitral annulus. PV: No evidence of pulmonic valve stenosis. No evidence of pulmonic regurgitation. Pulmonic valve not well visualized. TV: No evidence of tricuspid regurgitation. Right ventricular systolic pressure is <25 mmHg. No evidence of tricuspid valve stenosis. ++++++++++++++++++++++++++++++++++++ MEASUREMENTS: ++++++++++++++++++++++++++++++++++++ DOPPLER LVOT LVOTpkPG 5 mmHg LVOTmnPG 3 mmHg LVOTpkVel 116 cm/s (70-110)+* LVOT SV 73 ml LVOT TVI 23.1 cm AV Forward Flow AV TVI 28.3 cm AV pkPG 7 mmHg AV pkVel 136 cm/s (100-170)+ Area (TVI) 2.56 cm2 (3-5)* AV mnPG 4 mmHg Area (Pete) 2.68 cm2 (3-5)* MV Forward Flow MV DeTm 139 msec MV E/A 0.4 MVA P1/2t 5.37 cm2 (4-6) MV pkE 67.9 cm/s (60-130) MV P1/2t 41 msec (30-60)+ MV pkA 194 cm/s PV Forward Flow PV TVI 26.5 cm PV mnVel 72.5 cm/s PV pkVel 117 cm/s (60-90)+* PV mnPG 3 mmHg PV pkPG 5 mmHg PV AC 110 msec TV Forward Flow TV pkE 78.1 cm/s Lat E' Lat e 5.44 cm/s Lat E/E' Lat E/e 12.5 Med E' Med e 5.44 cm/s Med E/E' Med E/e 12.5 Aortic Valve Aortic Valve Ar 1.51 Aortic Valve Ve 0.85 Left Ventricle LV IVRT 183 msec PV Antegrade Flow Acceleration Sl 1072 cm/s2 Pulmonary Veins PVn A Dur 92 msec Right Atrium Whittaker's Disk 20 Right Ventricle Right Ventricle 14.8 cm/s 2D Left Ventricle LVIDd 3.72 cm (3.6-5.2) LV ESV 12.7 ml LVIDs 2.96 cm (2.3-3.9) LV ESV 28.8 ml LngAxd 7.63 cm LVESV BP 20 ml LngAxd 8.23 cm LV EF 71.3 % LV EDV 44.1 ml LV EF 55.3 % LV EDV 64.5 ml LV EF BP 63.6 % LVEDV BP 55 ml LV SV 31.5 ml LngAxs 6.31 cm LV SV 35.7 ml LngAxs 7.09 cm LV SV BP 35 ml LVPW LVPWd 1.1 cm Right Ventricle RVIDd 2.97 cm (2.6-4.3) Right Ventricle 25.9 mm Right Ventricle 32.4 mm Right and Left 0.798 Major Yawkey 67.1 mm Ventricular Septum IVSd 1.02 cm Left Atrium LA VOLBP 46.9 ml Aorta Ao Rtd 2.9 cm LVOT LVOT 2 cm LVOTArea 3.14 cm2 Ratios IVS LA Biplane LAVol I BP 27.8 ml/m2 RA Single Plane Right Atrium MO 11.6 mm Right Atrium Sy 29.7 ml Right Atrium Sy 45.2 mm Right Atrium Sy 17.6 ml/m2 Right Atrium Sy 12.8 cm2 MMODE TA Tricuspid Annul 27.1 mm <Electronic Signature> 10/22/2024 12:32 PM Kori Acosta M.D. Procedure Note Kori Acosta MD - 10/22/2024 Echocardiography Report Pat.Name: GERMAINE ROSALES Pat.ID: [id number] St.Date: 10/22/2024 Refer.MD: MARY Exam Time: 10:47:00 AM Study Type:ECHO WITH CARDIAC DOPPLER COMP Height: 66 in Weight: 135 lb BSA: 1.69 m2 Age: 7 1950,74Y Sex: F BP: 142/77 HR: 70 bpm Sonogrphr: Deuce Mcmanus [facility] Pat. Stat.:Inpatient Room: [facility] Reason for Study:Elevated Troponin Procedures: 2D, M-mode, Doppler, Color Flow, Definity was used to enhance endocardial definition. The study quality is technically difficult. Diagnostic quality after administration of myocardial contrast. Race: B ++++++++++++++++++++++++++++++++++++ SUMMARY: ++++++++++++++++++++++++++++++++++++ Estimated left ventricular ejection fraction is 60-65%. Mild concentric left ventricular hypertrophy. Left ventricular diastolic function is abnormal (grade 1 - impaired relaxation). The mean left atrial pressure is normal. Wall motion appears normal in all segments. No significant valvular abnormalities seen. ++++++++++++++++++++++++++++++++++++ FINDINGS: ++++++++++++++++++++++++++++++++++++ LV: The left ventricular size is normal. Estimated left ventricular ejection fraction is 60-65%. Mild concentric left ventricular hypertrophy. Left ventricular diastolic function is abnormal (grade 1 - impaired relaxation). The mean left atrial pressure is normal. WM: Wall motion appears normal in all segments. RV: The right ventricular size is normal. Right ventricular systolic function is normal. IVS: No evidence of ventricular septal defect. LA: The left atrial volume is normal ( less than 34 ml/M2). RA: Right atrial size is normal. IAS: Atrial septum appears intact. EARNEST: No evidence of pericardial effusion. AO: Normal aortic root. SVn: Systemic veins not well visualized. AV: No evidence of aortic valve stenosis. No evidence of aortic valve regurgitation. The aortic valve not well visualized, appears to be trileaflet. MV: No evidence of significant mitral regurgitation. No evidence of mitral stenosis. Mildly calcified posterior mitral annulus. PV: No evidence of pulmonic valve stenosis. No evidence of pulmonic regurgitation. Pulmonic valve not well visualized. TV: No evidence of tricuspid regurgitation. Right ventricular systolic pressure is <25 mmHg. No evidence of tricuspid valve stenosis. ++++++++++++++++++++++++++++++++++++ MEASUREMENTS: ++++++++++++++++++++++++++++++++++++ DOPPLER LVOT LVOTpkPG 5 mmHg LVOTmnPG 3 mmHg LVOTpkVel 116 cm/s (70-110)+* LVOT SV 73 ml LVOT TVI 23.1 cm AV Forward Flow AV TVI 28.3 cm AV pkPG 7 mmHg AV pkVel 136 cm/s (100-170)+ Area (TVI) 2.56 cm2 (3-5)* AV mnPG 4 mmHg Area (Pete) 2.68 cm2 (3-5)* MV Forward Flow MV DeTm 139 msec MV E/A 0.4 MVA P1/2t 5.37 cm2 (4-6) MV pkE 67.9 cm/s (60-130) MV P1/2t 41 msec (30-60)+ MV pkA 194 cm/s PV Forward Flow PV TVI 26.5 cm PV mnVel 72.5 cm/s PV pkVel 117 cm/s (60-90)+* PV mnPG 3 mmHg PV pkPG 5 mmHg PV AC 110 msec TV Forward Flow TV pkE 78.1 cm/s Lat E' Lat e 5.44 cm/s Lat E/E' Lat E/e 12.5 Med E' Med e 5.44 cm/s Med E/E' Med E/e 12.5 Aortic Valve Aortic Valve Ar 1.51 Aortic Valve Ve 0.85 Left Ventricle LV IVRT 183 msec PV Antegrade Flow Acceleration Sl 1072 cm/s2 Pulmonary Veins PVn A Dur 92 msec Right Atrium Whittaker's Disk 20 Right Ventricle Right Ventricle 14.8 cm/s 2D Left Ventricle LVIDd 3.72 cm (3.6-5.2) LV ESV 12.7 ml LVIDs 2.96 cm (2.3-3.9) LV ESV 28.8 ml LngAxd 7.63 cm LVESV BP 20 ml LngAxd 8.23 cm LV EF 71.3 % LV EDV 44.1 ml LV EF 55.3 % LV EDV 64.5 ml LV EF BP 63.6 % LVEDV BP 55 ml LV SV 31.5 ml LngAxs 6.31 cm LV SV 35.7 ml LngAxs 7.09 cm LV SV BP 35 ml LVPW LVPWd 1.1 cm Right Ventricle RVIDd 2.97 cm (2.6-4.3) Right Ventricle 25.9 mm Right Ventricle 32.4 mm Right and Left 0.798 Major Yawkey 67.1 mm Ventricular Septum IVSd 1.02 cm Left Atrium LA VOLBP 46.9 ml Aorta Ao Rtd 2.9 cm LVOT LVOT 2 cm LVOTArea 3.14 cm2 Ratios IVS LA Biplane LAVol I BP 27.8 ml/m2 RA Single Plane Right Atrium MO 11.6 mm Right Atrium Sy 29.7 ml Right Atrium Sy 45.2 mm Right Atrium Sy 17.6 ml/m2 Right Atrium Sy 12.8 cm2 MMODE TA Tricuspid Annul 27.1 mm <Electronic Signature> 10/22/2024 12:32 PM Kori Acosta M.D. us Michael Martinez MD ECHO Final Resul t * (ABNORMAL) BASIC METABOLIC PANEL (10/22/2024 6:54 AM CDT) GLUCOSE 86 70 - 99 MG/DL 10/22/2024 7:34 AM T [facility] BUN 27(H) 7 - 18 MG/DL 10/22/2024 7:34 AM T [facility] CREATININE S/P/B 1.02 0.55 - 1.02 MG/DL 10/22/2024 7:34 AM T [facility] SODIUM S/P/B 138 136 - 145 MMOL/L 10/22/2024 7:34 AM T [facility] POTASSIUM S/P/B 3.2(L) 3.5 - 5.1 MMOL/L 10/22/2024 7:34 AM T [facility] CHLORIDE S/P/B 109 97 - 115 MMOL/L 10/22/2024 7:34 AM T [facility] CO2 25.1 21 - 32 MMOL/L 10/22/2024 7:34 AM [facility] CALCIUM S/P/B 8.8 8.5 - 10.1 MG/DL 10/22/2024 7:34 AM T [facility] ANION GAP 3.9 2 - 10 MMOL/L 10/22/2024 7:34 AM T [facility] BUN CREATININE RATIO 26.5(H) 6 - 26 10/22/2024 7:34 AM [facility] GFR ESTIMATE 58(L) >90 ML/MIN/1.7 3 M2 10/22/2024 7:34 AM [facility] Comment: NOTE: eGFR is not calculated for patients <18 years of age or gender unknown. This is an estimated GFR calculation using the new CKD EPI creatinine equation without race and so does not require a correction factor for race. This estimated GFR should not be used for calculating drug doses. 10/22/2024 6:54 AM CDT Michael Martinez MD LABORATORY Final Resul t [facility] [address] [place] [address], [place] [phone] * (ABNORMAL) TROPONIN, QUANT (10/21/2024 5:57 PM CDT) Only the most recent of2 resultswithin the time period is included. TROPONIN I HIGH SENSITIVITY 63(H) <54 ng/L 10/21/2024 6:43 PM CDT [facility] Comment: HIGH DOSES OF BIOTIN, TROPONIN-SPECIFIC AUTOANTIBODIES, AND ANTIBODY THERAPY CONTAINING HAMA MAY INTERFERE WITH THIS TEST RESULT. CORRELATION TO CLINICAL HISTORY AND PRESENTATION RECOMMENDED. 10/21/2024 5:57 PM CDT Marija Trevizo DO LABORATORY Final Result [facility] [address] [place] [id number], [place] [phone] * XR CHEST PORTABLE (10/21/2024 4:40 PM CDT) Anatomical Region Laterality Modality Chest Radiographic Mary Ann ging 10/21/2024 4:42 PM CDT Impressions 10/21/2024 4:44 PM CDT IMPRESSION: No acute pulmonary finding. Ordered By: MARIJA TREVIZO Interpreted By: Rodrigue Dobbins MD, 10/21/2024 4:42 PM Narrative 10/21/2024 4:44 PM CDT [facility] [address] [place], [place] [address] EXAMINATION: XR CHEST PORTABLE DATE: 10/21/2024 4:29 PM HISTORY: 74 years Female. SYNCOPE AND COLLAPSE COMPARISON: Chest radiography 10/02/2024. TECHNIQUE: Portable upright AP view of the chest. FINDINGS: Lungs are clear of consolidation. No pleural effusion or sizable pneumothorax. Cardiac silhouette and pulmonary vasculature are similar in prominence. Procedure Note Rodrigue Dobbins MD - 10/21/[address] [address] EXAMINATION: XR CHEST PORTABLE DATE: 10/21/2024 4:29 PM HISTORY: 74 years Female. SYNCOPE AND COLLAPSE COMPARISON: Chest radiography 10/02/2024. TECHNIQUE: Portable upright AP view of the chest. FINDINGS: Lungs are clear of consolidation. No pleural effusion or sizablepneumothorax. Cardiac silhouette and pulmonary vasculature are similar inprominence. IMPRESSION: No acute pulmonary finding. Ordered By: MARIJA TREVIZO Interpreted By: Rodrigue Dobbins MD, 10/21/2024 4:42 PM Marija Trevizo DO GENERAL IMAGING Final Result * (ABNORMAL) PRO-BRAIN NATRIURETIC PEPTIDE (10/21/2024 3:40 PM CDT) PRO-B TYPE NATRIURETIC PEPTIDE 1,022(H) <125 PG/ML 10/21/2024 10:25 PM CDT [facility] Comment: CUT POINTS ESTABLISHED BY [employer] ON NT PROBNP (ICON) STUDY (2006). AGE INDEPENDENT: <300 PG/ML HAS A 99% NEGATIVE PREDICTIVE VALUE FOR EXCLUDING ACUTE CHF <50 YEARS: >450 PG/ML IS CONSISTENT WITH ACUTE CHF 50-75 YEARS: >900 PG/ML IS CONSISTENT WITH ACUTE CHF >75 YEARS: >1800 PG/ML IS CONSISTENT WITH ACUTE CHF IN PATIENTS WITH RENAL INSUFFICIENCY (GFR <60), >1200 PG/ML YIELDS A DIAGNOSTIC SENSITIVITY AND SPECIFICITY OF 89% AND 72% FOR ACUTE CHF. 10/21/2024 3:40 PM CDT us Michael Martinez MD LABORATORY Final Resul t [facility] [address] [place] [address], [place] [phone] * (ABNORMAL) COMPREHENSIVE METABOLIC PANEL (10/21/2024 3:40 PM CDT) [facility] GLUCOSE 165(H) 70 - 99 MG/DL 10/21/2024 4:21 PM CDT [facility] BUN 36(H) 7 - 18 MG/DL 10/21/2024 4:21 PM CDT [facility] CREATININE S/P/B 1.82(H) 0.55 - 1.02 MG/DL 10/21/2024 4:21 PM CDT [facility] SODIUM S/P/B 136 136 - 145 MMOL/L 10/21/2024 4:21 PM CDT [facility] POTASSIUM S/P/B 3.5 3.5 - 5.1 MMOL/L 10/21/2024 4:21 PM CDT [facility] CHLORIDE S/P/B 104 97 - 115 MMOL/L 10/21/2024 4:21 PM CDT [facility] CO2 27.6 21 - 32 MMOL/L 10/21/2024 4:21 PM CDT [facility] CALCIUM S/P/B 9.3 8.5 - 10.1 MG/DL 10/21/2024 4:21 PM CDT [facility] BILIRUBIN TOTAL S/P/B 0.4 0.2 - 1.2 MG/DL 10/21/2024 4:21 PM CDT [facility] Comment: THIS ASSAY IS NOT RECOMMENDED FOR PATIENTS UNDERGOING TREATMENT WITH ELTROMBOPAG DUE TO THE POTENTIAL FOR FALSELY ELEVATED RESULTS. TOTAL PROTEIN S/P/B 6.9 6.4 - 8.2 G/DL 10/21/2024 4:21 PM CDT [facility] ALBUMIN S/P/B 3.2(L) 3.4 - 5.0 G/DL 10/21/2024 4:21 PM CDT [facility] AST 17 15 - 37 U/L 10/21/2024 4:21 PM CDT [facility] ALT 12(L) 14 - 55 U/L 10/21/2024 4:21 PM CDT [facility] ALKALINE PHOSPHATASE S/P/B 59 50 - 136 U/L 10/21/2024 4:21 PM CDT [facility] ANION GAP 4.4 2 - 10 MMOL/L 10/21/2024 4:21 PM T [facility] BUN CREATININE RATIO 19.8 6 - 26 10/21/2024 4:21 PM T [facility] A/G RATIO 0.9(L) 1.0 - 2.0 RATIO 10/21/2024 4:21 PM T [facility] GFR ESTIMATE 29(L) >90 ML/MIN/1.7 3 M2 10/21/2024 4:21 PM T [facility] Comment: NOTE: eGFR is not calculated for patients <18 years of age or gender unknown. This is an estimated GFR calculation using the new CKD EPI creatinine equation without race and so does not require a correction factor for race. This estimated GFR should not be used for calculating drug doses. 10/21/2024 3:40 PM CDT us Marija Trevizo DO LABORATORY Final Result [facility] [address] [place] [address], [place] [phone] * (ABNORMAL) CBC W/DIFF AUTOMATED (10/21/2024 3:40 PM CDT) [facility] WBC 3.67(L) 4.5 - 11.0 x10'3/uL 10/21/2024 4:04 PM CDT [facility] RBC 3.54(L) 4.20 - 5.40 x10'6/uL 10/21/2024 4:04 PM CDT [facility] HGB 11.3(L) 12.0 - 16.0 G/DL 10/21/2024 4:04 PM CDT [facility] HCT 33.3(L) 38.0 - 48.0 % 10/21/2024 4:04 PM CDT [facility] MCV 94.1 81.0 - 99.0 FL 10/21/2024 4:04 PM CDT [facility] MCH 31.9(H) 27.0 - 31.0 PG 10/21/2024 4:04 PM CDT [facility] MCHC 33.9 32.0 - 36.0 G/DL 10/21/2024 4:04 PM CDT [facility] RDW 13.6 11.5 - 14.5 % 10/21/2024 4:04 PM CDT [facility] PLT 211 130 - 400 x10'3/uL 10/21/2024 4:04 PM CDT [facility] MPV 11.3 9.3 - 12.2 FL 10/21/2024 4:04 PM CDT [facility] DIFFERENTIAL TYPE AUTOMATED DIFFERENTIAL 10/21/2024 4:04 PM CDT [facility] NEUTROPHILS % 46.8 % 10/21/2024 4:04 PM CDT [facility] LYMPHOCYTES % 40.6 % 10/21/2024 4:04 PM CDT [facility] MONOCYTES % 10.1 % 10/21/2024 4:04 PM CDT [facility] EOSINOPHILS 1.1 % 10/21/2024 4:04 PM CDT [facility] BASOPHILS 1.1 % 10/21/2024 4:04 PM CDT [facility] IMMATURE GRANS % 0.3 % 10/22/19 4:04 PM CDT [facility] ABS. NEUTROPHILS 1.72(L) 1.80 - 7.70 x10'3/uL 10/21/2024 4:04 PM CDT [facility] ABS. LYMPHOCYTES 1.49 1.00 - 4.80 x10'3/uL 10/21/2024 4:04 PM CDT [facility] ABS. MONOCYTES 0.37 0.24 - 0.86 x10'3/uL 10/21/2024 4:04 PM CDT [facility] ABS. EOSINOPHILS 0.04 0.04 - 0.36 x10'3/uL 10/21/2024 4:04 PM CDT [facility] ABS. BASOPHILS 0.04 0.01 - 0.08 x10'3/uL 10/21/2024 4:04 PM CDT [facility] ABS. IMMATURE GRANULOCYTES 0.01 0.00 - 0.49 x10'3/uL 10/21/2024 4:04 PM CDT [facility] 10/21/2024 3:40 PM CDT us Marija Trevizo DO LABORATORY Final Result [facility] [address] [place] [address], * ECG 12 lead (10/21/2024 2:47 PM CDT) 10/21/2024 2:47 PM CDT Narrative [facility] - 10/21/2024 2:[address] 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 Room: 970501 : 1950 Requested By: MARIJA TREVIZO Order Number: [id number] Reading MD: Measurements Intervals [place] Rate: 73 P: 80 UT: 175 QRS: 21 QRSD: 89 T: 111 QT: 400 QTc: 443 Interpretive Statements SINUS RHYTHM NONSPECIFIC T-WAVE ABNORMALITY Compared to ECG 10/02/2024 12:59:05 No significant changes No ischemic changes Preliminary EKG Interpretation by Marija Trevizo DO us Marija Trevizo DO ECG ORDERABLES Final Result [facility] from Last 3 Months Additional Health Concerns Infection Onset Date Last 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 ESBL - Extended Spectrum Bet a-lactamase Comment:10/02/24 +ESBL Urine 10/02/2024 10/02/2024 Insurance [employer] Advance Directives Documents on File Type Date Recorded Patient Gallery Host Expl anation Advance Directives and Livin g Will 05/11/2013 POWER OF TRAIN OPERATOR Advance Directives and Livin g Will 05/11/2013 * Full Code (Latest Code Status on File) Date Activated Date Inactivated Comments 10/21/2024 9:26 PM 10/23/2024 10:32 AM * Full Code Date Activated Date Inactivated Comments 10/02/2024 4:19 PM 10/05/2024 4:31 PM Care Teams Water Conservation Specialist Relationship Specialty Start Date End Date None, Provider, MD PCP - General UNKNOWN PHYSICIAN SPECIALTY 10/02/24
--- OUTSIDE RECORDS SUMMARY | 2025-01-10 15:01 | XMS_ITS | Clinical Summary ---
Author Organization [facility] Address [address] [place] [address] Care Team Providers Care Environmental Technical Officer Name Role Phone Kolby Sung MD Primary Care Provider [phone] Colten Kimble MD Unavailable Allergies Active Allergy Reactions Criticality Noted Date Comments Penicillins Other (see Comments),Rash,Swelling Medium 08/22/2015 Medications divalproex (DEPAKOTE ER) 500 MG TABLET SR 24 HR 3 Active sertraline (ZOLOFT) 25 MG Tablet 4 Active sertraline (ZOLOFT) 100 MG Tablet Take 100 mg by mouth. Active spironolactone (ALDACTONE) 25 MG Tablet 4 Active famotidine (PEPCID) 20 MG Tablet Take 20 mg by mouth daily. 3 Active amLODIPine (NORVASC) 10 MG Tablet Take 10 mg by mouth. Active aspirin 81 MG Chewable Tablet Take 81 mg by mouth. Active docusate sodium (DOK) 100 MG Tablet 2 Active ferrous sulfate 325 (65 Fe) MG Tablet Take 325 mg by mouth. 3 Active magnesium oxide (MAG-OX) 400 MG Tablet Take 400 mg by mouth. Active polyethylene glycol (GLYCOLAX) 17 GM/SCOOP Powder Take 17 g by mouth. 2 Active potassium chloride SA (KLORCON M) 10 MEQ Tablet Controlled Release 4 Active benztropine (COGENTIN) 0.5 MG Tablet Take 0.5 mg by mouth. 2 Active carvedilol (COREG) 3.125 MG Tablet 2 Active Flovent HFA 110 MCG/ACT Aerosol take 1 Puff by inhalation. 3 Active furosemide (LASIX) 40 MG Tablet Take 40 mg by mouth. 2 Active acetaminophen (TYLENOL) 500 MG Tablet Take 1,000 mg by mouth. Active haloperidol (HALDOL) 5 MG Tablet 2 Active hydrALAZINE 50 MG Tablet 4 Active albuterol 108 (90 Base) MCG/ACT Aerosol Solution take 2 Puffs by inhalation. 2 Active gabapentin (NEURONTIN) 400 MG Capsule 2 Active atorvastatin (LIPITOR) 40 MG Tablet Take 40 mg by mouth. 3 Active hydrOXYzine (ATARAX) 25 MG Tablet Take 25 mg by mouth. Active aripiprazole (ABILIFY) 30 MG Tablet Take 30 mg by mouth. Active carBAMazepine (TEGretol) 200 MG Tablet Take 200 mg by mouth. 5 Active Mirabegron ER 50 MG TABLET SR 24 HR Take 50 mg by mouth daily for 180 days. 30 Tablet 5 5 06/21/19 26 Active oxybutynin (DITROPAN-XL) 10 MG TABLET SR 24 HRIndications:Urg e urinary incontinence Take 1 Tablet by mouth daily. 90 Tablet 4 12/23/19 25 Discontinu ed(Alterna te therapy) Encounters Date Type Department Care Team Description 12/29/2024 Results Follow-Up [facility] [address] [place] [address] Colten Kimble MD CULTURE, URINE 12/22/2024 9:30 AM CONTACT REPRESENTATIVE Office Visit [facility] [place] [address] Colten Kimble MD Urge urinary incontinence (Primary Dx); Nocturnal enuresis; UTI symptoms Discharge Disposition: Discharged to home or Selfcare 12/22/2024 Travel from Last 3 Months Immunizations Immunization Administration Dates Next Due Covid-19, [...] Sign Reading Time Taken Comments Blood Pressure 178/92 12/22/2024 9:27 AM CONTACT REPRESENTATIVE Pulse 70 12/22/2024 9:27 AM CONTACT REPRESENTATIVE Temperature - - Respiratory Rate 16 12/22/2024 9:27 AM CONTACT REPRESENTATIVE Oxygen Saturation 97% 12/22/2024 9:27 AM CONTACT REPRESENTATIVE Inhaled Oxygen Concentration - - Weight 121.6 kg (268 lb) 12/22/2024 9:27 AM CONTACT REPRESENTATIVE Height 152.4 cm (5') 12/22/2024 9:27 AM CONTACT REPRESENTATIVE Body Mass Index 52.34 12/22/2024 9:27 AM CONTACT REPRESENTATIVE Plan of Treatment Upcoming Encounters Date Type Department Care Team (Late st Contact Info) Description 04/06/2025 9:00 AM CONTACT REPRESENTATIVE Office Visit [facility] [address] [place] [address] Colten Kimble MD [address] [address] Health Maintenance Due Date Last Done Comments DEXA Bone Density 1950 Hepatitis C Virus (HCV) Screening 1950 Mammogram 1950 TdaP Immunization 1950 Varicella Immunization (1 of 2 - 13+ 2-dose series) 09/01/1964 Cologuard 09/01/1996 Colonoscopy 09/01/1996 Colorectal Cancer Screening 09/01/1996 Immunochemical Fecal Occult Blood 09/01/1996 Respiratory Syncytial Virus (RSV) Immunization (Adult) (1 - Risk 50-74 years 1-dose series) 09/01/2001 Zoster Immunization (1 of 2) 09/01/2001 Pneumococcal Immunization (50+ years) (2 of 2 - PCV) 05/15/2014 05/15/2013 Influenza Immunization (#1) 2024 12/15/2023, 1 SARS-COV-2 Immunization ( season) 2024 11/27/2022, 01/03/2022, 08/31/2021, Additional history exists Hepatitis B Immunization Aged Out No longer eligible based on patient's age to complete this topic Human Papillomavirus (HPV) Immunization Aged Out No longer eligible based on patient's age to complete this topic Meningococcal Immunization (ACWY) Aged Out No longer eligible based on patient's age to complete this topic Rotavirus Immunization Aged Out No lo nger eligible based on patient's age to complete this topic Procedures Procedure Name Priority Date/Time Associated Diagnosis Comments POCT UA AUTOMATED W/O MICRO Routine 12/22/2024 10:03 AM CONTACT REPRESENTATIVE Urge urinary incontinence Nocturnal enuresis CULTURE, URINE Routine 12/22/2024 10:02 AM CONTACT REPRESENTATIVE Urge urinary incontinence UTI symptoms NEW,POST-VOID RES,US,NON-IMAGING Routine 12/22/2024 9:30 AM CONTACT REPRESENTATIVE Urge urinary incontinence Nocturnal enuresis from Last 3 Months Results * POCT UA AUTOMATED W/O MICRO (12/22/2024 10:03 AM CONTACT REPRESENTATIVE) POC UA SPECIFIC GRAVITY 1.005 URINE PH 5.0 5.0 - 9.0 POC URINE LEUKOCYTES Negative Negative Christal/uL POC URINE NITRITE Negative Negative POC URINE PROTEIN Negative Negative mg/dL POC URINE GLUCOSE Norm Negative, Norm mg/dL POC URINE KETONE Negative Negative mg/dL POC URINE UROBILINOGEN Norm Norm, 0.2 E.U./dL (mg/dL), 1 E.U./dL (mg/dL) POC URINE BILIRUBIN Negative Negative mg/dL POC URINE BLOOD INSTRUMENT Negative Negative Luis A/uL POC URINE COLOR Light Yellow POC URINE CLARITY Clear Urine 12/22/2024 10:0 3 AM CONTACT REPRESENTATIVE us Colten Kimble MD POINT OF CARE TESTING (MANUAL) F inal Result * CULTURE, URINE (12/22/2024 10:02 AM CONTACT REPRESENTATIVE) CULTURE RESULTS No growth final 12/23/2024 11:27 PM CONTACT REPRESENTATIVE [facility] Culture (Straight Catheter) Non-Phlebotomy Collection / Unknown 12/22/2024 10:02 AM CONTACT REPRESENTATIVE 12/22/2024 10:02 AM CONTACT REPRESENTATIVE us Colten Kimble MD MICROBIOLOGY - GENERAL ORDERABLE S Final Result [facility] [address] [place] [address], [place] * NEW,POST-VOID RES,US,NON-IMAGING (12/22/2024 9:30 AM CONTACT REPRESENTATIVE) Narrative Deedee Dao - 12/22/2024 9:30 AM CONTACT REPRESENTATIVE Deedee Dao 12/22/2024 10:10 AM POCT Bladder Scan collected per standing order of Dr. Kimble on 12/22/2024 PVR= 53 ML Colten Kimble MD [place] - SURGERY Final Result from Last 3 Months Insurance MEDICAID [facility] PL[facility] Care Teams Environmental Technical Officer Relationship Specialty Start Date End Date Kolby Sung MD [address] [facility] [address] [place] [address] PCP - General Internal Medicine 10/15/23 Colten Kimble MD [address] [facility] [address] [place] [address] Consulting Physician Urology 10/15/23
--- OUTSIDE RECORDS SUMMARY | 2025-01-10 15:01 | XMS_ITS | Encounter Summary ---
Author Organization [facility] Address [facility] [facility] [place] [address] Care Team Providers Care Tire Care Manager Name Role Phone Missael Boyce MD Primary Care Provider [phone] Encounter Details Date Type Department Care Team (Late st Contact Info) Description 05/28/2024 Lab Requisition [facility] [address] [place] [address] [address] [place], [place] [id number] Social History Tobacco Use Types Packs/Day Years [...] Diagnosis Comments CBC W AUTO DIFFERENTIAL STAT 05/28/2024 4:30 PM CDT BASIC METABOLIC PANEL (CALCIUM TOTAL) STAT 05/28/2024 4:30 PM CDT documented in this encounter Results * (ABNORMAL) BASIC METABOLIC PANEL (CALCIUM TOTAL) (05/28/2024 4:30 PM CDT) Glucose 95 70 - 99 mg/dL 05/28/2024 5:56 PM CDT [facility] Sodium 140 136 - 145 mmol/L 05/28/2024 5:56 PM CDT [facility] Potassium 4.1 3.5 - 5.1 mmol/L 05/28/2024 5:56 PM CDT [facility] Chloride 110(H) 98 - 107 mmol/L 05/28/2024 5:56 PM CDT [facility] CO2 22 22 - 29 mmol/L 05/28/2024 5:56 PM CDT [facility] Calcium 9.4 8.4 - 10.4 mg/dL 05/28/2024 5:56 PM CDT [facility] Anion Gap 8 6 - 16 mmol/L 05/28/2024 5:56 PM CDT [facility] BUN 15 7 - 26 mg/dL 05/28/2024 5:56 PM CDT [facility] Creatinine 0.93 0.57 - 1.11 mg/dL 05/28/2024 5:56 PM CDT [facility] eGFR by CKD-EPI 65(L) >=90 mL/min/1.7 3 m2 05/28/2024 5:56 PM CDT [facility] Blood BLOOD SPECIMEN / Unknown Venipuncture / Unknown 05/28/2024 4:30 PM CDT 05/28/2024 5:37 PM CDT [facility] LAB - CHEMISTRY ORDERABLES Melania l Result [facility] [address] [place] [address] * CBC WITH DIFFERENTIAL (05/28/2024 4:30 PM CDT) WBC 8.6 4.0 - 10.7 x10E9/L 05/28/2024 5:42 PM CDT [facility] RBC Count 4.98 3.90 - 5.20 x10E12/L 05/28/2024 5:42 PM CDT [facility] Hemoglobin 15.1 11.9 - 15.8 g/dL 05/28/2024 5:42 PM CDT [facility] Hematocrit 44.6 34.8 - 46.1 % 05/28/2024 5:42 PM CDT [facility] MCV 89.6 80.0 - 98.0 fL 05/28/2024 5:42 PM CDT [facility] MCH 30.3 26.7 - 33.6 pg 05/28/2024 5:42 PM CDT [facility] MCHC 33.9 31.7 - 36.3 g/dL 05/28/2024 5:42 PM CDT [facility] RDW-CV 12.5 11.3 - 14.8 % 05/28/2024 5:42 PM CDT [facility] Platelet Count 317 150 - 420 x10E9/L 05/28/2024 5:42 PM CDT [facility] MPV 10.9 7.8 - 11.4 fL 05/28/2024 5:42 PM CDT [facility] Neutrophil % 61.9 41.0 - 74.0 % 05/28/2024 5:42 PM CDT [facility] Lymphocyte % 29.3 17.0 - 47.0 % 05/28/2024 5:42 PM CDT [facility] Monocyte % 7.3 3.0 - 11.0 % 05/28/2024 5:42 PM CDT [facility] Eosinophil % 1.0 0.0 - 7.0 % 05/28/2024 5:42 PM CDT [facility] Basophil % 0.3 0.0 - 1.6 % 05/28/2024 5:42 PM CDT [facility] Immature Granulocytes % 0.2 0.0 - 1.0 % 05/28/2024 5:42 PM CDT [facility] Neutrophil Absolute 5.31 1.60 - 7.50 x10E9/L 05/28/2024 5:42 PM CDT [facility] Lymphocyte Absolute 2.52 1.00 - 4.40 x10E9/L 05/28/2024 5:42 PM CDT [facility] Monocyte Absolute 0.63 0.15 - 1.00 x10E9/L 05/28/2024 5:42 PM CDT [facility] Eosinophil Absolute 0.09 0.00 - 0.60 x10E9/L 05/28/2024 5:42 PM CDT [facility] Basophil Absolute 0.03 0.00 - 0.13 x10E9/L 05/28/2024 5:42 PM CDT [facility] Blood BLOOD SPECIMEN / Unknown Venipuncture / Unknown 05/28/2024 4:30 PM CDT 05/28/2024 5:37 PM CDT [facility] - HEMATOLOGY ORDERABLES Fin al Result [facility] [address] [place] [address] documented in this encounter Visit Diagnoses Not on filedocumented in this encounter Care Teams Tire Care Manager Relationship Specialty Start Date End Date Missael Boyce MD [address] [place] [phone] PCP - General Internal Medicine 08/22/15 documented as of this encounter
== END 2025-01-10 13:21 | disposition home or self-care (01) ==
PROVIDERS: Visit Provider Internal Medicine Critical Care Medicine
DX: M79.89 Other specified soft tissue disorders (principal)
CPT/HCPCS: 93970